=== PATIENT | male | born 1975 | race Caucasian/White ===

== ENCOUNTER 2016-09-13 21:06 | Inpatient (IN) | payer MEDICARE, OTHER ==
[2016-09-13] MEDS ORDERED: SODIUM CHLORIDE 0.9% 1,000 ML IV STA (23:23)
[2016-09-13 23:49] LABS: Glucose,Whole Blood 130 mg/dL (75-99)
[2016-09-13 23:49] LABS: Basophils # (A) 0.1 k/uL (0-0.2); Basophils % (A) 1 %; CH 26.3; CHCM 34.2; Eosinophils # (A) 0.4 k/uL (0-0.7); Eosinophils % (A) 3 %; HCT 42.2 % (39.0-53.0); HGB 14.1 gm/dL (13.0-17.5); Luc # (Auto) 0.25; Luc % (Auto) 2; Lymphocytes # (A) 5.2 k/uL (1.0-4.8); Lymphocytes % (A) 40 %; MCH 25.8 pg (25.0-35.0); MCHC 33.4 g/dL (31.0-37.0); MCV 77.2 fL (80.0-100.0); Mean Platelet Volume 6.5; Monocytes # (A) 0.8 k/uL (0-1.0); Monocytes % (A) 6 %; Neutrophils # (A) 6.3 k/uL (1.3-7.7); Neutrophils % (A) 48 %; RBC 5.46 m/uL (4.30-5.90); RDW 13.7 % (11.5-15.5); WBC (Perox) 12.19
[2016-09-14 00:08] LABS: ALT 56 U/L (21-72); AST 38 U/L (17-59); Alkaline Phosphatase 78 U/L (38-126); Anion Gap 13 mmol/L; Blood Urea Nitrogen 15 mg/dL (9-20); Calcium 10.3 mg/dL (8.4-10.2); Carbon Dioxide 21 mmol/L (22-30); Chloride 103 mmol/L (98-107); Glucose 120 mg/dL (74-99); Non-African American GFR(MDRD) >60 (>60 ml/min/1.73 sqM); Potassium 4.3 mmol/L (3.5-5.1); Sodium 137 mmol/L (137-145); Total Bilirubin 0.8 mg/dL (0.2-1.3); Total Protein 7.4 g/dL (6.3-8.2)
--- NOTE | 2016-09-14 00:32 | CT ---
EXAM: CT Head Without Intravenous Contrast CLINICAL HISTORY: Reason: seizure activity TECHNIQUE: Axial computed tomography images of the head/brain without intravenous contrast. CTDI is 60.30 mGy and DLP is 1253.30 mGy-cm. This CT exam was performed using one or more of the following dose reduction techniques: automated exposure control, adjustment of the mA and/or kV according to patient size, and/or use of iterative reconstruction technique. COMPARISON: 05/17/[address] FINDINGS: Brain: Unremarkable. No hemorrhage. No significant white matter disease. No edema. Ventricles: Unremarkable. No ventriculomegaly. Bones/joints: Unremarkable. No acute fracture. Soft tissues: Unremarkable. Sinuses: There is again a small round filling defects suggesting a mucous retention cyst or polyp in the right sphenoid sinus, currently 13 mm, was previously 11-12 mm, in AP diameter. The remaining paranasal sinuses are clear. Mastoid air cells: Unremarkable. No mastoid effusion. IMPRESSION: 1. No new acute intracranial abnormality is seen. 2. Minimally increased size of right sphenoid sinus mucous retention cyst versus polyp.
[2016-09-14 02:50] LABS: Appearance,Urine Clear (Clear); Bilirubin,Urine Negative (Negative); Glucose,Urine (UA) Negative (Negative); Ketones,Urine Trace (Negative); Leukocyte Esterase,Urine Negative (Negative); Nitrite,Urine Negative (Negative); PH, Urine 5.5 (5.0-8.0); Protein,Urine Trace (Negative); Specific Gravity,Urine 1.022 (1.001-1.035); UA Billing (MACRO vs. MICRO) CHEM; Urobilinogen,Urine <2.0 mg/dL (<2.0)
[2016-09-14] MEDS ORDERED: ACETAMINOPHEN TAB 325 MG TAB PO PRN (03:36)
[2016-09-14] MEDS ORDERED: NALOXONE 0.4 MG/ML 1 ML VIAL IV PRN (03:36)
[2016-09-14] MEDS ORDERED: ONDANSETRON 4 MG/2 ML VIAL IVP PRN (03:36)
--- NOTE | 2016-09-14 03:36 | ED ---
Seizure HPI - General Chief Complaint: Seizure Stated Complaint: Seizures Time Seen by Provider: 09/13/16 23:06 Source: patient Mode of arrival: wheelchair Limitations: no limitations - History of Present Illness Initial Comments: The patient stated he had 3 seizures today first one was at 2 PM this morning and at that time he felt he got lightheaded, he was presyncopal then he passed out he fell on the floor, it took him about 2 minutes to get back to his baseline second seizure according to the patient happened around 245 he again fell is not sure if he passed out completely or not and this time it took them about 10 minutes to get back to his baseline third seizure happened this lasted long and it affected his right arm and the right leg and it took about 10 minutes of patient's symptoms resolved. Right now he has a headache no chest pain no shortness of breath he has no history of TIA or CVA his vision is clear - Related Data Home Medications Medication Instructions Recorded Confirmed Insulin Glargine [Lantus] 50 units SQ HS 03/23/15 09/23/15 Ergocalciferol [Vitamin D2] 50,000 unit PO MONROY 05/17/15 09/23/15 Insulin Aspart [NovoLOG] See Protocol SQ AC-TID 05/17/15 09/23/15 hydrOXYzine PAMOATE [Vistaril] 25 mg PO TID 05/17/15 09/23/15 Butalb/Acetaminophen/Caffeine 1 - 2 tab PO Q4H PRN 08/24/15 09/23/15 [Fioricet] Lisinopril [Zestril] 10 mg PO HS 08/24/15 09/23/15 Multivitamins, Thera [Multivitamin] 1 tab PO DAILY 08/24/15 09/23/15 metFORMIN HCL 1,000 mg PO BID 08/24/15 09/23/15 risperiDONE MICROSPHERES 50 mg IM Q14D 09/23/15 09/23/15 [RisperDAL CONSTA] Previous Rx's Medication Instructions Recorded Hydrocodone/Acetaminophen [[place] 1 tab PO Q6HR PRN #20 tab 09/23/15 5-325] Allergies Allergy/AdvReac Type Severity Reaction Status Date / Time carbamazepine [From Tegretol] Allergy Severe Anaphylaxis Verified 09/23/15 10:50 lithium [[place]] Allergy Severe Anaphylaxis Verified 09/23/15 10:50 shellfish derived Allergy Severe Anaphylaxis Verified 09/23/15 10:50 aspartame Allergy Unknown Verified 09/23/15 10:50 citalopram hydrobromide AdvReac Intermediate Nausea & Verified 09/23/15 10:50 [From Celexa] Vomiting Review of Systems ROS Statement: Those systems with pertinent positive or pertinent negative responses have been documented in the HPI. ROS Other: All systems not noted in ROS Statement are negative. Past Medical History Past Medical History: Diabetes Mellitus, Hypertension, Seizure Disorder Additional Past Medical History / Comment(s): last seizure 2.5yrs ago History of Any Multi-Drug Resistant Organisms: None Reported Past Surgical History: Hernia Repair, Orthopedic Surgery, Tonsillectomy Additional Past Surgical History / Comment(s): right knee sx, upper palate reconstruction for sleep apnea Past Anesthesia/Blood Transfusion Reactions: No Reported Reaction Past Psychological History: Bipolar, Depression, Schizophrenia Smoking Status: Former smoker Past Alcohol Use History: None Reported Past Drug Use History: None Reported - Past Family History Mother Family Medical History: Diabetes Mellitus Additional Family Medical History / Comment(s): CHF General Exam - General Exam Comments Initial Comments: General: The patient is awake and alert, in no distress, and does not appear acutely ill. GCS is 15 Skin: Skin is warm and dry and no rashes or lesions are noted. Eye: Pupils are equal, round and reactive to light, extra-ocular movements are intact; there is normal conjunctiva bilaterally. Ears, nose, mouth and throat: There are moist mucous membranes and no oral lesions. Neck: The neck is supple, there is no tenderness or JVD. Cardiovascular: There is a regular rate and rhythm. No murmur, rub or gallop is appreciated. Respiratory: To auscultation bilateral, no wheezing no rhonchi no distress respiratory parker noticed Gastrointestinal: Soft, non-distended, non-tender abdomen without masses or organomegaly noted. There is no rebound or guarding present. Bowel sounds are unremarkable. Back: There is no tenderness to palpation in the midline. There is no obvious deformity. Musculoskeletal: Normal ROM, no tenderness, There is no pedal edema. There is no calf tenderness or swelling. No cords were appreciated. Neurological: CN II-XII intact, Cranial nerves III through XII are intact. There are no obvious motor or sensory deficits. Coordination appears grossly intact. Speech is normal. Psychiatric: Cooperative, appropriate mood & affect, normal judgment. Limitations: no limitations Course Vital Signs 09/13/16 09/14/16 09/14/16 21:08 00:00 02:05 Temperature 97.1 F L 97.7 F Pulse Rate 112 H 113 H 100 Respiratory 18 18 18 Rate Blood Pressure 131/73 124/70 136/63 O2 Sat by Pulse 96 98 100 Oximetry - Reevaluation(s) Reevaluation #1: 09/14/16 03:35 , He was reassessed 3 times, his white count is slightly elevated troponin is negative compressive metabolic panel and head CT and urinalysis all those are within normal limits considering pressing at 3 times he be admitted to Dr. Grossman service who has seen him back in the hospital 12/27/2014 and will consult neurology Medical Decision Making - Lab Data Result diagrams: 09/13/16 23:20 09/13/16 23:20 Lab Results 09/13/16 09/13/16 09/13/16 Range/Units 23:20 23:20 23:20 WBC 13.0 H (3.8-10.6) k/uL RBC 5.46 (4.30-5.90) m/uL Hgb 14.1 (13.0-17.5) gm/dL Hct 42.2 (39.0-53.0) % MCV 77.2 L (80.0-100.0) fL MCH 25.8 (25.0-35.0) pg MCHC 33.4 (31.0-37.0) g/dL RDW 13.7 (11.5-15.5) % Plt Count 358 (150-450) k/uL Neutrophils % 48 % Lymphocytes % 40 % Monocytes % 6 % Eosinophils % 3 % Basophils % 1 % Neutrophils # 6.3 (1.3-7.7) k/uL Lymphocytes # 5.2 H (1.0-4.8) k/uL Monocytes # 0.8 (0-1.0) k/uL Eosinophils # 0.4 (0-0.7) k/uL Basophils # 0.1 (0-0.2) k/uL Sodium 137 (137-145) mmol/L Potassium 4.3 (3.5-5.1) mmol/L Chloride 103 (98-107) mmol/L Carbon Dioxide 21 L (22-30) mmol/L Anion Gap 13 mmol/L BUN 15 (9-20) mg/dL Creatinine 1.02 (0.66-1.25) mg/dL Est GFR (MDRD) Af Amer >60 (>60 ml/min/1.73 sqM) Est GFR (MDRD) Non-Af >60 (>60 ml/min/1.73 sqM) Glucose 120 H (74-99) mg/dL POC Glucose (mg/dL) (75-99) mg/dL POC Glu Security Checker ID Calcium 10.3 H (8.4-10.2) mg/dL Total Bilirubin 0.8 (0.2-1.3) mg/dL AST 38 (17-59) U/L ALT 56 (21-72) U/L Alkaline Phosphatase 78 (38-126) U/L Troponin I <0.012 (0.000-0.034) ng/mL Total Protein 7.4 (6.3-8.2) g/dL Albumin 4.3 (3.5-5.0) g/dL Urine Color Urine Appearance (Clear) Urine pH (5.0-8.0) Ur Specific [place] (1.001-1.035) Urine Protein (Negative) Urine Glucose (UA) (Negative) Urine Ketones (Negative) Urine Blood (Negative) Urine Nitrite (Negative) Urine Bilirubin (Negative) Urine Urobilinogen (<2.0) mg/dL Ur Leukocyte Esterase (Negative) Urine Opiates Screen (NotDetected) Ur Oxycodone Screen (NotDetected) Urine Methadone Screen (NotDetected) Ur Propoxyphene Screen (NotDetected) Ur Barbiturates Screen (NotDetected) U Tricyclic Antidepress (NotDetected) Ur Phencyclidine Scrn (NotDetected) Ur Amphetamines Screen (NotDetected) U Methamphetamines Scrn (NotDetected) U Benzodiazepines Scrn (NotDetected) Urine Cocaine Screen (NotDetected) U Marijuana (THC) Screen (NotDetected) 09/13/16 09/14/16 Range/Units 23:40 02:24 WBC (3.8-10.6) k/uL RBC (4.30-5.90) m/uL Hgb (13.0-17.5) gm/dL Hct (39.0-53.0) % MCV (80.0-100.0) fL MCH (25.0-35.0) pg MCHC (31.0-37.0) g/dL RDW (11.5-15.5) % Plt Count (150-450) k/uL Neutrophils % % Lymphocytes % % Monocytes % % Eosinophils % % Basophils % % Neutrophils # (1.3-7.7) k/uL Lymphocytes # (1.0-4.8) k/uL Monocytes # (0-1.0) k/uL Eosinophils # (0-0.7) k/uL Basophils # (0-0.2) k/uL Sodium (137-145) mmol/L Potassium (3.5-5.1) mmol/L Chloride (98-107) mmol/L Carbon Dioxide (22-30) mmol/L Anion Gap mmol/L BUN (9-20) mg/dL Creatinine (0.66-1.25) mg/dL Est GFR (MDRD) Af Amer (>60 ml/min/1.73 sqM) Est GFR (MDRD) Non-Af (>60 ml/min/1.73 sqM) Glucose (74-99) mg/dL POC Glucose (mg/dL) 130 H (75-99) mg/dL POC Glu Security Checker ID Nawaf Hamilton Calcium (8.4-10.2) mg/dL Total Bilirubin (0.2-1.3) mg/dL AST (17-59) U/L ALT (21-72) U/L Alkaline Phosphatase (38-126) U/L Troponin I (0.000-0.034) ng/mL Total Protein (6.3-8.2) g/dL Albumin (3.5-5.0) g/dL Urine Color Yellow Urine Appearance Clear (Clear) Urine pH 5.5 (5.0-8.0) Ur Specific [place] 1.022 (1.001-1.035) Urine Protein Trace H (Negative) Urine Glucose (UA) Negative (Negative) Urine Ketones Trace H (Negative) Urine Blood Negative (Negative) Urine Nitrite Negative (Negative) Urine Bilirubin Negative (Negative) Urine Urobilinogen <2.0 (<2.0) mg/dL Ur Leukocyte Esterase Negative (Negative) Urine Opiates Screen Not Detected (NotDetected) Ur Oxycodone Screen Not Detected (NotDetected) Urine Methadone Screen Not Detected (NotDetected) Ur Propoxyphene Screen Not Detected (NotDetected) Ur Barbiturates Screen Not Detected (NotDetected) U Tricyclic Antidepress Not Detected (NotDetected) Ur Phencyclidine Scrn Not Detected (NotDetected) Ur Amphetamines Screen Not Detected (NotDetected) U Methamphetamines Scrn Not Detected (NotDetected) U Benzodiazepines Scrn Not Detected (NotDetected) Urine Cocaine Screen Not Detected (NotDetected) U Marijuana (THC) Screen Detected H (NotDetected) Disposition Clinical Impression: Seizure, Syncope, Tachycardia Disposition: ADMITTED IP TO THIS [facility] Condition: Fair Referrals: Nonstaff,Physician [Primary Care Provider] - 1-2 days
[2016-09-14] MEDS ORDERED: LORazepam 2 MG/ML SYRINGE IV PRN (04:08)
[2016-09-14] MEDS: HYDROcodone/APAP 5-325MG 1 EACH TAB PO PRN ×2 (05:07→11:49)
[2016-09-14 05:42] VITALS: RESP 16
[2016-09-14] MEDS: DIVALPROEX 500 MG TABLET.DR PO SCH ×2 (05:46→08:59)
[2016-09-14 07:44] LABS: Glucose,Whole Blood 120 mg/dL (75-99)
[2016-09-14] MEDS: hydrOXYzine PAMOATE 25 MG CAP PO SCH ×2 (08:58→17:31)
[2016-09-14] MEDS ORDERED: metFORMIN 500 MG TAB PO SCH (09:00)
[2016-09-14] MEDS ORDERED: MULTIVITAMINS, THERA 1 EACH TAB PO SCH (09:00)
[2016-09-14 09:24] VITALS: TEMP 97.4
[2016-09-14 12:04] LABS: Glucose,Whole Blood 89 mg/dL (75-99)
--- NOTE | 2016-09-14 16:11 | P.DS ---
Providers Date of admission: 09/14/16 03:36 Expected date of discharge: 09/14/16 Attending physician: Rashawn Rueda Primary care physician: Physician Nonsta Hospital Course: 41-year-old admitted on the day of admission to the emergency room after patient reportedly had experienced 3 seizures at home. Patient stated he got lightheadedness felt like he was going to pass out and he fell on the floor to come about 2 minutes to get back to his baseline had a second seizure apparently passed out and then stated he had another seizure. Patient stated he is not sure how long seizures last. Patient's symptoms resolved had no headache felt most shortness of breath has no history of a TIA or CVA patient is a history of having a seizure disorder but stated that he stopped taking his seizure medication not certain of the timeframe because he had been feeling so good he had not had any seizures he thinks it's been greater than 3 years. She was seen in the emergency room did have a CAT scan of the brain showed no new acute intracranial morality. Patient was felt to be hemodynamically stable and appropriate proceed with a discharge Impression Present on admission new onset seizure History of a seizure disorder stopped taking his seizure medication 3 years last seizure per patient report Urine drug screen positive for marijuana Present on admission leukocytosis suspect reactive Tachycardia present on admission suspect reactive Morbid obesity BMI 41 The above dictated assessment and findings were discussed with dr rueda. Impression and the plan of care have been dictated as directed. Aurora Tenorio nurse practitioner acting as a scribe for dr rueda Patient Condition at Discharge: Fair Plan - Discharge Summary New Discharge Prescriptions: New Divalproex [Depakote] 1,000 mg PO BID #120 tab Continue Insulin Glargine [Lantus] 50 units SQ HS Ergocalciferol [Vitamin D2 (DRISDOL)] 50,000 unit PO MONROY Insulin Aspart [NovoLOG] See Protocol SQ AC-TID Multivitamins, Thera [Multivitamin (formulary)] 1 tab PO DAILY Butalb/Acetaminophen/Caffeine [Fioricet 50-325-40] 1 - 2 tab PO Q4H PRN PRN Reason: Headache risperiDONE MICROSPHERES [RisperDAL CONSTA] 50 mg IM Q14D Hydrocodone/Acetaminophen [Lissie 5-325] 1 tab PO Q6HR PRN #20 tab PRN Reason: Pain Atorvastatin Calcium [Lipitor] 20 mg PO HS DULoxetine HCL [Cymbalta] 60 mg PO BID hydrOXYzine PAMOATE [Vistaril] 50 mg PO DAILY@1200 hydrOXYzine PAMOATE [Vistaril] 100 mg PO HS Lisinopril [Prinivil] 5 mg PO DAILY metFORMIN HCL [Glucophage] 850 mg PO TID traZODone HCL [Desyrel] 100 mg PO HS Discharge Medication List Insulin Glargine [Lantus] 50 units SQ HS 03/23/15 [History] Ergocalciferol [Vitamin D2 (DRISDOL)] 50,000 unit PO MONROY 05/17/15 [History] Insulin Aspart [NovoLOG] See Protocol SQ AC-TID 05/17/15 [History] Butalb/Acetaminophen/Caffeine [Fioricet 50-325-40] 1 - 2 tab PO Q4H PRN [History] Multivitamins, Thera [Multivitamin (formulary)] 1 tab PO DAILY 08/24/15 [History ] Hydrocodone/Acetaminophen [Lissie 5-325] 1 tab PO Q6HR PRN #20 tab 09/23/15 [Rx] risperiDONE MICROSPHERES [RisperDAL CONSTA] 50 mg IM Q14D 09/23/15 [History] Atorvastatin Calcium [Lipitor] 20 mg PO HS 09/14/16 [History] DULoxetine HCL [Cymbalta] 60 mg PO BID 09/14/16 [History] Divalproex [Depakote] 1,000 mg PO BID #120 tab 09/14/16 [Rx] Lisinopril [Prinivil] 5 mg PO DAILY 09/14/16 [History] hydrOXYzine PAMOATE [Vistaril] 50 mg PO DAILY@1200 09/14/16 [History] hydrOXYzine PAMOATE [Vistaril] 100 mg PO HS 09/14/16 [History] metFORMIN HCL [Glucophage] 850 mg PO TID 09/14/16 [History] traZODone HCL [Desyrel] 100 mg PO HS 09/14/16 [History] Follow up Appointment(s)/Referral(s): Nonstaff,Physician [Primary Care Provider] - 1-2 days Rashawn Rueda MD [STAFF PHYSICIAN] - 09/15/16 Discharge Disposition: HOME SELF-CARE
[2016-09-14 16:33] VITALS: BP 102/55; PULSE 86
--- NOTE | 2016-09-14 18:47 | HP ---
DATE OF ADMISSION: CHIEF COMPLAINT: Three seizures. HISTORY OF PRESENT ILLNESS: This is another admission for this 41-year-old overweight white male. He apparently had 3 different seizures at home in rapid succession. He does not remember them and he was not incontinent. He was brought to the emergency room. He has not been seen in the office for 2 years. He does have a history of migraines, but no seizures. He has a history of depression, hypertension and diabetes. REVIEW OF SYSTEMS: He denies any headaches, focal neurologic deficits, change in vision or hearing, chest pain, cough, hemoptysis, murmurs, rheumatic fever, orthopnea, PND, abdominal pain, nausea, vomiting, hematemesis, melena, hematochezia, jaundice, hepatitis, hematuria, frequency, urgency, arthralgias, polys, etc. Past medical history, family history and personal and social histories reveal that he is ALLERGIC TO: 1. SHELLFISH. 2. LITHIUM. 3. CELEXA. 4. TEGRETOL. Current medications include: 1. Metformin. 2. Lantus. 3. Lisinopril. 4. Cymbalta. 5. Risperdal. 6. Vistaril. He denies surgery. He smokes marijuana but does not drink. PHYSICAL EXAMINATION: Blood pressure 134/78 with pulse of 70, respirations 18, and he is afebrile. In general, he appeared to be overweight and in no acute distress. Skin color is normal. Skin is warm and dry. Lymph nodes are not enlarged. Head, ears, eyes, nose, mouth and throat were normal. Neck veins were not distended. Thyroid was not enlarged. Chest is clear. Cardiac exam is normal. No murmurs or extra sounds. ABDOMEN: Protuberant, soft, nontender. Extremities are normal. Neurologically he is intact. He is admitted to the hospital with the diagnoses: 1. Three grand mal seizures by history. 2. Headache. 3. Type 2 [id number] diabetes mellitus. 4. Hypertension. 5. Depression. 6. Obesity. PLAN: 1. Bed rest. 2. Suicide precautions. 3. Depakote 1 gram twice a day. He had a seizure about 2 years ago and then was taken off medication. He was told that he probably should go on medicine for his seizures and stay on it for life. He can go home later today.
[2016-09-14 20:45] LABS: Hemoglobin A1C 6.4 % (4.2-6.1)
[2016-09-14] MEDS ORDERED: INSULIN GLARGINE 100 UNIT/ML 10 ML VIAL SQ SCH (21:00)
[2016-09-14] MEDS ORDERED: LISINOPRIL 10 MG TAB PO SCH (21:00)
--- NOTE | 2016-09-15 21:46 | PN ---
DATE OF SERVICE: 09/14/2016 CHIEF COMPLAINT: Seizure. HISTORY OF PRESENT ILLNESS: The gentleman is doing well. He is having no problems. If he is going to stay stable, he can probably go home this afternoon and we will see him in the office in several days. He will go home on Depakote 1 gram twice a day. His discharge will be arranged by the nurse practitioner.
[2016-09-17] MEDS ORDERED: ERGOCALCIFEROL 50,000 UNIT CAP PO SCH (09:00)
== END 2016-09-14 18:30 | disposition home or self-care (01) | DRG 101 ==
LOC: EC 21:06 → 5MS5E 09-14 03:36
PROVIDERS: ADMIT Family Medicine; ATTEND Family Medicine
DX: G40.409 Other generalized epilepsy and epileptic syndromes, not intractable, without status epilepticus (principal); I10 Essential (primary) hypertension; Z68.41 Body mass index [BMI] 40.0-44.9, adult; E11.9 Type 2 diabetes mellitus without complications; D72.829 Elevated white blood cell count, unspecified; F32.9 Major depressive disorder, single episode, unspecified; F12.90 Cannabis use, unspecified, uncomplicated; E66.01 Morbid (severe) obesity due to excess calories; R51 Headache; Z88.8 Allergy status to other drugs, medicaments and biological substances; Z91.013 Allergy to seafood; Z79.84 Long term (current) use of oral hypoglycemic drugs; Z79.4 Long term (current) use of insulin; Z79.899 Other long term (current) drug therapy
CPT/HCPCS: 36415; 70450; 80053; 80306; 81003; 83036; 84484; 85025; 93005; 96360; 96361; 99285

== ENCOUNTER 2017-07-13 18:47 | Emergency (ER) | payer MEDICARE, OTHER ==
[2017-07-13] MEDS ORDERED: SODIUM CHLORIDE 0.9% 1,000 ML IV STA ×2 (19:16)
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
[2017-07-13 19:45] LABS: Basophils # (A) 0.1 k/uL (0-0.2); Basophils % (A) 0 %; Eosinophils # (A) 0.3 k/uL (0-0.7); Eosinophils % (A) 3 %; HCT 36.7 % (39.0-53.0); HGB 12.3 gm/dL (13.0-17.5); Lymphocytes # (A) 3.7 k/uL (1.0-4.8); Lymphocytes % (A) 33 %; MCHC 33.4 g/dL (31.0-37.0); MCV 77.8 fL (80.0-100.0); Mean Platelet Volume 7.2; Monocytes # (A) 0.8 k/uL (0-1.0); Monocytes % (A) 7 %; Neutrophils # (A) 6.1 k/uL (1.3-7.7); Neutrophils % (A) 54 %; Platelet Count 318 k/uL (150-450); RBC 4.71 m/uL (4.30-5.90); RDW 13.5 % (11.5-15.5); WBC 11.3 k/uL (3.8-10.6)
[2017-07-13 19:55] LABS: ALT 45 U/L (21-72); AST 28 U/L (17-59); Acetaminophen 20.8 ug/mL; Albumin 3.7 g/dL (3.5-5.0); Alkaline Phosphatase 77 U/L (38-126); Anion Gap 10 mmol/L; Blood Urea Nitrogen 13 mg/dL (9-20); Calcium 8.9 mg/dL (8.4-10.2); Carbon Dioxide 21 mmol/L (22-30); Chloride 104 mmol/L (98-107); Glucose 215 mg/dL (74-99); Magnesium 1.5 mg/dL (1.6-2.3); Potassium 3.7 mmol/L (3.5-5.1); Sodium 135 mmol/L (137-145); Total Bilirubin 0.2 mg/dL (0.2-1.3); Total Protein 6.3 g/dL (6.3-8.2)
[2017-07-13 20:18] LABS: Creatine Kinase MB 0.6 ng/mL (0.0-2.4)
[2017-07-13 21:35] LABS: Amphetamine Screen,Urine Not Detected (NotDetected); Barbiturate Screen,Urine Detected (NotDetected); Benzodiazepines Screen,Urine Not Detected (NotDetected); Cocaine Screen,Urine Not Detected (NotDetected); Methadone Screen, Urine Not Detected (NotDetected); Opiate Screen,Urine Not Detected (NotDetected); Oxycodone Screen, Urine Not Detected (NotDetected); Phencyclidine Screen,Urine Not Detected (NotDetected); Tricyclic Antidepressant,Urine Not Detected (NotDetected); Urn Cannabinoid Scrn Detected (NotDetected)
[2017-07-14 01:43] VITALS: TEMP 98.1
[2017-07-14 01:44] VITALS: BP 110/59; PULSE 74; RESP 20
== END 2017-07-14 02:32 | disposition home or self-care (01) ==
LOC: EC 18:47
DX: T39.1X2A Poisoning by 4-Aminophenol derivatives, intentional self-harm, initial encounter (principal); R51 Headache; E11.9 Type 2 diabetes mellitus without complications; I10 Essential (primary) hypertension; G40.909 Epilepsy, unspecified, not intractable, without status epilepticus; F31.9 Bipolar disorder, unspecified; F20.9 Schizophrenia, unspecified; Z87.891 Personal history of nicotine dependence; Z79.4 Long term (current) use of insulin; Z79.899 Other long term (current) drug therapy; Z88.8 Allergy status to other drugs, medicaments and biological substances; Z91.013 Allergy to seafood; Z91.018 Allergy to other foods
CPT/HCPCS: 36415; 80053; 80306; 82550; 82553; 83520; 83735; 85025; 85379; 96360; 96361; 99285

== ENCOUNTER 2017-11-18 01:06 | Emergency (ER) | payer MEDICARE, OTHER ==
[2017-11-18] MEDS ORDERED: KETOROLAC 30 MG/ML 1 ML VIAL IM STA (01:18)
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
--- NOTE | 2017-11-18 01:30 | XR ---
EXAMINATION TYPE: XR knee complete RT DATE OF EXAM: 11/18/2017 COMPARISON: 09/23/2015 HISTORY: Post reduction. Patella dislocation. TECHNIQUE: 3 views FINDINGS: There is small knee joint effusion. There is minor spurring on the patella. I see no fractu re nor dislocation. Joint spaces are fairly normal IMPRESSION: Small joint effusion. No fracture. No patella dislocation. Joint effusion appears decreas ed compared to old exam.
[2017-11-18 01:56] VITALS: RESP 20
[2017-11-18] MEDS ORDERED: SODIUM CHLORIDE 0.9% 1,000 ML IV STA (02:23)
--- NOTE | 2017-11-18 02:57 | XR ---
EXAMINATION TYPE: XR chest 2V DATE OF EXAM: 11/18/2017 COMPARISON: 02/28/2015 HISTORY: Abnormal cardiogram TECHNIQUE: Frontal and lateral views of the chest are obtained. FINDINGS: Heart and mediastinum are normal. Lungs are clear. Diaphragm is normal. Bony thorax appear s normal. There are chest leads. IMPRESSION: Normal chest. No change.
[2017-11-18 02:58] LABS: Basophils % (A) 0 %; Eosinophils # (A) 0.2 k/uL (0-0.7); Eosinophils % (A) 2 %; HGB 12.7 gm/dL (13.0-17.5); Lymphocytes # (A) 1.8 k/uL (1.0-4.8); Lymphocytes % (A) 14 %; MCH 25.1 pg (25.0-35.0); MCHC 32.6 g/dL (31.0-37.0); MCV 77.1 fL (80.0-100.0); Microcytosis Slight; Monocytes # (A) 0.8 k/uL (0-1.0); Monocytes % (A) 6 %; Neutrophils # (A) 9.7 k/uL (1.3-7.7); Neutrophils % (A) 76 %; Platelet Count 338 k/uL (150-450); RBC 5.06 m/uL (4.30-5.90); RDW 14.9 % (11.5-15.5); WBC 12.8 k/uL (3.8-10.6)
[2017-11-18 03:08] LABS: ALT 42 U/L (21-72); AST 27 U/L (17-59); Albumin 3.7 g/dL (3.5-5.0); Alkaline Phosphatase 75 U/L (38-126); Anion Gap 13 mmol/L; Blood Urea Nitrogen 17 mg/dL (9-20); Calcium 9.5 mg/dL (8.4-10.2); Carbon Dioxide 18 mmol/L (22-30); Chloride 108 mmol/L (98-107); Glucose 266 mg/dL (74-99); Magnesium 1.3 mg/dL (1.6-2.3); Potassium 4.2 mmol/L (3.5-5.1); Sodium 139 mmol/L (137-145); Total Bilirubin 0.3 mg/dL (0.2-1.3); Total Protein 6.4 g/dL (6.3-8.2)
[2017-11-18] MEDS ORDERED: MAGNESIUM SULFATE-D5W PMX 1 GM in DEXTROSE/WATER 1 100ML.BAG IVPB ONE (03:10)
[2017-11-18 03:17] LABS: Creatine Kinase 268 U/L (55-170)
[2017-11-18 03:30] LABS: Creatine Kinase MB 0.8 ng/mL (0.0-2.4); Troponin I <0.012 ng/mL (0.000-0.034)
[2017-11-18 03:32] LABS: D-Dimer 1.39 mg/L FEU (<0.60); Partial Thromboplastin Time 21.7 sec (22.0-30.0)
--- NOTE | 2017-11-18 04:10 | CT ---
EXAMINATION TYPE: CT chest angio for PE DATE OF EXAM: 11/18/2017 COMPARISON: None HISTORY: r/o pe CT DLP: 881.70 mGycm Automated exposure control for dose reduction was used. CONTRAST: CT Chest for pulmonary embolism performed with with IV Contrast, patient injected with 70 mL of Isovu e 370. FINDINGS: There are 3-D post processed images. The lungs are clear of infiltrate. There is no evidence of a pulmonary mass. There is no pleural effu daija. Heart size is normal. There is no pericardial effusion. There is no mediastinal adenopathy. There are no hilar masses. There is normal contrast opacification of the pulmonary arteries. There are no fill ing defects. There is no evidence of aortic aneurysm or dissection. There is anterior wedging of T6 v ertebra with 25 % loss of height. This appears unchanged compared to old chest x-ray of 02/28/2015. IMPRESSION: Negative exam. No evidence of pulmonary embolism.
[2017-11-18] MEDS ORDERED: ACETAMINOPHEN TAB 500 MG TAB PO STA (04:24)
[2017-11-18 04:40] VITALS: BP 130/61; PULSE 109; TEMP 98.8
== END 2017-11-18 04:15 | disposition home or self-care (01) ==
LOC: EC 01:06
DX: S83.004A Unspecified dislocation of right patella, initial encounter (principal); E83.42 Hypomagnesemia; R00.0 Tachycardia, unspecified; E11.9 Type 2 diabetes mellitus without complications; I10 Essential (primary) hypertension; G40.909 Epilepsy, unspecified, not intractable, without status epilepticus; F31.9 Bipolar disorder, unspecified; F20.9 Schizophrenia, unspecified; Z87.891 Personal history of nicotine dependence; Z98.890 Other specified postprocedural states; Z79.4 Long term (current) use of insulin; Z79.899 Other long term (current) drug therapy; Z88.8 Allergy status to other drugs, medicaments and biological substances; Z91.013 Allergy to seafood; Y04.0XXA Assault by unarmed brawl or fight, initial encounter; Y92.89 Other specified places as the place of occurrence of the external cause
CPT/HCPCS: 99285 ×2; 27560 ×2; 96360 ×2; 96372 ×2; 36415; 93005; 85379; 80053; 82550; 82553; 83735; 84484; 85025; 85610; 85730; 73562; 71046; 71275; L1830; J1885; Q9967

== ENCOUNTER 2018-07-04 15:39 | Inpatient (IN) | payer MEDICARE, OTHER ==
[2018-07-04] MEDS ORDERED: ACETAMINOPHEN TAB 500 MG TAB PO STA (15:56)
[2018-07-04] MEDS: SODIUM CHLORIDE 0.9% 1,000 ML IV STA ×2 (16:13→18:33)
--- NOTE | 2018-07-04 16:27 | XR ---
EXAMINATION TYPE: XR chest 1V portable DATE OF EXAM: 07/04/2018 Comparison: 11/18/2017 Clinical History: 43-year-old male tachycardia Findings: Heart normal size. Mild interstitial prominence. Patchy medial right basilar and right basilar densit y. No pleural effusion. Impression: Patchy medial right basilar atelectasis or developing infiltrate.
[2018-07-04 16:30] LABS: HCT 37.5 % (39.0-53.0); HGB 12.1 gm/dL (13.0-17.5); MCH 23.9 pg (25.0-35.0); MCHC 32.3 g/dL (31.0-37.0); Mean Platelet Volume 7.4; Microcytosis Slight; Platelet Count 479 k/uL (150-450); RBC 5.07 m/uL (4.30-5.90); RDW 14.3 % (11.5-15.5); WBC 11.6 k/uL (3.8-10.6)
[2018-07-04 16:36] LABS: INR 1.3 (<1.2); Prothrombin Time 13.5 sec (9.0-12.0)
[2018-07-04 17:01] LABS: Albumin 2.8 g/dL (3.5-5.0); Potassium 3.6 mmol/L (3.5-5.1); Total Bilirubin 1.5 mg/dL (0.2-1.3); Total Protein 6.4 g/dL (6.3-8.2)
--- NOTE | 2018-07-04 17:02 | ED ---
General Adult HPI - General Chief complaint: Fever Stated complaint: AMS Time Seen by Provider: 07/04/18 15:42 Source: EMS Mode of arrival: EMS Limitations: no limitations - History of Present Illness Initial comments: Dictation was produced using [employer] dictation software. please excuse any grammatical, word or spelling errors. Chief Complaint:-year-old male with past medical history of diabetes, SVT, seizure disorder, hypertension presents with palpitations and feeling generally weak. History of Present Illness: Patient's 43-year-old male he has multiple comorbidities. Patient is brought in by EMS for feelings of lethargy, cough and palpitations. Patient has a history of SVT. EMS was called and patient brought to the emergency department. They performed an EKG was concerned of SVT. Patient did get 6 mg of adenosine through an IV placed in the right hand. Patient did not convert. Patient has been feeling fever, chills and night sweats. He does report coughing. The ROS documented in this emergency department record has been reviewed and confirmed by me. Those systems with pertinent positive or negative responses have been documented in the HPI. All other systems are other negative and/or noncontributory. PHYSICAL EXAM: General Impression: Alert and oriented x3 HEENT: Normocephalic atraumatic, extra-ocular movements intact, pupils equal and reactive to light bilaterally, mucous membranes moist. Cardiovascular: Tachycardic and regular Chest: Bilateral breath sounds Abdomen: Bowel sounds present, abdomen soft, non-tender, non-distended, no organomegaly, obese Musculoskeletal: Pulses present and equal in all extremities, no peripheral edema Motor: no focal deficits noted Neurological: CN II-XII grossly intact, no focal motor or sensory deficits noted Skin: Intact with no visualized rashes Psych: Normal affect and mood ED course: 43-year-old male presents with generalized weakness, constitutional symptoms and palpitations. Upon arrival shows temperature 11.6 with a heart rate of 175. EKG was performed showing sinus tachycardia. Patient given Tylenol and intravenous fluids. Chest x-ray shows right medial infiltrate suspicious for pneumonia. Patient continues to be tachycardic despite intravenous fluids. Patient given 2500 mL fluid bolus for ideal body weight of 171 kg. Patient started on vancomycin and Zosyn. There is concern for sepsis given that there is findings of an organ dysfunction. Patient had several vague complaints. Lab return evaluation obtained. Chay eukocytosis of 11.6. There is findings of microcytic anemia with platelet thrombocytosis of 479. Patient had neutrophilia. Coag panel unremarkable. Arterial blood gases was obtained showing pCO2 of 18. This likely represents metabolic acidosis with respiratory compensation. Metabolic panel was obtained showing sodium 132. Anion gap acidosis with a gap of 22 and a CO2 14. Creatinine 1.3. Glucose 190. Lactic acidosis 9.7. Influenza test negative. CT chest abdomen pelvis was obtained given that degree of tachycardia I felt was inappropriate considering patient's headache symptoms. CT chest abdomen pelvis was obtained showing intra-abdominal abscess with thickened appendix. This is consistent with appendicitis with appendiceal rupture. Patient antibiotics are appropriate. Patient care was discussed with general surgeon who requests patient be placed in the intensive care unit. He is agreeable with antibiotics that he received. Focused exam was performed and found to be unchanged. Patient's heart rate and blood pressure improved after intravenous fluids. Patient is otherwise well-appearing at this time. Given degree of illness and significant level abnormalities patient to be disposition to intensive care unit. Patient case was discussed with sustainability consultant who is willing to accept patient to the ICU. EKG interpretation: Ventricular rate 176, sinus tachycardia, AR interval 120, QRS 88, QTC 462. No AR prolongation, no QTC prolongation, no ST or T-wave changes noted. Overall, this EKG is unremarkable - Related Data Home Medications Medication Instructions Recorded Confirmed Insulin Glargine [Lantus] 50 units SQ HS 03/23/15 07/04/18 Atorvastatin Calcium [Lipitor] 20 mg PO HS 09/14/16 07/04/18 DULoxetine HCL [Cymbalta] 60 mg PO DAILY 09/14/16 07/04/18 metFORMIN HCL [Glucophage] 850 mg PO TID 09/14/16 07/04/18 Atenolol 25 mg PO DAILY 07/04/18 07/04/18 DULoxetine HCL [Cymbalta] 30 mg PO DAILY 07/04/18 07/04/18 Divalproex [Depakote] 250 mg PO HS 07/04/18 07/04/18 Lisinopril [Zestril] 10 mg PO DAILY 07/04/18 07/04/18 Vortioxetine Hydrobromide 10 mg PO DAILY 07/04/18 07/04/18 [Trintellix] Allergies Allergy/AdvReac Type Severity Reaction Status Date / Time carbamazepine [From Tegretol] Allergy Severe Anaphylaxis Verified 07/04/18 17:02 lithium [[place]] Allergy Severe Anaphylaxis Verified 07/04/18 17:02 shellfish derived Allergy Severe Anaphylaxis Verified 07/04/18 17:02 aspartame Allergy Unknown Verified 07/04/18 17:02 citalopram hydrobromide AdvReac Intermediate Nausea & Verified 07/04/18 17:02 [From Celexa] Vomiting Review of Systems ROS Statement: Those systems with pertinent positive or pertinent negative responses have been documented in the HPI. ROS Other: All systems not noted in ROS Statement are negative. Past Medical History Past Medical History: Diabetes Mellitus, Hypertension, Seizure Disorder Additional Past Medical History / Comment(s): last seizure 2.5yrs ago History of Any Multi-Drug Resistant Organisms: None Reported Past Surgical History: Hernia Repair, Orthopedic Surgery, Tonsillectomy Additional Past Surgical History / Comment(s): right knee sx, upper palate reconstruction for sleep apnea Past Anesthesia/Blood Transfusion Reactions: No Reported Reaction Past Psychological History: Bipolar, Depression, Schizophrenia Smoking Status: Former smoker Past Alcohol Use History: None Reported Past Drug Use History: None Reported - Past Family History Mother Family Medical History: Diabetes Mellitus Additional Family Medical History / Comment(s): CHF General Exam Limitations: no limitations Course Vital Signs 07/04/18 07/04/18 07/04/18 15:43 15:48 15:50 Temperature 101.6 F H Pulse Rate 175 H 176 H Respiratory 20 14 Rate Blood Pressure 139/55 139/55 O2 Sat by Pulse 97 96 96 Oximetry 07/04/18 07/04/18 07/04/18 16:00 16:10 16:20 Temperature Pulse Rate 176 H 174 H 170 H Respiratory 28 H 25 H 20 Rate Blood Pressure 105/62 147/55 125/66 O2 Sat by Pulse 94 L 98 96 Oximetry 07/04/18 07/04/18 07/04/18 16:30 16:40 16:50 Temperature Pulse Rate 165 H 161 H 158 H Respiratory 18 16 26 H Rate Blood Pressure 125/66 123/70 118/79 O2 Sat by Pulse 95 96 96 Oximetry 07/04/18 07/04/18 07/04/18 17:00 17:10 17:25 Temperature Pulse Rate 158 H 156 H 135 H Respiratory 36 H 30 H 20 Rate Blood Pressure 118/79 110/61 O2 Sat by Pulse 96 100 Oximetry Procedures - Sepsis Sepsis Focused Exam #1 Time Sepsis Criteria Met: 06:30 Sepsis Focused Exam Date: 07/04/18 Sepsis Focused Exam Time: 18:00 Sepsis Focused Exam Complete: Yes Vital Signs & RN Notes Reviewed: Yes Capillary Refill: < 2 Seconds: Fingers, Toes Peripheral Pulses: Weak: Radial (R), Radial (L), Posterior Tibialis (R), Posterior Tibialis (L), Dorsalis Pedis (R), Dorsalis Pedis (L) Skin Color: Normal for Patient, Flushed Respiratory Exam: rales Cardiovascular Exam: tachycardia Medical Decision Making - Lab Data Result diagrams: 07/04/18 16:06 07/04/18 16:06 Lab Results 07/04/18 07/04/18 07/04/18 Range/Units 16:06 16:06 16:06 WBC 11.6 H (3.8-10.6) k/uL RBC 5.07 (4.30-5.90) m/uL Hgb 12.1 L (13.0-17.5) gm/dL Hct 37.5 L (39.0-53.0) % MCV 74.0 L (80.0-100.0) fL MCH 23.9 L (25.0-35.0) pg MCHC 32.3 (31.0-37.0) g/dL RDW 14.3 (11.5-15.5) % Plt Count 479 H (150-450) k/uL Neutrophils % (Manual) 66 % Band Neutrophils % 14 % Lymphocytes % (Manual) 8 % Monocytes % (Manual) 2 % Eosinophils % (Manual) 1 % Metamyelocytes % 3 % Myelocytes % 7 % Neutrophils # (Manual) 9.20 H (1.3-7.7) k/uL Lymphocytes # (Manual) 0.93 L (1.0-4.8) k/uL Monocytes # (Manual) 0.23 (0-1.0) k/uL Eosinophils # (Manual) 0.12 (0-0.7) k/uL Metamyelocytes # (Man) 0.35 H (0) k/uL Myelocytes # (Manual) 0.81 H (0) k/uL Nucleated RBCs 0 (0-0) /100 WBC Manual Slide Review Performed Toxic Granulation Present Toxic Vacuolation Present Large Platelets Present Polychromasia Present Microcytosis Slight PT (9.0-12.0) sec INR (<1.2) Sample Site ABG pH (7.35-7.45) ABG pCO2 (35-45) mmHg ABG pO2 (83-108) mmHg ABG HCO3 (21-25) mmol/L ABG Total CO2 (19-24) mmol/L ABG O2 Saturation (94-97) % ABG Base Excess mmol/L Jonh Test FiO2 % Sodium 132 L (137-145) mmol/L Potassium 3.6 (3.5-5.1) mmol/L Chloride 96 L (98-107) mmol/L Carbon Dioxide 14 L (22-30) mmol/L Anion Gap 22 mmol/L BUN 11 (9-20) mg/dL Creatinine 1.31 H (0.66-1.25) mg/dL Est GFR (CKD-EPI)AfAm 76 (>60 ml/min/1.73 sqM) Est GFR (CKD-EPI)NonAf 66 (>60 ml/min/1.73 sqM) Glucose 190 H (74-99) mg/dL Plasma Lactic Acid Chay (0.7-2.0) mmol/L Calcium 9.0 (8.4-10.2) mg/dL Total Bilirubin 1.5 H (0.2-1.3) mg/dL AST 47 (17-59) U/L ALT 38 (21-72) U/L Alkaline Phosphatase 365 H (38-126) U/L Troponin I (0.000-0.034) ng/mL Total Protein 6.4 (6.3-8.2) g/dL Albumin 2.8 L (3.5-5.0) g/dL Influenza Type A RNA Not Detected (Not Detectd) Influenza Type B (PCR) Not Detected (Not Detectd) 07/04/18 07/04/18 07/04/18 Range/Units 16:06 16:06 16:06 WBC (3.8-10.6) k/uL RBC (4.30-5.90) m/uL Hgb (13.0-17.5) gm/dL Hct (39.0-53.0) % MCV (80.0-100.0) fL MCH (25.0-35.0) pg MCHC (31.0-37.0) g/dL RDW (11.5-15.5) % Plt Count (150-450) k/uL Neutrophils % (Manual) % Band Neutrophils % % Lymphocytes % (Manual) % Monocytes % (Manual) % Eosinophils % (Manual) % Metamyelocytes % % Myelocytes % % Neutrophils # (Manual) (1.3-7.7) k/uL Lymphocytes # (Manual) (1.0-4.8) k/uL Monocytes # (Manual) (0-1.0) k/uL Eosinophils # (Manual) (0-0.7) k/uL Metamyelocytes # (Man) (0) k/uL Myelocytes # (Manual) (0) k/uL Nucleated RBCs (0-0) /100 WBC Manual Slide Review Toxic Granulation Toxic Vacuolation Large Platelets Polychromasia Microcytosis PT 13.5 H (9.0-12.0) sec INR 1.3 H (<1.2) Sample Site ABG pH (7.35-7.45) ABG pCO2 (35-45) mmHg ABG pO2 (83-108) mmHg ABG HCO3 (21-25) mmol/L ABG Total CO2 (19-24) mmol/L ABG O2 Saturation (94-97) % ABG Base Excess mmol/L Jonh Test FiO2 % Sodium (137-145) mmol/L Potassium (3.5-5.1) mmol/L Chloride (98-107) mmol/L Carbon Dioxide (22-30) mmol/L Anion Gap mmol/L BUN (9-20) mg/dL Creatinine (0.66-1.25) mg/dL Est GFR (CKD-EPI)AfAm (>60 ml/min/1.73 sqM) Est GFR (CKD-EPI)NonAf (>60 ml/min/1.73 sqM) Glucose (74-99) mg/dL Plasma Lactic Acid Chay 9.7 H* (0.7-2.0) mmol/L Calcium (8.4-10.2) mg/dL Total Bilirubin (0.2-1.3) mg/dL AST (17-59) U/L ALT (21-72) U/L Alkaline Phosphatase (38-126) U/L Troponin I <0.012 (0.000-0.034) ng/mL Total Protein (6.3-8.2) g/dL Albumin (3.5-5.0) g/dL Influenza Type A RNA (Not Detectd) Influenza Type B (PCR) (Not Detectd) 07/04/18 Range/Units 17:45 WBC (3.8-10.6) k/uL RBC (4.30-5.90) m/uL Hgb (13.0-17.5) gm/dL Hct (39.0-53.0) % MCV (80.0-100.0) fL MCH (25.0-35.0) pg MCHC (31.0-37.0) g/dL RDW (11.5-15.5) % Plt Count (150-450) k/uL Neutrophils % (Manual) % Band Neutrophils % % Lymphocytes % (Manual) % Monocytes % (Manual) % Eosinophils % (Manual) % Metamyelocytes % % Myelocytes % % Neutrophils # (Manual) (1.3-7.7) k/uL Lymphocytes # (Manual) (1.0-4.8) k/uL Monocytes # (Manual) (0-1.0) k/uL Eosinophils # (Manual) (0-0.7) k/uL Metamyelocytes # (Man) (0) k/uL Myelocytes # (Manual) (0) k/uL Nucleated RBCs (0-0) /100 WBC Manual Slide Review Toxic Granulation Toxic Vacuolation Large Platelets Polychromasia Microcytosis PT (9.0-12.0) sec INR (<1.2) Sample Site Right Brachial ABG pH 7.49 H (7.35-7.45) ABG pCO2 18 L* (35-45) mmHg ABG pO2 99 (83-108) mmHg ABG HCO3 14 L (21-25) mmol/L ABG Total CO2 14 L (19-24) mmol/L ABG O2 Saturation 100.0 H (94-97) % ABG Base Excess -9.6 mmol/L Jonh Test Yes FiO2 28 % Sodium (137-145) mmol/L Potassium (3.5-5.1) mmol/L Chloride (98-107) mmol/L Carbon Dioxide (22-30) mmol/L Anion Gap mmol/L BUN (9-20) mg/dL Creatinine (0.66-1.25) mg/dL Est GFR (CKD-EPI)AfAm (>60 ml/min/1.73 sqM) Est GFR (CKD-EPI)NonAf (>60 ml/min/1.73 sqM) Glucose (74-99) mg/dL Plasma Lactic Acid Chay (0.7-2.0) mmol/L Calcium (8.4-10.2) mg/dL Total Bilirubin (0.2-1.3) mg/dL AST (17-59) U/L ALT (21-72) U/L Alkaline Phosphatase (38-126) U/L Troponin I (0.000-0.034) ng/mL Total Protein (6.3-8.2) g/dL Albumin (3.5-5.0) g/dL Influenza Type A RNA (Not Detectd) Influenza Type B (PCR) (Not Detectd) Critical Care Time Critical Care Time: Yes Total Critical Care Time: 47 Disposition Clinical Impression: Sepsis, Acidosis, Rupture of appendix, Intra-abdominal abscess Disposition: ADMITTED IP TO THIS [facility] Condition: Critical [facility]errals: [facility] [Primary Care Provider] - 1-2 days Decision Time: 18:07
[2018-07-04] MEDS ORDERED: SODIUM CHLORIDE 0.9% 1,500 ML IV STA (17:04)
[2018-07-04] MEDS ORDERED: CEFEPIME 2 GM in SODIUM CHLORIDE 0.9% 100 ML IVPB STA (17:08)
[2018-07-04 17:19] LABS: Band Neutrophils % 14 %; Eosinophils # (M) 0.12 k/uL (0-0.7); Lymphocytes # (M) 0.93 k/uL (1.0-4.8); Metamyelocytes # (M) 0.35 k/uL (0); Metamyelocytes % 3 %; Monocytes # (M) 0.23 k/uL (0-1.0); Myelocytes # (M) 0.81 k/uL (0); Myelocytes % 7 %; Neutrophils % (M) 66 %; Nucleated Red Blood Cells 0 /100 WBC (0-0); Total Cells Counted 200
[2018-07-04 17:20] LABS: Large Platelets Present; Polychromasia Present; Toxic Granulation Present
[2018-07-04 17:21] LABS: Toxic Vacuolation Present
[2018-07-04] MEDS ORDERED: VANCOMYCIN 2,250 MG in SODIUM CHLORIDE 0.9% 500 ML 500 ML IVPB ONE (17:30)
[2018-07-04] MEDS ORDERED: VANCOMYCIN 2,250 MG in SODIUM CHLORIDE 0.9% 250 ML IVPB ONE (17:30)
[2018-07-04 17:56] LABS: ABG Base Excess -9.6 mmol/L; ABG HCO3 14 mmol/L (21-25); ABG PH 7.49 (7.35-7.45); ABG PO2 99 mmHg (83-108); ABG TCO2 14 mmol/L (19-24)
[2018-07-04] MEDS ORDERED: NALOXONE 0.4 MG/ML 1 ML VIAL IV PRN (17:59)
[2018-07-04] MEDS ORDERED: SODIUM CHLORIDE 0.9% 1,000 ML IV SCH (18:00)
--- NOTE | 2018-07-04 18:01 | CT ---
EXAMINATION TYPE: CT ChestAbdPelvis wo con DATE OF EXAM: 07/04/2018 COMPARISON: CT chest 11/18/2017 HISTORY: Shortness of breath, right sided abd pain with fever, vomiting and diarrhea CT DLP: 1636.8 mGycm. Automated Exposure Control for Dose Reduction was Utilized. TECHNIQUE: CT scan of the thorax, abdomen and pelvis is performed without IV contrast. FINDINGS: The lungs are clear of infiltrate. There is no evidence of a pulmonary mass. There is no mediastinal adenopathy. There are no hilar masses. Heart size is normal. There is no pericardial effusion. Stomach appears normal. Liver spleen pancreas gallbladder appear normal. Bile ducts are not dilated. There is no adrenal mass. Kidneys have normal size. There is no hydronephrosis. There is no retroperi toneal adenopathy. There are numerous para-aortic lymph nodes measure less than 1 cm. Bladder is almo st empty. Ureters do not appear dilated. There is a large mass in the right mid abdomen that contains air and fluid and soft tissue density. T his measures approximately 13 x 6 cm and appears to be communicating with the cecal tip and the appen clarisa. The appendix is thickened and measures 1.8 cm. There is fluid level within the mass. There is no evidence of a bowel obstruction. There are surgical clips over the anterior mid abdomen consistent w ith hernia surgery or other surgery. There is no free fluid in the pelvis. There is no inguinal hernia. Thoracic and lumbar spine show sli ght depression in the anterior wedging of the superior endplate of T8 and T7 and T6. There is up to 2 5% loss of height. IMPRESSION: There is a large inflammatory mass in the right mid abdomen that contains air and fluid consistent wi th an abscess. Markedly thickened appendix. This is consistent with appendicitis and rupture. There are mild thoracic compression fractures unchanged compared to 11/18/2017. No acute abnormality s een within the chest.
[2018-07-04] MEDS ORDERED: VANCOMYCIN IV PER PHARMACY 1 EACH MISC MISCELLANE PRN (18:05)
[2018-07-04] MEDS ORDERED: LORazepam 2 MG/ML INJ IV STA (18:56)
--- NOTE | 2018-07-04 19:00 | ED ---
Medical Decision Making - Medical Decision Making blood pressure began to drop. clinical presentation progressing to septic shock. CVC placed under ultrasound guidance. - Lab Data Result diagrams: 07/04/18 16:06 07/04/18 16:06 Lab Results 07/04/18 07/04/18 07/04/18 Range/Units 16:06 16:06 16:06 WBC 11.6 H (3.8-10.6) k/uL RBC 5.07 (4.30-5.90) m/uL Hgb 12.1 L (13.0-17.5) gm/dL Hct 37.5 L (39.0-53.0) % MCV 74.0 L (80.0-100.0) fL MCH 23.9 L (25.0-35.0) pg MCHC 32.3 (31.0-37.0) g/dL RDW 14.3 (11.5-15.5) % Plt Count 479 H (150-450) k/uL Neutrophils % (Manual) 66 % Band Neutrophils % 14 % Lymphocytes % (Manual) 8 % Monocytes % (Manual) 2 % Eosinophils % (Manual) 1 % Metamyelocytes % 3 % Myelocytes % 7 % Neutrophils # (Manual) 9.20 H (1.3-7.7) k/uL Lymphocytes # (Manual) 0.93 L (1.0-4.8) k/uL Monocytes # (Manual) 0.23 (0-1.0) k/uL Eosinophils # (Manual) 0.12 (0-0.7) k/uL Metamyelocytes # (Man) 0.35 H (0) k/uL Myelocytes # (Manual) 0.81 H (0) k/uL Nucleated RBCs 0 (0-0) /100 WBC Manual Slide Review Performed Toxic Granulation Present Toxic Vacuolation Present Large Platelets Present Polychromasia Present Microcytosis Slight PT (9.0-12.0) sec INR (<1.2) Sample Site ABG pH (7.35-7.45) ABG pCO2 (35-45) mmHg ABG pO2 (83-108) mmHg ABG HCO3 (21-25) mmol/L ABG Total CO2 (19-24) mmol/L ABG O2 Saturation (94-97) % ABG Base Excess mmol/L Jonh Test FiO2 % Sodium 132 L (137-145) mmol/L Potassium 3.6 (3.5-5.1) mmol/L Chloride 96 L (98-107) mmol/L Carbon Dioxide 14 L (22-30) mmol/L Anion Gap 22 mmol/L BUN 11 (9-20) mg/dL Creatinine 1.31 H (0.66-1.25) mg/dL Est GFR (CKD-EPI)AfAm 76 (>60 ml/min/1.73 sqM) Est GFR (CKD-EPI)NonAf 66 (>60 ml/min/1.73 sqM) Glucose 190 H (74-99) mg/dL Plasma Lactic Acid Chay (0.7-2.0) mmol/L Calcium 9.0 (8.4-10.2) mg/dL Total Bilirubin 1.5 H (0.2-1.3) mg/dL AST 47 (17-59) U/L ALT 38 (21-72) U/L Alkaline Phosphatase 365 H (38-126) U/L Troponin I (0.000-0.034) ng/mL Total Protein 6.4 (6.3-8.2) g/dL Albumin 2.8 L (3.5-5.0) g/dL Influenza Type A RNA Not Detected (Not Detectd) Influenza Type B (PCR) Not Detected (Not Detectd) 07/04/18 07/04/18 07/04/18 Range/Units 16:06 16:06 16:06 WBC (3.8-10.6) k/uL RBC (4.30-5.90) m/uL Hgb (13.0-17.5) gm/dL Hct (39.0-53.0) % MCV (80.0-100.0) fL MCH (25.0-35.0) pg MCHC (31.0-37.0) g/dL RDW (11.5-15.5) % Plt Count (150-450) k/uL Neutrophils % (Manual) % Band Neutrophils % % Lymphocytes % (Manual) % Monocytes % (Manual) % Eosinophils % (Manual) % Metamyelocytes % % Myelocytes % % Neutrophils # (Manual) (1.3-7.7) k/uL Lymphocytes # (Manual) (1.0-4.8) k/uL Monocytes # (Manual) (0-1.0) k/uL Eosinophils # (Manual) (0-0.7) k/uL Metamyelocytes # (Man) (0) k/uL Myelocytes # (Manual) (0) k/uL Nucleated RBCs (0-0) /100 WBC Manual Slide Review Toxic Granulation Toxic Vacuolation Large Platelets Polychromasia Microcytosis PT 13.5 H (9.0-12.0) sec INR 1.3 H (<1.2) Sample Site ABG pH (7.35-7.45) ABG pCO2 (35-45) mmHg ABG pO2 (83-108) mmHg ABG HCO3 (21-25) mmol/L ABG Total CO2 (19-24) mmol/L ABG O2 Saturation (94-97) % ABG Base Excess mmol/L Jonh Test FiO2 % Sodium (137-145) mmol/L Potassium (3.5-5.1) mmol/L Chloride (98-107) mmol/L Carbon Dioxide (22-30) mmol/L Anion Gap mmol/L BUN (9-20) mg/dL Creatinine (0.66-1.25) mg/dL Est GFR (CKD-EPI)AfAm (>60 ml/min/1.73 sqM) Est GFR (CKD-EPI)NonAf (>60 ml/min/1.73 sqM) Glucose (74-99) mg/dL Plasma Lactic Acid Chay 9.7 H* (0.7-2.0) mmol/L Calcium (8.4-10.2) mg/dL Total Bilirubin (0.2-1.3) mg/dL AST (17-59) U/L ALT (21-72) U/L Alkaline Phosphatase (38-126) U/L Troponin I <0.012 (0.000-0.034) ng/mL Total Protein (6.3-8.2) g/dL Albumin (3.5-5.0) g/dL Influenza Type A RNA (Not Detectd) Influenza Type B (PCR) (Not Detectd) 07/04/18 Range/Units 17:45 WBC (3.8-10.6) k/uL RBC (4.30-5.90) m/uL Hgb (13.0-17.5) gm/dL Hct (39.0-53.0) % MCV (80.0-100.0) fL MCH (25.0-35.0) pg MCHC (31.0-37.0) g/dL RDW (11.5-15.5) % Plt Count (150-450) k/uL Neutrophils % (Manual) % Band Neutrophils % % Lymphocytes % (Manual) % Monocytes % (Manual) % Eosinophils % (Manual) % Metamyelocytes % % Myelocytes % % Neutrophils # (Manual) (1.3-7.7) k/uL Lymphocytes # (Manual) (1.0-4.8) k/uL Monocytes # (Manual) (0-1.0) k/uL Eosinophils # (Manual) (0-0.7) k/uL Metamyelocytes # (Man) (0) k/uL Myelocytes # (Manual) (0) k/uL Nucleated RBCs (0-0) /100 WBC Manual Slide Review Toxic Granulation Toxic Vacuolation Large Platelets Polychromasia Microcytosis PT (9.0-12.0) sec INR (<1.2) Sample Site Right Brachial ABG pH 7.49 H (7.35-7.45) ABG pCO2 18 L* (35-45) mmHg ABG pO2 99 (83-108) mmHg ABG HCO3 14 L (21-25) mmol/L ABG Total CO2 14 L (19-24) mmol/L ABG O2 Saturation 100.0 H (94-97) % ABG Base Excess -9.6 mmol/L Jonh Test Yes FiO2 28 % Sodium (137-145) mmol/L Potassium (3.5-5.1) mmol/L Chloride (98-107) mmol/L Carbon Dioxide (22-30) mmol/L Anion Gap mmol/L BUN (9-20) mg/dL Creatinine (0.66-1.25) mg/dL Est GFR (CKD-EPI)AfAm (>60 ml/min/1.73 sqM) Est GFR (CKD-EPI)NonAf (>60 ml/min/1.73 sqM) Glucose (74-99) mg/dL Plasma Lactic Acid Chay (0.7-2.0) mmol/L Calcium (8.4-10.2) mg/dL Total Bilirubin (0.2-1.3) mg/dL AST (17-59) U/L ALT (21-72) U/L Alkaline Phosphatase (38-126) U/L Troponin I (0.000-0.034) ng/mL Total Protein (6.3-8.2) g/dL Albumin (3.5-5.0) g/dL Influenza Type A RNA (Not Detectd) Influenza Type B (PCR) (Not Detectd) Disposition Clinical Impression: Sepsis, Acidosis, Rupture of appendix, Intra-abdominal abscess Disposition: ADMITTED IP TO THIS HOSP Condition: Critical Procedures - Central Line Placement Left IJ Consent Obtained: verbal consent, emergent situation Patient Placed on Monitor/Pulse Ox: Yes MD Prep: mask, gown, gloves Central Line Prep: Chlorhexidine scrub Local Anesthesia Used: Lidocaine 1%, with Epi Ultrasound Used for Placement: Yes Central Line Lumen Inserted: triple Bloods Obtained for Lab: No Central Line Position: good blood return, all ports aspirated, flushed, capped, sutured in place with 3-0 nylon Dressing Applied: Tegaderm Post Procedure X-Ray: tip of catheter in good position Patient Tolerated Procedure: well Complications: none - Sepsis Sepsis Focused Exam #1 Time Sepsis Criteria Met: 06:30
--- NOTE | 2018-07-04 19:14 | XR ---
EXAMINATION TYPE: XR chest 1V confirm line [facility] DATE OF EXAM: 07/04/2018 COMPARISON: Today HISTORY: Check line placement TECHNIQUE: Single frontal view of the chest is obtained. FINDINGS: There is left jugular catheter with the tip in the superior vena cava. There is no pneumot horax. Lungs are clear of consolidation. There is no heart failure. There is no pleural effusion. IMPRESSION: Catheter appears in good position.
[2018-07-04 19:43] LABS: Glucose,Whole Blood 198 mg/dL (75-99)
[2018-07-04] MEDS ORDERED: LIDOCAINE URO-JET JELLY 2% 5 ML KIT URETHRAL ONE (20:30)
[2018-07-04] MEDS ORDERED: Potassium Replacement Protocol 1 EACH MISC MISCELLANE PRN (20:31)
[2018-07-04] MEDS ORDERED: SODIUM BICARB 8.4% 50 ML SYR (1 MEQ/ML) IV ONE (21:04)
[2018-07-04] MEDS: DEXTROSE 5% IN WATER 1,000 ML with SODIUM BICARB (1 MEQ/ML) 150 ML IV SCH (21:36)
[2018-07-04] MEDS: POTASSIUM CHLORIDE 10 MEQ in WATER FOR INJECTION 1 100ML.BAG IVPB SCH ×2 (21:37→22:55)
[2018-07-04] MEDS: SODIUM CHLORIDE 0.9% 1,000 ML IV SCH (21:38)
[2018-07-04 23:16] LABS: Appearance,Urine Turbid (Clear); Bacteria,Urine Moderate /hpf; Bilirubin,Urine Negative (Negative); Blood,Urine Moderate (Negative); Color,Urine Yellow; Glucose,Urine (UA) 2+ (Negative); Granular Casts,Urine 949 /lpf (0); Ketones,Urine Trace (Negative); Leukocyte Esterase,Urine Trace (Negative); Mucus,Urine Rare /hpf; Nitrite,Urine Negative (Negative); PH, Urine 5.5 (5.0-8.0); Protein,Urine 2+ (Negative); RBC,Urine 11 /hpf (0-5); Specific Gravity,Urine 1.021 (1.001-1.035); Squamous Epithelial Cell,Urine 2 /hpf (0-4); Urobilinogen,Urine <2.0 mg/dL (<2.0); WBC,Urine 28 /hpf (0-5)
[2018-07-05 00:24] LABS: Glucose,Whole Blood 229 mg/dL (75-99)
[2018-07-05] MEDS ORDERED: ACETAMINOPHEN IV (For NPO) 1,000 MG in EMPTY BAG 1 BAG IVPB PRN (00:29)
[2018-07-05] MEDS: INSULIN ASPART (NovoLOG) 100 UNIT/ML VIAL SQ SCH ×4 (00:35→18:36)
[2018-07-05 05:17] LABS: Glucose,Whole Blood 251 mg/dL (75-99)
[2018-07-05 05:57] LABS: Calcium 7.5 mg/dL (8.4-10.2); Phosphorus 4.6 mg/dL (2.5-4.5); Potassium 3.6 mmol/L (3.5-5.1)
[2018-07-05 05:58] LABS: HCT 30.1 % (39.0-53.0); Hypochromasia Slight; MCH 24.6 pg (25.0-35.0); MCV 74.4 fL (80.0-100.0); Microcytosis Slight; Platelet Count 341 k/uL (150-450); RBC 4.04 m/uL (4.30-5.90); RDW 14.4 % (11.5-15.5); WBC 36.8 k/uL (3.8-10.6)
[2018-07-05 06:02] LABS: INR 1.3 (<1.2); Partial Thromboplastin Time 25.7 sec (22.0-30.0); Prothrombin Time 13.6 sec (9.0-12.0)
[2018-07-05 06:19] LABS: Magnesium 0.9 mg/dL (1.6-2.3)
[2018-07-05] MEDS ORDERED: Potassium Replacement Protocol 1 EACH MISC MISCELLANE PRN (06:21)
[2018-07-05] MEDS ORDERED: Magnesium Replacement Protocol 1 EACH MISC MISCELLANE PRN (06:21)
[2018-07-05 06:22] LABS: HGB 9.9 gm/dL (13.0-17.5)
[2018-07-05] MEDS: MAGNESIUM SULFATE-D5W PMX 1 GM in DEXTROSE/WATER 1 100ML.BAG IVPB SCH ×5 (06:30→22:49)
[2018-07-05] MEDS: VANCOMYCIN 2,000 MG in SODIUM CHLORIDE 0.9% 500 ML 500 ML IVPB SCH ×2 (06:30→18:36)
[2018-07-05] MEDS: POTASSIUM CHLORIDE 10 MEQ in WATER FOR INJECTION 1 100ML.BAG IVPB SCH ×2 (06:30→08:01)
[2018-07-05 07:15] LABS: Band Neutrophils % 20 %; Lymphocytes # (M) 0.74 k/uL (1.0-4.8); Metamyelocytes # (M) 0.74 k/uL (0); Metamyelocytes % 2 %; Monocytes # (M) 2.21 k/uL (0-1.0); Neutrophils % (M) 72 %; Nucleated Red Blood Cells 0 /100 WBC (0-0); Total Cells Counted 200
[2018-07-05 07:16] LABS: Toxic Granulation Present
[2018-07-05 07:18] LABS: Polychromasia Present; Toxic Vacuolation Present
[2018-07-05 07:29] LABS: ABG PCO2 18 mmHg (35-45)
--- NOTE | 2018-07-05 07:36 | XR ---
EXAMINATION TYPE: XR chest 1V portable DATE OF EXAM: 07/05/2018 CLINICAL HISTORY: Difficulty breathing progress study. TECHNIQUE: Single AP portable upright view of the chest is obtained. COMPARISON: Chest x-ray from one day earlier and older studies. CT from one day earlier. FINDINGS: There is stable left internal jugular central venous catheter. Lungs show patchy bibasilar medial atelectasis. No pleural effusion or pneumothorax is seen bilaterally. Cardiac silhouette size remains enlarged. Osseous structures are intact. IMPRESSION: Overall stable findings, cardiomegaly with patchy medial bibasilar linear atelectasis.
[2018-07-05] MEDS: PANTOPRAZOLE 40 MG/10 ML VIAL IV SCH (09:25)
[2018-07-05] MEDS: PIPERACILLIN-TAZOBACTAM 3.375 GM in SODIUM CHLORIDE 0.9% 100 ML IVPB SCH ×3 (09:25→23:04)
--- NOTE | 2018-07-05 09:42 | P.CONS ---
History of Present Illness - Reason for Consult Consult date: 07/05/18 Ruptured appendix - History of Present Illness This is a 43-year-old male who gives history of having an uncomfor table feeling in his abdomen but no real pain for the past week as well as fever and chills and diarrhea. Pain was in the right middle abdomen. He states he was feeling lightheaded ended up passing out hitting his face on the ground and his son made him come into the hospital for evaluation. Patient was found to have a temperature of 101.6, tachycardia, blood pressure was stable at 139/55, pulse ox 96 on 2 L. White count initially 11.6 and now at 36.8, hemoglobin 9.9, Pletal count 341. Creatinine 1.31 with repeat of 1.5. Magnesium 0.9, CO2 14, lactic acid 9.7. Influenza testing was negative. Total bilirubin 1.5, alkaline phosphatase 365, albumin 2.8. Urinalysis showed some blood and white cells. Blood cultures status received as well as urine culture. CAT scan of the chest abdomen and pelvis showed appendix with rupture. Chest x-ray patchy medial basilar atelectasis and or developing pneumonia. Patient was given a dose of cefepime and vancomycin, continued on vancomycin and admitted into the intensive care unit. He has been on sodium bicarb drip, Sorensen catheter has been placed. He has not required vasopressors. Surgery is scheduled for today. Patient is a [id number] diabetic and he states his last physical when A1c was 7.2. Review of Systems All systems: negative Constitutional: Reports chills, Reports fatigue, Reports fever, Reports malaise, Reports poor appetite, Reports weakness Eyes: denies blurred vision, denies pain Ears, nose, mouth and throat: Denies dysphagia, Denies headache, Denies mouth pain, Denies nasal congestion, Denies nasal discharge, Denies sore throat Cardiovascular: Reports dyspnea on exertion, Reports lightheadedness, Reports syncope, Denies chest pain, Denies edema, Denies shortness of breath Respiratory: Denies cough, Denies cough with sputum, Denies dyspnea, Denies excessive sputum, Denies hemoptysis, Denies home oxygen Gastrointestinal: Reports abdominal pain, Reports diarrhea, Reports loss of appetite, Denies nausea, Denies vomiting Genitourinary: Denies discharge, Denies dysuria, Denies flank pain, Denies urinary frequency, Denies urinary retention Musculoskeletal: Reports muscle weakness, Denies myalgias Integumentary: Denies pruritus, Denies rash, Denies wounds Neurological: Denies aphasia, Denies change in mentation, Denies confusion, Denies numbness, Denies seizures, Denies weakness Psychiatric: Denies anxiety, Denies depression Endocrine: Denies fatigue, Denies weight change Past Medical History Past Medical History: Diabetes Mellitus, Hypertension, Seizure Disorder, Supraventricular Tachycardia (SVT) Additional Past Medical History / Comment(s): last seizure 2.5yrs ago History of Any Multi-Drug Resistant Organisms: None Reported Past Surgical History: Hernia Repair, Orthopedic Surgery, Tonsillectomy Additional Past Surgical History / Comment(s): right knee sx, upper palate reconstruction for sleep apnea Past Anesthesia/Blood Transfusion Reactions: No Reported Reaction Past Psychological History: Bipolar, Depression, Schizophrenia Additional Psychological History / Comment(s): no current thoughts of harming self. Smoking Status: Former smoker Past Alcohol Use History: None Reported Additional Past Alcohol Use History / Comment(s): Patient was a smoker one pack per day of cigarettes for 5 years and quit in 1992. He does smoke marijuana occasionally. He denies any illicit drug use or alcohol use. He lives with his son and a roommate and recently moved to [facility] 4 years ago. He is on disability due to mental health illness with bipolar disorder. He worked in the past in [employer]. He denies any travel, no service. Past Drug Use History: Marijuana Additional Drug Use History / Comment(s): Current marijuana smoker. - Past Family History Mother Family Medical History: Diabetes Mellitus Additional Family Medical History / Comment(s): CHF Medications and Allergies Home Medications Medication Instructions Recorded Confirmed Type Insulin Glargine [Lantus] 50 units SQ HS 03/23/15 07/04/18 History Atorvastatin Calcium [Lipitor] 20 mg PO HS 09/14/16 07/04/18 History DULoxetine HCL [Cymbalta] 60 mg PO DAILY 09/14/16 07/04/18 History metFORMIN HCL [Glucophage] 850 mg PO TID 09/14/16 07/04/18 History Atenolol 25 mg PO DAILY 07/04/18 07/04/18 History DULoxetine HCL [Cymbalta] 30 mg PO DAILY 07/04/18 07/04/18 History Divalproex [Depakote] 250 mg PO HS 07/04/18 07/04/18 History Lisinopril [Zestril] 10 mg PO DAILY 07/04/18 07/04/18 History Vortioxetine Hydrobromide 10 mg PO DAILY 07/04/18 07/04/18 History [Trintellix] Allergies Allergy/AdvReac Type Severity Reaction Status Date / Time carbamazepine [From Tegretol] Allergy Severe Anaphylaxis Verified 07/04/18 17:02 lithium [[place]] Allergy Severe Anaphylaxis Verified 07/04/18 17:02 shellfish derived Allergy Severe Anaphylaxis Verified 07/04/18 17:02 aspartame Allergy Unknown Verified 07/04/18 17:02 citalopram hydrobromide AdvReac Intermediate Nausea & Verified 07/04/18 17:02 [From Celexa] Vomiting Physical Exam Vitals: Vital Signs Temp Pulse Resp BP Pulse Ox 07/05/18 08:00 98.5 F 90 26 H 118/75 95 07/05/18 07:00 94 25 H 120/74 94 L 07/05/18 06:00 95 31 H 112/72 94 L 07/05/18 05:00 96 29 H 109/75 94 L 07/05/18 04:00 97.8 F 96 29 H 100/73 94 L 07/05/18 03:00 101 H 31 H 101/65 94 L 07/05/18 02:00 110 H 31 H 108/62 93 L 07/05/18 01:00 117 H 46 H 102/51 93 L 07/05/18 00:00 100.9 F H 125 H 31 H 118/70 92 L 07/04/18 23:22 124 H 48 H 91/50 91 L 07/04/18 23:00 124 H 51 H 91/50 94 L 07/04/18 22:00 98.0 F 124 H 44 H 128/60 93 L 07/04/18 21:00 120 H 44 H 120/56 95 07/04/18 20:50 120 H 42 H 120/56 96 07/04/18 20:40 120 H 10 L 120/56 95 07/04/18 20:35 97 07/04/18 20:30 120 H 16 115/69 97 07/04/18 20:20 118 H 33 H 115/69 97 07/04/18 20:10 120 H 29 H 115/69 97 07/04/18 20:00 120 H 30 H 111/45 98 07/04/18 19:50 100.2 F H 117 H 23 111/45 96 07/04/18 19:22 99.3 F 118 H 26 H 117/56 94 L 07/04/18 19:20 118 H 26 H 117/56 91 L 07/04/18 19:10 121 H 39 H 94/82 97 07/04/18 19:00 121 H 31 H 07/04/18 18:50 124 H 43 H 07/04/18 18:40 124 H 16 101/61 07/04/18 18:36 125 H 20 101/61 95 07/04/18 18:30 124 H 24 80/40 94 L 07/04/18 18:20 125 H 31 H 84/67 99 07/04/18 18:10 125 H 30 H 76/43 99 07/04/18 18:00 128 H 31 H 95/61 98 07/04/18 17:50 129 H 32 H 95/61 98 07/04/18 17:40 135 H 17 106/62 97 07/04/18 17:30 141 H 32 H 106/62 98 07/04/18 17:25 135 H 20 100 07/04/18 17:20 110/61 07/04/18 17:10 156 H 30 H 110/61 07/04/18 17:00 158 H 36 H 118/79 96 07/04/18 16:50 158 H 26 H 118/79 96 07/04/18 16:40 161 H 16 123/70 96 07/04/18 16:30 165 H 18 125/66 95 07/04/18 16:20 170 H 20 125/66 96 07/04/18 16:10 174 H 25 H 147/55 98 07/04/18 16:00 176 H 28 H 105/62 94 L 07/04/18 15:50 176 H 14 139/55 96 07/04/18 15:48 101.6 F H 175 H 20 139/55 96 07/04/18 15:43 97 Intake and Output 07/04/18 07/05/18 07/05/18 22:59 06:59 14:59 Intake Total 480 2300 550 Output Total 30 700 425 Balance 450 1600 125 Intake: IV 480 2300 550 ACETAMINOPHEN IV (For NPO 100 ) 1,000 mg In Empty Bag 1 bag @ 400 mls/hr IVPB Q6HR PRN Rx#:[id number] Dextrose 5% in Water 1, 200 800 200 000 ml @ 100 mls/hr IV . [id number] BRANDIE with Sodium Bicarb (1 Meq/ml) 150 ml Rx#:[id number] Magnesium Sulfate-D5w Pmx 100 100 1 gm In Dextrose/Water 1 100ml.bag @ 100 mls/hr IVPB Q1H BRANDIE Rx#: [id number] Potassium Chloride 10 meq 100 200 100 In Water For Injection 1 100ml.bag @ 100 mls/hr IVPB Q1H [facility] Rx#: [id number] Sodium Chloride 0.9% 1, 180 600 150 000 ml @ 75 mls/hr IV . [id number] BRANDIE Rx#:[id number] Vancomycin 2,000 mg In 500 Sodium Chloride 0.9% 500 ml 500 ml @ 167 mls/hr IVPB Q12H [facility] Rx#: [id number] Output: Urine 30 700 425 Other: Voiding Method Indwelling Catheter Indwelling Catheter Weight 139.752 kg 140.4 kg Gen: This is a morbidly obese 43-year-old male. He is resting in the ICU bed and appears to be comfortable and in no acute distress. HEENT: Head is atraumatic, normocephalic. Pupils equal, round. Sclerae is anicteric. Conjunctiva pink. Mucous members of the mouth are somewhat dry. Dentition is in very poor order. No thrush noted. There are white patches on the tonsillar area. NECK: Supple. No JVD. No lymphadenopathy. No thyromegaly. LUNGS: Diminished breath sounds. No wheezes or rhonchi. No intercostal r etractions. HEART: Regular rate and rhythm. No murmur. ABDOMEN: Soft. Morbidly obese. Bowel sounds are present. No masses. Right sided tenderness. Sorensen catheter draining clear nithin urine. EXTREMITIES: No pedal edema. No calf tenderness. Dorsalis pedis +2 bilaterally. NEUROLOGICAL: Patient is awake, alert and oriented x3. Cranial nerves 2 through 12 are grossly intact. Results Results: Laboratory Results WBC 36.8 k/uL (3.8-10.6) H 07/05/18 05:05 RBC 4.04 m/uL (4.30-5.90) L 07/05/18 05:05 Hgb 9.9 gm/dL (13.0-17.5) L D 07/05/18 05:05 Hct 30.1 % (39.0-53.0) L 07/05/18 05:05 MCV 74.4 fL (80.0-100.0) L 07/05/18 05:05 MCH 24.6 pg (25.0-35.0) L 07/05/18 05:05 MCHC 33.0 g/dL (31.0-37.0) 07/05/18 05:05 RDW 14.4 % (11.5-15.5) 07/05/18 05:05 Plt Count 341 k/uL (150-450) 07/05/18 05:05 Neutrophils % (Manual) 72 % 07/05/18 05:05 Band Neutrophils % 20 % 07/05/18 05:05 Lymphocytes % (Manual) 2 % 07/05/18 05:05 Monocytes % (Manual) 6 % 07/05/18 05:05 Eosinophils % (Manual) 1 % 07/04/18 16:06 Metamyelocytes % 2 % 07/05/18 05:05 Myelocytes % 7 % 07/04/18 16:06 Neutrophils # (Manual) 33.80 k/uL (1.3-7.7) H 07/05/18 05:05 Lymphocytes # (Manual) 0.74 k/uL (1.0-4.8) L 07/05/18 05:05 Monocytes # (Manual) 2.21 k/uL (0-1.0) H 07/05/18 05:05 Eosinophils # (Manual) 0.12 k/uL (0-0.7) 07/04/18 16:06 Metamyelocytes # (Man) 0.74 k/uL (0) H 07/05/18 05:05 Myelocytes # (Manual) 0.81 k/uL (0) H 07/04/18 16:06 Nucleated RBCs 0 /100 WBC (0-0) 07/05/18 05:05 Manual Slide Review Performed 07/04/18 16:06 Toxic Granulation Present 07/05/18 05:05 Toxic Vacuolation Present 07/05/18 05:05 Large Platelets Present 07/04/18 16:06 Polychromasia Present 07/05/18 05:05 Hypochromasia Slight 07/05/18 05:05 Microcytosis Slight 07/05/18 05:05 PT 13.6 sec (9.0-12.0) H 07/05/18 05:05 INR 1.3 (<1.2) H 07/05/18 05:05 APTT 25.7 sec (22.0-30.0) 07/05/18 05:05 Sample Site Right Brachial 07/04/18 17:45 ABG pH 7.49 (7.35-7.45) H 07/04/18 17:45 ABG pCO2 18 mmHg (35-45) L* 07/04/18 17:45 ABG pO2 99 mmHg (83-108) 07/04/18 17:45 ABG HCO3 14 mmol/L (21-25) L 07/04/18 17:45 ABG Total CO2 14 mmol/L (19-24) L 07/04/18 17:45 ABG O2 Saturation 100.0 % (94-97) H 07/04/18 17:45 ABG Base Excess -9.6 mmol/L 07/04/18 17:45 Jonh Test Yes 07/04/18 17:45 FiO2 28 % 07/04/18 17:45 Sodium 132 mmol/L (137-145) L 07/05/18 05:05 Potassium 3.6 mmol/L (3.5-5.1) 07/05/18 05:05 Chloride 99 mmol/L (98-107) 07/05/18 05:05 Carbon Dioxide 22 mmol/L (22-30) 07/05/18 05:05 Anion Gap 11 mmol/L 07/05/18 05:05 BUN 16 mg/dL (9-20) 07/05/18 05:05 Creatinine 1.50 mg/dL (0.66-1.25) H 07/05/18 05:05 Est GFR (CKD-EPI)AfAm 64 (>60 ml/min/1.73 sqM) 07/05/18 05:05 Est GFR (CKD-EPI)NonAf 56 (>60 ml/min/1.73 sqM) 07/05/18 05:05 Glucose 234 mg/dL (74-99) H 07/05/18 05:05 POC Glucose (mg/dL) 251 mg/dL (75-99) H 07/05/18 05:15 POC Glu Compliance Paralegal ID Jamilah Wood 07/05/18 05:15 Lactic Ac Sepsis Rflx Y 07/04/18 17:01 Plasma Lactic Acid Chay 2.4 mmol/L (0.7-2.0) H* 07/05/18 07:20 Calcium 7.5 mg/dL (8.4-10.2) L 07/05/18 05:05 Phosphorus 4.6 mg/dL (2.5-4.5) H 07/05/18 05:05 Magnesium 0.9 mg/dL (1.6-2.3) L* 07/05/18 05:05 Total Bilirubin 1.5 mg/dL (0.2-1.3) H 07/04/18 16:06 AST 47 U/L (17-59) 07/04/18 16:06 ALT 38 U/L (21-72) 07/04/18 16:06 Alkaline Phosphatase 365 U/L (38-126) H 07/04/18 16:06 Troponin I <0.012 ng/mL (0.000-0.034) 07/04/18 16:06 Total Protein 6.4 g/dL (6.3-8.2) 07/04/18 16:06 Albumin 2.8 g/dL (3.5-5.0) L 07/04/18 16:06 Urine Color Yellow 07/04/18 22:20 Urine Appearance Turbid (Clear) 07/04/18 22:20 Urine pH 5.5 (5.0-8.0) 07/04/18 22:20 Ur Specific [place] 1.021 (1.001-1.035) 07/04/18 22:20 Urine Protein 2+ (Negative) H 07/04/18 22:20 Urine Glucose (UA) 2+ (Negative) H 07/04/18 22:20 Urine Ketones Trace (Negative) H 07/04/18 22:20 Urine Blood Moderate (Negative) H 07/04/18 22:20 Urine Nitrite Negative (Negative) 07/04/18 22:20 Urine Bilirubin Negative (Negative) 07/04/18 22:20 Urine Urobilinogen <2.0 mg/dL (<2.0) 07/04/18 22:20 Ur Leukocyte Esterase Trace (Negative) H 07/04/18 22:20 Urine RBC 11 /hpf (0-5) H 07/04/18 22:20 Urine WBC 28 /hpf (0-5) H 07/04/18 22:20 Urine WBC Clumps Many /hpf (None) H 07/04/18 22:20 Ur Squamous Epith Cells 2 /hpf (0-4) 07/04/18 22:20 Urine Bacteria Moderate /hpf (None) H 07/04/18 22:20 Granular Casts 949 /lpf (0) 07/04/18 22:20 Urine Mucus Rare /hpf (None) H 07/04/18 22:20 Influenza Type A RNA Not Detected (Not Detectd) 07/04/18 16:06 Influenza Type B (PCR) Not Detected (Not Detectd) 07/04/18 16:06 CBC & Chem 7: 07/05/18 05:05 07/05/18 05:05 Labs: Abnormal Lab Results - Last 24 Hours (Table) 07/04/18 07/04/18 07/04/18 Range/Units 16:06 16:06 16:06 WBC 11.6 H (3.8-10.6) k/uL RBC (4.30-5.90) m/uL Hgb 12.1 L (13.0-17.5) gm/dL Hct 37.5 L (39.0-53.0) % MCV 74.0 L (80.0-100.0) fL MCH 23.9 L (25.0-35.0) pg Plt Count 479 H (150-450) k/uL Neutrophils # (Manual) 9.20 H (1.3-7.7) k/uL Lymphocytes # (Manual) 0.93 L (1.0-4.8) k/uL Monocytes # (Manual) (0-1.0) k/uL Metamyelocytes # (Man) 0.35 H (0) k/uL Myelocytes # (Manual) 0.81 H (0) k/uL PT (9.0-12.0) sec INR (<1.2) ABG pH (7.35-7.45) ABG pCO2 (35-45) mmHg ABG HCO3 (21-25) mmol/L ABG Total CO2 (19-24) mmol/L ABG O2 Saturation (94-97) % Sodium 132 L (137-145) mmol/L Chloride 96 L (98-107) mmol/L Carbon Dioxide 14 L (22-30) mmol/L Creatinine 1.31 H (0.66-1.25) mg/dL Glucose 190 H (74-99) mg/dL POC Glucose (mg/dL) (75-99) mg/dL Plasma Lactic Acid Chay 9.7 H* (0.7-2.0) mmol/L Calcium (8.4-10.2) mg/dL Phosphorus (2.5-4.5) mg/dL Magnesium (1.6-2.3) mg/dL Total Bilirubin 1.5 H (0.2-1.3) mg/dL Alkaline Phosphatase 365 H (38-126) U/L Albumin 2.8 L (3.5-5.0) g/dL Urine Protein (Negative) Urine Glucose (UA) (Negative) Urine Ketones (Negative) Urine Blood (Negative) Ur Leukocyte Esterase (Negative) Urine RBC (0-5) /hpf Urine WBC (0-5) /hpf Urine WBC Clumps (None) /hpf Urine Bacteria (None) /hpf Urine Mucus (None) /hpf 07/04/18 07/04/18 07/04/18 Range/Units 16:06 17:45 19:41 WBC (3.8-10.6) k/uL RBC (4.30-5.90) m/uL Hgb (13.0-17.5) gm/dL Hct (39.0-53.0) % MCV (80.0-100.0) fL MCH (25.0-35.0) pg Plt Count (150-450) k/uL Neutrophils # (Manual) (1.3-7.7) k/uL Lymphocytes # (Manual) (1.0-4.8) k/uL Monocytes # (Manual) (0-1.0) k/uL Metamyelocytes # (Man) (0) k/uL Myelocytes # (Manual) (0) k/uL PT 13.5 H (9.0-12.0) sec INR 1.3 H (<1.2) ABG pH 7.49 H (7.35-7.45) ABG pCO2 18 L* (35-45) mmHg ABG HCO3 14 L (21-25) mmol/L ABG Total CO2 14 L (19-24) mmol/L ABG O2 Saturation 100.0 H (94-97) % Sodium (137-145) mmol/L Chloride (98-107) mmol/L Carbon Dioxide (22-30) mmol/L Creatinine (0.66-1.25) mg/dL Glucose (74-99) mg/dL POC Glucose (mg/dL) 198 H (75-99) mg/dL Plasma Lactic Acid Chay (0.7-2.0) mmol/L Calcium (8.4-10.2) mg/dL Phosphorus (2.5-4.5) mg/dL Magnesium (1.6-2.3) mg/dL Total Bilirubin (0.2-1.3) mg/dL Alkaline Phosphatase (38-126) U/L Albumin (3.5-5.0) g/dL Urine Protein (Negative) Urine Glucose (UA) (Negative) Urine Ketones (Negative) Urine Blood (Negative) Ur Leukocyte Esterase (Negative) Urine RBC (0-5) /hpf Urine WBC (0-5) /hpf Urine WBC Clumps (None) /hpf Urine Bacteria (None) /hpf Urine Mucus (None) /hpf 07/04/18 07/04/18 07/05/18 Range/Units 20:45 22:20 00:22 WBC (3.8-10.6) k/uL RBC (4.30-5.90) m/uL Hgb (13.0-17.5) gm/dL Hct (39.0-53.0) % MCV (80.0-100.0) fL MCH (25.0-35.0) pg Plt Count (150-450) k/uL Neutrophils # (Manual) (1.3-7.7) k/uL Lymphocytes # (Manual) (1.0-4.8) k/uL Monocytes # (Manual) (0-1.0) k/uL Metamyelocytes # (Man) (0) k/uL Myelocytes # (Manual) (0) k/uL PT (9.0-12.0) sec INR (<1.2) ABG pH (7.35-7.45) ABG pCO2 (35-45) mmHg ABG HCO3 (21-25) mmol/L ABG Total CO2 (19-24) mmol/L ABG O2 Saturation (94-97) % Sodium (137-145) mmol/L Chloride (98-107) mmol/L Carbon Dioxide (22-30) mmol/L Creatinine (0.66-1.25) mg/dL Glucose (74-99) mg/dL POC Glucose (mg/dL) 229 H (75-99) mg/dL Plasma Lactic Acid Chay 3.9 H* (0.7-2.0) mmol/L Calcium (8.4-10.2) mg/dL Phosphorus (2.5-4.5) mg/dL Magnesium (1.6-2.3) mg/dL Total Bilirubin (0.2-1.3) mg/dL Alkaline Phosphatase (38-126) U/L Albumin (3.5-5.0) g/dL Urine Protein 2+ H (Negative) Urine Glucose (UA) 2+ H (Negative) Urine Ketones Trace H (Negative) Urine Blood Moderate H (Negative) Ur Leukocyte Esterase Trace H (Negative) Urine RBC 11 H (0-5) /hpf Urine WBC 28 H (0-5) /hpf Urine WBC Clumps Many H (None) /hpf Urine Bacteria Moderate H (None) /hpf Urine Mucus Rare H (None) /hpf 07/05/18 07/05/18 07/05/18 Range/Units 05:05 05:05 05:05 WBC 36.8 H (3.8-10.6) k/uL RBC 4.04 L (4.30-5.90) m/uL Hgb 9.9 L D (13.0-17.5) gm/dL Hct 30.1 L (39.0-53.0) % MCV 74.4 L (80.0-100.0) fL MCH 24.6 L (25.0-35.0) pg Plt Count (150-450) k/uL Neutrophils # (Manual) 33.80 H (1.3-7.7) k/uL Lymphocytes # (Manual) 0.74 L (1.0-4.8) k/uL Monocytes # (Manual) 2.21 H (0-1.0) k/uL Metamyelocytes # (Man) 0.74 H (0) k/uL Myelocytes # (Manual) (0) k/uL PT 13.6 H (9.0-12.0) sec INR 1.3 H (<1.2) ABG pH (7.35-7.45) ABG pCO2 (35-45) mmHg ABG HCO3 (21-25) mmol/L ABG Total CO2 (19-24) mmol/L ABG O2 Saturation (94-97) % Sodium 132 L (137-145) mmol/L Chloride (98-107) mmol/L Carbon Dioxide (22-30) mmol/L Creatinine 1.50 H (0.66-1.25) mg/dL Glucose 234 H (74-99) mg/dL POC Glucose (mg/dL) (75-99) mg/dL Plasma Lactic Acid Chay (0.7-2.0) mmol/L Calcium 7.5 L (8.4-10.2) mg/dL Phosphorus 4.6 H (2.5-4.5) mg/dL Magnesium 0.9 L* (1.6-2.3) mg/dL Total Bilirubin (0.2-1.3) mg/dL Alkaline Phosphatase (38-126) U/L Albumin (3.5-5.0) g/dL Urine Protein (Negative) Urine Glucose (UA) (Negative) Urine Ketones (Negative) Urine Blood (Negative) Ur Leukocyte Esterase (Negative) Urine RBC (0-5) /hpf Urine WBC (0-5) /hpf Urine WBC Clumps (None) /hpf Urine Bacteria (None) /hpf Urine Mucus (None) /hpf 07/05/18 07/05/18 Range/Units 05:15 07:20 WBC (3.8-10.6) k/uL RBC (4.30-5.90) m/uL Hgb (13.0-17.5) gm/dL Hct (39.0-53.0) % MCV (80.0-100.0) fL MCH (25.0-35.0) pg Plt Count (150-450) k/uL Neutrophils # (Manual) (1.3-7.7) k/uL Lymphocytes # (Manual) (1.0-4.8) k/uL Monocytes # (Manual) (0-1.0) k/uL Metamyelocytes # (Man) (0) k/uL Myelocytes # (Manual) (0) k/uL PT (9.0-12.0) sec INR (<1.2) ABG pH (7.35-7.45) ABG pCO2 (35-45) mmHg ABG HCO3 (21-25) mmol/L ABG Total CO2 (19-24) mmol/L ABG O2 Saturation (94-97) % Sodium (137-145) mmol/L Chloride (98-107) mmol/L Carbon Dioxide (22-30) mmol/L Creatinine (0.66-1.25) mg/dL Glucose (74-99) mg/dL POC Glucose (mg/dL) 251 H (75-99) mg/dL Plasma Lactic Acid Chay 2.4 H* (0.7-2.0) mmol/L Calcium (8.4-10.2) mg/dL Phosphorus (2.5-4.5) mg/dL Magnesium (1.6-2.3) mg/dL Total Bilirubin (0.2-1.3) mg/dL Alkaline Phosphatase (38-126) U/L Albumin (3.5-5.0) g/dL Urine Protein (Negative) Urine Glucose (UA) (Negative) Urine Ketones (Negative) Urine Blood (Negative) Ur Leukocyte Esterase (Negative) Urine RBC (0-5) /hpf Urine WBC (0-5) /hpf Urine WBC Clumps (None) /hpf Urine Bacteria (None) /hpf Urine Mucus (None) /hpf Microbiology - Last 24 Hours (Table) 07/04/18 18:30 Urine Culture - Preliminary Urine,Catheterized Assessment and Plan Plan: This is a 43-year-old male presented after a syncopal episode at home presented with ruptured appendix, peritonitis, metabolic acidosis, lactic acidosis, sepsis and acute kidney injury. The patient is currently on Vanco and Zosyn will be added. Surgery is scheduled for this afternoon. Blood culture status received. Continue supportive care. Further recommendations as patient progresses. The above dictated assessment and findings were discussed with Dr. Esparza. The impression and plan of care have been directed as dictated. Nelli Mckinney nurse practitioner acting as scribe for Dr. sEparza.
--- NOTE | 2018-07-05 09:47 | P.GSHP ---
History of Present Illness H&P Date: 07/05/18 Chief Complaint: Abdominal pain This a 43-year-old male who has a 10 day history of abdominal pain. Patient states that he felt lightheaded yesterday and fell in his bathroom. Patient presented to the emergency room. He is workup found. An evidence of septic shock with tachycardia and fever of 102. Patient was fluid resuscitated in the emergency room and then in the ICU. Patient states that he has had abdominal pain for at least 10 days on the right side. His CAT scan performed in the emergency room shows evidence of perforated appendicitis with abscess. Patient states he feels better after receiving fluid hydration overnight. His tachycardia has improved. Past Medical History Past Medical History: Diabetes Mellitus, Hypertension, Seizure Disorder, Supraventricular Tachycardia (SVT) Additional Past Medical History / Comment(s): last seizure 2.5yrs ago History of Any Multi-Drug Resistant Organisms: None Reported Past Surgical History: Hernia Repair, Orthopedic Surgery, Tonsillectomy Additional Past Surgical History / Comment(s): right knee sx, upper palate reconstruction for sleep apnea Past Anesthesia/Blood Transfusion Reactions: No Reported Reaction Past Psychological History: Bipolar, Depression, Schizophrenia Additional Psychological History / Comment(s): no current thoughts of harming self. Smoking Status: Former smoker Past Alcohol Use History: None Reported Additional Past Alcohol Use History / Comment(s): Patient was a smoker one pack per day of cigarettes for 5 years and quit in 1992. He does smoke marijuana occasionally. He denies any illicit drug use or alcohol use. He lives with his son and a roommate and recently moved to [facility] 4 years ago. He is on disability due to mental health illness with bipolar disorder. He worked in the past in [employer]. He denies any travel, no service. Past Drug Use History: Marijuana Additional Drug Use History / Comment(s): Current marijuana smoker. - Past Family History Mother Family Medical History: Diabetes Mellitus Additional Family Medical History / Comment(s): CHF Medications and Allergies Home Medications Medication Instructions Recorded Confirmed Type Insulin Glargine [Lantus] 50 units SQ HS 03/23/15 07/04/18 History Atorvastatin Calcium [Lipitor] 20 mg PO HS 09/14/16 07/04/18 History DULoxetine HCL [Cymbalta] 60 mg PO DAILY 09/14/16 07/04/18 History metFORMIN HCL [Glucophage] 850 mg PO TID 09/14/16 07/04/18 History Atenolol 25 mg PO DAILY 07/04/18 07/04/18 History DULoxetine HCL [Cymbalta] 30 mg PO DAILY 07/04/18 07/04/18 History Divalproex [Depakote] 250 mg PO HS 07/04/18 07/04/18 History Lisinopril [Zestril] 10 mg PO DAILY 07/04/18 07/04/18 History Vortioxetine Hydrobromide 10 mg PO DAILY 07/04/18 07/04/18 History [Trintellix] Allergies Allergy/AdvReac Type Severity Reaction Status Date / Time carbamazepine [From Tegretol] Allergy Severe Anaphylaxis Verified 07/04/18 17:02 lithium [[place]] Allergy Severe Anaphylaxis Verified 07/04/18 17:02 shellfish derived Allergy Severe Anaphylaxis Verified 07/04/18 17:02 aspartame Allergy Unknown Verified 07/04/18 17:02 citalopram hydrobromide AdvReac Intermediate Nausea & Verified 07/04/18 17:02 [From Celexa] Vomiting Surgical - Exam Vital Signs Pulse Ox 97 07/04/18 15:43 Morbid obesity, BMI 42 - General well developed, moderate distress - Eyes PERRL - ENT normal pinna - Neck no masses - Respiratory normal expansion - Cardiovascular Rhythm: regular - Abdomen Patient's abdomen is obese. The abdomen is soft. There is some tenderness on the right side. There is significant tenderness with deep palpation. Abdomen: soft Results - Labs 07/05/18 05:05 07/05/18 05:05 Abnormal Lab Results - Last 24 Hours (Table) 07/04/18 07/04/18 07/04/18 Range/Units 16:06 16:06 16:06 WBC 11.6 H (3.8-10.6) k/uL RBC (4.30-5.90) m/uL Hgb 12.1 L (13.0-17.5) gm/dL Hct 37.5 L (39.0-53.0) % MCV 74.0 L (80.0-100.0) fL MCH 23.9 L (25.0-35.0) pg Plt Count 479 H (150-450) k/uL Neutrophils # (Manual) 9.20 H (1.3-7.7) k/uL Lymphocytes # (Manual) 0.93 L (1.0-4.8) k/uL Monocytes # (Manual) (0-1.0) k/uL Metamyelocytes # (Man) 0.35 H (0) k/uL Myelocytes # (Manual) 0.81 H (0) k/uL PT (9.0-12.0) sec INR (<1.2) ABG pH (7.35-7.45) ABG pCO2 (35-45) mmHg ABG HCO3 (21-25) mmol/L ABG Total CO2 (19-24) mmol/L ABG O2 Saturation (94-97) % Sodium 132 L (137-145) mmol/L Chloride 96 L (98-107) mmol/L Carbon Dioxide 14 L (22-30) mmol/L Creatinine 1.31 H (0.66-1.25) mg/dL Glucose 190 H (74-99) mg/dL POC Glucose (mg/dL) (75-99) mg/dL Plasma Lactic Acid Chay 9.7 H* (0.7-2.0) mmol/L Calcium (8.4-10.2) mg/dL Phosphorus (2.5-4.5) mg/dL Magnesium (1.6-2.3) mg/dL Total Bilirubin 1.5 H (0.2-1.3) mg/dL Alkaline Phosphatase 365 H (38-126) U/L Albumin 2.8 L (3.5-5.0) g/dL Urine Protein (Negative) Urine Glucose (UA) (Negative) Urine Ketones (Negative) Urine Blood (Negative) Ur Leukocyte Esterase (Negative) Urine RBC (0-5) /hpf Urine WBC (0-5) /hpf Urine WBC Clumps (None) /hpf Urine Bacteria (None) /hpf Urine Mucus (None) /hpf 07/04/18 07/04/18 07/04/18 Range/Units 16:06 17:45 19:41 WBC (3.8-10.6) k/uL RBC (4.30-5.90) m/uL Hgb (13.0-17.5) gm/dL Hct (39.0-53.0) % MCV (80.0-100.0) fL MCH (25.0-35.0) pg Plt Count (150-450) k/uL Neutrophils # (Manual) (1.3-7.7) k/uL Lymphocytes # (Manual) (1.0-4.8) k/uL Monocytes # (Manual) (0-1.0) k/uL Metamyelocytes # (Man) (0) k/uL Myelocytes # (Manual) (0) k/uL PT 13.5 H (9.0-12.0) sec INR 1.3 H (<1.2) ABG pH 7.49 H (7.35-7.45) ABG pCO2 18 L* (35-45) mmHg ABG HCO3 14 L (21-25) mmol/L ABG Total CO2 14 L (19-24) mmol/L ABG O2 Saturation 100.0 H (94-97) % Sodium (137-145) mmol/L Chloride (98-107) mmol/L Carbon Dioxide (22-30) mmol/L Creatinine (0.66-1.25) mg/dL Glucose (74-99) mg/dL POC Glucose (mg/dL) 198 H (75-99) mg/dL Plasma Lactic Acid Chay (0.7-2.0) mmol/L Calcium (8.4-10.2) mg/dL Phosphorus (2.5-4.5) mg/dL Magnesium (1.6-2.3) mg/dL Total Bilirubin (0.2-1.3) mg/dL Alkaline Phosphatase (38-126) U/L Albumin (3.5-5.0) g/dL Urine Protein (Negative) Urine Glucose (UA) (Negative) Urine Ketones (Negative) Urine Blood (Negative) Ur Leukocyte Esterase (Negative) Urine RBC (0-5) /hpf Urine WBC (0-5) /hpf Urine WBC Clumps (None) /hpf Urine Bacteria (None) /hpf Urine Mucus (None) /hpf 07/04/18 07/04/18 07/05/18 Range/Units 20:45 22:20 00:22 WBC (3.8-10.6) k/uL RBC (4.30-5.90) m/uL Hgb (13.0-17.5) gm/dL Hct (39.0-53.0) % MCV (80.0-100.0) fL MCH (25.0-35.0) pg Plt Count (150-450) k/uL Neutrophils # (Manual) (1.3-7.7) k/uL Lymphocytes # (Manual) (1.0-4.8) k/uL Monocytes # (Manual) (0-1.0) k/uL Metamyelocytes # (Man) (0) k/uL Myelocytes # (Manual) (0) k/uL PT (9.0-12.0) sec INR (<1.2) ABG pH (7.35-7.45) ABG pCO2 (35-45) mmHg ABG HCO3 (21-25) mmol/L ABG Total CO2 (19-24) mmol/L ABG O2 Saturation (94-97) % Sodium (137-145) mmol/L Chloride (98-107) mmol/L Carbon Dioxide (22-30) mmol/L Creatinine (0.66-1.25) mg/dL Glucose (74-99) mg/dL POC Glucose (mg/dL) 229 H (75-99) mg/dL Plasma Lactic Acid Chay 3.9 H* (0.7-2.0) mmol/L Calcium (8.4-10.2) mg/dL Phosphorus (2.5-4.5) mg/dL Magnesium (1.6-2.3) mg/dL Total Bilirubin (0.2-1.3) mg/dL Alkaline Phosphatase (38-126) U/L Albumin (3.5-5.0) g/dL Urine Protein 2+ H (Negative) Urine Glucose (UA) 2+ H (Negative) Urine Ketones Trace H (Negative) Urine Blood Moderate H (Negative) Ur Leukocyte Esterase Trace H (Negative) Urine RBC 11 H (0-5) /hpf Urine WBC 28 H (0-5) /hpf Urine WBC Clumps Many H (None) /hpf Urine Bacteria Moderate H (None) /hpf Urine Mucus Rare H (None) /hpf 07/05/18 07/05/18 07/05/18 Range/Units 05:05 05:05 05:05 WBC 36.8 H (3.8-10.6) k/uL RBC 4.04 L (4.30-5.90) m/uL Hgb 9.9 L D (13.0-17.5) gm/dL Hct 30.1 L (39.0-53.0) % MCV 74.4 L (80.0-100.0) fL MCH 24.6 L (25.0-35.0) pg Plt Count (150-450) k/uL Neutrophils # (Manual) 33.80 H (1.3-7.7) k/uL Lymphocytes # (Manual) 0.74 L (1.0-4.8) k/uL Monocytes # (Manual) 2.21 H (0-1.0) k/uL Metamyelocytes # (Man) 0.74 H (0) k/uL Myelocytes # (Manual) (0) k/uL PT 13.6 H (9.0-12.0) sec INR 1.3 H (<1.2) ABG pH (7.35-7.45) ABG pCO2 (35-45) mmHg ABG HCO3 (21-25) mmol/L ABG Total CO2 (19-24) mmol/L ABG O2 Saturation (94-97) % Sodium 132 L (137-145) mmol/L Chloride (98-107) mmol/L Carbon Dioxide (22-30) mmol/L Creatinine 1.50 H (0.66-1.25) mg/dL Glucose 234 H (74-99) mg/dL POC Glucose (mg/dL) (75-99) mg/dL Plasma Lactic Acid Chay (0.7-2.0) mmol/L Calcium 7.5 L (8.4-10.2) mg/dL Phosphorus 4.6 H (2.5-4.5) mg/dL Magnesium 0.9 L* (1.6-2.3) mg/dL Total Bilirubin (0.2-1.3) mg/dL Alkaline Phosphatase (38-126) U/L Albumin (3.5-5.0) g/dL Urine Protein (Negative) Urine Glucose (UA) (Negative) Urine Ketones (Negative) Urine Blood (Negative) Ur Leukocyte Esterase (Negative) Urine RBC (0-5) /hpf Urine WBC (0-5) /hpf Urine WBC Clumps (None) /hpf Urine Bacteria (None) /hpf Urine Mucus (None) /hpf 03/29/19 03/29/19 Range/Units 05:15 07:20 WBC (3.8-10.6) k/uL RBC (4.30-5.90) m/uL Hgb (13.0-17.5) gm/dL Hct (39.0-53.0) % MCV (80.0-100.0) fL MCH (25.0-35.0) pg Plt Count (150-450) k/uL Neutrophils # (Manual) (1.3-7.7) k/uL Lymphocytes # (Manual) (1.0-4.8) k/uL Monocytes # (Manual) (0-1.0) k/uL Metamyelocytes # (Man) (0) k/uL Myelocytes # (Manual) (0) k/uL PT (9.0-12.0) sec INR (<1.2) ABG pH (7.35-7.45) ABG pCO2 (35-45) mmHg ABG HCO3 (21-25) mmol/L ABG Total CO2 (19-24) mmol/L ABG O2 Saturation (94-97) % Sodium (137-145) mmol/L Chloride (98-107) mmol/L Carbon Dioxide (22-30) mmol/L Creatinine (0.66-1.25) mg/dL Glucose (74-99) mg/dL POC Glucose (mg/dL) 251 H (75-99) mg/dL Plasma Lactic Acid Chay 2.4 H* (0.7-2.0) mmol/L Calcium (8.4-10.2) mg/dL Phosphorus (2.5-4.5) mg/dL Magnesium (1.6-2.3) mg/dL Total Bilirubin (0.2-1.3) mg/dL Alkaline Phosphatase (38-126) U/L Albumin (3.5-5.0) g/dL Urine Protein (Negative) Urine Glucose (UA) (Negative) Urine Ketones (Negative) Urine Blood (Negative) Ur Leukocyte Esterase (Negative) Urine RBC (0-5) /hpf Urine WBC (0-5) /hpf Urine WBC Clumps (None) /hpf Urine Bacteria (None) /hpf Urine Mucus (None) /hpf Microbiology - Last 24 Hours (Table) 07/04/18 18:30 Urine Culture - Preliminary Urine,Catheterized Diabetes panel 07/04/18 07/05/18 Range/Units 16:06 05:05 Sodium 132 L 132 L (137-145) mmol/L Potassium 3.6 3.6 (3.5-5.1) mmol/L Chloride 96 L 99 (98-107) mmol/L Carbon Dioxide 14 L 22 (22-30) mmol/L BUN 11 16 (9-20) mg/dL Creatinine 1.31 H 1.50 H (0.66-1.25) mg/dL Glucose 190 H 234 H (74-99) mg/dL Calcium 9.0 7.5 L (8.4-10.2) mg/dL AST 47 (17-59) U/L ALT 38 (21-72) U/L Alkaline Phosphatase 365 H (38-126) U/L Total Protein 6.4 (6.3-8.2) g/dL Albumin 2.8 L (3.5-5.0) g/dL Calcium panel 07/04/18 07/05/18 Range/Units 16:06 05:05 Calcium 9.0 7.5 L (8.4-10.2) mg/dL Phosphorus 4.6 H (2.5-4.5) mg/dL Albumin 2.8 L (3.5-5.0) g/dL Pituitary panel 07/04/18 07/05/18 Range/Units 16:06 05:05 Sodium 132 L 132 L (137-145) mmol/L Potassium 3.6 3.6 (3.5-5.1) mmol/L Chloride 96 L 99 (98-107) mmol/L Carbon Dioxide 14 L 22 (22-30) mmol/L BUN 11 16 (9-20) mg/dL Creatinine 1.31 H 1.50 H (0.66-1.25) mg/dL Glucose 190 H 234 H (74-99) mg/dL Calcium 9.0 7.5 L (8.4-10.2) mg/dL Adrenal panel 07/04/18 07/05/18 Range/Units 16:06 05:05 Sodium 132 L 132 L (137-145) mmol/L Potassium 3.6 3.6 (3.5-5.1) mmol/L Chloride 96 L 99 (98-107) mmol/L Carbon Dioxide 14 L 22 (22-30) mmol/L BUN 11 16 (9-20) mg/dL Creatinine 1.31 H 1.50 H (0.66-1.25) mg/dL Glucose 190 H 234 H (74-99) mg/dL Calcium 9.0 7.5 L (8.4-10.2) mg/dL Total Bilirubin 1.5 H (0.2-1.3) mg/dL AST 47 (17-59) U/L ALT 38 (21-72) U/L Alkaline Phosphatase 365 H (38-126) U/L Total Protein 6.4 (6.3-8.2) g/dL Albumin 2.8 L (3.5-5.0) g/dL Assessment and Plan Assessment: Sepsis Perforated appendicitis with abscess. Patient will undergo exploratory laparotomy with possible right colectomy today for perforated appendicitis.
[2018-07-05] MEDS: DEXTROSE 5% IN WATER 1,000 ML with SODIUM BICARB (1 MEQ/ML) 150 ML IV SCH ×2 (11:00→22:49)
[2018-07-05] MEDS: SODIUM CHLORIDE 0.9% 1,000 ML IV SCH (11:01)
[2018-07-05] MEDS ORDERED: NEOSTIGMINE 1 MG/ML 10 ML VIAL ONE (11:44)
[2018-07-05] MEDS ORDERED: MIDAZOLAM 2 MG/2 ML VIAL ONE (11:44)
[2018-07-05] MEDS ORDERED: fentaNYL (PF) 50 MCG/ML 2 ML AMP ONE (11:44)
[2018-07-05] MEDS ORDERED: PHENYLEPHRINE-0.9% NACL SYG 1 MG/10 ML SYRINGE ONE (11:44)
[2018-07-05] MEDS ORDERED: GLYCOPYRROLATE 0.2 MG/ML 2 ML VIAL ONE (11:44)
[2018-07-05] MEDS ORDERED: SUCCINYLCHOLINE CHLORIDE VIAL 200 MG/10 ML VIAL IV ONE (11:44)
[2018-07-05] MEDS ORDERED: ROCURONIUM BROMIDE 10 MG/ML 10 ML VIAL IV ONE (11:44)
[2018-07-05] MEDS ORDERED: PROPOFOL 10 MG/ML 20 ML VIAL IV ONE (11:44)
[2018-07-05] MEDS ORDERED: LACTATED RINGERS 1,000 ML IV ONE (11:54)
--- NOTE | 2018-07-05 12:24 | P.CNPUL ---
History of Present Illness Consult date: 07/05/18 Requesting physician: Mayank Stovall Reason for consult: other (acute abdominal sepsis) Chief complaint: abdominal pain History of present illness: this is a 43-year-old white male with history of diabetes, hypertension, seizure disorder, supraventricular tachycardia, patient presented to the ER with almost 1 week history of uncomfortable feeling in the abdomen. Pain has been described in the right mid abdomen area, patient has been feeling recently extremely lightheaded, and he passed out twice before he came into the hospital. Upon presentation to the hospital, the patient was noted to be febrile with a temp of 101.6, he was tachycardic, and blood pressure was normal. Lactic acid was noted to be elevated at 9.7. Influenza screen was negative. His liver enzymes were noted to be a bit elevated. And CT of the abdomen and pelvis showedabdominal abscess, and markedly thickened appendix. The radiologist felt this is consistent with appendicitis and the rupture. Patient was started on broad- spectrum antibiotics, admitted to the intensive care unit and he was placed on a bicarb drip for his metabolic acidosis. Surgical consultation was initiated. And he is being considered for exploratory laparotomy sometime today. Since admission the patient has made a significant improvement. He is feeling better, breathing easier, his pain is well controlled, and he is hemodynamically stable. Did not require any pressors. Patient responded mostly to fluids and antibiotics.all along the patient had no significant pulmonary symptoms except a bit of shortness of breath when he was in the ER yesterday. Review of Systems Constitutional: fever chills no weight loss, poor appetite Eyes: denies blurred vision or diplopia. Ears, nose, mouth and throat: Denies dysphagia, Denies headache, Denies mouth pain, Denies nasal congestion, Denies nasal discharge, Denies sore throat Cardiovascular: had couple of episodes of syncope before arrival to the ER. No chest pain, no palpitations. Respiratory:no cough no wheezing no shortness of breath Gastrointestinal: as noted in HPI. Genitourinary: denies dysuria frequency or urgency. Musculoskeletal: reports mostly generalized weakness and fatigue. Integumentary: no pruritus, no erythema. Neurological: denies headache blurred vision or dizziness, denies any seizures, patient had syncopal episodes before presentation to the ER yesterday. Psychiatric:her symptoms of anxiety or depression per Endocrine: denies heat or cold intolerance. Past Medical History Past Medical History: Diabetes Mellitus, Hypertension, Seizure Disorder, Supraventricular Tachycardia (SVT) Additional Past Medical History / Comment(s): last seizure 2.5yrs ago History of Any Multi-Drug Resistant Organisms: None Reported Past Surgical History: Hernia Repair, Orthopedic Surgery, Tonsillectomy Additional Past Surgical History / Comment(s): right knee sx, upper palate reconstruction for sleep apnea Past Anesthesia/Blood Transfusion Reactions: No Reported Reaction Past Psychological History: Bipolar, Depression, Schizophrenia Additional Psychological History / Comment(s): no current thoughts of harming self. Smoking Status: Former smoker Past Alcohol Use History: None Reported Additional Past Alcohol Use History / Comment(s): Patient was a smoker one pack per day of cigarettes for 5 years and quit in 1992. He does smoke marijuana occasionally. He denies any illicit drug use or alcohol use. He lives with his son and a roommate and recently moved to [facility] 4 years ago. He is on disability due to mental health illness with bipolar disorder. He worked in the past in [employer]. He denies any travel, no service. Past Drug Use History: Marijuana Additional Drug Use History / Comment(s): Current marijuana smoker. - Past Family History Mother Family Medical History: Diabetes Mellitus Additional Family Medical History / Comment(s): CHF Medications and Allergies Home Medications Medication Instructions Recorded Confirmed Type Insulin Glargine [Lantus] 50 units SQ HS 03/23/15 07/04/18 History Atorvastatin Calcium [Lipitor] 20 mg PO HS 09/14/16 07/04/18 History DULoxetine HCL [Cymbalta] 60 mg PO DAILY 09/14/16 07/04/18 History metFORMIN HCL [Glucophage] 850 mg PO TID 09/14/16 07/04/18 History Atenolol 25 mg PO DAILY 07/04/18 07/04/18 History DULoxetine HCL [Cymbalta] 30 mg PO DAILY 07/04/18 07/04/18 History Divalproex [Depakote] 250 mg PO HS 07/04/18 07/04/18 History Lisinopril [Zestril] 10 mg PO DAILY 07/04/18 07/04/18 History Vortioxetine Hydrobromide 10 mg PO DAILY 07/04/18 07/04/18 History [Trintellix] Allergies Allergy/AdvReac Type Severity Reaction Status Date / Time carbamazepine [From Tegretol] Allergy Severe Anaphylaxis Verified 07/04/18 17:02 lithium [Garvin] Allergy Severe Anaphylaxis Verified 07/04/18 17:02 shellfish derived Allergy Severe Anaphylaxis Verified 07/04/18 17:02 aspartame Allergy Unknown Verified 07/04/18 17:02 citalopram hydrobromide AdvReac Intermediate Nausea & Verified 07/04/18 17:02 [From Celexa] Vomiting Physical Exam Vitals: Vital Signs Temp Pulse Resp BP Pulse Ox 07/05/18 08:00 98.5 F 90 26 H 118/75 95 07/05/18 07:00 94 25 H 120/74 94 L 07/05/18 06:00 95 31 H 112/72 94 L 07/05/18 05:00 96 29 H 109/75 94 L 07/05/18 04:00 97.8 F 96 29 H 100/73 94 L 07/05/18 03:00 101 H 31 H 101/65 94 L 07/05/18 02:00 110 H 31 H 108/62 93 L 07/05/18 01:00 117 H 46 H 102/51 93 L 07/05/18 00:00 100.9 F H 125 H 31 H 118/70 92 L 07/04/18 23:22 124 H 48 H 91/50 91 L 07/04/18 23:00 124 H 51 H 91/50 94 L 07/04/18 22:00 98.0 F 124 H 44 H 128/60 93 L 07/04/18 21:00 120 H 44 H 120/56 95 07/04/18 20:50 120 H 42 H 120/56 96 07/04/18 20:40 120 H 10 L 120/56 95 07/04/18 20:35 97 07/04/18 20:30 120 H 16 115/69 97 07/04/18 20:20 118 H 33 H 115/69 97 07/04/18 20:10 120 H 29 H 115/69 97 07/04/18 20:00 120 H 30 H 111/45 98 07/04/18 19:50 100.2 F H 117 H 23 111/45 96 07/04/18 19:22 99.3 F 118 H 26 H 117/56 94 L 07/04/18 19:20 118 H 26 H 117/56 91 L 07/04/18 19:10 121 H 39 H 94/82 97 07/04/18 19:00 121 H 31 H 07/04/18 18:50 124 H 43 H 07/04/18 18:40 124 H 16 101/61 07/04/18 18:36 125 H 20 101/61 95 07/04/18 18:30 124 H 24 80/40 94 L 07/04/18 18:20 125 H 31 H 84/67 99 07/04/18 18:10 125 H 30 H 76/43 99 07/04/18 18:00 128 H 31 H 95/61 98 07/04/18 17:50 129 H 32 H 95/61 98 07/04/18 17:40 135 H 17 106/62 97 07/04/18 17:30 141 H 32 H 106/62 98 07/04/18 17:25 135 H 20 100 07/04/18 17:20 110/61 07/04/18 17:10 156 H 30 H 110/61 07/04/18 17:00 158 H 36 H 118/79 96 07/04/18 16:50 158 H 26 H 118/79 96 07/04/18 16:40 161 H 16 123/70 96 07/04/18 16:30 165 H 18 125/66 95 07/04/18 16:20 170 H 20 125/66 96 07/04/18 16:10 174 H 25 H 147/55 98 07/04/18 16:00 176 H 28 H 105/62 94 L 07/04/18 15:50 176 H 14 139/55 96 07/04/18 15:48 101.6 F H 175 H 20 139/55 96 07/04/18 15:43 97 Intake and Output 07/04/18 07/05/18 07/05/18 22:59 06:59 14:59 Intake Total 480 2300 550 Output Total 30 700 425 Balance 450 1600 125 Intake: IV 480 2300 550 ACETAMINOPHEN IV (For NPO 100 ) 1,000 mg In Empty Bag 1 bag @ 400 mls/hr IVPB Q6HR PRN Rx#:[id number] Dextrose 5% in Water 1, 200 800 200 000 ml @ 100 mls/hr IV . [id number] BRANDIE with Sodium Bicarb (1 Meq/ml) 150 ml Rx#:[id number] Magnesium Sulfate-D5w Pmx 100 100 1 gm In Dextrose/Water 1 100ml.bag @ 100 mls/hr IVPB Q1H BRANDIE Rx#: [id number] Potassium Chloride 10 meq 100 200 100 In Water For Injection 1 100ml.bag @ 100 mls/hr IVPB Q1H BRANDIE Rx#: [id number] Sodium Chloride 0.9% 1, 180 600 150 000 ml @ 75 mls/hr IV . [id number] BRANDIE Rx#:[id number] Vancomycin 2,000 mg In 500 Sodium Chloride 0.9% 500 ml 500 ml @ 167 mls/hr IVPB Q12H BRANDIE Rx#: [id number] Output: Urine 30 700 425 Other: Voiding Method Indwelling Catheter Indwelling Catheter Weight 139.752 kg 140.4 kg Physical Exam: Revealed a 43-year-old white male, obese, in no distress. Head: Atraumatic, normocephalic. HEENT:[Neck is supple.] [No neck masses.] [No thyromegaly.] [No JVD.]PERRLA, EOMI, no icterus. Chest: [Clear throughout, no crackles, no rhonchi, no wheezes.] Cardiac Exam: [Normal S1 and S2, no S3 gallop, no murmur.] Abdomen: [obese,Soft, slightly tender in the right lower quadrant, no rebound, no guarding. Positive bowel sounds Extremities: [No clubbing, no edema, no cyanosis.] Neurological Exam: [No focal neurologic deficit. psychiatric: Normal mood affect and mental status examination Lymphatics: No lymphadenopathy. Skin: No rashes.] Results - Laboratory Findings CBC and BMP: 07/05/18 05:05 07/05/18 05:05 ABG ABG pH 7.49 (7.35-7.45) H 07/04/18 17:45 ABG pCO2 18 mmHg (35-45) L* 07/04/18 17:45 ABG pO2 99 mmHg (83-108) 07/04/18 17:45 ABG O2 Saturation 100.0 % (94-97) H 07/04/18 17:45 PT/INR, D-dimer PT 13.6 sec (9.0-12.0) H 07/05/18 05:05 INR 1.3 (<1.2) H 07/05/18 05:05 Abnormal lab findings: Abnormal Labs 07/04/18 07/04/18 07/04/18 16:06 16:06 16:06 WBC 11.6 H RBC Hgb 12.1 L Hct 37.5 L MCV 74.0 L MCH 23.9 L Plt Count 479 H Neutrophils # (Manual) 9.20 H Lymphocytes # (Manual) 0.93 L Monocytes # (Manual) Metamyelocytes # (Man) 0.35 H Myelocytes # (Manual) 0.81 H PT INR ABG pH ABG pCO2 ABG HCO3 ABG Total CO2 ABG O2 Saturation Sodium 132 L Chloride 96 L Carbon Dioxide 14 L Creatinine 1.31 H Glucose 190 H POC Glucose (mg/dL) Plasma Lactic Acid Chay 9.7 H* Calcium Phosphorus Magnesium Total Bilirubin 1.5 H Alkaline Phosphatase 365 H Albumin 2.8 L Urine Protein Urine Glucose (UA) Urine Ketones Urine Blood Ur Leukocyte Esterase Urine RBC Urine WBC Urine WBC Clumps Urine Bacteria Urine Mucus 07/04/18 07/04/18 07/04/18 16:06 17:45 19:41 WBC RBC Hgb Hct MCV MCH Plt Count Neutrophils # (Manual) Lymphocytes # (Manual) Monocytes # (Manual) Metamyelocytes # (Man) Myelocytes # (Manual) PT 13.5 H INR 1.3 H ABG pH 7.49 H ABG pCO2 18 L* ABG HCO3 14 L ABG Total CO2 14 L ABG O2 Saturation 100.0 H Sodium Chloride Carbon Dioxide Creatinine Glucose POC Glucose (mg/dL) 198 H Plasma Lactic Acid Chay Calcium Phosphorus Magnesium Total Bilirubin Alkaline Phosphatase Albumin Urine Protein Urine Glucose (UA) Urine Ketones Urine Blood Ur Leukocyte Esterase Urine RBC Urine WBC Urine WBC Clumps Urine Bacteria Urine Mucus 07/04/18 07/04/18 07/05/18 20:45 22:20 00:22 WBC RBC Hgb Hct MCV MCH Plt Count Neutrophils # (Manual) Lymphocytes # (Manual) Monocytes # (Manual) Metamyelocytes # (Man) Myelocytes # (Manual) PT INR ABG pH ABG pCO2 ABG HCO3 ABG Total CO2 ABG O2 Saturation Sodium Chloride Carbon Dioxide Creatinine Glucose POC Glucose (mg/dL) 229 H Plasma Lactic Acid Chay 3.9 H* Calcium Phosphorus Magnesium Total Bilirubin Alkaline Phosphatase Albumin Urine Protein 2+ H Urine Glucose (UA) 2+ H Urine Ketones Trace H Urine Blood Moderate H Ur Leukocyte Esterase Trace H Urine RBC 11 H Urine WBC 28 H Urine WBC Clumps Many H Urine Bacteria Moderate H Urine Mucus Rare H 07/05/18 07/05/18 07/05/18 05:05 05:05 05:05 WBC 36.8 H RBC 4.04 L Hgb 9.9 L D Hct 30.1 L MCV 74.4 L MCH 24.6 L Plt Count Neutrophils # (Manual) 33.80 H Lymphocytes # (Manual) 0.74 L Monocytes # (Manual) 2.21 H Metamyelocytes # (Man) 0.74 H Myelocytes # (Manual) PT 13.6 H INR 1.3 H ABG pH ABG pCO2 ABG HCO3 ABG Total CO2 ABG O2 Saturation Sodium 132 L Chloride Carbon Dioxide Creatinine 1.50 H Glucose 234 H POC Glucose (mg/dL) Plasma Lactic Acid Chay Calcium 7.5 L Phosphorus 4.6 H Magnesium 0.9 L* Total Bilirubin Alkaline Phosphatase Albumin Urine Protein Urine Glucose (UA) Urine Ketones Urine Blood Ur Leukocyte Esterase Urine RBC Urine WBC Urine WBC Clumps Urine Bacteria Urine Mucus 07/05/18 07/05/18 05:15 07:20 WBC RBC Hgb Hct MCV MCH Plt Count Neutrophils # (Manual) Lymphocytes # (Manual) Monocytes # (Manual) Metamyelocytes # (Man) Myelocytes # (Manual) PT INR ABG pH ABG pCO2 ABG HCO3 ABG Total CO2 ABG O2 Saturation Sodium Chloride Carbon Dioxide Creatinine Glucose POC Glucose (mg/dL) 251 H Plasma Lactic Acid Chay 2.4 H* Calcium Phosphorus Magnesium Total Bilirubin Alkaline Phosphatase Albumin Urine Protein Urine Glucose (UA) Urine Ketones Urine Blood Ur Leukocyte Esterase Urine RBC Urine WBC Urine WBC Clumps Urine Bacteria Urine Mucus - Diagnostic Findings Additional studies: CT of the abdomen and pelvis was reviewed and as noted in HPI. Assessment and Plan Assessment: impression: 1 acute abdominal sepsis secondary to ruptured appendix with peritonitis and lactic acidosis on presentation. 2 acute kidney injury secondary to sepsis and acute tubular necrosis. 3 recurrent episodes of syncope since secondary to sepsis and hypotension. 4 history of type 2 diabetes 5 history of hypertension 6 history of seizure disorder 7 history of supraventricular tachycardia. Recommendation: Continue present treatment plan including antibiotics, fluids, surgical intervention will likely be done today, patient was seen by general surgery on consultation, and he may require exploratory laparotomy. We'll co asuncion to follow. Time with Patient: Greater than 30
[2018-07-05] MEDS ORDERED: BENZOCAINE/MENTHOL LOZENG 1 EACH LOZENGE MUCOUS MEM PRN (13:42)
[2018-07-05] MEDS ORDERED: METOCLOPRAMIDE 5 MG/ML 2 ML VIAL IVP PRN (13:42)
--- NOTE | 2018-07-05 13:42 | P.OP ---
Date of Procedure: 07/05/18 Preoperative Diagnosis: Sepsis Ruptured appendicitis Postoperative Diagnosis: Sepsis Ruptured appendicitis Procedure(s) Performed: Exploratory laparotomy Right colectomy Drainage of retroperitoneal abscess Anesthesia: ANGELICA Surgeon: Mayank Stovall Estimated Blood Loss (ml): 50 Pathology: other (Right colon, abscess culture) Condition: stable Disposition: PACU Description of Procedure: The patient's placed on the operative table in the supine position. He received general anesthesia. The patient had a massive abdominal wall. He was morbidly obese. The skin was prepped and draped in usual sterile fashion. The area was entered through a midline incision. The Bookwalter has placed a wound. The abdomen was explored. In the right lower quadrant there was a very inflamed cecum the cecum was gently dissected in an abscess cavity was entered. There was approximately 50 mL appearing fluid. This was aspirated and cultured. The right colon was then mobilized. The mobilization is very difficult due to the dense inflammation. The ureter could not be visualized. The colon was rotated medially. The hepatic flexure was taken down with sharp dissection and blunt dissection and the Enseal device. The proximal transverse colon was then transected with the DIMA stapler. The terminal ileum was then transected with a GI stapler. The mesentery the bowel was then divided using the Enseal device. The specimens of pathology. The abdomen was irrigated. The abscess cavity appeared to extend from the level of the cecum along the posterior wall of the ascending colon. This area was very inflamed. Due to the patient's large amount and abdominal body fat was very difficult to mobilize in view of the colon. At this point a [id number] functional end-to-end staple anastomosis created using the TA and DIMA stapler.. A 3-0 GI silk suture was used a crotch stitch. The abdomen was then irrigated. A KAROLYN drain is placed in the right lower quadrant and brought through separate stab incision. The fascia was closed with looped #1 PDS suture. Skin was closed shawna. Patient tolerated procedure well was sent to recovery room stable condition.
[2018-07-05 14:27] LABS: Hemoglobin A1C 8.2 % (4.0-6.0)
[2018-07-05 15:09] LABS: Glucose,Whole Blood 317 mg/dL (75-99)
[2018-07-05 15:34] LABS: ABG Base Excess 0.3 mmol/L; ABG HCO3 25 mmol/L (21-25); ABG Oxygen Saturation 96.5 % (94-97); ABG PCO2 40 mmHg (35-45); ABG PH 7.41 (7.35-7.45); ABG PO2 84 mmHg (83-108); ABG TCO2 26 mmol/L (19-24)
[2018-07-05 15:52] LABS: Glucose,Whole Blood 315 mg/dL (75-99)
[2018-07-05] MEDS: D5-0.45% NACL WITH KCL 20MEQ/L 1,000 ML IV SCH ×2 (16:12→20:53)
[2018-07-05 16:23] LABS: HCT 31.8 % (39.0-53.0); HGB 10.3 gm/dL (13.0-17.5); MCH 23.7 pg (25.0-35.0); MCHC 32.3 g/dL (31.0-37.0); MCV 73.6 fL (80.0-100.0); Mean Platelet Volume 7.7; Microcytosis Slight; Platelet Count 329 k/uL (150-450); RBC 4.32 m/uL (4.30-5.90); RDW 14.5 % (11.5-15.5); WBC 31.1 k/uL (3.8-10.6)
[2018-07-05 16:33] LABS: Calcium 7.3 mg/dL (8.4-10.2); Potassium 3.9 mmol/L (3.5-5.1)
[2018-07-05] MEDS: ONDANSETRON 4 MG/2 ML VIAL IVP PRN (16:58)
[2018-07-05 17:04] LABS: Band Neutrophils % 18 %; Eosinophils # (M) 0.31 k/uL (0-0.7); Lymphocytes # (M) 1.24 k/uL (1.0-4.8); Metamyelocytes # (M) 0.31 k/uL (0); Metamyelocytes % 1 %; Monocytes # (M) 0.93 k/uL (0-1.0); Neutrophils % (M) 76 %; Nucleated Red Blood Cells 0 /100 WBC (0-0); Total Cells Counted 200
[2018-07-05 17:05] LABS: Large Platelets Present; Toxic Granulation Present; Toxic Vacuolation Present
--- NOTE | 2018-07-05 18:15 | P.CON ---
Consult Note - . Consult date: 07/05/18 Assessment/Plan:: This is a 43-year-old male who gives history of having an uncomfortable feeling in his abdomen but no real pain for the past week as well as fever and chills and diarrhea. Pain was in the right middle abdomen. He states he was feeling lightheaded ended up passing out hitting his face on the ground and his son made him come into the hospital for evaluation. Patient was found to have a temperature of 101.6, tachycardia, blood pressure was stable at 139/55, pulse ox 96 on 2 L. White count initially 11.6 and now at 36.8, hemoglobin 9.9, Pletal count 341. Creatinine 1.31 with repeat of 1.5. Magnesium 0.9, CO2 14, lactic acid 9.7. Influenza testing was negative. Total bilirubin 1.5, alkaline phosphatase 365, albumin 2.8. Urinalysis showed some blood and white cells. Blood cultures status received as well as urine culture. CAT scan of the chest abdomen and pelvis showed appendix with rupture. Chest x-ray patchy medial basilar atelectasis and or developing pneumonia. Patient was given a dose of cefepime and vancomycin, continued on vancomycin and admitted into the intensive care unit. He has been on sodium bicarb drip, Sorensen catheter has been placed. He has not required vasopressors. Surgery is sche duled for today. Patient is a [id number] diabetic and he states his last physical when A1c was 7.2. Please see the consult note as Dictated by the Nurse Practitioner Mrs. Nelli Mckinney. 43-year-old male presents with fever abdominal pain and about of lightheadedness and syncope was brought to hospital with evidence of sepsis. With abdominal pain and abnormality computed tomography scan shows evidence of the free air in the pelvis to go to the operating room for surgical intervention. Antibiotic therapy with Zosyn has been initiated for treatment of intra-abdominal sepsis related to his ruptured appendix. Vancomycin has been initiated and will likely BD escalated depending on culture results. Improvement of his glucose control will be important in helping him in the postoperative timeframe. Cultures will help determine the final course of antibiotic therapy as he improves. Postoperatively ongoing supportive care, initiating nutrition as soon as possible to allow further improvement of his status. I agree with the evaluation, assessment and plan as dictated by nurse practitioner Mrs. Nelli Mckinney.
[2018-07-05 18:43] LABS: Glucose,Whole Blood 286 mg/dL (75-99)
[2018-07-05] MEDS: INSULIN REGULAR 100 UNIT in SODIUM CHLORIDE 0.9% 100 ML IV SCH (19:23)
[2018-07-05] MEDS: MORPHINE SULFATE 4 MG/ML SYRINGE IV PRN (19:33)
[2018-07-05 20:09] LABS: Glucose,Whole Blood 243 mg/dL (75-99)
[2018-07-05] MEDS: FAMOTIDINE 20 MG/2 ML VIAL IV SCH (20:49)
[2018-07-05 21:14] LABS: Glucose,Whole Blood 215 mg/dL (75-99)
[2018-07-05 21:52] LABS: Glucose,Whole Blood 217 mg/dL (75-99)
[2018-07-05 22:54] LABS: Glucose,Whole Blood 213 mg/dL (75-99)
[2018-07-06 00:11] LABS: Glucose,Whole Blood 220 mg/dL (75-99)
[2018-07-06] MEDS: MAGNESIUM SULFATE-D5W PMX 1 GM in DEXTROSE/WATER 1 100ML.BAG IVPB SCH (00:14)
[2018-07-06] MEDS: SODIUM CHLORIDE 0.9% 1,000 ML IV SCH ×4 (00:16→17:10)
[2018-07-06 01:17] LABS: Glucose,Whole Blood 234 mg/dL (75-99)
[2018-07-06 01:53] LABS: Glucose,Whole Blood 210 mg/dL (75-99)
[2018-07-06 02:04] LABS: Glucose,Whole Blood 200 mg/dL (75-99)
[2018-07-06 03:17] LABS: Glucose,Whole Blood 180 mg/dL (75-99)
[2018-07-06 03:55] LABS: Glucose,Whole Blood 171 mg/dL (75-99)
[2018-07-06] MEDS: ONDANSETRON 4 MG/2 ML VIAL IVP PRN ×2 (04:03→17:56)
[2018-07-06 04:19] LABS: HCT 29.5 % (39.0-53.0); HGB 9.9 gm/dL (13.0-17.5); MCH 24.4 pg (25.0-35.0); MCHC 33.6 g/dL (31.0-37.0); MCV 72.4 fL (80.0-100.0); Mean Platelet Volume 7.5; Microcytosis Slight; Platelet Count 321 k/uL (150-450); RBC 4.08 m/uL (4.30-5.90); RDW 14.3 % (11.5-15.5); WBC 27.3 k/uL (3.8-10.6)
[2018-07-06 04:28] LABS: Anion Gap 8 mmol/L; Blood Urea Nitrogen 13 mg/dL (9-20); Calcium 6.9 mg/dL (8.4-10.2); Carbon Dioxide 28 mmol/L (22-30); Chloride 99 mmol/L (98-107); Glucose 159 mg/dL (74-99); Magnesium 2.1 mg/dL (1.6-2.3); Phosphorus 2.2 mg/dL (2.5-4.5); Potassium 3.4 mmol/L (3.5-5.1); Sodium 135 mmol/L (137-145)
[2018-07-06 04:49] LABS: Band Neutrophils % 4 %; Lymphocytes # (M) 2.18 k/uL (1.0-4.8); Monocytes # (M) 0.55 k/uL (0-1.0); Neutrophils % (M) 86 %; Nucleated Red Blood Cells 0 /100 WBC (0-0); Total Cells Counted 100
[2018-07-06] MEDS: MORPHINE SULFATE 4 MG/ML SYRINGE IV PRN ×2 (04:58→13:04)
[2018-07-06 05:03] LABS: Glucose,Whole Blood 141 mg/dL (75-99)
[2018-07-06 06:11] LABS: Glucose,Whole Blood 138 mg/dL (75-99)
[2018-07-06] MEDS ORDERED: Phosphorus Replacement Protoco 1 EACH MISC MISCELLANE PRN (06:17)
[2018-07-06] MEDS: VANCOMYCIN 2,000 MG in SODIUM CHLORIDE 0.9% 500 ML 500 ML IVPB SCH ×2 (06:20→17:10)
[2018-07-06] MEDS: POTASSIUM CHLORIDE 20 MEQ in WATER FOR INJECTION 1 100ML.BAG IVPB SCH ×2 (06:20→11:08)
--- NOTE | 2018-07-06 06:22 | XR ---
EXAMINATION TYPE: XR chest 1V portable DATE OF EXAM: 07/06/2018 HISTORY: adventitious lung sounds. REFERENCE: Previous study dated 07/05/2018. FINDINGS: The patient's left internal jugular catheter remains in place, unchanged in appearance as t ip is in the superior vena cava. The heart is enlarged. There is some bibasilar airspace disease. I suspect small effusions. IMPRESSION: NO SIGNIFICANT INTERVAL CHANGE IN THE APPEARANCE OF THE CHEST.
[2018-07-06 07:12] LABS: Glucose,Whole Blood 140 mg/dL (75-99)
[2018-07-06] MEDS: INSULIN REGULAR 100 UNIT in SODIUM CHLORIDE 0.9% 100 ML IV SCH (07:14)
[2018-07-06] MEDS ORDERED: SODIUM PHOSPHATE 10 MMOL in SODIUM CHLORIDE 0.9% 100 ML IVPB ONE (08:00)
--- NOTE | 2018-07-06 10:34 | P.PN ---
Progress Note - Text Progress Note Date: 07/06/18 The patient's postoperative day 1 from right colectomy for perforated appendicitis. He has minimal complaints of pain. He is doing quite well. On exam his vital signs are stable. His abdomen is soft. Incision site is clean dry intact. KAROLYN drain has some serosanguineous drainage. Status post right colectomy for perforated appendicitis. Patient will remain d the ICU. He'll receive IV antibiotics.
[2018-07-06 11:08] LABS: Glucose,Whole Blood 130 mg/dL (75-99)
[2018-07-06] MEDS: FAMOTIDINE 20 MG/2 ML VIAL IV SCH ×2 (11:09→20:32)
[2018-07-06] MEDS: PIPERACILLIN-TAZOBACTAM 3.375 GM in SODIUM CHLORIDE 0.9% 100 ML IVPB SCH ×2 (11:09→17:10)
[2018-07-06 12:25] LABS: Glucose,Whole Blood 120 mg/dL (75-99)
--- NOTE | 2018-07-06 13:06 | P.PN ---
Subjective Progress Note Date: 07/06/18 Principal diagnosis: Acute abdominal sepsis his is a 43-year-old white male with history of diabetes, hypertension, seizure disorder, supraventricular tachycardia, patient presented to the ER with almost 1 week history of uncomfortable feeling in the abdomen. Pain has been described in the right mid abdomen area, patient has been feeling recently extremely lightheaded, and he passed out twice before he came into the hospital. Upon presentation to the hospital, the patient was noted to be febrile with a temp of 101.6, he was tachycardic, and blood pressure was normal. Lactic acid was noted to be elevated at 9.7. Influenza screen was negative. His liver enzymes were noted to be a bit elevated. And CT of the abdomen and pelvis showedabdominal abscess, and markedly thickened appendix. The radiologist felt this is consistent with appendicitis and the rupture. Patient was started on broad- spectrum antibiotics, admitted to the intensive care unit and he was placed on a bicarb drip for his metabolic acidosis. Surgical consultation was initiated. And he is being considered for exploratory laparotomy sometime today. Since admission the patient has made a significant improvement. He is feeling better, breathing easier, his pain is well controlled, and he is hemodynamically stable. Did not require any pressors. Patient responded mostly to fluids and antibi otics.all along the patient had no significant pulmonary symptoms except a bit of shortness of breath when he was in the ER yesterday. Patient was reevaluated today on 07/06/2018, he underwent exploratory laparotomy and right colectomy by Dr. Stovall, and postoperatively he was sent to the ICU on mechanical ventilation. Shortly after he arrived to the ICU, I extubated the patient, and placed on nasal cannula. Patient was reevaluated today, he is doing great, relatively asymptomatic, sitting in bed, talking on the phone. Denies any cough no wheezing no shortness of breath denies any abdominal discomfort. His WBC count is down to 27.3 his other labs were noted to be relatively unremarkable. Electrolytes and renal profile were noted to be normal. Chest x-ray this morning showed no acute process. Objective - Vital Signs Vital signs: Vital Signs Temp 97.9 F 07/06/18 10:00 Pulse 112 H 07/06/18 11:00 Resp 21 07/06/18 11:00 BP 133/84 07/06/18 11:00 Pulse Ox 97 07/06/18 11:00 Intake & Output 07/05/18 07/06/18 07/06/18 18:59 06:59 18:59 Intake Total 3525 4232.148 660.205 Output Total 2575 1550 375 Balance 950 2682.148 285.205 Weight 146.3 kg Intake: IV 3525 4150 625 D5-0.45% NaCl with KCl 750 20Meq/l 1,000 ml @ 125 mls/hr IV .Q8H [facility] Rx#: [id number] Dextrose 5% in Water 1, 1100 700 000 ml @ 100 mls/hr IV . [id number] [facility] with Sodium Bicarb (1 Meq/ml) 150 ml Rx#:[id number] Magnesium Sulfate-D5w Pmx 300 400 1 gm In Dextrose/Water 1 100ml.bag @ 100 mls/hr IVPB Q1H [facility] Rx#: [id number] Piperacillin-Tazobactam 3 200 .375 gm In Sodium Chloride 0.9% 100 ml @ 25 mls/hr IVPB Q8HR [facility] Rx# :[id number] Potassium Chloride 10 meq 100 In Water For Injection 1 100ml.bag @ 100 mls/hr IVPB Q1H [facility] Rx#: [id number] Potassium Chloride 20 meq 100 In Water For Injection 1 100ml.bag @ 50 mls/hr IVPB Q2H [facility] Rx#: [id number] Sodium Chloride 0.9% 1, 825 1200 625 000 ml @ 75 mls/hr IV . [id number] [facility] Rx#:[id number] Vancomycin 2,000 mg In 1000 Sodium Chloride 0.9% 500 ml 500 ml @ 167 mls/hr IVPB Q12H [facility] Rx#: [id number] Intake, IV Titration 82.148 35.205 Amount Insulin Regular 100 unit 82.148 35.205 In Sodium Chloride 0.9% 100 ml @ Per Protocol IV .Q0M [facility] Rx#:[id number] Output: Urine 2375 1550 375 Estimated Blood Loss 200 Other: Voiding Method Indwelling Catheter Indwelling Catheter - Exam Physical Exam: Revealed a 43-year-old white male, obese, in no distress. Head: Atraumatic, normocephalic. HEENT:[Neck is supple.] [No neck masses.] [No thyromegaly.] [No JVD.]PERRLA, EOMI, no icterus. Chest: [Clear throughout, no crackles, no rhonchi, no wheezes.] Cardiac Exam: [Normal S1 and S2, no S3 gallop, no murmur.] Abdomen: [Postsurgical, obese,Soft, slightly tender in the right lower quadrant, no rebound, no guarding. Positive bowel sounds Extremities: [No clubbing, no edema, no cyanosis.] Neurological Exam: [No focal neurologic deficit. psychiatric: Normal mood affect and mental status examination Lymphatics: No lymphadenopathy. Skin: No rashes.] - Labs CBC & Chem 7: 07/06/18 04:00 07/06/18 04:00 Labs: Abnormal Lab Results - Last 24 Hours (Table) 07/05/18 07/05/18 07/05/18 Range/Units 05:05 14:42 15:33 WBC (3.8-10.6) k/uL RBC (4.30-5.90) m/uL Hgb (13.0-17.5) gm/dL Hct (39.0-53.0) % MCV (80.0-100.0) fL MCH (25.0-35.0) pg Neutrophils # (Manual) (1.3-7.7) k/uL Metamyelocytes # (Man) (0) k/uL ABG Total CO2 26 H (19-24) mmol/L Sodium (137-145) mmol/L Potassium (3.5-5.1) mmol/L Glucose (74-99) mg/dL POC Glucose (mg/dL) 317 H (75-99) mg/dL Hemoglobin A1c 8.2 H (4.0-6.0) % Plasma Lactic Acid Chay (0.7-2.0) mmol/L Calcium (8.4-10.2) mg/dL Phosphorus (2.5-4.5) mg/dL 07/05/18 07/05/18 07/05/18 Range/Units 15:42 15:42 15:42 WBC 31.1 H (3.8-10.6) k/uL RBC (4.30-5.90) m/uL Hgb 10.3 L (13.0-17.5) gm/dL Hct 31.8 L (39.0-53.0) % MCV 73.6 L (80.0-100.0) fL MCH 23.7 L (25.0-35.0) pg Neutrophils # (Manual) 29.20 H (1.3-7.7) k/uL Metamyelocytes # (Man) 0.31 H (0) k/uL ABG Total CO2 (19-24) mmol/L Sodium 134 L (137-145) mmol/L Potassium (3.5-5.1) mmol/L Glucose 289 H (74-99) mg/dL POC Glucose (mg/dL) (75-99) mg/dL Hemoglobin A1c (4.0-6.0) % Plasma Lactic Acid Chay 2.9 H* (0.7-2.0) mmol/L Calcium 7.3 L (8.4-10.2) mg/dL Phosphorus (2.5-4.5) mg/dL 07/05/18 07/05/18 07/05/18 Range/Units 15:47 18:28 20:05 WBC (3.8-10.6) k/uL RBC (4.30-5.90) m/uL Hgb (13.0-17.5) gm/dL Hct (39.0-53.0) % MCV (80.0-100.0) fL MCH (25.0-35.0) pg Neutrophils # (Manual) (1.3-7.7) k/uL Metamyelocytes # (Man) (0) k/uL ABG Total CO2 (19-24) mmol/L Sodium (137-145) mmol/L Potassium (3.5-5.1) mmol/L Glucose (74-99) mg/dL POC Glucose (mg/dL) 315 H 286 H 243 H (75-99) mg/dL Hemoglobin A1c (4.0-6.0) % Plasma Lactic Acid Chay (0.7-2.0) mmol/L Calcium (8.4-10.2) mg/dL Phosphorus (2.5-4.5) mg/dL 07/05/18 07/05/18 07/05/18 Range/Units 20:59 21:49 22:51 WBC (3.8-10.6) k/uL RBC (4.30-5.90) m/uL Hgb (13.0-17.5) gm/dL Hct (39.0-53.0) % MCV (80.0-100.0) fL MCH (25.0-35.0) pg Neutrophils # (Manual) (1.3-7.7) k/uL Metamyelocytes # (Man) (0) k/uL ABG Total CO2 (19-24) mmol/L Sodium (137-145) mmol/L Potassium (3.5-5.1) mmol/L Glucose (74-99) mg/dL POC Glucose (mg/dL) 215 H 217 H 213 H (75-99) mg/dL Hemoglobin A1c (4.0-6.0) % Plasma Lactic Acid Chay (0.7-2.0) mmol/L Calcium (8.4-10.2) mg/dL Phosphorus (2.5-4.5) mg/dL 07/06/18 07/06/18 07/06/18 Range/Units 00:08 00:49 01:50 WBC (3.8-10.6) k/uL RBC (4.30-5.90) m/uL Hgb (13.0-17.5) gm/dL Hct (39.0-53.0) % MCV (80.0-100.0) fL MCH (25.0-35.0) pg Neutrophils # (Manual) (1.3-7.7) k/uL Metamyelocytes # (Man) (0) k/uL ABG Total CO2 (19-24) mmol/L Sodium (137-145) mmol/L Potassium (3.5-5.1) mmol/L Glucose (74-99) mg/dL POC Glucose (mg/dL) 220 H 234 H 210 H (75-99) mg/dL Hemoglobin A1c (4.0-6.0) % Plasma Lactic Acid Chay (0.7-2.0) mmol/L Calcium (8.4-10.2) mg/dL Phosphorus (2.5-4.5) mg/dL 07/06/18 07/06/18 07/06/18 Range/Units 02:01 03:03 03:53 WBC (3.8-10.6) k/uL RBC (4.30-5.90) m/uL Hgb (13.0-17.5) gm/dL Hct (39.0-53.0) % MCV (80.0-100.0) fL MCH (25.0-35.0) pg Neutrophils # (Manual) (1.3-7.7) k/uL Metamyelocytes # (Man) (0) k/uL ABG Total CO2 (19-24) mmol/L Sodium (137-145) mmol/L Potassium (3.5-5.1) mmol/L Glucose (74-99) mg/dL POC Glucose (mg/dL) 200 H 180 H 171 H (75-99) mg/dL Hemoglobin A1c (4.0-6.0) % Plasma Lactic Acid Chay (0.7-2.0) mmol/L Calcium (8.4-10.2) mg/dL Phosphorus (2.5-4.5) mg/dL 07/06/18 07/06/18 07/06/18 Range/Units 04:00 04:00 04:52 WBC 27.3 H (3.8-10.6) k/uL RBC 4.08 L (4.30-5.90) m/uL Hgb 9.9 L (13.0-17.5) gm/dL Hct 29.5 L (39.0-53.0) % MCV 72.4 L (80.0-100.0) fL MCH 24.4 L (25.0-35.0) pg Neutrophils # (Manual) 24.50 H (1.3-7.7) k/uL Metamyelocytes # (Man) (0) k/uL ABG Total CO2 (19-24) mmol/L Sodium 135 L (137-145) mmol/L Potassium 3.4 L (3.5-5.1) mmol/L Glucose 159 H (74-99) mg/dL POC Glucose (mg/dL) 141 H (75-99) mg/dL Hemoglobin A1c (4.0-6.0) % Plasma Lactic Acid Chay (0.7-2.0) mmol/L Calcium 6.9 L (8.4-10.2) mg/dL Phosphorus 2.2 L (2.5-4.5) mg/dL 07/06/18 07/06/18 07/06/18 Range/Units 05:59 07:00 10:56 WBC (3.8-10.6) k/uL RBC (4.30-5.90) m/uL Hgb (13.0-17.5) gm/dL Hct (39.0-53.0) % MCV (80.0-100.0) fL MCH (25.0-35.0) pg Neutrophils # (Manual) (1.3-7.7) k/uL Metamyelocytes # (Man) (0) k/uL ABG Total CO2 (19-24) mmol/L Sodium (137-145) mmol/L Potassium (3.5-5.1) mmol/L Glucose (74-99) mg/dL POC Glucose (mg/dL) 138 H 140 H 130 H (75-99) mg/dL Hemoglobin A1c (4.0-6.0) % Plasma Lactic Acid Chay (0.7-2.0) mmol/L Calcium (8.4-10.2) mg/dL Phosphorus (2.5-4.5) mg/dL 07/06/18 Range/Units 12:14 WBC (3.8-10.6) k/uL RBC (4.30-5.90) m/uL Hgb (13.0-17.5) gm/dL Hct (39.0-53.0) % MCV (80.0-100.0) fL MCH (25.0-35.0) pg Neutrophils # (Manual) (1.3-7.7) k/uL Metamyelocytes # (Man) (0) k/uL ABG Total CO2 (19-24) mmol/L Sodium (137-145) mmol/L Potassium (3.5-5.1) mmol/L Glucose (74-99) mg/dL POC Glucose (mg/dL) 120 H (75-99) mg/dL Hemoglobin A1c (4.0-6.0) % Plasma Lactic Acid Chay (0.7-2.0) mmol/L Calcium (8.4-10.2) mg/dL Phosphorus (2.5-4.5) mg/dL Microbiology - Last 24 Hours (Table) 07/05/18 13:31 Gram Stain - Preliminary Abdomen Wound Culture - Preliminary Gram Neg Bacilli 07/04/18 16:06 Blood Culture Gram Stain - Preliminary Blood 07/04/18 22:20 Urine Culture - Final Urine,Catheterized 07/04/18 16:06 Blood Culture - Final Blood 07/04/18 18:30 Urine Culture - Final Urine,Catheterized 07/05/18 13:31 Anaerobic Culture - Preliminary Abdomen 07/05/18 13:31 Fungal Culture - Preliminary Abdomen 07/05/18 00:30 Stool Culture - Preliminary Stool Assessment and Plan Assessment: impression: 1 acute abdominal sepsis secondary to ruptured appendix with peritonitis and lactic acidosis on presentation. Status post exploratory laparotomy and right colectomy, postoperative day #1. 2 acute kidney injury secondary to sepsis and acute tubular necrosis. Improving with fluids and hemodynamic support initially. As well as sodium bicarb upon presentation to 3 recurrent episodes of syncope since secondary to sepsis and hypotension. Resolved 4 history of type 2 diabetes 5 history of hypertension 6 history of seizure disorder 7 history of supraventricular tachycardia. Recommendation: Continue antibiotics, incentive spirometry, early ambulation, patient could be considered for transfer out of the ICU to a surgical floor if agreeable by surgery on the case. His antibiotics are being addressed by infectious disease, we'll continue to follow. Time with Patient: Less than 30
--- NOTE | 2018-07-06 13:10 | P.CONS ---
History of Present Illness - History of Present Illness This is a pleasant 43 years old male with past medical history of diabetes me llitus, hypertension, seizure disorder, supraventricular tachycardia. Came originally on 07/04/2018 4 feeling lethargic with Palpitation. EKG Showed Supraventricular Tachycardia That Was not been complicated initially. Patient also was complaining from abdominal discomfort. On the presentation his WBC was 11.6, went up to 31.1 hemoglobin 10.3, down from 12.1, currently creatinine is 1.1, he has lactic acid on the presentation 2.4 and 2.9. Liver enzymes are normal limits including AST and ALT. He had CAT scan of the abdomen which showed abdominal abscess with ruptured appendix. Surgical team has been consulted and patient underwent exploratory laparotomy with right colectomy. And drainage of the retroperitoneal abscess. Today is postop day #0. Patient has been evaluated by infectious disease also, he was treated with Zosyn and IV vancomycin. Upon ID recommendation. His his worsening kidney function to present acute kidney injury secondary to sepsis and acute tubular necrosis. Review of systems: Not applicable Medication: Tylenol, Pepcid, Dilaudid, NovoLog, Reglan, morphine sulfate, Zofran, Protonix, Zosyn, vancomycin Past Medical History Past Medical History: Diabetes Mellitus, Hypertension, Seizure Disorder, Supraventricular Tachycardia (SVT) Additional Past Medical History / Comment(s): last seizure 2.5yrs ago History of Any Multi-Drug Resistant Organisms: None Reported Past Surgical History: Hernia Repair, Orthopedic Surgery, Tonsillectomy Additional Past Surgical History / Comment(s): right knee sx, upper palate reconstruction for sleep apnea Past Anesthesia/Blood Transfusion Reactions: No Reported Reaction Past Psychological History: Bipolar, Depression, Schizophrenia Additional Psychological History / Comment(s): no current thoughts of harming self. Smoking Status: Former smoker Past Alcohol Use History: None Reported Additional Past Alcohol Use History / Comment(s): Patient was a smoker one pack per day of cigarettes for 5 years and quit in 1992. He does smoke marijuana occasionally. He denies any illicit drug use or alcohol use. He lives with his son and a roommate and recently moved to [facility] 4 years ago. He is on disability due to mental health illness with bipolar disorder. He worked in the past in [employer]. He denies any travel, no service. Past Drug Use History: Marijuana Additional Drug Use History / Comment(s): Current marijuana smoker. - Past Family History Mother Family Medical History: Diabetes Mellitus Additional Family Medical History / Comment(s): CHF Medications and Allergies Home Medications Medication Instructions Recorded Confirmed Type Insulin Glargine [Lantus] 50 units SQ HS 03/23/15 07/04/18 History Atorvastatin Calcium [Lipitor] 20 mg PO HS 09/14/16 07/04/18 History DULoxetine HCL [Cymbalta] 60 mg PO DAILY 09/14/16 07/04/18 History metFORMIN HCL [Glucophage] 850 mg PO TID 09/14/16 07/04/18 History Atenolol 25 mg PO DAILY 07/04/18 07/04/18 History DULoxetine HCL [Cymbalta] 30 mg PO DAILY 07/04/18 07/04/18 History Divalproex [Depakote] 250 mg PO HS 07/04/18 07/04/18 History Lisinopril [Zestril] 10 mg PO DAILY 07/04/18 07/04/18 History Vortioxetine Hydrobromide 10 mg PO DAILY 07/04/18 07/04/18 History [Trintellix] Allergies Allergy/AdvReac Type Severity Reaction Status Date / Time carbamazepine [From Tegretol] Allergy Severe Anaphylaxis Verified 07/04/18 17:02 lithium [[place]] Allergy Severe Anaphylaxis Verified 07/04/18 17:02 shellfish derived Allergy Severe Anaphylaxis Verified 07/04/18 17:02 aspartame Allergy Unknown Verified 07/04/18 17:02 citalopram hydrobromide AdvReac Intermediate Nausea & Verified 07/04/18 17:02 [From Celexa] Vomiting Physical Exam Vitals: Vital Signs Temp Pulse Resp BP Pulse Ox 07/05/18 18:00 109 H 16 129/86 96 07/05/18 17:00 103 H 15 124/81 95 07/05/18 16:00 110 H 25 H 128/82 97 07/05/18 15:00 112 H 17 143/86 96 07/05/18 14:00 98.4 F 109 H 22 117/86 07/05/18 12:00 99.2 F 118/72 07/05/18 11:00 93 26 H 126/77 95 07/05/18 10:00 92 32 H 119/86 94 L 07/05/18 09:00 92 22 115/76 94 L 07/05/18 08:00 98.5 F 90 26 H 118/75 95 07/05/18 07:00 94 25 H 120/74 94 L 07/05/18 06:00 95 31 H 112/72 94 L 07/05/18 05:00 96 29 H 109/75 94 L 07/05/18 04:00 97.8 F 96 29 H 100/73 94 L 07/05/18 03:00 101 H 31 H 101/65 94 L 07/05/18 02:00 110 H 31 H 108/62 93 L 07/05/18 01:00 117 H 46 H 102/51 93 L 07/05/18 00:00 100.9 F H 125 H 31 H 118/70 92 L 07/04/18 23:22 124 H 48 H 91/50 91 L 07/04/18 23:00 124 H 51 H 91/50 94 L 07/04/18 22:00 98.0 F 124 H 44 H 128/60 93 L 07/04/18 21:00 120 H 44 H 120/56 95 07/04/18 20:50 120 H 42 H 120/56 96 07/04/18 20:40 120 H 10 L 120/56 95 07/04/18 20:35 97 07/04/18 20:30 120 H 16 115/69 97 07/04/18 20:20 118 H 33 H 115/69 97 07/04/18 20:10 120 H 29 H 115/69 97 07/04/18 20:00 120 H 30 H 111/45 98 07/04/18 19:50 100.2 F H 117 H 23 111/45 96 07/04/18 19:22 99.3 F 118 H 26 H 117/56 94 L 07/04/18 19:20 118 H 26 H 117/56 91 L 07/04/18 19:10 121 H 39 H 94/82 97 07/04/18 19:00 121 H 31 H 07/04/18 18:50 124 H 43 H 07/04/18 18:40 124 H 16 101/61 07/04/18 18:36 125 H 20 101/61 95 Intake and Output 07/05/18 07/05/18 07/05/18 06:59 14:59 22:59 Intake Total 2300 2725 800 Output Total 700 2025 550 Balance 1600 700 250 Intake: IV 2300 2725 800 ACETAMINOPHEN IV (For NPO 100 ) 1,000 mg In Empty Bag 1 bag @ 400 mls/hr IVPB Q6HR PRN Rx#:[id number] Dextrose 5% in Water 1, 800 700 400 000 ml @ 100 mls/hr IV . [id number] BRANDIE with Sodium Bicarb (1 Meq/ml) 150 ml Rx#:[id number] Magnesium Sulfate-D5w Pmx 100 300 1 gm In Dextrose/Water 1 100ml.bag @ 100 mls/hr IVPB Q1H [facility] Rx#: [id number] Piperacillin-Tazobactam 3 100 100 .375 gm In Sodium Chloride 0.9% 100 ml @ 25 mls/hr IVPB Q8HR [facility] Rx# :[id number] Potassium Chloride 10 meq 200 100 In Water For Injection 1 100ml.bag @ 100 mls/hr IVPB Q1H [facility] Rx#: [id number] Sodium Chloride 0.9% 1, 600 525 300 000 ml @ 75 mls/hr IV . [id number] [facility] Rx#:[id number] Vancomycin 2,000 mg In 500 Sodium Chloride 0.9% 500 ml 500 ml @ 167 mls/hr IVPB Q12H [facility] Rx#: [id number] Output: Urine 700 1825 550 Estimated Blood Loss 200 Other: Voiding Method Indwelling Catheter Indwelling Catheter Indwelling Catheter Weight 140.4 kg GENERAL: The patient is alert and oriented x3, obese HEENT: Pupils are round and equally reacting to light. EOMI. No scleral icterus. No conjunctival pallor. Normocephalic, atraumatic. No pharyngeal erythema. No thyromegaly. CARDIOVASCULAR: S1 and S2 present. No murmurs, rubs, or gallops. PULMONARY: Chest is clear to auscultation, no wheezing or crackles. -ABDOMEN: Soft, nontender, nondistended, normoactive bowel sounds. No palpable organomegaly. midline incision is closed with shawna is in a Place. MUSCULOSKELETAL: No joint swelling or deformity. EXTREMITIES: No cyanosis, clubbing, or pedal edema. NEUROLOGICAL: Gross neurological examination did not reveal any focal deficits. SKIN: No rashes. Results CBC & Chem 7: 07/06/18 04:00 07/06/18 04:00 Labs: Abnormal Lab Results - Last 24 Hours (Table) 07/04/18 07/04/18 07/04/18 Range/Units 17:45 19:41 20:45 WBC (3.8-10.6) k/uL RBC (4.30-5.90) m/uL Hgb (13.0-17.5) gm/dL Hct (39.0-53.0) % MCV (80.0-100.0) fL MCH (25.0-35.0) pg Neutrophils # (Manual) (1.3-7.7) k/uL Lymphocytes # (Manual) (1.0-4.8) k/uL Monocytes # (Manual) (0-1.0) k/uL Metamyelocytes # (Man) (0) k/uL PT (9.0-12.0) sec INR (<1.2) ABG pCO2 18 L* (35-45) mmHg ABG Total CO2 (19-24) mmol/L Sodium (137-145) mmol/L Creatinine (0.66-1.25) mg/dL Glucose (74-99) mg/dL POC Glucose (mg/dL) 198 H (75-99) mg/dL Hemoglobin A1c (4.0-6.0) % Plasma Lactic Acid Chay 3.9 H* (0.7-2.0) mmol/L Calcium (8.4-10.2) mg/dL Phosphorus (2.5-4.5) mg/dL Magnesium (1.6-2.3) mg/dL Urine Protein (Negative) Urine Glucose (UA) (Negative) Urine Ketones (Negative) Urine Blood (Negative) Ur Leukocyte Esterase (Negative) Urine RBC (0-5) /hpf Urine WBC (0-5) /hpf Urine WBC Clumps (None) /hpf Urine Bacteria (None) /hpf Urine Mucus (None) /hpf 07/04/18 07/05/18 07/05/18 Range/Units 22:20 00:22 05:05 WBC 36.8 H (3.8-10.6) k/uL RBC 4.04 L (4.30-5.90) m/uL Hgb 9.9 L D (13.0-17.5) gm/dL Hct 30.1 L (39.0-53.0) % MCV 74.4 L (80.0-100.0) fL MCH 24.6 L (25.0-35.0) pg Neutrophils # (Manual) 33.80 H (1.3-7.7) k/uL Lymphocytes # (Manual) 0.74 L (1.0-4.8) k/uL Monocytes # (Manual) 2.21 H (0-1.0) k/uL Metamyelocytes # (Man) 0.74 H (0) k/uL PT (9.0-12.0) sec INR (<1.2) ABG pCO2 (35-45) mmHg ABG Total CO2 (19-24) mmol/L Sodium (137-145) mmol/L Creatinine (0.66-1.25) mg/dL Glucose (74-99) mg/dL POC Glucose (mg/dL) 229 H (75-99) mg/dL Hemoglobin A1c (4.0-6.0) % Plasma Lactic Acid Chay (0.7-2.0) mmol/L Calcium (8.4-10.2) mg/dL Phosphorus (2.5-4.5) mg/dL Magnesium (1.6-2.3) mg/dL Urine Protein 2+ H (Negative) Urine Glucose (UA) 2+ H (Negative) Urine Ketones Trace H (Negative) Urine Blood Moderate H (Negative) Ur Leukocyte Esterase Trace H (Negative) Urine RBC 11 H (0-5) /hpf Urine WBC 28 H (0-5) /hpf Urine WBC Clumps Many H (None) /hpf Urine Bacteria Moderate H (None) /hpf Urine Mucus Rare H (None) /hpf 07/05/18 07/05/18 07/05/18 Range/Units 05:05 05:05 05:05 WBC (3.8-10.6) k/uL RBC (4.30-5.90) m/uL Hgb (13.0-17.5) gm/dL Hct (39.0-53.0) % MCV (80.0-100.0) fL MCH (25.0-35.0) pg Neutrophils # (Manual) (1.3-7.7) k/uL Lymphocytes # (Manual) (1.0-4.8) k/uL Monocytes # (Manual) (0-1.0) k/uL Metamyelocytes # (Man) (0) k/uL PT 13.6 H (9.0-12.0) sec INR 1.3 H (<1.2) ABG pCO2 (35-45) mmHg ABG Total CO2 (19-24) mmol/L Sodium 132 L (137-145) mmol/L Creatinine 1.50 H (0.66-1.25) mg/dL Glucose 234 H (74-99) mg/dL POC Glucose (mg/dL) (75-99) mg/dL Hemoglobin A1c 8.2 H (4.0-6.0) % Plasma Lactic Acid Chay (0.7-2.0) mmol/L Calcium 7.5 L (8.4-10.2) mg/dL Phosphorus 4.6 H (2.5-4.5) mg/dL Magnesium 0.9 L* (1.6-2.3) mg/dL Urine Protein (Negative) Urine Glucose (UA) (Negative) Urine Ketones (Negative) Urine Blood (Negative) Ur Leukocyte Esterase (Negative) Urine RBC (0-5) /hpf Urine WBC (0-5) /hpf Urine WBC Clumps (None) /hpf Urine Bacteria (None) /hpf Urine Mucus (None) /hpf 07/05/18 07/05/18 07/05/18 Range/Units 05:15 07:20 14:42 WBC (3.8-10.6) k/uL RBC (4.30-5.90) m/uL Hgb (13.0-17.5) gm/dL Hct (39.0-53.0) % MCV (80.0-100.0) fL MCH (25.0-35.0) pg Neutrophils # (Manual) (1.3-7.7) k/uL Lymphocytes # (Manual) (1.0-4.8) k/uL Monocytes # (Manual) (0-1.0) k/uL Metamyelocytes # (Man) (0) k/uL PT (9.0-12.0) sec INR (<1.2) ABG pCO2 (35-45) mmHg ABG Total CO2 (19-24) mmol/L Sodium (137-145) mmol/L Creatinine (0.66-1.25) mg/dL Glucose (74-99) mg/dL POC Glucose (mg/dL) 251 H 317 H (75-99) mg/dL Hemoglobin A1c (4.0-6.0) % Plasma Lactic Acid Chay 2.4 H* (0.7-2.0) mmol/L Calcium (8.4-10.2) mg/dL Phosphorus (2.5-4.5) mg/dL Magnesium (1.6-2.3) mg/dL Urine Protein (Negative) Urine Glucose (UA) (Negative) Urine Ketones (Negative) Urine Blood (Negative) Ur Leukocyte Esterase (Negative) Urine RBC (0-5) /hpf Urine WBC (0-5) /hpf Urine WBC Clumps (None) /hpf Urine Bacteria (None) /hpf Urine Mucus (None) /hpf 07/05/18 07/05/18 07/05/18 Range/Units 15:33 15:42 15:42 WBC 31.1 H (3.8-10.6) k/uL RBC (4.30-5.90) m/uL Hgb 10.3 L (13.0-17.5) gm/dL Hct 31.8 L (39.0-53.0) % MCV 73.6 L (80.0-100.0) fL MCH 23.7 L (25.0-35.0) pg Neutrophils # (Manual) 29.20 H (1.3-7.7) k/uL Lymphocytes # (Manual) (1.0-4.8) k/uL Monocytes # (Manual) (0-1.0) k/uL Metamyelocytes # (Man) 0.31 H (0) k/uL PT (9.0-12.0) sec INR (<1.2) ABG pCO2 (35-45) mmHg ABG Total CO2 26 H (19-24) mmol/L Sodium (137-145) mmol/L Creatinine (0.66-1.25) mg/dL Glucose (74-99) mg/dL POC Glucose (mg/dL) (75-99) mg/dL Hemoglobin A1c (4.0-6.0) % Plasma Lactic Acid Chay 2.9 H* (0.7-2.0) mmol/L Calcium (8.4-10.2) mg/dL Phosphorus (2.5-4.5) mg/dL Magnesium (1.6-2.3) mg/dL Urine Protein (Negative) Urine Glucose (UA) (Negative) Urine Ketones (Negative) Urine Blood (Negative) Ur Leukocyte Esterase (Negative) Urine RBC (0-5) /hpf Urine WBC (0-5) /hpf Urine WBC Clumps (None) /hpf Urine Bacteria (None) /hpf Urine Mucus (None) /hpf 07/05/18 07/05/18 Range/Units 15:42 15:47 WBC (3.8-10.6) k/uL RBC (4.30-5.90) m/uL Hgb (13.0-17.5) gm/dL Hct (39.0-53.0) % MCV (80.0-100.0) fL MCH (25.0-35.0) pg Neutrophils # (Manual) (1.3-7.7) k/uL Lymphocytes # (Manual) (1.0-4.8) k/uL Monocytes # (Manual) (0-1.0) k/uL Metamyelocytes # (Man) (0) k/uL PT (9.0-12.0) sec INR (<1.2) ABG pCO2 (35-45) mmHg ABG Total CO2 (19-24) mmol/L Sodium 134 L (137-145) mmol/L Creatinine (0.66-1.25) mg/dL Glucose 289 H (74-99) mg/dL POC Glucose (mg/dL) 315 H (75-99) mg/dL Hemoglobin A1c (4.0-6.0) % Plasma Lactic Acid Chay (0.7-2.0) mmol/L Calcium 7.3 L (8.4-10.2) mg/dL Phosphorus (2.5-4.5) mg/dL Magnesium (1.6-2.3) mg/dL Urine Protein (Negative) Urine Glucose (UA) (Negative) Urine Ketones (Negative) Urine Blood (Negative) Ur Leukocyte Esterase (Negative) Urine RBC (0-5) /hpf Urine WBC (0-5) /hpf Urine WBC Clumps (None) /hpf Urine Bacteria (None) /hpf Urine Mucus (None) /hpf Microbiology - Last 24 Hours (Table) 07/04/18 16:06 Blood Culture - Preliminary Blood No Growth after 24 hours 07/05/18 00:30 Stool Culture - Preliminary Stool 07/04/18 22:20 Urine Culture - Preliminary Urine,Catheterized 07/04/18 18:30 Urine Culture - Preliminary Urine,Catheterized Assessment and Plan Assessment: Ruptured appendix with intra-abdominal abscess Severe sepsis secondary to above Patient is status post exploratory laparotomy and right colectomy History of diabetes mellitus History of hypertension History of seizure disorder Supraventricular tachycardia Plan: This is a 43 years old male who presents with sepsis secondary to ruptured appendicitis, status post right colectomy. Patient has been followed by several consultants including surgery, critical care team, infectious disease team. C ontinue with the same antibiotics as per ID team recommendation. Continue pain management. Labs and medication were reviewed.. Continue same treatment. Continue with symptomatic treatment. Resume home medication. Monitor lytes and vitals. DVT and GI prophylaxis. Further recommendations of the clinical course of the patient DVT prophylaxis: no heparin for now. GI Prophylaxis: Ppi Prognosis is guarded
--- NOTE | 2018-07-06 13:14 | P.PN ---
Subjective This is a pleasant 43 years old male with past medical history of diabetes mellitus, hypertension, seizure disorder, supraventricular tachycardia. Came originally on 07/04/2018 for feeling lethargic with Palpitation. EKG Showed Supraventricular Tachycardia That Was not been complicated initially. Patient also was complaining from abdominal discomfort. On the presentation his WBC was 11.6, went up to 31.1 hemoglobin 10.3, down from 12.1, currently creatinine is 1.1, he has lactic acid on the presentation 2.4 and 2.9. Liver enzymes are nor mal limits including AST and ALT. He had CAT scan of the abdomen which showed abdominal abscess with ruptured appendix. Surgical team has been consulted and patient underwent exploratory laparotomy with right colectomy. And drainage of the retroperitoneal abscess. Today is postop day #0. Patient has been evaluated by infectious disease also, he was treated with Zosyn and IV vancomycin. Upon ID recommendation. His his worsening kidney function to present acute kidney injury secondary to sepsis and acute tubular necrosis. 07/06/2018 patient is a status post right colectomy for ruptured appendicitis. Today is postop day #1. Patient abdominal pain is controlled. He remains in the ICU. He still nothing by mouth. He is passing gases only but no bowel movement. He denies chest pain or dyspnea.vitals were reviewed, patient is tachycardic and tachypneic. However his blood pressure is controlled and he is saturating 97% on 4 L of oxygen.WBC is 27.3K. Sugar controlled, with mild hypokalemia.he was placed on normal saline 125 mL/h Objective - Vital Signs Vital signs: Vital Signs Temp 97.9 F 07/06/18 10:00 Pulse 112 H 07/06/18 11:00 Resp 21 07/06/18 11:00 BP 133/84 07/06/18 11:00 Pulse Ox 97 07/06/18 11:00 Intake & Output 07/05/18 07/06/18 07/06/18 18:59 06:59 18:59 Intake Total 3525 4232.148 661.038 Output Total 2575 1550 375 Balance 950 2682.148 286.038 Weight 146.3 kg Intake: IV 3525 4150 625 D5-0.45% NaCl with KCl 750 20Meq/l 1,000 ml @ 125 mls/hr IV .Q8H [facility] Rx#: [id number] Dextrose 5% in Water 1, 1100 700 000 ml @ 100 mls/hr IV . [id number] BRANDIE with Sodium Bicarb (1 Meq/ml) 150 ml Rx#:[id number] Magnesium Sulfate-D5w Pmx 300 400 1 gm In Dextrose/Water 1 100ml.bag @ 100 mls/hr IVPB Q1H [facility] Rx#: [id number] Piperacillin-Tazobactam 3 200 .375 gm In Sodium Chloride 0.9% 100 ml @ 25 mls/hr IVPB Q8HR [facility] Rx# :[id number] Potassium Chloride 10 meq 100 In Water For Injection 1 100ml.bag @ 100 mls/hr IVPB Q1H [facility] Rx#: [id number] Potassium Chloride 20 meq 100 In Water For Injection 1 100ml.bag @ 50 mls/hr IVPB Q2H [facility] Rx#: [id number] Sodium Chloride 0.9% 1, 825 1200 625 000 ml @ 75 mls/hr IV . [id number] [facility] Rx#:[id number] Vancomycin 2,000 mg In 1000 Sodium Chloride 0.9% 500 ml 500 ml @ 167 mls/hr IVPB Q12H [facility] Rx#: [id number] Intake, IV Titration 82.148 36.038 Amount Insulin Regular 100 unit 82.148 36.038 In Sodium Chloride 0.9% 100 ml @ Per Protocol IV .Q0M [facility] Rx#:[id number] Output: Urine 2375 1550 375 Estimated Blood Loss 200 Other: Voiding Method Indwelling Catheter Indwelling Catheter - Exam GENERAL: The patient is alert and oriented x3, obese HEENT: Pupils are round and equally reacting to light. EOMI. No scleral icterus. No conjunctival pallor. Normocephalic, atraumatic. No pharyngeal erythema. No thyromegaly. CARDIOVASCULAR: S1 and S2 present. No murmurs, rubs, or gallops. PULMONARY: Chest is clear to auscultation, no wheezing or crackles. -ABDOMEN: Soft, nontender, nondistended, normoactive bowel sounds. No palpable organomegaly. midline incision is closed with shawna is in a Place. MUSCULOSKELETAL: No joint swelling or deformity. EXTREMITIES: No cyanosis, clubbing, or pedal edema. NEUROLOGICAL: Gross neurological examination did not reveal any focal deficits. SKIN: No rashes. - Labs CBC & Chem 7: 07/06/18 04:00 07/06/18 04:00 Labs: Abnormal Lab Results - Last 24 Hours (Table) 07/05/18 07/05/18 07/05/18 Range/Units 05:05 14:42 15:33 WBC (3.8-10.6) k/uL RBC (4.30-5.90) m/uL Hgb (13.0-17.5) gm/dL Hct (39.0-53.0) % MCV (80.0-100.0) fL MCH (25.0-35.0) pg Neutrophils # (Manual) (1.3-7.7) k/uL Metamyelocytes # (Man) (0) k/uL ABG Total CO2 26 H (19-24) mmol/L Sodium (137-145) mmol/L Potassium (3.5-5.1) mmol/L Glucose (74-99) mg/dL POC Glucose (mg/dL) 317 H (75-99) mg/dL Hemoglobin A1c 8.2 H (4.0-6.0) % Plasma Lactic Acid Chay (0.7-2.0) mmol/L Calcium (8.4-10.2) mg/dL Phosphorus (2.5-4.5) mg/dL 07/05/18 07/05/18 07/05/18 Range/Units 15:42 15:42 15:42 WBC 31.1 H (3.8-10.6) k/uL RBC (4.30-5.90) m/uL Hgb 10.3 L (13.0-17.5) gm/dL Hct 31.8 L (39.0-53.0) % MCV 73.6 L (80.0-100.0) fL MCH 23.7 L (25.0-35.0) pg Neutrophils # (Manual) 29.20 H (1.3-7.7) k/uL Metamyelocytes # (Man) 0.31 H (0) k/uL ABG Total CO2 (19-24) mmol/L Sodium 134 L (137-145) mmol/L Potassium (3.5-5.1) mmol/L Glucose 289 H (74-99) mg/dL POC Glucose (mg/dL) (75-99) mg/dL Hemoglobin A1c (4.0-6.0) % Plasma Lactic Acid Chay 2.9 H* (0.7-2.0) mmol/L Calcium 7.3 L (8.4-10.2) mg/dL Phosphorus (2.5-4.5) mg/dL 07/05/18 07/05/18 07/05/18 Range/Units 15:47 18:28 20:05 WBC (3.8-10.6) k/uL RBC (4.30-5.90) m/uL Hgb (13.0-17.5) gm/dL Hct (39.0-53.0) % MCV (80.0-100.0) fL MCH (25.0-35.0) pg Neutrophils # (Manual) (1.3-7.7) k/uL Metamyelocytes # (Man) (0) k/uL ABG Total CO2 (19-24) mmol/L Sodium (137-145) mmol/L Potassium (3.5-5.1) mmol/L Glucose (74-99) mg/dL POC Glucose (mg/dL) 315 H 286 H 243 H (75-99) mg/dL Hemoglobin A1c (4.0-6.0) % Plasma Lactic Acid Chay (0.7-2.0) mmol/L Calcium (8.4-10.2) mg/dL Phosphorus (2.5-4.5) mg/dL 07/05/18 07/05/18 07/05/18 Range/Units 20:59 21:49 22:51 WBC (3.8-10.6) k/uL RBC (4.30-5.90) m/uL Hgb (13.0-17.5) gm/dL Hct (39.0-53.0) % MCV (80.0-100.0) fL MCH (25.0-35.0) pg Neutrophils # (Manual) (1.3-7.7) k/uL Metamyelocytes # (Man) (0) k/uL ABG Total CO2 (19-24) mmol/L Sodium (137-145) mmol/L Potassium (3.5-5.1) mmol/L Glucose (74-99) mg/dL POC Glucose (mg/dL) 215 H 217 H 213 H (75-99) mg/dL Hemoglobin A1c (4.0-6.0) % Plasma Lactic Acid Chay (0.7-2.0) mmol/L Calcium (8.4-10.2) mg/dL Phosphorus (2.5-4.5) mg/dL 07/06/18 07/06/18 07/06/18 Range/Units 00:08 00:49 01:50 WBC (3.8-10.6) k/uL RBC (4.30-5.90) m/uL Hgb (13.0-17.5) gm/dL Hct (39.0-53.0) % MCV (80.0-100.0) fL MCH (25.0-35.0) pg Neutrophils # (Manual) (1.3-7.7) k/uL Metamyelocytes # (Man) (0) k/uL ABG Total CO2 (19-24) mmol/L Sodium (137-145) mmol/L Potassium (3.5-5.1) mmol/L Glucose (74-99) mg/dL POC Glucose (mg/dL) 220 H 234 H 210 H (75-99) mg/dL Hemoglobin A1c (4.0-6.0) % Plasma Lactic Acid Chay (0.7-2.0) mmol/L Calcium (8.4-10.2) mg/dL Phosphorus (2.5-4.5) mg/dL 07/06/18 07/06/18 07/06/18 Range/Units 02:01 03:03 03:53 WBC (3.8-10.6) k/uL RBC (4.30-5.90) m/uL Hgb (13.0-17.5) gm/dL Hct (39.0-53.0) % MCV (80.0-100.0) fL MCH (25.0-35.0) pg Neutrophils # (Manual) (1.3-7.7) k/uL Metamyelocytes # (Man) (0) k/uL ABG Total CO2 (19-24) mmol/L Sodium (137-145) mmol/L Potassium (3.5-5.1) mmol/L Glucose (74-99) mg/dL POC Glucose (mg/dL) 200 H 180 H 171 H (75-99) mg/dL Hemoglobin A1c (4.0-6.0) % Plasma Lactic Acid Chay (0.7-2.0) mmol/L Calcium (8.4-10.2) mg/dL Phosphorus (2.5-4.5) mg/dL 07/06/18 07/06/18 07/06/18 Range/Units 04:00 04:00 04:52 WBC 27.3 H (3.8-10.6) k/uL RBC 4.08 L (4.30-5.90) m/uL Hgb 9.9 L (13.0-17.5) gm/dL Hct 29.5 L (39.0-53.0) % MCV 72.4 L (80.0-100.0) fL MCH 24.4 L (25.0-35.0) pg Neutrophils # (Manual) 24.50 H (1.3-7.7) k/uL Metamyelocytes # (Man) (0) k/uL ABG Total CO2 (19-24) mmol/L Sodium 135 L (137-145) mmol/L Potassium 3.4 L (3.5-5.1) mmol/L Glucose 159 H (74-99) mg/dL POC Glucose (mg/dL) 141 H (75-99) mg/dL Hemoglobin A1c (4.0-6.0) % Plasma Lactic Acid Chay (0.7-2.0) mmol/L Calcium 6.9 L (8.4-10.2) mg/dL Phosphorus 2.2 L (2.5-4.5) mg/dL 07/06/18 07/06/18 07/06/18 Range/Units 05:59 07:00 10:56 WBC (3.8-10.6) k/uL RBC (4.30-5.90) m/uL Hgb (13.0-17.5) gm/dL Hct (39.0-53.0) % MCV (80.0-100.0) fL MCH (25.0-35.0) pg Neutrophils # (Manual) (1.3-7.7) k/uL Metamyelocytes # (Man) (0) k/uL ABG Total CO2 (19-24) mmol/L Sodium (137-145) mmol/L Potassium (3.5-5.1) mmol/L Glucose (74-99) mg/dL POC Glucose (mg/dL) 138 H 140 H 130 H (75-99) mg/dL Hemoglobin A1c (4.0-6.0) % Plasma Lactic Acid Chay (0.7-2.0) mmol/L Calcium (8.4-10.2) mg/dL Phosphorus (2.5-4.5) mg/dL 07/06/18 Range/Units 12:14 WBC (3.8-10.6) k/uL RBC (4.30-5.90) m/uL Hgb (13.0-17.5) gm/dL Hct (39.0-53.0) % MCV (80.0-100.0) fL MCH (25.0-35.0) pg Neutrophils # (Manual) (1.3-7.7) k/uL Metamyelocytes # (Man) (0) k/uL ABG Total CO2 (19-24) mmol/L Sodium (137-145) mmol/L Potassium (3.5-5.1) mmol/L Glucose (74-99) mg/dL POC Glucose (mg/dL) 120 H (75-99) mg/dL Hemoglobin A1c (4.0-6.0) % Plasma Lactic Acid Chay (0.7-2.0) mmol/L Calcium (8.4-10.2) mg/dL Phosphorus (2.5-4.5) mg/dL Microbiology - Last 24 Hours (Table) 07/05/18 13:31 Gram Stain - Preliminary Abdomen Wound Culture - Preliminary Gram Neg Bacilli 07/04/18 16:06 Blood Culture Gram Stain - Preliminary Blood 07/04/18 22:20 Urine Culture - Final Urine,Catheterized 07/04/18 16:06 Blood Culture - Final Blood 07/04/18 18:30 Urine Culture - Final Urine,Catheterized 07/05/18 13:31 Anaerobic Culture - Preliminary Abdomen 07/05/18 13:31 Fungal Culture - Preliminary Abdomen 07/05/18 00:30 Stool Culture - Preliminary Stool Assessment and Plan Assessment: Ruptured appendix with intra-abdominal abscess Severe sepsis secondary to above Patient is status post exploratory laparotomy and right colectomy History of diabetes mellitus History of hypertension History of seizure disorder Supraventricular tachycardia Plan: This is a 43 years old male who presents with sepsis secondary to ruptured appendicitis, status post right colectomy. Patient has been followed by several consultants including surgery, critical care team, infectious disease team. Continue with the same antibiotics as per ID team recommendation. Continue pain management. Labs and medication were reviewed.. Continue same treatment. Continue with symptomatic treatment. Resume home medication. Monitor lytes and vitals. DVT and GI prophylaxis. Further recommendations of the clinical course of the patient DVT prophylaxis: no heparin for now. GI Prophylaxis: Ppi Prognosis is guarded
[2018-07-06 13:15] LABS: Glucose,Whole Blood 126 mg/dL (75-99)
[2018-07-06 14:16] LABS: Glucose,Whole Blood 116 mg/dL (75-99)
[2018-07-06 15:24] LABS: Glucose,Whole Blood 117 mg/dL (75-99)
[2018-07-06 17:06] LABS: Glucose,Whole Blood 114 mg/dL (75-99)
[2018-07-06 18:14] LABS: Glucose,Whole Blood 132 mg/dL (75-99)
[2018-07-06 19:46] LABS: Glucose,Whole Blood 128 mg/dL (75-99)
[2018-07-06 20:32] LABS: Glucose,Whole Blood 128 mg/dL (75-99)
[2018-07-06 21:16] LABS: Glucose,Whole Blood 125 mg/dL (75-99)
[2018-07-06 22:29] LABS: Glucose,Whole Blood 138 mg/dL (75-99)
--- NOTE | 2018-07-06 23:04 | P.PN ---
Subjective Progress Note Date: 07/06/18 This is a 43-year-old male who gives history of having an uncomfortable feeling in his abdomen but no real pain for the past week as well as fever and chills and diarrhea. Pain was in the right middle abdomen. He states he was feeling lightheaded ended up passing out hitting his face on the ground and his son made him come into the hospital for evaluation. Patient was found to have a temperature of 101.6, tachycardia, blood pressure was stable at 139/55, pulse ox 96 on 2 L. White count initially 11.6 and now at 36.8, hemoglobin 9.9, Pletal count 341. Creatinine 1.31 with repeat of 1.5. Magnesium 0.9, CO2 14, lactic acid 9.7. Influenza testing was negative. Total bilirubin 1.5, alkaline phosphatase 365, albumin 2.8. Urinalysis showed some blood and white cells. Blood cultures status received as well as urine culture. CAT scan of the chest abdomen and pelvis showed appendix with rupture. Chest x-ray patchy medial basilar atelectasis and or developing pneumonia. Patient w as given a dose of cefepime and vancomycin, continued on vancomycin and admitted into the intensive care unit. He has been on sodium bicarb drip, Sorensen catheter has been placed. He has not required vasopressors. Surgery is scheduled for today. Patient is a [id number] diabetic and he states his last physical when A1c was 7.2. 07/06/2018 patient is now considerably improved from the last evaluation. He is now been extubated. Sitting upright is history comfortable. Lasix his abdom inal pain is under quite good control. Denies other new acute complaints at this time. Objective - Vital Signs Vital signs: Vital Signs Temp 97.9 F 07/06/18 20:00 Pulse 113 H 07/06/18 20:00 Resp 23 07/06/18 20:00 BP 131/79 07/06/18 20:00 Pulse Ox 98 07/06/18 20:00 Intake & Output 07/06/18 07/06/18 07/07/18 06:59 18:59 06:59 Intake Total 4232.148 2230.237 317.17 Output Total 1550 960 230 Balance 2682.148 1270.237 87.17 Weight 146.3 kg Intake: IV 4150 2175 300 D5-0.45% NaCl with KCl 750 20Meq/l 1,000 ml @ 125 mls/hr IV .Q8H [facility] Rx#: [id number] Dextrose 5% in Water 1, 700 000 ml @ 100 mls/hr IV . [id number] BRANDIE with Sodium Bicarb (1 Meq/ml) 150 ml Rx#:[id number] Magnesium Sulfate-D5w Pmx 400 1 gm In Dextrose/Water 1 100ml.bag @ 100 mls/hr IVPB Q1H [facility] Rx#: [id number] Piperacillin-Tazobactam 3 100 50 .375 gm In Sodium Chloride 0.9% 100 ml @ 25 mls/hr IVPB Q8HR [facility] Rx# :[id number] Potassium Chloride 20 meq 100 100 In Water For Injection 1 100ml.bag @ 50 mls/hr IVPB Q2H [facility] Rx#: [id number] Sodium Chloride 0.9% 1, 1200 1375 250 000 ml @ 75 mls/hr IV . [id number] [facility] Rx#:[id number] Sodium Phosphate 10 mmol 100 In Sodium Chloride 0.9% 100 ml @ 50 mls/hr IVPB ONCE ONE Rx#:[id number] Vancomycin 2,000 mg In 1000 500 Sodium Chloride 0.9% 500 ml 500 ml @ 167 mls/hr IVPB Q12H [facility] Rx#: [id number] Intake, IV Titration 82.148 55.237 17.17 Amount Insulin Regular 100 unit 82.148 55.237 17.17 In Sodium Chloride 0.9% 100 ml @ Per Protocol IV .Q0M [facility] Rx#:[id number] Output: Drainage 60 80 Right Lower Abdomen 60 80 Urine 1550 900 150 Other: Voiding Method Indwelling Catheter Indwelling Catheter - Exam Gen: This is a morbidly obese 43-year-old male. He is resting in the ICU bed and appears to be comfortable and in no acute distress. Was extubated later yesterday after his surgical intervention HEENT: Head is atraumatic, normocephalic. Pupils equal, round. Sclerae is anicteric. Conjunctiva pink. Mucous members of the mouth are somewhat dry. Dentition is in very poor order. No thrush noted. There are white patches on the tonsillar area. NECK: Supple. No JVD. No lymphadenopathy. No thyromegaly. LUNGS: Diminished breath sounds. No wheezes or rhonchi. No intercostal retractions. HEART: Regular rate and rhythm. No murmur. ABDOMEN: Soft. Morbidly obese. Bowel sounds are few. No masses. Right sided tenderness. Sorensen catheter draining clear nithin urine. EXTREMITIES: No pedal edema. No calf tenderness. Dorsalis pedis +2 bilaterally. NEUROLOGICAL: Patient is awake, alert and oriented x3. - Labs CBC & Chem 7: 07/06/18 04:00 07/06/18 20:45 Labs: Abnormal Lab Results - Last 24 Hours (Table) 07/06/18 07/06/18 07/06/18 Range/Units 00:08 00:49 01:50 WBC (3.8-10.6) k/uL RBC (4.30-5.90) m/uL Hgb (13.0-17.5) gm/dL Hct (39.0-53.0) % MCV (80.0-100.0) fL MCH (25.0-35.0) pg Neutrophils # (Manual) (1.3-7.7) k/uL Sodium (137-145) mmol/L Potassium (3.5-5.1) mmol/L Glucose (74-99) mg/dL POC Glucose (mg/dL) 220 H 234 H 210 H (75-99) mg/dL Calcium (8.4-10.2) mg/dL Phosphorus (2.5-4.5) mg/dL 07/06/18 07/06/18 07/06/18 Range/Units 02:01 03:03 03:53 WBC (3.8-10.6) k/uL RBC (4.30-5.90) m/uL Hgb (13.0-17.5) gm/dL Hct (39.0-53.0) % MCV (80.0-100.0) fL MCH (25.0-35.0) pg Neutrophils # (Manual) (1.3-7.7) k/uL Sodium (137-145) mmol/L Potassium (3.5-5.1) mmol/L Glucose (74-99) mg/dL POC Glucose (mg/dL) 200 H 180 H 171 H (75-99) mg/dL Calcium (8.4-10.2) mg/dL Phosphorus (2.5-4.5) mg/dL 07/06/18 07/06/18 07/06/18 Range/Units 04:00 04:00 04:52 WBC 27.3 H (3.8-10.6) k/uL RBC 4.08 L (4.30-5.90) m/uL Hgb 9.9 L (13.0-17.5) gm/dL Hct 29.5 L (39.0-53.0) % MCV 72.4 L (80.0-100.0) fL MCH 24.4 L (25.0-35.0) pg Neutrophils # (Manual) 24.50 H (1.3-7.7) k/uL Sodium 135 L (137-145) mmol/L Potassium 3.4 L (3.5-5.1) mmol/L Glucose 159 H (74-99) mg/dL POC Glucose (mg/dL) 141 H (75-99) mg/dL Calcium 6.9 L (8.4-10.2) mg/dL Phosphorus 2.2 L (2.5-4.5) mg/dL 07/06/18 07/06/18 07/06/18 Range/Units 05:59 07:00 10:56 WBC (3.8-10.6) k/uL RBC (4.30-5.90) m/uL Hgb (13.0-17.5) gm/dL Hct (39.0-53.0) % MCV (80.0-100.0) fL MCH (25.0-35.0) pg Neutrophils # (Manual) (1.3-7.7) k/uL Sodium (137-145) mmol/L Potassium (3.5-5.1) mmol/L Glucose (74-99) mg/dL POC Glucose (mg/dL) 138 H 140 H 130 H (75-99) mg/dL Calcium (8.4-10.2) mg/dL Phosphorus (2.5-4.5) mg/dL 07/06/18 07/06/18 07/06/18 Range/Units 12:14 13:03 14:04 WBC (3.8-10.6) k/uL RBC (4.30-5.90) m/uL Hgb (13.0-17.5) gm/dL Hct (39.0-53.0) % MCV (80.0-100.0) fL MCH (25.0-35.0) pg Neutrophils # (Manual) (1.3-7.7) k/uL Sodium (137-145) mmol/L Potassium (3.5-5.1) mmol/L Glucose (74-99) mg/dL POC Glucose (mg/dL) 120 H 126 H 116 H (75-99) mg/dL Calcium (8.4-10.2) mg/dL Phosphorus (2.5-4.5) mg/dL 07/06/18 07/06/18 07/06/18 Range/Units 15:12 16:55 18:03 WBC (3.8-10.6) k/uL RBC (4.30-5.90) m/uL Hgb (13.0-17.5) gm/dL Hct (39.0-53.0) % MCV (80.0-100.0) fL MCH (25.0-35.0) pg Neutrophils # (Manual) (1.3-7.7) k/uL Sodium (137-145) mmol/L Potassium (3.5-5.1) mmol/L Glucose (74-99) mg/dL POC Glucose (mg/dL) 117 H 114 H 132 H (75-99) mg/dL Calcium (8.4-10.2) mg/dL Phosphorus (2.5-4.5) mg/dL 07/06/18 07/06/18 07/06/18 Range/Units 19:34 20:20 20:45 WBC (3.8-10.6) k/uL RBC (4.30-5.90) m/uL Hgb (13.0-17.5) gm/dL Hct (39.0-53.0) % MCV (80.0-100.0) fL MCH (25.0-35.0) pg Neutrophils # (Manual) (1.3-7.7) k/uL Sodium (137-145) mmol/L Potassium 3.4 L (3.5-5.1) mmol/L Glucose (74-99) mg/dL POC Glucose (mg/dL) 128 H 128 H (75-99) mg/dL Calcium (8.4-10.2) mg/dL Phosphorus (2.5-4.5) mg/dL 07/06/18 07/06/18 Range/Units 21:04 22:18 WBC (3.8-10.6) k/uL RBC (4.30-5.90) m/uL Hgb (13.0-17.5) gm/dL Hct (39.0-53.0) % MCV (80.0-100.0) fL MCH (25.0-35.0) pg Neutrophils # (Manual) (1.3-7.7) k/uL Sodium (137-145) mmol/L Potassium (3.5-5.1) mmol/L Glucose (74-99) mg/dL POC Glucose (mg/dL) 125 H 138 H (75-99) mg/dL Calcium (8.4-10.2) mg/dL Phosphorus (2.5-4.5) mg/dL Microbiology - Last 24 Hours (Table) 07/04/18 16:06 Blood Culture Gram Stain - Preliminary Blood Blood Culture - Final Anaerobic Gm Negative Bacilli 07/05/18 13:31 Gram Stain - Preliminary Abdomen Wound Culture - Preliminary Gram Neg Bacilli 07/04/18 22:20 Urine Culture - Final Urine,Catheterized 07/04/18 16:06 Blood Culture - Final Blood 07/04/18 18:30 Urine Culture - Final Urine,Catheterized 07/05/18 13:31 Anaerobic Culture - Preliminary Abdomen 07/05/18 13:31 Fungal Culture - Preliminary Abdomen Laboratory Results WBC 27.3 k/uL (3.8-10.6) H 07/06/18 04:00 RBC 4.08 m/uL (4.30-5.90) L 07/06/18 04:00 Hgb 9.9 gm/dL (13.0-17.5) L 07/06/18 04:00 Hct 29.5 % (39.0-53.0) L 07/06/18 04:00 MCV 72.4 fL (80.0-100.0) L 07/06/18 04:00 MCH 24.4 pg (25.0-35.0) L 07/06/18 04:00 MCHC 33.6 g/dL (31.0-37.0) 07/06/18 04:00 RDW 14.3 % (11.5-15.5) 07/06/18 04:00 Plt Count 321 k/uL (150-450) 07/06/18 04:00 Neutrophils % (Manual) 86 % 07/06/18 04:00 Band Neutrophils % 4 % 07/06/18 04:00 Lymphocytes % (Manual) 8 % 07/06/18 04:00 Monocytes % (Manual) 2 % 07/06/18 04:00 Eosinophils % (Manual) 1 % 07/05/18 15:42 Metamyelocytes % 1 % 07/05/18 15:42 Myelocytes % 7 % 07/04/18 16:06 Neutrophils # (Manual) 24.50 k/uL (1.3-7.7) H 07/06/18 04:00 Lymphocytes # (Manual) 2.18 k/uL (1.0-4.8) 07/06/18 04:00 Monocytes # (Manual) 0.55 k/uL (0-1.0) 07/06/18 04:00 Eosinophils # (Manual) 0.31 k/uL (0-0.7) 07/05/18 15:42 Metamyelocytes # (Man) 0.31 k/uL (0) H 07/05/18 15:42 Myelocytes # (Manual) 0.81 k/uL (0) H 07/04/18 16:06 Nucleated RBCs 0 /100 WBC (0-0) 07/06/18 04:00 Manual Slide Review Performed 07/06/18 04:00 Toxic Granulation Present 07/05/18 15:42 Toxic Vacuolation Present 07/05/18 15:42 Large Platelets Present 07/05/18 15:42 Polychromasia Present 07/05/18 05:05 Hypochromasia Slight 07/05/18 05:05 Microcytosis Slight 07/06/18 04:00 PT 13.6 sec (9.0-12.0) H 07/05/18 05:05 INR 1.3 (<1.2) H 07/05/18 05:05 APTT 25.7 sec (22.0-30.0) 07/05/18 05:05 Sample Site rra 07/05/18 15:33 ABG pH 7.41 (7.35-7.45) 07/05/18 15:33 ABG pCO2 40 mmHg (35-45) 07/05/18 15:33 ABG pO2 84 mmHg (83-108) 07/05/18 15:33 ABG HCO3 25 mmol/L (21-25) 07/05/18 15:33 ABG Total CO2 26 mmol/L (19-24) H 07/05/18 15:33 ABG O2 Saturation 96.5 % (94-97) 07/05/18 15:33 ABG Base Excess 0.3 mmol/L 07/05/18 15:33 Jonh Test Yes 07/05/18 15:33 FiO2 50 % 07/05/18 15:33 Sodium 135 mmol/L (137-145) L 07/06/18 04:00 Potassium 3.4 mmol/L (3.5-5.1) L 07/06/18 20:45 Chloride 99 mmol/L (98-107) 07/06/18 04:00 Carbon Dioxide 28 mmol/L (22-30) 07/06/18 04:00 Anion Gap 8 mmol/L 07/06/18 04:00 BUN 13 mg/dL (9-20) 07/06/18 04:00 Creatinine 0.93 mg/dL (0.66-1.25) 07/06/18 04:00 Est GFR (CKD-EPI)AfAm >90 (>60 ml/min/1.73 sqM) 07/06/18 04:00 Est GFR (CKD-EPI)NonAf >90 (>60 ml/min/1.73 sqM) 07/06/18 04:00 Glucose 159 mg/dL (74-99) H 07/06/18 04:00 POC Glucose (mg/dL) 138 mg/dL (75-99) H 07/06/18 22:18 POC Glu Photo Mask Pattern Generator Deonna Bird 07/06/18 22:[address] Glu mg/dL 189 07/05/18 05:05 Hemoglobin A1c 8.2 % (4.0-6.0) H 07/05/18 05:05 Lactic Ac Sepsis Rflx Y 07/05/18 08:40 Plasma Lactic Acid Chay 2.9 mmol/L (0.7-2.0) H* 07/05/18 15:42 Calcium 6.9 mg/dL (8.4-10.2) L 07/06/18 04:00 Phosphorus 2.2 mg/dL (2.5-4.5) L 07/06/18 04:00 Magnesium 2.1 mg/dL (1.6-2.3) 07/06/18 04:00 Total Bilirubin 1.5 mg/dL (0.2-1.3) H 07/04/18 16:06 AST 47 U/L (17-59) 07/04/18 16:06 ALT 38 U/L (21-72) 07/04/18 16:06 Alkaline Phosphatase 365 U/L (38-126) H 07/04/18 16:06 Troponin I <0.012 ng/mL (0.000-0.034) 07/04/18 16:06 Total Protein 6.4 g/dL (6.3-8.2) 07/04/18 16:06 Albumin 2.8 g/dL (3.5-5.0) L 07/04/18 16:06 Urine Color Yellow 07/04/18 22:20 Urine Appearance Turbid (Clear) 07/04/18 22:20 Urine pH 5.5 (5.0-8.0) 07/04/18 22:20 Ur Specific [place] 1.021 (1.001-1.035) 07/04/18 22:20 Urine Protein 2+ (Negative) H 07/04/18 22:20 Urine Glucose (UA) 2+ (Negative) H 07/04/18 22:20 Urine Ketones Trace (Negative) H 07/04/18 22:20 Urine Blood Moderate (Negative) H 07/04/18 22:20 Urine Nitrite Negative (Negative) 07/04/18 22:20 Urine Bilirubin Negative (Negative) 07/04/18 22:20 Urine Urobilinogen <2.0 mg/dL (<2.0) 07/04/18 22:20 Ur Leukocyte Esterase Trace (Negative) H 07/04/18 22:20 Urine RBC 11 /hpf (0-5) H 07/04/18 22:20 Urine WBC 28 /hpf (0-5) H 07/04/18 22:20 Urine WBC Clumps Many /hpf (None) H 07/04/18 22:20 Ur Squamous Epith Cells 2 /hpf (0-4) 07/04/18 22:20 Urine Bacteria Moderate /hpf (None) H 07/04/18 22:20 Granular Casts 949 /lpf (0) 07/04/18 22:20 Urine Mucus Rare /hpf (None) H 07/04/18 22:20 Vancomycin Trough 15.8 ug/mL 07/06/18 04:00 Influenza Type A RNA Not Detected (Not Detectd) 07/04/18 16:06 Influenza Type B (PCR) Not Detected (Not Detectd) 07/04/18 16:06 Microbiology 07/04/18 16:06 Blood Blood Culture Gram Stain - Preliminary 07/04/18 16:06 Blood Blood Culture - Final Anaerobic Gm Negative Bacilli 07/05/18 13:31 Abdomen Gram Stain - Preliminary 07/05/18 13:31 Abdomen Wound Culture - Preliminary Gram Neg Bacilli 07/04/18 22:20 Urine,Catheterized Urine Culture - Final 07/04/18 16:06 Blood Blood Culture - Final 07/04/18 18:30 Urine,Catheterized Urine Culture - Final 07/05/18 13:31 Abdomen Anaerobic Culture - Preliminary 07/05/18 13:31 Abdomen Fungal Culture - Preliminary 07/05/18 00:30 Stool Stool Culture - Preliminary Assessment and Plan (1) Intra-abdominal abscess Narrative/Plan: 43-year-old male presents with fever abdominal pain and about of lightheadedness and syncope was brought to hospital with evidence of sepsis. With abdominal pain and abnormality computed tomography scan shows evidence of the free air in the pelvis to go to the operating room for surgical intervention. Antibiotic therapy with Zosyn has been initiated for treatment of intra-abdominal sepsis related to his ruptured appendix. Vancomycin has been initiated and will likely be deescalated depending on culture results. Improvement of his glucose control will be important in helping him in the postoperative timeframe. Cultures will help determine the final course of antibiotic therapy as he improves. Postoperatively ongoing supportive care, initiating nutrition as soon as possible to allow further improvement of his status. 07/06/2018 the patient now is considerably improved. He has been extubated and has improved respiratory status. His mentation is also doing quite well. The blood cultures are positive for gram-negative bacilli as is the intra- abdominal abscess. Anaerobic pathogens also being seen. Antibiotic therapy with Zosyn continues we'll likely discontinue vancomycin within the next day because cultures become finalized. Follow blood cultures are processing n egative so far. Continue supportive care. Nutrition as per the surgical team. Current Visit: Yes Status: Acute Code(s): K65.1 - PERITONEAL ABSCESS SNOMED Code(s): 75621101 (2) Rupture of appendix Current Visit: Yes Status: Acute Code(s): K35.32 - ACUTE APPENDICITIS WITH PERF AND LOC PERITONITIS, W/O ABSCS SNOMED Code(s): 94102130 (3) Syncope Current Visit: No Status: Acute Code(s): R55 - SYNCOPE AND COLLAPSE SNOMED Code(s): 192781553
[2018-07-06 23:17] LABS: Glucose,Whole Blood 130 mg/dL (75-99)
[2018-07-07 00:14] LABS: Glucose,Whole Blood 144 mg/dL (75-99)
[2018-07-07] MEDS: MORPHINE SULFATE 4 MG/ML SYRINGE IV PRN ×4 (00:36→16:44)
[2018-07-07] MEDS: PIPERACILLIN-TAZOBACTAM 3.375 GM in SODIUM CHLORIDE 0.9% 100 ML IVPB SCH ×3 (00:37→16:43)
[2018-07-07 01:11] LABS: Glucose,Whole Blood 129 mg/dL (75-99)
[2018-07-07 02:18] LABS: Glucose,Whole Blood 131 mg/dL (75-99)
[2018-07-07] MEDS: INSULIN REGULAR 100 UNIT in SODIUM CHLORIDE 0.9% 100 ML IV SCH (03:10)
[2018-07-07] MEDS: SODIUM CHLORIDE 0.9% 1,000 ML IV SCH ×3 (03:12→19:04)
[2018-07-07 03:13] LABS: Glucose,Whole Blood 121 mg/dL (75-99)
[2018-07-07 04:16] LABS: Glucose,Whole Blood 117 mg/dL (75-99)
[2018-07-07] MEDS ORDERED: VANCOMYCIN TROUGH DUE 1 EACH MISC MISCELLANE ONE (05:00)
[2018-07-07 05:16] LABS: Glucose,Whole Blood 112 mg/dL (75-99)
[2018-07-07 05:29] LABS: Basophils % (A) 0 %; Eosinophils # (A) 0.1 k/uL (0-0.7); Eosinophils % (A) 0 %; HCT 28.6 % (39.0-53.0); Lymphocytes # (A) 1.4 k/uL (1.0-4.8); Lymphocytes % (A) 7 %; MCH 23.4 pg (25.0-35.0); MCHC 31.6 g/dL (31.0-37.0); MCV 74.2 fL (80.0-100.0); Mean Platelet Volume 7.5; Microcytosis Slight; Monocytes # (A) 0.7 k/uL (0-1.0); Monocytes % (A) 3 %; Neutrophils # (A) 19.6 k/uL (1.3-7.7); Neutrophils % (A) 88 %; Platelet Count 326 k/uL (150-450); RBC 3.86 m/uL (4.30-5.90); RDW 14.7 % (11.5-15.5); WBC 22.2 k/uL (3.8-10.6)
[2018-07-07 05:43] LABS: ALT 36 U/L (21-72); AST 28 U/L (17-59); Alkaline Phosphatase 152 U/L (38-126); Anion Gap 6 mmol/L; Blood Urea Nitrogen 15 mg/dL (9-20); Calcium 7.3 mg/dL (8.4-10.2); Carbon Dioxide 28 mmol/L (22-30); Chloride 105 mmol/L (98-107); Glucose 105 mg/dL (74-99); Magnesium 1.7 mg/dL (1.6-2.3); Phosphorus 2.5 mg/dL (2.5-4.5); Potassium 3.6 mmol/L (3.5-5.1); Sodium 139 mmol/L (137-145); Total Bilirubin 1.7 mg/dL (0.2-1.3); Total Protein 4.7 g/dL (6.3-8.2)
[2018-07-07] MEDS: VANCOMYCIN 2,000 MG in SODIUM CHLORIDE 0.9% 500 ML 500 ML IVPB SCH (05:53)
[2018-07-07 06:14] LABS: Glucose,Whole Blood 138 mg/dL (75-99)
[2018-07-07] MEDS: POTASSIUM CHLORIDE 10 MEQ in WATER FOR INJECTION 1 100ML.BAG IVPB SCH ×2 (06:35→10:17)
[2018-07-07] MEDS: MAGNESIUM SULFATE-D5W PMX 1 GM in DEXTROSE/WATER 1 100ML.BAG IVPB SCH ×2 (06:35→10:17)
[2018-07-07 07:17] LABS: Glucose,Whole Blood 140 mg/dL (75-99)
[2018-07-07 08:19] LABS: Glucose,Whole Blood 132 mg/dL (75-99)
--- NOTE | 2018-07-07 08:33 | XR ---
EXAMINATION TYPE: XR chest 1V portable DATE OF EXAM: 07/07/2018 COMPARISON: 07/06/2018 INDICATION: Adventitious lung sounds, abnormal auscultation TECHNIQUE: Single frontal view of the chest is obtained. FINDINGS: The heart size is mildly prominent. The pulmonary vasculature is normal. No suspicious infiltrates are evident. The left central venous catheter with the tip in the region of the distal superior vena cava appears stable in position. IMPRESSION: 1. No acute pulmonary process.
[2018-07-07 09:06] LABS: Glucose,Whole Blood 136 mg/dL (75-99)
[2018-07-07 10:09] LABS: Glucose,Whole Blood 120 mg/dL (75-99)
[2018-07-07] MEDS: FAMOTIDINE 20 MG/2 ML VIAL IV SCH ×2 (10:18→20:25)
[2018-07-07] MEDS ORDERED: INSULIN ASPART (NovoLOG) 100 UNIT/ML VIAL SQ SCH (11:00)
--- NOTE | 2018-07-07 11:02 | P.PN ---
Progress Note - Text Progress Note Date: 07/07/18 The patient is doing well. He is requesting for some into the. He states he may have had a small flatus. On exam his vital signs are stable. The patient slightly tachycardic with pulse is in the 110 range His abdomen is soft. Incision site is clean dry intact. Status post right colectomy for presumed perforated appendicitis. With abscess. Patient will continue receive IV antibiotic. We'll start him on some ice chips today.
[2018-07-07] MEDS ORDERED: INSULIN REGULAR 100 UNIT in SODIUM CHLORIDE 0.9% 100 ML IV SCH (12:00)
[2018-07-07 12:03] LABS: Glucose,Whole Blood 153 mg/dL (75-99)
[2018-07-07] MEDS: INSULIN ASPART (NovoLOG) 100 UNIT/ML VIAL SQ SCH ×3 (12:05→23:58)
[2018-07-07] MEDS: INSULIN DETEMIR (LEVEMIR) 100 UNIT/ML SYR SQ SCH (12:11)
[2018-07-07 12:22] LABS: Glucose,Whole Blood 149 mg/dL (75-99)
--- NOTE | 2018-07-07 13:41 | P.PN ---
Subjective Progress Note Date: 07/07/18 Principal diagnosis: Acute abdominal sepsis his is a 43-year-old white male with history of diabetes, hypertension, seizure disorder, supraventricular tachycardia, patient presented to the ER with almost 1 week history of uncomfortable feeling in the abdomen. Pain has been described in the right mid abdomen area, patient has been feeling recently extremely lightheaded, and he passed out twice before he came into the hospital. Upon presentation to the hospital, the patient was noted to be febrile with a temp of 101.6, he was tachycardic, and blood pressure was normal. Lactic acid was noted to be elevated at 9.7. Influenza screen was negative. His liver enzymes were noted to be a bit elevated. And CT of the abdomen and pelvis showedabdominal abscess, and markedly thickened appendix. The radiologist felt this is consistent with appendicitis and the rupture. Patient was started on broad- spectrum antibiotics, admitted to the intensive care unit and he was placed on a bicarb drip for his metabolic acidosis. Surgical consultation was initiated. And he is being considered for exploratory laparotomy sometime today. Since admission the patient has made a significant improvement. He is feeling better, breathing easier, his pain is well controlled, and he is hemodynamically stable. Did not require any pressors. Patient responded mostly to fluids and antibi otics.all along the patient had no significant pulmonary symptoms except a bit of shortness of breath when he was in the ER yesterday. Patient was reevaluated today on 07/06/2018, he underwent exploratory laparotomy and right colectomy by Dr. Stovall, and postoperatively he was sent to the ICU on mechanical ventilation. Shortly after he arrived to the ICU, I extubated the patient, and placed on nasal cannula. Patient was reevaluated today, he is doing great, relatively asymptomatic, sitting in bed, talking on the phone. Denies any cough no wheezing no shortness of breath denies any abdominal discomfort. His WBC count is down to 27.3 his other labs were noted to be relatively unremarkable. Electrolytes and renal profile were noted to be normal. Chest x-ray this morning showed no acute process. Patient was reevaluated today on 07/07/2018, patient is doing well post exploratory laparotomy and right colectomy. States that he may have had small flatus, he is hemodynamically stable, heart rate about 110, but the patient is asymptomatic. Blood pressure is normal. Urine output is excellent. Patient is status post right colectomy for presumed perforated appendicitis with abscess. WBC count is down to 22.2, his basic metabolic profile and renal profile are normal. Patient denies any shortness of breath cough or wheezing, denies any abdominal pain. Objective - Vital Signs Vital signs: Vital Signs Temp 99.3 F 07/07/18 12:00 Pulse 120 H 07/07/18 12:00 Resp 14 07/07/18 12:00 BP 151/88 07/07/18 12:00 Pulse Ox 96 07/07/18 12:00 Intake & Output 07/06/18 07/07/18 07/07/18 18:59 06:59 18:59 Intake Total 2230.237 1362.117 3540.360 Output Total 960 1080 480 Balance 1270.237 681.979 904.360 Weight 142.3 kg Intake: IV 2175 1717 1359 Magnesium Sulfate-D5w Pmx 100 1 gm In Dextrose/Water 1 100ml.bag @ 100 mls/hr IVPB Q1H [facility] Rx#: [id number] Normal saline 1250 750 Piperacillin-Tazobactam 3 100 50 75 .375 gm In Sodium Chloride 0.9% 100 ml @ 25 mls/hr IVPB Q8HR [facility] Rx# :[id number] Potassium Chloride 10 meq 100 In Water For Injection 1 100ml.bag @ 100 mls/hr IVPB Q1H [facility] Rx#: [id number] Potassium Chloride 20 meq 100 In Water For Injection 1 100ml.bag @ 50 mls/hr IVPB Q2H [facility] Rx#: [id number] Sodium Chloride 0.9% 1, 1375 250 000 ml @ 75 mls/hr IV . [id number] [facility] Rx#:[id number] Sodium Phosphate 10 mmol 100 In Sodium Chloride 0.9% 100 ml @ 50 mls/hr IVPB ONCE ONE Rx#:[id number] Vancomycin 2,000 mg In 500 167 334 Sodium Chloride 0.9% 500 ml 500 ml @ 167 mls/hr IVPB Q12H [facility] Rx#: [id number] Intake, IV Titration 55.237 44.979 25.360 Amount Insulin Regular 100 unit 55.237 44.979 25.360 In Sodium Chloride 0.9% 100 ml @ Per Protocol IV .Q0M [facility] Rx#:[id number] Output: Drainage 60 205 30 Right Lower Abdomen 60 205 30 Urine 900 875 450 Other: Voiding Method Indwelling Catheter Indwelling Catheter - Exam Physical Exam: Revealed a 43-year-old white male, obese, in no distress. Head: Atraumatic, normocephalic. HEENT:[Neck is supple.] [No neck masses.] [No thyromegaly.] [No JVD.]PERRLA, EOMI, no icterus. Chest: [Clear throughout, no crackles, no rhonchi, no wheezes.] Cardiac Exam: [Normal S1 and S2, no S3 gallop, no murmur.] Abdomen: [Postsurgical, obese,Soft, slightly tender in the right lower quadrant, no rebound, no guarding. Diminished bowel sounds. Extremities: [No clubbing, no edema, no cyanosis.] Neurological Exam: [No focal neurologic deficit. psychiatric: Normal mood affect and mental status examination Lymphatics: No lymphadenopathy. Skin: No rashes.] - Labs CBC & Chem 7: 07/07/18 05:06 07/07/18 05:06 Labs: Abnormal Lab Results - Last 24 Hours (Table) 07/06/18 07/06/18 07/06/18 Range/Units 14:04 15:12 16:55 WBC (3.8-10.6) k/uL RBC (4.30-5.90) m/uL Hgb (13.0-17.5) gm/dL Hct (39.0-53.0) % MCV (80.0-100.0) fL MCH (25.0-35.0) pg Neutrophils # (1.3-7.7) k/uL Potassium (3.5-5.1) mmol/L Glucose (74-99) mg/dL POC Glucose (mg/dL) 116 H 117 H 114 H (75-99) mg/dL Calcium (8.4-10.2) mg/dL Total Bilirubin (0.2-1.3) mg/dL Alkaline Phosphatase (38-126) U/L Total Protein (6.3-8.2) g/dL Albumin (3.5-5.0) g/dL 07/06/18 07/06/18 07/06/18 Range/Units 18:03 19:34 20:20 WBC (3.8-10.6) k/uL RBC (4.30-5.90) m/uL Hgb (13.0-17.5) gm/dL Hct (39.0-53.0) % MCV (80.0-100.0) fL MCH (25.0-35.0) pg Neutrophils # (1.3-7.7) k/uL Potassium (3.5-5.1) mmol/L Glucose (74-99) mg/dL POC Glucose (mg/dL) 132 H 128 H 128 H (75-99) mg/dL Calcium (8.4-10.2) mg/dL Total Bilirubin (0.2-1.3) mg/dL Alkaline Phosphatase (38-126) U/L Total Protein (6.3-8.2) g/dL Albumin (3.5-5.0) g/dL 07/06/18 07/06/18 07/06/18 Range/Units 20:45 21:04 22:18 WBC (3.8-10.6) k/uL RBC (4.30-5.90) m/uL Hgb (13.0-17.5) gm/dL Hct (39.0-53.0) % MCV (80.0-100.0) fL MCH (25.0-35.0) pg Neutrophils # (1.3-7.7) k/uL Potassium 3.4 L (3.5-5.1) mmol/L Glucose (74-99) mg/dL POC Glucose (mg/dL) 125 H 138 H (75-99) mg/dL Calcium (8.4-10.2) mg/dL Total Bilirubin (0.2-1.3) mg/dL Alkaline Phosphatase (38-126) U/L Total Protein (6.3-8.2) g/dL Albumin (3.5-5.0) g/dL 07/06/18 07/07/18 07/07/18 Range/Units 23:06 00:02 00:59 WBC (3.8-10.6) k/uL RBC (4.30-5.90) m/uL Hgb (13.0-17.5) gm/dL Hct (39.0-53.0) % MCV (80.0-100.0) fL MCH (25.0-35.0) pg Neutrophils # (1.3-7.7) k/uL Potassium (3.5-5.1) mmol/L Glucose (74-99) mg/dL POC Glucose (mg/dL) 130 H 144 H 129 H (75-99) mg/dL Calcium (8.4-10.2) mg/dL Total Bilirubin (0.2-1.3) mg/dL Alkaline Phosphatase (38-126) U/L Total Protein (6.3-8.2) g/dL Albumin (3.5-5.0) g/dL 07/07/18 07/07/18 07/07/18 Range/Units 02:07 03:02 04:03 WBC (3.8-10.6) k/uL RBC (4.30-5.90) m/uL Hgb (13.0-17.5) gm/dL Hct (39.0-53.0) % MCV (80.0-100.0) fL MCH (25.0-35.0) pg Neutrophils # (1.3-7.7) k/uL Potassium (3.5-5.1) mmol/L Glucose (74-99) mg/dL POC Glucose (mg/dL) 131 H 121 H 117 H (75-99) mg/dL Calcium (8.4-10.2) mg/dL Total Bilirubin (0.2-1.3) mg/dL Alkaline Phosphatase (38-126) U/L Total Protein (6.3-8.2) g/dL Albumin (3.5-5.0) g/dL 07/07/18 07/07/18 07/07/18 Range/Units 05:05 05:06 05:06 WBC 22.2 H (3.8-10.6) k/uL RBC 3.86 L (4.30-5.90) m/uL Hgb 9.0 L (13.0-17.5) gm/dL Hct 28.6 L (39.0-53.0) % MCV 74.2 L (80.0-100.0) fL MCH 23.4 L (25.0-35.0) pg Neutrophils # 19.6 H (1.3-7.7) k/uL Potassium (3.5-5.1) mmol/L Glucose 105 H (74-99) mg/dL POC Glucose (mg/dL) 112 H (75-99) mg/dL Calcium 7.3 L (8.4-10.2) mg/dL Total Bilirubin 1.7 H (0.2-1.3) mg/dL Alkaline Phosphatase 152 H (38-126) U/L Total Protein 4.7 L (6.3-8.2) g/dL Albumin 2.0 L (3.5-5.0) g/dL 07/07/18 07/07/18 07/07/18 Range/Units 06:02 07:06 08:07 WBC (3.8-10.6) k/uL RBC (4.30-5.90) m/uL Hgb (13.0-17.5) gm/dL Hct (39.0-53.0) % MCV (80.0-100.0) fL MCH (25.0-35.0) pg Neutrophils # (1.3-7.7) k/uL Potassium (3.5-5.1) mmol/L Glucose (74-99) mg/dL POC Glucose (mg/dL) 138 H 140 H 132 H (75-99) mg/dL Calcium (8.4-10.2) mg/dL Total Bilirubin (0.2-1.3) mg/dL Alkaline Phosphatase (38-126) U/L Total Protein (6.3-8.2) g/dL Albumin (3.5-5.0) g/dL 07/07/18 07/07/18 07/07/18 Range/Units 08:54 09:58 11:52 WBC (3.8-10.6) k/uL RBC (4.30-5.90) m/uL Hgb (13.0-17.5) gm/dL Hct (39.0-53.0) % MCV (80.0-100.0) fL MCH (25.0-35.0) pg Neutrophils # (1.3-7.7) k/uL Potassium (3.5-5.1) mmol/L Glucose (74-99) mg/dL POC Glucose (mg/dL) 136 H 120 H 153 H (75-99) mg/dL Calcium (8.4-10.2) mg/dL Total Bilirubin (0.2-1.3) mg/dL Alkaline Phosphatase (38-126) U/L Total Protein (6.3-8.2) g/dL Albumin (3.5-5.0) g/dL 07/07/18 Range/Units 12:11 WBC (3.8-10.6) k/uL RBC (4.30-5.90) m/uL Hgb (13.0-17.5) gm/dL Hct (39.0-53.0) % MCV (80.0-100.0) fL MCH (25.0-35.0) pg Neutrophils # (1.3-7.7) k/uL Potassium (3.5-5.1) mmol/L Glucose (74-99) mg/dL POC Glucose (mg/dL) 149 H (75-99) mg/dL Calcium (8.4-10.2) mg/dL Total Bilirubin (0.2-1.3) mg/dL Alkaline Phosphatase (38-126) U/L Total Protein (6.3-8.2) g/dL Albumin (3.5-5.0) g/dL Microbiology - Last 24 Hours (Table) 07/05/18 00:30 Stool Culture - Preliminary Stool 07/04/18 16:06 Blood Culture Gram Stain - Preliminary Blood Blood Culture - Final Anaerobic Gm Negative Bacilli 07/05/18 13:31 Gram Stain - Preliminary Abdomen Wound Culture - Preliminary Gram Neg Bacilli 07/04/18 22:20 Urine Culture - Final Urine,Catheterized Assessment and Plan Assessment: impression: 1 acute abdominal sepsis secondary to ruptured appendix with peritonitis and lactic acidosis on presentation. Status post exploratory laparotomy and right colectomy, postoperative day #2 2 acute kidney injury secondary to sepsis and acute tubular necrosis. Resolved completely 3 recurrent episodes of syncope since secondary to sepsis and hypotension. Resolved 4 history of type 2 diabetes 5 history of hypertension 6 history of seizure disorder 7 history of supraventricular tachycardia. Recommendation: Continue antibiotics, incentive spirometry, ambulate the patient, discussed the patient's condition with the surgeon, and we plan to transfer the patient out of the ICU to a regular medical floor today. Will encourage early ambulation, we'll continue present treatment plan otherwise as it is. We'll continue to follow. Time with Patient: Less than 30
[2018-07-07] MEDS: VANCOMYCIN 1,750 MG in SODIUM CHLORIDE 0.9% 500 ML 500 ML IVPB SCH ×2 (14:47→22:56)
--- NOTE | 2018-07-07 16:22 | P.PN ---
Subjective This is a pleasant 43 years old male with past medical history of diabetes mellitus, hypertension, seizure disorder, supraventricular tachycardia. Came originally on 07/04/2018 for feeling lethargic with Palpitation. EKG Showed Supraventricular Tachycardia That Was not been complicated initially. Patient also was complaining from abdominal discomfort. On the presentation his WBC was 11.6, went up to 31.1 hemoglobin 10.3, down from 12.1, currently creatinine is 1.1, he has lactic acid on the presentation 2.4 and 2.9. Liver enzymes are nor mal limits including AST and ALT. He had CAT scan of the abdomen which showed abdominal abscess with ruptured appendix. Surgical team has been consulted and patient underwent exploratory laparotomy with right colectomy. And drainage of the retroperitoneal abscess. Today is postop day #0. Patient has been evaluated by infectious disease also, he was treated with Zosyn and IV vancomycin. Upon ID recommendation. His his worsening kidney function to present acute kidney injury secondary to sepsis and acute tubular necrosis. 07/06/2018 patient is a status post right colectomy for ruptured appendicitis. Today is postop day #1. Patient abdominal pain is controlled. He remains in the ICU. He still nothing by mouth. He is passing gases only but no bowel movement. He denies chest pain or dyspnea.vitals were reviewed, patient is tachycardic and tachypneic. However his blood pressure is controlled and he is saturating 97% on 4 L of oxygen.WBC is 27.3K. Sugar controlled, with mild hypokalemia.he was placed on normal saline 125 mL/h 07/07/2018 patient is a status post right colectomy for ruptured appendicitis. Today is postop day #2. Patient is passing gases. Patient is controlled at the surgical site. No chest pain or dyspnea. vitals are sTable. No urinary problem. As WBC of 20 2.2K. Creatinine is normal. Wound is growing E. coli and blood culture showing gram-negative bacilli. Patient currently on Zosyn and vancomycin. Objective - Vital Signs Vital signs: Vital Signs Temp 99.3 F 07/07/18 12:00 Pulse 117 H 07/07/18 15:00 Resp 30 H 07/07/18 15:00 BP 146/81 07/07/18 15:00 Pulse Ox 93 L 07/07/18 15:00 Intake & Output 03/07/07/18 07/07/18 18:59 06:59 18:59 Intake Total 2230.237 2621.286 4821.360 Output Total 960 1080 640 Balance 1270.237 681.979 994.360 Weight 142.3 kg Intake: IV 2175 1717 1609 Magnesium Sulfate-D5w Pmx 100 1 gm In Dextrose/Water 1 100ml.bag @ 100 mls/hr IVPB Q1H [facility] Rx#: [id number] Normal saline 1250 1000 Piperacillin-Tazobactam 3 100 50 75 .375 gm In Sodium Chloride 0.9% 100 ml @ 25 mls/hr IVPB Q8HR [facility] Rx# :[id number] Potassium Chloride 10 meq 100 In Water For Injection 1 100ml.bag @ 100 mls/hr IVPB Q1H [facility] Rx#: [id number] Potassium Chloride 20 meq 100 In Water For Injection 1 100ml.bag @ 50 mls/hr IVPB Q2H [facility] Rx#: [id number] Sodium Chloride 0.9% 1, 1375 250 000 ml @ 75 mls/hr IV . [id number] [facility] Rx#:[id number] Sodium Phosphate 10 mmol 100 In Sodium Chloride 0.9% 100 ml @ 50 mls/hr IVPB ONCE ONE Rx#:[id number] Vancomycin 2,000 mg In 500 167 334 Sodium Chloride 0.9% 500 ml 500 ml @ 167 mls/hr IVPB Q12H [facility] Rx#: [id number] Intake, IV Titration 55.237 44.979 25.360 Amount Insulin Regular 100 unit 55.237 44.979 25.360 In Sodium Chloride 0.9% 100 ml @ Per Protocol IV .Q0M [facility] Rx#:[id number] Output: Drainage 60 205 90 Right Lower Abdomen 60 205 90 Urine 900 875 550 Other: Voiding Method Indwelling Catheter Indwelling Catheter Indwelling Catheter - Exam GENERAL: The patient is alert and oriented x3, obese HEENT: Pupils are round and equally reacting to light. EOMI. No scleral icterus. No conjunctival pallor. Normocephalic, atraumatic. No pharyngeal erythema. No thyromegaly. CARDIOVASCULAR: S1 and S2 present. No murmurs, rubs, or gallops. PULMONARY: Chest is clear to auscultation, no wheezing or crackles. -ABDOMEN: Soft, nontender, nondistended, normoactive bowel sounds. No palpable organomegaly. midline incision is closed with shawna is in a Place. MUSCULOSKELETAL: No joint swelling or deformity. EXTREMITIES: No cyanosis, clubbing, or pedal edema. NEUROLOGICAL: Gross neurological examination did not reveal any focal deficits. SKIN: No rashes. - Labs CBC & Chem 7: 07/07/18 05:06 07/07/18 05:06 Labs: Abnormal Lab Results - Last 24 Hours (Table) 07/06/18 07/06/18 07/06/18 Range/Units 16:55 18:03 19:34 WBC (3.8-10.6) k/uL RBC (4.30-5.90) m/uL Hgb (13.0-17.5) gm/dL Hct (39.0-53.0) % MCV (80.0-100.0) fL MCH (25.0-35.0) pg Neutrophils # (1.3-7.7) k/uL Potassium (3.5-5.1) mmol/L Glucose (74-99) mg/dL POC Glucose (mg/dL) 114 H 132 H 128 H (75-99) mg/dL Calcium (8.4-10.2) mg/dL Total Bilirubin (0.2-1.3) mg/dL Alkaline Phosphatase (38-126) U/L Total Protein (6.3-8.2) g/dL Albumin (3.5-5.0) g/dL 07/06/18 07/06/18 07/06/18 Range/Units 20:20 20:45 21:04 WBC (3.8-10.6) k/uL RBC (4.30-5.90) m/uL Hgb (13.0-17.5) gm/dL Hct (39.0-53.0) % MCV (80.0-100.0) fL MCH (25.0-35.0) pg Neutrophils # (1.3-7.7) k/uL Potassium 3.4 L (3.5-5.1) mmol/L Glucose (74-99) mg/dL POC Glucose (mg/dL) 128 H 125 H (75-99) mg/dL Calcium (8.4-10.2) mg/dL Total Bilirubin (0.2-1.3) mg/dL Alkaline Phosphatase (38-126) U/L Total Protein (6.3-8.2) g/dL Albumin (3.5-5.0) g/dL 07/06/18 07/06/18 07/07/18 Range/Units 22:18 23:06 00:02 WBC (3.8-10.6) k/uL RBC (4.30-5.90) m/uL Hgb (13.0-17.5) gm/dL Hct (39.0-53.0) % MCV (80.0-100.0) fL MCH (25.0-35.0) pg Neutrophils # (1.3-7.7) k/uL Potassium (3.5-5.1) mmol/L Glucose (74-99) mg/dL POC Glucose (mg/dL) 138 H 130 H 144 H (75-99) mg/dL Calcium (8.4-10.2) mg/dL Total Bilirubin (0.2-1.3) mg/dL Alkaline Phosphatase (38-126) U/L Total Protein (6.3-8.2) g/dL Albumin (3.5-5.0) g/dL 07/07/18 07/07/18 07/07/18 Range/Units 00:59 02:07 03:02 WBC (3.8-10.6) k/uL RBC (4.30-5.90) m/uL Hgb (13.0-17.5) gm/dL Hct (39.0-53.0) % MCV (80.0-100.0) fL MCH (25.0-35.0) pg Neutrophils # (1.3-7.7) k/uL Potassium (3.5-5.1) mmol/L Glucose (74-99) mg/dL POC Glucose (mg/dL) 129 H 131 H 121 H (75-99) mg/dL Calcium (8.4-10.2) mg/dL Total Bilirubin (0.2-1.3) mg/dL Alkaline Phosphatase (38-126) U/L Total Protein (6.3-8.2) g/dL Albumin (3.5-5.0) g/dL 07/07/18 07/07/1807/07/19 Range/Units 04:03 05:05 05:06 WBC (3.8-10.6) k/uL RBC (4.30-5.90) m/uL Hgb (13.0-17.5) gm/dL Hct (39.0-53.0) % MCV (80.0-100.0) fL MCH (25.0-35.0) pg Neutrophils # (1.3-7.7) k/uL Potassium (3.5-5.1) mmol/L Glucose 105 H (74-99) mg/dL POC Glucose (mg/dL) 117 H 112 H (75-99) mg/dL Calcium 7.3 L (8.4-10.2) mg/dL Total Bilirubin 1.7 H (0.2-1.3) mg/dL Alkaline Phosphatase 152 H (38-126) U/L Total Protein 4.7 L (6.3-8.2) g/dL Albumin 2.0 L (3.5-5.0) g/dL 07/07/18 07/07/18 07/07/18 Range/Units 05:06 06:02 07:06 WBC 22.2 H (3.8-10.6) k/uL RBC 3.86 L (4.30-5.90) m/uL Hgb 9.0 L (13.0-17.5) gm/dL Hct 28.6 L (39.0-53.0) % MCV 74.2 L (80.0-100.0) fL MCH 23.4 L (25.0-35.0) pg Neutrophils # 19.6 H (1.3-7.7) k/uL Potassium (3.5-5.1) mmol/L Glucose (74-99) mg/dL POC Glucose (mg/dL) 138 H 140 H (75-99) mg/dL Calcium (8.4-10.2) mg/dL Total Bilirubin (0.2-1.3) mg/dL Alkaline Phosphatase (38-126) U/L Total Protein (6.3-8.2) g/dL Albumin (3.5-5.0) g/dL 07/07/18 07/07/18 07/07/18 Range/Units 08:07 08:54 09:58 WBC (3.8-10.6) k/uL RBC (4.30-5.90) m/uL Hgb (13.0-17.5) gm/dL Hct (39.0-53.0) % MCV (80.0-100.0) fL MCH (25.0-35.0) pg Neutrophils # (1.3-7.7) k/uL Potassium (3.5-5.1) mmol/L Glucose (74-99) mg/dL POC Glucose (mg/dL) 132 H 136 H 120 H (75-99) mg/dL Calcium (8.4-10.2) mg/dL Total Bilirubin (0.2-1.3) mg/dL Alkaline Phosphatase (38-126) U/L Total Protein (6.3-8.2) g/dL Albumin (3.5-5.0) g/dL 07/07/18 07/07/18 Range/Units 11:52 12:11 WBC (3.8-10.6) k/uL RBC (4.30-5.90) m/uL Hgb (13.0-17.5) gm/dL Hct (39.0-53.0) % MCV (80.0-100.0) fL MCH (25.0-35.0) pg Neutrophils # (1.3-7.7) k/uL Potassium (3.5-5.1) mmol/L Glucose (74-99) mg/dL POC Glucose (mg/dL) 153 H 149 H (75-99) mg/dL Calcium (8.4-10.2) mg/dL Total Bilirubin (0.2-1.3) mg/dL Alkaline Phosphatase (38-126) U/L Total Protein (6.3-8.2) g/dL Albumin (3.5-5.0) g/dL Microbiology - Last 24 Hours (Table) 07/05/18 13:31 Gram Stain - Preliminary Abdomen Wound Culture - Preliminary Escherichia coli 07/05/18 00:30 Stool Culture - Preliminary Stool 07/04/18 16:06 Blood Culture Gram Stain - Preliminary Blood Blood Culture - Final Anaerobic Gm Negative Bacilli Assessment and Plan Assessment: Ruptured appendix with intra-abdominal abscess Severe sepsis secondary to above Patient is status post exploratory laparotomy and right colectomy History of diabetes mellitus History of hypertension History of seizure disorder Supraventricular tachycardia Plan: This is a 43 years old male who presents with sepsis secondary to ruptured appendicitis, status post right colectomy. Patient has been followed by several consultants including surgery, critical care team, infectious disease team. Continue with the same antibiotics as per ID team recommendation. Continue pain management. Labs and medication were reviewed.. Continue same treatment. Continue with symptomatic treatment. Resume home medication. Monitor lytes and vitals. DVT and GI prophylaxis. Further recommendations of the clinical course of the patient DVT prophylaxis: no heparin for now. GI Prophylaxis: Ppi Prognosis is guarded
[2018-07-07 18:09] LABS: Glucose,Whole Blood 171 mg/dL (75-99)
--- NOTE | 2018-07-07 21:46 | P.PN ---
Subjective Progress Note Date: 07/07/18 This is a 43-year-old male who gives history of having an uncomfortable feeling in his abdomen but no real pain for the past week as well as fever and chills and diarrhea. Pain was in the right middle abdomen. He states he was feeling lightheaded ended up passing out hitting his face on the ground and his son made him come into the hospital for evaluation. Patient was found to have a temperature of 101.6, tachycardia, blood pressure was stable at 139/55, pulse ox 96 on 2 L. White count initially 11.6 and now at 36.8, hemoglobin 9.9, Pletal count 341. Creatinine 1.31 with repeat of 1.5. Magnesium 0.9, CO2 14, lactic acid 9.7. Influenza testing was negative. Total bilirubin 1.5, alkaline phosphatase 365, albumin 2.8. Urinalysis showed some blood and white cells. Blood cultures status received as well as urine culture. CAT scan of the chest abdomen and pelvis showed appendix with rupture. Chest x-ray patchy medial basilar atelectasis and or developing pneumonia. Patient w as given a dose of cefepime and vancomycin, continued on vancomycin and admitted into the intensive care unit. He has been on sodium bicarb drip, Sorensen catheter has been placed. He has not required vasopressors. Surgery is scheduled for today. Patient is a [id number] diabetic and he states his last physical when A1c was 7.2. 07/06/2018 patient is now considerably improved from the last evaluation. He is now been extubated. Sitting upright is history comfortable. Lasix his abdom inal pain is under quite good control. Denies other new acute complaints at this time. 07/07/2018 patient has further improvement. Extubated, comfortable, is having some ice chips and is pleased with that. Abdominal pain is improved. No other acute new complaints. No nausea or emesis positive flatus. Objective - Vital Signs Vital signs: Vital Signs Temp 99.1 F 07/07/18 20:00 Pulse 105 H 07/07/18 20:00 Resp 29 H 07/07/18 20:00 BP 142/83 07/07/18 20:00 Pulse Ox 93 L 07/07/18 20:00 Intake & Output 07/07/18 07/07/18 07/08/18 06:59 18:59 06:59 Intake Total 1001.043 6287.360 275 Output Total 1080 840 100 Balance 265.471 1311.360 175 Weight 142.3 kg Intake: IV 1717 2685 275 Magnesium Sulfate-D5w Pmx 100 1 gm In Dextrose/Water 1 100ml.bag @ 100 mls/hr IVPB Q1H [facility] Rx#: [id number] Normal saline 1250 1500 250 Piperacillin-Tazobactam 3 50 150 25 .375 gm In Sodium Chloride 0.9% 100 ml @ 25 mls/hr IVPB Q8HR [facility] Rx# :[id number] Potassium Chloride 10 meq 100 In Water For Injection 1 100ml.bag @ 100 mls/hr IVPB Q1H [facility] Rx#: [id number] Sodium Chloride 0.9% 1, 250 000 ml @ 75 mls/hr IV . [id number] [facility] Rx#:[id number] Vancomycin 2,000 mg In 167 835 Sodium Chloride 0.9% 500 ml 500 ml @ 167 mls/hr IVPB Q12H [facility] Rx#: [id number] Intake, IV Titration 44.979 25.360 Amount Insulin Regular 100 unit 44.979 25.360 In Sodium Chloride 0.9% 100 ml @ Per Protocol IV .Q0M [facility] Rx#:[id number] Output: Drainage 205 90 Right Lower Abdomen 205 90 Urine 875 750 100 Other: Voiding Method Indwelling Catheter Indwelling Catheter Indwelling Catheter - Exam Gen: This is a morbidly obese 43-year-old male. He is resting in the ICU bed and appears to be comfortable and in no acute distress. Was extubated later yesterday after his surgical intervention HEENT: Head is atraumatic, normocephalic. Pupils equal, round. Sclerae is anicteric. Conjunctiva pink. Mucous members of the mouth are somewhat dry. Dentition is in very poor order. No thrush noted. There are white patches on the tonsillar area. NECK: Supple. No JVD. No lymphadenopathy. No thyromegaly. LUNGS: Diminished breath sounds. No wheezes or rhonchi. No intercostal retractions. HEART: Regular rate and rhythm. No murmur. ABDOMEN: Soft. Morbidly obese. Bowel sounds are few. No masses. Right sided tenderness. Sorensen catheter draining clear nithin urine. EXTREMITIES: No pedal edema. No calf tenderness. Dorsalis pedis +2 bilate rally. NEUROLOGICAL: Patient is awake, alert and oriented x3. - Labs CBC & Chem 7: 07/07/18 05:06 07/07/18 05:06 Labs: Abnormal Lab Results - Last 24 Hours (Table) 07/06/18 07/06/18 07/07/18 Range/Units 22:18 23:06 00:02 WBC (3.8-10.6) k/uL RBC (4.30-5.90) m/uL Hgb (13.0-17.5) gm/dL Hct (39.0-53.0) % MCV (80.0-100.0) fL MCH (25.0-35.0) pg Neutrophils # (1.3-7.7) k/uL Glucose (74-99) mg/dL POC Glucose (mg/dL) 138 H 130 H 144 H (75-99) mg/dL Calcium (8.4-10.2) mg/dL Total Bilirubin (0.2-1.3) mg/dL Alkaline Phosphatase (38-126) U/L Total Protein (6.3-8.2) g/dL Albumin (3.5-5.0) g/dL 07/07/18 07/07/18 07/07/18 Range/Units 00:59 02:07 03:02 WBC (3.8-10.6) k/uL RBC (4.30-5.90) m/uL Hgb (13.0-17.5) gm/dL Hct (39.0-53.0) % MCV (80.0-100.0) fL MCH (25.0-35.0) pg Neutrophils # (1.3-7.7) k/uL Glucose (74-99) mg/dL POC Glucose (mg/dL) 129 H 131 H 121 H (75-99) mg/dL Calcium (8.4-10.2) mg/dL Total Bilirubin (0.2-1.3) mg/dL Alkaline Phosphatase (38-126) U/L Total Protein (6.3-8.2) g/dL Albumin (3.5-5.0) g/dL 07/07/18 07/07/18 07/07/18 Range/Units 04:03 05:05 05:06 WBC (3.8-10.6) k/uL RBC (4.30-5.90) m/uL Hgb (13.0-17.5) gm/dL Hct (39.0-53.0) % MCV (80.0-100.0) fL MCH (25.0-35.0) pg Neutrophils # (1.3-7.7) k/uL Glucose 105 H (74-99) mg/dL POC Glucose (mg/dL) 117 H 112 H (75-99) mg/dL Calcium 7.3 L (8.4-10.2) mg/dL Total Bilirubin 1.7 H (0.2-1.3) mg/dL Alkaline Phosphatase 152 H (38-126) U/L Total Protein 4.7 L (6.3-8.2) g/dL Albumin 2.0 L (3.5-5.0) g/dL 07/07/18 07/07/18 07/07/18 Range/Units 05:06 06:02 07:06 WBC 22.2 H (3.8-10.6) k/uL RBC 3.86 L (4.30-5.90) m/uL Hgb 9.0 L (13.0-17.5) gm/dL Hct 28.6 L (39.0-53.0) % MCV 74.2 L (80.0-100.0) fL MCH 23.4 L (25.0-35.0) pg Neutrophils # 19.6 H (1.3-7.7) k/uL Glucose (74-99) mg/dL POC Glucose (mg/dL) 138 H 140 H (75-99) mg/dL Calcium (8.4-10.2) mg/dL Total Bilirubin (0.2-1.3) mg/dL Alkaline Phosphatase (38-126) U/L Total Protein (6.3-8.2) g/dL Albumin (3.5-5.0) g/dL 07/07/18 07/07/18 07/07/18 Range/Units 08:07 08:54 09:58 WBC (3.8-10.6) k/uL RBC (4.30-5.90) m/uL Hgb (13.0-17.5) gm/dL Hct (39.0-53.0) % MCV (80.0-100.0) fL MCH (25.0-35.0) pg Neutrophils # (1.3-7.7) k/uL Glucose (74-99) mg/dL POC Glucose (mg/dL) 132 H 136 H 120 H (75-99) mg/dL Calcium (8.4-10.2) mg/dL Total Bilirubin (0.2-1.3) mg/dL Alkaline Phosphatase (38-126) U/L Total Protein (6.3-8.2) g/dL Albumin (3.5-5.0) g/dL 07/07/18 07/07/18 07/07/18 Range/Units 11:52 12:11 17:58 WBC (3.8-10.6) k/uL RBC (4.30-5.90) m/uL Hgb (13.0-17.5) gm/dL Hct (39.0-53.0) % MCV (80.0-100.0) fL MCH (25.0-35.0) pg Neutrophils # (1.3-7.7) k/uL Glucose (74-99) mg/dL POC Glucose (mg/dL) 153 H 149 H 171 H (75-99) mg/dL Calcium (8.4-10.2) mg/dL Total Bilirubin (0.2-1.3) mg/dL Alkaline Phosphatase (38-126) U/L Total Protein (6.3-8.2) g/dL Albumin (3.5-5.0) g/dL Microbiology - Last 24 Hours (Table) 07/05/18 13:31 Gram Stain - Preliminary Abdomen Wound Culture - Preliminary Escherichia coli 07/05/18 00:30 Stool Culture - Preliminary Stool 07/04/18 16:06 Blood Culture Gram Stain - Preliminary Blood Blood Culture - Final Anaerobic Gm Negative Bacilli Laboratory Results WBC 22.2 k/uL (3.8-10.6) H 07/07/18 05:06 RBC 3.86 m/uL (4.30-5.90) L 07/07/18 05:06 Hgb 9.0 gm/dL (13.0-17.5) L 07/07/18 05:06 Hct 28.6 % (39.0-53.0) L 07/07/18 05:06 MCV 74.2 fL (80.0-100.0) L 07/07/18 05:06 MCH 23.4 pg (25.0-35.0) L 07/07/18 05:06 MCHC 31.6 g/dL (31.0-37.0) 07/07/18 05:06 RDW 14.7 % (11.5-15.5) 07/07/18 05:06 Plt Count 326 k/uL (150-450) 07/07/18 05:06 Neutrophils % 88 % 07/07/18 05:06 Neutrophils % (Manual) 86 % 07/06/18 04:00 Band Neutrophils % 4 % 07/06/18 04:00 Lymphocytes % 7 % 07/07/18 05:06 Lymphocytes % (Manual) 8 % 07/06/18 04:00 Monocytes % 3 % 07/07/18 05:06 Monocytes % (Manual) 2 % 07/06/18 04:00 Eosinophils % 0 % 07/07/18 05:06 Eosinophils % (Manual) 1 % 07/05/18 15:42 Basophils % 0 % 07/07/18 05:06 Metamyelocytes % 1 % 07/05/18 15:42 Myelocytes % 7 % 07/04/18 16:06 Neutrophils # 19.6 k/uL (1.3-7.7) H 07/07/18 05:06 Neutrophils # (Manual) 24.50 k/uL (1.3-7.7) H 07/06/18 04:00 Lymphocytes # 1.4 k/uL (1.0-4.8) 07/07/18 05:06 Lymphocytes # (Manual) 2.18 k/uL (1.0-4.8) 07/06/18 04:00 Monocytes # 0.7 k/uL (0-1.0) 07/07/18 05:06 Monocytes # (Manual) 0.55 k/uL (0-1.0) 07/06/18 04:00 Eosinophils # 0.1 k/uL (0-0.7) 07/07/18 05:06 Eosinophils # (Manual) 0.31 k/uL (0-0.7) 07/05/18 15:42 Basophils # 0.0 k/uL (0-0.2) 07/07/18 05:06 Metamyelocytes # (Man) 0.31 k/uL (0) H 07/05/18 15:42 Myelocytes # (Manual) 0.81 k/uL (0) H 07/04/18 16:06 Nucleated RBCs 0 /100 WBC (0-0) 07/06/18 04:00 Manual Slide Review Performed 07/06/18 04:00 Toxic Granulation Present 07/05/18 15:42 Toxic Vacuolation Present 07/05/18 15:42 Large Platelets Present 07/05/18 15:42 Polychromasia Present 07/05/18 05:05 Hypochromasia Slight 07/05/18 05:05 Microcytosis Slight 07/07/18 05:06 PT 13.6 sec (9.0-12.0) H 07/05/18 05:05 INR 1.3 (<1.2) H 07/05/18 05:05 APTT 25.7 sec (22.0-30.0) 07/05/18 05:05 Sample Site rra 07/05/18 15:33 ABG pH 7.41 (7.35-7.45) 07/05/18 15:33 ABG pCO2 40 mmHg (35-45) 07/05/18 15:33 ABG pO2 84 mmHg (83-108) 07/05/18 15:33 ABG HCO3 25 mmol/L (21-25) 07/05/18 15:33 ABG Total CO2 26 mmol/L (19-24) H 07/05/18 15:33 ABG O2 Saturation 96.5 % (94-97) 07/05/18 15:33 ABG Base Excess 0.3 mmol/L 07/05/18 15:33 Jonh Test Yes 07/05/18 15:33 FiO2 50 % 07/05/18 15:33 Sodium 139 mmol/L (137-145) 07/07/18 05:06 Potassium 3.6 mmol/L (3.5-5.1) 07/07/18 05:06 Chloride 105 mmol/L (98-107) 07/07/18 05:06 Carbon Dioxide 28 mmol/L (22-30) 07/07/18 05:06 Anion Gap 6 mmol/L 07/07/18 05:06 BUN 15 mg/dL (9-20) 07/07/18 05:06 Creatinine 0.83 mg/dL (0.66-1.25) 07/07/18 05:06 Est GFR (CKD-EPI)AfAm >90 (>60 ml/min/1.73 sqM) 07/07/18 05:06 Est GFR (CKD-EPI)NonAf >90 (>60 ml/min/1.73 sqM) 07/07/18 05:06 Glucose 105 mg/dL (74-99) H 07/07/18 05:06 POC Glucose (mg/dL) 171 mg/dL (75-99) H 07/07/18 17:58 POC Glu Technical Marketing Engineer ID Lala Felder 07/07/18 17:[address] Glu mg/dL 189 07/05/18 05:05 Hemoglobin A1c 8.2 % (4.0-6.0) H 07/05/18 05:05 Lactic Ac Sepsis Rflx Y 07/05/18 08:40 Plasma Lactic Acid Chay 2.9 mmol/L (0.7-2.0) H* 07/05/18 15:42 Calcium 7.3 mg/dL (8.4-10.2) L 07/07/18 05:06 Phosphorus 2.5 mg/dL (2.5-4.5) 07/07/18 05:06 Magnesium 1.7 mg/dL (1.6-2.3) 07/07/18 05:06 Total Bilirubin 1.7 mg/dL (0.2-1.3) H 07/07/18 05:06 AST 28 U/L (17-59) 07/07/18 05:06 ALT 36 U/L (21-72) 07/07/18 05:06 Alkaline Phosphatase 152 U/L (38-126) H 07/07/18 05:06 Troponin I <0.012 ng/mL (0.000-0.034) 07/04/18 16:06 Total Protein 4.7 g/dL (6.3-8.2) L 07/07/18 05:06 Albumin 2.0 g/dL (3.5-5.0) L 07/07/18 05:06 Urine Color Yellow 07/04/18 22:20 Urine Appearance Turbid (Clear) 07/04/18 22:20 Urine pH 5.5 (5.0-8.0) 07/04/18 22:20 Ur Specific Raymond 1.021 (1.001-1.035) 07/04/18 22:20 Urine Protein 2+ (Negative) H 07/04/18 22:20 Urine Glucose (UA) 2+ (Negative) H 07/04/18 22:20 Urine Ketones Trace (Negative) H 07/04/18 22:20 Urine Blood Moderate (Negative) H 07/04/18 22:20 Urine Nitrite Negative (Negative) 07/04/18 22:20 Urine Bilirubin Negative (Negative) 07/04/18 22:20 Urine Urobilinogen <2.0 mg/dL (<2.0) 07/04/18 22:20 Ur Leukocyte Esterase Trace (Negative) H 07/04/18 22:20 Urine RBC 11 /hpf (0-5) H 07/04/18 22:20 Urine WBC 28 /hpf (0-5) H 07/04/18 22:20 Urine WBC Clumps Many /hpf (None) H 07/04/18 22:20 Ur Squamous Epith Cells 2 /hpf (0-4) 07/04/18 22:20 Urine Bacteria Moderate /hpf (None) H 07/04/18 22:20 Granular Casts 949 /lpf (0) 07/04/18 22:20 Urine Mucus Rare /hpf (None) H 07/04/18 22:20 Vancomycin Trough 10.9 ug/mL 07/07/18 05:06 Influenza Type A RNA Not Detected (Not Detectd) 07/04/18 16:06 Influenza Type B (PCR) Not Detected (Not Detectd) 07/04/18 16:06 Microbiology 07/05/18 13:31 Abdomen Gram Stain - Preliminary 07/05/18 13:31 Abdomen Wound Culture - Preliminary Escherichia coli 07/05/18 00:30 Stool Stool Culture - Preliminary 07/04/18 16:06 Blood Blood Culture Gram Stain - Preliminary 07/04/18 16:06 Blood Blood Culture - Final Anaerobic Gm Negative Bacilli 07/04/18 22:20 Urine,Catheterized Urine Culture - Final 07/04/18 16:06 Blood Blood Culture - Final 07/04/18 18:30 Urine,Catheterized Urine Culture - Final 07/05/18 13:31 Abdomen Anaerobic Culture - Preliminary 07/05/18 13:31 Abdomen Fungal Culture - Preliminary Assessment and Plan (1) Intra-abdominal abscess Narrative/Plan: 43-year-old male presents with fever abdominal pain and about of lightheadedness and syncope was brought to hospital with evidence of sepsis. With abdominal pain and abnormality computed tomography scan shows evidence of the free air in the pelvis to go to the operating room for surgical intervention. Antibiotic therapy with Zosyn has been initiated for treatment of intra-abdominal sepsis related to his ruptured appendix. Vancomycin has been initiated and will likely be deescalated depending on culture results. Improvement of his glucose control will be important in helping him in the postoperative timeframe. Cultures will help determine the final course of antibiotic therapy as he improves. Postope ratively ongoing supportive care, initiating nutrition as soon as possible to allow further improvement of his status. 07/06/2018 the patient now is considerably improved. He has been extubated and has improved respiratory status. His mentation is also doing quite well. The blood cultures are positive for gram-negative bacilli as is the intra- abdominal abscess. Anaerobic pathogens also being seen. Antibiotic therapy with Zosyn continues we'll likely discontinue vancomycin within the next day because cultures become finalized. Follow blood cultures are processing negative so far. Continue supportive care. Nutrition as per the surgical team. 07/07/2018 patient is now feeling somewhat better. He is with controlled abdominal pain. Ice chips and then allowed. No fevers or chills. Cultures do show evidence of E. coli at intra-abdominal site as well as the anaerobic gram- negative bacilli in the blood culture. Continue Zosyn for now. Vancomycin likely discontinue tomorrow as the final cultures become available. Current Visit: Yes Status: Acute Code(s): K65.1 - PERITONEAL ABSCESS SNOM ED Code(s): 43662546 (2) Rupture of appendix Current Visit: Yes Status: Acute Code(s): K35.32 - ACUTE APPENDICITIS WITH PERF AND LOC PERITONITIS, W/O ABSCS SNOMED Code(s): 05968411 (3) Syncope Current Visit: No Status: Acute Code(s): R55 - SYNCOPE AND COLLAPSE SNOMED Code(s): 591900615
[2018-07-08 00:04] LABS: Glucose,Whole Blood 129 mg/dL (75-99)
[2018-07-08] MEDS: PIPERACILLIN-TAZOBACTAM 3.375 GM in SODIUM CHLORIDE 0.9% 100 ML IVPB SCH ×3 (00:11→15:32)
[2018-07-08] MEDS: MORPHINE SULFATE 4 MG/ML SYRINGE IV PRN (00:14)
[2018-07-08] MEDS: SODIUM CHLORIDE 0.9% 1,000 ML IV SCH ×3 (01:36→17:40)
[2018-07-08] MEDS: VANCOMYCIN 1,750 MG in SODIUM CHLORIDE 0.9% 500 ML 500 ML IVPB SCH ×2 (06:29→13:48)
[2018-07-08] MEDS: INSULIN ASPART (NovoLOG) 100 UNIT/ML VIAL SQ SCH ×3 (06:29→17:39)
[2018-07-08 06:38] LABS: Glucose,Whole Blood 168 mg/dL (75-99)
[2018-07-08] MEDS: INSULIN DETEMIR (LEVEMIR) 100 UNIT/ML SYR SQ SCH (08:42)
[2018-07-08] MEDS: FAMOTIDINE 20 MG/2 ML VIAL IV SCH ×2 (08:42→21:13)
--- NOTE | 2018-07-08 09:46 | P.PN ---
Subjective This is a pleasant 43 years old male with past medical history of diabetes mellitus, hypertension, seizure disorder, supraventricular tachycardia. Came originally on 07/04/2018 for feeling lethargic with Palpitation. EKG Showed Supraventricular Tachycardia That Was not been complicated initially. Patient also was complaining from abdominal discomfort. On the presentation his WBC was 11.6, went up to 31.1 hemoglobin 10.3, down from 12.1, currently creatinine is 1.1, he has lactic acid on the presentation 2.4 and 2.9. Liver enzymes are nor mal limits including AST and ALT. He had CAT scan of the abdomen which showed abdominal abscess with ruptured appendix. Surgical team has been consulted and patient underwent exploratory laparotomy with right colectomy. And drainage of the retroperitoneal abscess. Today is postop day #0. Patient has been evaluated by infectious disease also, he was treated with Zosyn and IV vancomycin. Upon ID recommendation. His his worsening kidney function to present acute kidney injury secondary to sepsis and acute tubular necrosis. 07/06/2018 patient is a status post right colectomy for ruptured appendicitis. Today is postop day #1. Patient abdominal pain is controlled. He remains in the ICU. He still nothing by mouth. He is passing gases only but no bowel movement. He denies chest pain or dyspnea.vitals were reviewed, patient is tachycardic and tachypneic. However his blood pressure is controlled and he is saturating 97% on 4 L of oxygen.WBC is 27.3K. Sugar controlled, with mild hypokalemia.he was placed on normal saline 125 mL/h 07/07/2018 patient is a status post right colectomy for ruptured appendicitis. Today is postop day #2. Patient is passing gases. Patient is controlled at the surgical site. No chest pain or dyspnea. vitals are sTable. No urinary problem. As WBC of 20 2.2K. Creatinine is normal. Wound is growing E. coli and blood culture showing gram-negative bacilli. Patient currently on Zosyn and vancomycin. 07/08/2018 Patient remains in the ICU and selective overflow. patient is a status post right colectomy for ruptured appendicitis. Today is postop day #3. Patient remains nothing by mouth except for as chips. He is passing flatus but no bowel movement yet. His abdominal pain is being controlled. Surgical team following the case closely. Also critical care/pulmonary team. Vital signs stable patient is growing E. coli in the wound culture and Bacteroides fragilis and the blood culture. Infectious disease team are following the patient closely and he is currently on vancomycin and Zosyn. Objective - Vital Signs Vital signs: Vital Signs Temp 97.7 F 07/08/18 07:00 Pulse 99 07/08/18 07:00 Resp 18 07/08/18 07:00 BP 158/89 07/08/18 07:00 Pulse Ox 95 07/08/18 07:00 Intake & Output 07/07/18 07/08/18 07/08/18 18:59 06:59 18:59 Intake Total 2710.360 942 Output Total 840 100 Balance 1870.360 842 Intake: IV 2685 942 Magnesium Sulfate-D5w Pmx 100 1 gm In Dextrose/Water 1 100ml.bag @ 100 mls/hr IVPB Q1H [facility] Rx#: [id number] Normal saline 1500 750 Piperacillin-Tazobactam 3 150 25 .375 gm In Sodium Chloride 0.9% 100 ml @ 25 mls/hr IVPB Q8HR [facility] Rx# :[id number] Potassium Chloride 10 meq 100 In Water For Injection 1 100ml.bag @ 100 mls/hr IVPB Q1H [facility] Rx#: [id number] Vancomycin 2,000 mg In 835 167 Sodium Chloride 0.9% 500 ml 500 ml @ 167 mls/hr IVPB Q12H [facility] Rx#: [id number] Intake, IV Titration 25.360 Amount Insulin Regular 100 unit 25.360 In Sodium Chloride 0.9% 100 ml @ Per Protocol IV .Q0M [facility] Rx#:[id number] Output: Drainage 90 Right Lower Abdomen 90 Urine 750 100 Other: Voiding Method Indwelling Catheter Indwelling Catheter # Voids 1 - Exam GENERAL: The patient is alert and oriented x3, obese HEENT: Pupils are round and equally reacting to light. EOMI. No scleral icterus. No conjunctival pallor. Normocephalic, atraumatic. No pharyngeal erythema. No thyromegaly. CARDIOVASCULAR: S1 and S2 present. No murmurs, rubs, or gallops. PULMONARY: Chest is clear to auscultation, no wheezing or crackles. -ABDOMEN: Soft, nontender, nondistended, normoactive bowel sounds. No palpable organomegaly. midline incision is closed with shawna is in a Place. MUSCULOSKELETAL: No joint swelling or deformity. EXTREMITIES: No cyanosis, clubbing, or pedal edema. NEUROLOGICAL: Gross neurological examination did not reveal any focal deficits. SKIN: No rashes. - Labs CBC & Chem 7: 07/07/18 05:06 07/07/18 05:06 Labs: Abnormal Lab Results - Last 24 Hours (Table) 07/07/18 07/07/18 07/07/18 Range/Units 09:58 11:52 12:11 POC Glucose (mg/dL) 120 H 153 H 149 H (75-99) mg/dL 07/07/18 07/07/18 07/08/18 Range/Units 17:58 23:52 06:26 POC Glucose (mg/dL) 171 H 129 H 168 H (75-99) mg/dL Microbiology - Last 24 Hours (Table) 07/05/18 13:31 Gram Stain - Final Abdomen Wound Culture - Final Escherichia coli 07/04/18 16:06 Blood Culture Gram Stain - Final Blood Blood Culture - Final Bacteroides fragilis 07/05/18 00:30 Stool Culture - Preliminary Stool Assessment and Plan Assessment: Ruptured appendix with intra-abdominal abscess Severe sepsis secondary to above Patient is status post exploratory laparotomy and right colectomy History of diabetes mellitus History of hypertension History of seizure disorder Supraventricular tachycardia Plan: This is a 43 years old male who presents with sepsis secondary to ruptured appendicitis, status post right colectomy. Patient has been followed by several consultants including surgery, critical care team, infectious disease team. Continue with the same antibiotics as per ID team recommendation. Continue pain management. Labs and medication were reviewed.. Continue same treatment. Continue with symptomatic treatment. Resume home medication. Monitor lytes and vitals. DVT and GI prophylaxis. Further recommendations of the clinical course of the patient DVT prophylaxis: no heparin for now. GI Prophylaxis: Ppi Prognosis is guarded
--- NOTE | 2018-07-08 09:54 | PN ---
PROGRESS NOTE This is a 43-year-old gentleman with history of acute abdominal sepsis secondary to ruptured appendix with peritonitis. The patient is postop day #3. He was admitted to the hospital on July 04. He went to the operating room on the . He had a right- sided colectomy with washout. The patient also developed acute kidney injury secondary to ATN, had recurrent episodes of syncope secondary to sepsis and hypotension, diabetes mellitus, hypertension, seizure disorder, and previous history of SVT. Currently, he is doing reasonably well. He is sitting upright in a chair. Doing well on his incentive spirometer. Currently on O2 at 2 L by nasal cannula. His IV is 0.9 at 125 an hour. His blood cultures were positive for Bacteroides fragilis. His abdominal wound cultures were positive for Escherichia coli. He remains on vancomycin and Zosyn. He feels relatively good. Seems stable, upbeat, is very talkative. Current vital signs reviewed. Temperature 97.7, heart rate 99, respiratory rate 18, blood pressure 158/89, mean 112 and 2 L saturation 95%. Appears in no acute distress. Nasal O2 in place. HEENT examination is grossly unremarkable. NECK: Supple. Full range of motion. No adenopathy or thyromegaly. Neck veins are flat. Cardiovascular examination reveals regular rhythm and rate. Heart rate about 100. S1, S2 normal. No S3, S4, or murmur. Lungs reveal a few scattered rhonchi. No wheezes or crackles. Breath sounds equal bilaterally but diminished throughout. Abdomen is obese. Bowel sounds are heard. Extremities are intact. No cyanosis, clubbing, or edema. Skin without rash. Neurologic examination is brief but nonfocal. Microbiologic study show E coli in wound culture back from July 05 and blood cultures from the , which were positive for Bacteroides fragilis. Labs are reviewed. Nothing from today as yet. From yesterday, the white count 22.2, hemoglobin 9, hematocrit 28.6, platelet count is normal. Also from yesterday, sodium, potassium, chloride, CO2, anion gap, BUN and creatinine were all normal. Influenza studies were negative. Medications are reviewed. ASSESSMENT: 1. Postoperative day #3, status post exploratory laparotomy, right-sided colectomy and washout secondary to acute abdominal sepsis secondary to ruptured appendix with peritonitis. 2. Severe lactic acidosis, improved. 3. Acute kidney injury with acute tubular necrosis, resolved. 4. Syncope, secondary to sepsis and hypotension, resolved. 5. Type 2 diabetes mellitus. 6. Hypertension. 7. Seizure disorder. 8. Supraventricular tachycardia. 9. Obesity. PLAN: The patient is doing reasonably well. From my perspective, the patient could be transferred out to the floor. The patient continues on oxygen, that is being titrated down. We encourage the patient do deep breathe, cough, and clear secretions as well as use his incentive spirometer q.1 hour. Infectious Disease is on the case. He is on good antibiotics in the form of vancomycin and Zosyn. We will continue to follow. MMODL / IJN: [id number] /
[2018-07-08 10:06] VITALS: BMI 42.5
--- NOTE | 2018-07-08 11:30 | P.PN ---
Subjective Progress Note Date: 07/08/18 HISTORY OF PRESENT ILLNESS: 43-year-old male who underwent exploratory laparotomy, right colectomy, and drainage of retroperitoneal abscess secondary to ruptured appendicitis. POD #3. Patient reports his pain is tolerable at this time. Patient states he is up in the chair for a few hours this morning. He is currently laying in bed. Patient reports passing a lot of flatus. Denies bowel movement. Tolerating ice chips. Patient reports using his incentive spirometer 10 times an hour. Currently pulling 1000 mL. Labs from this morning are currently pending. PHYSICAL EXAM: VITAL SIGNS: Reviewed. GENERAL: Well-developed in no acute distress. HEENT: No sclera icterus. Extraocular movements grossly intact. Moist buccal mucosa. Head is atraumatic, normocephalic. ABDOMEN: Soft. Nondistended. KAROLYN drain intact with serosanguineous drainage. Dressing intact to midline incision. NEUROLOGIC: Alert and oriented. Cranial nerves II through XII grossly intact. ASSESSMENT: 1. S/P exploratory laparotomy, right colectomy, and drainage of retroperitoneal abscess secondary to ruptured appendicitis PLAN: 1. Begin clear liquid diet 2. Activity as tolerated 3. Pain control 4. Incentive spirometry 5. Monitor WBC. Continue antibiotics. Nurse practitioner note has been reviewed by physician. Signing provider agrees with the documented findings, assessment, and plan of care. Objective - Vital Signs Vital signs: Vital Signs Temp 97.7 F 07/08/18 07:00 Pulse 99 07/08/18 07:00 Resp 18 07/08/18 07:00 BP 158/89 07/08/18 07:00 Pulse Ox 95 07/08/18 07:00 Intake & Output 07/07/18 07/08/18 07/08/18 18:59 06:59 18:59 Intake Total 2710.360 942 Output Total 840 100 Balance 1870.360 842 Weight 142.3 kg Intake: IV 2685 942 Magnesium Sulfate-D5w Pmx 100 1 gm In Dextrose/Water 1 100ml.bag @ 100 mls/hr IVPB Q1H [facility] Rx#: [id number] Normal saline 1500 750 Piperacillin-Tazobactam 3 150 25 .375 gm In Sodium Chloride 0.9% 100 ml @ 25 mls/hr IVPB Q8HR [facility] Rx# :[id number] Potassium Chloride 10 meq 100 In Water For Injection 1 100ml.bag @ 100 mls/hr IVPB Q1H [facility] Rx#: [id number] Vancomycin 2,000 mg In 835 167 Sodium Chloride 0.9% 500 ml 500 ml @ 167 mls/hr IVPB Q12H [facility] Rx#: [id number] Intake, IV Titration 25.360 Amount Insulin Regular 100 unit 25.360 In Sodium Chloride 0.9% 100 ml @ Per Protocol IV .Q0M [facility] Rx#:[id number] Output: Drainage 90 Right Lower Abdomen 90 Urine 750 100 Other: Voiding Method Indwelling Catheter Indwelling Catheter # Voids 1 - Labs CBC & Chem 7: 07/07/18 05:06 07/07/18 05:06 Labs: Abnormal Lab Results - Last 24 Hours (Table) 07/07/18 07/07/18 07/07/18 Range/Units 11:52 12:11 17:58 POC Glucose (mg/dL) 153 H 149 H 171 H (75-99) mg/dL 07/07/18 07/08/18 Range/Units 23:52 06:26 POC Glucose (mg/dL) 129 H 168 H (75-99) mg/dL Microbiology - Last 24 Hours (Table) 07/05/18 00:30 Stool Culture - Final Stool 07/05/18 13:31 Gram Stain - Final Abdomen Wound Culture - Final Escherichia coli 07/04/18 16:06 Blood Culture Gram Stain - Final Blood Blood Culture - Final Bacteroides fragilis
[2018-07-08 11:56] LABS: Glucose,Whole Blood 145 mg/dL (75-99)
[2018-07-08 12:29] LABS: Anion Gap 7 mmol/L; Blood Urea Nitrogen 17 mg/dL (9-20); Calcium 8.1 mg/dL (8.4-10.2); Carbon Dioxide 23 mmol/L (22-30); Chloride 109 mmol/L (98-107); Glucose 136 mg/dL (74-99); Potassium 4.4 mmol/L (3.5-5.1); Sodium 139 mmol/L (137-145)
[2018-07-08] MEDS ORDERED: VANCOMYCIN TROUGH DUE 1 EACH MISC MISCELLANE ONE (13:00)
[2018-07-08] MEDS: HYDROmorphone 1 MG/ML 1 ML SYRINGE IVP PRN ×2 (13:47→21:34)
[2018-07-08 14:54] LABS: HCT 29.2 % (39.0-53.0); HGB 8.9 gm/dL (13.0-17.5); MCHC 30.6 g/dL (31.0-37.0); MCV 75.2 fL (80.0-100.0); Mean Platelet Volume 8.1; Microcytosis Slight; Platelet Count 381 k/uL (150-450); RBC 3.88 m/uL (4.30-5.90); RDW 15.1 % (11.5-15.5); WBC 24.6 k/uL (3.8-10.6)
[2018-07-08 15:15] LABS: Monocytes # (M) 0.98 k/uL (0-1.0); Neutrophils # (M) 20.42 k/uL (1.3-7.7); Neutrophils % (M) 83 %; Nucleated Red Blood Cells 0 /100 WBC (0-0); Total Cells Counted 100
[2018-07-08 17:44] LABS: Glucose,Whole Blood 182 mg/dL (75-99)
[2018-07-08] MEDS: VANCOMYCIN 2,000 MG in SODIUM CHLORIDE 0.9% 500 ML 500 ML IVPB SCH (21:14)
--- NOTE | 2018-07-08 22:01 | P.PN ---
Subjective Progress Note Date: 07/08/18 This is a 43-year-old male who gives history of having an uncomfortable feeling in his abdomen but no real pain for the past week as well as fever and chills and diarrhea. Pain was in the right middle abdomen. He states he was feeling lightheaded ended up passing out hitting his face on the ground and his son made him come into the hospital for evaluation. Patient was found to have a temperature of 101.6, tachycardia, blood pressure was stable at 139/55, pulse ox 96 on 2 L. White count initially 11.6 and now at 36.8, hemoglobin 9.9, Pletal count 341. Creatinine 1.31 with repeat of 1.5. Magnesium 0.9, CO2 14, lactic acid 9.7. Influenza testing was negative. Total bilirubin 1.5, alkaline phosphatase 365, albumin 2.8. Urinalysis showed some blood and white cells. Blood cultures status received as well as urine culture. CAT scan of the chest abdomen and pelvis showed appendix with rupture. Chest x-ray patchy medial basilar atelectasis and or developing pneumonia. Patient w as given a dose of cefepime and vancomycin, continued on vancomycin and admitted into the intensive care unit. He has been on sodium bicarb drip, Sorensen catheter has been placed. He has not required vasopressors. Surgery is scheduled for today. Patient is a jtb-nbepnwc-viizjnsts diabetic and he states his last physical when A1c was 7.2. 07/06/2018 patient is now considerably improved from the last evaluation. He is now been extubated. Sitting upright is history comfortable. Lasix his abdom inal pain is under quite good control. Denies other new acute complaints at this time. 07/07/2018 patient has further improvement. Extubated, comfortable, is having some ice chips and is pleased with that. Abdominal pain is improved. No other acute new complaints. No nausea or emesis positive flatus. 07/08/2018 patient has further improvement. He is ingesting clear liquids looks forward to advancing his diet. Abdominal pain is resolved Objective - Vital Signs Vital signs: Vital Signs Temp 98.0 F 07/08/18 15:00 Pulse 110 H 07/08/18 15:00 Resp 16 07/08/18 15:00 BP 144/92 07/08/18 15:00 Pulse Ox 94 L 07/08/18 15:00 Intake & Output 07/08/18 07/08/18 07/09/18 06:59 18:59 06:59 Intake Total 942 1475 Output Total 100 60 Balance 842 1415 Weight 142.3 kg Intake: IV 942 1475 Normal saline 750 875 Piperacillin-Tazobactam 3 25 100 .375 gm In Sodium Chloride 0.9% 100 ml @ 25 mls/hr IVPB Q8HR [facility] Rx# :[id number] Vancomycin 1,750 mg In 500 Sodium Chloride 0.9% 500 ml 500 ml @ 167 mls/hr IVPB Q8H [facility] Rx#: [id number] Vancomycin 2,000 mg In 167 Sodium Chloride 0.9% 500 ml 500 ml @ 167 mls/hr IVPB Q12H [facility] Rx#: [id number] Output: Drainage 60 Right Lower Abdomen 60 Urine 100 Other: Voiding Method Indwelling Catheter Bedside Commode # Voids 1 2 # Bowel Movements 1 - Exam Gen: This is a morbidly obese 43-year-old male. He is resting in the ICU bed and appears to be comfortable and in no acute distress. Was extubated later yesterday after his surgical intervention HEENT: Head is atraumatic, normocephalic. Pupils equal, round. Sclerae is anicteric. Conjunctiva pink. Mucous members of the mouth are somewhat dry. Dentition is in very poor order. No thrush noted. There are white patches on the tonsillar area. NECK: Supple. No JVD. No lymphadenopathy. No thyromegaly. LUNGS: Diminished breath sounds. No wheezes or rhonchi. No intercostal retractions. HEART: Regular rate and rhythm. No murmur. ABDOMEN: Soft. Morbidly obese. Bowel sounds are few. No masses. Right sided tenderness. Sorensen catheter draining clear nithin urine. EXTREMITIES: No pedal edema. No calf tenderness. Dorsalis pedis +2 bilaterally. NEUROLOGICAL: Patient is awake, alert and oriented x3. - Labs CBC & Chem 7: 07/08/18 13:45 07/08/18 11:19 Labs: Abnormal Lab Results - Last 24 Hours (Table) 07/07/18 07/08/18 07/08/18 Range/Units 23:52 06:26 11:19 WBC (3.8-10.6) k/uL RBC (4.30-5.90) m/uL Hgb (13.0-17.5) gm/dL Hct (39.0-53.0) % MCV (80.0-100.0) fL MCH (25.0-35.0) pg MCHC (31.0-37.0) g/dL Neutrophils # (Manual) (1.3-7.7) k/uL Chloride 109 H (98-107) mmol/L Glucose 136 H (74-99) mg/dL POC Glucose (mg/dL) 129 H 168 H (75-99) mg/dL Calcium 8.1 L (8.4-10.2) mg/dL 07/08/18 07/08/18 07/08/18 Range/Units 11:44 13:45 17:26 WBC 24.6 H (3.8-10.6) k/uL RBC 3.88 L (4.30-5.90) m/uL Hgb 8.9 L (13.0-17.5) gm/dL Hct 29.2 L (39.0-53.0) % MCV 75.2 L (80.0-100.0) fL MCH 23.0 L (25.0-35.0) pg MCHC 30.6 L (31.0-37.0) g/dL Neutrophils # (Manual) 20.42 H (1.3-7.7) k/uL Chloride (98-107) mmol/L Glucose (74-99) mg/dL POC Glucose (mg/dL) 145 H 182 H (75-99) mg/dL Calcium (8.4-10.2) mg/dL Microbiology - Last 24 Hours (Table) 07/05/18 13:31 Anaerobic Culture - Preliminary Abdomen Anaerobic Gram Positive Cocci Anaerobic Gm Negative Bacilli 07/05/18 00:30 Stool Culture - Final Stool 07/05/18 13:31 Gram Stain - Final Abdomen Wound Culture - Final Escherichia coli 07/04/18 16:06 Blood Culture Gram Stain - Final Blood Blood Culture - Final Bacteroides fragilis Laboratory Results WBC 24.6 k/uL (3.8-10.6) H 07/08/18 13:45 RBC 3.88 m/uL (4.30-5.90) L 07/08/18 13:45 Hgb 8.9 gm/dL (13.0-17.5) L 07/08/18 13:45 Hct 29.2 % (39.0-53.0) L 07/08/18 13:45 MCV 75.2 fL (80.0-100.0) L 07/08/18 13:45 MCH 23.0 pg (25.0-35.0) L 07/08/18 13:45 MCHC 30.6 g/dL (31.0-37.0) L 07/08/18 13:45 RDW 15.1 % (11.5-15.5) 07/08/18 13:45 Plt Count 381 k/uL (150-450) 07/08/18 13:45 Neutrophils % 88 % 07/07/18 05:06 Neutrophils % (Manual) 83 % 07/08/18 13:45 Band Neutrophils % 4 % 07/06/18 04:00 Lymphocytes % 7 % 07/07/18 05:06 Lymphocytes % (Manual) 13 % 07/08/18 13:45 Monocytes % 3 % 07/07/18 05:06 Monocytes % (Manual) 4 % 07/08/18 13:45 Eosinophils % 0 % 07/07/18 05:06 Eosinophils % (Manual) 1 % 07/05/18 15:42 Basophils % 0 % 07/07/18 05:06 Metamyelocytes % 1 % 07/05/18 15:42 Myelocytes % 7 % 07/04/18 16:06 Neutrophils # 19.6 k/uL (1.3-7.7) H 07/07/18 05:06 Neutrophils # (Manual) 20.42 k/uL (1.3-7.7) H 07/08/18 13:45 Lymphocytes # 1.4 k/uL (1.0-4.8) 07/07/18 05:06 Lymphocytes # (Manual) 3.20 k/uL (1.0-4.8) 07/08/18 13:45 Monocytes # 0.7 k/uL (0-1.0) 07/07/18 05:06 Monocytes # (Manual) 0.98 k/uL (0-1.0) 07/08/18 13:45 Eosinophils # 0.1 k/uL (0-0.7) 07/07/18 05:06 Eosinophils # (Manual) 0.31 k/uL (0-0.7) 07/05/18 15:42 Basophils # 0.0 k/uL (0-0.2) 07/07/18 05:06 Metamyelocytes # (Man) 0.31 k/uL (0) H 07/05/18 15:42 Myelocytes # (Manual) 0.81 k/uL (0) H 07/04/18 16:06 Nucleated RBCs 0 /100 WBC (0-0) 07/08/18 13:45 Manual Slide Review Performed 07/06/18 04:00 Toxic Granulation Present 07/05/18 15:42 Toxic Vacuolation Present 07/05/18 15:42 Large Platelets Present 07/05/18 15:42 Polychromasia Present 07/05/18 05:05 Hypochromasia Slight 07/05/18 05:05 Microcytosis Slight 07/08/18 13:45 PT 13.6 sec (9.0-12.0) H 07/05/18 05:05 INR 1.3 (<1.2) H 07/05/18 05:05 APTT 25.7 sec (22.0-30.0) 07/05/18 05:05 Sample Site rra 07/05/18 15:33 ABG pH 7.41 (7.35-7.45) 07/05/18 15:33 ABG pCO2 40 mmHg (35-45) 07/05/18 15:33 ABG pO2 84 mmHg (83-108) 07/05/18 15:33 ABG HCO3 25 mmol/L (21-25) 07/05/18 15:33 ABG Total CO2 26 mmol/L (19-24) H 07/05/18 15:33 ABG O2 Saturation 96.5 % (94-97) 07/05/18 15:33 ABG Base Excess 0.3 mmol/L 07/05/18 15:33 Jonh Test Yes 07/05/18 15:33 FiO2 50 % 07/05/18 15:33 Sodium 139 mmol/L (137-145) 07/08/18 11:19 Potassium 4.4 mmol/L (3.5-5.1) 07/08/18 11:19 Chloride 109 mmol/L (98-107) H 07/08/18 11:19 Carbon Dioxide 23 mmol/L (22-30) 07/08/18 11:19 Anion Gap 7 mmol/L 07/08/18 11:19 BUN 17 mg/dL (9-20) 07/08/18 11:19 Creatinine 0.66 mg/dL (0.66-1.25) 07/08/18 11:19 Est GFR (CKD-EPI)AfAm >90 (>60 ml/min/1.73 sqM) 07/08/18 11:19 Est GFR (CKD-EPI)NonAf >90 (>60 ml/min/1.73 sqM) 07/08/18 11:19 Glucose 136 mg/dL (74-99) H 07/08/18 11:19 POC Glucose (mg/dL) 182 mg/dL (75-99) H 07/08/18 17:26 POC Glu Ceo Na ID Filomena Merida 07/08/18 17:[address] Glu mg/dL 189 07/05/18 05:05 Hemoglobin A1c 8.2 % (4.0-6.0) H 07/05/18 05:05 Lactic Ac Sepsis Rflx Y 07/05/18 08:40 Plasma Lactic Acid Chay 2.9 mmol/L (0.7-2.0) H* 07/05/18 15:42 Calcium 8.1 mg/dL (8.4-10.2) L 07/08/18 11:19 Phosphorus 2.5 mg/dL (2.5-4.5) 07/07/18 05:06 Magnesium 1.6 mg/dL (1.6-2.3) 07/08/18 11:19 Total Bilirubin 1.7 mg/dL (0.2-1.3) H 07/07/18 05:06 AST 28 U/L (17-59) 07/07/18 05:06 ALT 36 U/L (21-72) 07/07/18 05:06 Alkaline Phosphatase 152 U/L (38-126) H 07/07/18 05:06 Troponin I <0.012 ng/mL (0.000-0.034) 07/04/18 16:06 Total Protein 4.7 g/dL (6.3-8.2) L 07/07/18 05:06 Albumin 2.0 g/dL (3.5-5.0) L 07/07/18 05:06 Urine Color Yellow 07/04/18 22:20 Urine Appearance Turbid (Clear) 07/04/18 22:20 Urine pH 5.5 (5.0-8.0) 07/04/18 22:20 Ur Specific [place] 1.021 (1.001-1.035) 07/04/18 22:20 Urine Protein 2+ (Negative) H 07/04/18 22:20 Urine Glucose (UA) 2+ (Negative) H 07/04/18 22:20 Urine Ketones Trace (Negative) H 07/04/18 22:20 Urine Blood Moderate (Negative) H 07/04/18 22:20 Urine Nitrite Negative (Negative) 07/04/18 22:20 Urine Bilirubin Negative (Negative) 07/04/18 22:20 Urine Urobilinogen <2.0 mg/dL (<2.0) 07/04/18 22:20 Ur Leukocyte Esterase Trace (Negative) H 07/04/18 22:20 Urine RBC 11 /hpf (0-5) H 07/04/18 22:20 Urine WBC 28 /hpf (0-5) H 07/04/18 22:20 Urine WBC Clumps Many /hpf (None) H 07/04/18 22:20 Ur Squamous Epith Cells 2 /hpf (0-4) 07/04/18 22:20 Urine Bacteria Moderate /hpf (None) H 07/04/18 22:20 Granular Casts 949 /lpf (0) 07/04/18 22:20 Urine Mucus Rare /hpf (None) H 07/04/18 22:20 Vancomycin Trough 14.1 ug/mL 07/08/18 13:29 Influenza Type A RNA Not Detected (Not Detectd) 07/04/18 16:06 Influenza Type B (PCR) Not Detected (Not Detectd) 07/04/18 16:06 Microbiology 07/05/18 13:31 Abdomen Anaerobic Culture - Preliminary Anaerobic Gram Positive Cocci Anaerobic Gm Negative Bacilli 07/05/18 00:30 Stool Stool Culture - Final 07/05/18 13:31 Abdomen Gram Stain - Final 07/05/18 13:31 Abdomen Wound Culture - Final Escherichia coli 07/04/18 16:06 Blood Blood Culture Gram Stain - Final 07/04/18 16:06 Blood Blood Culture - Final Bacteroides fragilis 07/04/18 22:20 Urine,Catheterized Urine Culture - Final 07/04/18 16:06 Blood Blood Culture - Final 07/04/18 18:30 Urine,Catheterized Urine Culture - Final 07/05/18 13:31 Abdomen Fungal Culture - Preliminary Assessment and Plan (1) Intra-abdominal abscess Narrative/Plan: 43-year-old male presents with fever abdominal pain and about of lightheadedness and syncope was brought to hospital with evidence of sepsis. With abdominal pain and abnormality computed tomography scan shows evidence of the free air in the pelvis to go to the operating room for surgical intervention. Antibiotic therapy with Zosyn has been initiated for treatment of intra-abdominal sepsis related to his ruptured appendix. Vancomycin has been initiated and will likely be deescalated depending on culture results. Improvement of his glucose control will be important in helping him in the postoperative timeframe. Cultures will help determine the final course of antibiotic therapy as he improves. Postoperatively ongoing supportive care, initiating nutrition as soon as possible to allow further improvement of his status. 07/06/2018 the patient now is considerably improved. He has been extubated and has improved respiratory status. His mentation is also doing quite well. The blood cultures are positive for gram-negative bacilli as is the intra- abdominal abscess. Anaerobic pathogens also being seen. Antibiotic therapy with Zosyn continues we'll likely discontinue vancomycin within the next day because cultures become finalized. Follow blood cultures are processing negative so far. Continue supportive care. Nutrition as per the surgical team. 07/07/2018 patient is now feeling somewhat better. He is with controlled abdominal pain. Ice chips and then allowed. No fevers or chills. Cultures do show evidence of E. coli at intra-abdominal site as well as the anaerobic gram- negative bacilli in the blood culture. Continue Zosyn for now. Vancomycin likely discontinue tomorrow as the final cultures become available. 07/08/2018 patient continues to improve. Blood culture was anaerobic bacteria with Bacteroides. Intra-abdominal culture with E. coli and anaerobic gram-negative pathogens. Patient is responding very well to Zosyn at this point in time. Once the patient has regained gastrointestinal function there is a possibility of completing his course of therapy with a combination of Levaquin and Flagyl which could be oral. Current Visit: Yes Status: Acute Code(s): K65.1 - PERITONEAL ABSCESS SNOMED Code(s): 95060572 (2) Rupture of appendix Current Visit: Yes Status: Acute Code(s): K35.32 - ACUTE APPENDICITIS WITH PERF AND LOC PERITONITIS, W/O ABSCS SNOMED Code(s): 87798289 (3) Syncope Current Visit: No Status: Acute Code(s): R55 - SYNCOPE AND COLLAPSE SNOMED Code(s): 698613404
[2018-07-09 00:10] LABS: Glucose,Whole Blood 165 mg/dL (75-99)
[2018-07-09] MEDS: PIPERACILLIN-TAZOBACTAM 3.375 GM in SODIUM CHLORIDE 0.9% 100 ML IVPB SCH ×3 (00:34→15:21)
[2018-07-09] MEDS: INSULIN ASPART (NovoLOG) 100 UNIT/ML VIAL SQ SCH ×4 (00:34→17:34)
[2018-07-09] MEDS: SODIUM CHLORIDE 0.9% 1,000 ML IV SCH ×3 (00:35→17:35)
[2018-07-09 05:26] LABS: Glucose,Whole Blood 130 mg/dL (75-99)
[2018-07-09] MEDS: VANCOMYCIN 2,000 MG in SODIUM CHLORIDE 0.9% 500 ML 500 ML IVPB SCH ×3 (05:28→22:16)
[2018-07-09 05:47] LABS: Anion Gap 6 mmol/L; Blood Urea Nitrogen 10 mg/dL (9-20); Calcium 7.7 mg/dL (8.4-10.2); Carbon Dioxide 25 mmol/L (22-30); Chloride 103 mmol/L (98-107); Glucose 123 mg/dL (74-99); Potassium 3.2 mmol/L (3.5-5.1); Sodium 134 mmol/L (137-145)
[2018-07-09 05:58] LABS: Basophils # (A) 0.2 k/uL (0-0.2); Basophils % (A) 1 %; Eosinophils # (A) 0.3 k/uL (0-0.7); Eosinophils % (A) 1 %; HGB 9.3 gm/dL (13.0-17.5); Hypochromasia Slight; Lymphocytes # (A) 1.5 k/uL (1.0-4.8); Lymphocytes % (A) 7 %; MCH 24.6 pg (25.0-35.0); MCHC 33.3 g/dL (31.0-37.0); MCV 73.9 fL (80.0-100.0); Mean Platelet Volume 7.9; Microcytosis Slight; Monocytes % (A) 4 %; Neutrophils % (A) 86 %; Platelet Count 356 k/uL (150-450); RBC 3.79 m/uL (4.30-5.90); RDW 14.9 % (11.5-15.5); WBC 23.4 k/uL (3.8-10.6)
[2018-07-09] MEDS: POTASSIUM CHLORIDE 20 MEQ in WATER FOR INJECTION 1 100ML.BAG IVPB SCH ×2 (06:40→08:42)
[2018-07-09] MEDS: FAMOTIDINE 20 MG/2 ML VIAL IV SCH ×2 (08:42→22:13)
[2018-07-09] MEDS: INSULIN DETEMIR (LEVEMIR) 100 UNIT/ML SYR SQ SCH (08:42)
--- NOTE | 2018-07-09 09:26 | P.PN ---
Subjective This is a pleasant 43 years old male with past medical history of diabetes mellitus, hypertension, seizure disorder, supraventricular tachycardia. Came originally on 07/04/2018 for feeling lethargic with Palpitation. EKG Showed Supraventricular Tachycardia That Was not been complicated initially. Patient also was complaining from abdominal discomfort. On the presentation his WBC was 11.6, went up to 31.1 hemoglobin 10.3, down from 12.1, currently creatinine is 1.1, he has lactic acid on the presentation 2.4 and 2.9. Liver enzymes are nor mal limits including AST and ALT. He had CAT scan of the abdomen which showed abdominal abscess with ruptured appendix. Surgical team has been consulted and patient underwent exploratory laparotomy with right colectomy. And drainage of the retroperitoneal abscess. Today is postop day #0. Patient has been evaluated by infectious disease also, he was treated with Zosyn and IV vancomycin. Upon ID recommendation. His his worsening kidney function to present acute kidney injury secondary to sepsis and acute tubular necrosis. 07/06/2018 patient is a status post right colectomy for ruptured appendicitis. Today is postop day #1. Patient abdominal pain is controlled. He remains in the ICU. He still nothing by mouth. He is passing gases only but no bowel movement. He denies chest pain or dyspnea.vitals were reviewed, patient is tachycardic and tachypneic. However his blood pressure is controlled and he is saturating 97% on 4 L of oxygen.WBC is 27.3K. Sugar controlled, with mild hypokalemia.he was placed on normal saline 125 mL/h 07/07/2018 patient is a status post right colectomy for ruptured appendicitis. Today is postop day #2. Patient is passing gases. Patient is controlled at the surgical site. No chest pain or dyspnea. vitals are sTable. No urinary problem. As WBC of 20 2.2K. Creatinine is normal. Wound is growing E. coli and blood culture showing gram-negative bacilli. Patient currently on Zosyn and vancomycin. 07/08/2018 Patient remains in the ICU and selective overflow. patient is a status post right colectomy for ruptured appendicitis. Today is postop day #3. Patient remains nothing by mouth except for as chips. He is passing flatus but no bowel movement yet. His abdominal pain is being controlled. Surgical team following the case closely. Also critical care/pulmonary team. Vital signs stable patient is growing E. coli in the wound culture and Bacteroides fragilis and the blood culture. Infectious disease team are following the patient closely and he is currently on vancomycin and Zosyn. 07/09/2018 Patient remains in the ICU, but he looks improving. Patient today is out of bed to chair. He had a loose bowel movement and he was started on a clear liquid diet. Abdominal pain at the surgical site looks controlled. Patient remains on IV antibiotics, and infectious disease team were considering switching patient to oral antibiotics upon discharge. Objective - Vital Signs Vital signs: Vital Signs Temp 97.6 F 07/09/18 08:30 Pulse 118 H 07/09/18 08:30 Resp 20 07/09/18 08:30 BP 162/85 07/09/18 08:30 Pulse Ox 95 07/09/18 08:30 Intake & Output 07/08/18 07/09/18 07/09/18 18:59 06:59 18:59 Intake Total 1475 2350 Output Total 60 Balance 1415 2350 Weight 142.3 kg Intake: IV 1475 1850 Normal saline 875 1750 Piperacillin-Tazobactam 3 100 100 .375 gm In Sodium Chloride 0.9% 100 ml @ 25 mls/hr IVPB Q8HR [facility] Rx# :[id number] Vancomycin 1,750 mg In 500 Sodium Chloride 0.9% 500 ml 500 ml @ 167 mls/hr IVPB Q8H [facility] Rx#: [id number] Intake, IV Titration 500 Amount Vancomycin 2,000 mg In 500 Sodium Chloride 0.9% 500 ml 500 ml @ 167 mls/hr IVPB Q8H [facility] Rx#: [id number] Output: Drainage 60 Right Lower Abdomen 60 Other: Voiding Method Bedside Commode Bedside Commode # Voids 2 2 # Bowel Movements 1 - Exam GENERAL: The patient is alert and oriented x3, obese HEENT: Pupils are round and equally reacting to light. EOMI. No scleral icterus. No conjunctival pallor. Normocephalic, atraumatic. No pharyngeal erythema. No thyromegaly. CARDIOVASCULAR: S1 and S2 present. No murmurs, rubs, or gallops. PULMONARY: Chest is clear to auscultation, no wheezing or crackles. -ABDOMEN: Soft, nontender, nondistended, normoactive bowel sounds. No palpable organomegaly. midline incision is closed with shawna is in a Place. MUSCULOSKELETAL: No joint swelling or deformity. EXTREMITIES: No cyanosis, clubbing, or pedal edema. NEUROLOGICAL: Gross neurological examination did not reveal any focal deficits. SKIN: No rashes. - Labs CBC & Chem 7: 07/09/18 05:25 07/09/18 05:25 Labs: Abnormal Lab Results - Last 24 Hours (Table) 07/08/18 07/08/18 07/08/18 Range/Units 11:19 11:44 13:45 WBC 24.6 H (3.8-10.6) k/uL RBC 3.88 L (4.30-5.90) m/uL Hgb 8.9 L (13.0-17.5) gm/dL Hct 29.2 L (39.0-53.0) % MCV 75.2 L (80.0-100.0) fL MCH 23.0 L (25.0-35.0) pg MCHC 30.6 L (31.0-37.0) g/dL Neutrophils # (1.3-7.7) k/uL Neutrophils # (Manual) 20.42 H (1.3-7.7) k/uL Sodium (137-145) mmol/L Potassium (3.5-5.1) mmol/L Chloride 109 H (98-107) mmol/L Creatinine (0.66-1.25) mg/dL Glucose 136 H (74-99) mg/dL POC Glucose (mg/dL) 145 H (75-99) mg/dL Calcium 8.1 L (8.4-10.2) mg/dL 07/08/18 07/09/18 07/09/18 Range/Units 17:26 00:08 05:25 WBC 23.4 H (3.8-10.6) k/uL RBC 3.79 L (4.30-5.90) m/uL Hgb 9.3 L (13.0-17.5) gm/dL Hct 28.0 L (39.0-53.0) % MCV 73.9 L (80.0-100.0) fL MCH 24.6 L (25.0-35.0) pg MCHC (31.0-37.0) g/dL Neutrophils # 20.0 H (1.3-7.7) k/uL Neutrophils # (Manual) (1.3-7.7) k/uL Sodium (137-145) mmol/L Potassium (3.5-5.1) mmol/L Chloride (98-107) mmol/L Creatinine (0.66-1.25) mg/dL Glucose (74-99) mg/dL POC Glucose (mg/dL) 182 H 165 H (75-99) mg/dL Calcium (8.4-10.2) mg/dL 07/09/18 07/09/18 Range/Units 05:25 05:25 WBC (3.8-10.6) k/uL RBC (4.30-5.90) m/uL Hgb (13.0-17.5) gm/dL Hct (39.0-53.0) % MCV (80.0-100.0) fL MCH (25.0-35.0) pg MCHC (31.0-37.0) g/dL Neutrophils # (1.3-7.7) k/uL Neutrophils # (Manual) (1.3-7.7) k/uL Sodium 134 L (137-145) mmol/L Potassium 3.2 L (3.5-5.1) mmol/L Chloride (98-107) mmol/L Creatinine 0.64 L (0.66-1.25) mg/dL Glucose 123 H (74-99) mg/dL POC Glucose (mg/dL) 130 H (75-99) mg/dL Calcium 7.7 L (8.4-10.2) mg/dL Microbiology - Last 24 Hours (Table) 07/05/18 00:30 Stool Culture - Final Stool 07/05/18 13:31 Anaerobic Culture - Preliminary Abdomen Anaerobic Gram Positive Cocci Anaerobic Gm Negative Bacilli 07/05/18 13:31 Gram Stain - Final Abdomen Wound Culture - Final Escherichia coli Assessment and Plan Assessment: Ruptured appendix with intra-abdominal abscess Severe sepsis secondary to above Patient is status post exploratory laparotomy and right colectomy History of diabetes mellitus History of hypertension History of seizure disorder Supraventricular tachycardia Plan: This is a 43 years old male who presents with sepsis secondary to ruptured appendicitis, status post right colectomy. Patient has been followed by several consultants including surgery, critical care team, infectious disease team. Continue with the same antibiotics as per ID team recommendation. Continue pain management. Labs and medication were reviewed.. Continue same treatment. Continue with symptomatic treatment. Resume home medication. Monitor lytes and vitals. DVT and GI prophylaxis. Further recommendations of the clinical course of the patient DVT prophylaxis: no heparin for now. GI Prophylaxis: Ppi Prognosis is guarded
--- NOTE | 2018-07-09 10:15 | PN ---
PROGRESS NOTE DATE OF SERVICE: 07/09/2018 A 43-year-old gentleman with history of acute abdominal sepsis secondary to a ruptured appendix with peritonitis. The patient is postop day #4. He was admitted to the hospital on 07/04 and went to the operating room the following day on 07/05. He had an exploratory laparotomy, a right-sided colectomy and with washout. The patient developed acute kidney injury secondary to ATN and sepsis and apparently was having recurrent episodes of syncope secondary to sepsis and hypotension. He also has a history of diabetes, hypertension, seizure disorder, and a previous history of supraventricular tachycardia. Currently, he is doing reasonably well. He is still in the ICU. He is not receiving any supplemental oxygen. He is receiving saline at 125 mL an hour. His wound cultures apparently growing out Escherichia coli and his blood cultures were positive Bacteroides fragilis. He is on Zosyn and vancomycin. He is doing so-so on his incentive spirometer. His respiratory status has been stable. His hemodynamic status has been stable. Current vital signs are reviewed. His temperature is 97.6, heart rate 105, respiratory rate 20, blood pressure 162/85, mean 110, room air saturation 95%. Appears in no acute distress. HEENT examination is grossly unremarkable. Mucous membranes are moist. No oral lesions. Neck is supple. Full range of motion. No adenopathy or thyromegaly. Neck veins are flat. Cardiovascular examination reveals regular rhythm rate. Heart rate 105. He has got sinus tachycardia. Heart sounds are distant. Lungs are relatively clear. A few scattered rhonchi. No wheezes or crackles. Abdomen is distended. Bowel sounds are heard. No masses or tenderness. Extremities are intact. No cyanosis, clubbing, or edema. Skin without rash. Neurologic examination is brief but nonfocal. LAB STUDIES: Microbiologic studies are mentioned above. White count 23.4, hemoglobin 9.3, hematocrit 28, platelet count 356,000. Sodium 134, potassium 3.2, chloride is 103, CO2 is 25, BUN and creatinine were 10 and 0.64. No new chest x-ray to report. Medications are reviewed. ASSESSMENT: 1. Postoperative day #4, status post exploratory laparotomy, right-sided colectomy with washout secondary to acute secondary to acute abdominal sepsis, secondary to ruptured appendix with peritonitis. 2. Escherichia coli peritonitis and Bacteroides fragilis bacteremia. 3. Severe lactic acidosis, improved. 4. Acute kidney injury with acute tubular necrosis, resolved. 5. Syncope, secondary to sepsis and hypotension, resolved. 6. Type 2 diabetes mellitus. 7. Benign essential hypertension. 8. History of seizure disorder. 9. Obesity. 10.Supraventricular tachycardia. PLAN: The patient remains on vancomycin and Zosyn. We encourage him to continue deep breathing coughing clearing of secretions and hourly use of the incentive spirometer. He is receiving saline at 125 mL an hour. Wound cultures were positive for E coli. Blood cultures were positive for Bacteroides fragilis. Infectious Disease is following. Prognosis is guarded. Will continue to follow. MMODL / IJN: [id number] /
[2018-07-09] MEDS: HYDROmorphone 1 MG/ML 1 ML SYRINGE IVP PRN ×2 (10:36→20:57)
[2018-07-09 12:07] LABS: Glucose,Whole Blood 174 mg/dL (75-99)
--- NOTE | 2018-07-09 12:44 | P.PN ---
Subjective Progress Note Date: 07/09/18 HISTORY OF PRESENT ILLNESS: 43-year-old male who underwent exploratory laparotomy, right colectomy, and drainage of retroperitoneal abscess secondary to ruptured appendicitis. POD #4. Patient is currently sitting up in the chair. Patient reports his pain is tolerable at this time. Tolerating clear liquid diet. Passing flatus and having bowel movements. Using incentive spirometer 10 times an hour. WBC 23.4. Hemoglobin 9.3. PHYSICAL EXAM: VITAL SIGNS: Reviewed. GENERAL: Well-developed in no acute distress. HEENT: No sclera icterus. Extraocular movements grossly intact. Moist buccal mucosa. Head is atraumatic, normocephalic. ABDOMEN: Soft. Nondistended. KAROLYN drain intact with serosanguineous drainage. Dressing intact to midline incision. NEUROLOGIC: Alert and oriented. Cranial nerves II through XII grossly intact. ASSESSMENT: 1. S/P exploratory laparotomy, right colectomy, and drainage of retroperitoneal abscess secondary to ruptured appendicitis 2. Sepsis, present on admission PLAN: 1. Advance diet to full liquids. 2. Activity as tolerated 3. Pain control 4. Incentive spirometry 5. Monitor WBC. Continue antibiotics. Nurse practitioner note has been reviewed by physician. Signing provider agrees with the documented findings, assessment, and plan of care. Objective - Vital Signs Vital signs: Vital Signs Temp 97.6 F 07/09/18 08:30 Pulse 118 H 07/09/18 08:30 Resp 20 07/09/18 08:30 BP 162/85 07/09/18 08:30 Pulse Ox 95 07/09/18 08:30 Intake & Output 07/08/18 07/09/18 07/09/18 18:59 06:59 18:59 Intake Total 1475 2350 Output Total 60 Balance 1415 2350 Weight 142.3 kg Intake: IV 1475 1850 Normal saline 875 1750 Piperacillin-Tazobactam 3 100 100 .375 gm In Sodium Chloride 0.9% 100 ml @ 25 mls/hr IVPB Q8HR [facility] Rx# :[id number] Vancomycin 1,750 mg In 500 Sodium Chloride 0.9% 500 ml 500 ml @ 167 mls/hr IVPB Q8H [facility] Rx#: [id number] Intake, IV Titration 500 Amount Vancomycin 2,000 mg In 500 Sodium Chloride 0.9% 500 ml 500 ml @ 167 mls/hr IVPB Q8H [facility] Rx#: [id number] Output: Drainage 60 Right Lower Abdomen 60 Other: Voiding Method Bedside Commode Bedside Commode Bedside Commode # Voids 2 2 # Bowel Movements 1 - Labs CBC & Chem 7: 07/09/18 05:25 07/09/18 05:25 Labs: Abnormal Lab Results - Last 24 Hours (Table) 07/08/18 07/08/18 07/08/18 Range/Units 11:19 13:45 17:26 WBC 24.6 H (3.8-10.6) k/uL RBC 3.88 L (4.30-5.90) m/uL Hgb 8.9 L (13.0-17.5) gm/dL Hct 29.2 L (39.0-53.0) % MCV 75.2 L (80.0-100.0) fL MCH 23.0 L (25.0-35.0) pg MCHC 30.6 L (31.0-37.0) g/dL Neutrophils # (1.3-7.7) k/uL Neutrophils # (Manual) 20.42 H (1.3-7.7) k/uL Sodium (137-145) mmol/L Potassium (3.5-5.1) mmol/L Chloride 109 H (98-107) mmol/L Creatinine (0.66-1.25) mg/dL Glucose 136 H (74-99) mg/dL POC Glucose (mg/dL) 182 H (75-99) mg/dL Calcium 8.1 L (8.4-10.2) mg/dL 07/09/18 07/09/18 07/09/18 Range/Units 00:08 05:25 05:25 WBC 23.4 H (3.8-10.6) k/uL RBC 3.79 L (4.30-5.90) m/uL Hgb 9.3 L (13.0-17.5) gm/dL Hct 28.0 L (39.0-53.0) % MCV 73.9 L (80.0-100.0) fL MCH 24.6 L (25.0-35.0) pg MCHC (31.0-37.0) g/dL Neutrophils # 20.0 H (1.3-7.7) k/uL Neutrophils # (Manual) (1.3-7.7) k/uL Sodium 134 L (137-145) mmol/L Potassium 3.2 L (3.5-5.1) mmol/L Chloride (98-107) mmol/L Creatinine 0.64 L (0.66-1.25) mg/dL Glucose 123 H (74-99) mg/dL POC Glucose (mg/dL) 165 H (75-99) mg/dL Calcium 7.7 L (8.4-10.2) mg/dL 07/09/18 07/09/18 Range/Units 05:25 12:05 WBC (3.8-10.6) k/uL RBC (4.30-5.90) m/uL Hgb (13.0-17.5) gm/dL Hct (39.0-53.0) % MCV (80.0-100.0) fL MCH (25.0-35.0) pg MCHC (31.0-37.0) g/dL Neutrophils # (1.3-7.7) k/uL Neutrophils # (Manual) (1.3-7.7) k/uL Sodium (137-145) mmol/L Potassium (3.5-5.1) mmol/L Chloride (98-107) mmol/L Creatinine (0.66-1.25) mg/dL Glucose (74-99) mg/dL POC Glucose (mg/dL) 130 H 174 H (75-99) mg/dL Calcium (8.4-10.2) mg/dL Microbiology - Last 24 Hours (Table) 07/05/18 13:31 Anaerobic Culture - Final Abdomen Anaerobic Gram Positive Cocci Anaerobic Gram Positive Cocci#2 Anaerobic Gm Negative Bacilli 07/05/18 00:30 Stool Culture - Final Stool 07/05/18 13:31 Gram Stain - Final Abdomen Wound Culture - Final Escherichia coli
[2018-07-09 16:58] LABS: Glucose,Whole Blood 138 mg/dL (75-99)
[2018-07-09] MEDS: ACETAMINOPHEN TAB 325 MG TAB PO PRN (18:55)
[2018-07-09] MEDS: PANTOPRAZOLE 40 MG/10 ML VIAL IV SCH (21:01)
[2018-07-10 00:07] LABS: Glucose,Whole Blood 146 mg/dL (75-99)
[2018-07-10] MEDS: HYDROmorphone 1 MG/ML 1 ML SYRINGE IVP PRN ×4 (00:26→21:50)
[2018-07-10] MEDS: PIPERACILLIN-TAZOBACTAM 3.375 GM in SODIUM CHLORIDE 0.9% 100 ML IVPB SCH ×3 (00:30→16:15)
[2018-07-10] MEDS: INSULIN ASPART (NovoLOG) 100 UNIT/ML VIAL SQ SCH ×4 (01:17→18:02)
[2018-07-10] MEDS: SODIUM CHLORIDE 0.9% 1,000 ML IV SCH ×3 (01:33→16:16)
[2018-07-10] MEDS ORDERED: VANCOMYCIN TROUGH DUE 1 EACH MISC MISCELLANE ONE (05:00)
[2018-07-10 06:06] LABS: Glucose,Whole Blood 142 mg/dL (75-99)
[2018-07-10] MEDS: VANCOMYCIN 2,000 MG in SODIUM CHLORIDE 0.9% 500 ML 500 ML IVPB SCH ×3 (06:06→21:55)
[2018-07-10 06:24] LABS: HCT 27.5 % (39.0-53.0); HGB 8.9 gm/dL (13.0-17.5); Hypochromasia Slight; MCH 24.2 pg (25.0-35.0); MCHC 32.4 g/dL (31.0-37.0); MCV 74.7 fL (80.0-100.0); Mean Platelet Volume 7.6; Microcytosis Slight; Platelet Count 378 k/uL (150-450); RBC 3.68 m/uL (4.30-5.90); RDW 15.1 % (11.5-15.5); WBC 20.5 k/uL (3.8-10.6)
[2018-07-10 06:36] LABS: Anion Gap 7 mmol/L; Blood Urea Nitrogen 7 mg/dL (9-20); Calcium 7.5 mg/dL (8.4-10.2); Carbon Dioxide 23 mmol/L (22-30); Chloride 107 mmol/L (98-107); Glucose 144 mg/dL (74-99); Potassium 3.5 mmol/L (3.5-5.1); Sodium 137 mmol/L (137-145)
[2018-07-10 07:30] LABS: Metamyelocytes # (M) 0.82 k/uL (0); Metamyelocytes % 4 %
[2018-07-10 07:32] LABS: Blast Cells # (M) 0.21 k/uL (0); Nucleated Red Blood Cells 0 /100 WBC (0-0); Polychromasia Present; Total Cells Counted 200
[2018-07-10 07:35] LABS: Anisocytosis (M) Present; Poikilocytosis (M) Present
[2018-07-10] MEDS: FAMOTIDINE 20 MG/2 ML VIAL IV SCH (08:19)
[2018-07-10] MEDS: INSULIN DETEMIR (LEVEMIR) 100 UNIT/ML SYR SQ SCH (09:29)
[2018-07-10 09:46] LABS: Band Neutrophils % 5 %; Eosinophils # (M) 0.41 k/uL (0-0.7); Lymphocytes # (M) 1.23 k/uL (1.0-4.8); Monocytes # (M) 1.44 k/uL (0-1.0); Myelocytes # (M) 0.41 k/uL (0); Myelocytes % 2 %; Neutrophils % (M) 76 %
[2018-07-10 09:49] LABS: Toxic Granulation Present
--- NOTE | 2018-07-10 11:42 | P.PN ---
Subjective Progress Note Date: 07/10/18 HISTORY OF PRESENT ILLNESS: 43-year-old male who underwent exploratory laparotomy, right colectomy, and drainage of retroperitoneal abscess secondary to ruptured appendicitis. POD #5. Patient is currently sitting up in the chair. Patient reports his pain is tolerable at this time. Tolerating full liquid diet. Requesting diet advancement. Passing flatus and having bowel movements. Using incentive spirometer 10 times an hour. WBC 20.5. Hemoglobin 8.9. Afebrile. Tachycardic with a rate in the 110s. PHYSICAL EXAM: VITAL SIGNS: Reviewed. GENERAL: Well-developed in no acute distress. HEENT: No sclera icterus. Extraocular movements grossly intact. Moist buccal mucosa. Head is atraumatic, normocephalic. ABDOMEN: Obese. Soft. Nondistended. KAROLYN drain intact with serosanguineous drainage. Dressing intact to midline incision with old bloody drainage at distal end. NEUROLOGIC: Alert and oriented. Cranial nerves II through XII grossly intact. ASSESSMENT: 1. S/P exploratory laparotomy, right colectomy, and drainage of retroperitoneal abscess secondary to ruptured appendicitis 2. Sepsis, present on admission PLAN: 1. Advance diet to consistent carb/heart healthy 2. Activity as tolerated 3. Pain control 4. Incentive spirometry 5. Monitor WBC. Continue antibiotics. Nurse practitioner note has been reviewed by physician. Signing provider agrees with the documented findings, assessment, and plan of care. Objective - Vital Signs Vital signs: Vital Signs Temp 98.0 F 07/10/18 05:30 Pulse 113 H 07/10/18 05:30 Resp 18 07/10/18 05:30 BP 125/59 07/10/18 05:30 Pulse Ox 94 L 07/10/18 05:30 Intake & Output 07/09/18 07/10/18 07/10/18 18:59 06:59 18:59 Intake Total 1550 Output Total 592 160 65 Balance 958 -160 -65 Intake: IV 1450 Normal saline 750 Piperacillin-Tazobactam 3 200 .375 gm In Sodium Chloride 0.9% 100 ml @ 25 mls/hr IVPB Q8HR [facility] Rx# :[id number] Vancomycin 1,750 mg In 500 Sodium Chloride 0.9% 500 ml 500 ml @ 167 mls/hr IVPB Q8H [facility] Rx#: [id number] Intake, IV Titration 100 Amount Potassium Chloride 20 meq 100 In Water For Injection 1 100ml.bag @ 50 mls/hr IVPB Q2H [facility] Rx#: [id number] Output: Drainage 190 60 65 Right Lower Abdomen 190 60 65 Urine 100 Stool 2 Urine/Stool Mix 400 Other: Voiding Method Bedside Commode Bedside Commode Bedside Commode # Voids 3 3 # Bowel Movements 0 - Labs CBC & Chem 7: 07/10/18 06:02 07/10/18 06:02 Labs: Abnormal Lab Results - Last 24 Hours (Table) 07/09/18 07/09/18 07/10/18 Range/Units 12:05 16:57 00:05 WBC (3.8-10.6) k/uL RBC (4.30-5.90) m/uL Hgb (13.0-17.5) gm/dL Hct (39.0-53.0) % MCV (80.0-100.0) fL MCH (25.0-35.0) pg Neutrophils # (Manual) (1.3-7.7) k/uL Monocytes # (Manual) (0-1.0) k/uL Metamyelocytes # (Man) (0) k/uL Myelocytes # (Manual) (0) k/uL Blast Cells # (Man) (0) k/uL BUN (9-20) mg/dL Creatinine (0.66-1.25) mg/dL Glucose (74-99) mg/dL POC Glucose (mg/dL) 174 H 138 H 146 H (75-99) mg/dL Calcium (8.4-10.2) mg/dL 07/10/18 07/10/18 07/10/18 Range/Units 06:02 06:02 06:04 WBC 20.5 H (3.8-10.6) k/uL RBC 3.68 L (4.30-5.90) m/uL Hgb 8.9 L (13.0-17.5) gm/dL Hct 27.5 L (39.0-53.0) % MCV 74.7 L (80.0-100.0) fL MCH 24.2 L (25.0-35.0) pg Neutrophils # (Manual) 16.60 H (1.3-7.7) k/uL Monocytes # (Manual) 1.44 H (0-1.0) k/uL Metamyelocytes # (Man) 0.82 H (0) k/uL Myelocytes # (Manual) 0.41 H (0) k/uL Blast Cells # (Man) 0.21 H (0) k/uL BUN 7 L (9-20) mg/dL Creatinine 0.65 L (0.66-1.25) mg/dL Glucose 144 H (74-99) mg/dL POC Glucose (mg/dL) 142 H (75-99) mg/dL Calcium 7.5 L (8.4-10.2) mg/dL Microbiology - Last 24 Hours (Table) 07/05/18 13:31 Anaerobic Culture - Final Abdomen Anaerobic Gram Positive Cocci Anaerobic Gram Positive Cocci#2 Anaerobic Gm Negative Bacilli 07/05/18 00:30 Stool Culture - Final Stool
[2018-07-10 12:31] LABS: Glucose,Whole Blood 212 mg/dL (75-99)
--- NOTE | 2018-07-10 12:31 | P.PN ---
Subjective Progress Note Date: 07/10/18 Principal diagnosis: Acute abdominal sepsis secondary to ruptured appendix with peritonitis and lactic acidosis his is a 43-year-old white male with history of diabetes, hypertension, seizure disorder, supraventricular tachycardia, patient presented to the ER with almost 1 week history of uncomfortable feeling in the abdomen. Pain has been described in the right mid abdomen area, patient has been feeling recently extremely lightheaded, and he passed out twice before he came into the hospital. Upon presentation to the hospital, the patient was noted to be febrile with a temp of 101.6, he was tachycardic, and blood pressure was normal. Lactic acid was noted to be elevated at 9.7. Influenza screen was negative. His liver enzymes were noted to be a bit elevated. And CT of the abdomen and pelvis showedabdominal abscess, and markedly thickened appendix. The radiologist felt this is consistent with appendicitis and the rupture. Patient was started on broad-spectrum antibiotics, admitted to the intensive care unit and he was placed on a bicarb drip for his metabolic acidosis. Surgical consultation was initiated. And he is being considered for exploratory laparotomy sometime today. Since admission the patient has made a significant improvement. He is feeling better, breathing easier, his pain is well controlled, and he is hemodynamically stable. Did not require any pressors. Patient responded mostly to fluids and antibiotics.all along the patient had no significant pulmonary symptoms except a bit of shortness of breath when he was in the ER yesterday. Patient was reevaluated today on 07/06/2018, he underwent exploratory laparotomy and right colectomy by Dr. Stovall, and postoperatively he was sent to the ICU on mechanical ventilation. Shortly after he arrived to the ICU, I extubated the patient, and placed on nasal cannula. Patient was reevaluated today, he is doing great, relatively asymptomatic, sitting in bed, talking on the phone. De nies any cough no wheezing no shortness of breath denies any abdominal discomfort. His WBC count is down to 27.3 his other labs were noted to be relatively unremarkable. Electrolytes and renal profile were noted to be normal. Chest x-ray this morning showed no acute process. Patient was reevaluated today on 07/07/2018, patient is doing well post exploratory laparotomy and right colectomy. States that he may have had small flatus, he is hemodynamically stable, heart rate about 110, but the patient is asymptomatic. Blood pressure is normal. Urine output is excellent. Patient is status post right colectomy for presumed perforated appendicitis with abscess. WBC count is down to 22.2, his basic metabolic profile and renal profile are normal. Patient denies any shortness of breath cough or wheezing, denies any abdominal pain. On 07/10/2018 patient seen in follow-up on medical surgical floor. She is up in the chair, in no acute distress, he is on room air with pulse ox of 95%, hemo dynamically stable, no fever or chills, no specific complaints, no complaints of shortness of breath, his pain is under good control. His labs have been reviewed, his white blood cell count is trending down, down to 20.5 today, hemoglobin is 8.9, electrodes are within normal limits, BUN 7 creatinine 0.65. Patient did have Bacteroides fragilis species in his blood cultures, urine cultures showed no growth, wound cultures from the abdominal incision did show E. coli, and peritoneal fluid cultures showed anaerobic gram-positive cocci and bacilli, final culture is pending. Antibiotic coverage and a form of Zosyn and vancomycin, ID service is following. Patient is tolerating full liquid diet, is passing flatus and having bowel movements. She is using his incentive spirometry. Biopsy of the colon from right colectomy was positive for invasive well differentiated colonic adenocarcinoma involving the anus radial/mesenteric margin, other margins were negative for malignancy. 2 of the 8 sampled mesenteric lymph nodes are positive for metastasis with multiple tumor deposits. Objective - Vital Signs Vital signs: Vital Signs Temp 98.0 F 07/10/18 05:30 Pulse 113 H 07/10/18 05:30 Resp 18 07/10/18 05:30 BP 125/59 07/10/18 05:30 Pulse Ox 94 L 07/10/18 05:30 Intake & Output 07/09/18 07/10/18 07/10/18 18:59 06:59 18:59 Intake Total 1550 Output Total 592 160 65 Balance 958 -160 -65 Intake: IV 1450 Normal saline 750 Piperacillin-Tazobactam 3 200 .375 gm In Sodium Chloride 0.9% 100 ml @ 25 mls/hr IVPB Q8HR [facility] Rx# :[id number] Vancomycin 1,750 mg In 500 Sodium Chloride 0.9% 500 ml 500 ml @ 167 mls/hr IVPB Q8H [facility] Rx#: [id number] Intake, IV Titration 100 Amount Potassium Chloride 20 meq 100 In Water For Injection 1 100ml.bag @ 50 mls/hr IVPB Q2H [facility] Rx#: [id number] Output: Drainage 190 60 65 Right Lower Abdomen 190 60 65 Urine 100 Stool 2 Urine/Stool Mix 400 Other: Voiding Method Bedside Commode Bedside Commode Bedside Commode # Voids 3 3 # Bowel Movements 0 - Exam GENERAL EXAM: Alert, pleasant, 43-year-old white male, on room air comfortable in no apparent distress. HEAD: Normocephalic/atraumatic. EYES: Normal reaction of pupils, equal size. Conjunctiva pink, sclera white. NOSE: Clear with pink turbinates. THROAT: No erythema or exudates. NECK: No masses, no JVD, no thyroid enlargement, no adenopathy. CHEST: No chest wall deformity. Symmetrical expansion. LUNGS: Equal air entry with no crackles, wheeze, rhonchi or dullness. CVS: Regular rate and rhythm, normal S1 and S2, no gallops, no murmurs, no rubs ABDOMEN: Obese soft, nondistended. KAROLYN drain is present, compress and intact, draining serosanguineous drainage, with abdominal incision is clean dry and intact, covered with a dressing with small amount of old serosanguineous drainage No hepatosplenomegaly, normal bowel sounds, no guarding or rigidity. EXTREMITIES: No clubbing, no edema, no cyanosis, 2+ pulses and upper and lower extremities. MUSCULOSKELETAL: Muscle strength and tone normal. SPINE: No scoliosis or deformity SKIN: No rashes CENTRAL NERVOUS SYSTEM: Alert and oriented -3. No focal deficits, tone is normal in all 4 extremities. PSYCHIATRIC: Alert and oriented -3. Appropriate affect. Intact judgment and insight. - Labs CBC & Chem 7: 07/10/18 06:02 07/10/18 06:02 Labs: Abnormal Lab Results - Last 24 Hours (Table) 07/09/18 07/10/18 07/10/18 Range/Units 16:57 00:05 06:02 WBC 20.5 H (3.8-10.6) k/uL RBC 3.68 L (4.30-5.90) m/uL Hgb 8.9 L (13.0-17.5) gm/dL Hct 27.5 L (39.0-53.0) % MCV 74.7 L (80.0-100.0) fL MCH 24.2 L (25.0-35.0) pg Neutrophils # (Manual) 16.60 H (1.3-7.7) k/uL Monocytes # (Manual) 1.44 H (0-1.0) k/uL Metamyelocytes # (Man) 0.82 H (0) k/uL Myelocytes # (Manual) 0.41 H (0) k/uL Blast Cells # (Man) 0.21 H (0) k/uL BUN (9-20) mg/dL Creatinine (0.66-1.25) mg/dL Glucose (74-99) mg/dL POC Glucose (mg/dL) 138 H 146 H (75-99) mg/dL Calcium (8.4-10.2) mg/dL 07/10/18 07/10/18 Range/Units 06:02 06:04 WBC (3.8-10.6) k/uL RBC (4.30-5.90) m/uL Hgb (13.0-17.5) gm/dL Hct (39.0-53.0) % MCV (80.0-100.0) fL MCH (25.0-35.0) pg Neutrophils # (Manual) (1.3-7.7) k/uL Monocytes # (Manual) (0-1.0) k/uL Metamyelocytes # (Man) (0) k/uL Myelocytes # (Manual) (0) k/uL Blast Cells # (Man) (0) k/uL BUN 7 L (9-20) mg/dL Creatinine 0.65 L (0.66-1.25) mg/dL Glucose 144 H (74-99) mg/dL POC Glucose (mg/dL) 142 H (75-99) mg/dL Calcium 7.5 L (8.4-10.2) mg/dL Microbiology - Last 24 Hours (Table) 07/05/18 13:31 Anaerobic Culture - Final Abdomen Anaerobic Gram Positive Cocci Anaerobic Gram Positive Cocci#2 Anaerobic Gm Negative Bacilli Assessment and Plan Plan: Assessment: 1 acute abdominal sepsis secondary to ruptured appendix with peritonitis and lactic acidosis on presentation. Status post exploratory laparotomy and right colectomy, postoperative day #5 2 invasive well differentiated colonic adenocarcinoma involving the radial/mesenteric margin, by biopsy 3 acute kidney injury secondary to sepsis and acute tubular necrosis. Resolved completely 4 recurrent episodes of syncope since secondary to sepsis and hypotension. Resolved 5 history of type 2 diabetes 6 history of hypertension 7 history of seizure disorder 8 history of supraventricular tachycardia. Plan: Continue encouraging deep breathing and coughing, incentive spirometry use, encourage ambulation, patient is hemodynamically stable, no fever or chills, continue antibiotics per ID service recommendations, from pulmonary/critical care perspective patient is stable, we will follow him on as-needed basis. I performed a history & physical examination of the patient and discussed their management with my nurse practitioner, Yolande Zeng. I reviewed the nurse practitioner's note and agree with the documented findings and plan of care. Lung sounds are positive for minimal crackles at the bases. The findings and the impression was discussed with the patient. I attest to the documentation by the nurse practitioner. Time with Patient: Less than 30
[2018-07-10] MEDS: ATENOLOL 25 MG TAB PO SCH (15:04)
--- NOTE | 2018-07-10 15:30 | P.PN ---
Subjective This is a pleasant 43 years old male with past medical history of diabetes mellitus, hypertension, seizure disorder, supraventricular tachycardia. Came originally on 07/04/2018 for feeling lethargic with Palpitation. EKG Showed Supraventricular Tachycardia That Was not been complicated initially. Patient also was complaining from abdominal discomfort. On the presentation his WBC was 11.6, went up to 31.1 hemoglobin 10.3, down from 12.1, currently creatinine is 1.1, he has lactic acid on the presentation 2.4 and 2.9. Liver enzymes are nor mal limits including AST and ALT. He had CAT scan of the abdomen which showed abdominal abscess with ruptured appendix. Surgical team has been consulted and patient underwent exploratory laparotomy with right colectomy. And drainage of the retroperitoneal abscess. Today is postop day #0. Patient has been evaluated by infectious disease also, he was treated with Zosyn and IV vancomycin. Upon ID recommendation. His his worsening kidney function to present acute kidney injury secondary to sepsis and acute tubular necrosis. 07/06/2018 patient is a status post right colectomy for ruptured appendicitis. Today is postop day #1. Patient abdominal pain is controlled. He remains in the ICU. He still nothing by mouth. He is passing gases only but no bowel movement. He denies chest pain or dyspnea.vitals were reviewed, patient is tachycardic and tachypneic. However his blood pressure is controlled and he is saturating 97% on 4 L of oxygen.WBC is 27.3K. Sugar controlled, with mild hypokalemia.he was placed on normal saline 125 mL/h 07/07/2018 patient is a status post right colectomy for ruptured appendicitis. Today is postop day #2. Patient is passing gases. Patient is controlled at the surgical site. No chest pain or dyspnea. vitals are sTable. No urinary problem. As WBC of 20 2.2K. Creatinine is normal. Wound is growing E. coli and blood culture showing gram-negative bacilli. Patient currently on Zosyn and vancomycin. 07/08/2018 Patient remains in the ICU and selective overflow. patient is a status post right colectomy for ruptured appendicitis. Today is postop day #3. Patient remains nothing by mouth except for as chips. He is passing flatus but no bowel movement yet. His abdominal pain is being controlled. Surgical team following the case closely. Also critical care/pulmonary team. Vital signs stable patient is growing E. coli in the wound culture and Bacteroides fragilis and the blood culture. Infectious disease team are following the patient closely and he is currently on vancomycin and Zosyn. 07/09/2018 Patient remains in the ICU, but he looks improving. Patient today is out of bed to chair. He had a loose bowel movement and he was started on a clear liquid diet. Abdominal pain at the surgical site looks controlled. Patient remains on IV antibiotics, and infectious disease team were considering switching patient to oral antibiotics upon discharge. 07/10/2018 Patient is seen today in the general medical floor, is sitting in chair, and ambulate to the restroom back and forth. He is lying comfortable not in distress. His abdominal pain is controlled. He is eating well. Had normal bowel movement. However his get tachycardic easily. He remains on IV antibiotic for his intra-abdominal sepsis. Patient atenolol was restarted Objective - Vital Signs Vital signs: Vital Signs Temp 98.0 F 07/10/18 05:30 Pulse 113 H 07/10/18 05:30 Resp 18 07/10/18 05:30 BP 125/59 07/10/18 05:30 Pulse Ox 94 L 07/10/18 05:30 Intake & Output 07/09/18 07/10/18 07/10/18 18:59 06:59 18:59 Intake Total 1550 1050 Output Total 592 160 135 Balance 958 -160 915 Intake: IV 1450 Normal saline 750 Piperacillin-Tazobactam 3 200 .375 gm In Sodium Chloride 0.9% 100 ml @ 25 mls/hr IVPB Q8HR [facility] Rx# :[id number] Vancomycin 1,750 mg In 500 Sodium Chloride 0.9% 500 ml 500 ml @ 167 mls/hr IVPB Q8H [facility] Rx#: [id number] Intake, IV Titration 100 Amount Potassium Chloride 20 meq 100 In Water For Injection 1 100ml.bag @ 50 mls/hr IVPB Q2H [facility] Rx#: [id number] Oral 1050 Output: Drainage 190 60 135 Right Lower Abdomen 190 60 135 Urine 100 Stool 2 Urine/Stool Mix 400 Other: Voiding Method Bedside Commode Bedside Commode Bedside Commode # Voids 3 3 3 # Bowel Movements 0 2 - Exam GENERAL: The patient is alert and oriented x3, obese HEENT: Pupils are round and equally reacting to light. EOMI. No scleral icterus. No conjunctival pallor. Normocephalic, atraumatic. No pharyngeal erythema. No thyromegaly. CARDIOVASCULAR: S1 and S2 present. No murmurs, rubs, or gallops. PULMONARY: Chest is clear to auscultation, no wheezing or crackles. -ABDOMEN: Soft, nontender, nondistended, normoactive bowel sounds. No palpable organomegaly. midline incision is closed with shawna is in a Place. MUSCULOSKELETAL: No joint swelling or deformity. EXTREMITIES: No cyanosis, clubbing, or pedal edema. NEUROLOGICAL: Gross neurological examination did not reveal any focal deficits. SKIN: No rashes. - Labs CBC & Chem 7: 07/10/18 06:02 07/10/18 06:02 Labs: Abnormal Lab Results - Last 24 Hours (Table) 07/09/18 07/10/18 07/10/18 Range/Units 16:57 00:05 06:02 WBC 20.5 H (3.8-10.6) k/uL RBC 3.68 L (4.30-5.90) m/uL Hgb 8.9 L (13.0-17.5) gm/dL Hct 27.5 L (39.0-53.0) % MCV 74.7 L (80.0-100.0) fL MCH 24.2 L (25.0-35.0) pg Neutrophils # (Manual) 16.60 H (1.3-7.7) k/uL Monocytes # (Manual) 1.44 H (0-1.0) k/uL Metamyelocytes # (Man) 0.82 H (0) k/uL Myelocytes # (Manual) 0.41 H (0) k/uL Blast Cells # (Man) 0.21 H (0) k/uL BUN (9-20) mg/dL Creatinine (0.66-1.25) mg/dL Glucose (74-99) mg/dL POC Glucose (mg/dL) 138 H 146 H (75-99) mg/dL Calcium (8.4-10.2) mg/dL 07/10/18 07/10/18 07/10/18 Range/Units 06:02 06:04 12:28 WBC (3.8-10.6) k/uL RBC (4.30-5.90) m/uL Hgb (13.0-17.5) gm/dL Hct (39.0-53.0) % MCV (80.0-100.0) fL MCH (25.0-35.0) pg Neutrophils # (Manual) (1.3-7.7) k/uL Monocytes # (Manual) (0-1.0) k/uL Metamyelocytes # (Man) (0) k/uL Myelocytes # (Manual) (0) k/uL Blast Cells # (Man) (0) k/uL BUN 7 L (9-20) mg/dL Creatinine 0.65 L (0.66-1.25) mg/dL Glucose 144 H (74-99) mg/dL POC Glucose (mg/dL) 142 H 212 H (75-99) mg/dL Calcium 7.5 L (8.4-10.2) mg/dL Assessment and Plan Assessment: Ruptured appendix with intra-abdominal abscess Severe sepsis secondary to above Patient is status post exploratory laparotomy and right colectomy History of diabetes mellitus History of hypertension History of seizure disorder Supraventricular tachycardia Plan: This is a 43 years old male who presents with sepsis secondary to ruptured vanessa endicitis, status post right colectomy. Patient has been followed by several consultants including surgery, critical care team, infectious disease team. Continue with the same antibiotics as per ID team recommendation. Continue pain management. Labs and medication were reviewed.. Continue same treatment. Continue with symptomatic treatment. Resume home medication. Monitor lytes and vitals. DVT and GI prophylaxis. Further recommendations of the clinical course of the patient DVT prophylaxis: no heparin for now. GI Prophylaxis: Ppi Prognosis is guarded
[2018-07-10 17:27] LABS: Glucose,Whole Blood 213 mg/dL (75-99)
[2018-07-10 20:31] LABS: Glucose,Whole Blood 188 mg/dL (75-99)
[2018-07-10] MEDS: FAMOTIDINE 20 MG TAB PO SCH (21:53)
[2018-07-11 00:07] LABS: Glucose,Whole Blood 243 mg/dL (75-99)
[2018-07-11] MEDS: INSULIN ASPART (NovoLOG) 100 UNIT/ML VIAL SQ SCH ×4 (00:29→17:19)
[2018-07-11] MEDS: PIPERACILLIN-TAZOBACTAM 3.375 GM in SODIUM CHLORIDE 0.9% 100 ML IVPB SCH ×3 (00:29→17:19)
[2018-07-11] MEDS: VANCOMYCIN 2,000 MG in SODIUM CHLORIDE 0.9% 500 ML 500 ML IVPB SCH ×3 (05:27→21:36)
[2018-07-11 06:19] LABS: Glucose,Whole Blood 195 mg/dL (75-99)
[2018-07-11] MEDS: SODIUM CHLORIDE 0.9% 1,000 ML IV SCH ×2 (06:21→21:36)
[2018-07-11] MEDS: ATENOLOL 25 MG TAB PO SCH (08:33)
[2018-07-11] MEDS: INSULIN DETEMIR (LEVEMIR) 100 UNIT/ML SYR SQ SCH (08:33)
[2018-07-11] MEDS: FAMOTIDINE 20 MG TAB PO SCH ×2 (08:33→21:35)
[2018-07-11] MEDS: LORazepam 0.5 MG TAB PO PRN ×2 (10:01→21:35)
[2018-07-11 10:50] LABS: Basophils # (A) 0.1 k/uL (0-0.2); Basophils % (A) 0 %; Eosinophils # (A) 0.3 k/uL (0-0.7); Eosinophils % (A) 1 %; HCT 26.9 % (39.0-53.0); HGB 8.7 gm/dL (13.0-17.5); Hypochromasia Slight; Lymphocytes # (A) 1.6 k/uL (1.0-4.8); Lymphocytes % (A) 6 %; MCH 24.2 pg (25.0-35.0); MCHC 32.4 g/dL (31.0-37.0); MCV 74.8 fL (80.0-100.0); Mean Platelet Volume 8.4; Microcytosis Slight; Monocytes % (A) 4 %; Neutrophils % (A) 87 %; Platelet Count 447 k/uL (150-450); RDW 15.6 % (11.5-15.5); WBC 26.3 k/uL (3.8-10.6)
[2018-07-11 11:03] LABS: Anion Gap 8 mmol/L; Blood Urea Nitrogen 7 mg/dL (9-20); Calcium 7.6 mg/dL (8.4-10.2); Carbon Dioxide 22 mmol/L (22-30); Chloride 107 mmol/L (98-107); Glucose 173 mg/dL (74-99); Potassium 3.6 mmol/L (3.5-5.1); Sodium 137 mmol/L (137-145)
--- NOTE | 2018-07-11 12:06 | P.PN ---
Subjective Progress Note Date: 07/11/18 HISTORY OF PRESENT ILLNESS: 43-year-old male who underwent exploratory laparotomy, right colectomy, and drainage of retroperitoneal abscess secondary to ruptured appendicitis. POD #6. Patient is currently sitting up in the chair. Patient reports his pain is tolerable at this time. Tolerating consistent carb/heart healthy diet. Reports bowel movement this morning. Denies nausea or vomiting. KAROLYN drain with serosanguineous drainage. 50 mL emptied this morning per nursing. 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 2 of 8 samples mesenteric lymph node positive for metastasis with multiple tumor deposits. Patient notified of pathology results. Patient reports both his maternal and paternal grandmothers had colon cancer. WBC today is 26.3. Hemoglobin 8.7. PHYSICAL EXAM: VITAL SIGNS: Reviewed. GENERAL: Well-developed in no acute distress. HEENT: No sclera icterus. Extraocular movements grossly intact. Moist buccal mucosa. Head is atraumatic, normocephalic. ABDOMEN: Obese. Soft. Nondistended. KAROLYN drain intact with serosanguineous drainage. NEUROLOGIC: Alert and oriented. Cranial nerves II through XII grossly intact. ASSESSMENT: 1. S/P exploratory laparotomy, right colectomy, and drainage of retroperitoneal abscess secondary to ruptured appendicitis, pathology positive for adenocarcinoma 2. Sepsis, present on admission PLAN: 1. Continue consistent carb/heart healthy diet 2. Activity as tolerated 3. Pain control 4. Incentive spirometry 5. Monitor WBC. Continue antibiotics per ID. 6. CT abdomen/pelvis with IV and oral contrast to rule out abscess 7. Left IJ discontinued this morning. No tip culture obtained as IJ was discontinued prior to culture order being placed. 8. Consult oncology for further evaluation Nurse practitioner note has been reviewed by physician. Signing provider agrees with the documented findings, assessment, and plan of care. Objective - Vital Signs Vital signs: Vital Signs Temp 97.4 F L 07/11/18 05:53 Pulse 105 H 07/11/18 05:53 Resp 24 07/11/18 05:53 BP 107/60 07/11/18 05:53 Pulse Ox 95 07/11/18 05:53 Intake & Output 07/10/18 07/11/18 07/11/18 18:59 06:59 18:59 Intake Total 1050 600 Output Total 235 160 Balance 815 440 Weight 142.3 kg Intake: Intake, IV Titration 600 Amount Sodium Chloride 0.9% 1, 600 000 ml @ 75 mls/hr IV . [id number] Rx#:[id number] Oral 1050 Output: Drainage 235 160 Right Lower Abdomen 235 160 Other: Voiding Method Bedside Commode # Voids 3 # Bowel Movements 1 - Labs CBC & Chem 7: 07/11/18 10:10 07/11/18 10:10 Labs: Abnormal Lab Results - Last 24 Hours (Table) 07/10/18 07/10/18 07/10/18 Range/Units 12:28 17:25 20:30 WBC (3.8-10.6) k/uL RBC (4.30-5.90) m/uL Hgb (13.0-17.5) gm/dL Hct (39.0-53.0) % MCV (80.0-100.0) fL MCH (25.0-35.0) pg RDW (11.5-15.5) % Neutrophils # (1.3-7.7) k/uL BUN (9-20) mg/dL Glucose (74-99) mg/dL POC Glucose (mg/dL) 212 H 213 H 188 H (75-99) mg/dL Calcium (8.4-10.2) mg/dL 07/11/18 07/11/18 07/11/18 Range/Units 00:05 06:17 10:10 WBC 26.3 H (3.8-10.6) k/uL RBC 3.60 L (4.30-5.90) m/uL Hgb 8.7 L (13.0-17.5) gm/dL Hct 26.9 L (39.0-53.0) % MCV 74.8 L (80.0-100.0) fL MCH 24.2 L (25.0-35.0) pg RDW 15.6 H (11.5-15.5) % Neutrophils # 23.0 H (1.3-7.7) k/uL BUN (9-20) mg/dL Glucose (74-99) mg/dL POC Glucose (mg/dL) 243 H 195 H (75-99) mg/dL Calcium (8.4-10.2) mg/dL 07/11/18 Range/Units 10:10 WBC (3.8-10.6) k/uL RBC (4.30-5.90) m/uL Hgb (13.0-17.5) gm/dL Hct (39.0-53.0) % MCV (80.0-100.0) fL MCH (25.0-35.0) pg RDW (11.5-15.5) % Neutrophils # (1.3-7.7) k/uL BUN 7 L (9-20) mg/dL Glucose 173 H (74-99) mg/dL POC Glucose (mg/dL) (75-99) mg/dL Calcium 7.6 L (8.4-10.2) mg/dL
[2018-07-11 12:09] LABS: Glucose,Whole Blood 208 mg/dL (75-99)
[2018-07-11] MEDS: IOPAMIDOL-300 CONTRAST 30 ML VIAL (ORAL USE) PO PRN ×2 (14:05→15:03)
--- NOTE | 2018-07-11 16:54 | CT ---
EXAMINATION TYPE: CT abdomen pelvis w con DATE OF EXAM: 07/11/2018 COMPARISON: 07/04/2018 HISTORY: 43-year-old male Recent abdominal surgery, increased WBC. TECHNIQUE: Contiguous axial scanning of the abdomen and pelvis following administration of 100 ml Omn ipaque 300 IV contrast. Delayed images through the kidneys and coronal/sagittal reconstructions perf ormed. CT DLP: 3805 mGycm Automated exposure control for dose reduction was used. FINDINGS: Heart normal size without pericardial effusion. Band of atelectasis at the left base. There is volume loss and airspace opacity at the right base with a moderate right pleural effusion. Noncontrast appearance of the gallbladder, kidneys, spleen, right adrenal gland, and pancreas show no gross abnormality. Possible 1.3 cm myelolipoma in the left adrenal gland. Trace perihepatic ascites. There is a 14.1 x 4.3 cm bilateral lentiform fluid collection along the peripheral inferior right kristi er lobe that has a subcapsular appearance. Internal mottled air density is present. Just adjacent anteriorly, additional 4.5 cm fluid collection is present. Contiguous with this extending inferiorly and posteriorly at the site of original abscess is residual 11.3 x 5.3 cm abscess composed of fluid and mildly air. The original abscess estimated at 11.4 x 5.4 cm. A right lower quadrant surgical drain is present and courses anterior and inferior to this location. There is a focally dilated small bowel loop measuring up to 4.5 cm in the right lower quadrant likely postoperative ileus. Oral contrast material is present. No extravasating contrast is identified. Interval partial right hemicolectomy with ileocolonic anastomosis at the level of the proximal transv erse colon. Scattered borderline and mildly enlarged lymph nodes throughout the upper abdomen, mesentery, and ret roperitoneum may be reactive/post inflammatory. The should be reassessed in 3 months to ensure stabil ity/resolution. These lymph nodes measure up to 1.4 cm in the gastrohepatic ligament region, 2.2 cm p ortacaval, and at least 9 mm in the retroperitoneum. Surgical material along the anterior abdominal wall from laparotomy. Bladder nondistended. No free air seen. No abnormal fluid collection in the pelvis. Bones: Mild degenerative changes at the hips. No osseous destructive process. IMPRESSION: 1. INTERVAL RIGHT HEMICOLECTOMY WITH ILEOCOLONIC ANASTOMOSIS AT THE LEVEL OF THE PROXIMAL TRANSVERSE COLON. 2. RESIDUAL RIGHT LOWER QUADRANT ABSCESS MEASURING 11.3 X 5.3 CM (VERSUS APPROXIMATELY 11.4 X 5.4 CM, PREVIOUSLY). THE SURGICAL DRAIN COURSES ANTERIOR AND INFERIOR TO THIS LOCATION. 3. THIS ABSCESSES IS NOW CONTIGUOUS WITH A NEW SUBCAPSULAR LIVER ABSCESS THAT MEASURES 14.1 X 4.3 CM CONTAINING FLUID AND MOTTLED AIR. AN ADDITIONAL SMALLER 4.5 CM ABSCESS IS PRESENT JUST ANTERIORLY WIT HIN THE PERITONEUM. 4. REGIONAL ILEUS WITH SMALL BOWEL LOOP DISTENDED UP TO 4.5 CM IN THE RIGHT LOWER QUADRANT. 5. NUMEROUS BORDERLINE AND MILDLY ENLARGED LYMPH NODES THROUGHOUT THE ABDOMEN MEASURING UP TO 2.2 CM. THESE MAY BE REACTIVE/POST INFLAMMATORY. 3 MONTH FOLLOW-UP RECOMMENDED TO ENSURE RESOLUTION. 6. NEW TRACE PERIHEPATIC ASCITES AND NEW MODERATE RIGHT PLEURAL EFFUSION WITH PROMINENT VOLUME LOSS A ND CONSOLIDATION AT THE RIGHT BASE. CORRELATE WITH PATIENT'S SYMPTOMS TO EXCLUDE PNEUMONIA.
[2018-07-11 17:18] LABS: Glucose,Whole Blood 154 mg/dL (75-99)
--- NOTE | 2018-07-11 17:39 | P.PN ---
Subjective This is a pleasant 43 years old male with past medical history of diabetes mellitus, hypertension, seizure disorder, supraventricular tachycardia. Came originally on 07/04/2018 for feeling lethargic with Palpitation. EKG Showed Supraventricular Tachycardia That Was not been complicated initially. Patient also was complaining from abdominal discomfort. On the presentation his WBC was 11.6, went up to 31.1 hemoglobin 10.3, down from 12.1, currently creatinine is 1.1, he has lactic acid on the presentation 2.4 and 2.9. Liver enzymes are nor mal limits including AST and ALT. He had CAT scan of the abdomen which showed abdominal abscess with ruptured appendix. Surgical team has been consulted and patient underwent exploratory laparotomy with right colectomy. And drainage of the retroperitoneal abscess. Today is postop day #0. Patient has been evaluated by infectious disease also, he was treated with Zosyn and IV vancomycin. Upon ID recommendation. His his worsening kidney function to present acute kidney injury secondary to sepsis and acute tubular necrosis. 07/06/2018 patient is a status post right colectomy for ruptured appendicitis. Today is postop day #1. Patient abdominal pain is controlled. He remains in the ICU. He still nothing by mouth. He is passing gases only but no bowel movement. He denies chest pain or dyspnea.vitals were reviewed, patient is tachycardic and tachypneic. However his blood pressure is controlled and he is saturating 97% on 4 L of oxygen.WBC is 27.3K. Sugar controlled, with mild hypokalemia.he was placed on normal saline 125 mL/h 07/07/2018 patient is a status post right colectomy for ruptured appendicitis. Today is postop day #2. Patient is passing gases. Patient is controlled at the surgical site. No chest pain or dyspnea. vitals are sTable. No urinary problem. As WBC of 20 2.2K. Creatinine is normal. Wound is growing E. coli and blood culture showing gram-negative bacilli. Patient currently on Zosyn and vancomycin. 07/08/2018 Patient remains in the ICU and selective overflow. patient is a status post right colectomy for ruptured appendicitis. Today is postop day #3. Patient remains nothing by mouth except for as chips. He is passing flatus but no bowel movement yet. His abdominal pain is being controlled. Surgical team following the case closely. Also critical care/pulmonary team. Vital signs stable patient is growing E. coli in the wound culture and Bacteroides fragilis and the blood culture. Infectious disease team are following the patient closely and he is currently on vancomycin and Zosyn. 07/09/2018 Patient remains in the ICU, but he looks improving. Patient today is out of bed to chair. He had a loose bowel movement and he was started on a clear liquid diet. Abdominal pain at the surgical site looks controlled. Patient remains on IV antibiotics, and infectious disease team were considering switching patient to oral antibiotics upon discharge. 07/10/2018 Patient is seen today in the general medical floor, is sitting in chair, and ambulate to the restroom back and forth. He is lying comfortable not in distress. His abdominal pain is controlled. He is eating well. Had normal bowel movement. However his get tachycardic easily. He remains on IV antibiotic for his intra-abdominal sepsis. Patient atenolol was restarted 07/11/2018 Patient remains clinically stable. Abdominal pain controlled, having his on diet and has regular bowel movement. Surgical team already ordered a CT of the abdomen/pelvis with IV and oral contrast to rule out abscess. His blood test looks stable. Creatinine 0.6. And he is on normal saline at 75 mL/h. Also patient is on vancomycin and Zosyn. With keep monitor his kidney function closely. His leukocytosis was worsening today from 20.5 up to 20 6.3K. Hemoglobin 8.7. Labs for tomorrow has already been ordered. Objective - Vital Signs Vital signs: Vital Signs Temp 97.4 F L 07/11/18 05:53 Pulse 105 H 07/11/18 05:53 Resp 18 07/11/18 16:00 BP 107/60 07/11/18 05:53 Pulse Ox 95 07/11/18 05:53 Intake & Output 07/10/18 07/11/18 07/11/18 18:59 06:59 18:59 Intake Total 1050 600 Output Total 235 160 342 Balance 815 440 -342 Weight 142.3 kg Intake: Intake, IV Titration 600 Amount Sodium Chloride 0.9% 1, 600 000 ml @ 75 mls/hr IV . [id number] [facility] Rx#:[id number] Oral 1050 Output: Drainage 235 160 340 Right Lower Abdomen 235 160 340 Stool 2 Other: Voiding Method Bedside Commode # Voids 3 # Bowel Movements 1 - Exam GENERAL: The patient is alert and oriented x3, obese HEENT: Pupils are round and equally reacting to light. EOMI. No scleral icterus. No conjunctival pallor. Normocephalic, atraumatic. No pharyngeal erythema. No thyromegaly. CARDIOVASCULAR: S1 and S2 present. No murmurs, rubs, or gallops. PULMONARY: Chest is clear to auscultation, no wheezing or crackles. -ABDOMEN: Soft, nontender, nondistended, normoactive bowel sounds. No palpable organomegaly. midline incision is closed with shawna is in a Place. MUSCULOSKELETAL: No joint swelling or deformity. EXTREMITIES: No cyanosis, clubbing, or pedal edema. NEUROLOGICAL: Gross neurological examination did not reveal any focal deficits. SKIN: No rashes. - Labs CBC & Chem 7: 07/11/18 10:10 07/11/18 10:10 Labs: Abnormal Lab Results - Last 24 Hours (Table) 07/10/18 07/11/18 07/11/18 Range/Units 20:30 00:05 06:17 WBC (3.8-10.6) k/uL RBC (4.30-5.90) m/uL Hgb (13.0-17.5) gm/dL Hct (39.0-53.0) % MCV (80.0-100.0) fL MCH (25.0-35.0) pg RDW (11.5-15.5) % Neutrophils # (1.3-7.7) k/uL BUN (9-20) mg/dL Glucose (74-99) mg/dL POC Glucose (mg/dL) 188 H 243 H 195 H (75-99) mg/dL Calcium (8.4-10.2) mg/dL 07/11/18 07/11/18 07/11/18 Range/Units 10:10 10:10 12:05 WBC 26.3 H (3.8-10.6) k/uL RBC 3.60 L (4.30-5.90) m/uL Hgb 8.7 L (13.0-17.5) gm/dL Hct 26.9 L (39.0-53.0) % MCV 74.8 L (80.0-100.0) fL MCH 24.2 L (25.0-35.0) pg RDW 15.6 H (11.5-15.5) % Neutrophils # 23.0 H (1.3-7.7) k/uL BUN 7 L (9-20) mg/dL Glucose 173 H (74-99) mg/dL POC Glucose (mg/dL) 208 H (75-99) mg/dL Calcium 7.6 L (8.4-10.2) mg/dL 07/11/18 Range/Units 17:16 WBC (3.8-10.6) k/uL RBC (4.30-5.90) m/uL Hgb (13.0-17.5) gm/dL Hct (39.0-53.0) % MCV (80.0-100.0) fL MCH (25.0-35.0) pg RDW (11.5-15.5) % Neutrophils # (1.3-7.7) k/uL BUN (9-20) mg/dL Glucose (74-99) mg/dL POC Glucose (mg/dL) 154 H (75-99) mg/dL Calcium (8.4-10.2) mg/dL Assessment and Plan Assessment: Ruptured appendix with intra-abdominal abscess Severe sepsis secondary to above Patient is status post exploratory laparotomy and right colectomy History of diabetes mellitus History of hypertension History of seizure disorder Supraventricular tachycardia Plan: This is a 43 years old male who presents with sepsis secondary to ruptured appendicitis, status post right colectomy. Patient has been followed by several consultants including surgery, critical care team, infectious disease team. Continue with the same antibiotics as per ID team recommendation. Continue pain management. Labs and medication were reviewed.. Continue same treatment. Continue with symptomatic treatment. Resume home medication. Monitor lytes and vitals. DVT and GI prophylaxis. Further recommendations of the clinical course of the patient DVT prophylaxis: no heparin for now. GI Prophylaxis: Ppi Prognosis is guarded
[2018-07-11 23:56] LABS: Glucose,Whole Blood 185 mg/dL (75-99)
[2018-07-12] MEDS: INSULIN ASPART (NovoLOG) 100 UNIT/ML VIAL SQ SCH ×4 (00:53→17:06)
[2018-07-12] MEDS: PIPERACILLIN-TAZOBACTAM 3.375 GM in SODIUM CHLORIDE 0.9% 100 ML IVPB SCH ×3 (01:08→16:24)
[2018-07-12 06:01] LABS: Glucose,Whole Blood 178 mg/dL (75-99)
[2018-07-12] MEDS: VANCOMYCIN 2,000 MG in SODIUM CHLORIDE 0.9% 500 ML 500 ML IVPB SCH ×3 (06:30→23:10)
[2018-07-12] MEDS: INSULIN DETEMIR (LEVEMIR) 100 UNIT/ML SYR SQ SCH (09:07)
[2018-07-12] MEDS: ATENOLOL 25 MG TAB PO SCH (09:08)
[2018-07-12] MEDS: FAMOTIDINE 20 MG TAB PO SCH ×2 (09:08→21:40)
[2018-07-12] MEDS: LORazepam 0.5 MG TAB PO PRN ×2 (09:11→16:30)
[2018-07-12 09:21] LABS: Basophils # (A) 0.1 k/uL (0-0.2); Basophils % (A) 0 %; Eosinophils # (A) 0.4 k/uL (0-0.7); Eosinophils % (A) 2 %; HCT 25.3 % (39.0-53.0); HGB 8.4 gm/dL (13.0-17.5); Hypochromasia Slight; Lymphocytes # (A) 1.8 k/uL (1.0-4.8); Lymphocytes % (A) 7 %; MCHC 33.4 g/dL (31.0-37.0); Mean Platelet Volume 8.1; Microcytosis Slight; Monocytes # (A) 0.9 k/uL (0-1.0); Monocytes % (A) 4 %; Neutrophils # (A) 20.8 k/uL (1.3-7.7); Neutrophils % (A) 85 %; Platelet Count 497 k/uL (150-450); RBC 3.37 m/uL (4.30-5.90); RDW 15.5 % (11.5-15.5); WBC 24.3 k/uL (3.8-10.6)
[2018-07-12 09:23] LABS: INR 1.1 (<1.2); Prothrombin Time 11.4 sec (9.0-12.0)
[2018-07-12 09:27] LABS: Anion Gap 8 mmol/L; Blood Urea Nitrogen 9 mg/dL (9-20); Calcium 7.6 mg/dL (8.4-10.2); Carbon Dioxide 21 mmol/L (22-30); Chloride 109 mmol/L (98-107); Glucose 144 mg/dL (74-99); Potassium 3.9 mmol/L (3.5-5.1); Sodium 138 mmol/L (137-145)
[2018-07-12] MEDS ORDERED: HYDROmorphone 0.5 MG/0.5 ML SYRINGE IVP PRN (10:22)
[2018-07-12] MEDS: HYDROmorphone 1 MG/ML 1 ML SYRINGE IVP PRN ×2 (11:00→20:22)
--- NOTE | 2018-07-12 11:22 | CT ---
EXAMINATION TYPE: CT guided abscess drainage DATE OF EXAM: 07/12/2018 COMPARISON: 07/11/2018 HISTORY: Abdominal abscess drainage by Dr. Olivo. CT DLP: 6102 mGycm The procedure is discussed with the patient, the risks, complications, benefits and alternatives, wer e discussed and any questions were answered. Informed consent was obtained. The patient is placed s upine on the CT table, prepped and draped in the usual sterile fashion. Utilizing a 22-gauge Chiba needle access into the right hepatic space was achieved. There is placemen t of a O.018 guidewire. There was conversion to an O035 system. Serial dilation to 8 Italian with plac ement 8.5 Italian drainage catheter. Repeat imaging demonstrated ideal placement catheter. Sample was obtained and sent to department of pathology. All elements of maximal barrier and sterile technique were utilized. The patient remained stable thr oughout the procedure with no immediate postprocedural complication. IMPRESSION: 1. Successful CT guided right abdominal abscess fluid drainage catheter insertion.
[2018-07-12 12:05] LABS: Glucose,Whole Blood 150 mg/dL (75-99)
[2018-07-12] MEDS: SODIUM CHLORIDE 0.9% 1,000 ML IV SCH (14:01)
--- NOTE | 2018-07-12 15:37 | P.PN ---
Subjective Progress Note Date: 07/12/18 HISTORY OF PRESENT ILLNESS: 43-year-old male who underwent exploratory laparotomy, right colectomy, and drainage of retroperitoneal abscess secondary to ruptured appendicitis. POD #7. Patient seen and examined at the bedside this afternoon with Dr. Stovall. Patient's CAT scan from yesterday reviewed this morning. Interventional radiology was consulted and patient underwent drainage of abdominal abscess with placement of drainage catheter. Approximatel y 150 mL of light brown purulent drainage present in bag. KAROLYN drain with serosanguineous drainage. Patient tolerating diet. Denies nausea or vomiting. Reports BM. White count today 24.3. Hemoglobin 8.4. PHYSICAL EXAM: VITAL SIGNS: Reviewed. GENERAL: Well-developed in no acute distress. HEENT: No sclera icterus. Extraocular movements grossly intact. Moist buccal mucosa. Head is atraumatic, normocephalic. ABDOMEN: Obese. Soft. Nondistended. KAROLYN drain intact with serosanguineous drainage. Drainage bag intact with light brown purulent fluid. NEUROLOGIC: Alert and oriented. Cranial nerves II through XII grossly intact. ASSESSMENT: 1. S/P exploratory laparotomy, right colectomy, and drainage of retroperitoneal abscess secondary to ruptured appendicitis, pathology positive for adenocarcinoma 2. Sepsis, present on admission 3. Status post drainage of abdominal abscess with insertion of drainage collection bag PLAN: 1. Continue consistent carb/heart healthy diet 2. Activity as tolerated 3. Pain control 4. Incentive spirometry 5. Monitor WBC. Continue antibiotics per ID. Nurse practitioner note has been reviewed by physician. Signing provider agrees with the documented findings, assessment, and plan of care. Objective - Vital Signs Vital signs: Vital Signs Temp 98.7 F 07/12/18 13:35 Pulse 88 07/12/18 13:35 Resp 20 07/12/18 13:35 BP 104/58 07/12/18 13:35 Pulse Ox 98 07/12/18 13:35 Intake & Output 07/11/18 07/12/18 07/12/18 18:59 06:59 18:59 Intake Total 1200 Output Total 342 70 335 Balance -342 1130 -335 Weight 142.3 kg Intake: IV 100 Piperacillin-Tazobactam 3 100 .375 gm In Sodium Chloride 0.9% 100 ml @ 25 mls/hr IVPB Q8HR [facility] Rx# :[id number] Intake, IV Titration 1100 Amount Sodium Chloride 0.9% 1, 600 000 ml @ 75 mls/hr IV . [id number] [facility] Rx#:[id number] Vancomycin 2,000 mg In 500 Sodium Chloride 0.9% 500 ml 500 ml @ 167 mls/hr IVPB Q8H [facility] Rx#: [id number] Output: Drainage 340 70 335 Right Lower Abdomen 340 70 335 Stool 2 Other: # Voids 1 - Labs CBC & Chem 7: 07/12/18 08:43 07/12/18 08:34 Labs: Abnormal Lab Results - Last 24 Hours (Table) 07/11/18 07/11/18 07/12/18 Range/Units 17:16 23:56 06:00 WBC (3.8-10.6) k/uL RBC (4.30-5.90) m/uL Hgb (13.0-17.5) gm/dL Hct (39.0-53.0) % MCV (80.0-100.0) fL Plt Count (150-450) k/uL Neutrophils # (1.3-7.7) k/uL Chloride (98-107) mmol/L Carbon Dioxide (22-30) mmol/L Glucose (74-99) mg/dL POC Glucose (mg/dL) 154 H 185 H 178 H (75-99) mg/dL Calcium (8.4-10.2) mg/dL 07/12/18 07/12/18 07/12/18 Range/Units 08:34 08:43 12:02 WBC 24.3 H (3.8-10.6) k/uL RBC 3.37 L (4.30-5.90) m/uL Hgb 8.4 L (13.0-17.5) gm/dL Hct 25.3 L (39.0-53.0) % MCV 75.0 L (80.0-100.0) fL Plt Count 497 H (150-450) k/uL Neutrophils # 20.8 H (1.3-7.7) k/uL Chloride 109 H (98-107) mmol/L Carbon Dioxide 21 L (22-30) mmol/L Glucose 144 H (74-99) mg/dL POC Glucose (mg/dL) 150 H (75-99) mg/dL Calcium 7.6 L (8.4-10.2) mg/dL
[2018-07-12 15:38] LABS: Appearance,BF Cloudy; Nucleated Cells, Body Fluid 77600 /uL; RBC, Body Fluid 3400 /uL
[2018-07-12 15:41] LABS: Mononuclear WBC,Body Fluid 21 %; Polynuclear WBC,Body Fluid 79 %; Total Cells Counted,Body Fluid 100
[2018-07-12 17:03] LABS: Glucose,Whole Blood 177 mg/dL (75-99)
--- NOTE | 2018-07-12 18:03 | P.CONS ---
History of Present Illness - Reason for Consult Consult date: 07/11/18 newly diagnosed colon adenocarcinoma Requesting physician: Patsy House - Chief Complaint fever - History of Present Illness Mr. Mckinney is a very pleasant 43-year-old male with comorbid conditions including obesity, diabetes mellitus who was in his normal state of health up until the last few weeks. Over the last week and a half patient has had decreased appetite, loss of appetite, family notes weight loss, vomiting over the last week, he was admitted to the ER and 328 with fevers, lethargy. At that time he was suspected to have a ruptured appendix with an intra-abdominal abscess and sepsis. A CT of the chest abdomen and pelvis showed a right mid a bdomen 13 x 6 cm mass with some enlarged periaortic lymph nodes and some non- specific pulmonary nodules. Patient was taken to surgery on [address] Goldstein. He had a right colectomy with draining of a retroperitoneal abscess. On 41 the pathology returned positive for adenocarcinoma, grade 1 pathological T3 N1 MX. MSI has been sent. Since the surgery patient did okay until recurrence of Review of Systems 14 point ROS is negative except as stated in HPI Past Medical History Past Medical History: Diabetes Mellitus, Hypertension, Seizure Disorder, Supraventricular Tachycardia (SVT) Additional Past Medical History / Comment(s): last seizure 2.5yrs ago History of Any Multi-Drug Resistant Organisms: None Reported Past Surgical History: Hernia Repair, Orthopedic Surgery, Tonsillectomy Additional Past Surgical History / Comment(s): right knee sx, upper palate reconstruction for sleep apnea Past Anesthesia/Blood Transfusion Reactions: No Reported Reaction Past Psychological History: Bipolar, Depression, Schizophrenia Additional Psychological History / Comment(s): no current thoughts of harming self. Smoking Status: Former smoker Past Alcohol Use History: None Reported Additional Past Alcohol Use History / Comment(s): Patient was a smoker one pack per day of cigarettes for 5 years and quit in 1992. He does smoke marijuana occasionally. He denies any illicit drug use or alcohol use. He lives with his son and a roommate and recently moved to [facility] 4 years ago. He is on disability due to mental health illness with bipolar disorder. He worked in the past in [employer]. He denies any travel, no service. Past Drug Use History: Marijuana Additional Drug Use History / Comment(s): Current marijuana smoker. - Past Family History Mother Family Medical History: Diabetes Mellitus Additional Family Medical History / Comment(s): CHF Medications and Allergies Home Medications Medication Instructions Recorded Confirmed Type Insulin Glargine [Lantus] 50 units SQ HS 03/23/15 07/04/18 History Atorvastatin Calcium [Lipitor] 20 mg PO HS 09/14/16 07/04/18 History DULoxetine HCL [Cymbalta] 60 mg PO DAILY 09/14/16 07/04/18 History metFORMIN HCL [Glucophage] 850 mg PO TID 09/14/16 07/04/18 History Atenolol 25 mg PO DAILY 07/04/18 07/04/18 History DULoxetine HCL [Cymbalta] 30 mg PO DAILY 07/04/18 07/04/18 History Divalproex [Depakote] 250 mg PO HS 07/04/18 07/04/18 History Lisinopril [Zestril] 10 mg PO DAILY 07/04/18 07/04/18 History Vortioxetine Hydrobromide 10 mg PO DAILY 07/04/18 07/04/18 History [Trintellix] Allergies Allergy/AdvReac Type Severity Reaction Status Date / Time carbamazepine [From Tegretol] Allergy Severe Anaphylaxis Verified 07/04/18 17:02 lithium [[place]] Allergy Severe Anaphylaxis Verified 07/04/18 17:02 shellfish derived Allergy Severe Anaphylaxis Verified 07/04/18 17:02 aspartame Allergy Unknown Verified 07/04/18 17:02 citalopram hydrobromide AdvReac Intermediate Nausea & Verified 07/04/18 17:02 [From Celexa] Vomiting Physical Exam Vitals: Vital Signs Temp Pulse Resp BP Pulse Ox 07/11/18 05:53 97.4 F L 105 H 24 107/60 95 07/10/18 23:00 97.9 F 106 H 26 H 128/74 95 07/10/18 20:10 18 07/10/18 15:00 98.9 F 113 H 18 113/72 95 Intake and Output 07/10/18 07/11/18 07/11/18 22:59 06:59 14:59 Intake Total 600 Output Total 100 160 Balance 500 -160 Intake: Intake, IV Titration 600 Amount Sodium Chloride 0.9% 1, 600 000 ml @ 75 mls/hr IV . [id number] [facility] Rx#:[id number] Output: Drainage 100 160 Right Lower Abdomen 100 160 Other: # Voids 3 # Bowel Movements 1 - Constitutional General appearance: cooperative, no acute distress, obese - EENT Eyes: anicteric sclerae, EOMI ENT: hearing grossly normal, normal oropharynx - Neck Neck: no lymphadenopathy - Respiratory Respiratory: bilateral: CTA - Cardiovascular Rhythm: regular Heart sounds: normal: S1, S2 Abnormal Heart Sounds: no systolic murmur, no diastolic murmur, no rub, no S3 Gallop, no S4 Gallop, no click, no other leg Peripheral Edema: bilateral: None - Gastrointestinal General gastrointestinal: decreased bowel sounds, distended, soft - Integumentary Integumentary: normal, normal turgor - Neurologic Neurologic: CNII-XII intact - Musculoskeletal Musculoskeletal: strength equal bilaterally - Psychiatric Psychiatric: A&O x's 3, appropriate affect, intact judgment & insight Results CBC & Chem 7: 07/12/18 08:43 07/12/18 08:34 Labs: Abnormal Lab Results - Last 24 Hours (Table) 07/10/18 07/10/18 07/10/18 Range/Units 12:28 17:25 20:30 WBC (3.8-10.6) k/uL RBC (4.30-5.90) m/uL Hgb (13.0-17.5) gm/dL Hct (39.0-53.0) % MCV (80.0-100.0) fL MCH (25.0-35.0) pg RDW (11.5-15.5) % Neutrophils # (1.3-7.7) k/uL BUN (9-20) mg/dL Glucose (74-99) mg/dL POC Glucose (mg/dL) 212 H 213 H 188 H (75-99) mg/dL Calcium (8.4-10.2) mg/dL 07/11/18 07/11/18 07/11/18 Range/Units 00:05 06:17 10:10 WBC 26.3 H (3.8-10.6) k/uL RBC 3.60 L (4.30-5.90) m/uL Hgb 8.7 L (13.0-17.5) gm/dL Hct 26.9 L (39.0-53.0) % MCV 74.8 L (80.0-100.0) fL MCH 24.2 L (25.0-35.0) pg RDW 15.6 H (11.5-15.5) % Neutrophils # 23.0 H (1.3-7.7) k/uL BUN (9-20) mg/dL Glucose (74-99) mg/dL POC Glucose (mg/dL) 243 H 195 H (75-99) mg/dL Calcium (8.4-10.2) mg/dL 07/11/18 Range/Units 10:10 WBC (3.8-10.6) k/uL RBC (4.30-5.90) m/uL Hgb (13.0-17.5) gm/dL Hct (39.0-53.0) % MCV (80.0-100.0) fL MCH (25.0-35.0) pg RDW (11.5-15.5) % Neutrophils # (1.3-7.7) k/uL BUN 7 L (9-20) mg/dL Glucose 173 H (74-99) mg/dL POC Glucose (mg/dL) (75-99) mg/dL Calcium 7.6 L (8.4-10.2) mg/dL CT scan - abdomen: report reviewed CT scan - chest: report reviewed CT scan - pelvis: report reviewed Assessment and Plan (1) Adenocarcinoma, colon Narrative/Plan: Recent pathology confirmed the diagnosis of a grade 1 pathological T3 N1 be adenocarcinoma of the right colon. CT of the chest had some nonspecific lung nodules. Some enlarged periaortic lymph nodes but no other disease. Patient was also found to have a ruptured appendix as well as an abscess. We discussed patient's diagnosis. Patient would be at least stage III. We discussed the need for chemotherapy as the patient did have a T3 tumor, 2 out of 8 positive lymph nodes and there was a positive mesenteric margin. Patient is not a candidate for chemotherapy until he has healed adequately from surgery and has completed all antibiotic regimens, anticipate somewhere between 4 and 6 weeks. We discussed the possibility of genetic testing due to the patient's young age. We also reviewed the importance of his children to receive colonoscopy screenings at the age of 35, 10 years prior to pt diagnosis. Patient family verbalized understanding the plan at this time. After discussion with Dr. Whalen patient is going to be scheduled for PET scan in about 2 weeks as he is a fresh postop. Will ensure a follow-up about one week after the PET scan with Dr. Whalen. This will be communicated to the patient and the family at our next discussion. Current Visit: Yes Status: Acute Priority: High Code(s): C18.9 - MALIGNANT NEOPLASM OF COLON, UNSPECIFIED SNOMED Code(s): 144305946
--- NOTE | 2018-07-13 00:22 | P.PN ---
Subjective Progress Note Date: 07/13/18 Pt denied any new complaints. His pain is reasonably controlled. Bowel function has resumed. he is tolerating a diet. he had a drain placed yesterday for his RLQ abcess. Objective - Vital Signs Vital signs: Vital Signs Temp 98.1 F 07/12/18 21:31 Pulse 100 07/12/18 21:31 Resp 21 07/12/18 21:31 BP 135/76 07/12/18 21:31 Pulse Ox 98 07/12/18 13:35 Intake & Output 07/12/18 07/12/18 07/13/18 06:59 18:59 06:59 Intake Total 1200 Output Total 70 605 100 Balance 1130 -605 -100 Intake: IV 100 Piperacillin-Tazobactam 3 100 .375 gm In Sodium Chloride 0.9% 100 ml @ 25 mls/hr IVPB Q8HR [facility] Rx# :[id number] Intake, IV Titration 1100 Amount Sodium Chloride 0.9% 1, 600 000 ml @ 75 mls/hr IV . [id number] [facility] Rx#:[id number] Vancomycin 2,000 mg In 500 Sodium Chloride 0.9% 500 ml 500 ml @ 167 mls/hr IVPB Q8H [facility] Rx#: [id number] Output: Drainage 70 605 100 Right Abdomen 200 100 Right Lower Abdomen 70 405 Other: Voiding Method Toilet Urinal # Voids 1 1 - Constitutional General appearance: Present: no acute distress - EENT Eyes: Present: EOMI ENT: Present: hearing grossly normal, normal oropharynx - Respiratory Respiratory: bilateral: diminished - Cardiovascular Rhythm: regular Heart sounds: normal: S1, S2 - Gastrointestinal Gastrointestinal Comment(s): RLQ abdominal drain General gastrointestinal: Present: decreased bowel sounds, soft - Integumentary Integumentary: Present: normal - Neurologic Neurologic: Present: CNII-XII intact - Musculoskeletal Musculoskeletal: Present: generalized weakness, strength equal bilaterally - Psychiatric Psychiatric: Present: A&O x's 3, appropriate affect - Labs CBC & Chem 7: 07/12/18 08:43 07/12/18 08:34 Labs: Abnormal Lab Results - Last 24 Hours (Table) 07/12/18 07/12/18 07/12/18 Range/Units 06:00 08:34 08:43 WBC 24.3 H (3.8-10.6) k/uL RBC 3.37 L (4.30-5.90) m/uL Hgb 8.4 L (13.0-17.5) gm/dL Hct 25.3 L (39.0-53.0) % MCV 75.0 L (80.0-100.0) fL Plt Count 497 H (150-450) k/uL Neutrophils # 20.8 H (1.3-7.7) k/uL Chloride 109 H (98-107) mmol/L Carbon Dioxide 21 L (22-30) mmol/L Glucose 144 H (74-99) mg/dL POC Glucose (mg/dL) 178 H (75-99) mg/dL Calcium 7.6 L (8.4-10.2) mg/dL 07/12/18 07/12/18 Range/Units 12:02 16:49 WBC (3.8-10.6) k/uL RBC (4.30-5.90) m/uL Hgb (13.0-17.5) gm/dL Hct (39.0-53.0) % MCV (80.0-100.0) fL Plt Count (150-450) k/uL Neutrophils # (1.3-7.7) k/uL Chloride (98-107) mmol/L Carbon Dioxide (22-30) mmol/L Glucose (74-99) mg/dL POC Glucose (mg/dL) 150 H 177 H (75-99) mg/dL Calcium (8.4-10.2) mg/dL Microbiology - Last 24 Hours (Table) 07/12/18 11:30 Anaerobic Culture - Preliminary Abdomen 07/12/18 11:30 Body Fluid Culture - Preliminary Paracentesis Fluid Assessment and Plan (1) Adenocarcinoma, colon Narrative/Plan: The pt's path was again reviewed with him. he was advised that he has high risk disease with positive margins, perforation, and node positivity. Therefore risk of recurrence with surgery alone would be quite high. Thus ideally aggressive adjuvant chemotherapy with FOLFOX would be recommended. The rationale was discussed in detail. He will need to recover adequately from his surgery, and abcess before chemo can be started. he will be followed up in the office in 3-4 weeks. he will have a PET scan as an outpt prior to the OV. Current Visit: Yes Status: Acute Priority: High Code(s): C18.9 - MALIGNANT NEOPLASM OF COLON, UNSPECIFIED SNOMED Code(s): 877989469 (2) Intra-abdominal abscess Narrative/Plan: S/P drain, on abx. Defer to surgery and other consultants for ongoing management Current Visit: Yes Status: Acute Code(s): K65.1 - PERITONEAL ABSCESS SNOMED Code(s): 71250170 (3) Anemia Narrative/Plan: Due to inflammation and post op state. check iron studies to r/o deficiency. Hgb is in a safe range. Continue to monitor and support as needed Current Visit: Yes Status: Acute Code(s): D64.9 - ANEMIA, UNSPECIFIED SNOMED Code(s): 356318419
[2018-07-13] MEDS: PIPERACILLIN-TAZOBACTAM 3.375 GM in SODIUM CHLORIDE 0.9% 100 ML IVPB SCH ×4 (00:23→23:10)
[2018-07-13] MEDS: FAMOTIDINE 20 MG TAB PO SCH ×3 (00:23→21:21)
[2018-07-13] MEDS: ACETAMINOPHEN TAB 325 MG TAB PO PRN (00:23)
[2018-07-13] MEDS: SODIUM CHLORIDE 0.9% 1,000 ML IV SCH ×2 (00:23→12:05)
[2018-07-13] MEDS: INSULIN ASPART (NovoLOG) 100 UNIT/ML VIAL SQ SCH ×5 (00:24→23:07)
[2018-07-13 00:27] LABS: Glucose,Whole Blood 139 mg/dL (75-99)
[2018-07-13] MEDS ORDERED: VANCOMYCIN TROUGH DUE 1 EACH MISC MISCELLANE ONE (05:00)
[2018-07-13 06:14] LABS: Glucose,Whole Blood 174 mg/dL (75-99)
[2018-07-13] MEDS: VANCOMYCIN 2,000 MG in SODIUM CHLORIDE 0.9% 500 ML 500 ML IVPB SCH (06:14)
[2018-07-13] MEDS: ATENOLOL 25 MG TAB PO SCH (07:29)
[2018-07-13] MEDS: INSULIN DETEMIR (LEVEMIR) 100 UNIT/ML SYR SQ SCH (08:53)
--- NOTE | 2018-07-13 10:06 | P.PN ---
Progress Note - Text Progress Note Date: 07/13/18 The patient feels better since his CT-guided drainage of abscess. On exam is lesser stable. His abdomen soft. The CT-guided drain has less purulent fluid this morning. Status post right colectomy for invasive cancer with perforation and abscess. The patient will continue receive IV antibiotics. He'll be scheduled for a PICC line insertion on Sunday for home IV antibiotic therapy.
--- NOTE | 2018-07-13 11:07 | P.PN ---
Subjective Progress Note Date: 07/12/18 Principal diagnosis: Status post exploratory laparotomy with right colectomy; pathology positive for adenocarcinoma Sepsis present on admission 43-year-old male who underwent exploratory laparotomy, right colectomy, and drainage of retroperitoneal abscess secondary to ruptured appendicitis. POD # 7. Patient is currently sitting up in the chair. Patient reports his pain is tolerable at this time. Tolerating consistent carb/heart healthy diet. Reports bowel movement this morning. Denies nausea or vomiting. KAROLYN drain with serosanguineous drainage. 50 mL emptied this morning per nursing. 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 2 of 8 samples mesenteric lymph node positive for metastasis with multiple tumor deposits. Patient aware of pathology results. Patient reports both his maternal and paternal grandmothers had colon cancer. WBC today is 24.3. Hemoglobin 8.4. Objective - Vital Signs Vital signs: Vital Signs Temp 99.6 F 07/12/18 05:00 Pulse 102 H 07/12/18 05:00 Resp 24 07/12/18 05:00 BP 119/71 07/12/18 05:00 Pulse Ox 95 07/12/18 05:00 Intake & Output 07/11/18 07/12/18 07/12/18 18:59 06:59 18:59 Intake Total 1200 Output Total 342 70 Balance -342 1130 Weight 142.3 kg Intake: IV 100 Piperacillin-Tazobactam 3 100 .375 gm In Sodium Chloride 0.9% 100 ml @ 25 mls/hr IVPB Q8HR [facility] Rx# :[id number] Intake, IV Titration 1100 Amount Sodium Chloride 0.9% 1, 600 000 ml @ 75 mls/hr IV . [id number] [facility] Rx#:[id number] Vancomycin 2,000 mg In 500 Sodium Chloride 0.9% 500 ml 500 ml @ 167 mls/hr IVPB Q8H [facility] Rx#: [id number] Output: Drainage 340 70 Right Lower Abdomen 340 70 Stool 2 Other: # Voids 1 - Exam GENERAL: The patient is alert and oriented x3, obese HEENT: Pupils are round and equally reacting to light. EOMI. No scleral icterus. No conjunctival pallor. Normocephalic, atraumatic. No pharyngeal erythema. No thyromegaly. CARDIOVASCULAR: S1 and S2 present. No murmurs, rubs, or gallops. PULMONARY: Chest is clear to auscultation, no wheezing or crackles. -ABDOMEN: Soft, nontender, nondistended, normoactive bowel sounds. No palpable organomegaly. midline incision is closed with shawna is in a Place. MUSCULOSKELETAL: No joint swelling or deformity. EXTREMITIES: No cyanosis, clubbing, or pedal edema. NEUROLOGICAL: Gross neurological examination did not reveal any focal deficits. SKIN: No rashes. - Labs CBC & Chem 7: 07/12/18 08:43 07/12/18 08:34 Labs: Abnormal Lab Results - Last 24 Hours (Table) 07/11/18 07/11/18 07/11/18 Range/Units 10:10 10:10 12:05 WBC 26.3 H (3.8-10.6) k/uL RBC 3.60 L (4.30-5.90) m/uL Hgb 8.7 L (13.0-17.5) gm/dL Hct 26.9 L (39.0-53.0) % MCV 74.8 L (80.0-100.0) fL MCH 24.2 L (25.0-35.0) pg RDW 15.6 H (11.5-15.5) % Plt Count (150-450) k/uL Neutrophils # 23.0 H (1.3-7.7) k/uL Chloride (98-107) mmol/L Carbon Dioxide (22-30) mmol/L BUN 7 L (9-20) mg/dL Glucose 173 H (74-99) mg/dL POC Glucose (mg/dL) 208 H (75-99) mg/dL Calcium 7.6 L (8.4-10.2) mg/dL 07/11/18 07/11/18 07/12/18 Range/Units 17:16 23:56 06:00 WBC (3.8-10.6) k/uL RBC (4.30-5.90) m/uL Hgb (13.0-17.5) gm/dL Hct (39.0-53.0) % MCV (80.0-100.0) fL MCH (25.0-35.0) pg RDW (11.5-15.5) % Plt Count (150-450) k/uL Neutrophils # (1.3-7.7) k/uL Chloride (98-107) mmol/L Carbon Dioxide (22-30) mmol/L BUN (9-20) mg/dL Glucose (74-99) mg/dL POC Glucose (mg/dL) 154 H 185 H 178 H (75-99) mg/dL Calcium (8.4-10.2) mg/dL 07/12/18 07/12/18 Range/Units 08:34 08:43 WBC 24.3 H (3.8-10.6) k/uL RBC 3.37 L (4.30-5.90) m/uL Hgb 8.4 L (13.0-17.5) gm/dL Hct 25.3 L (39.0-53.0) % MCV 75.0 L (80.0-100.0) fL MCH (25.0-35.0) pg RDW (11.5-15.5) % Plt Count 497 H (150-450) k/uL Neutrophils # 20.8 H (1.3-7.7) k/uL Chloride 109 H (98-107) mmol/L Carbon Dioxide 21 L (22-30) mmol/L BUN (9-20) mg/dL Glucose 144 H (74-99) mg/dL POC Glucose (mg/dL) (75-99) mg/dL Calcium 7.6 L (8.4-10.2) mg/dL Assessment and Plan Assessment: 1. Ruptured appendix with intra-abdominal abscess - Patient remains on Zosyn 3.375 g IV every 8 hours along with vancomycin 2000 mg IV every 8 hours 2. Severe sepsis on admission secondary to above 3. Status post exploratory laparotomy with right colectomy; - pathology positive for adenocarcinoma: Oncology is following - Surgery is following; patient is to continue with consistent carb/heart healthy diet - Plan is to increase activity as tolerated; continue with pain control; incentive spirometry encouraged - ID on board for antibiotic management 4. Diabetes mellitus - Continue with Levemir 20 units subcu daily - Continue to monitor Accu-Cheks every before meals and at bedtime with insulin sliding scale 5. Hypertension; stable on home dose of atenolol 6. Hyperlipidemia; currently not on statin therapy 7. DVT prophylaxis; SCDs only CODE STATUS; full code Time with Patient: Greater than 30
[2018-07-13 12:15] LABS: Glucose,Whole Blood 167 mg/dL (75-99)
[2018-07-13] MEDS: LORazepam 0.5 MG TAB PO PRN ×2 (14:10→21:21)
[2018-07-13] MEDS: VANCOMYCIN 1,750 MG in SODIUM CHLORIDE 0.9% 500 ML 500 ML IVPB SCH ×2 (14:11→21:21)
[2018-07-13 17:16] LABS: Glucose,Whole Blood 150 mg/dL (75-99)
[2018-07-13 23:06] LABS: Glucose,Whole Blood 158 mg/dL (75-99)
[2018-07-14] MEDS: HYDROcodone/APAP 5-325MG 1 EACH TAB PO PRN (00:36)
[2018-07-14] MEDS: SODIUM CHLORIDE 0.9% 1,000 ML IV SCH ×2 (05:07→14:23)
[2018-07-14] MEDS: VANCOMYCIN 1,750 MG in SODIUM CHLORIDE 0.9% 500 ML 500 ML IVPB SCH ×3 (05:07→21:05)
[2018-07-14 05:44] LABS: Glucose,Whole Blood 141 mg/dL (75-99)
[2018-07-14] MEDS: INSULIN ASPART (NovoLOG) 100 UNIT/ML VIAL SQ SCH ×3 (05:50→17:18)
[2018-07-14] MEDS: PIPERACILLIN-TAZOBACTAM 3.375 GM in SODIUM CHLORIDE 0.9% 100 ML IVPB SCH ×2 (07:29→15:08)
[2018-07-14] MEDS: ATENOLOL 25 MG TAB PO SCH (07:29)
[2018-07-14] MEDS: FAMOTIDINE 20 MG TAB PO SCH ×2 (07:29→20:28)
[2018-07-14] MEDS: INSULIN DETEMIR (LEVEMIR) 100 UNIT/ML SYR SQ SCH (08:04)
--- NOTE | 2018-07-14 11:07 | P.PN ---
Progress Note - Text Progress Note Date: 07/14/18 The patient is resting comfortably in his chair. He has minimal colitis of pain. On exam his vital signs appear stable. His abdomen soft. Incision site is clean dry and intact. Status post drainage which prolapses. Patient will continue IV antibiotic. We will reevaluate his abscess with another CAT scan prior to discharge.
[2018-07-14] MEDS: VORTIOXETINE HYDROBROMIDE 10 MG TABLET PO SCH (11:47)
[2018-07-14] MEDS: DULoxetine HCL 30 MG CAPSULE.DR PO SCH (11:47)
[2018-07-14] MEDS: DULoxetine HCL 60 MG CAPSULE.DR PO SCH (11:47)
[2018-07-14 11:51] LABS: HCT 24.7 % (39.0-53.0); Hypochromasia Slight; MCH 24.4 pg (25.0-35.0); MCHC 32.5 g/dL (31.0-37.0); MCV 75.3 fL (80.0-100.0); Mean Platelet Volume 7.4; Microcytosis Slight; Platelet Count 613 k/uL (150-450); RBC 3.29 m/uL (4.30-5.90); RDW 15.3 % (11.5-15.5); WBC 15.2 k/uL (3.8-10.6)
[2018-07-14 11:55] LABS: Anion Gap 7 mmol/L; Blood Urea Nitrogen 9 mg/dL (9-20); Calcium 7.8 mg/dL (8.4-10.2); Carbon Dioxide 24 mmol/L (22-30); Chloride 109 mmol/L (98-107); Glucose 181 mg/dL (74-99); Sodium 140 mmol/L (137-145)
[2018-07-14 12:16] LABS: Glucose,Whole Blood 203 mg/dL (75-99)
--- NOTE | 2018-07-14 14:51 | P.PN ---
Subjective Progress Note Date: 07/13/18 Principal diagnosis: Status post exploratory laparotomy with right colectomy; pathology positive for adenocarcinoma Sepsis present on admission 43-year-old male who underwent exploratory laparotomy, right colectomy, and drainage of retroperitoneal abscess secondary to ruptured appendicitis. POD # 7. Patient is currently sitting up in the chair. Patient reports his pain is tolerable at this time. Tolerating consistent carb/heart healthy diet. Reports bowel movement this morning. Denies nausea or vomiting. KAROLYN drain with serosanguineous drainage. 50 mL emptied this morning per nursing. 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 2 of 8 samples mesenteric lymph node positive for metastasis with multiple tumor deposits. Patient aware of pathology results. Patient reports both his maternal and paternal grandmothers had colon cancer. WBC today is 24.3. Hemoglobin 8.4. 07/13/2018 Patient is seen and evaluated at bedside; patient is status post CT-guided drainage of abscess draining less purulent fluid this morning; patient is status post right colectomy for invasive cancer with perforation and abscess; patient will resume IV antibiotics; patient is scheduled for PICC line placement on Sunday for home IV antibiotic therapy; IDs on board and will be recommending final IV antibiotic and duration of therapy Objective - Vital Signs Vital signs: Vital Signs Temp 98.3 F 07/13/18 05:30 Pulse 88 07/13/18 05:30 Resp 18 07/13/18 05:30 BP 148/77 07/13/18 05:30 Pulse Ox 95 07/13/18 05:30 Intake & Output 07/12/18 07/13/18 07/13/18 18:59 06:59 18:59 Output Total 605 100 40 Balance -605 -100 -40 Output: Drainage 605 100 40 Right Abdomen 200 100 Right Lower Abdomen 405 40 Other: Voiding Method Toilet Urinal # Voids 1 3 # Bowel Movements 2 - Exam GENERAL: The patient is alert and oriented x3, obese HEENT: Pupils are round and equally reacting to light. EOMI. No scleral icterus. No conjunctival pallor. Normocephalic, atraumatic. No pharyngeal erythema. No thyromegaly. CARDIOVASCULAR: S1 and S2 present. No murmurs, rubs, or gallops. PULMONARY: Chest is clear to auscultation, no wheezing or crackles. -ABDOMEN: Soft, nontender, nondistended, normoactive bowel sounds. No palpable organomegaly. midline incision is closed with shawna is in a Place. MUSCULOSKELETAL: No joint swelling or deformity. EXTREMITIES: No cyanosis, clubbing, or pedal edema. NEUROLOGICAL: Gross neurological examination did not reveal any focal deficits. SKIN: No rashes. - Labs CBC & Chem 7: 07/12/18 08:43 07/12/18 08:34 Labs: Abnormal Lab Results - Last 24 Hours (Table) 07/12/18 07/12/18 07/13/18 Range/Units 12:02 16:49 00:19 POC Glucose (mg/dL) 150 H 177 H 139 H (75-99) mg/dL 07/13/18 Range/Units 06:11 POC Glucose (mg/dL) 174 H (75-99) mg/dL Microbiology - Last 24 Hours (Table) 07/12/18 11:30 Gram Stain - Preliminary Paracentesis Fluid Body Fluid Culture - Preliminary 07/12/18 11:30 Anaerobic Culture - Preliminary Abdomen Assessment and Plan Assessment: 1. Ruptured appendix with intra-abdominal abscess - Patient remains on Zosyn 3.375 g IV every 8 hours along with vancomycin 2000 mg IV every 8 hours 2. Severe sepsis on admission secondary to above 3. Status post exploratory laparotomy with right colectomy; - pathology positive for adenocarcinoma: Oncology is following - Surgery is following; patient is to continue with consistent carb/heart healthy diet - Plan is to increase activity as tolerated; continue with pain control; incentive spirometry encouraged - ID on board for antibiotic management 4. Diabetes mellitus - Continue with Levemir 20 units subcu daily - Continue to monitor Accu-Cheks every before meals and at bedtime with insulin sliding scale 5. Hypertension; stable on home dose of atenolol 6. Hyperlipidemia; currently not on statin therapy 7. DVT prophylaxis; SCDs only CODE STATUS; full code Time with Patient: Greater than 30
[2018-07-14 17:36] LABS: Glucose,Whole Blood 94 mg/dL (75-99)
[2018-07-14] MEDS: LORazepam 0.5 MG TAB PO PRN (20:28)
[2018-07-15 00:16] LABS: Glucose,Whole Blood 193 mg/dL (75-99)
[2018-07-15] MEDS: PIPERACILLIN-TAZOBACTAM 3.375 GM in SODIUM CHLORIDE 0.9% 100 ML IVPB SCH ×4 (00:27→23:44)
[2018-07-15] MEDS: INSULIN ASPART (NovoLOG) 100 UNIT/ML VIAL SQ SCH ×4 (00:27→17:07)
[2018-07-15] MEDS: SODIUM CHLORIDE 0.9% 1,000 ML IV SCH ×2 (00:28→15:33)
[2018-07-15] MEDS ORDERED: VANCOMYCIN TROUGH DUE 1 EACH MISC MISCELLANE ONE (05:00)
[2018-07-15] MEDS: VANCOMYCIN 1,750 MG in SODIUM CHLORIDE 0.9% 500 ML 500 ML IVPB SCH ×3 (05:29→21:21)
[2018-07-15 05:48] LABS: Basophils # (A) 0.1 k/uL (0-0.2); Basophils % (A) 0 %; Eosinophils # (A) 0.4 k/uL (0-0.7); Eosinophils % (A) 2 %; HCT 26.7 % (39.0-53.0); HGB 8.2 gm/dL (13.0-17.5); Hypochromasia Slight; Lymphocytes % (A) 14 %; MCH 23.2 pg (25.0-35.0); MCHC 30.9 g/dL (31.0-37.0); MCV 75.3 fL (80.0-100.0); Mean Platelet Volume 6.8; Microcytosis Slight; Monocytes # (A) 0.8 k/uL (0-1.0); Monocytes % (A) 5 %; Neutrophils # (A) 11.4 k/uL (1.3-7.7); Neutrophils % (A) 76 %; Platelet Count 655 k/uL (150-450); RBC 3.54 m/uL (4.30-5.90); RDW 15.8 % (11.5-15.5)
[2018-07-15 06:09] LABS: Glucose,Whole Blood 171 mg/dL (75-99)
[2018-07-15 06:25] LABS: Anion Gap 8 mmol/L; Blood Urea Nitrogen 8 mg/dL (9-20); Calcium 8.1 mg/dL (8.4-10.2); Carbon Dioxide 23 mmol/L (22-30); Chloride 109 mmol/L (98-107); Glucose 150 mg/dL (74-99); Potassium 4.3 mmol/L (3.5-5.1); Sodium 140 mmol/L (137-145)
[2018-07-15] MEDS: ATENOLOL 25 MG TAB PO SCH (07:21)
[2018-07-15] MEDS: DULoxetine HCL 30 MG CAPSULE.DR PO SCH (07:21)
[2018-07-15] MEDS: VORTIOXETINE HYDROBROMIDE 10 MG TABLET PO SCH (07:21)
[2018-07-15] MEDS: DULoxetine HCL 60 MG CAPSULE.DR PO SCH (07:21)
[2018-07-15] MEDS: FAMOTIDINE 20 MG TAB PO SCH ×2 (07:21→21:21)
[2018-07-15] MEDS: INSULIN DETEMIR (LEVEMIR) 100 UNIT/ML SYR SQ SCH (07:33)
[2018-07-15 11:51] LABS: Glucose,Whole Blood 144 mg/dL (75-99)
--- NOTE | 2018-07-15 12:16 | P.PN ---
Subjective Progress Note Date: 07/15/18 HISTORY OF PRESENT ILLNESS: 43-year-old male who underwent exploratory laparotomy, right colectomy, and drainage of retroperitoneal abscess secondary to ruptured appendicitis. Patient also s/p drainage of abscess by interventional radiology. Patient seen and examined at the bedside. Patient sitting up in the chair. Patient states his pain is tolerable at this time. Denies nausea or vomiting. Tolerating diet. Drainage bag placed by interventional radiology with a small amount of drainage. KAROLYN drain with serous drainage. Nursing reports approximately 200 mL of drainage. White count today is 15.0. Hemoglobin 8.2. PHYSICAL EXAM: VITAL SIGNS: Reviewed. GENERAL: Well-developed in no acute distress. HEENT: No sclera icterus. Extraocular movements grossly intact. Moist buccal mucosa. Head is atraumatic, normocephalic. ABDOMEN: Obese. Soft. Nondistended. KAROLYN drain intact with serosanguineous drainage. Drainage bag intact. NEUROLOGIC: Alert and oriented. Cranial nerves II through XII grossly intact. ASSESSMENT: 1. S/P exploratory laparotomy, right colectomy, and drainage of retroperitoneal abscess secondary to ruptured appendicitis, pathology positive for adenoca rcinoma 2. Sepsis, present on admission 3. Status post drainage of abdominal abscess with insertion of drainage collection bag PLAN: 1. Continue consistent carb/heart healthy diet 2. Activity as tolerated 3. Pain control 4. Incentive spirometry 5. Monitor WBC. Continue antibiotics per ID. 6. Dr. Stovall recommends repeat CT prior to discharge Nurse practitioner note has been reviewed by physician. Signing provider agrees with the documented findings, assessment, and plan of care. Objective - Vital Signs Vital signs: Vital Signs Temp 97.8 F 07/14/18 21:00 Pulse 78 07/14/18 21:00 Resp 20 07/14/18 21:00 BP 122/72 07/14/18 21:00 Pulse Ox 95 07/14/18 21:00 Intake & Output 07/14/18 07/15/18 07/15/18 18:59 06:59 18:59 Intake Total 200 Output Total 190 250 Balance 10 -250 Intake: Oral 200 Output: Drainage 190 250 Right Abdomen 100 140 Right Lower Abdomen 90 110 Other: Voiding Method Toilet Toilet Urinal Urinal # Voids 3 1 # Bowel Movements 0 1 1 - Labs CBC & Chem 7: 07/15/18 05:20 07/15/18 05:20 Labs: Abnormal Lab Results - Last 24 Hours (Table) 07/14/18 07/15/18 07/15/18 Range/Units 12:01 00:15 05:20 WBC 15.0 H (3.8-10.6) k/uL RBC 3.54 L (4.30-5.90) m/uL Hgb 8.2 L (13.0-17.5) gm/dL Hct 26.7 L (39.0-53.0) % MCV 75.3 L (80.0-100.0) fL MCH 23.2 L (25.0-35.0) pg MCHC 30.9 L (31.0-37.0) g/dL RDW 15.8 H (11.5-15.5) % Plt Count 655 H (150-450) k/uL Neutrophils # 11.4 H (1.3-7.7) k/uL Chloride (98-107) mmol/L BUN (9-20) mg/dL Glucose (74-99) mg/dL POC Glucose (mg/dL) 203 H 193 H (75-99) mg/dL Calcium (8.4-10.2) mg/dL 07/15/18 07/15/18 07/15/18 Range/Units 05:20 06:08 11:40 WBC (3.8-10.6) k/uL RBC (4.30-5.90) m/uL Hgb (13.0-17.5) gm/dL Hct (39.0-53.0) % MCV (80.0-100.0) fL MCH (25.0-35.0) pg MCHC (31.0-37.0) g/dL RDW (11.5-15.5) % Plt Count (150-450) k/uL Neutrophils # (1.3-7.7) k/uL Chloride 109 H (98-107) mmol/L BUN 8 L (9-20) mg/dL Glucose 150 H (74-99) mg/dL POC Glucose (mg/dL) 171 H 144 H (75-99) mg/dL Calcium 8.1 L (8.4-10.2) mg/dL Microbiology - Last 24 Hours (Table) 07/12/18 11:30 Gram Stain - Preliminary Paracentesis Fluid Body Fluid Culture - Preliminary 07/12/18 11:30 Anaerobic Culture - Preliminary Abdomen
--- NOTE | 2018-07-15 12:57 | XR ---
EXAMINATION TYPE: XR chest 1V portable DATE OF EXAM: 07/15/2018 COMPARISON: 07/07/2018 HISTORY: Chest pain TECHNIQUE: Single frontal view of the chest is obtained. FINDINGS: Patchy density right lower lobe persists. Continued elevation right hemidiaphragm. Correlate for unde rlying atelectasis and/or pneumonia. The cardiac silhouette size is within normal limits. The osseous structures are intact. IMPRESSION: 1. Patchy density right lower lobe persists. Continued elevation right hemidiaphragm. Correlate for underlying atelectasis and/or pneumonia.
[2018-07-15 17:07] LABS: Glucose,Whole Blood 167 mg/dL (75-99)
[2018-07-15] MEDS ORDERED: IPRATROPIUM-ALBUTEROL 3 ML NEB INHALATION PRN (19:22)
[2018-07-15] MEDS: IPRATROPIUM-ALBUTEROL 3 ML NEB INHALATION SCH (20:14)
[2018-07-15] MEDS: DIVALPROEX 250 MG TABLET.DR PO SCH (21:21)
--- NOTE | 2018-07-15 21:24 | PN ---
PROGRESS NOTE DATE OF SERVICE: 07/15/2018 This 43-year-old gentleman who was admitted with exploratory laparotomy, right colectomy and pathology of post adenocarcinoma. The patient also had sepsis present on admission. The patient also had features of ruptured appendix, intraabdominal abscess also. The patient on broad spectrum IV antibiotics. Patient being closely monitored. Drains are still present. The most recent chest x-ray which was done today which was personally reviewed by me showed some atelectasis and patchy density in the right lower lobe. PAST MEDICAL HISTORY: Reviewed. REVIEW OF SYSTEMS: CARDIOVASCULAR: No angina or palpitations. RESPIRATION: As mentioned earlier. GASTROINTESTINAL: As mentioned earlier. : No dysuria. CENTRAL NERVOUS SYSTEM: No numbness or weakness. CURRENT MEDICATIONS: Reviewed and include: 1. Tylenol p.r.n. 2. [place] 5 mg q.4 p.r.n. 3. Tenormin 25 mg p.o. daily. 4. Cepacol 1 application daily. 5. Cymbalta 30 mg p.o. daily. 6. Cymbalta 60 mg p.o. daily. 7. Pepcid 20 mg p.o. b.i.d. 8. Dilaudid 1 mg q.3 p.r.n. 9. NovoLog scale. 10.Levemir 20 units subcu daily. 12.Ativan 0.5 b.i.d. 13.Reglan. 14.Replacement protocol. 15.Narcan. 16.Zofran. 17.Zosyn. 18.IV vancomycin. PHYSICAL EXAM: Patient is alert, oriented x3. Pulse 85, blood pressure 101/64, respiratory rate 18, temperature 97.2, pulse ox 98% on room air. HEENT: Conjunctivae normal. NECK: No jugular venous distention. CARDIOVASCULAR: S1, S2 muffled. Respirations: Breath sounds diminished in the bases. Bilateral scattered rhonchi and crackles. ABDOMEN: Soft, nontender. No mass palpable. LEGS are no edema. No swelling. CENTRAL NERVOUS SYSTEM: Higher functions as mentioned earlier. Moves all four limbs. No focal deficits. Lymphatics: No lymph nodes palpable in the neck, axillae or groin. SKIN: No ulcer, rash or bleeding. JOINTS: No active deforming arthropathy. LABORATORY DATA: WBC 15, hemoglobin is 8.2, platelets 65. Sodium 140, potassium 3.8. Accu-Cheks are noted. ASSESSMENT: 1. Acute rupture of appendix with intraabdominal abscess and peritonitis with severe sepsis present on admission with Bacteroides fragilis, sepsis. 2. Status post exploratory laparotomy and right colectomy with post adenocarcinoma. 3. Diabetes mellitus type 2. 4. Increased WBC. 5. Anemia, microcytic. 6. Increased random blood sugar. 7. Possible pneumonia versus atelectasis. 8. Diabetes. 9. Hypertension. 10.Seizure disorder. 11.Supraventricular ventricular. 12.seizure disorder. 13.History of bipolar depression. 14.History of schizophrenia. 15.Morbid obesity with a body mass index of 42.5. 16.History of nicotine dependence. 17.History of THC. 18.Gait dysfunction. 19.FULL CODE. RECOMMENDATIONS AND DISCUSSION: In this 43-year-old gentleman who presented with multiple complex medical issues, we will continue the current medications, continue symptomatic treatment, I would recommend continue to monitor blood sugars closely. Otherwise, also recommend a course of bronchodilators, broad-spectrum IV antibiotics. Cultures are showing anaerobic organisms and as well as E coli from the wound and Bacteroides fragilis from the culture. I recommend bronchodilators. PT/OT evaluation, possible ECF rehab. Ensure oxygenation. DVT prophylaxis. Guarded prognosis. Further recommendations to follow. MMODL / IJN: [id number] / MTDOlivia
[2018-07-16 00:08] LABS: Glucose,Whole Blood 132 mg/dL (75-99)
[2018-07-16] MEDS: INSULIN ASPART (NovoLOG) 100 UNIT/ML VIAL SQ SCH ×4 (00:09→19:00)
[2018-07-16] MEDS: HYDROcodone/APAP 5-325MG 1 EACH TAB PO PRN ×2 (02:26→21:19)
[2018-07-16 06:08] LABS: Glucose,Whole Blood 138 mg/dL (75-99)
[2018-07-16] MEDS: IOPAMIDOL-300 CONTRAST 30 ML VIAL (ORAL USE) PO PRN ×2 (06:24→07:52)
[2018-07-16] MEDS: VANCOMYCIN 1,750 MG in SODIUM CHLORIDE 0.9% 500 ML 500 ML IVPB SCH (06:25)
[2018-07-16] MEDS: IPRATROPIUM-ALBUTEROL 3 ML NEB INHALATION SCH ×3 (07:38→20:38)
--- NOTE | 2018-07-16 10:11 | CT ---
EXAMINATION TYPE: CT abdomen pelvis w con DATE OF EXAM: 07/16/2018 COMPARISON: 07/11/2018 HISTORY: Abdominal abscess CT DLP: 5152.5 mGycm Automated exposure control for dose reduction was used. CONTRAST: CT scan of the abdomen pelvis is performed with IV Contrast, patient injected with 100 mL of Isovue 3 00. FINDINGS- LUNG BASES-there remains a right-sided consolidation. Tiny consolidation.. LIVER/GB-liver heterogeneous in appearance. Liver appears to be enlarged measuring 27 cm. Correlate w ith liver function studies. Severe artifact limits its assessment on today's exam. Contrast exam barbara mmended. No obvious gallstones. PANCREAS- No gross abnormality is seen. SPLEEN- No gross abnormality is seen. ADRENALS- No gross abnormality is seen. KIDNEYS/BLADDER- no hydronephrosis nephrolithiasis or renal mass. BOWEL-small hiatal hernia. Bowel gas pattern nonspecific.. LYMPH NODES-periaortic shotty adenopathy is stable.. OSSEOUS STRUCTURES-arthropathy of the hips noted.. OTHER- drainage catheter seen in the subhepatic space. There is marked interval improvement in the s ize of the abscess cavity with predominantly air noted. There is a single small additional pocket not ed along the anterior abdomen just beneath the rectus muscle measuring 3.5 x 1.5 cm which may communi lynsey area that has been drained as it appears slightly smaller in size. There is residual fluid along the inferior margin of the liver which measures approximately 4 cm. Additional surgical drain and shawna are noted anteriorly. Only a trace amount of fluid is seen in t he pelvis. There does appear to be diffuse subcutaneous edema. Small amount of perihepatic ascites persists along the upper margin of the liver. IMPRESSION- 1. Interval marked improvement in the amount of abscess involving the right perihepatic region as dis cussed above. 2. Diffuse subcutaneous edema correlate for anasarca or cellulitis. 3. Persistent right-sided consolidation and pleural effusion with tiny left pleural effusion. 4. The liver has a heterogeneous pattern which is nonspecific. Some of this may be artifactual. There appears to be extensive artifact on today's exam. Follow-up contrast exam recommended.
[2018-07-16] MEDS: PIPERACILLIN-TAZOBACTAM 3.375 GM in SODIUM CHLORIDE 0.9% 100 ML IVPB SCH (10:13)
[2018-07-16] MEDS: DULoxetine HCL 60 MG CAPSULE.DR PO SCH (10:14)
[2018-07-16] MEDS: ATENOLOL 25 MG TAB PO SCH (10:14)
[2018-07-16] MEDS: FAMOTIDINE 20 MG TAB PO SCH ×2 (10:14→21:20)
[2018-07-16] MEDS: DULoxetine HCL 30 MG CAPSULE.DR PO SCH (10:14)
[2018-07-16] MEDS: INSULIN DETEMIR (LEVEMIR) 100 UNIT/ML SYR SQ SCH (10:15)
[2018-07-16] MEDS: VORTIOXETINE HYDROBROMIDE 10 MG TABLET PO SCH (10:15)
[2018-07-16] MEDS: FOLIC ACID 1 MG TAB PO SCH (11:17)
[2018-07-16] MEDS: MULTIVITAMINS, THERA 1 EACH TAB PO SCH (11:17)
[2018-07-16] MEDS: THIAMINE 100 MG TAB PO SCH (11:17)
[2018-07-16 11:45] LABS: Glucose,Whole Blood 147 mg/dL (75-99)
[2018-07-16 12:01] LABS: Anion Gap 7 mmol/L; Blood Urea Nitrogen 7 mg/dL (9-20); Carbon Dioxide 24 mmol/L (22-30); Chloride 108 mmol/L (98-107); Glucose 157 mg/dL (74-99); Potassium 4.1 mmol/L (3.5-5.1); Sodium 139 mmol/L (137-145)
[2018-07-16 12:30] LABS: Basophils # (A) 0.1 k/uL (0-0.2); Basophils % (A) 1 %; Eosinophils # (A) 0.3 k/uL (0-0.7); Eosinophils % (A) 3 %; HCT 25.5 % (39.0-53.0); HGB 8.1 gm/dL (13.0-17.5); Hypochromasia Moderate; Lymphocytes # (A) 2.1 k/uL (1.0-4.8); Lymphocytes % (A) 17 %; MCH 24.3 pg (25.0-35.0); MCHC 31.6 g/dL (31.0-37.0); MCV 77.2 fL (80.0-100.0); Mean Platelet Volume 7.4; Monocytes # (A) 0.8 k/uL (0-1.0); Monocytes % (A) 6 %; Neutrophils % (A) 72 %; Platelet Count 711 k/uL (150-450); RBC 3.31 m/uL (4.30-5.90); RDW 15.5 % (11.5-15.5); WBC 12.5 k/uL (3.8-10.6)
[2018-07-16] MEDS ORDERED: ERTAPENEM 1 GM in SODIUM CHLORIDE 0.9% 50 ML IVPB STA (13:51)
--- NOTE | 2018-07-16 13:58 | P.PN ---
Subjective Progress Note Date: 07/16/18 HISTORY OF PRESENT ILLNESS: 43-year-old male who underwent exploratory laparotomy, right colectomy, and drainage of retroperitoneal abscess secondary to ruptured appendicitis. Patient also s/p drainage of abscess by interventional radiology. Patient seen and examined at the bedside. Patient sitting up in the chair. Patient states his pain is tolerable at this time. Denies nausea or vomiting. Tolerating diet. Drainage bag placed by interventional radiology with a small amount of light brown drainage. KAROLYN drain with serous drainage. WBC 12.5 PHYSICAL EXAM: VITAL SIGNS: Reviewed. GENERAL: Well-developed in no acute distress. HEENT: No sclera icterus. Extraocular movements grossly intact. Moist buccal mucosa. Head is atraumatic, normocephalic. ABDOMEN: Obese. Soft. Nondistended. KAROLYN drain intact with serous drainage. Drainage bag intact. NEUROLOGIC: Alert and oriented. Cranial nerves II through XII grossly intact. ASSESSMENT: 1. S/P exploratory laparotomy, right colectomy, and drainage of retroperitoneal abscess secondary to ruptured appendicitis, pathology positive for adenocarcinoma 2. Sepsis, present on admission 3. Status post drainage of abdominal abscess with insertion of drainage collection bag PLAN: Await final antibiotic recommendations from ID. Anticipate discharge home tomorrow. Nurse practitioner note has been reviewed by physician. Signing provider agrees with the documented findings, assessment, and plan of care. Objective - Vital Signs Vital signs: Vital Signs Temp 97.6 F 07/16/18 13:33 Pulse 70 07/16/18 13:33 Resp 17 07/16/18 13:33 BP 119/76 07/16/18 13:33 Pulse Ox 97 07/16/18 13:33 Intake & Output 07/15/18 07/16/18 07/16/18 18:59 06:59 18:59 Intake Total 600 Output Total 190 80 Balance 410 -80 Intake: Oral 600 Output: Drainage 190 80 Right Abdomen 120 80 Right Lower Abdomen 70 Other: Voiding Method Toilet Urinal # Voids 1 1 # Bowel Movements 1 - Labs CBC & Chem 7: 07/16/18 11:17 07/16/18 11:17 Labs: Abnormal Lab Results - Last 24 Hours (Table) 07/15/18 07/16/18 07/16/18 Range/Units 17:04 00:07 06:07 WBC (3.8-10.6) k/uL RBC (4.30-5.90) m/uL Hgb (13.0-17.5) gm/dL Hct (39.0-53.0) % MCV (80.0-100.0) fL MCH (25.0-35.0) pg Plt Count (150-450) k/uL Chloride (98-107) mmol/L BUN (9-20) mg/dL Glucose (74-99) mg/dL POC Glucose (mg/dL) 167 H 132 H 138 H (75-99) mg/dL Calcium (8.4-10.2) mg/dL 07/16/18 07/16/18 07/16/18 Range/Units 11:17 11:17 11:41 WBC 12.5 H (3.8-10.6) k/uL RBC 3.31 L (4.30-5.90) m/uL Hgb 8.1 L (13.0-17.5) gm/dL Hct 25.5 L (39.0-53.0) % MCV 77.2 L (80.0-100.0) fL MCH 24.3 L (25.0-35.0) pg Plt Count 711 H (150-450) k/uL Chloride 108 H (98-107) mmol/L BUN 7 L (9-20) mg/dL Glucose 157 H (74-99) mg/dL POC Glucose (mg/dL) 147 H (75-99) mg/dL Calcium 8.0 L (8.4-10.2) mg/dL Microbiology - Last 24 Hours (Table) 07/12/18 11:30 Gram Stain - Final Paracentesis Fluid Body Fluid Culture - Final 07/05/18 13:31 Fungal Culture - Preliminary Abdomen
[2018-07-16 14:21] LABS: Poikilocytosis (M) Present
[2018-07-16 18:04] LABS: Glucose,Whole Blood 166 mg/dL (75-99)
--- NOTE | 2018-07-16 19:41 | PN ---
PROGRESS NOTE DATE OF SERVICE: 07/16/2018 This 43-year-old gentleman who was admitted with acute ruptured appendix also had intraabdominal abscess. The most recent CT scan is showing some improvement. Dr. Stovall is following the patient. No chest pain. No palpitations. No fever. ECF rehab is planned. On exam, alert and oriented x3. Pulse 70, blood pressure 119/76, respiration 17, temperature 97.6, pulse ox 97% on room air. HEENT: Conjunctivae normal. NECK: No jugular venous distention. CARDIOVASCULAR SYSTEM: S1, S2 muffled. RESPIRATORY SYSTEM: Breath sounds diminished at the bases. A few scattered rhonchi and crackles. ABDOMEN: Soft, non-tender. NERVOUS SYSTEM: No focal deficit. LABS: WBC 12.5, hemoglobin 8.1, sodium 139, potassium 4.1. ASSESSMENT: 1. Acute rupture of appendix with intraabdominal abscess with peritonitis with severe sepsis, present on admission, with Bacteroides fragilis sepsis. 2. Status post exploratory laparotomy and right colectomy with history of adenocarcinoma. 3. Diabetes mellitus, type 2. 4. Increased white count. 5. Anemia, microcytic. 6. Increased random blood sugar. 7. Possible pneumonia versus atelectasis. 8. Diabetes mellitus, type 2. 9. Hypertension. 10.Seizure disorder. 11.Supraventricular tachycardia. 12.History of bipolar depression. 13.History of schizophrenia. 14.History of morbid obesity with body mass index of 42.5. 15.History of nicotine dependence. 16.History of tetrahydrocannabinol. 17.Gait dysfunction. 18.FULL CODE. RECOMMENDATIONS AND DISCUSSION: I recommend to continue current management, continue symptomatic treatment. Most recent cultures are negative at this time. Recommend to continue the current medications. Resume the home medications, bronchodilators. PT/OT evaluation. Monitor blood sugars closely. Rest of the recommendations per Surgery. Further recommendations to follow. MMODL / IJN: [id number] /
[2018-07-16] MEDS: SODIUM CHLORIDE 0.9% 1,000 ML IV SCH ×2 (21:12→21:20)
[2018-07-16] MEDS: DIVALPROEX 250 MG TABLET.DR PO SCH (21:20)
--- NOTE | 2018-07-16 23:03 | P.PN ---
Subjective Progress Note Date: 07/16/18 This is a 43-year-old male who gives history of having an uncomfortable feeling in his abdomen but no real pain for the past week as well as fever and chills and diarrhea. Pain was in the right middle abdomen. He states he was feeling lightheaded ended up passing out hitting his face on the ground and his son made him come into the hospital for evaluation. Patient was found to have a temperature of 101.6, tachycardia, blood pressure was stable at 139/55, pulse ox 96 on 2 L. White count initially 11.6 and now at 36.8, hemoglobin 9.9, Pletal count 341. Creatinine 1.31 with repeat of 1.5. Magnesium 0.9, CO2 14, lactic acid 9.7. Influenza testing was negative. Total bilirubin 1.5, alkaline phosphatase 365, albumin 2.8. Urinalysis showed some blood and white cells. Blood cultures status received as well as urine culture. CAT scan of the chest abdomen and pelvis showed appendix with rupture. Chest x-ray patchy medial basilar atelectasis and or developing pneumonia. Patient w as given a dose of cefepime and vancomycin, continued on vancomycin and admitted into the intensive care unit. He has been on sodium bicarb drip, Sorensen catheter has been placed. He has not required vasopressors. Surgery is scheduled for today. Patient is a [id number] diabetic and he states his last physical when A1c was 7.2. 07/06/2018 patient is now considerably improved from the last evaluation. He is now been extubated. Sitting upright is history comfortable. Lasix his abdom inal pain is under quite good control. Denies other new acute complaints at this time. 07/07/2018 patient has further improvement. Extubated, comfortable, is having some ice chips and is pleased with that. Abdominal pain is improved. No other acute new complaints. No nausea or emesis positive flatus. 07/08/2018 patient has further improvement. He is ingesting clear liquids looks forward to advancing his diet. Abdominal pain is resolved 07/16/2018 is noted the patient had a worsening of his status and required the percutaneous drainage of the large abscess that had developed intra-abdominally. 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 The patient has had his follow-up computed tomography scan within evidence of significant improvement of the large abscess. Is now in need of direction for the outpatient intravenous antibiotic therapy. The patient was using be placed on oral antibiotic therapy but due to concerns to oral absorption intravenous therapy is being arranged. The patient's pain is improved. He is advancing his diet. Abdominal pain is improved. No fevers or chills. Objective - Vital Signs Vital signs: Vital Signs Temp 97.6 F 07/16/18 13:33 Pulse 70 07/16/18 16:00 Resp 17 07/16/18 16:00 BP 119/76 07/16/18 13:33 Pulse Ox 97 07/16/18 13:33 Intake & Output 07/16/18 07/16/18 07/17/18 06:59 18:59 06:59 Intake Total 840 Output Total 80 4 Balance -80 836 Intake: Oral 840 Output: Drainage 80 Right Abdomen 80 Stool 4 Other: Voiding Method Toilet Urinal # Voids 1 2 # Bowel Movements 2 - Exam Gen: This is a morbidly obese 43-year-old male. He is resting in the ICU bed and appears to be comfortable and in no acute distress. Was extubated later yesterday after his surgical intervention HEENT: Head is atraumatic, normocephalic. Pupils equal, round. Sclerae is anicteric. Conjunctiva pink. Mucous members of the mouth are somewhat dry. Dentition is in very poor order. No thrush noted. There are white patches on the tonsillar area. NECK: Supple. No JVD. No lymphadenopathy. No thyromegaly. LUNGS: Diminished breath sounds. No wheezes or rhonchi. No intercostal retractions. HEART: Regular rate and rhythm. No murmur. ABDOMEN: Soft. Morbidly obese. Bowel sounds are few. No masses. Right sided tenderness. percutaneous drainage bag still has some purulent secretions EXTREMITIES: No pedal edema. No calf tenderness. Dorsalis pedis +2 bilaterally. NEUROLOGICAL: Patient is awake, alert and oriented x3. - Labs CBC & Chem 7: 07/16/18 11:17 07/16/18 11:17 Labs: Abnormal Lab Results - Last 24 Hours (Table) 07/16/18 07/16/18 07/16/18 Range/Units 00:07 06:07 11:17 WBC 12.5 H (3.8-10.6) k/uL RBC 3.31 L (4.30-5.90) m/uL Hgb 8.1 L (13.0-17.5) gm/dL Hct 25.5 L (39.0-53.0) % MCV 77.2 L (80.0-100.0) fL MCH 24.3 L (25.0-35.0) pg Plt Count 711 H (150-450) k/uL Neutrophils # 9.0 H (1.3-7.7) k/uL Chloride (98-107) mmol/L BUN (9-20) mg/dL Glucose (74-99) mg/dL POC Glucose (mg/dL) 132 H 138 H (75-99) mg/dL Calcium (8.4-10.2) mg/dL 07/16/18 07/16/18 07/16/18 Range/Units 11:17 11:41 17:59 WBC (3.8-10.6) k/uL RBC (4.30-5.90) m/uL Hgb (13.0-17.5) gm/dL Hct (39.0-53.0) % MCV (80.0-100.0) fL MCH (25.0-35.0) pg Plt Count (150-450) k/uL Neutrophils # (1.3-7.7) k/uL Chloride 108 H (98-107) mmol/L BUN 7 L (9-20) mg/dL Glucose 157 H (74-99) mg/dL POC Glucose (mg/dL) 147 H 166 H (75-99) mg/dL Calcium 8.0 L (8.4-10.2) mg/dL Microbiology - Last 24 Hours (Table) 07/12/18 11:30 Gram Stain - Final Paracentesis Fluid Body Fluid Culture - Final Laboratory Results WBC 12.5 k/uL (3.8-10.6) H 07/16/18 11:17 RBC 3.31 m/uL (4.30-5.90) L 07/16/18 11:17 Hgb 8.1 gm/dL (13.0-17.5) L 07/16/18 11:17 Hct 25.5 % (39.0-53.0) L 07/16/18 11:17 MCV 77.2 fL (80.0-100.0) L 07/16/18 11:17 MCH 24.3 pg (25.0-35.0) L 07/16/18 11:17 MCHC 31.6 g/dL (31.0-37.0) 07/16/18 11:17 RDW 15.5 % (11.5-15.5) 07/16/18 11:17 Plt Count 711 k/uL (150-450) H 07/16/18 11:17 Neutrophils % 72 % 07/16/18 11:17 Neutrophils % (Manual) 76 % 07/10/18 06:02 Band Neutrophils % 5 % 07/10/18 06:02 Lymphocytes % 17 % 07/16/18 11:17 Lymphocytes % (Manual) 6 % 07/10/18 06:02 Monocytes % 6 % 07/16/18 11:17 Monocytes % (Manual) 7 % 07/10/18 06:02 Eosinophils % 3 % 07/16/18 11:17 Eosinophils % (Manual) 2 % 07/10/18 06:02 Basophils % 1 % 07/16/18 11:17 Metamyelocytes % 4 % 07/10/18 06:02 Myelocytes % 2 % 07/10/18 06:02 Blast Cells % Not Reportable 07/10/18 06:02 Neutrophils # 9.0 k/uL (1.3-7.7) H 07/16/18 11:17 Neutrophils # (Manual) 16.60 k/uL (1.3-7.7) H 07/10/18 06:02 Lymphocytes # 2.1 k/uL (1.0-4.8) 07/16/18 11:17 Lymphocytes # (Manual) 1.23 k/uL (1.0-4.8) 07/10/18 06:02 Monocytes # 0.8 k/uL (0-1.0) 07/16/18 11:17 Monocytes # (Manual) 1.44 k/uL (0-1.0) H 07/10/18 06:02 Eosinophils # 0.3 k/uL (0-0.7) 07/16/18 11:17 Eosinophils # (Manual) 0.41 k/uL (0-0.7) 07/10/18 06:02 Basophils # 0.1 k/uL (0-0.2) 07/16/18 11:17 Metamyelocytes # (Man) 0.82 k/uL (0) H 07/10/18 06:02 Myelocytes # (Manual) 0.41 k/uL (0) H 07/10/18 06:02 Blast Cells # (Man) 0.21 k/uL (0) H 07/10/18 06:02 Nucleated RBCs 0 /100 WBC (0-0) 07/10/18 06:02 Manual Slide Review Performed 07/16/18 11:17 Toxic Granulation Present 07/10/18 06:02 Toxic Vacuolation Present 07/05/18 15:42 Large Platelets Present 07/05/18 15:42 Polychromasia Present 07/10/18 06:02 Hypochromasia Moderate 07/16/18 11:17 Poikilocytosis (manual Present 07/16/18 11:17 Anisocytosis (manual) Present 07/10/18 06:02 Microcytosis Slight 07/15/18 05:20 PT 11.4 sec (9.0-12.0) 07/12/18 09:02 INR 1.1 (<1.2) 07/12/18 09:02 APTT 25.7 sec (22.0-30.0) 07/05/18 05:05 Sample Site rra 07/05/18 15:33 ABG pH 7.41 (7.35-7.45) 07/05/18 15:33 ABG pCO2 40 mmHg (35-45) 07/05/18 15:33 ABG pO2 84 mmHg (83-108) 07/05/18 15:33 ABG HCO3 25 mmol/L (21-25) 07/05/18 15:33 ABG Total CO2 26 mmol/L (19-24) H 07/05/18 15:33 ABG O2 Saturation 96.5 % (94-97) 07/05/18 15:33 ABG Base Excess 0.3 mmol/L 07/05/18 15:33 Jonh Test Yes 07/05/18 15:33 FiO2 50 % 07/05/18 15:33 Sodium 139 mmol/L (137-145) 07/16/18 11:17 Potassium 4.1 mmol/L (3.5-5.1) 07/16/18 11:17 Chloride 108 mmol/L (98-107) H 07/16/18 11:17 Carbon Dioxide 24 mmol/L (22-30) 07/16/18 11:17 Anion Gap 7 mmol/L 07/16/18 11:17 BUN 7 mg/dL (9-20) L 07/16/18 11:17 Creatinine 0.78 mg/dL (0.66-1.25) 07/16/18 11:17 Est GFR (CKD-EPI)AfAm >90 (>60 ml/min/1.73 sqM) 07/16/18 11:17 Est GFR (CKD-EPI)NonAf >90 (>60 ml/min/1.73 sqM) 07/16/18 11:17 Glucose 157 mg/dL (74-99) H 07/16/18 11:17 POC Glucose (mg/dL) 166 mg/dL (75-99) H 07/16/18 17:59 POC Glu Repair Tech ID Itzel Weaver 07/16/18 17:[address] Glu mg/dL 189 07/05/18 05:05 Hemoglobin A1c 8.2 % (4.0-6.0) H 07/05/18 05:05 Lactic Ac Sepsis Rflx Y 07/05/18 08:40 Plasma Lactic Acid Chay 2.9 mmol/L (0.7-2.0) H* 07/05/18 15:42 Calcium 8.0 mg/dL (8.4-10.2) L 07/16/18 11:17 Phosphorus 2.5 mg/dL (2.5-4.5) 07/07/18 05:06 Magnesium 1.6 mg/dL (1.6-2.3) 07/08/18 11:19 Total Bilirubin 1.7 mg/dL (0.2-1.3) H 07/07/18 05:06 AST 28 U/L (17-59) 07/07/18 05:06 ALT 36 U/L (21-72) 07/07/18 05:06 Alkaline Phosphatase 152 U/L (38-126) H 07/07/18 05:06 Troponin I <0.012 ng/mL (0.000-0.034) 07/04/18 16:06 Total Protein 4.7 g/dL (6.3-8.2) L 07/07/18 05:06 Albumin 2.0 g/dL (3.5-5.0) L 07/07/18 05:06 Urine Color Yellow 07/04/18 22:20 Urine Appearance Turbid (Clear) 07/04/18 22:20 Urine pH 5.5 (5.0-8.0) 07/04/18 22:20 Ur Specific [place]kin 1.021 (1.001-1.035) 07/04/18 22:20 Urine Protein 2+ (Negative) H 07/04/18 22:20 Urine Glucose (UA) 2+ (Negative) H 07/04/18 22:20 Urine Ketones Trace (Negative) H 07/04/18 22:20 Urine Blood Moderate (Negative) H 07/04/18 22:20 Urine Nitrite Negative (Negative) 07/04/18 22:20 Urine Bilirubin Negative (Negative) 07/04/18 22:20 Urine Urobilinogen <2.0 mg/dL (<2.0) 07/04/18 22:20 Ur Leukocyte Esterase Trace (Negative) H 07/04/18 22:20 Urine RBC 11 /hpf (0-5) H 07/04/18 22:20 Urine WBC 28 /hpf (0-5) H 07/04/18 22:20 Urine WBC Clumps Many /hpf (None) H 07/04/18 22:20 Ur Squamous Epith Cells 2 /hpf (0-4) 07/04/18 22:20 Urine Bacteria Moderate /hpf (None) H 07/04/18 22:20 Granular Casts 949 /lpf (0) 07/04/18 22:20 Urine Mucus Rare /hpf (None) H 07/04/18 22:20 Fluid Source Abdominal 07/12/18 11:30 Fluid Appearance Cloudy 07/12/18 11:30 Fluid RBC 3400 /uL 07/12/18 11:30 Fluid Nucleated Cells 90402 /uL 07/12/18 11:30 Fluid Polynuclear WBCs 79 % 07/12/18 11:30 Fluid Mononuclear WBCs 21 % 07/12/18 11:30 Body Fluid Glucose Source Paracentesis Fluid 07/12/18 11:30 Fluid Glucose 4 mg/dL 07/12/18 11:30 Body Fluid LDH Source Paracentesis Fluid 07/12/18 11:30 Fluid LDH >4200 U/L 07/12/18 11:30 Body Fluid Amylase Source Paracentesis Fluid 07/12/18 11:30 Fluid Amylase 22 U/L 07/12/18 11:30 Fluid Comment 07/12/18 11:30 Vancomycin Trough 20.2 ug/mL 07/15/18 05:20 Influenza Type A RNA Not Detected (Not Detectd) 07/04/18 16:06 Influenza Type B (PCR) Not Detected (Not Detectd) 07/04/18 16:06 Microbiology 07/12/18 11:30 Paracentesis Fluid Gram Stain - Final 07/12/18 11:30 Paracentesis Fluid Body Fluid Culture - Final 07/05/18 13:31 Abdomen Fungal Culture - Preliminary 07/12/18 11:30 Abdomen Anaerobic Culture - Preliminary 07/05/18 13:31 Abdomen Anaerobic Culture - Final Anaerobic Gram Positive Cocci Anaerobic Gram Positive Cocci#2 Anaerobic Gm Negative Bacilli 07/05/18 00:30 Stool Stool Culture - Final 07/05/18 13:31 Abdomen Gram Stain - Final 07/05/18 13:31 Abdomen Wound Culture - Final Escherichia coli 07/04/18 16:06 Blood Blood Culture Gram Stain - Final 07/04/18 16:06 Blood Blood Culture - Final Bacteroides fragilis 07/04/18 22:20 Urine,Catheterized Urine Culture - Final 07/04/18 16:06 Blood Blood Culture - Final 07/04/18 18:30 Urine,Catheterized Urine Culture - Final Assessment and Plan (1) Intra-abdominal abscess Narrative/Plan: 43-year-old male presents with fever abdominal pain and about of lightheadedness and syncope was brought to hospital with evidence of sepsis. With abdominal pain and abnormality computed tomography scan shows evidence of the free air in the pelvis to go to the operating room for surgical intervention. Antibiotic therapy with Zosyn has been initiated for treatment of intra-abdominal sepsis related to his ruptured appendix. Vancomycin has been initiated and will likely be deescalated depending on culture results. Improvement of his glucose control will be important in helping him in the postoperative timeframe. Cultures will help determine the final course of antibiotic therapy as he improves. Postoperatively ongoing supportive care, initiating nutrition as soon as possib le to allow further improvement of his status. 07/06/2018 the patient now is considerably improved. He has been extubated and has improved respiratory status. His mentation is also doing quite well. The blood cultures are positive for gram-negative bacilli as is the intra- abdominal abscess. Anaerobic pathogens also being seen. Antibiotic therapy with Zosyn continues we'll likely discontinue vancomycin within the next day because cultures become finalized. Follow blood cultures are processing negative so far. Continue supportive care. Nutrition as per the surgical team. 07/07/2018 patient is now feeling somewhat better. He is with controlled abdominal pain. Ice chips and then allowed. No fevers or chills. Cultures do show evidence of E. coli at intra-abdominal site as well as the anaerobic gram- negative bacilli in the blood culture. Continue Zosyn for now. Vancomycin likely discontinue tomorrow as the final cultures become available. 07/08/2018 patient continues to improve. Blood culture was anaerobic bacteria with Bacteroides. Intra-abdominal culture with E. coli and anaerobic gram-negative pathogens. Patient is responding very well to Zosyn at this point in time. Once the patient has regained gastrointestinal function there is a possibility of completing his course of therapy with a combination of Levaquin and Flagyl which could be oral. 07/16/2018 the patient did have a worsening of his status requiring a percutaneous drainage of a large right-sided intra-abdominal abscess that is now much improved. By the recent computed tomography scan. Outpatient intravenous antibiotic therapy is being arranged with ertapenem which is started today. Will ask for PICC line to be placed for his outpatient intravenous antibiotic therapy. We'll need to phone the office in a couple weeks to see how he is doing on this course of antibiotic therapy. The leukocytosis is deftly improving status post drainage of the abscess and clinically the patient is feeling considerably better. He has classic polymicrobial jose and is responding well to antibiotic therapy. Current Visit: Yes Status: Acute Code(s): K65.1 - PERITONEAL ABSCESS SNOMED Code(s): 13395837 (2) Rupture of appendix Current Visit: Yes Status: Acute Code(s): K35.32 - ACUTE APPENDICITIS WITH PERF AND LOC PERITONITIS, W/O ABSCS SNOMED Code(s): 47303427 (3) Syncope Current Visit: No Status: Acute Code(s): R55 - SYNCOPE AND COLLAPSE SNOMED Code(s): 559267877
[2018-07-17 01:19] LABS: Glucose,Whole Blood 102 mg/dL (75-99)
[2018-07-17] MEDS: INSULIN ASPART (NovoLOG) 100 UNIT/ML VIAL SQ SCH ×4 (01:24→13:28)
[2018-07-17] MEDS: VANCOMYCIN 1,750 MG in SODIUM CHLORIDE 0.9% 500 ML 500 ML IVPB SCH (01:27)
[2018-07-17] MEDS: HYDROcodone/APAP 5-325MG 1 EACH TAB PO PRN ×3 (01:52→12:13)
[2018-07-17] MEDS ORDERED: VANCOMYCIN TROUGH DUE 1 EACH MISC MISCELLANE ONE (05:00)
[2018-07-17 05:47] LABS: Glucose,Whole Blood 120 mg/dL (75-99)
[2018-07-17] MEDS: IPRATROPIUM-ALBUTEROL 3 ML NEB INHALATION SCH ×2 (09:15→13:10)
[2018-07-17 09:46] LABS: Anion Gap 5 mmol/L; Blood Urea Nitrogen 7 mg/dL (9-20); Calcium 8.4 mg/dL (8.4-10.2); Carbon Dioxide 25 mmol/L (22-30); Chloride 109 mmol/L (98-107); Glucose 110 mg/dL (74-99); Potassium 3.8 mmol/L (3.5-5.1); Sodium 139 mmol/L (137-145)
[2018-07-17 09:51] LABS: Basophils % (A) 0 %; Eosinophils # (A) 0.3 k/uL (0-0.7); Eosinophils % (A) 3 %; HCT 25.6 % (39.0-53.0); HGB 8.2 gm/dL (13.0-17.5); Hypochromasia Moderate; Lymphocytes % (A) 19 %; MCH 24.7 pg (25.0-35.0); MCV 77.3 fL (80.0-100.0); Mean Platelet Volume 7.2; Monocytes # (A) 0.7 k/uL (0-1.0); Monocytes % (A) 7 %; Neutrophils # (A) 7.6 k/uL (1.3-7.7); Neutrophils % (A) 70 %; Platelet Count 646 k/uL (150-450); RBC 3.31 m/uL (4.30-5.90); RDW 15.4 % (11.5-15.5); WBC 10.8 k/uL (3.8-10.6)
[2018-07-17] MEDS: FOLIC ACID 1 MG TAB PO SCH (09:59)
[2018-07-17] MEDS: ATENOLOL 25 MG TAB PO SCH (09:59)
[2018-07-17] MEDS: VORTIOXETINE HYDROBROMIDE 10 MG TABLET PO SCH (09:59)
[2018-07-17] MEDS: DULoxetine HCL 30 MG CAPSULE.DR PO SCH (09:59)
[2018-07-17] MEDS: DULoxetine HCL 60 MG CAPSULE.DR PO SCH (09:59)
[2018-07-17] MEDS: THIAMINE 100 MG TAB PO SCH (09:59)
[2018-07-17] MEDS: SODIUM CHLORIDE 0.9% 1,000 ML IV SCH (09:59)
[2018-07-17] MEDS: FAMOTIDINE 20 MG TAB PO SCH (09:59)
[2018-07-17] MEDS: MULTIVITAMINS, THERA 1 EACH TAB PO SCH (09:59)
[2018-07-17] MEDS: INSULIN DETEMIR (LEVEMIR) 100 UNIT/ML SYR SQ SCH (10:00)
[2018-07-17 12:42] LABS: Glucose,Whole Blood 157 mg/dL (75-99)
--- NOTE | 2018-07-17 12:43 | US ---
EXAMINATION TYPE: US venous doppler duplex LE BI DATE OF EXAM: 07/17/2018 12:33 PM COMPARISON: NONE CLINICAL HISTORY: DVT. Recent surgery. Difficult exam due to patient body habitus SIDE PERFORMED: Bilateral TECHNIQUE: The lower extremity deep venous system is examined utilizing real time linear array sonog cammy with graded compression, doppler sonography and color-flow sonography. VESSELS IMAGED: External Iliac Vein (EIV) Common Femoral Vein Deep Femoral Vein Greater Saphenous Vein * Femoral Vein Popliteal Vein Small Saphenous Vein * Proximal Calf Veins (* superficial vessels) Right Leg: Appears negative for DVT as visualized Left Leg: Appears negative for DVT as visualized Grayscale, color doppler, spectral doppler imaging performed of the deep veins of the bilateral lower extremities. There is normal flow, compressibility, vascular waveforms. IMPRESSION: No ultrasound evidence for acute DVT in either lower extremity.
[2018-07-17 13:24] VITALS: BP 115/67; PULSE 78; RESP 20; TEMP 97.7
--- NOTE | 2018-07-17 15:05 | P.DS ---
Providers Date of admission: 07/04/18 17:59 Expected date of discharge: 07/17/18 Attending physician: Mayank Stovall Consults: 07/04/18 17:59 Consult Physician Routine Consulting Provider: Catrachita Land Consult Reason/Comments: sepsis Do you want consulting provider notified?: Already Contacted 07/04/18 18:23 Consult Physician Routine Consulting Provider: Jimmy Grove Consult Reason/Comments: medical consultation Do you want consulting provider notified?: Yes 07/04/18 21:04 Consult Physician Routine Consulting Provider: David Esparza Consult Reason/Comments: rutured appendix Do you want consulting provider notified?: Yes 07/11/18 08:49 Consult Physician Routine Consulting Provider: Daniele Whalen Consult Reason/Comments: adenocarcinoma Do you want consulting provider notified?: Yes Primary care physician: [facility] Hospital Course: 43-year-old male who presented to the emergency room due to abdominal pain. Patient was found to have a ruptured appendix. Patient underwent exploratory laparotomy, right colectomy, and drainage of retroperitoneal abscess secondary to ruptured appendicitis. Patient also s/p drainage of abscess by interventional radiology. Pathology report positive for adenocarcinoma. Patient was evaluated by oncology and recommended to follow up on an outpatient basis. Patient has been followed by infectious disease during hospitalization who recommends Invanz 1 g daily at the time of discharge for 14 days. The patient is stable for discharge home today. Please see EMR for further hospital course details. Discharge diagnosis: 1. S/P exploratory laparotomy, right colectomy, and drainage of retroperitoneal abscess secondary to ruptured appendicitis, pathology positive for adenocarcinoma 2. Sepsis, present on admission 3. Status post drainage of abdominal abscess with insertion of drainage collection bag Nurse practitioner note has been reviewed by physician. Signing provider agrees with the documented findings, assessment, and plan of care. Patient Condition at Discharge: Stable Plan - Discharge Summary Discharge Rx Participant: Yes New Discharge Prescriptions: New Ertapenem [INVanz] 1 gm IVPB Q24H #14 bag Hydrocodone/Acetaminophen [Irvine 5-325] 1 tab PO Q4HR PRN 3 Days #18 tab PRN Reason: Pain No Action Insulin Glargine [Lantus] 50 units SQ HS Atorvastatin Calcium [Lipitor] 20 mg PO HS DULoxetine HCL [Cymbalta] 60 mg PO DAILY metFORMIN HCL [Glucophage] 850 mg PO TID Vortioxetine Hydrobromide [Trintellix] 10 mg PO DAILY DULoxetine HCL [Cymbalta] 30 mg PO DAILY Divalproex [Depakote] 250 mg PO HS Lisinopril [Zestril] 10 mg PO DAILY Atenolol 25 mg PO DAILY Ferrous Sulfate [Iron (65 MG Elemental)] 1 tab PO DAILY risperiDONE MICROSPHERES [RisperDAL CONSTA] 1 INJ DIRECTED Discharge Medication List Insulin Glargine [Lantus] 50 units SQ HS 03/23/15 [History] Atorvastatin Calcium [Lipitor] 20 mg PO HS 09/14/16 [History] DULoxetine HCL [Cymbalta] 60 mg PO DAILY 09/14/16 [History] metFORMIN HCL [Glucophage] 850 mg PO TID 09/14/16 [History] Atenolol 25 mg PO DAILY 07/04/18 [History] DULoxetine HCL [Cymbalta] 30 mg PO DAILY 07/04/18 [History] Divalproex [Depakote] 250 mg PO HS 07/04/18 [History] Lisinopril [Zestril] 10 mg PO DAILY 07/04/18 [History] Vortioxetine Hydrobromide [Trintellix] 10 mg PO DAILY 07/04/18 [History] Ferrous Sulfate [Iron (65 MG Elemental)] 1 tab PO DAILY 07/14/18 [History] risperiDONE MICROSPHERES [RisperDAL CONSTA] 1 INJ DIRECTED 07/14/18 [History] Ertapenem [INVanz] 1 gm IVPB Q24H #14 bag 07/16/18 [Rx] Hydrocodone/Acetaminophen [Irvine 5-325] 1 tab PO Q4HR PRN 3 Days #18 tab 07/17/18 [Rx] Follow up Appointment(s)/Referral(s): Daniele Whalen MD [STAFF PHYSICIAN] - 07/20/18 12:30 pm [facility], [NON-STAFF] - [facility] [Primary Care Provider] - 1-2 days [facility], [REFERRING] - Mayank Stovall MD [STAFF PHYSICIAN] - 07/26/18 12:40 pm Ambulatory/Diagnostic Orders: Basic Metabolic Panel [LAB.AMB] Location: None Selected Complete Blood Count w/diff [LAB.AMB] Location: None Selected Activity/Diet/Wound Care/Special Instructions: outpatient PET scan with Dr Koby Rodriguez D/C Rx Keep a record of drainage from [facility] and drainage bag and bring with you to follow up appointment with Dr. Stovall No driving while taking [place] No lifting over 10 pounds You may shower. No soaking or tub baths Very light activity until you are reevaluated at your follow up appointment with your surgeon
[2018-07-17] MEDS ORDERED: ERTAPENEM 1 GM in SODIUM CHLORIDE 0.9% 50 ML IVPB ONE (16:00)
--- NOTE | 2018-07-17 20:42 | PN ---
PROGRESS NOTE DATE OF SERVICE: 07/17/2018 This 43-year-old gentleman admitted with acute ruptured appendix and and multiple medical issues. The patient improved significantly. Patient is slated to go to rehab today. No chest pain. No palpitations. No fever. The patient has some bilateral leg edema also. PAST MEDICAL HISTORY: Reviewed. REVIEW OF SYSTEMS: Cardio system: No angina or palpitations. RESPIRATORY: As mentioned earlier. GASTROINTESTINAL: As mentioned earlier. no dysuria., CENTRAL NERVOUS SYSTEM: No numbness or weakness. CURRENT MEDICATIONS ARE: Tylenol, [place], DuoNeb, Cepacol, Cymbalta, Ertapenem, Dilaudid, NovoLog and Humulin. PHYSICAL EXAM: Patient is alert, oriented x3, pulse 89, blood pressure 130/77, respiration 16, temp 98.4, pulse ox 98% on room air. HEENT: Conjunctivae normal. NECK: No jugular venous distention. CARDIOVASCULAR: S1, S2. RESPIRATORY: Breath sounds diminished in the bases. Bilateral scattered rhonchi and crackles. ABDOMEN: Soft, nontender. Legs are no edema. No swelling. Central nervous system: No focal deficits. LAB STUDIES: At this time shows WBC 10.2, hemoglobin is 8.2, sodium 130, potassium 3.8. ASSESSMENT: 1. Acute rupture of appendix with intraabdominal abscess with peritonitis with severe sepsis, present on admission with a Bacteroides fragilis in the sepsis. 2. Status post exploratory laparotomy and right colectomy with history of adenocarcinoma. 3. Diabetes type 2. 4. Increased WBC. 5. Anemia, normocytic. 6. Increased random blood sugar. 7. Possible pneumonia versus atelectasis. 8. Diabetes type 2. 9. Hypertension. 10.Seizure disorder. 11.Supraventricular tachycardia. 12.History of bipolar depression. 13.History of schizophrenia. 14.Morbid obesity with body mass index of 42.5. 15.History of nicotine dependent. 16.History of THC. 17.Gait dysfunction. 18.FULL CODE. RECOMMENDATIONS AND DISCUSSION: I recommend to continue current medications, continue with monitoring, symptomatic treatment. Otherwise, at this time, I recommend continue with the current medications, continue symptomatic treatment and I would also recommend close follow up with primary physician. Otherwise, ultrasound of the legs negative for DVT. Further recommendations to follow. MMODL / IJN: [id number] / MTDD
== END 2018-07-17 17:15 | disposition home health service (06) | DRG 853 ==
LOC: EC 15:39 → 2SICU 17:59 → 4MS4W 07-09 20:13
PROVIDERS: ADMIT Surgery; ATTEND Surgery
PROC: 05HY33Z Insertion of Infusion Device into Upper Vein, Percutaneous Approach (ICD-10-PCS; 2018-07-04)
PROC: 0DTF0ZZ Resection of Right Large Intestine, Open Approach (ICD-10-PCS; principal; 2018-07-05 12:30)
PROC: 05HY33Z Insertion of Infusion Device into Upper Vein, Percutaneous Approach (ICD-10-PCS; 2018-07-16)
DX: A41.4 Sepsis due to anaerobes (principal); J18.9 Pneumonia, unspecified organism; K35.33 Acute appendicitis with perforation, localized peritonitis, and gangrene, with abscess; N17.0 Acute kidney failure with tubular necrosis; R65.21 Severe sepsis with septic shock; C18.9 Malignant neoplasm of colon, unspecified; C77.9 Secondary and unspecified malignant neoplasm of lymph node, unspecified; E87.2 Acidosis; F31.30 Bipolar disorder, current episode depressed, mild or moderate severity, unspecified; J98.11 Atelectasis; Z68.41 Body mass index [BMI] 40.0-44.9, adult; E11.65 Type 2 diabetes mellitus with hyperglycemia; E66.01 Morbid (severe) obesity due to excess calories; F20.9 Schizophrenia, unspecified; B96.20 Unspecified Escherichia coli [E. coli] as the cause of diseases classified elsewhere; D50.9 Iron deficiency anemia, unspecified; E78.5 Hyperlipidemia, unspecified; E87.6 Hypokalemia; G40.909 Epilepsy, unspecified, not intractable, without status epilepticus; G47.30 Sleep apnea, unspecified; I10 Essential (primary) hypertension; R26.9 Unspecified abnormalities of gait and mobility; R55 Syncope and collapse; Z79.4 Long term (current) use of insulin; Z79.899 Other long term (current) drug therapy; Z88.8 Allergy status to other drugs, medicaments and biological substances; Z91.013 Allergy to seafood; Z87.891 Personal history of nicotine dependence; Z83.3 Family history of diabetes mellitus; Z82.49 Family history of ischemic heart disease and other diseases of the circulatory system; Z80.0 Family history of malignant neoplasm of digestive organs; W19.XXXA Unspecified fall, initial encounter; Y92.002 Bathroom of unspecified non-institutional (private) residence as the place of occurrence of the external cause
CPT/HCPCS: 36410; 36415; 36556; 36600; 71045; 71250; 74176; 74177; 75989; 76937; 80048; 80053; 80202; 81001; 82150; 82805; 82945; 83036; 83605; 83615; 83735; 84100; 84132; 84484; 85025; 85027; 85610; 85730; 87040; 87045; 87046; 87070; 87075; 87077; 87086; 87102; 87186; 87205; 87502; 88309; 89050; 93970; 94002; 94640; 96361; 96365; 96375; 99291

== ENCOUNTER → 2018-08-09 | Outpatient (CLI) | payer MEDICARE, OTHER ==
--- NOTE | 2018-08-09 20:08 | PE ---
EXAMINATION TYPE: PET CT fusion skull to thigh DATE OF EXAM: 08/09/2018 COMPARISON: CT abdomen pelvis July 16, 2018. Whole body CT July 04, 2018. HISTORY: Colorectal cancer , subsequent study per order. History of right-sided hemicolectomy conta ining adenocarcinoma July 05, 2018. TECHNIQUE: Following the intravenous administration of 14.659 mCi of F-18 FDG, whole body images are performed from the skull base to the midthigh. Images are reviewed on the computer in the coronal, axial, and sagittal planes. Reconstructed rotating images are created on independent workstation and reviewed on the computer. A noncontrast CT is performed in conjunction with the PET scan. SCAN: Subsequent Scan FINDINGS: SKULL BASE AND NECK: There are some suspicious left supraclavicular lymph nodes, for reference large st axial image 57 measures 1.2 x 0.9 cm with max SUV of 2.06. There is more prominent hypermetabolic uptake in smaller lymph node inferior to this axial image 63 with max SUV of 3.25. Max SUV is 3.39 at level of left thyroid lymph node axial image 69 measuring approximately 9 x 9 mm. CHEST, MEDIASTINUM, AND HILAR REGION: No areas of suspicious hypermetabolic uptake are present. ABDOMEN AND PELVIS: There are surgical changes from right-sided hemicolectomy. There is persistent pe rcutaneous right-sided drainage catheter terminating in the right lower quadrant. Mild uptake through out bowel loops and bladder is present. No suspicious hypermetabolic uptake is identified. OSSEOUS STRUCTURES: No areas of suspicious hypermetabolic uptake. OTHER CT: Exam noted suboptimal secondary to patient's large body habitus. There is mild to moderate coronary artery calcification which is noted marked underlying coronary art antelmo disease. There is evidence of recent surgery with overlying anterior abdominal wall surgical shawna as well a s vertical scar with some focal fluid likely reflecting resolving seroma. Uterus is surgically absent . IMPRESSION: Slightly enlarged left supraclavicular lymph nodes with mild hypermetabolic uptake are wood spicious for metastatic malignancy.
== END ==
LOC: RADPETMAIN 17:44
PROVIDERS: ATTEND Internal Medicine Hematology & Oncology
DX: C18.7 Malignant neoplasm of sigmoid colon (principal); R59.0 Localized enlarged lymph nodes; R93.0 Abnormal findings on diagnostic imaging of skull and head, not elsewhere classified
CPT/HCPCS: 78815; A9552

== ENCOUNTER 2018-08-21 07:03 | Day surgery (SDC) | payer MEDICARE, OTHER ==
[2018-08-19 13:19] VITALS: BMI 39.3
[~2018-08-21 07:03] MED LIST: DEXAMETHASONE SOD PHOSPHATE 10 MG/ML 1 ML VIAL IV ONE; HEPARIN SODIUM,PORCINE 5,000 UNIT/ML 1 ML VIAL SQ ONE; HYDROmorphone 0.5 MG/0.5 ML SYRINGE IVP PRN; LIDOCAINE 1% 20 ML VIAL (10MG/ML) FOR IV START INTRADERMA PRN; MIDAZOLAM 2 MG/2 ML VIAL IV PRN; ONDANSETRON 4 MG/2 ML VIAL IVP ONE; Pre Op ABX Message 1 EACH MISC MISCELLANE ONE; SCOPOLAMINE 1.5MG/72HR PATCH TRANSDERM ONE
[2018-08-21] MEDS: LACTATED RINGERS 1,000 ML IV SCH ×2 (07:40→09:09)
--- NOTE | 2018-08-21 07:45 | P.GSHP ---
History of Present Illness H&P Date: 08/21/18 Chief Complaint: Left cervical lymphadenopathy This a 43-year-old male who's recent diagnosed with right colon cancer. Patient was found have left cervical lymphadenopathy. He presents today for left cervical lymph node biopsy. Patient aware the risks of surgery including paresthesia numbness and motor weakness. Past Medical History Past Medical History: Cancer, Diabetes Mellitus, Hyperlipidemia, Hypertension, Seizure Disorder, Supraventricular Tachycardia (SVT) Additional Past Medical History / Comment(s): last seizure 2.5 yrs ago, colon cancer currently, dizzy spells from "inner ear problem" History of Any Multi-Drug Resistant Organisms: None Reported Past Surgical History: Appendectomy, Hernia Repair, Orthopedic Surgery, Tonsillectomy Additional Past Surgical History / Comment(s): right knee arthroscopy, upper palate reconstruction for sleep apnea Past Anesthesia/Blood Transfusion Reactions: Motion Sickness Smoking Status: Former smoker - Past Family History Mother Family Medical History: Pulmonary Embolus Additional Family Medical History / Comment(s): CHF Medications and Allergies Home Medications Medication Instructions Recorded Confirmed Type Insulin Glargine [Lantus] 50 units SQ HS 03/23/15 08/21/18 History Atorvastatin Calcium [Lipitor] 20 mg PO HS 09/14/16 08/21/18 History DULoxetine HCL [Cymbalta] 60 mg PO HS 09/14/16 08/21/18 History metFORMIN HCL [Glucophage] 850 mg PO TID-W/MEALS 09/14/16 08/21/18 History Atenolol 25 mg PO DAILY 07/04/18 08/21/18 History DULoxetine HCL [Cymbalta] 30 mg PO HS 07/04/18 08/21/18 History Lisinopril [Zestril] 10 mg PO HS 07/04/18 08/21/18 History Vortioxetine Hydrobromide 10 mg PO HS 07/04/18 08/21/18 History [Trintellix] Ferrous Sulfate [Iron (65 MG 325 mg PO DAILY 07/14/18 08/21/18 History Elemental)] risperiDONE MICROSPHERES 1 dose INJ Q14D 07/14/18 08/21/18 History [RisperDAL CONSTA] Aspirin [Adult Low Dose Aspirin EC] 81 mg PO DAILY 08/13/18 08/21/18 History HYDROcodone/APAP 7.5-325MG [[place] 1 tab PO Q6HR PRN 08/13/18 08/21/18 History 7.5-325] Allergies Allergy/AdvReac Type Severity Reaction Status Date / Time carbamazepine [From Tegretol] Allergy Severe Anaphylaxis Verified 08/21/18 07:22 lithium [[place]] Allergy Severe Anaphylaxis Verified 08/21/18 07:22 shellfish derived Allergy Severe Anaphylaxis Verified 08/21/18 07:22 aspartame Allergy Unknown Verified 08/21/18 07:22 iodine Allergy Unknown Verified 08/21/18 07:22 citalopram hydrobromide AdvReac Intermediate Nausea & Verified 08/21/18 07:22 [From Celexa] Vomiting Surgical - Exam - General well developed, well nourished, no distress - Eyes PERRL - ENT normal pinna - Neck Left cervical lymphadenopathy in the posterior aspect of the neck no masses - Respiratory normal expansion - Cardiovascular Rhythm: regular - Abdomen Incision clean dry intact and healed Abdomen: soft, non tender Assessment and Plan Assessment: Left cervical lymphadenopathy. We'll perform left cervical lymph node biopsy
[2018-08-21 07:46] LABS: Glucose,Whole Blood 118 mg/dL (75-99)
[2018-08-21] MEDS ORDERED: HYDROmorphone (PF) 1 MG/ML ONE (08:04)
[2018-08-21] MEDS ORDERED: MIDAZOLAM 2 MG/2 ML VIAL ONE (08:04)
[2018-08-21] MEDS ORDERED: fentaNYL (PF) 50 MCG/ML 2 ML AMP ONE (08:04)
[2018-08-21] MEDS ORDERED: LIDOCAINE 1% INJ 10MG/ML (20 ML MDV) ONE (08:04)
[2018-08-21] MEDS ORDERED: PROPOFOL 10 MG/ML 20 ML VIAL IV ONE (08:04)
[2018-08-21] MEDS ORDERED: SODIUM CHLORIDE 0.9% 100 ML with ceFAZolin 2,000 MG IV ONE ×2 (08:20)
[2018-08-21] MEDS ORDERED: BUPIVACAIN-EPI 0.5%-1:200,000 30 ML VIAL SQ ONE ×2 (08:24)
[2018-08-21 08:56] VITALS: TEMP 97.1
--- NOTE | 2018-08-21 09:30 | P.OP ---
Date of Procedure: 08/21/18 Preoperative Diagnosis: Left cervical lymphadenopathy Postoperative Diagnosis: Left cervical lymphadenopathy Procedure(s) Performed: Left cervical lymph node biopsy Anesthesia: ANGELICA Surgeon: Mayank Stovall Estimated Blood Loss (ml): 5 Pathology: other (Left cervical lymph node) Condition: stable Disposition: PACU Description of Procedure: Patient's placed on the operative table in supine position. He received general anesthesia. His left neck was prepped and draped usual fashion. The several lymph nodes palpated at the lateral edge of the sternocleidomastoid. A transverse skin incision was made and then using left cautery the subcutaneous tissues and platysma was divided. Then using blunt dissection the lymph node was visualized. The lymph node was bluntly dissected. A little sent to pathology. There is no bleeding seen. The deep layer was closed with 3-0 Douglas ryl. Skin was closed interrupted 3-0 Monocryl suture. Dermabond was applied. Patient top she will was sent to recovery in stable condition.
[2018-08-21 09:35] VITALS: RESP 16
[2018-08-21 09:45] LABS: Glucose,Whole Blood 147 mg/dL (75-99)
[2018-08-21 10:22] VITALS: BP 97/65; PULSE 67
== END 2018-08-21 10:50 | disposition home or self-care (01) ==
LOC: OR 07:03
PROVIDERS: ATTEND Surgery
DX: C77.0 Secondary and unspecified malignant neoplasm of lymph nodes of head, face and neck (principal); C18.2 Malignant neoplasm of ascending colon; E11.9 Type 2 diabetes mellitus without complications; E78.5 Hyperlipidemia, unspecified; I10 Essential (primary) hypertension; F42.9 Obsessive-compulsive disorder, unspecified; G40.909 Epilepsy, unspecified, not intractable, without status epilepticus; Z87.891 Personal history of nicotine dependence; Z85.038 Personal history of other malignant neoplasm of large intestine; Z79.82 Long term (current) use of aspirin; Z79.4 Long term (current) use of insulin; Z79.899 Other long term (current) drug therapy; Z82.49 Family history of ischemic heart disease and other diseases of the circulatory system; Z88.8 Allergy status to other drugs, medicaments and biological substances; Z91.013 Allergy to seafood; Z91.048 Other nonmedicinal substance allergy status
CPT/HCPCS: 38510; 88305; 88342; 88341; J2250; J1644; J1100; J2405; J0690; J2001; J3010; J1170 ×2; J2704

== ENCOUNTER → 2018-09-09 | Day surgery (SDC) | payer MEDICARE, OTHER ==
[2018-09-05 10:37] VITALS: BMI 40.0
[~2018-09-09] MED LIST changes: +BUPIVACAIN-EPI 0.25%-1:200,000 30 ML VIAL SQ ONE; +HEPARIN SODIUM,PORCINE 100 UNIT/ML 5 ML VIAL IV ONE; -HYDROmorphone 0.5 MG/0.5 ML SYRINGE IVP PRN; +IOHEXOL 180 MG/ML 1 ML ML MISCELLANE ONE; +KETAMINE 10 MG/ML 20 ML VIAL ONE; +LACTATED RINGERS 1,000 ML IV SCH; +MIDAZOLAM 2 MG/2 ML VIAL ONE; -ONDANSETRON 4 MG/2 ML VIAL IVP ONE; +PROPOFOL 10 MG/ML 20 ML VIAL IV ONE; -SCOPOLAMINE 1.5MG/72HR PATCH TRANSDERM ONE; +fentaNYL (PF) 50 MCG/ML 2 ML AMP IV PRN; +fentaNYL (PF) 50 MCG/ML 2 ML AMP ONE
[2018-09-09 07:10] VITALS: TEMP 97.4
[2018-09-09 07:51] LABS: Glucose,Whole Blood 157 mg/dL (75-99)
--- NOTE | 2018-09-09 08:56 | P.OP ---
Date of Procedure: 09/09/18 Preoperative Diagnosis: Right colon cancer Postoperative Diagnosis: Right colon cancer Procedure(s) Performed: Insertion of right subclavian Port-A-Cath Anesthesia: MAC Surgeon: Mayank Stovall Estimated Blood Loss (ml): 5 Pathology: none sent Condition: stable Disposition: PACU Description of Procedure: PROCEDURE: The patient was placed on the operating table in the supine position. She received MAC anesthetic. The [right] chest was prepped and draped in the usual sterile fashion. The skin underneath the right clavicle was anesthetized with 1% Xylocaine and using Seldinger technique, the right subclavian vein was cannulized. The wire was placed through the needle and positioned under fluoroscopy. Next, the needle was removed and the port site was anesthetized with 1% Xylocaine. Skin was incised with #15 blade and port pocket was made using blunt and sharp dissection. Following this the catheter was attached to the sport and the port was flushed. The port was positioned into the pocket site and was secured with 3-0 Vicryl suture. The catheter was then brought out through the wire site and then the dilator sheath was placed over the wire and the dilator and the wire were removed. The catheter was placed through the sheath and the sheath was removed. The port was flushed with hep-lock solution. Skin was closed with interrupted 3-0 Vicryl sutures. Steri-Strips were applied. The patient tolerated the procedure well. The patient was sent to recovery room for chest x-ray after the procedure.
--- NOTE | 2018-09-09 08:58 | P.GSHP ---
History of Present Illness H&P Date: 09/09/18 Chief Complaint: History of right colon cancer This a 43-year-old male who's recent diagnosed with right colon cancer. Patient is today for Port-A-Cath insertion. Past Medical History Past Medical History: Cancer, Diabetes Mellitus, Hyperlipidemia, Hypertension, Seizure Disorder, Supraventricular Tachycardia (SVT) Additional Past Medical History / Comment(s): Last seizure 2.5 yrs ago, colon cancer. History of Any Multi-Drug Resistant Organisms: None Reported Past Surgical History: Appendectomy, Hernia Repair, Orthopedic Surgery, Tonsillectomy Additional Past Surgical History / Comment(s): Right knee sx, upper palate reconstruction for sleep apnea, R colectomy, Lymph node bx. on 08/21/18. Past Anesthesia/Blood Transfusion Reactions: Motion Sickness Past Psychological History: Bipolar, Depression, Schizophrenia Smoking Status: Former smoker Past Alcohol Use History: None Reported Additional Past Alcohol Use History / Comment(s): Patient was a smoker one pack per day of cigarettes for 5 years, quit in 1992. Past Drug Use History: Marijuana Additional Drug Use History / Comment(s): Occasional Marijuana use, aware not to use 24 hrs prior to procedure. - Past Family History Mother Family Medical History: Pulmonary Embolus Additional Family Medical History / Comment(s): CHF Medications and Allergies Home Medications Medication Instructions Recorded Confirmed Type Insulin Glargine [Lantus] 50 units SQ HS 03/23/15 09/09/18 History Atorvastatin Calcium [Lipitor] 20 mg PO HS 09/14/16 09/05/18 History metFORMIN HCL [Glucophage] 850 mg PO TID-W/MEALS 09/14/16 09/09/18 History Atenolol 25 mg PO QAM 07/04/18 09/09/18 History DULoxetine HCL [Cymbalta] 90 mg PO HS 07/04/18 09/05/18 History Lisinopril [Zestril] 10 mg PO HS 07/04/18 09/05/18 History Vortioxetine Hydrobromide 10 mg PO HS 07/04/18 09/05/18 History [Trintellix] Ferrous Sulfate [Iron (65 MG 325 mg PO DAILY 07/14/18 09/09/18 History Elemental)] risperiDONE MICROSPHERES 1 dose INJ Q14D 07/14/18 09/09/18 History [RisperDAL CONSTA] HYDROcodone/APAP 7.5-325MG [[employer] [place] 1 tab PO Q6HR PRN 08/13/18 09/09/18 History 7.5-325] Docusate [Colace] 100 mg PO BID #20 capsule 08/21/18 09/05/18 Rx Allergies Allergy/AdvReac Type Severity Reaction Status Date / Time carbamazepine [From Tegretol] Allergy Severe Anaphylaxis Verified 09/05/18 10:38 lithium [[place]] Allergy Severe Anaphylaxis Verified 09/05/18 10:38 shellfish derived Allergy Severe Anaphylaxis Verified 09/05/18 10:38 aspartame Allergy Unknown Verified 09/05/18 10:38 citalopram hydrobromide AdvReac Intermediate Nausea & Verified 09/05/18 10:38 [From Celexa] Vomiting Surgical - Exam Vital Signs Temp Pulse Resp BP Pulse Ox 97.4 F L 93 18 132/58 97 09/09/18 07:08 09/09/18 07:08 09/09/18 07:08 09/09/18 07:08 09/09/18 07:08 - General well developed, well nourished - Eyes PERRL - ENT normal pinna - Neck no masses - Respiratory normal expansion - Cardiovascular Rhythm: regular - Abdomen Abdomen: soft, non tender Results - Labs Abnormal Lab Results - Last 24 Hours (Table) 09/09/18 Range/Units 07:24 POC Glucose (mg/dL) 157 H (75-99) mg/dL Assessment and Plan Assessment: Right colon cancer. We'll perform Mediport insertion
[2018-09-09 09:08] VITALS: RESP 18
--- NOTE | 2018-09-09 09:08 | FL ---
EXAMINATION TYPE: FL guided central line placemt HISTORY: Fluoroscopy time Impression: 1. Fluoroscopy support provided to the referring physician of 20 seconds.
[2018-09-09 09:22] VITALS: BP 97/64; PULSE 74
--- NOTE | 2018-09-09 09:22 | XR ---
EXAMINATION TYPE: XR chest 1V portable DATE OF EXAM: 09/09/2018 COMPARISON: 07/15/2018 HISTORY: Line placement TECHNIQUE: Single frontal view of the chest is obtained. FINDINGS: There is no focal air space opacity, pleural effusion, or pneumothorax seen. The cardiac silhouette size is within normal limits. The osseous structures are intact. Right-sided central derick e seen with the tip overlying the SVC. Arthropathy of the shoulders. Heart size prominent but stable. IMPRESSION: Catheter seen with tip overlying the SVC and no sizable pneumothorax.
== END ==
LOC: OR 06:42
PROVIDERS: ATTEND Surgery
DX: C18.2 Malignant neoplasm of ascending colon (principal); E11.9 Type 2 diabetes mellitus without complications; E78.5 Hyperlipidemia, unspecified; F31.9 Bipolar disorder, unspecified; F20.9 Schizophrenia, unspecified; I10 Essential (primary) hypertension; G40.909 Epilepsy, unspecified, not intractable, without status epilepticus; Z90.49 Acquired absence of other specified parts of digestive tract; Z87.891 Personal history of nicotine dependence; Z79.4 Long term (current) use of insulin; Z79.899 Other long term (current) drug therapy; Z88.8 Allergy status to other drugs, medicaments and biological substances; Z91.013 Allergy to seafood
CPT/HCPCS: 77001; 71045; 36561; C1788; J2250; J1644; J1642; J1100; Q9965; J3010; J2704

== ENCOUNTER 2018-09-13 11:27 | Day surgery (SDC) | payer MEDICARE, OTHER ==
[2018-09-12 09:05] VITALS: BMI 40.6
--- NOTE | 2018-09-16 08:57 | IR ---
Fluoroscopic portogram([facility]). HISTORY: Device malfunction. The patient presented to the CVL with a Rosario needle within the port. Preliminary fluoroscopy demonst rated the catheter to be intact. Access could not be obtained therefore injection could not be for med.. IMPRESSION: 1. . See above.
== END 2018-09-13 12:12 | disposition home or self-care (01) ==
LOC: CATHCVL 11:27
PROVIDERS: ATTEND Radiology Diagnostic Radiology
DX: C18.2 Malignant neoplasm of ascending colon (principal); T85.618A Breakdown (mechanical) of other specified internal prosthetic devices, implants and grafts, initial encounter; Z90.49 Acquired absence of other specified parts of digestive tract; Z92.3 Personal history of irradiation; M19.90 Unspecified osteoarthritis, unspecified site; A15.0 Tuberculosis of lung; E11.9 Type 2 diabetes mellitus without complications; I10 Essential (primary) hypertension; E78.00 Pure hypercholesterolemia, unspecified; Z80.7 Family history of other malignant neoplasms of lymphoid, hematopoietic and related tissues; Z87.891 Personal history of nicotine dependence; Z79.4 Long term (current) use of insulin; Z79.899 Other long term (current) drug therapy; Z79.891 Long term (current) use of opiate analgesic; Z88.6 Allergy status to analgesic agent; Z88.8 Allergy status to other drugs, medicaments and biological substances
CPT/HCPCS: 36598

== ENCOUNTER 2018-09-25 10:08 | Day surgery (SDC) | payer MEDICARE, OTHER ==
[2018-09-25 10:28] VITALS: BP 10/75; PULSE 118; RESP 16; TEMP 97.7
[2018-09-25] MEDS ORDERED: IOPAMIDOL-250 50ML BTL IV ONE (11:12)
[2018-09-25] MEDS ORDERED: HEPARIN SODIUM 1,000 UN/ML (10ML VL) ONE (11:19)
--- NOTE | 2018-09-26 11:46 | IR ---
Port-A-Cath check HISTORY: Malfunctioning Port-A-Cath Real-time fluoroscopy shows the Port-A-Cath in place with a Rosario needle accessing the Port-A-Cath, t he distal tip of the catheter is in the subclavian vein region. Gentle hand injection of contrast shira ws filling of the port and the catheter, there is no leak. Contrast material courses along the site o f the Port-A-Cath near the tip. Catheter cannot be aspirated. Catheter was flushed with heparin lock. Patient remained stable. 96 intraoperative images. 0.1 minutes fluoroscopy time. IMPRESSION: Fibrin sheath at the distal tip of the catheter. The distal tip the catheter is luminal n ear the junction of the subclavian vein and innominate vein.
== END 2018-09-25 11:45 | disposition home or self-care (01) ==
LOC: CATHCVL 10:08
PROVIDERS: ATTEND Radiology Diagnostic Radiology
DX: T82.594A Other mechanical complication of infusion catheter, initial encounter (principal); Y71.8 Miscellaneous cardiovascular devices associated with adverse incidents, not elsewhere classified
CPT/HCPCS: 36598

== ENCOUNTER 2018-11-15 13:14 | Day surgery (SDC) | payer MEDICARE, OTHER ==
[2018-11-15 13:43] VITALS: RESP 16; TEMP 98.5
[2018-11-15 14:02] LABS: Glucose,Whole Blood 118 mg/dL (75-99)
--- NOTE | 2018-11-15 16:24 | IR ---
Port-A-Cath check HISTORY: Malfunctioning Port-A-Cath Gentle hand injection of contrast material was performed under fluoroscopic observation. Correlation to prior exam 09/25/2018 There is been some progression of the fibrin sheath and the distal tip of the catheter to more proxim al location. Contrast courses within the right innominate vein and superior vena cava as well as poss ibly soft tissues or collateral vessel. No catheter leak. IMPRESSION: Fibrin sheath has progressed along the venous portion. There is not normal contrast flow from the distal tip of the catheter into the vessel lumen.
[2018-11-15 18:10] VITALS: BP 147/71; PULSE 61
== END 2018-11-15 14:50 | disposition home or self-care (01) ==
LOC: CATHCVL 13:14
PROVIDERS: ATTEND Radiology Diagnostic Radiology
DX: Z45.2 Encounter for adjustment and management of vascular access device (principal); T82.827 Fibrosis due to cardiac prosthetic devices, implants and grafts; Y71.8 Miscellaneous cardiovascular devices associated with adverse incidents, not elsewhere classified; I87.2 Venous insufficiency (chronic) (peripheral)
CPT/HCPCS: 36598

== ENCOUNTER → 2018-11-20 | Outpatient (CLI) | payer MEDICARE, OTHER ==
[2018-11-20 16:07] LABS: African American GFR (CKD) >90 (>60 ml/min/1.73 sqM); Blood Urea Nitrogen 17 mg/dL (9-20)
--- NOTE | 2018-11-20 16:41 | CT ---
EXAMINATION TYPE: CT brain w con DATE OF EXAM: 11/20/2018 COMPARISON: 09/13/2016 HISTORY: dizziness and headaches CT DLP: 1144.7 mGycm Automated exposure control for dose reduction was used. CONTRAST: Performed with IV Contrast, patient injected with 100 mL of Isovue 300. FINDINGS: Ventricles of normal size. There is mild cerebral cortical atrophy. There is no mass effect nor midli ne shift. There is no sign of intracranial hemorrhage. The calvarium is intact. There is mucus retent ion cyst in the right side sphenoid sinus. There is no pathologic enhancement. IMPRESSION: MILD ATROPHY. NO ACUTE INTRACRANIAL ABNORMALITY. NO CHANGE.
--- NOTE | 2018-11-20 16:43 | CT ---
EXAMINATION TYPE: CT cervical spine w con DATE OF EXAM: 11/20/2018 COMPARISON: None HISTORY: dizziness and headaches CT DLP: 949.3 mGycm Automated exposure control for dose reduction was used. CONTRAST: Performed with IV Contrast, patient injected with 100 mL of Isovue 300. FINDINGS: Cervical vertebra have normal alignment. Disc spaces are fairly normal. Posterior elements are intact . Skull base appears intact. Facet joints are within normal limits. There is no evidence of a fractur e. There is no pathologic enhancement. IMPRESSION: NEGATIVE CT SCAN OF THE CERVICAL SPINE. NO FRACTURE.
--- NOTE | 2018-11-20 18:50 | US ---
EXAMINATION TYPE: US thyroid st tissue head/neck DATE OF EXAM: 11/20/2018 COMPARISON: NONE CLINICAL HISTORY: R22.0 SWELLING MASS IN NECK. Dizziness. Edema GLAND SIZE: Right Lobe: 4.8 x 1.7 x 1.9 cm Overall Parenchyma: homogenous Left Lobe: 4.1 x 1.7 x 1.6 cm Overall Parenchyma: homogeneous Isthmus Thickness: cm NODULES RIGHT: # of nodules measured on right: 0 . LEFT: # of nodules measured on left: 0 ISTHMUS: # of nodules measured in the isthmus: 0 Bilateral neck scanned. Multiple hypoechoic areas seen in left neck largest 1.2 x .7 x .7cm. IMPRESSION: No evidence of a thyroid mass. There are left side anterior cervical lymph nodes that measure up to 1 2 x 7 mm.
--- NOTE | 2018-11-20 18:52 | US ---
EXAMINATION TYPE: US venous doppler duplex UE RT DATE OF EXAM: 11/20/2018 COMPARISON: NONE CLINICAL HISTORY: R22.31 SWELLING RT UPPER LIMB. Right arm pain. SIDE PERFORMED: Right Right Arm: Negative for DVT Cephalic not well visualized. IMPRESSION: No evidence of deep venous thrombosis in the right arm.
== END | disposition home or self-care (01) ==
LOC: RADCTMAIN 15:03
PROVIDERS: ATTEND Internal Medicine Hematology & Oncology
DX: Z03.89 Encounter for observation for other suspected diseases and conditions ruled out (principal); C18.2 Malignant neoplasm of ascending colon; G31.9 Degenerative disease of nervous system, unspecified; R22.0 Localized swelling, mass and lump, head; R22.31 Localized swelling, mass and lump, right upper limb; R42 Dizziness and giddiness
CPT/HCPCS: 82565; 84520; 76536; 93971; 72126; 70460; 36415; Q9967

== ENCOUNTER → 2018-11-30 | Outpatient (CLI) | payer MEDICARE, OTHER ==
--- NOTE | 2018-12-02 11:44 | PE ---
EXAMINATION TYPE: PET CT fusion skull to thigh DATE OF EXAM: 11/30/2018 COMPARISON: CT abdomen pelvis 07/16/2018 Prior PET/CT: 08/09/2018 HISTORY: Colon cancer TECHNIQUE: Following the intravenous administration of 9.297 mCi of F-18 FDG, whole body images are performed from the skull base to the midthigh. Images are reviewed on the computer in the coronal, a xial, and sagittal planes. Reconstructed rotating images are created on independent workstation and reviewed on the computer. A localization and attenuation correction CT is performed in conjunction with the PET scan. DLP: 665.81 mGycm SCAN: Subsequent Blood glucose: 133 mg/dL Average Mediastinum SUV: 1.53 Average Liver SUV: 2.91 FINDINGS: NECK: No abnormal uptake THORAX: No abnormal uptake within the thorax. Within the periphery of the right axillary region subcu taneous tissues there is a small focus of radiotracer noted may be infectious etiology with an SUV va lue 1.2. PET image 73 ABDOMEN: No abnormal uptake PELVIS: No abnormal uptake OSSEOUS STRUCTURES: No abnormal uptake LOCALIZATION CT: Ascending thoracic aorta at the level the main pulmonary artery is 3.9 cm patent diogenes n pulmonary artery the bifurcation 3.2 cm. COMPARISON: Previous pleural effusion and ascites has resolved. No obvious abscess remains adjacent t o the liver. IMPRESSION: 1. No suspicious radiotracer uptake to suggest metastatic or recurrent colon cancer.
== END | disposition home or self-care (01) ==
LOC: RADPETMAIN 07:32
PROVIDERS: ATTEND Internal Medicine Hematology & Oncology
DX: C18.2 Malignant neoplasm of ascending colon (principal)
CPT/HCPCS: 78815; A9552

== ENCOUNTER 2018-12-11 11:24 | Day surgery (SDC) | payer MEDICARE, OTHER ==
[2018-12-03 14:53] VITALS: BMI 38.3
[~2018-12-11 11:24] MED LIST changes: -BUPIVACAIN-EPI 0.25%-1:200,000 30 ML VIAL SQ ONE; -DEXAMETHASONE SOD PHOSPHATE 10 MG/ML 1 ML VIAL IV ONE; -HEPARIN SODIUM,PORCINE 100 UNIT/ML 5 ML VIAL IV ONE; -IOHEXOL 180 MG/ML 1 ML ML MISCELLANE ONE; -KETAMINE 10 MG/ML 20 ML VIAL ONE; -LIDOCAINE 1% 20 ML VIAL (10MG/ML) FOR IV START INTRADERMA PRN; -MIDAZOLAM 2 MG/2 ML VIAL IV PRN; -MIDAZOLAM 2 MG/2 ML VIAL ONE; -PROPOFOL 10 MG/ML 20 ML VIAL IV ONE; -fentaNYL (PF) 50 MCG/ML 2 ML AMP IV PRN; -fentaNYL (PF) 50 MCG/ML 2 ML AMP ONE
[2018-12-11 11:59] VITALS: TEMP 98.5
[2018-12-11] MEDS ORDERED: LIDOCAINE 1% 20 ML VIAL (10MG/ML) FOR IV START INTRADERMA ONE (12:15)
[2018-12-11] MEDS ORDERED: ONDANSETRON 4 MG/2 ML VIAL IVP ONE (12:15)
[2018-12-11] MEDS ORDERED: DEXAMETHASONE SOD PHOSPHATE 10 MG/ML 1 ML VIAL IV ONE (12:15)
[2018-12-11 12:20] LABS: Glucose,Whole Blood 108 mg/dL (75-99)
--- NOTE | 2018-12-11 12:35 | P.GSHP ---
History of Present Illness H&P Date: 12/11/18 Chief Complaint: Colon cancer This a 43-year-old male with history of colon cancer. Patient had issues with his Port-A-Cath. There is been some leakage of this chemotherapy agent. Patient presents today for revision of Port-A-Cath. Past Medical History Past Medical History: Cancer, Diabetes Mellitus, Hyperlipidemia, Hypertension, Seizure Disorder, Supraventricular Tachycardia (SVT) Additional Past Medical History / Comment(s): Last seizure 2.5 yrs ago, colon cancer,port a cath rt upper chest, received chemo, last treatment 11/13/18 History of Any Multi-Drug Resistant Organisms: None Reported Past Surgical History: Appendectomy, Bowel Resection, Hernia Repair, Orthopedic Surgery, Tonsillectomy Additional Past Surgical History / Comment(s): rt chest port, Right knee sx, upper palate reconstruction for sleep apnea, R colectomy, Lymph node bx. on 08/21/18. Past Anesthesia/Blood Transfusion Reactions: No Reported Reaction Smoking Status: Former smoker - Past Family History Mother Family Medical History: Congestive Heart Failure (CHF), Pulmonary Embolus Additional Family Medical History / Comment(s): CHF Medications and Allergies Home Medications Medication Instructions Recorded Confirmed Type Insulin Glargine [Lantus] 50 units SQ HS 03/23/15 12/03/18 History Atorvastatin Calcium [Lipitor] 20 mg PO HS 09/14/16 12/03/18 History metFORMIN HCL [Glucophage] 850 mg PO TID-W/MEALS 09/14/16 12/03/18 History Atenolol 25 mg PO QAM 07/04/18 12/03/18 History DULoxetine HCL [Cymbalta] 90 mg PO HS 07/04/18 12/03/18 History Lisinopril [Zestril] 10 mg PO HS 07/04/18 12/03/18 History Vortioxetine Hydrobromide 10 mg PO HS 07/04/18 12/03/18 History [Trintellix] HYDROcodone/APAP 7.5-325MG [[place] 1 tab PO Q6HR PRN 08/13/18 12/03/18 History 7.5-325] Ondansetron [Zofran] 4 mg PO Q8HR PRN 12/03/18 12/03/18 History Allergies Allergy/AdvReac Type Severity Reaction Status Date / Time carbamazepine [From Tegretol] Allergy Severe Anaphylaxis Verified 12/11/18 11:42 lithium [[place]] Allergy Severe Anaphylaxis Verified 12/11/18 11:42 shellfish derived Allergy Severe Anaphylaxis Verified 12/11/18 11:42 aspartame Allergy Unknown Verified 12/11/18 11:42 citalopram hydrobromide AdvReac Intermediate Nausea & Verified 12/11/18 11:42 [From Celexa] Vomiting Surgical - Exam Vital Signs Temp Pulse Resp BP Pulse Ox 98.5 F 72 16 129/83 100 12/11/18 11:57 12/11/18 11:57 12/11/18 11:57 12/11/18 11:57 12/11/18 11:57 - General well developed, well nourished, no distress - Eyes PERRL - ENT normal pinna - Neck no masses - Respiratory normal expansion - Cardiovascular Rhythm: regular - Abdomen Abdomen: soft, non tender Results - Labs Abnormal Lab Results - Last 24 Hours (Table) 12/11/18 Range/Units 12:09 POC Glucose (mg/dL) 108 H (75-99) mg/dL Assessment and Plan Assessment: History of colon cancer we'll perform revision of Port-A-Cath.
[2018-12-11] MEDS ORDERED: HEPARIN SODIUM,PORCINE 100 UNIT/ML 5 ML VIAL IV ONE ×2 (12:40→14:13)
[2018-12-11] MEDS ORDERED: BUPIVACAIN-EPI 0.25%-1:200,000 30 ML VIAL SQ ONE ×2 (12:41→14:13)
[2018-12-11] MEDS ORDERED: IOHEXOL 180 MG/ML 1 ML ML INJ ONE ×2 (12:41→14:13)
[2018-12-11] MEDS ORDERED: ceFAZolin 3 GM in SODIUM CHLORIDE 0.9% 100 ML IVPB ONE (12:45)
[2018-12-11] MEDS ORDERED: PROPOFOL 10 MG/ML 20 ML VIAL IV ONE (13:30)
[2018-12-11] MEDS ORDERED: LIDOCAINE 1% INJ 10MG/ML (20 ML MDV) ONE (13:30)
[2018-12-11] MEDS ORDERED: MIDAZOLAM 2 MG/2 ML VIAL ONE (13:30)
[2018-12-11] MEDS ORDERED: INSULIN REGULAR 100 UNIT/ML VIAL ONE (13:30)
[2018-12-11] MEDS ORDERED: fentaNYL (PF) 50 MCG/ML 2 ML AMP ONE (13:30)
[2018-12-11] MEDS ORDERED: LACTATED RINGERS 1,000 ML IV ONE (14:48)
--- NOTE | 2018-12-11 14:52 | P.OP ---
Date of Procedure: 12/11/18 Preoperative Diagnosis: Colon cancer Malfunctioning Port-A-Cath Postoperative Diagnosis: Colon cancer Malfunctioning Port-A-Cath Procedure(s) Performed: Insertion of left subclavian Port-A-Cath Removal of right subclavian Port-A-Cath Anesthesia: ANGELICA Surgeon: Mayank Stovall Estimated Blood Loss (ml): 5 Pathology: none sent Condition: stable Disposition: PACU Description of Procedure: PROCEDURE: The patient was placed on the operating table in the supine position. She received MAC anesthetic. The [left chest was prepped and draped in the usual sterile fashion. The skin underneath the right clavicle was anesthetized with 1% Xylocaine and using Seldinger technique, the right subclavian vein was cannulized. The wire was placed through the needle and positioned under fluoroscopy. Next, the needle was removed and the port site was anesthetized with 1% Xylocaine. Skin was incised with #15 blade and port pocket was made using blunt and sharp dissection. Following this the catheter was attached to the sport and the port was flushed. The port was positioned into the pocket site and was secured with 3-0 Vicryl suture. The catheter was then brought out through the wire site and then the dilator sheath was placed over the wire and the dilator and the wire were removed. The catheter was placed through the sheath and the sheath was removed. The port was flushed with hep-lock solution. Skin was closed with interrupted 3-0 Vicryl sutures. Next, the right subcu Port-A-Cath removed. The skin was incised the Port-A-Cath site and using blunt and sharp dissection with cautery the Port-A-Cath was dissected free. The skin was closed interrupted 3-0 Monocryl suture. Steri- Strips were applied. The patient tolerated the procedure well. The patient was sent to recovery room for chest x-ray after the procedure.
--- NOTE | 2018-12-11 14:53 | FL ---
Fluoroscopy INDICATION: Pain FINDINGS: Fluoroscopy time: 4 seconds. Images obtained: 1. IMPRESSIONS: 1. Documentation of fluoroscopy.
[2018-12-11 14:55] VITALS: RESP 18
--- NOTE | 2018-12-11 15:11 | XR ---
EXAMINATION TYPE: XR chest 1V portable DATE OF EXAM: 12/11/2018 COMPARISON: 09/09/2018 INDICATION: Line placement TECHNIQUE: Single frontal view of the chest is obtained. FINDINGS: The heart size is normal. The pulmonary vasculature is normal. The lungs are clear. Left central venous catheter has been placed with the tip in the region of the brachiocephalic vein. Previous right side catheters been removed. No pneumothorax is evident. IMPRESSION: 1. No pneumothorax post left central venous catheter placement. Tip appears to be within the brachioc ephalic vein region.
[2018-12-11] MEDS ORDERED: HYDROcodone/APAP 5-325MG 1 EACH TAB PO ONE (15:33)
[2018-12-11 15:53] VITALS: BP 107/67; PULSE 61
[2018-12-11 15:59] LABS: Glucose,Whole Blood 136 mg/dL (75-99)
== END 2018-12-11 17:26 | disposition home or self-care (01) ==
LOC: OR 11:24
PROVIDERS: ATTEND Surgery
DX: T82.534A Leakage of infusion catheter, initial encounter (principal); C18.9 Malignant neoplasm of colon, unspecified; E11.9 Type 2 diabetes mellitus without complications; E78.5 Hyperlipidemia, unspecified; I10 Essential (primary) hypertension; G40.909 Epilepsy, unspecified, not intractable, without status epilepticus; I47.1 Supraventricular tachycardia; G47.33 Obstructive sleep apnea (adult) (pediatric); F43.10 Post-traumatic stress disorder, unspecified; F31.9 Bipolar disorder, unspecified; E66.9 Obesity, unspecified; Z79.4 Long term (current) use of insulin; Z87.891 Personal history of nicotine dependence; Z79.899 Other long term (current) drug therapy; Z91.013 Allergy to seafood; Z88.8 Allergy status to other drugs, medicaments and biological substances; Z90.49 Acquired absence of other specified parts of digestive tract; Z98.890 Other specified postprocedural states; Z68.37 Body mass index [BMI] 37.0-37.9, adult; Z92.21 Personal history of antineoplastic chemotherapy; Z90.89 Acquired absence of other organs; Z82.49 Family history of ischemic heart disease and other diseases of the circulatory system
CPT/HCPCS: 71045; 77001

== ENCOUNTER 2018-12-12 16:55 | Emergency (ER) | payer MEDICARE, OTHER ==
[2018-12-12 17:04] VITALS: RESP 18
[2018-12-12] MEDS ORDERED: SODIUM CHLORIDE 0.9% 1,000 ML IV STA (17:56)
--- NOTE | 2018-12-12 18:03 | ED ---
General Adult HPI - General Chief complaint: Recheck/Abnormal Lab/Rx Stated complaint: Post op, surgery 12/11 Time Seen by Provider: 12/12/18 17:37 Source: patient Mode of arrival: ambulatory Limitations: no limitations - History of Present Illness Initial comments: Patient is a 43-year-old male presenting to the emergency Department with complaints of feeling paranoid since having anesthesia yesterday. Patient had a chest port moved from the right side of his chest to the left side of his chest by Dr. Stovall yesterday afternoon. She is currently receiving chemo for colon cancer. Patient was released a few hours later. Patient states yesterday he was feeling okay, he ate dinner, and took a nap. Patient states later in the evening he started feeling anxious, paranoid, and angry. Patient states his feelings have continued today and so he wanted to be checked. Patient states he does remember feeling the same way with anesthesia before but he does not recall it being this severe. Patient has follow-up appointment with Dr. Stovall on . Patient is denying fever, chills, nausea, vomiting, abdominal pain, chest pain, shortness of breath. Has no other complaints at this time. Upon arrival to ER, patient is slightly tachycardia, other vital signs stable, afebrile. - Related Data Home Medications Medication Instructions Recorded Confirmed Insulin Glargine [Lantus] 50 units SQ HS 03/23/15 12/12/18 Atorvastatin Calcium [Lipitor] 20 mg PO HS 09/14/16 12/12/18 metFORMIN HCL [Glucophage] 850 mg PO AC-TID 09/14/16 12/12/18 Atenolol 25 mg PO DAILY 07/04/18 12/12/18 DULoxetine HCL [Cymbalta] 90 mg PO HS 07/04/18 12/12/18 Lisinopril [Zestril] 10 mg PO HS 07/04/18 12/12/18 Vortioxetine Hydrobromide 10 mg PO HS 07/04/18 12/12/18 [Trintellix] Ondansetron [Zofran] 4 mg PO Q8HR PRN 12/03/18 12/12/18 Previous Rx's Medication Instructions Recorded HYDROcodone/APAP 5-325MG [[place] 1 tab PO Q6HR PRN #10 tab 12/11/18 5-325] Allergies Allergy/AdvReac Type Severity Reaction Status Date / Time carbamazepine [From Tegretol] Allergy Severe Anaphylaxis Verified 12/12/18 17:57 lithium [[place]] Allergy Severe Anaphylaxis Verified 12/12/18 17:57 shellfish derived Allergy Severe Anaphylaxis Verified 12/12/18 17:57 aspartame Allergy Unknown Verified 12/12/18 17:57 citalopram hydrobromide AdvReac Intermediate Nausea & Verified 12/12/18 17:57 [From Celexa] Vomiting Review of Systems ROS Statement: Those systems with pertinent positive or pertinent negative responses have been documented in the HPI. ROS Other: All systems not noted in ROS Statement are negative. Past Medical History Past Medical History: Cancer Additional Past Medical History / Comment(s): Last seizure 2.5 yrs ago, colon cancer,port a cath rt upper chest, receiving chemo currently History of Any Multi-Drug Resistant Organisms: None Reported Past Surgical History: Appendectomy, Bowel Resection, Hernia Repair, Orthopedic Surgery, Tonsillectomy Additional Past Surgical History / Comment(s): Right knee sx, upper palate reconstruction for sleep apnea, R colectomy, Lymph node bx. on 08/21/18. Past Anesthesia/Blood Transfusion Reactions: Motion Sickness Past Psychological History: Bipolar, Depression, Schizoaffective Disorder, Schizophrenia Smoking Status: Former smoker Past Alcohol Use History: None Reported Past Drug Use History: Marijuana - Past Family History Mother Family Medical History: Congestive Heart Failure (CHF), Pulmonary Embolus Additional Family Medical History / Comment(s): CHF General Exam - General Exam Comments Initial Comments: GENERAL: Well-appearing, well-nourished and in no acute distress. Patient does appear anxious. HEAD: Atraumatic, normocephalic. EYES: Pupils equal round and reactive to light, extraocular movements intact, sclera anicteric, conjunctiva are normal. ENT: TMs normal, nares patent, oropharynx clear without exudates. Moist mucous membranes. NECK: Normal range of motion, supple without lymphadenopathy or JVD. LUNGS: Breath sounds clear to auscultation bilaterally and equal. No wheezes rales or rhonchi. HEART: Regular rate and rhythm without murmurs, rubs or gallops. ABDOMEN: Soft, nontender, normoactive bowel sounds. No guarding, no rebound. No masses appreciated. : Deferred EXTREMITIES: Normal range of motion, no pitting or edema. No clubbing or cyanosis. NEUROLOGICAL: Cranial nerves II through XII grossly intact. Normal speech, normal gait. PSYCH: Normal mood, normal affect. Limited eye contact. SKIN: Warm, Dry, normal turgor. Patient has recent surgical incision in the right upper chest and left upper chest for port removal and replacement on the left. No signs of infection surrounding either incision. No areas of fluctuant, no erythema. Limitations: no limitations Course Vital Signs 12/12/18 12/12/18 12/12/18 17:00 17:17 18:48 Temperature 97.8 F 98 F Pulse Rate 115 H 102 H 68 Respiratory 18 18 18 Rate Blood Pressure 141/87 129/74 O2 Sat by Pulse 97 97 100 Oximetry Medical Decision Making - Medical Decision Making Patient is a 43-year-old male presenting with complaints of feeling paranoid, anxious, angry after receiving anesthesia yesterday. Patient had port removal and replacement by Dr. Tony yesterday under anesthesia. Patient is currently receiving chemo for colon cancer. Patient states since receiving the anesthesia, he has been feeling an increase in anxiety, paranoid and feeling very angry. Patient has had this reaction in the past but he feels this is more intense. Patient denies any homicidal or suicidal thoughts. Patient does feel safe at home. Patient denies any fever, chills, chest pain, shortness of br eath, nausea, vomiting, abdominal pain. Patient's exam is within normal limits. Patient's white count is 16.4 however it is comparable to his last white count. CMP is within normal limits. UA shows no acute findings. Patient did receive a liter bolus. Patient is feeling stable at this time. Patient is requesting to go home and feel safe to do so. Patient is stable for discharge at this [facility]. Vital signs are stable. Return parameters were discussed with the patient he verbalizes understanding. Case discussed with Dr. Riggs. - Lab Data Result diagrams: 12/12/18 18:14 12/12/18 18:14 Lab Results 12/12/18 12/12/18 12/12/18 Range/Units 18:14 18:14 18:29 WBC 16.4 H (3.8-10.6) k/uL RBC 4.88 (4.30-5.90) m/uL Hgb 12.6 L (13.0-17.5) gm/dL Hct 38.0 L (39.0-53.0) % MCV 77.7 L (80.0-100.0) fL MCH 25.8 (25.0-35.0) pg MCHC 33.2 (31.0-37.0) g/dL RDW 18.4 H (11.5-15.5) % Plt Count 310 (150-450) k/uL Neutrophils % (Manual) 61 % Lymphocytes % (Manual) 33 % Monocytes % (Manual) 5 % Eosinophils % (Manual) 1 % Neutrophils # (Manual) 10.00 H (1.3-7.7) k/uL Lymphocytes # (Manual) 5.41 H (1.0-4.8) k/uL Monocytes # (Manual) 0.82 (0-1.0) k/uL Eosinophils # (Manual) 0.16 (0-0.7) k/uL Nucleated RBCs 0 (0-0) /100 WBC Manual Slide Review Performed Anisocytosis Slight Microcytosis Slight Sodium 140 (137-145) mmol/L Potassium 3.8 (3.5-5.1) mmol/L Chloride 107 (98-107) mmol/L Carbon Dioxide 20 L (22-30) mmol/L Anion Gap 13 mmol/L BUN 12 (9-20) mg/dL Creatinine 0.71 (0.66-1.25) mg/dL Est GFR (CKD-EPI)AfAm >90 (>60 ml/min/1.73 sqM) Est GFR (CKD-EPI)NonAf >90 (>60 ml/min/1.73 sqM) Glucose 110 H (74-99) mg/dL Calcium 9.7 (8.4-10.2) mg/dL Total Bilirubin 0.5 (0.2-1.3) mg/dL AST 23 (17-59) U/L ALT 18 L (21-72) U/L Alkaline Phosphatase 94 (38-126) U/L Total Protein 7.4 (6.3-8.2) g/dL Albumin 4.1 (3.5-5.0) g/dL Urine Color Yellow Urine Appearance Clear (Clear) Urine pH 6.0 (5.0-8.0) Ur Specific [place] 1.028 (1.001-1.035) Urine Protein 1+ H (Negative) Urine Glucose (UA) 2+ H (Negative) Urine Ketones Negative (Negative) Urine Blood Negative (Negative) Urine Nitrite Negative (Negative) Urine Bilirubin Negative (Negative) Urine Urobilinogen 2.0 (<2.0) mg/dL Ur Leukocyte Esterase Negative (Negative) Urine RBC 7 H (0-5) /hpf Urine WBC 6 H (0-5) /hpf Ur Squamous Epith Cells 1 (0-4) /hpf Urine Mucus Many H (None) /hpf Disposition Clinical Impression: Anxiety Disposition: HOME SELF-CARE Condition: Stable Instructions (If sedation given, give patient instructions): Anxiety (ED) Additional Instructions: Please return to the Emergency Department if symptoms worsen or any other concerns. Follow-up with Dr. Stovall as discussed next week. Is patient prescribed a controlled substance at d/c from ED?: No Referrals: None,Stated [Primary Care Provider] - 1-2 days
[2018-12-12 18:48] LABS: ALT 18 U/L (21-72); AST 23 U/L (17-59); African American GFR (CKD) >90 (>60 ml/min/1.73 sqM); Albumin 4.1 g/dL (3.5-5.0); Alkaline Phosphatase 94 U/L (38-126); Anion Gap 13 mmol/L; Blood Urea Nitrogen 12 mg/dL (9-20); Calcium 9.7 mg/dL (8.4-10.2); Carbon Dioxide 20 mmol/L (22-30); Chloride 107 mmol/L (98-107); Glucose 110 mg/dL (74-99); Potassium 3.8 mmol/L (3.5-5.1); Sodium 140 mmol/L (137-145); Total Bilirubin 0.5 mg/dL (0.2-1.3); Total Protein 7.4 g/dL (6.3-8.2)
[2018-12-12 19:06] LABS: Appearance,Urine Clear (Clear); Bilirubin,Urine Negative (Negative); Blood,Urine Negative (Negative); Color,Urine Yellow; Glucose,Urine (UA) 2+ (Negative); Ketones,Urine Negative (Negative); Leukocyte Esterase,Urine Negative (Negative); Mucus,Urine Many /hpf; Nitrite,Urine Negative (Negative); Protein,Urine 1+ (Negative); RBC,Urine 7 /hpf (0-5); Specific Gravity,Urine 1.028 (1.001-1.035); Squamous Epithelial Cell,Urine 1 /hpf (0-4)
[2018-12-12 19:21] LABS: Anisocytosis Slight; HGB 12.6 gm/dL (13.0-17.5); MCH 25.8 pg (25.0-35.0); MCHC 33.2 g/dL (31.0-37.0); MCV 77.7 fL (80.0-100.0); Mean Platelet Volume 6.5; Microcytosis Slight; Platelet Count 310 k/uL (150-450); RBC 4.88 m/uL (4.30-5.90); RDW 18.4 % (11.5-15.5); WBC 16.4 k/uL (3.8-10.6)
[2018-12-12 20:12] LABS: Eosinophils # (M) 0.16 k/uL (0-0.7); Lymphocytes # (M) 5.41 k/uL (1.0-4.8); Monocytes # (M) 0.82 k/uL (0-1.0); Neutrophils % (M) 61 %; Nucleated Red Blood Cells 0 /100 WBC (0-0); Total Cells Counted 100
[2018-12-12 20:29] VITALS: BP 142/99; PULSE 69; TEMP 98.2
== END 2018-12-12 20:29 | disposition home or self-care (01) ==
LOC: EC 16:55
DX: F41.9 Anxiety disorder, unspecified (principal); D72.829 Elevated white blood cell count, unspecified; F60.0 Paranoid personality disorder; R00.0 Tachycardia, unspecified; F25.1 Schizoaffective disorder, depressive type; F25.0 Schizoaffective disorder, bipolar type; Z87.891 Personal history of nicotine dependence; Z85.038 Personal history of other malignant neoplasm of large intestine; Z92.21 Personal history of antineoplastic chemotherapy; Z79.4 Long term (current) use of insulin; Z79.899 Other long term (current) drug therapy; Z88.8 Allergy status to other drugs, medicaments and biological substances; Z91.013 Allergy to seafood
CPT/HCPCS: 36415; 80053; 81001; 85025; 96360; 99285

== ENCOUNTER → 2019-01-09 | Outpatient (CLI) | payer MEDICARE, OTHER ==
[2019-01-09 10:43] VITALS: BP 122/78; PULSE 78; RESP 16
--- NOTE | 2019-01-09 11:27 | P.CONS ---
History of Present Illness - Reason for Consult Consult date: 01/09/19 - Chief Complaint Pain in multiple joints including both hands and right knee - History of Present Illness This is a 43-year-old morbidly obese gentleman with history of colon carcinoma undergoing chemotherapy. The patient was diagnosed with rheumatoid arthritis and he noticed that the arthritis pain gets worse with chemotherapy. His pain is mostly in both hands and also on the right knee. The patient has been using [place] 5 mg however he thinks is not controlling his pain well. He was never referred to a maintenance painter for his history of altered arthritis. He admits to using marijuana twice a day however he is willing to quit using it if his pain treatment requires that. The patient denies using tobacco. He lives with his son and his on disability. Past Medical History Past Medical History: Cancer Additional Past Medical History / Comment(s): Last seizure 2.5 yrs ago, colon cancer,port a cath rt upper chest, receiving chemo currently History of Any Multi-Drug Resistant Organisms: None Reported Past Surgical History: Appendectomy, Bowel Resection, Hernia Repair, Orthopedic Surgery, Tonsillectomy Additional Past Surgical History / Comment(s): Right knee sx, upper palate reconstruction for sleep apnea, R colectomy, Lymph node bx. on 08/21/18. Past Anesthesia/Blood Transfusion Reactions: Motion Sickness Past Psychological History: Bipolar, Depression, Schizoaffective Disorder, Schiz ophrenia Additional Psychological History / Comment(s): no current thoughts of harming self. Smoking Status: Former smoker Past Alcohol Use History: None Reported Additional Past Alcohol Use History / Comment(s): Patient was a smoker one pack per day of cigarettes for 5 years, quit in 1992. Past Drug Use History: Marijuana Additional Drug Use History / Comment(s): Occasional Marijuana use, aware not to use 24 hrs prior to procedure. - Past Family History Mother Family Medical History: Congestive Heart Failure (CHF), Pulmonary Embolus Additional Family Medical History / Comment(s): CHF Medications and Allergies Home Medications Medication Instructions Recorded Confirmed Type Insulin Glargine [Lantus] 50 units SQ HS 03/23/15 01/09/19 History Atorvastatin Calcium [Lipitor] 20 mg PO HS 09/14/16 01/09/19 History metFORMIN HCL [Glucophage] 850 mg PO AC-TID 09/14/16 01/09/19 History Atenolol 25 mg PO DAILY 07/04/18 01/09/19 History Lisinopril [Zestril] 10 mg PO HS 07/04/18 01/09/19 History Vortioxetine Hydrobromide 10 mg PO HS 07/04/18 01/09/19 History [Trintellix] Ondansetron [Zofran] 4 mg PO Q8HR PRN 12/03/18 01/09/19 History HYDROcodone/APAP 5-325MG [[place] 1 tab PO Q6HR PRN #10 tab 12/11/18 01/09/19 Rx 5-325] Cholecalciferol (Vitamin D3) 2,000 unit PO DAILY 01/09/19 01/09/19 History [Vitamin D3] DULoxetine HCL [Cymbalta] 120 mg PO DAILY 01/09/19 01/09/19 History Multivitamins, Thera [Multivitamin 1 tab PO DAILY 01/09/19 01/09/19 History (formulary)] Vitamin B Complex 1 each PO DAILY 01/09/19 01/09/19 History Allergies Allergy/AdvReac Type Severity Reaction Status Date / Time carbamazepine [From Tegretol] Allergy Severe Anaphylaxis Verified 01/09/19 10:22 lithium [[place]] Allergy Severe Anaphylaxis Verified 01/09/19 10:22 shellfish derived Allergy Severe Anaphylaxis Verified 01/09/19 10:22 aspartame Allergy Unknown Verified 01/09/19 10:22 citalopram hydrobromide AdvReac Intermediate Nausea & Verified 01/09/19 10:22 [From Celexa] Vomiting Physical Exam Vitals: Vital Signs Pulse Resp BP Pulse Ox 01/09/19 10:30 78 16 122/78 98 Intake and Output 01/08/19 01/09/19 01/09/19 22:59 06:59 14:59 Other: Weight 121.563 kg - Constitutional General appearance: morbidly obese - EENT Eyes: PERRLA - Cardiovascular Rhythm: regular - Neurologic Neurologic: CNII-XII intact - Psychiatric Psychiatric: A&O x's 3, appropriate affect, intact judgment & insight Postoperative tenderness in the interphalangeal joints in both hands. No swelling or malformation in the hand joints. He has normal muscle strength in the lower extremities bilaterally and symmetrically Assessment and Plan Plan: This is a 43-year-old gentleman with history of colon carcinoma and current chemotherapy. The patient has an exacerbation of his rheumatoid arthritis. I will increase his [place] to 7.5 mg I will give him up to 2 pills a day if needed for pain. The patient will stop using marijuana. The plan will be to continue with [place] until his chemotherapy is over and then we will refer him to a maintenance painter for the treatment for his rheumatoid arthritis and we will be weaning him off [place] then. The patient understands the plan and he is willing to go along with it. I thank you for the consultation
== END ==
LOC: PNWHC3 10:11
PROVIDERS: ATTEND Anesthesiology
DX: M25.561 Pain in right knee (principal); M06.9 Rheumatoid arthritis, unspecified; E66.01 Morbid (severe) obesity due to excess calories; F32.9 Major depressive disorder, single episode, unspecified; Z88.8 Allergy status to other drugs, medicaments and biological substances; Z91.013 Allergy to seafood; Z79.899 Other long term (current) drug therapy; Z79.891 Long term (current) use of opiate analgesic; Z85.038 Personal history of other malignant neoplasm of large intestine; Z79.4 Long term (current) use of insulin; Z87.891 Personal history of nicotine dependence
CPT/HCPCS: 99211

== ENCOUNTER → 2019-02-06 | Outpatient (CLI) | payer MEDICARE, OTHER ==
[2019-02-06 12:54] VITALS: BP 165/89; PULSE 89; RESP 18
--- NOTE | 2019-02-06 13:40 | P.PAINPG ---
Subjective Progress Note Date: 02/06/19 This is a 43-year-old morbidly obese gentleman with history of colon carcinoma undergoing chemotherapy. The patient was diagnosed with rheumatoid arthritis and he noticed that the arthritis pain gets worse with chemotherapy. His pain is mostly in both hands and also on the right knee. The patient has been using [place] 5 mg however he thinks is not controlling his pain well. He was never referred to a paint spray tender for his history of altered arthritis. He admits to using marijuana twice, and he is willing to stop using marijuana, last visit we increased his [place] to 7.5/325 twice a day, he reported the medication helping him to control his pain, he denies any side effect of the medication, he complained of severe stiffness and pain in the knee area bilaterally, and some stiffness in the upper extremity mainly in the hand Objective - Vital Signs Vital signs: Vital Signs Temp Pulse 89 02/06/19 12:45 Resp 18 02/06/19 12:45 BP 165/89 02/06/19 12:45 Pulse Ox 98 02/06/19 12:45 Intake & Output 02/05/19 02/06/19 02/06/19 18:59 06:59 18:59 Weight 115.212 kg - Exam - Constitutional General appearance: morbidly obese - EENT Eyes: PERRLA - Cardiovascular Rhythm: regular - Neurologic Neurologic: CNII-XII intact - Psychiatric Psychiatric: A&O x's 3, appropriate affect, intact judgment & insight Postoperative tenderness in the interphalangeal joints in both hands. No swelling or malformation in the hand joints. He has normal muscle strength in the lower extremities bilaterally and symmetrically Assessment and Plan Plan: Assessment and plan= generalized body pain secondary to colon cancer and chemotherapy. Rule out rheumatoid arthritis Chronic and current use of high-risk medication/opiate, risk of opioid addiction and dependence discussed with the patient and he understands, prescription for [place] 7.5/325 dispense 60 given and he will follow up with the pain clinic in 1 month's Next visit we'll do urine drug scr Patient denies any side effects of the current pain medication and the current treatment/medication helping the patient to do activity of daily living , Diagnoses, prognosis, treatment options, including but not limited to physical therapy, medication management, interventional therapies, and surgery, were discussed with the patie All the questions answered The narcotic consent was signed and patient agreed and understood the side effects and complications of opioid treatment. Patient signed the narcotic agreement, and was orally counseled, not to overuse, not to abuse, not to Divert , not tp sell pain medication, and to take it as prescribed only, Patient was counseled not to drive or operate heavy equipment while using narcotic medication, and advised not to use alcohol or any Illicit drugs while using the narcotis. understanding that lack of compliance with any of the above instructions, will likely to cause discharge from, the pain service, not to renew the prescription MAPS Reviwed and it was apropriate . , Time with Patient: Less than 30 PQRS Measure Charge Sheet Measure #130: Documentation of Current Meds in Medical Chart: Patient's medications documented in chart Measure #226: Tobacco Use: Screen & Cessation Intervention: Pt not a tobacco user Measure #111: Pneumonia Vaccination: Pneumococcal vaccine administered or previously received Measure #47: Advance Care Plan: Advance care planning discussed & documented, pt chose/unable to give Measure #412: Opioid Treatment Agreement: Documented signed opioid trtmnt agreemnt min once during opioid trtmnt Measure #408: Opioid Therapy Follow-up Evaluation: Patient had f/u eval minimum every 3 months during opioid therapy Measure #317: Preventitive Care & Scrn High Bld Press & F/U: Pre-hypertensive or hypertensive BP documented, pt will f/u with PCP Measure #128: Body Mass Index (BMI) Screening & Follow-up: BMI documented ABOVE normal parameters - f/u documented Measure #131: Pain Assessment & Follow-up: Pain positive & plan documented, Follow-up scheduled Measure #431: Unhealthy Alcohol Use Preventative Care & Scrn: Patient not identified as an unhealthy alcohol user PQRS Narrative: Smoking Status Former smoker Narcotic Agreement Date Signed 01/09/19 Blood Pressure 165/89 Pain Intensity [Right Hand] 8 Scale Used Numeric (1 - 10) Hx Alcohol Use (MH) No Home Medications: Ambulatory Orders Insulin Glargine [Lantus] 50 units SQ HS 03/23/15 Atorvastatin Calcium [Lipitor] 20 mg PO HS 09/14/16 metFORMIN HCL [Glucophage] 850 mg PO AC-TID 09/14/16 Atenolol 25 mg PO DAILY 07/04/18 Lisinopril [Zestril] 10 mg PO HS 07/04/18 Vortioxetine Hydrobromide [Trintellix] 10 mg PO HS 07/04/18 Ondansetron [Zofran] 4 mg PO Q8HR PRN 12/03/18 HYDROcodone/APAP 5-325MG [[place] 5-325] 1 tab PO Q6HR PRN #10 tab 12/11/18 Cholecalciferol (Vitamin D3) [Vitamin D3] 2,000 unit PO DAILY 01/09/19 DULoxetine HCL [Cymbalta] 120 mg PO DAILY 01/09/19 Multivitamins, Thera [Multivitamin (formulary)] 1 tab PO DAILY 01/09/19 Vitamin B Complex 1 each PO DAILY 01/09/19 Controlled Substance Measures - Controlled Substance Measures Is patient prescribed a controlled substance at discharge?: Yes When asked, does pt state using other controlled substances?: No If prescribed controlled substance>3 days was MAPS reviewed?: Yes If Rx opioid, was Start Talking consent form obtained?: Yes If opioid is for acute pain is fill amount 7 days or less?: No Was information provided regarding opioid addiction?: Yes
== END ==
LOC: PNWHC3 12:23
PROVIDERS: ATTEND Specialist
DX: C18.9 Malignant neoplasm of colon, unspecified (principal); R52 Pain, unspecified; Z87.891 Personal history of nicotine dependence; Z79.4 Long term (current) use of insulin; Z79.899 Other long term (current) drug therapy; Z79.891 Long term (current) use of opiate analgesic
CPT/HCPCS: 99211

== ENCOUNTER → 2019-03-05 | Outpatient (CLI) | payer MEDICARE, OTHER ==
[2019-03-05 12:56] VITALS: BP 116/77; PULSE 87; RESP 20
--- NOTE | 2019-03-07 12:07 | P.PAINPG ---
Subjective Progress Note Date: 03/05/19 This is a 43-year-old morbidly obese gentleman with history of colon carcinoma undergoing chemotherapy, he is 6-7 more sessions left over the next 2-3 months. The patient was diagnosed with rheumatoid arthritis and he noticed that the arthritis pain gets worse with chemotherapy. His pain is mostly in both hands and also on the right knee. The patient has been using [place] 7.5 mg with good benefit. At the last visit, he was counseled on stopping marijuana use, which he agreed to. He reports today that it has been about 20-21 days since his last marijuana use. Today, he reports the medication helping him to control his pain, he has mild side effects in the form of headaches. He complains of severe stiffness and pain in the knee area bilaterally, and some stiffness in the upper extremity mainly in the hand stop he is also started to notice neuropathy in bilateral lower extremities, from knees to feet. He does say that he is occasionally unstable on his feet. The past, he has been on Neurontin, for diabetic neuropathy however this was stopped several years ago since "diabetes resolved". He did experience good benefit from the medication at that time. Review of systems is negative for chest pain, shortness of breath, new onset weakness, abdominal pain, malaise, fever, night sweats, chills, homicidal or suicidal ideation, or bowel or bladder incontinence. He doesn't endorse a runny nose and diarrhea as well as occasional headaches. Objective - Vital Signs Vital signs: Vital Signs - Exam - Constitutional General appearance: morbidly obese - EENT Eyes: PERRLA - Cardiovascular No pedal edema - Neurologic Neurologic: CNII-XII intact - Psychiatric Psychiatric: A&O x's 3, appropriate affect, intact judgment & insight Neuro: He has normal muscle strength in the lower extremities bilaterally and symmetrically in all nerves are grossly intact Assessment and Plan Plan: Assessment and plan= generalized body pain secondary to colon cancer and chidi motherapy. Rule out rheumatoid arthritis Chronic and current use of high-risk medication/opiate, risk of opioid addiction and dependence discussed with the patient and he understands, prescription for [place] 7.5/325 dispense 60. Refill be given when patient returns to clinic for urine drug screen. Prescription for gabapentin 300 MG daily at bedtime given, with one refill. Patient reports that he stopped marijuana 20-21 days ago. We called our lab, marijuana can be detected up to 21 days. I instructed him to come back to the pain clinic next week to get a urine drug screen. I also counseled him that if his urine drug screen is positive for marijuana, we will have to wean his opioids. Patient expressed understanding The narcotic consent was signed and patient agreed and understood the side effects and complications of opioid treatment. Patient signed the narcotic agreement, and was orally counseled, not to overuse, not to abuse, not to Divert , not to sell pain medication, and to take it as prescribed only, Patient was counseled not to drive or operate heavy equipment while using narcotic medication, and advised not to use alcohol or any Illicit drugs while using the narcotics. understanding that lack of compliance with any of the above instructions, will likely to cause discharge from, the pain service, not to renew the prescription MAPS reviewed and it was appropriate . Objective - Vital Signs Vital signs: Vital Signs Temp Pulse 87 03/05/19 12:46 Resp 20 03/05/19 12:46 BP 116/77 03/05/19 12:46 Pulse Ox 99 03/05/19 12:46 PQRS Measure Charge Sheet Measure #130: Documentation of Current Meds in Medical Chart: Patient's medicati ons documented in chart Measure #226: Tobacco Use: Screen & Cessation Intervention: Pt not a tobacco user Measure #111: Pneumonia Vaccination: Pneumococcal vaccine administered or previously received Measure #47: Advance Care Plan: Advance care planning discussed & documented, pt chose/unable to give Measure #412: Opioid Treatment Agreement: Documented signed opioid trtmnt agreemnt min once during opioid trtmnt Measure #408: Opioid Therapy Follow-up Evaluation: Patient had f/u eval minimum every 3 months during opioid therapy Measure #317: Preventitive Care & Scrn High Bld Press & F/U: Normal blood pressure, f/u not required Measure #128: Body Mass Index (BMI) Screening & Follow-up: BMI documented ABOVE normal parameters - f/u documented Measure #131: Pain Assessment & Follow-up: Pain positive & plan documented, Follow-up scheduled Measure #431: Unhealthy Alcohol Use Preventative Care & Scrn: Patient not identified as an unhealthy alcohol user PQRS Narrative: Smoking Status Former smoker Narcotic Agreement Date Signed 01/09/19 Blood Pressure 116/77 Pain Intensity [Bilateral Hand 9 ] Pain Intensity [Bilateral Knee 9 ] Scale Used Numeric (1 - 10) Hx Alcohol Use (MH) No Home Medications: Ambulatory Orders Insulin Glargine [Lantus] 50 units SQ HS 03/23/15 Atorvastatin Calcium [Lipitor] 20 mg PO HS 09/14/16 metFORMIN HCL [Glucophage] 850 mg PO AC-TID 09/14/16 Atenolol 25 mg PO DAILY 07/04/18 Lisinopril [Zestril] 10 mg PO HS 07/04/18 Vortioxetine Hydrobromide [Trintellix] 10 mg PO HS 07/04/18 Ondansetron [Zofran] 4 mg PO Q8HR PRN 12/03/18 Cholecalciferol (Vitamin D3) [Vitamin D3] 2,000 unit PO DAILY 01/09/19 DULoxetine HCL [Cymbalta] 120 mg PO DAILY 01/09/19 Multivitamins, Thera [Multivitamin (formulary)] 1 tab PO DAILY 01/09/19 Vitamin B Complex 1 each PO DAILY 01/09/19 HYDROcodone/APAP 7.5-325MG [[place] 7.5-325] 1 tab PO Q12H PRN 03/03/19 risperiDONE MICROSPHERES [RisperDAL CONSTA] 50 mg IM Q14D 03/03/19 Controlled Substance Measures - Controlled Substance Measures Is patient prescribed a controlled substance at discharge?: Yes When asked, does pt state using other controlled substances?: No If prescribed controlled substance>3 days was MAPS reviewed?: Yes If Rx opioid, was Start Talking consent form obtained?: Yes If opioid is for acute pain is fill amount 7 days or less?: No Was information provided regarding opioid addiction?: Yes
== END ==
LOC: PNWHC3 11:41
PROVIDERS: ATTEND Anesthesiology
DX: G89.3 Neoplasm related pain (acute) (chronic) (principal); C18.9 Malignant neoplasm of colon, unspecified; Z92.21 Personal history of antineoplastic chemotherapy; Z87.891 Personal history of nicotine dependence; E11.40 Type 2 diabetes mellitus with diabetic neuropathy, unspecified; Z68.33 Body mass index [BMI] 33.0-33.9, adult; R51 Headache; M25.561 Pain in right knee; M25.562 Pain in left knee; Z79.4 Long term (current) use of insulin; Z79.84 Long term (current) use of oral hypoglycemic drugs; Z79.899 Other long term (current) drug therapy
CPT/HCPCS: 99211

== ENCOUNTER → 2019-03-11 | Outpatient (CLI) | payer MEDICARE, OTHER ==
--- NOTE | 2019-03-11 13:45 | MR ---
EXAMINATION TYPE: MR brain wo/w con DATE OF EXAM: 03/11/2019 COMPARISON: CT brain November 20, 2018. HISTORY: dizziness giddiness, headache, hX Colon CA TECHNIQUE: Multiplanar, multisequence images of the brain and brainstem is performed without and with IV contras t, utilizing 12 mL intravenous Gadavist . FINDINGS: Diffusion weighted images demonstrate no evidence of a recent infarct or other diffusion ab normality. There is no extra-axial fluid collection. Mild generalized ventricular and sulcal promine nce. Occasional small focus of T2 hyperintensity scattered throughout the white matter bilaterally. L ess than 10 small scattered lesions are seen. Midline structures demonstrate normal morphology. The craniocervical junction appears within normal limits. Post contrast images demonstrate no abnormal enhancement. The dural venous sinuses appear pa tent. Redemonstration of mucous retention cyst or polyp in the inferior right sphenoid sinus anterior ly on image 9. Mild mucosal thickening bilateral anterior ethmoid sinuses otherwise paranasal sinuses are clear. Globes are intact bilaterally. No suspicious fluid signal bilateral mastoid air cells. IMPRESSION: Mild diffuse cerebral atrophy and minimal chronic small vessel ischemic change. No suspic ious enhancing masses are seen.
== END | disposition home or self-care (01) ==
LOC: RADMRIMAIN 10:59
PROVIDERS: ATTEND Internal Medicine Hematology & Oncology
DX: G31.89 Other specified degenerative diseases of nervous system (principal); I67.82 Cerebral ischemia; C18.2 Malignant neoplasm of ascending colon
CPT/HCPCS: 70553; A9585

== ENCOUNTER 2019-05-07 16:24 | Emergency (ER) | payer MEDICARE, OTHER ==
[2019-05-07] MEDS ORDERED: SODIUM CHLORIDE 0.9% 2,000 ML IV STA (17:14)
--- NOTE | 2019-05-07 17:31 | ED ---
Recheck HPI - General Source: patient, RN notes reviewed Mode of arrival: wheelchair Limitations: no limitations <Kwame Norman - Last Filed: 05/07/19 19:56> <Sari Riggs - Last Filed: 05/09/19 15:04> - General Chief Complaint: Recheck/Abnormal Lab/Rx Stated Complaint: Dizzy, falls Time Seen by Provider: 05/07/19 17:09 - History of Present Illness Initial Comments: This a 44-year-old male presents emergency Department with chief complaint of abdominal pain, hyperglycemia. Patient states when he was switched from chemo infusions or medications 2 weeks ago he's had hyperglycemia. He states that daily it read over 600. Patient states she's also developed mid to right-sided abdominal pain started 2 days ago. Patient does admit that he's had a prior colon resection secondary to colon cancer and this is the reasoning is on chemotherapy. Patient is also scheduled for radiation. Patient denies any rec ent fevers, chills, nausea or vomiting. Patient states he was constipated but took some laxatives which resolved it. Patient has not talked to anybody about his hyperglycemia. Patient states that his primary care physician left. Patient states he takes Lantus and metformin 3 times a day. (Kwame Norman) - Related Data Home Medications Medication Instructions Recorded Confirmed Insulin Glargine [Lantus] 50 units SQ HS 03/23/15 03/03/19 Atorvastatin Calcium [Lipitor] 20 mg PO HS 09/14/16 03/03/19 metFORMIN HCL [Glucophage] 850 mg PO AC-TID 09/14/16 03/03/19 Atenolol 25 mg PO DAILY 07/04/18 03/03/19 Lisinopril [Zestril] 10 mg PO HS 07/04/18 03/03/19 Vortioxetine Hydrobromide 10 mg PO HS 07/04/18 03/03/19 [Trintellix] Ondansetron [Zofran] 4 mg PO Q8HR PRN 12/03/18 03/03/19 Cholecalciferol (Vitamin D3) 2,000 unit PO DAILY 01/09/19 03/03/19 [Vitamin D3] DULoxetine HCL [Cymbalta] 120 mg PO DAILY 01/09/19 03/03/19 Multivitamins, Thera [Multivitamin 1 tab PO DAILY 01/09/19 03/03/19 (formulary)] Vitamin B Complex 1 each PO DAILY 01/09/19 03/03/19 HYDROcodone/APAP 7.5-325MG [[place] 1 tab PO Q12H PRN 03/03/19 03/03/19 7.5-325] risperiDONE MICROSPHERES 50 mg IM Q14D 03/03/19 03/03/19 [RisperDAL CONSTA] Allergies Allergy/AdvReac Type Severity Reaction Status Date / Time carbamazepine [From Tegretol] Allergy Severe Anaphylaxis Verified 05/07/19 16:37 lithium [Jarratt] Allergy Severe Anaphylaxis Verified 05/07/19 16:37 shellfish derived Allergy Severe Anaphylaxis Verified 05/07/19 16:37 aspartame Allergy SWELLING Verified 05/07/19 16:37 OF THROAT citalopram hydrobromide AdvReac Intermediate Nausea & Verified 05/07/19 16:37 [From Celexa] Vomiting Review of Systems ROS Other: All systems not noted in ROS Statement are negative. <Kwame Norman - Last Filed: 05/07/19 19:56> ROS Other: All systems not noted in ROS Statement are negative. <Sari Riggs - Last Filed: 05/09/19 15:04> ROS Statement: Those systems with pertinent positive or pertinent negative responses have been documented in the HPI. Past Medical History Past Medical History: Cancer Additional Past Medical History / Comment(s): Last seizure 2.5 yrs ago, colon cancer,port a cath rt upper chest, receiving chemo currently History of Any Multi-Drug Resistant Organisms: None Reported Past Surgical History: Appendectomy, Bowel Resection, Hernia Repair, Orthopedic Surgery, Tonsillectomy Additional Past Surgical History / Comment(s): Right knee sx, upper palate reconstruction for sleep apnea, R colectomy, Lymph node bx. on 08/21/18. Past Anesthesia/Blood Transfusion Reactions: Motion Sickness Past Psychological History: Bipolar, Depression, Schizoaffective Disorder, Schizophrenia Smoking Status: Former smoker - Past Family History Mother Family Medical History: Congestive Heart Failure (CHF), Pulmonary Embolus Additional Family Medical History / Comment(s): CHF <Kwame Norman - Last Filed: 05/07/19 19:56> General Exam Limitations: no limitations General appearance: alert, in no apparent distress Head exam: Present: atraumatic, normocephalic, normal inspection Respiratory exam: Present: normal lung sounds bilaterally. Absent: respiratory distress, wheezes, rales, rhonchi, stridor Cardiovascular Exam: Present: regular rate, normal rhythm, normal heart sounds. Absent: systolic murmur, diastolic murmur, rubs, gallop, clicks GI/Abdominal exam: Present: soft, tenderness (Mild to moderate mid to slightly right side abdominal pain on lateral to his primary incision), normal bowel sounds, hernia. Absent: distended, guarding, rebound, rigid Back exam: Absent: CVA tenderness (R), CVA tenderness (L) Neurological exam: Present: alert, oriented X3 Skin exam: Present: warm, dry, intact, normal color. Absent: rash <Kwame Norman - Last Filed: 05/07/19 19:56> Course Vital Signs 05/07/19 05/07/19 16:34 20:10 Temperature 97.5 F L 98.2 F Pulse Rate 93 70 Respiratory 16 19 Rate Blood Pressure 115/76 141/86 O2 Sat by Pulse 99 99 Oximetry Medical Decision Making - Lab Data Result diagrams: 05/07/19 17:50 05/07/19 17:50 <Kwame Norman - Last Filed: 05/07/19 19:56> - Lab Data Result diagrams: 05/07/19 17:50 05/07/19 17:50 <Sari Riggs - Last Filed: 05/09/19 15:04> - Medical Decision Making Patient presented for concerns of hyperglycemia, increasing abdominal pain. Patient lab work is essentially unremarkable patient has no evidence of hyperglycemia discuss possibly his glucometer may be broken or need to be elevated. Patient did have CT of his abdomen and pelvis which shows probable metastasis to liver, pancreas. Patient was updated on results patient is a follow-up appointment J Luis morning with oncologist. Patient's was updated on results feels comfortable discharge and follow-up. (Kwame Norman) I was available for consultation in the emergency department. The history and physical exam were done by the midlevel provider. I was consulted for this patients care. I reviewed the case with the midlevel provider and based on their presentation of the patient, I agree with the assessment, medical decision making and plan of care as documented. Chart was dictated using [employer] dictation software. Attempts were made to correct any dictation errors however some typographical errors may persist. (Sari Riggs) - Lab Data Lab Results 05/07/19 05/07/19 05/07/19 Range/Units 17:50 17:50 17:50 WBC 8.7 (3.8-10.6) k/uL RBC 4.61 (4.30-5.90) m/uL Hgb 12.8 L (13.0-17.5) gm/dL Hct 38.9 L (39.0-53.0) % MCV 84.3 (80.0-100.0) fL MCH 27.8 (25.0-35.0) pg MCHC 32.9 (31.0-37.0) g/dL RDW 15.2 (11.5-15.5) % Plt Count 261 (150-450) k/uL Neutrophils % 54 % Lymphocytes % 33 % Monocytes % 5 % Eosinophils % 4 % Basophils % 1 % Neutrophils # 4.7 (1.3-7.7) k/uL Lymphocytes # 2.9 (1.0-4.8) k/uL Monocytes # 0.5 (0-1.0) k/uL Eosinophils # 0.4 (0-0.7) k/uL Basophils # 0.1 (0-0.2) k/uL VBG pH (7.31-7.41) VBG pCO2 (37-51) mmHg VBG HCO3 (24-28) mmol/L Sodium 138 (137-145) mmol/L Potassium 3.5 (3.5-5.1) mmol/L Chloride 106 (98-107) mmol/L Carbon Dioxide 22 (22-30) mmol/L Anion Gap 10 mmol/L BUN 10 (9-20) mg/dL Creatinine 0.58 L (0.66-1.25) mg/dL Est GFR (CKD-EPI)AfAm >90 (>60 ml/min/1.73 sqM) Est GFR (CKD-EPI)NonAf >90 (>60 ml/min/1.73 sqM) Glucose 88 (74-99) mg/dL Lactic Ac Sepsis Rflx Plasma Lactic Acid Chay 2.1 H* (0.7-2.0) mmol/L Calcium 9.1 (8.4-10.2) mg/dL Total Bilirubin 0.7 (0.2-1.3) mg/dL AST 28 (17-59) U/L ALT 18 (4-49) U/L Alkaline Phosphatase 105 (38-126) U/L Total Protein 6.6 (6.3-8.2) g/dL Albumin 3.6 (3.5-5.0) g/dL Amylase 38 (30-110) U/L Lipase 213 (23-300) U/L Urine Color Urine Appearance (Clear) Urine pH (5.0-8.0) Ur Specific [place] (1.001-1.035) Urine Protein (Negative) Urine Glucose (UA) (Negative) Urine Ketones (Negative) Urine Blood (Negative) Urine Nitrite (Negative) Urine Bilirubin (Negative) Urine Urobilinogen (<2.0) mg/dL Ur Leukocyte Esterase (Negative) Acetone, Qual Negative (Negative) 05/07/19 05/07/19 05/07/19 Range/Units 17:50 18:39 19:10 WBC (3.8-10.6) k/uL RBC (4.30-5.90) m/uL Hgb (13.0-17.5) gm/dL Hct (39.0-53.0) % MCV (80.0-100.0) fL MCH (25.0-35.0) pg MCHC (31.0-37.0) g/dL RDW (11.5-15.5) % Plt Count (150-450) k/uL Neutrophils % % Lymphocytes % % Monocytes % % Eosinophils % % Basophils % % Neutrophils # (1.3-7.7) k/uL Lymphocytes # (1.0-4.8) k/uL Monocytes # (0-1.0) k/uL Eosinophils # (0-0.7) k/uL Basophils # (0-0.2) k/uL VBG pH 7.40 (7.31-7.41) VBG pCO2 37 (37-51) mmHg VBG HCO3 22 L (24-28) mmol/L Sodium (137-145) mmol/L Potassium (3.5-5.1) mmol/L Chloride (98-107) mmol/L Carbon Dioxide (22-30) mmol/L Anion Gap mmol/L BUN (9-20) mg/dL Creatinine (0.66-1.25) mg/dL Est GFR (CKD-EPI)AfAm (>60 ml/min/1.73 sqM) Est GFR (CKD-EPI)NonAf (>60 ml/min/1.73 sqM) Glucose (74-99) mg/dL Lactic Ac Sepsis Rflx Y Plasma Lactic Acid Chay (0.7-2.0) mmol/L Calcium (8.4-10.2) mg/dL Total Bilirubin (0.2-1.3) mg/dL AST (17-59) U/L ALT (4-49) U/L Alkaline Phosphatase (38-126) U/L Total Protein (6.3-8.2) g/dL Albumin (3.5-5.0) g/dL Amylase (30-110) U/L Lipase (23-300) U/L Urine Color Yellow Urine Appearance Clear (Clear) Urine pH 6.0 (5.0-8.0) Ur Specific [place] 1.040 H (1.001-1.035) Urine Protein Trace H (Negative) Urine Glucose (UA) 1+ H (Negative) Urine Ketones Negative (Negative) Urine Blood Negative (Negative) Urine Nitrite Negative (Negative) Urine Bilirubin Negative (Negative) Urine Urobilinogen <2.0 (<2.0) mg/dL Ur Leukocyte Esterase Negative (Negative) Acetone, Qual (Negative) Disposition Is patient prescribed a controlled substance at d/c from ED?: No Time of Disposition: 19:58 <Kwame Norman - Last Filed: 05/07/19 19:56> <Sari Riggs - Last Filed: 05/09/19 15:04> Clinical Impression: Colon cancer metastasized to liver, Abdominal pain Disposition: HOME SELF-CARE Condition: Stable Instructions (If sedation given, give patient instructions): Abdominal Pain (ED) Additional Instructions: Please return to the Emergency Department if symptoms worsen or any other concerns. Referrals: None,Stated [Primary Care Provider] - 1-2 days
[2019-05-07 18:13] LABS: Basophils # (A) 0.1 k/uL (0-0.2); Basophils % (A) 1 %; Eosinophils # (A) 0.4 k/uL (0-0.7); Eosinophils % (A) 4 %; HCT 38.9 % (39.0-53.0); HGB 12.8 gm/dL (13.0-17.5); Lymphocytes # (A) 2.9 k/uL (1.0-4.8); Lymphocytes % (A) 33 %; MCH 27.8 pg (25.0-35.0); MCHC 32.9 g/dL (31.0-37.0); MCV 84.3 fL (80.0-100.0); Mean Platelet Volume 7.1; Monocytes # (A) 0.5 k/uL (0-1.0); Monocytes % (A) 5 %; Neutrophils # (A) 4.7 k/uL (1.3-7.7); Neutrophils % (A) 54 %; Platelet Count 261 k/uL (150-450); RBC 4.61 m/uL (4.30-5.90); RDW 15.2 % (11.5-15.5); WBC 8.7 k/uL (3.8-10.6)
[2019-05-07 18:14] LABS: VBG PH 7.4 (7.31-7.41)
[2019-05-07 18:39] LABS: ALT 18 U/L (4-49); AST 28 U/L (17-59); African American GFR (CKD) >90 (>60 ml/min/1.73 sqM); Albumin 3.6 g/dL (3.5-5.0); Alkaline Phosphatase 105 U/L (38-126); Amylase 38 U/L (30-110); Anion Gap 10 mmol/L; Blood Urea Nitrogen 10 mg/dL (9-20); Calcium 9.1 mg/dL (8.4-10.2); Carbon Dioxide 22 mmol/L (22-30); Chloride 106 mmol/L (98-107); Glucose 88 mg/dL (74-99); Non-African American GFR(CKD) >90 (>60 ml/min/1.73 sqM); Potassium 3.5 mmol/L (3.5-5.1); Sodium 138 mmol/L (137-145); Total Bilirubin 0.7 mg/dL (0.2-1.3); Total Protein 6.6 g/dL (6.3-8.2)
--- NOTE | 2019-05-07 19:25 | CT ---
EXAMINATION TYPE: CT abdomen pelvis w con DATE OF EXAM: 05/07/2019 COMPARISON: 07/16/2018 HISTORY: abdominal pain, hx of colon ca CT DLP: 2707.4 mGycm Automated exposure control for dose reduction was used. CONTRAST: Performed with IV Contrast, patient injected with 100 mL of Isovue 300. Multiple axial sections were obtained from the diaphragm to the floor the pelvis with intravenous con trast. Lung bases are clear. There is no pleural effusion. Heart size is normal. There are multiple hypoden se foci in the liver of size range from 1 cm to 2 cm. The bile ducts are not dilated. Spleen is intac t. Gallbladder appears normal. There is no evidence of pancreatic mass. There is mild fat stranding a round the body and head of the pancreas. There is 2 cm enlarged peripancreatic lymph node. There is 1 .2 cm duodenal lymph node. There are some small bowel mesenteric lymph nodes that measure up to 1 cm. There is no adrenal mass. Kidneys show satisfactory contrast opacification. There is no hydronephrosi s. Ureters are not dilated. There is no retroperitoneal adenopathy. Bladder distends smoothly. There is no inguinal hernia. There is mild fat stranding in the anterior pararenal space bilaterally. There is no evidence of a pelvic mass. There is no evidence of bowel obstruction. There is no free ai r. There is broad-based ventral hernia that contains bowel and fat. There is apparent previous hernia wood rgery over the anterior mid abdomen. Lumbar vertebra have fairly normal spacing and alignment. Posterior elements are intact. The bony pel vis appears intact. I see no focal bone destruction. IMPRESSION: There are numerous hypodense liver lesions suspicious for metastatic disease. These appear new compar ed to old exam. There is some edema at the pancreas with a few lymph nodes suspicious for metastatic disease. There is clearing of the pleural effusions and basilar pulmonary infiltrates compared to old exam. Pe ripancreatic edema appears new compared to old exam. There is clearing of the extensive subcutaneous edema around the abdomen compared to old exam. There is some fluid and fat stranding in the anterior pararenal space probably due to old inflammatory proc ess evident on the old CT scan.
[2019-05-07 19:40] LABS: Appearance,Urine Clear (Clear); Bilirubin,Urine Negative (Negative); Blood,Urine Negative (Negative); Color,Urine Yellow; Glucose,Urine (UA) 1+ (Negative); Ketones,Urine Negative (Negative); Leukocyte Esterase,Urine Negative (Negative); Nitrite,Urine Negative (Negative); Protein,Urine Trace (Negative); Urobilinogen,Urine <2.0 mg/dL (<2.0)
[2019-05-07 20:19] VITALS: BP 141/86; PULSE 70; RESP 19; TEMP 98.2
== END 2019-05-07 20:10 | disposition home or self-care (01) ==
LOC: EC 16:24
DX: C78.7 Secondary malignant neoplasm of liver and intrahepatic bile duct (principal); K43.2 Incisional hernia without obstruction or gangrene; Z85.038 Personal history of other malignant neoplasm of large intestine; Z90.49 Acquired absence of other specified parts of digestive tract; Z92.21 Personal history of antineoplastic chemotherapy; F31.9 Bipolar disorder, unspecified; F20.9 Schizophrenia, unspecified; Z87.891 Personal history of nicotine dependence; Z88.8 Allergy status to other drugs, medicaments and biological substances; Z91.013 Allergy to seafood; Z91.02 Food additives allergy status; Z79.4 Long term (current) use of insulin; Z79.899 Other long term (current) drug therapy; Z98.890 Other specified postprocedural states
CPT/HCPCS: 99284; 96360; 96361; 36415; 80053; 82150; 82803; 82009; 83605; 83690; 85025; 81003; 74177; Q9967

== ENCOUNTER 2019-09-11 00:54 | Emergency (ER) | payer MEDICARE, OTHER ==
[2019-09-11 01:07] VITALS: RESP 18; TEMP 97.6
[2019-09-11] MEDS ORDERED: SODIUM CHLORIDE 0.9% 500 ML 500 ML IV STA (01:14)
[2019-09-11] MEDS ORDERED: MORPHINE SULFATE 4 MG/ML SYRINGE IVP STA (01:21)
--- NOTE | 2019-09-11 01:30 | ED ---
Back Pain HPI - General Chief Complaint: Back Pain/Injury Stated Complaint: Back Pain Time Seen by Provider: 09/11/19 01:10 Source: patient Limitations: no limitations - History of Present Illness Initial Comments: Tania is a 44yo M currently being treated for colon cancer with known metastases to lymph nodes. Patient's normal pain regimen is [place] 7.5 and gabapentin of which he is out of both currently as he has recently moved back to this area from outside of the area and has not been able to follow-up with his primary care doctor. Patient reports he's had a little bit of pain in his left lower ribs for couple of days, he states that tonight he went to bed he tried to lay on his left side and the pain became severe stabbing. Patient reports the pain is 10 out of 10 and unbearable. Patient reports the pain is in his left flank however is not similar to previous kidney stones. No associated fevers chills nausea or vomiting. - Related Data Home Medications Medication Instructions Recorded Confirmed Insulin Glargine [Lantus] 50 units SQ HS 03/23/15 03/03/19 Atorvastatin Calcium [Lipitor] 20 mg PO HS 09/14/16 03/03/19 metFORMIN HCL [Glucophage] 850 mg PO AC-TID 09/14/16 03/03/19 Atenolol 25 mg PO DAILY 07/04/18 03/03/19 Lisinopril [Zestril] 10 mg PO HS 07/04/18 03/03/19 Vortioxetine Hydrobromide 10 mg PO HS 07/04/18 03/03/19 [Trintellix] Ondansetron [Zofran] 4 mg PO Q8HR PRN 12/03/18 03/03/19 Cholecalciferol (Vitamin D3) 2,000 unit PO DAILY 01/09/19 03/03/19 [Vitamin D3] DULoxetine HCL [Cymbalta] 120 mg PO DAILY 01/09/19 03/03/19 Multivitamins, Thera [Multivitamin 1 tab PO DAILY 01/09/19 03/03/19 (formulary)] Vitamin B Complex 1 each PO DAILY 01/09/19 03/03/19 HYDROcodone/APAP 7.5-325MG [[place] 1 tab PO Q12H PRN 03/03/19 03/03/19 7.5-325] risperiDONE MICROSPHERES 50 mg IM Q14D 03/03/19 03/03/19 [RisperDAL CONSTA] Previous Rx's Medication Instructions Recorded Hydrocodone/Acetaminophen [[place] 1 tab PO Q4HR PRN 3 Days #18 tab 09/11/19 7.5-325] Allergies Allergy/AdvReac Type Severity Reaction Status Date / Time carbamazepine [From Tegretol] Allergy Severe Anaphylaxis Verified 09/11/19 01:07 lithium [[place]] Allergy Severe Anaphylaxis Verified 09/11/19 01:07 shellfish derived Allergy Severe Anaphylaxis Verified 09/11/19 01:07 aspartame Allergy SWELLING Verified 09/11/19 01:07 OF THROAT citalopram hydrobromide AdvReac Intermediate Nausea & Verified 09/11/19 01:07 [From Celexa] Vomiting Review of Systems ROS Statement: Those systems with pertinent positive or pertinent negative responses have been documented in the HPI. ROS Other: All systems not noted in ROS Statement are negative. Past Medical History Past Medical History: Cancer Additional Past Medical History / Comment(s): Last seizure 2.5 yrs ago, colon cancer,port a cath rt upper chest, chemo tx 08/28/2019 History of Any Multi-Drug Resistant Organisms: None Reported Past Surgical History: Appendectomy, Bowel Resection, Hernia Repair, Orthopedic Surgery, Tonsillectomy Additional Past Surgical History / Comment(s): Right knee sx, upper palate reconstruction for sleep apnea, R colectomy, Lymph node bx. on 08/21/18. Past Anesthesia/Blood Transfusion Reactions: Motion Sickness Past Psychological History: Bipolar, Depression, Schizoaffective Disorder, Schizophrenia Smoking Status: Former smoker Past Alcohol Use History: None Reported Past Drug Use History: Marijuana - Past Family History Mother Family Medical History: Congestive Heart Failure (CHF), Pulmonary Embolus Additional Family Medical History / Comment(s): CHF General Exam - General Exam Comments Initial Comments: Physical Exam GENERAL: Morbidly obese male HENT: Normocephalic, Atraumatic. EYES: PERRL, EOMI PULMONARY: Unlabored respirations. CARDIOVASCULAR: RRR Warm and well perfused extremities ABDOMEN: Obese Non tender Tenderness to percussion over left flank SKIN: No rashes or bruising : Deferred NEUROLOGIC: Alert and oriented Normal speech Normal gait MUSCULOSKELETAL: Moving all extremities with no apparent injury PSYCHIATRIC: No SI/HI Limitations: no limitations Course Vital Signs 09/11/19 09/11/19 01:01 04:04 Temperature 97.6 F Pulse Rate 122 H 100 Respiratory 18 18 Rate Blood Pressure 119/81 111/68 O2 Sat by Pulse 100 99 Oximetry Medical Decision Making - Medical Decision Making Patient was seen and evaluated history is obtained from patient History and physical exam are concerning for worsening left-sided flank and rib pain in a patient with known metastatic colon cancer Labs were obtained and were relatively unremarkable computed tomography scan was ordered to evaluate for metastatic disease Patient received 4 mg of IV morphine and reported significant improvement in his pain CT resulted with no bony metastases, known metastases to liver Results were discussed with the patient who is aware of these findings he's been resting comfortably since dose of morphine considering that he is typically on chronic narcotics and currently doesn't have any he will be given a three-day prescription advised follow-up with primary care or oncologist. All questions pertaining care were answered return parameters were discussed the patient was discharged home stable condition. - Lab Data Result diagrams: 09/11/19 01:52 09/11/19 01:52 Lab Results 09/11/19 09/11/19 Range/Units 01:52 01:52 WBC 10.6 (3.8-10.6) k/uL RBC 4.53 (4.30-5.90) m/uL Hgb 11.2 L (13.0-17.5) gm/dL Hct 35.3 L (39.0-53.0) % MCV 77.9 L (80.0-100.0) fL MCH 24.8 L (25.0-35.0) pg MCHC 31.8 (31.0-37.0) g/dL RDW 16.4 H (11.5-15.5) % Plt Count 403 (150-450) k/uL Neutrophils % 77 % Lymphocytes % 6 % Monocytes % 9 % Eosinophils % 6 % Basophils % 1 % Neutrophils # 8.1 H (1.3-7.7) k/uL Lymphocytes # 0.7 L (1.0-4.8) k/uL Monocytes # 1.0 (0-1.0) k/uL Eosinophils # 0.6 (0-0.7) k/uL Basophils # 0.1 (0-0.2) k/uL Anisocytosis Slight Microcytosis Slight Sodium 134 L (137-145) mmol/L Potassium 3.8 (3.5-5.1) mmol/L Chloride 103 (98-107) mmol/L Carbon Dioxide 25 (22-30) mmol/L Anion Gap 6 mmol/L BUN 14 (9-20) mg/dL Creatinine 0.60 L (0.66-1.25) mg/dL Est GFR (CKD-EPI)AfAm >90 (>60 ml/min/1.73 sqM) Est GFR (CKD-EPI)NonAf >90 (>60 ml/min/1.73 sqM) Glucose 146 H (74-99) mg/dL Calcium 8.8 (8.4-10.2) mg/dL Total Bilirubin 0.3 (0.2-1.3) mg/dL AST 36 (17-59) U/L ALT 25 (4-49) U/L Alkaline Phosphatase 233 H (38-126) U/L Total Protein 5.5 L (6.3-8.2) g/dL Albumin 2.7 L (3.5-5.0) g/dL Disposition Clinical Impression: Cancer associated pain Disposition: HOME SELF-CARE Condition: Stable Instructions (If sedation given, give patient instructions): Acute Low Back Pain (ED) Prescriptions: Hydrocodone/Acetaminophen [[place] 7.5-325] 1 tab PO Q4HR PRN 3 Days #18 tab PRN Reason: Pain Is patient prescribed a controlled substance at d/c from ED?: No Referrals: None,Stated [Primary Care Provider] - 1-2 days
[2019-09-11 01:58] LABS: Anisocytosis Slight; Basophils # (A) 0.1 k/uL (0-0.2); Basophils % (A) 1 %; Eosinophils # (A) 0.6 k/uL (0-0.7); Eosinophils % (A) 6 %; HCT 35.3 % (39.0-53.0); HGB 11.2 gm/dL (13.0-17.5); Lymphocytes # (A) 0.7 k/uL (1.0-4.8); Lymphocytes % (A) 6 %; MCH 24.8 pg (25.0-35.0); MCHC 31.8 g/dL (31.0-37.0); MCV 77.9 fL (80.0-100.0); Mean Platelet Volume 6.3; Microcytosis Slight; Monocytes % (A) 9 %; Neutrophils # (A) 8.1 k/uL (1.3-7.7); Neutrophils % (A) 77 %; Platelet Count 403 k/uL (150-450); RBC 4.53 m/uL (4.30-5.90); RDW 16.4 % (11.5-15.5); WBC 10.6 k/uL (3.8-10.6)
[2019-09-11 02:12] LABS: ALT 25 U/L (4-49); AST 36 U/L (17-59); African American GFR (CKD) >90 (>60 ml/min/1.73 sqM); Albumin 2.7 g/dL (3.5-5.0); Alkaline Phosphatase 233 U/L (38-126); Anion Gap 6 mmol/L; Blood Urea Nitrogen 14 mg/dL (9-20); Calcium 8.8 mg/dL (8.4-10.2); Carbon Dioxide 25 mmol/L (22-30); Chloride 103 mmol/L (98-107); Glucose 146 mg/dL (74-99); Non-African American GFR(CKD) >90 (>60 ml/min/1.73 sqM); Potassium 3.8 mmol/L (3.5-5.1); Sodium 134 mmol/L (137-145); Total Bilirubin 0.3 mg/dL (0.2-1.3); Total Protein 5.5 g/dL (6.3-8.2)
[2019-09-11] MEDS ORDERED: diphenhydrAMINE 50 MG/ML 1 ML VIAL IVP STA (02:58)
[2019-09-11] MEDS ORDERED: methylPREDNISolone SOD SUCCI 125 MG/2 ML VIAL IV STA (02:58)
[2019-09-11] MEDS ORDERED: FAMOTIDINE 20 MG/2 ML VIAL IV STA (02:59)
--- NOTE | 2019-09-11 03:43 | CT ---
EXAMINATION TYPE: CT ChestAbdPelvis w con DATE OF EXAM: 09/11/2019 HISTORY: lower back pain. H/x of metastatic cancer CT DLP: 2370.5 mGycm Automated exposure control for dose reduction was used. CONTRAST: Performed with IV Contrast, patient injected with 100mL mL of Isovue 300. COMPARISON: 05/17/[address] scan Exam performed from the thoracic inlet to the floor the pelvis with IV contrast. The lungs are clear of infiltrate. There is no pleural effusion. heart size is normal. There is no pericardial effusion. There are no hilar masses. There is no media stinal adenopathy. Thoracic aorta is intact. There are multiple variable-sized hypodense masses throughout the liver consistent with metastatic di sease. These measure up to 4.5 cm. The bile ducts are not dilated. Gallbladder appears normal. Spleen appears normal. There is small hiatal hernia. Stomach is intact. There is no evidence of pancreatic mass. There is epigastric ventral hernia that is broad-based and contains transverse colon. There are surgical clips apparently from ventral hernia surgery. There is large bowel surgical clips in the mi d abdomen. Kidneys show satisfactory contrast opacification. There is no hydronephrosis. Ureters are not dilated . Delayed images show normal opacification of the renal calyces. There are some retroperitoneal lymph nodes that measure less than 1 cm. Bladder distends smoothly. There is no inguinal hernia. There is no free fluid in the pelvis. There is no sign of a bowel obstruction. There is minimal small bowel me senteric edema. There are scattered enlarged mesenteric lymph nodes that measure up to 10 mm. Thoraci c vertebra show slight loss of height of T8 T7 and T6 vertebra up to 30%. I see no focal bone destruc tion. Sternum is intact. The bony pelvis is intact. The ribs appear intact. IMPRESSION: Numerous hypodense liver masses consistent with metastatic disease which appear to be new compared to PET/CT scan of 05/17/2019. Minimal mesenteric edema. Multiple mesenteric lymph nodes measuring up to 1 cm appear new compared to old exam and consistent with tumor.
[2019-09-11 04:05] VITALS: BP 111/68; PULSE 100
[2019-09-11] MEDS ORDERED: ACET/COD 300 MG/30 MG STARTER PACK 6 TAB BTL PO STA (04:27)
== END 2019-09-11 05:06 | disposition home or self-care (01) ==
LOC: EC 00:54
DX: G89.3 Neoplasm related pain (acute) (chronic) (principal); M54.5 Low back pain; C18.9 Malignant neoplasm of colon, unspecified; C78.7 Secondary malignant neoplasm of liver and intrahepatic bile duct; F31.9 Bipolar disorder, unspecified; Z79.84 Long term (current) use of oral hypoglycemic drugs; Z79.4 Long term (current) use of insulin; Z79.899 Other long term (current) drug therapy; Z88.8 Allergy status to other drugs, medicaments and biological substances; Z91.013 Allergy to seafood; Z87.891 Personal history of nicotine dependence
CPT/HCPCS: 36415; 80053; 85025; 71260; 74177; 99284; 96374; 96375 ×3; 96361 ×3; J2270; J1200; J2930; Q9967

== ENCOUNTER 2019-09-16 19:25 | Observation (INO) | payer MEDICARE, OTHER ==
[2019-09-16] MEDS ORDERED: ONDANSETRON 4 MG/2 ML VIAL IVP STA (20:17)
[2019-09-16] MEDS ORDERED: diphenhydrAMINE 50 MG/ML 1 ML VIAL IVP STA ×2 (20:17→22:17)
[2019-09-16] MEDS ORDERED: SODIUM CHLORIDE 0.9% 2,000 ML IV STA (20:17)
[2019-09-16 21:25] LABS: Appearance,Urine Clear (Clear); Bilirubin,Urine Negative (Negative); Blood,Urine Negative (Negative); Color,Urine Yellow; Glucose,Urine (UA) Negative (Negative); Ketones,Urine Trace (Negative); Leukocyte Esterase,Urine Negative (Negative); Nitrite,Urine Negative (Negative); PH, Urine 6.5 (5.0-8.0); Protein,Urine Trace (Negative); Specific Gravity,Urine 1.027 (1.001-1.035)
[2019-09-16 21:26] LABS: Anisocytosis Slight; Basophils # (A) 0.1 k/uL (0-0.2); Basophils % (A) 0 %; Eosinophils # (A) 0.3 k/uL (0-0.7); Eosinophils % (A) 3 %; HGB 11.6 gm/dL (13.0-17.5); Lymphocytes # (A) 0.8 k/uL (1.0-4.8); Lymphocytes % (A) 6 %; MCH 24.7 pg (25.0-35.0); MCHC 32.1 g/dL (31.0-37.0); MCV 76.9 fL (80.0-100.0); Mean Platelet Volume 6.7; Microcytosis Slight; Monocytes % (A) 8 %; Neutrophils # (A) 9.8 k/uL (1.3-7.7); Neutrophils % (A) 81 %; Platelet Count 533 k/uL (150-450); RBC 4.69 m/uL (4.30-5.90); RDW 16.3 % (11.5-15.5); WBC 12.2 k/uL (3.8-10.6)
[2019-09-16 21:34] LABS: ALT 22 U/L (4-49); AST 23 U/L (17-59); African American GFR (CKD) >90 (>60 ml/min/1.73 sqM); Albumin 2.9 g/dL (3.5-5.0); Alkaline Phosphatase 282 U/L (38-126); Anion Gap 7 mmol/L; Blood Urea Nitrogen 12 mg/dL (9-20); Calcium 9.2 mg/dL (8.4-10.2); Carbon Dioxide 26 mmol/L (22-30); Chloride 102 mmol/L (98-107); Glucose 133 mg/dL (74-99); Magnesium 1.5 mg/dL (1.6-2.3); Non-African American GFR(CKD) >90 (>60 ml/min/1.73 sqM); Potassium 3.7 mmol/L (3.5-5.1); Sodium 135 mmol/L (137-145); Total Bilirubin 0.6 mg/dL (0.2-1.3); Total Protein 5.9 g/dL (6.3-8.2)
--- NOTE | 2019-09-16 22:02 | XR ---
EXAMINATION TYPE: XR KUB DATE OF EXAM: 09/16/2019 COMPARISON: NONE HISTORY: Weakness. Nausea. TECHNIQUE: 2 views upright FINDINGS: There is no sign of intestinal obstruction or pneumoperitoneum. Fecal pattern is normal. Th ere are multiple shawna over the mid sacrum. There are no pathologic calcifications over the kidneys . Bony structures are intact. Lung bases are clear. IMPRESSION: Nonacute abdomen.
[2019-09-16] MEDS ORDERED: METOCLOPRAMIDE 5 MG/ML 2 ML VIAL IVP STA (22:17)
[2019-09-16] MEDS: MAGNESIUM SULFATE-D5W PMX 1 GM in DEXTROSE/WATER 1 100ML.BAG IVPB SCH ×2 (22:28→23:36)
--- NOTE | 2019-09-16 23:56 | ED ---
Nausea/Vomiting/Diarrhea HPI - General Source: patient Mode of arrival: EMS Limitations: no limitations <Swapna Nascimento - Last Filed: 09/16/19 23:46> <Buddy Mendoza - Last Filed: 09/17/19 07:39> - General Chief complaint: Nausea/Vomiting/Diarrhea Stated complaint: weakness Time Seen by Provider: 09/16/19 20:04 - History of Present Illness Initial comments: 44-year-old male patient with past medical history significant for colon cancer with lymph node involvement currently receiving chemotherapy presents to the emergency department today for evaluation of nausea and vomiting. Last chemotherapy treatment was 2-3 weeks ago. Patient does have a left chest port. Patient states that he has been vomiting since midnight early this morning. States he is unable to keep down any food or fluids. States he feels extremely nauseated. States he does have some mild midepigastric discomfort. Denies any radiation of pain through to his back. States he has been having normal bowel movements and passing gas. He denies any fever or chills. Denies any hematochezia, melena, or hematemesis. Patient denies any recent rash, cough, shortness of breath, chest pain, numbness, tingling, dizziness, weakness, h ematuria, dysuria, urinary urgency, urinary frequency, headache, visual changes, or any other complaints. (Swapna Nascimento) - Related Data Home Medications Medication Instructions Recorded Confirmed Insulin Glargine [Lantus] 50 units SQ HS 03/23/15 03/03/19 Atorvastatin Calcium [Lipitor] 20 mg PO HS 09/14/16 03/03/19 metFORMIN HCL [Glucophage] 850 mg PO AC-TID 09/14/16 03/03/19 Atenolol 25 mg PO DAILY 07/04/18 03/03/19 Lisinopril [Zestril] 10 mg PO HS 07/04/18 03/03/19 Vortioxetine Hydrobromide 10 mg PO HS 07/04/18 03/03/19 [Trintellix] Ondansetron [Zofran] 4 mg PO Q8HR PRN 12/03/18 03/03/19 Cholecalciferol (Vitamin D3) 2,000 unit PO DAILY 01/09/19 03/03/19 [Vitamin D3] DULoxetine HCL [Cymbalta] 120 mg PO DAILY 01/09/19 03/03/19 Multivitamins, Thera [Multivitamin 1 tab PO DAILY 01/09/19 03/03/19 (formulary)] Vitamin B Complex 1 each PO DAILY 01/09/19 03/03/19 HYDROcodone/APAP 7.5-325MG [[place] 1 tab PO Q12H PRN 03/03/19 03/03/19 7.5-325] risperiDONE MICROSPHERES 50 mg IM Q14D 03/03/19 03/03/19 [RisperDAL CONSTA] Previous Rx's Medication Instructions Recorded Hydrocodone/Acetaminophen [[place] 1 tab PO Q4HR PRN 3 Days #18 tab 09/11/19 7.5-325] Allergies Allergy/AdvReac Type Severity Reaction Status Date / Time carbamazepine [From Tegretol] Allergy Severe Anaphylaxis Verified 09/16/19 19:47 lithium [[place]] Allergy Severe Anaphylaxis Verified 09/16/19 19:47 shellfish derived Allergy Severe Anaphylaxis Verified 09/16/19 19:47 aspartame Allergy SWELLING Verified 09/16/19 19:47 OF THROAT citalopram hydrobromide AdvReac Intermediate Nausea & Verified 09/16/19 19:47 [From Celexa] Vomiting Review of Systems ROS Other: All systems not noted in ROS Statement are negative. <Swapna Nascimento - Last Filed: 09/16/19 23:46> ROS Other: All systems not noted in ROS Statement are negative. <Buddy Mendoza - Last Filed: 09/17/19 07:39> ROS Statement: Those systems with pertinent positive or pertinent negative responses have been documented in the HPI. Past Medical History Past Medical History: Cancer Additional Past Medical History / Comment(s): Last seizure 2.5 yrs ago, colon cancer,port a cath rt upper chest, chemo tx 08/28/2019 History of Any Multi-Drug Resistant Organisms: None Reported Past Surgical History: Appendectomy, Bowel Resection, Hernia Repair, Orthopedic Surgery, Tonsillectomy Additional Past Surgical History / Comment(s): Right knee sx, upper palate reconstruction for sleep apnea, R colectomy, Lymph node bx. on 08/21/18. Past Anesthesia/Blood Transfusion Reactions: Motion Sickness Past Psychological History: Bipolar, Depression, Schizoaffective Disorder, Schizophrenia Smoking Status: Former smoker Past Alcohol Use History: None Reported Past Drug Use History: Marijuana - Past Family History Mother Family Medical History: Congestive Heart Failure (CHF), Pulmonary Embolus Additional Family Medical History / Comment(s): CHF <Swapna Nascimento Pedro Pablo Stratton Last Filed: 09/16/19 23:46> General Exam Limitations: no limitations General appearance: alert, in no apparent distress, other (This is a well-develo ped, well-nourished adult male patient in no acute distress. Vital signs upon presentation are temperature 98.0F, pulse 99, respirations 20, blood pressure 122/88, pulse ox 100% on room air.) Eye exam: Present: normal appearance, PERRL, EOMI. Absent: scleral icterus, conjunctival injection, periorbital swelling ENT exam: Present: normal exam, normal oropharynx, mucous membranes moist Respiratory exam: Present: normal lung sounds bilaterally. Absent: respiratory distress, wheezes, rales, rhonchi, stridor Cardiovascular Exam: Present: regular rate, normal rhythm, normal heart sounds. Absent: systolic murmur, diastolic murmur, rubs, gallop, clicks GI/Abdominal exam: Present: soft, normal bowel sounds. Absent: distended, tenderness, guarding, rebound, rigid Neurological exam: Present: alert, oriented X3, CN II-XII intact Psychiatric exam: Present: normal affect, normal mood Skin exam: Present: warm, dry, intact, normal color. Absent: rash <Swapna Nascimento Pedro Pablo - Last Filed: 09/16/19 23:46> Course Vital Signs 09/16/19 09/16/19 09/16/19 19:30 21:30 23:00 Temperature 98.0 F Pulse Rate 99 94 102 H Respiratory 20 20 20 Rate Blood Pressure 122/88 148/89 149/85 O2 Sat by Pulse 100 98 99 Oximetry 09/17/19 05:35 Temperature 97.3 F L Pulse Rate 89 Respiratory 16 Rate Blood Pressure 105/88 O2 Sat by Pulse 98 Oximetry Medical Decision Making - Lab Data Result diagrams: 09/16/19 21:00 09/16/19 21:00 - Radiology Data Radiology results: report reviewed, image reviewed <Swapna Nascimento Pedro Pablo - Last Filed: 09/16/19 23:46> - Lab Data Result diagrams: 09/16/19 21:00 09/16/19 21:00 <Buddy Mendoza - Last Filed: 09/17/19 07:39> - Medical Decision Making 44 year-old male patient presents to the emergency department today for evalua tion of nausea and vomiting since midnight. Patient is currently receiving chemotherapy for treatment of colon cancer that has spread to the lymph nodes. Patient was diagnosed one year ago, did have colon resection. Physical examination is relatively unremarkable. Abdomen is soft and nontender. Upon reevaluation patient still reports significant nausea despite multiple doses of nausea medication. Patient will be admitted to the hospital for intractable nausea and vomiting. (Swapna Nascimento) I saw this patient in conjunction with the physician virtual assistant for [employer]. I performed independent history and physical exam. Agree with case management. (Buddy Mendoza) - Lab Data Lab Results 09/16/19 09/16/19 09/16/19 Range/Units 21:00 21:00 21:00 WBC 12.2 H (3.8-10.6) k/uL RBC 4.69 (4.30-5.90) m/uL Hgb 11.6 L (13.0-17.5) gm/dL Hct 36.0 L (39.0-53.0) % MCV 76.9 L (80.0-100.0) fL MCH 24.7 L (25.0-35.0) pg MCHC 32.1 (31.0-37.0) g/dL RDW 16.3 H (11.5-15.5) % Plt Count 533 H (150-450) k/uL Neutrophils % 81 % Lymphocytes % 6 % Monocytes % 8 % Eosinophils % 3 % Basophils % 0 % Neutrophils # 9.8 H (1.3-7.7) k/uL Lymphocytes # 0.8 L (1.0-4.8) k/uL Monocytes # 1.0 (0-1.0) k/uL Eosinophils # 0.3 (0-0.7) k/uL Basophils # 0.1 (0-0.2) k/uL Anisocytosis Slight Microcytosis Slight Sodium 135 L (137-145) mmol/L Potassium 3.7 (3.5-5.1) mmol/L Chloride 102 (98-107) mmol/L Carbon Dioxide 26 (22-30) mmol/L Anion Gap 7 mmol/L BUN 12 (9-20) mg/dL Creatinine 0.63 L (0.66-1.25) mg/dL Est GFR (CKD-EPI)AfAm >90 (>60 ml/min/1.73 sqM) Est GFR (CKD-EPI)NonAf >90 (>60 ml/min/1.73 sqM) Glucose 133 H (74-99) mg/dL Calcium 9.2 (8.4-10.2) mg/dL Magnesium 1.5 L (1.6-2.3) mg/dL Total Bilirubin 0.6 (0.2-1.3) mg/dL AST 23 (17-59) U/L ALT 22 (4-49) U/L Alkaline Phosphatase 282 H (38-126) U/L Total Protein 5.9 L (6.3-8.2) g/dL Albumin 2.9 L (3.5-5.0) g/dL Lipase 101 (23-300) U/L Urine Color Yellow Urine Appearance Clear (Clear) Urine pH 6.5 (5.0-8.0) Ur Specific [place] 1.027 (1.001-1.035) Urine Protein Trace H (Negative) Urine Glucose (UA) Negative (Negative) Urine Ketones Trace H (Negative) Urine Blood Negative (Negative) Urine Nitrite Negative (Negative) Urine Bilirubin Negative (Negative) Urine Urobilinogen 3.0 (<2.0) mg/dL Ur Leukocyte Esterase Negative (Negative) - Radiology Data KUB x-ray was obtained. Report was reviewed in its entirety. Impression by Dr. Zapata shows nonacute abdomen. (Swapna Nascimento) Disposition Decision to Admit Reason: Admit from EC Decision Date: 09/17/19 Decision Time: 00:00 <Swapna Nascimento - Last Filed: 09/16/19 23:46> <Buddy Mendoza - Last Filed: 09/17/19 07:39> Clinical Impression: Intractable nausea and vomiting Disposition: ADMITTED IP TO THIS [facility] Condition: Serious
[2019-09-17] MEDS ORDERED: PROCHLORPERAZINE SUPPOSITORY 25 MG SUPP RECTAL PRN
[2019-09-17] MEDS ORDERED: NALOXONE 0.4 MG/ML 1 ML VIAL IV PRN
[2019-09-17] MEDS: SODIUM CHLORIDE 0.9% 1,000 ML IV SCH ×2 (00:57→12:43)
[2019-09-17] MEDS: HYDROmorphone 1 MG/ML 1 ML SYRINGE IVP PRN ×2 (01:47→13:26)
[2019-09-17] MEDS ORDERED: ACETAMINOPHEN TAB 325 MG TAB PO STA ×2 (04:34→09:44)
[2019-09-17] MEDS: ONDANSETRON 4 MG/2 ML VIAL IVP PRN ×2 (12:21→21:41)
[2019-09-17] MEDS ORDERED: ACETAMINOPHEN TAB 325 MG TAB PO PRN (16:48)
[2019-09-17] MEDS ORDERED: LORATADINE 10 MG TAB PO PRN (17:49)
[2019-09-17] MEDS ORDERED: PROCHLORPERAZINE 10 MG TAB PO PRN (17:49)
--- NOTE | 2019-09-17 17:52 | P.CONS ---
History of Present Illness - Reason for Consult Consult date: 09/17/19 - Chief Complaint Vomiting - History of Present Illness 44-year-old male patient with past medical history significant for colon cancer with lymph node involvement currently receiving chemotherapy presents to the emergency department today for evaluation of nausea and vomiting. Last chemotherapy treatment was 3 weeks ago. Patient does have a left chest port. Patient states that he vomited a few times. His stools have been soft as well, no any diarrhea. He has pain in his lower back and ''kidneys''. No abdominal pain. No fevers or chills. Denies any hematochezia, melena, or hematemesis. Patient denies any recent rash, cough, shortness of breath, chest pain, dysuria, urinary urgency, urinary frequency, headache, visual changes, or any other complaints. Review of Systems Complete review of system performed, pertinent positives per HPI, otherwise negative Past Medical History Past Medical History: Cancer, Diabetes Mellitus, Eye Disorder, Hyperlipidemia, Hypertension, Seizure Disorder, Supraventricular Tachycardia (SVT) Additional Past Medical History / Comment(s): 06/2018 colon cancer with lymph node involvement with chemotherapy last 2-3 weeks ago and had radiation tx to lymph node, NIDDM type II, neuropathy bilateral hands and feet, falls, chronic generalized pain, R eye decreased vision-pt things d/t cataract, sepsis d/t ruptured appendix, iron anemia, History of Any Multi-Drug Resistant Organisms: None Reported Past Surgical History: Appendectomy, Bowel Resection, Hernia Repair, Orthopedic Surgery, Tonsillectomy Additional Past Surgical History / Comment(s): 08/11/18 cervical lymph node bx, exploratory laparotomy/appy and R colectomy, umbilical hernia repair, UVPPP, R knee arthroscopy, port a caths-currently L chest. Past Anesthesia/Blood Transfusion Reactions: Motion Sickness Smoking Status: Former smoker - Past Family History Father Family Medical History: Liver Disease Additional Family Medical History / Comment(s): Father had ETOH abuse. He from cirrhosis. Mother Family Medical History: Congestive Heart Failure (CHF), Pulmonary Embolus Additional Family Medical History / Comment(s): Mother from CHF Medications and Allergies Home Medications Medication Instructions Recorded Confirmed Type Atorvastatin Calcium [Lipitor] 20 mg PO HS 09/14/16 09/17/19 History metFORMIN HCL [Glucophage] 850 mg PO AC-TID 09/14/16 09/17/19 History Atenolol 25 mg PO DAILY 07/04/18 09/17/19 History Lisinopril [Zestril] 10 mg PO HS 07/04/18 09/17/19 History Cholecalciferol (Vitamin D3) 2,000 unit PO DAILY 01/09/19 09/17/19 History [Vitamin D3] DULoxetine HCL [Cymbalta] 120 mg PO DAILY 01/09/19 09/17/19 History Multivitamins, Thera [Multivitamin 1 tab PO DAILY 01/09/19 09/17/19 History (formulary)] Hydrocodone/Acetaminophen [[place] 1 tab PO Q4HR PRN 3 Days #18 tab 09/11/19 09/17/19 Rx 7.5-325] Dexamethasone 8 mg PO DIRECTED PRN 09/17/19 09/17/19 History Ferrous Sulfate [Iron] 325 mg PO TID 09/17/19 09/17/19 History Loperamide [Imodium] 2 - 4 mg PO DIRECTED PRN 09/17/19 09/17/19 History Loratadine [Claritin] 10 mg PO DAILY PRN 09/17/19 09/17/19 History Ondansetron HCl [Zofran] 8 mg PO BID PRN 09/17/19 09/17/19 History Prochlorperazine [Compazine] 10 mg PO Q6H PRN 09/17/19 09/17/19 History risperiDONE [RisperDAL] 1 mg PO BID 09/17/19 09/17/19 History Allergies Allergy/AdvReac Type Severity Reaction Status Date / Time carbamazepine [From Tegretol] Allergy Severe Anaphylaxis Verified 09/17/19 09:15 lithium [[place]] Allergy Severe Anaphylaxis Verified 09/17/19 09:15 shellfish derived Allergy Severe Anaphylaxis Verified 09/17/19 09:15 aspartame Allergy SWELLING Verified 09/17/19 09:15 OF THROAT citalopram hydrobromide AdvReac Intermediate Nausea & Verified 09/17/19 09:15 [From Celexa] Vomiting Physical Exam Vitals: Vital Signs Temp Pulse Pulse Resp BP BP Pulse Ox 09/17/19 16:21 98.2 F 82 18 135/81 100 09/17/19 16:00 82 18 09/17/19 15:03 98.3 F 91 16 143/86 100 09/17/19 14:00 97.0 F L 95 16 142/85 99 09/17/19 05:35 97.3 F L 89 16 105/88 98 09/16/19 23:00 102 H 20 149/85 99 09/16/19 21:30 94 20 148/89 98 09/16/19 19:30 98.0 F 99 20 122/88 100 Intake and Output 09/17/19 09/17/19 09/17/19 06:59 14:59 22:59 Other: Voiding Method Toilet Weight 111.584 kg Constitutional: No acute distress, conversant, pleasant Eyes:Anicteric sclerae, moist conjunctiva, no lid-lag, PERRLA, ENMT: Oropharynx clear, no erythema, exudates Neck: Supple, FROM, no masses, or JVD, No carotid bruits, No thyromegaly Lungs: Clear to auscultation, Clear to percussion, Normal respiratory effort, no accessory muscle use Cardiovascular: Heart regular in rate and rhythm, No murmurs, gallops, or rubs, No peripheral edema Abdominal: Soft, tender, no guarding, rebound or rigidity, Normoactive bowel sounds, No hepatomegaly, No splenomegaly, No palpable mass Skin: Normal temperature, tone, texture, turgor, no induration, No subcutaneous nodules, No rash, lesions, No ulcers Extremities: No digital cyanosis, No clubbing, Pedal pulses intact and symmetrical, Radial pulses intact and symmetrical, No calf tenderness Psychiatric: Alert and oriented to person, place and time, appropriate affect, intact judgement Neuro: Muscles Strength 5/5 in all 4 extremities, Sensation to light touch grossly present throughout, Cranial nerves II-XII grossly intact, no focal senso ry deficits Results CBC & Chem 7: 09/16/19 21:00 09/16/19 21:00 Labs: Abnormal Lab Results - Last 24 Hours (Table) 09/16/19 09/16/19 09/16/19 Range/Units 21:00 21:00 21:00 WBC 12.2 H (3.8-10.6) k/uL Hgb 11.6 L (13.0-17.5) gm/dL Hct 36.0 L (39.0-53.0) % MCV 76.9 L (80.0-100.0) fL MCH 24.7 L (25.0-35.0) pg RDW 16.3 H (11.5-15.5) % Plt Count 533 H (150-450) k/uL Neutrophils # 9.8 H (1.3-7.7) k/uL Lymphocytes # 0.8 L (1.0-4.8) k/uL Sodium 135 L (137-145) mmol/L Creatinine 0.63 L (0.66-1.25) mg/dL Glucose 133 H (74-99) mg/dL Magnesium 1.5 L (1.6-2.3) mg/dL Alkaline Phosphatase 282 H (38-126) U/L Total Protein 5.9 L (6.3-8.2) g/dL Albumin 2.9 L (3.5-5.0) g/dL Urine Protein Trace H (Negative) Urine Ketones Trace H (Negative) Assessment and Plan Plan: Intractable nausea and vomiting Liquid diet Anti-emetics IV fluids Diabetes type 2 Hold metformin Sliding scale insulin moderate dose with blood sugar checks every before meals and at bedtime Hypomagnesemia Replace and follow in am HTN Hyperlipidemia Stable resume meds
--- NOTE | 2019-09-17 17:56 | P.HPIM ---
History of Present Illness H&P Date: 09/17/19 Chief Complaint: Intractable N,V Mr. Mckinney was initially seen in consult 07/24, presented with fdc decreased appetite, weight loss, then progressive nausea and vomiting for 1 week. He was febrile, imaging showed evidence of ruptured appendix with surrounding intra-abdominal abscess. CT CAP 07/04/18 showed a 13 x 6 cm inflammatory mass in the right lower to mid abdomen, some enlarged periaortic lymph nodes specific subcentimeter pulmonary nodules. He had surgery 07/[address] Stovall. Operative findings noted in the sacrum with surrounding abscess extending onto the posterior wall of the ascending colon. Due to dense inflammation mobilization of the ascending colon somewhat difficult. The patient underwent drainage of the abscess and right hemicolectomy. Pathology revealed invasive well-differentiated, grade 1 adenocarcinoma 3.5 cm, 2/8 mesenteric lymph nodes were positive for metastasis. There were at least 7 tumor deposits in the serosa. Seen for his first office visit 07/26/18. He had rust syndrome testing, which was negative. PET scan revealed uptake in 2-3 left SC nodes, the largest 1.2 cm, in the 2-3 SUV range. Supraclavicular node biopsy 08/21/18 was positive for adenocarcinoma, colon primary, MSI stable, KRAS was mutated. Started FOLFOX + Avastin ( Mvasi) on 09/25/18, completed 12 cycles 03/25/19. He was started on maintenance Xeloda + Avastin on 05/03/19. He was referred to Rad Onc to consider RT to the left SC area. Repeat imaging was recommended. He had an ER visit on 05/07/19 for abdominal distension and pain. He had a Ct scan and was told that he may have progression. His last office visit was Apr 29, 2019, he moved to [facility]. Per patient, He has been back on treatment, sounds like FOLFOX, he had the oxaliplatin stopped due to neuropathy. He said he had scans about 3 weeks ago. He has now moved back to this area. I discussed with him that recent scans here look as though there may be disease progression. I'm not sure what his last scans in [place] reported. 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 Review of Systems 14 point review of systems is negative except as stated in HPI Past Medical History Past Medical History: Cancer, Diabetes Mellitus, Eye Disorder, Hyperlipidemia, Hypertension, Seizure Disorder, Supraventricular Tachycardia (SVT) Additional Past Medical History / Comment(s): 06/2018 colon cancer with lymph node involvement with chemotherapy last 2-3 weeks ago and had radiation tx to lymph node, NIDDM type II, neuropathy bilateral hands and feet, falls, chronic generalized pain, R eye decreased vision-pt things d/t cataract, sepsis d/t ruptured appendix, iron anemia, History of Any Multi-Drug Resistant Organisms: None Reported Past Surgical History: Appendectomy, Bowel Resection, Hernia Repair, Orthopedic Surgery, Tonsillectomy Additional Past Surgical History / Comment(s): 08/11/18 cervical lymph node bx, exploratory laparotomy/appy and R colectomy, umbilical hernia repair, UVPPP, R knee arthroscopy, port a caths-currently L chest. Past Anesthesia/Blood Transfusion Reactions: Motion Sickness Smoking Status: Former smoker - Past Family History Father Family Medical History: Liver Disease Additional Family Medical History / Comment(s): Father had ETOH abuse. He from cirrhosis. Mother Family Medical History: Congestive Heart Failure (CHF), Pulmonary Embolus Additional Family Medical History / Comment(s): Mother from CHF Medications and Allergies Home Medications Medication Instructions Recorded Confirmed Type Atorvastatin Calcium [Lipitor] 20 mg PO HS 09/14/16 09/17/19 History metFORMIN HCL [Glucophage] 850 mg PO AC-TID 09/14/16 09/17/19 History Atenolol 25 mg PO DAILY 07/04/18 09/17/19 History Lisinopril [Zestril] 10 mg PO HS 07/04/18 09/17/19 History Cholecalciferol (Vitamin D3) 2,000 unit PO DAILY 01/09/19 09/17/19 History [Vitamin D3] DULoxetine HCL [Cymbalta] 120 mg PO DAILY 01/09/19 09/17/19 History Multivitamins, Thera [Multivitamin 1 tab PO DAILY 01/09/19 09/17/19 History (formulary)] Hydrocodone/Acetaminophen [[place] 1 tab PO Q4HR PRN 3 Days #18 tab 09/11/19 09/17/19 Rx 7.5-325] Dexamethasone 8 mg PO DIRECTED PRN 09/17/19 09/17/19 History Ferrous Sulfate [Iron] 325 mg PO TID 09/17/19 09/17/19 History Loperamide [Imodium] 2 - 4 mg PO DIRECTED PRN 09/17/19 09/17/19 History Loratadine [Claritin] 10 mg PO DAILY PRN 09/17/19 09/17/19 History Ondansetron HCl [Zofran] 8 mg PO BID PRN 09/17/19 09/17/19 History Prochlorperazine [Compazine] 10 mg PO Q6H PRN 09/17/19 09/17/19 History risperiDONE [RisperDAL] 1 mg PO BID 09/17/19 09/17/19 History Allergies Allergy/AdvReac Type Severity Reaction Status Date / Time carbamazepine [From Tegretol] Allergy Severe Anaphylaxis Verified 09/17/19 09:15 lithium [[place]] Allergy Severe Anaphylaxis Verified 09/17/19 09:15 shellfish derived Allergy Severe Anaphylaxis Verified 09/17/19 09:15 aspartame Allergy SWELLING Verified 09/17/19 09:15 OF THROAT citalopram hydrobromide AdvReac Intermediate Nausea & Verified 09/17/19 09:15 [From Celexa] Vomiting Physical Exam Vitals: Vital Signs Temp Pulse Pulse Resp BP BP Pulse Ox 09/17/19 15:03 98.3 F 91 16 143/86 100 09/17/19 14:00 97.0 F L 95 16 142/85 99 09/17/19 05:35 97.3 F L 89 16 105/88 98 09/16/19 23:00 102 H 20 149/85 99 09/16/19 21:30 94 20 148/89 98 09/16/19 19:30 98.0 F 99 20 122/88 100 Intake and Output 09/17/19 09/17/19 09/17/19 06:59 14:59 22:59 Other: Weight 111.584 kg - Constitutional General appearance: cooperative, no acute distress, obese - EENT Eyes: anicteric sclerae ENT: hearing grossly normal, normal oropharynx - Neck Neck: no lymphadenopathy - Respiratory Respiratory: bilateral: diminished - Cardiovascular Rhythm: regular Heart sounds: normal: S1, S2 Abnormal Heart Sounds: no systolic murmur, no diastolic murmur, no rub, no S3 Gallop, no S4 Gallop, no click, no other leg Peripheral Edema: bilateral: None - Gastrointestinal General gastrointestinal: no absent bowel sounds, no decreased bowel sounds, no distended, no hepatomegaly, no hyperactive bowel sounds, normal bowel sounds, no organomegaly, no rigid, no scaphoid, soft, no splenomegaly, tenderness (epigastric area), no umbilical hernia, no ventral hernia - Integumentary Integumentary: normal - Musculoskeletal Musculoskeletal: strength equal bilaterally - Psychiatric Psychiatric: A&O x's 3, appropriate affect, intact judgment & insight Results CBC & Chem 7: 09/16/19 21:00 09/16/19 21:00 Labs: Abnormal Lab Results - Last 24 Hours (Table) 09/16/19 09/16/19 09/16/19 Range/Units 21:00 21:00 21:00 WBC 12.2 H (3.8-10.6) k/uL Hgb 11.6 L (13.0-17.5) gm/dL Hct 36.0 L (39.0-53.0) % MCV 76.9 L (80.0-100.0) fL MCH 24.7 L (25.0-35.0) pg RDW 16.3 H (11.5-15.5) % Plt Count 533 H (150-450) k/uL Neutrophils # 9.8 H (1.3-7.7) k/uL Lymphocytes # 0.8 L (1.0-4.8) k/uL Sodium 135 L (137-145) mmol/L Creatinine 0.63 L (0.66-1.25) mg/dL Glucose 133 H (74-99) mg/dL Magnesium 1.5 L (1.6-2.3) mg/dL Alkaline Phosphatase 282 H (38-126) U/L Total Protein 5.9 L (6.3-8.2) g/dL Albumin 2.9 L (3.5-5.0) g/dL Urine Protein Trace H (Negative) Urine Ketones Trace H (Negative) Comments: KUB x-ray report reviewed Thrombosis Risk Factor Assmnt - DVT/VTE Prophylaxis DVT/VTE Prophylaxis: Pharmacologic Prophylaxis ordered - Choose All That Apply Any of the Below Risk Factors Present?: Yes Each Factor Represents 1 point: Age 41-60 years, Obesity (BMI >25) Other Risk Factors: Yes Each Risk Factor Represents 2 Points: Malignancy Other congenital or acquired thrombophilia - If yes, enter type in comment: No Thrombosis Risk Factor Assessment Total Risk Factor Score: 4 Thrombosis Risk Factor Assessment Level: Moderate Risk Assessment and Plan (1) Intractable nausea and vomiting Narrative/Plan: Hydration, antiemetics and electrolyte replacement seemed to have helped patients substantially. Abdominal KUB x-ray no evidence Acute abdomen Current Visit: Yes Status: Acute Priority: High Code(s): R11.2 - NAUSEA WITH VOMITING, UNSPECIFIED SNOMED Code(s): 191081523 (2) Adenocarcinoma, colon Narrative/Plan: Have requested scans, office visit notes and treatment summary from [facility]. I did talk with the patient about the scans that were done here on 09/10, there certainly seems to be disease progression. Will await his prior scans to compare Current Visit: No Status: Chronic Priority: High Code(s): C18.9 - MALIGNANT NEOPLASM OF COLON, UNSPECIFIED SNOMED Code(s): 562128232 (3) Cancer associated pain Narrative/Plan: Currently managed on [place]. Current Visit: No Status: Chronic Priority: Medium Code(s): G89.3 - NEOPLASM RELATED PAIN (ACUTE) (CHRONIC) SNOMED Code(s): 67292453488139 Plan: Hydration, supportive medications, labs in the a.m. Hope to discharge in the a.m. Patient states he is moved back to the area. Patient has a follow-up appointment with Dr. Whalen on 09/21. He is asking for multiple medication refills. I will run a MAPS, review and see what medications are due to be refilled. Patient will be provided with temporary scrips, full prescriptions will not be given until his follow-up with Dr. Whalen
[2019-09-17] MEDS: risperiDONE 1 MG TAB PO SCH (20:06)
[2019-09-17] MEDS: FERROUS SULFATE 325 MG TAB PO SCH (20:06)
[2019-09-17] MEDS: HYDROcodone/APAP 7.5-325MG 1 EACH TAB PO PRN ×2 (20:06→22:48)
[2019-09-17] MEDS ORDERED: LISINOPRIL 10 MG TAB PO SCH (21:00)
[2019-09-17] MEDS ORDERED: ATORVASTATIN 20 MG TAB PO SCH (21:00)
[2019-09-17 21:12] LABS: Glucose,Whole Blood 140 mg/dL (75-99)
[2019-09-17] MEDS: INSULIN ASPART (NovoLOG) 100 UNIT/ML VIAL SQ SCH (22:43)
[2019-09-18] MEDS ORDERED: MELATONIN 5 MG TABLET PO PRN (00:10)
[2019-09-18] MEDS ORDERED: MELATONIN 5 MG TABLET ONE (02:00)
[2019-09-18] MEDS ORDERED: PROCHLORPERAZINE 10 MG TAB ONE (02:00)
[2019-09-18] MEDS ORDERED: HYDROcodone/APAP 7.5-325MG 1 EACH TAB ONE (02:00)
[2019-09-18] MEDS: SODIUM CHLORIDE 0.9% 1,000 ML IV SCH (05:20)
[2019-09-18] MEDS: HYDROcodone/APAP 7.5-325MG 1 EACH TAB PO PRN ×2 (05:23→12:11)
[2019-09-18 06:21] LABS: Basophils % (A) 0 %; Eosinophils # (A) 0.3 k/uL (0-0.7); Eosinophils % (A) 3 %; HCT 36.1 % (39.0-53.0); HGB 11.6 gm/dL (13.0-17.5); Hypochromasia Slight; Lymphocytes # (A) 0.8 k/uL (1.0-4.8); Lymphocytes % (A) 7 %; MCH 25.7 pg (25.0-35.0); MCHC 32.1 g/dL (31.0-37.0); Mean Platelet Volume 6.4; Monocytes # (A) 0.7 k/uL (0-1.0); Monocytes % (A) 6 %; Neutrophils # (A) 9.1 k/uL (1.3-7.7); Neutrophils % (A) 82 %; Platelet Count 442 k/uL (150-450); RBC 4.52 m/uL (4.30-5.90)
[2019-09-18 06:30] LABS: Glucose,Whole Blood 158 mg/dL (75-99)
[2019-09-18 07:00] LABS: ALT 17 U/L (4-49); AST 22 U/L (17-59); African American GFR (CKD) >90 (>60 ml/min/1.73 sqM); Albumin 2.5 g/dL (3.5-5.0); Alkaline Phosphatase 241 U/L (38-126); Anion Gap 6 mmol/L; Blood Urea Nitrogen 5 mg/dL (9-20); Calcium 8.5 mg/dL (8.4-10.2); Carbon Dioxide 26 mmol/L (22-30); Chloride 101 mmol/L (98-107); Glucose 134 mg/dL (74-99); Magnesium 1.5 mg/dL (1.6-2.3); Non-African American GFR(CKD) >90 (>60 ml/min/1.73 sqM); Phosphorus 4.3 mg/dL (2.5-4.5); Potassium 3.9 mmol/L (3.5-5.1); Sodium 133 mmol/L (137-145); Total Bilirubin 0.6 mg/dL (0.2-1.3); Total Protein 5.3 g/dL (6.3-8.2)
[2019-09-18] MEDS: FERROUS SULFATE 325 MG TAB PO SCH (07:33)
[2019-09-18] MEDS: risperiDONE 1 MG TAB PO SCH (07:34)
[2019-09-18] MEDS: INSULIN ASPART (NovoLOG) 100 UNIT/ML VIAL SQ SCH ×2 (07:59→12:26)
[2019-09-18 08:45] VITALS: BP 154/96; PULSE 110; RESP 14; TEMP 97.4
[2019-09-18] MEDS ORDERED: ATENOLOL 25 MG TAB PO SCH (09:00)
[2019-09-18] MEDS ORDERED: CHOLECALCIFEROL 1,000 UNIT TAB PO SCH (09:00)
[2019-09-18] MEDS: MAGNESIUM SULFATE-D5W PMX 1 GM in DEXTROSE/WATER 1 100ML.BAG IVPB SCH ×2 (09:03→10:22)
[2019-09-18 11:51] LABS: Glucose,Whole Blood 158 mg/dL (75-99)
--- NOTE | 2019-09-18 12:28 | P.DS ---
Providers Date of admission: 09/17/19 01:02 Expected date of discharge: 09/18/19 Attending physician: Berlin Aguillon Consults: 09/17/19 13:01 Consult Physician Urgent Consulting Provider: Henry Donaldson Consult Reason/Comments: medical management Do you want consulting provider notified?: Yes Primary care physician: Stated None - Discharge Diagnosis(es) (1) Intractable nausea and vomiting Current Visit: Yes Status: Acute Priority: High (2) Adenocarcinoma, colon Current Visit: No Status: Chronic Priority: High (3) Cancer associated pain Current Visit: No Status: Chronic Priority: Medium Hospital Course: Patient admitted with intractable nausea and vomiting. He was provided with supportive medications, electrolyte supplementation for magnesium level of 1.5, moderate improvement in his symptoms, he is at his baseline. Patient has not vomited since admission. Current analgesic regimen is adequate. He has tolerated oral intake, he is able to ambulate independently. No fevers, cough, difficulty breathing increased above baseline in his abdominal discomfort, b leeding, swelling. He feels that he is able to go home and care for himself. Internal Medicine agrees with discharged after electrolyte replacement Assessment: Well-developed, adequately nourished, A&O 4, patient is in good spirits, no oral thrush or irritation, bilateral breath sounds are clear to auscultation, respiratory effort unlabored, S1, S2, no murmur, gallop or rub, bowel sounds are positive, epigastric discomfort is minimal, bowel sounds positive, no lower extremity swelling. Pertinent Studies: KUB x-ray-no acute abdominal process Procedures: None Patient Condition at Discharge: Fair Plan - Discharge Summary Discharge Rx Participant: No New Discharge Prescriptions: No Action Atorvastatin Calcium [Lipitor] 20 mg PO HS metFORMIN HCL [Glucophage] 850 mg PO AC-TID Lisinopril [Zestril] 10 mg PO HS Atenolol 25 mg PO DAILY Multivitamins, Thera [Multivitamin (formulary)] 1 tab PO DAILY DULoxetine HCL [Cymbalta] 120 mg PO DAILY Cholecalciferol (Vitamin D3) [Vitamin D3] 2,000 unit PO DAILY Hydrocodone/Acetaminophen [[place] 7.5-325] 1 tab PO Q4HR PRN 3 Days #18 tab PRN Reason: Pain Dexamethasone 8 mg PO DIRECTED PRN PRN Reason: AFTER CHEMO Ferrous Sulfate [Iron] 325 mg PO TID Loperamide [Imodium] 2 - 4 mg PO DIRECTED PRN PRN Reason: Diarrhea Ondansetron HCl [Zofran] 8 mg PO BID PRN PRN Reason: Nausea Prochlorperazine [Compazine] 10 mg PO Q6H PRN PRN Reason: Nausea risperiDONE [RisperDAL] 1 mg PO BID Loratadine [Claritin] 10 mg PO DAILY PRN PRN Reason: Allergy Symptoms Discharge Medication List Atorvastatin Calcium [Lipitor] 20 mg PO HS 09/14/16 [History] metFORMIN HCL [Glucophage] 850 mg PO AC-TID 09/14/16 [History] Atenolol 25 mg PO DAILY 07/04/18 [History] Lisinopril [Zestril] 10 mg PO HS 07/04/18 [History] Cholecalciferol (Vitamin D3) [Vitamin D3] 2,000 unit PO DAILY 01/09/19 [History] DULoxetine HCL [Cymbalta] 120 mg PO DAILY 01/09/19 [History] Multivitamins, Thera [Multivitamin (formulary)] 1 tab PO DAILY 01/09/19 [History] Hydrocodone/Acetaminophen [[place] 7.5-325] 1 tab PO Q4HR PRN 3 Days #18 tab 09/11/19 [Rx] Dexamethasone 8 mg PO DIRECTED PRN 09/17/19 [History] Ferrous Sulfate [Iron] 325 mg PO TID 09/17/19 [History] Loperamide [Imodium] 2 - 4 mg PO DIRECTED PRN 09/17/19 [History] Loratadine [Claritin] 10 mg PO DAILY PRN 09/17/19 [History] Ondansetron HCl [Zofran] 8 mg PO BID PRN 09/17/19 [History] Prochlorperazine [Compazine] 10 mg PO Q6H PRN 09/17/19 [History] risperiDONE [RisperDAL] 1 mg PO BID 09/17/19 [History] Follow up Appointment(s)/Referral(s): None,Stated [Primary Care Provider] - 1-2 days Daniele Whalen MD [STAFF PHYSICIAN] - 09/22/19 10:30 am Activity/Diet/Wound Care/Special Instructions: Diet as tolerated. Encouraged electrolyte supplementation. Patient verbalized understanding Medicate for nausea and diarrhea Medications reviewed. Patient understands only temporaries prescriptions can be given on discharge from the hospital. 3 days Rx for [place] (MAPS reviewed) to patient's [facility] pharmacy on . Patient has started talking and patient/provider agreement for narcotics already signed in the office. Pending Studies Pending Results: None
[2019-09-18] MEDS ORDERED: DULoxetine HCL 60 MG CAPSULE.DR PO SCH (21:00)
== END 2019-09-18 13:33 | disposition home or self-care (01) ==
LOC: EC 19:25 → 5NMEDONC 09-17 01:02 → 1SOBS 09-17 16:02
PROVIDERS: ADMIT Internal Medicine Hematology & Oncology; ATTEND Internal Medicine Hematology & Oncology
DX: R11.2 Nausea with vomiting, unspecified (principal); C18.9 Malignant neoplasm of colon, unspecified; C77.9 Secondary and unspecified malignant neoplasm of lymph node, unspecified; G89.3 Neoplasm related pain (acute) (chronic); E83.42 Hypomagnesemia; M54.5 Low back pain; G62.2 Polyneuropathy due to other toxic agents; T45.1X5A Adverse effect of antineoplastic and immunosuppressive drugs, initial encounter; E11.42 Type 2 diabetes mellitus with diabetic polyneuropathy; F25.9 Schizoaffective disorder, unspecified; F31.9 Bipolar disorder, unspecified; I10 Essential (primary) hypertension; G40.909 Epilepsy, unspecified, not intractable, without status epilepticus; E78.5 Hyperlipidemia, unspecified; I47.1 Supraventricular tachycardia; H54.7 Unspecified visual loss; H26.9 Unspecified cataract; R91.8 Other nonspecific abnormal finding of lung field; D50.9 Iron deficiency anemia, unspecified; E66.9 Obesity, unspecified; Z68.33 Body mass index [BMI] 33.0-33.9, adult; Z03.818 Encounter for observation for suspected exposure to other biological agents ruled out; Z79.891 Long term (current) use of opiate analgesic; Z79.4 Long term (current) use of insulin; Z79.899 Other long term (current) drug therapy; Z88.8 Allergy status to other drugs, medicaments and biological substances; Z91.013 Allergy to seafood; Z95.828 Presence of other vascular implants and grafts; Z87.891 Personal history of nicotine dependence; Z92.3 Personal history of irradiation; Z86.19 Personal history of other infectious and parasitic diseases; Z90.49 Acquired absence of other specified parts of digestive tract; Z82.49 Family history of ischemic heart disease and other diseases of the circulatory system; Z81.1 Family history of alcohol abuse and dependence; Z83.79 Family history of other diseases of the digestive system
CPT/HCPCS: 96366 ×2; 96376 ×3; 96361 ×2; 96365; 96375 ×2; 99285; 36415; 80053 ×2; 83690; 83735 ×2; 84100; 85025 ×2; 81003; 74018; G0378 ×3; U0003; S0183; J1200; J2765; J2405 ×2; J1170; J3475 ×2

== ENCOUNTER 2019-10-01 22:53 | Observation (INO) | payer MEDICARE, OTHER ==
[2019-10-01] MEDS ORDERED: PANTOPRAZOLE 40 MG/10 ML VIAL IVP STA (23:42)
[2019-10-01] MEDS ORDERED: SODIUM CHLORIDE 0.9% 500 ML 500 ML IV STA (23:42)
[2019-10-01] MEDS ORDERED: SODIUM CHLORIDE 0.9% 1,000 ML IV STA ×2 (23:42)
[2019-10-01] MEDS ORDERED: HYDROmorphone 1 MG/ML 1 ML SYRINGE IVP STA (23:42)
[2019-10-01] MEDS ORDERED: ONDANSETRON 4 MG/2 ML VIAL IVP STA (23:42)
[2019-10-02 00:09] LABS: Basophils # (A) 0.1 k/uL (0-0.2); Basophils % (A) 1 %; Eosinophils # (A) 0.3 k/uL (0-0.7); Eosinophils % (A) 2 %; HCT 36.2 % (39.0-53.0); HGB 11.7 gm/dL (13.0-17.5); Lymphocytes # (A) 0.6 k/uL (1.0-4.8); Lymphocytes % (A) 4 %; MCHC 32.4 g/dL (31.0-37.0); MCV 77.4 fL (80.0-100.0); Mean Platelet Volume 6.7; Microcytosis Slight; Monocytes # (A) 1.4 k/uL (0-1.0); Monocytes % (A) 9 %; Neutrophils # (A) 13.6 k/uL (1.3-7.7); Neutrophils % (A) 84 %; Platelet Count 573 k/uL (150-450); RBC 4.68 m/uL (4.30-5.90); RDW 15.9 % (11.5-15.5); WBC 16.2 k/uL (3.8-10.6)
[2019-10-02 00:23] LABS: ALT 26 U/L (4-49); AST 35 U/L (17-59); Acetaminophen <10.0 ug/mL; African American GFR (CKD) >90 (>60 ml/min/1.73 sqM); Albumin 2.9 g/dL (3.5-5.0); Alkaline Phosphatase 308 U/L (38-126); Anion Gap 9 mmol/L; Blood Urea Nitrogen 14 mg/dL (9-20); Calcium 8.6 mg/dL (8.4-10.2); Carbon Dioxide 22 mmol/L (22-30); Chloride 98 mmol/L (98-107); Creatine Kinase 42 U/L (55-170); Glucose 199 mg/dL (74-99); Lipase 147 U/L (23-300); Non-African American GFR(CKD) >90 (>60 ml/min/1.73 sqM); Potassium 3.5 mmol/L (3.5-5.1); Sodium 129 mmol/L (137-145); Total Bilirubin 0.4 mg/dL (0.2-1.3); Total Protein 5.7 g/dL (6.3-8.2)
[2019-10-02 00:27] LABS: Amylase <30 U/L (30-110)
--- NOTE | 2019-10-02 00:40 | ED ---
Abdominal Pain HPI - General Chief Complaint: Abdominal Pain Stated Complaint: Abdominal Pain Time Seen by Provider: 10/01/19 23:41 Source: patient, RN notes reviewed, old records reviewed Mode of arrival: ambulatory Limitations: no limitations - History of Present Illness Initial Comments: This is a 44-year-old male DF for evaluation patient Dese for evaluation of multiple complaints abdominal pain nausea no current active vomiting but has had some vomiting no fever. Patient has no known significant surgical history feels he has some gallbladder disease patient does follow with oncology no primary care currently has been taking a lot of Tylenol with worsening symptoms. Patient feels like his heart is racing MD Complaint: abdominal pain -: days(s) Location: diffuse, periumbilical, epigastric, suprapubic Radiation: epigastric, suprapubic Migration to: no migration Severity: moderate Severity scale (1-10): 7 Quality: cramping, aching Consistency: constant Improves With: nothing Worsens With: nothing Associated Symptoms: nausea, anorexia - Related Data Home Medications Medication Instructions Recorded Confirmed Atorvastatin Calcium [Lipitor] 20 mg PO HS 09/14/16 09/17/19 metFORMIN HCL [Glucophage] 850 mg PO AC-TID 09/14/16 09/17/19 Atenolol 25 mg PO DAILY 07/04/18 09/17/19 Lisinopril [Zestril] 10 mg PO HS 07/04/18 09/17/19 Cholecalciferol (Vitamin D3) 2,000 unit PO DAILY 01/09/19 09/17/19 [Vitamin D3] DULoxetine HCL [Cymbalta] 120 mg PO DAILY 01/09/19 09/17/19 Multivitamins, Thera [Multivitamin 1 tab PO DAILY 01/09/19 09/17/19 (formulary)] Dexamethasone 8 mg PO DIRECTED PRN 09/17/19 09/17/19 Ferrous Sulfate [Iron] 325 mg PO TID 09/17/19 09/17/19 Loperamide [Imodium] 2 - 4 mg PO DIRECTED PRN 09/17/19 09/17/19 Loratadine [Claritin] 10 mg PO DAILY PRN 09/17/19 09/17/19 Ondansetron HCl [Zofran] 8 mg PO BID PRN 09/17/19 09/17/19 Prochlorperazine [Compazine] 10 mg PO Q6H PRN 09/17/19 09/17/19 risperiDONE [RisperDAL] 1 mg PO BID 09/17/19 09/17/19 Previous Rx's Medication Instructions Recorded Hydrocodone/Acetaminophen [[place] 1 tab PO Q4HR PRN 3 Days #18 tab 09/18/19 7.5-325] Allergies Allergy/AdvReac Type Severity Reaction Status Date / Time carbamazepine [From Tegretol] Allergy Severe Anaphylaxis Verified 10/01/19 23:07 lithium [[place]] Allergy Severe Anaphylaxis Verified 10/01/19 23:07 shellfish derived Allergy Severe Anaphylaxis Verified 10/01/19 23:07 aspartame Allergy SWELLING Verified 10/01/19 23:07 OF THROAT citalopram hydrobromide AdvReac Intermediate Nausea & Verified 10/01/19 23:07 [From Celexa] Vomiting Review of Systems ROS Statement: Those systems with pertinent positive or pertinent negative responses have been documented in the HPI. ROS Other: All systems not noted in ROS Statement are negative. Past Medical History Past Medical History: Cancer, Diabetes Mellitus, Eye Disorder, Hyperlipidemia, Hypertension, Seizure Disorder, Supraventricular Tachycardia (SVT) Additional Past Medical History / Comment(s): 06/2018 colon cancer with lymph node involvement with chemotherapy last 2-3 weeks ago and had radiation tx to lymph node, NIDDM type II, neuropathy bilateral hands and feet, falls, chronic generalized pain, R eye decreased vision-pt things d/t cataract, sepsis d/t ruptured appendix, iron anemia, History of Any Multi-Drug Resistant Organisms: None Reported Past Surgical History: Appendectomy, Bowel Resection, Hernia Repair, Orthopedic Surgery, Tonsillectomy Additional Past Surgical History / Comment(s): 08/11/18 cervical lymph node bx, exploratory laparotomy/appy and R colectomy, umbilical hernia repair, UVPPP, R knee arthroscopy, port a caths-currently L chest. Past Anesthesia/Blood Transfusion Reactions: Motion Sickness Past Psychological History: Bipolar, Depression, Schizoaffective Disorder, Schizophrenia Smoking Status: Former smoker Past Alcohol Use History: None Reported Past Drug Use History: Marijuana - Past Family History Father Family Medical History: Liver Disease Additional Family Medical History / Comment(s): Father had ETOH abuse. He from cirrhosis. Mother Family Medical History: Congestive Heart Failure (CHF), Pulmonary Embolus Additional Family Medical History / Comment(s): Mother from CHF General Exam Limitations: no limitations General appearance: alert, in no apparent distress Head exam: Present: atraumatic, normocephalic, normal inspection Eye exam: Present: normal appearance, PERRL, EOMI. Absent: scleral icterus, conjunctival injection, periorbital swelling ENT exam: Present: normal exam, mucous membranes moist Neck exam: Present: normal inspection. Absent: tenderness, meningismus, lymphadenopathy Respiratory exam: Present: normal lung sounds bilaterally. Absent: respiratory distress, wheezes, rales, rhonchi, stridor Cardiovascular Exam: Present: normal rhythm, tachycardia, normal heart sounds. Absent: systolic murmur, diastolic murmur, rubs, gallop, clicks GI/Abdominal exam: Present: soft, normal bowel sounds. Absent: distended, tenderness, guarding, rebound, rigid Extremities exam: Present: normal inspection, full ROM, normal capillary refill. Absent: tenderness, pedal edema, joint swelling, calf tenderness Back exam: Present: normal inspection Neurological exam: Present: alert, oriented X3, CN II-XII intact Psychiatric exam: Present: normal affect, normal mood Skin exam: Present: warm, dry, intact, normal color. Absent: rash Course Vital Signs 10/01/19 10/02/19 23:02 01:50 Temperature 98.8 F Pulse Rate 130 H 103 H Respiratory 20 20 Rate Blood Pressure 135/92 151/74 O2 Sat by Pulse 97 100 Oximetry - Reevaluation(s) Reevaluation #1: 10/02/19 02:38 Medical record is reviewed Reevaluation #2: 10/02/19 02:38 patient has pain control - Consultations Consultation #1: spoke w Sound agreeable admit Medical Decision Making - Medical Decision Making 44 male to the ER for evaluation patient presents with persistent abdominal pain, patient has known cancer uncontrolled cancer pain. [place] for pain control hydration - Lab Data Result diagrams: 10/01/19 23:44 10/01/19 23:44 Lab Results 10/01/19 10/01/19 10/01/19 Range/Units 23:44 23:44 23:44 WBC 16.2 H (3.8-10.6) k/uL RBC 4.68 (4.30-5.90) m/uL Hgb 11.7 L (13.0-17.5) gm/dL Hct 36.2 L (39.0-53.0) % MCV 77.4 L (80.0-100.0) fL MCH 25.0 (25.0-35.0) pg MCHC 32.4 (31.0-37.0) g/dL RDW 15.9 H (11.5-15.5) % Plt Count 573 H (150-450) k/uL Neutrophils % 84 % Lymphocytes % 4 % Monocytes % 9 % Eosinophils % 2 % Basophils % 1 % Neutrophils # 13.6 H (1.3-7.7) k/uL Lymphocytes # 0.6 L (1.0-4.8) k/uL Monocytes # 1.4 H (0-1.0) k/uL Eosinophils # 0.3 (0-0.7) k/uL Basophils # 0.1 (0-0.2) k/uL Microcytosis Slight Sodium 129 L (137-145) mmol/L Potassium 3.5 (3.5-5.1) mmol/L Chloride 98 (98-107) mmol/L Carbon Dioxide 22 (22-30) mmol/L Anion Gap 9 mmol/L BUN 14 (9-20) mg/dL Creatinine 0.69 (0.66-1.25) mg/dL Est GFR (CKD-EPI)AfAm >90 (>60 ml/min/1.73 sqM) Est GFR (CKD-EPI)NonAf >90 (>60 ml/min/1.73 sqM) Glucose 199 H (74-99) mg/dL Lactic Ac Sepsis Rflx Plasma Lactic Acid Chay 2.9 H* (0.7-2.0) mmol/L Calcium 8.6 (8.4-10.2) mg/dL Total Bilirubin 0.4 (0.2-1.3) mg/dL AST 35 (17-59) U/L ALT 26 (4-49) U/L Alkaline Phosphatase 308 H (38-126) U/L Creatine Kinase 42 L (55-170) U/L Total Protein 5.7 L (6.3-8.2) g/dL Albumin 2.9 L (3.5-5.0) g/dL Amylase <30 L (30-110) U/L Lipase 147 (23-300) U/L Urine Color Urine Appearance (Clear) Urine pH (5.0-8.0) Ur Specific [place] (1.001-1.035) Urine Protein (Negative) Urine Glucose (UA) (Negative) Urine Ketones (Negative) Urine Blood (Negative) Urine Nitrite (Negative) Urine Bilirubin (Negative) Urine Urobilinogen (<2.0) mg/dL Ur Leukocyte Esterase (Negative) Urine RBC (0-5) /hpf Urine WBC (0-5) /hpf Ur Squamous Epith Cells (0-4) /hpf Hyaline Casts (0-2) /lpf Urine Mucus (None) /hpf Acetaminophen <10.0 ug/mL 10/02/19 10/02/19 Range/Units 00:27 01:21 WBC (3.8-10.6) k/uL RBC (4.30-5.90) m/uL Hgb (13.0-17.5) gm/dL Hct (39.0-53.0) % MCV (80.0-100.0) fL MCH (25.0-35.0) pg MCHC (31.0-37.0) g/dL RDW (11.5-15.5) % Plt Count (150-450) k/uL Neutrophils % % Lymphocytes % % Monocytes % % Eosinophils % % Basophils % % Neutrophils # (1.3-7.7) k/uL Lymphocytes # (1.0-4.8) k/uL Monocytes # (0-1.0) k/uL Eosinophils # (0-0.7) k/uL Basophils # (0-0.2) k/uL Microcytosis Sodium (137-145) mmol/L Potassium (3.5-5.1) mmol/L Chloride (98-107) mmol/L Carbon Dioxide (22-30) mmol/L Anion Gap mmol/L BUN (9-20) mg/dL Creatinine (0.66-1.25) mg/dL Est GFR (CKD-EPI)AfAm (>60 ml/min/1.73 sqM) Est GFR (CKD-EPI)NonAf (>60 ml/min/1.73 sqM) Glucose (74-99) mg/dL Lactic Ac Sepsis Rflx Y Plasma Lactic Acid Chay (0.7-2.0) mmol/L Calcium (8.4-10.2) mg/dL Total Bilirubin (0.2-1.3) mg/dL AST (17-59) U/L ALT (4-49) U/L Alkaline Phosphatase (38-126) U/L Creatine Kinase (55-170) U/L Total Protein (6.3-8.2) g/dL Albumin (3.5-5.0) g/dL Amylase (30-110) U/L Lipase (23-300) U/L Urine Color Yellow Urine Appearance Clear (Clear) Urine pH 6.0 (5.0-8.0) Ur Specific [place] >1.050 H (1.001-1.035) Urine Protein 1+ H (Negative) Urine Glucose (UA) 1+ H (Negative) Urine Ketones Negative (Negative) Urine Blood Negative (Negative) Urine Nitrite Negative (Negative) Urine Bilirubin Negative (Negative) Urine Urobilinogen 3.0 (<2.0) mg/dL Ur Leukocyte Esterase Negative (Negative) Urine RBC 1 (0-5) /hpf Urine WBC 1 (0-5) /hpf Ur Squamous Epith Cells 1 (0-4) /hpf Hyaline Casts 1 (0-2) /lpf Urine Mucus Moderate H (None) /hpf Acetaminophen ug/mL - EKG Data -: EKG Interpreted by Me (EKG shows sinus tachycardia rate 120 by mouth 160 QRS 92 QTC 466) - Radiology Data Radiology results: report reviewed (CT of the abdomen and pelvis does show new tumors), image reviewed Disposition Clinical Impression: Adenocarcinoma, colon, Cancer associated pain, Abdominal pain Disposition: ADMITTED IP TO THIS [facility] Condition: Fair Is patient prescribed a controlled substance at d/c from ED?: No
--- NOTE | 2019-10-02 00:45 | XR ---
EXAMINATION TYPE: XR KUB DATE OF EXAM: 10/02/2019 COMPARISON: 09/16/2019 HISTORY: Abdominal pain TECHNIQUE: 2 views upright FINDINGS: There is no sign of intestinal obstruction or pneumoperitoneum. Fecal pattern is normal. Carlita ng bases are clear. There are multiple surgical clips in the pelvis. There is no evidence of a mass. I see no definite renal calculus. IMPRESSION: Nonacute abdomen. No change.
--- NOTE | 2019-10-02 01:36 | CT ---
EXAMINATION TYPE: CT abdomen pelvis w con DATE OF EXAM: 10/02/2019 COMPARISON: 09/11/2019 HISTORY: left flank pain CT DLP: 2170.1 mGycm Automated exposure control for dose reduction was used. CONTRAST: Performed with IV Contrast, patient injected with 100 mL of Isovue 300. Lung bases are clear. There is no pleural effusion. Heart size is normal. There is no pericardial eff usion. There are multiple hypodense masses throughout the liver that measure up to 5 cm. Spleen is intact. T here is no evidence of pancreatic mass. There is minimal peripancreatic retroperitoneal edema. There is upper abdominal ventral hernia that contains fat. Gallbladder appears normal. Bile ducts are not d ilated. There is no adrenal mass. Kidneys show satisfactory contrast opacification. There is no hydronephrosi s. Ureters are not dilated. There is no retroperitoneal adenopathy. There are surgical clips in the a nterior abdomen apparently from hernia surgery. Bladder distends smoothly. There is no inguinal hernia. There is no free fluid in the pelvis. There i s no evidence of free air. There is no ascites. There is no sign of a bowel obstruction. There is ile ocolic anastomosis in the right upper quadrant. There is 3.5 cm irregular slightly spiculated mass involving the small bowel mesentery in the right m id abdomen on axial image 52 Lumbar spine is intact. There is no compression fracture. Bony pelvis appears intact. IMPRESSION: Extensive liver lesions consistent with metastatic disease appear slightly increased compared to rece nt CT scan. Small bowel mesenteric mass in the right mid abdomen suspicious for tumor and appears new compared to the old PET CT scan of 05/17/2019.
[2019-10-02 01:43] LABS: Appearance,Urine Clear (Clear); Bilirubin,Urine Negative (Negative); Blood,Urine Negative (Negative); Color,Urine Yellow; Glucose,Urine (UA) 1+ (Negative); Hyaline Casts,Urine 1 /lpf (0-2); Ketones,Urine Negative (Negative); Leukocyte Esterase,Urine Negative (Negative); Mucus,Urine Moderate /hpf; Nitrite,Urine Negative (Negative); Protein,Urine 1+ (Negative); RBC,Urine 1 /hpf (0-5); Squamous Epithelial Cell,Urine 1 /hpf (0-4); WBC,Urine 1 /hpf (0-5)
[2019-10-02 01:45] LABS: Specific Gravity,Urine >1.050 (1.001-1.035)
[2019-10-02] MEDS ORDERED: ONDANSETRON 4 MG/2 ML VIAL IVP PRN (01:52)
[2019-10-02] MEDS ORDERED: KETOROLAC 30 MG/ML 1 ML VIAL IVP STA (01:52)
[2019-10-02] MEDS: HYDROmorphone 1 MG/ML 1 ML SYRINGE IVP PRN ×3 (03:07→20:59)
[2019-10-02] MEDS: LORazepam 2 MG/ML INJ IV PRN (03:51)
--- NOTE | 2019-10-02 05:19 | P.HPIM ---
History of Present Illness H&P Date: 10/02/19 The patient is a 44-year-old male with a PMH of colon cancer with metastases to the liver diagnosed June 2018 (following with Dr. Whalen, undergoing chemotherapy) type II DM, , hypertension, hyperlipidemia, and seizure disorder who presented to the ED with complaints of abdominal pain, nausea, vomiting. He reports that his symptoms started yesterday in the evening, with a deep central abdominal king n, 6 out of 10, nonradiating, with no alleviating or exacerbating features. He notes that he subsequently had 4-5 episodes of nonbloody vomitus though denied diarrhea. He denied chest pain, shortness of fever, chills, headache, or dizziness. In the ED, an abdominal CT revealed extensive liver metastatic disease with a new small bowel mesenteric mass in the right midabdomen. EKG revealed sinus a cardiac 120 bpm with no acute ST/T-wave changes noted. Laboratory evaluation revealed a WBC count of 16.2, hemoglobin 11.7, platelets 573, sodium 129, lactic acid 2.9, potassium 3.5, BUN 14, creatinine 0.69, and glucose 199. Review of Systems Pertinent positives and negatives as discussed in HPI, a complete review of systems was performed and all other systems are negative. Past Medical History Past Medical History: Cancer, Diabetes Mellitus, Eye Disorder, Hyperlipidemia, Hypertension, Seizure Disorder, Supraventricular Tachycardia (SVT) Additional Past Medical History / Comment(s): 06/2018 colon cancer with lymph node involvement with chemotherapy last 2-3 weeks ago and had radiation tx to lymph node, NIDDM type II, neuropathy bilateral hands and feet, falls, chronic generalized pain, R eye decreased vision-pt things d/t cataract, sepsis d/t ruptured appendix, iron anemia, History of Any Multi-Drug Resistant Organisms: None Reported Past Surgical History: Appendectomy, Bowel Resection, Hernia Repair, Orthopedic Surgery, Tonsillectomy Additional Past Surgical History / Comment(s): 08/11/18 cervical lymph node bx, e xploratory laparotomy/appy and R colectomy, umbilical hernia repair, UVPPP, R knee arthroscopy, port a caths-currently L chest. Past Anesthesia/Blood Transfusion Reactions: Motion Sickness Past Psychological History: Bipolar, Depression, Schizoaffective Disorder, Schizophrenia Smoking Status: Former smoker Past Alcohol Use History: None Reported Past Drug Use History: Marijuana - Past Family History Father Family Medical History: Liver Disease Additional Family Medical History / Comment(s): Father had ETOH abuse. He from cirrhosis. Mother Family Medical History: Congestive Heart Failure (CHF), Pulmonary Embolus Additional Family Medical History / Comment(s): Mother from CHF Medications and Allergies Home Medications Medication Instructions Recorded Confirmed Type Atorvastatin Calcium [Lipitor] 20 mg PO HS 09/14/16 09/17/19 History metFORMIN HCL [Glucophage] 850 mg PO AC-TID 09/14/16 09/17/19 History Atenolol 25 mg PO DAILY 07/04/18 09/17/19 History Lisinopril [Zestril] 10 mg PO HS 07/04/18 09/17/19 History Cholecalciferol (Vitamin D3) 2,000 unit PO DAILY 01/09/19 09/17/19 History [Vitamin D3] DULoxetine HCL [Cymbalta] 120 mg PO DAILY 01/09/19 09/17/19 History Multivitamins, Thera [Multivitamin 1 tab PO DAILY 01/09/19 09/17/19 History (formulary)] Dexamethasone 8 mg PO DIRECTED PRN 09/17/19 09/17/19 History Ferrous Sulfate [Iron] 325 mg PO TID 09/17/19 09/17/19 History Loperamide [Imodium] 2 - 4 mg PO DIRECTED PRN 09/17/19 09/17/19 History Loratadine [Claritin] 10 mg PO DAILY PRN 09/17/19 09/17/19 History Ondansetron HCl [Zofran] 8 mg PO BID PRN 09/17/19 09/17/19 History Prochlorperazine [Compazine] 10 mg PO Q6H PRN 09/17/19 09/17/19 History risperiDONE [RisperDAL] 1 mg PO BID 09/17/19 09/17/19 History Hydrocodone/Acetaminophen [[place] 1 tab PO Q4HR PRN 3 Days #18 tab 09/18/19 Rx 7.5-325] Allergies Allergy/AdvReac Type Severity Reaction Status Date / Time carbamazepine [From Tegretol] Allergy Severe Anaphylaxis Verified 10/01/19 23:07 lithium [[place]] Allergy Severe Anaphylaxis Verified 10/01/19 23:07 shellfish derived Allergy Severe Anaphylaxis Verified 10/01/19 23:07 aspartame Allergy SWELLING Verified 10/01/19 23:07 OF THROAT citalopram hydrobromide AdvReac Intermediate Nausea & Verified 10/01/19 23:07 [From Celexa] Vomiting Physical Exam Vitals: Vital Signs Temp Pulse Resp BP Pulse Ox 10/02/19 03:11 98.7 F 101 H 20 145/92 100 10/02/19 01:50 103 H 20 151/74 100 10/01/19 23:02 98.8 F 130 H 20 135/92 97 Intake and Output 10/01/19 10/01/19 10/02/19 14:59 22:59 06:59 Other: Weight 110.677 kg General: Chronically ill-appearing male, no distress, appears at stated age, obese Derm: no unusual rashes/lesions no unusual ecchymoses, warm, dry Head: atraumatic, normocephalic, symmetric Eyes: EOMI, no lid lag, anicteric sclera, pupils equal round reactive to light ENT: Nose and ears atraumatic, no thrush, no pharyngeal erythema Neck: No thyromegaly, no cervical lymphadenopathy, trachea midline, supple Mouth: no lip lesion, mucus membranes moist Cardiovascular: S1S2 reg, no murmur, positive posterior tibial pulse bilateral, no edema, capillary refill less than 2 seconds Lungs: CTA bilateral, no rhonchi, no rales , no accessory muscle use Abdominal: soft, nontender to palpation, no guarding, no appreciable organomegaly, normal bowel sounds Ext: no gross muscle atrophy, muscle strength 5 out of 5 in all 4 extremities grossly, no contractures, Neuro: CN II-XI grossly intact, light touch intact all 4 extremities, finger to nose within normal limits, Psych: Alert, oriented, appropriate affect Results CBC & Chem 7: 10/01/19 23:44 10/01/19 23:44 Labs: Abnormal Lab Results - Last 24 Hours (Table) 10/01/19 10/01/19 10/01/19 Range/Units 23:44 23:44 23:44 WBC 16.2 H (3.8-10.6) k/uL Hgb 11.7 L (13.0-17.5) gm/dL Hct 36.2 L (39.0-53.0) % MCV 77.4 L (80.0-100.0) fL RDW 15.9 H (11.5-15.5) % Plt Count 573 H (150-450) k/uL Neutrophils # 13.6 H (1.3-7.7) k/uL Lymphocytes # 0.6 L (1.0-4.8) k/uL Monocytes # 1.4 H (0-1.0) k/uL Sodium 129 L (137-145) mmol/L Glucose 199 H (74-99) mg/dL Plasma Lactic Acid Chay 2.9 H* (0.7-2.0) mmol/L Alkaline Phosphatase 308 H (38-126) U/L Creatine Kinase 42 L (55-170) U/L Total Protein 5.7 L (6.3-8.2) g/dL Albumin 2.9 L (3.5-5.0) g/dL Amylase <30 L (30-110) U/L Ur Specific [place] (1.001-1.035) Urine Protein (Negative) Urine Glucose (UA) (Negative) Urine Mucus (None) /hpf 10/02/19 Range/Units 01:21 WBC (3.8-10.6) k/uL Hgb (13.0-17.5) gm/dL Hct (39.0-53.0) % MCV (80.0-100.0) fL RDW (11.5-15.5) % Plt Count (150-450) k/uL Neutrophils # (1.3-7.7) k/uL Lymphocytes # (1.0-4.8) k/uL Monocytes # (0-1.0) k/uL Sodium (137-145) mmol/L Glucose (74-99) mg/dL Plasma Lactic Acid [place] (0.7-2.0) mmol/L Alkaline Phosphatase (38-126) U/L Creatine Kinase (55-170) U/L Total Protein (6.3-8.2) g/dL Albumin (3.5-5.0) g/dL Amylase (30-110) U/L Ur Specific [place] >1.050 H (1.001-1.035) Urine Protein 1+ H (Negative) Urine Glucose (UA) 1+ H (Negative) Urine Mucus Moderate H (None) /hpf Assessment and Plan Plan: Abdominal pain with nausea and vomiting, possibly secondary to new small bowel mass in setting of known colon CA with metastases -Continue with antiemetics -Pain control -Consult oncology -Nothing by mouth for now Hyponatremia, possibly SIADH versus poor oral intake -Monitor for now Lactic acidosis -Monitor to resolution Type II DM -Lispro sliding scale with blood glucose monitoring -Check A1c Hypertension -Continue with home meds Leukocytosis, chronically elevated likely due to ongoing malignancy -Monitor CBC for now -No active signs of infection noted DVT prophylaxis -Lovenox The patient is admitted with an anticipated less than 2 midnight stay for evaluation of abdominal pain CODE STATUS: Full Code Discussed with: Patient Anticipated discharge date: 1-[address]: Home A total of 40 minutes was spent on the care of this complex patient more than 50% of the time was spent in counseling and care coordination.
[2019-10-02] MEDS ORDERED: LORATADINE 10 MG TAB PO PRN (07:44)
[2019-10-02 08:11] LABS: Glucose,Whole Blood 171 mg/dL (75-99)
[2019-10-02] MEDS: PANTOPRAZOLE 40 MG/10 ML VIAL IVP SCH ×2 (08:49→11:08)
[2019-10-02] MEDS: INSULIN ASPART (NovoLOG) 100 UNIT/ML VIAL SQ SCH ×3 (08:49→17:40)
[2019-10-02] MEDS: FERROUS SULFATE 325 MG TAB PO SCH ×3 (08:49→21:58)
[2019-10-02] MEDS: atenoloL 25 MG TAB PO SCH (08:49)
[2019-10-02] MEDS: risperiDONE 1 MG TAB PO SCH ×2 (08:50→22:02)
[2019-10-02] MEDS: ENOXAPARIN 40 MG/0.4 ML SYRINGE SQ SCH (08:50)
[2019-10-02] MEDS ORDERED: DULoxetine HCL 60 MG CAPSULE.DR PO SCH ×2 (09:00→21:00)
--- NOTE | 2019-10-02 09:06 | US ---
EXAMINATION TYPE: US gallbladder DATE OF EXAM: 10/02/2019 COMPARISON: CT earlier today and older studies. Prior PET CTs. CLINICAL HISTORY: pain. Liver lesions seen on CT. Patient has history of metastatic colon cancer. EXAM MEASUREMENTS: Liver Length: 23.0 cm Gallbladder Wall: 0.3 cm CBD: 0.5 cm Right Kidney: 13.0 x 4.6 x 4.8 cm Difficult and limited study due to patient body habitus Pancreas: obscured by overlying midline bowel gas Liver: enlarged, diffusely heterogeneous with multiple ill defined hypo and isoechoic lesions seen w ith largest in right lobe measuring 4.3 x 4.0 x 4.0cm Gallbladder: wnl Evidence for sonographic Briggs's sign: no CBD: visualized portions wnl, limited by overlying bowel gas Right Kidney: wnl Exam noted suboptimal due to patient's large body habitus. Pancreas suboptimally seen on images saved . Note is made of enlarging 3.0 cm peripancreatic mass or metastatic adenopathy on CT axial image 29. Visualized liver is heterogeneously hyperechoic making evaluation for focal masses suboptimal. There are definitive multiple enlarging masses consistent with metastatic disease seen better on CT versus ultrasound images saved. CT-guided sampling can be performed to confirm if desired. Limited images r ight kidney show no hydronephrosis. Gallbladder shows no shadowing gallstones. IMPRESSION: Suboptimal study with progressive hepatic metastatic disease seen better on CT earlier to day.
[2019-10-02 09:33] LABS: HCT 33.8 % (39.0-53.0); HGB 10.8 gm/dL (13.0-17.5); Hypochromasia Slight; MCH 25.8 pg (25.0-35.0); MCV 80.6 fL (80.0-100.0); Mean Platelet Volume 6.4; Platelet Count 415 k/uL (150-450); RBC 4.19 m/uL (4.30-5.90); RDW 15.6 % (11.5-15.5); WBC 11.1 k/uL (3.8-10.6)
[2019-10-02 09:56] LABS: ALT 21 U/L (4-49); AST 27 U/L (17-59); African American GFR (CKD) >90 (>60 ml/min/1.73 sqM); Albumin 2.4 g/dL (3.5-5.0); Alkaline Phosphatase 251 U/L (38-126); Anion Gap 5 mmol/L; Blood Urea Nitrogen 12 mg/dL (9-20); Calcium 8.1 mg/dL (8.4-10.2); Carbon Dioxide 25 mmol/L (22-30); Chloride 102 mmol/L (98-107); Glucose 123 mg/dL (74-99); Non-African American GFR(CKD) >90 (>60 ml/min/1.73 sqM); Potassium 3.5 mmol/L (3.5-5.1); Sodium 132 mmol/L (137-145); Total Bilirubin 0.4 mg/dL (0.2-1.3); Total Protein 4.9 g/dL (6.3-8.2)
[2019-10-02] MEDS: HYDROcodone/APAP 10-325MG 1 EACH TAB PO PRN ×2 (11:03→18:54)
[2019-10-02 11:26] LABS: Glucose,Whole Blood 163 mg/dL (75-99)
[2019-10-02 11:37] VITALS: RESP 18
[2019-10-02 17:01] LABS: Glucose,Whole Blood 167 mg/dL (75-99)
[2019-10-02 18:14] LABS: Amylase <30 U/L (30-110); LDH 955 U/L (313-618); Lipase 81 U/L (23-300); Magnesium 1.7 mg/dL (1.6-2.3); Phosphorus 3.2 mg/dL (2.5-4.5)
[2019-10-02 18:16] LABS: Partial Thromboplastin Time 25.9 sec (22.0-30.0); Prothrombin Time 10.2 sec (9.0-12.0)
--- NOTE | 2019-10-02 20:34 | P.PN ---
Progress Note - Text Progress Note Date: 10/02/19 Advanced Care Planning: Diagnoses: Metastatic colon cancer Discussion: Person(s) present and participating in discussion: Tania Summary: Discussed with Tania has struggled with pain control and nausea and vomiting. He relates that he had been seeing Dr. Shankar regularly up until April, however he lost his house the situation and had not had adequate follow-up. He states he has been trying to get his [place] to last longer and therefore takes his [place] and then next takes a Tylenol to try to stretch it out. This has not been adequately controlling his pain and this is why he has been re-presenting to the emergency department. He also states he is struggling with other social aspects of his cancer and does need some help. We had a long discussion about his pain and vomiting. I suggested that he get involved with palliative care to have some to come out to the house and help work with him on a good pain management regimen will undergoing chemotherapy. He is in agreement to this plan of care and would welcome someone to help him through this process. He is aware that his cancer is metastatic and likely end-stage. He is hoping to have good outcomes if he doesn't other treatment regiment with Dr. Whalen, and prolong his functional status. A total of 21minutes of face to face time was spent discussing advanced care planning.
[2019-10-02] MEDS ORDERED: lisinopriL 10 MG TAB PO SCH (21:00)
[2019-10-02] MEDS ORDERED: ATORVASTATIN 20 MG TAB PO SCH (21:00)
--- NOTE | 2019-10-02 21:46 | P.CONS ---
History of Present Illness - Reason for Consult Consult date: 10/02/19 Progressive Colon Cancer, Requesting physician: Dawood Rothman - Chief Complaint Persistent N/V/JOSUE/Pain - History of Present Illness Mr. Mckinney is a 44 year old pleasant male patient well known to our practice for treatment of his metastatic adenocarcinoma of the colon, primary oncologist Dr. Whalen. He initially was seen in consult 06/2018, presented with decreased appetite, weight loss, and progressive nausea and vomiting for 1 week. He was febrile, imaging showed evidence of ruptured appendix with surrounding intra-abdominal abscess. CT CAP 07/04/18 showed a 13 x 6 cm inflammatory mass in the right lower to mid abdomen, some enlarged periaortic lymph nodes specific subcentimeter pulmonary nodules. He had surgery 07/[address] Stovall. Operative findings noted in the sacrum with surrounding abscess extending onto the posterior wall of the ascending colon. Due to dense inflammation mobilization of the ascending colon somewhat difficult. The patient underwent drainage of the abscess and right hemicolectomy. Pathology revealed invasive well-differentiated, grade 1 adenocarcinoma 3.5 cm, 2/8 mesenteric lymph nodes were positive for metastasis. There were at least 7 tumor deposits in the serosa. Seen for his first office visit 07/26/18. He had rust syndrome testing, which was negative. PET scan revealed uptake in 2-3 left SC nodes, the largest 1.2 cm, in the 2-3 SUV range. Supraclavicular node biopsy 08/21/18 was positive for adenocarcinoma, colon primary, MSI stable, KRAS was mutated. Started FOLFOX + Avastin ( Mvasi) on 09/25/18, completed 12 cycles 03/25/19. He was started on maintenance Xeloda + Avastin on 05/03/19. He was referred to Rad Onc to consider RT to the left SC area. Repeat imaging was recommended. He had an ER visit on 05/07/19 for abdominal distension and pain. He had a Ct scan and was told that he may have pr ogression. His last office visit was Apr 29, 2019, he moved to [facility]. Per patient, He has been back on treatment, unclear if FOLFIRINOX or FOLFOX. Per patient the treatment was stopped secondary to persistent cytopenias and worsening progressive neuropathy. He moved back recently and underwent restaging exams in early September which unfortunetely did reveal progression of disease. He was evaluated by Dr. Whalen in the office and decision was made to start back on treatment. Earlier this month he was admitted for pain and nausea, decreased PO intake. He states he has been experiencing increased abdominal bloating, changes in bowels (color and consistancy is different), and worsening abdominal and left sided hip/leg discomfort. He states he has started having persistent vomiting, and nausea that has not improved in the past week. He notes swallowing is more difficult and that he can feel the nodule on left neck more, and its painful. He apparently had this lymph node in neck radiated when in [place] and said it shrank but is increasing again and causing symptoms making it more difficult to eat. He complains of vision changes, increased difficulty with focus and headaches. His neuropathy is still bothersome, recently started on gabapentin and has helped alittle. He does still take norco daily for his cancer related pain. On admission patient was evaluated in Emergency Department while he waited for a room. He does not make eye contact, although does answer questions appropriately. He is sitting up in bed and does appear to be less than comfortable. Left leg strength is mildly weaker on exam then right. He did have MRI of the brain in 03/2019 which did not reveal evidence of metastatic disease to brain. Review of Systems A 14 point review of systems assessed and completed and all negative except HPI Past Medical History Past Medical History: Cancer, Diabetes Mellitus, Eye Disorder, Hyperlipidemia, Hypertension, Seizure Disorder, Supraventricular Tachycardia (SVT) Additional Past Medical History / Comment(s): Pt recently admitted to [facility] on 09/17/19 with intractable nausea/vomitting and pain associated with cancer. Other hx: 06/2018 colon cancer with lymph node involvement with chemotherapy last 3-4 weeks ago and had radiation tx to lymph node, NIDDM type II, neuropathy bilateral hands and feet, falls, chronic generalized pain, R eye decreased vision-pt things d/t cataract, sepsis d/t ruptured appendix, iron anemia, History of Any Multi-Drug Resistant Organisms: None Reported Past Surgical History: Appendectomy, Bowel Resection, Hernia Repair, Orthopedic Surgery, Tonsillectomy Additional Past Surgical History / Comment(s): 08/11/18 cervical lymph node bx, exploratory laparotomy/appy and R colectomy, umbilical hernia repair, UVPPP, R knee arthroscopy, port a caths-currently L chest. Past Anesthesia/Blood Transfusion Reactions: Motion Sickness Smoking Status: Former smoker - Past Family History Father Family Medical History: Liver Disease Additional Family Medical History / Comment(s): Father had ETOH abuse. He from cirrhosis. Mother Family Medical History: Congestive Heart Failure (CHF), Pulmonary Embolus Additional Family Medical History / Comment(s): Mother from CHF Medications and Allergies Home Medications Medication Instructions Recorded Confirmed Type Atorvastatin Calcium [Lipitor] 20 mg PO HS 09/14/16 10/02/19 History metFORMIN HCL [Glucophage] 850 mg PO AC-TID 09/14/16 10/02/19 History Atenolol 25 mg PO DAILY 07/04/18 10/02/19 History Lisinopril [Zestril] 10 mg PO HS 07/04/18 10/02/19 History Cholecalciferol (Vitamin D3) 2,000 unit PO DAILY 01/09/19 10/02/19 History [Vitamin D3] DULoxetine HCL [Cymbalta] 120 mg PO DAILY 01/09/19 10/02/19 History Multivitamins, Thera [Multivitamin 1 tab PO DAILY 01/09/19 10/02/19 History (formulary)] Dexamethasone 8 mg PO DIRECTED PRN 09/17/19 10/02/19 History Ferrous Sulfate [Iron] 325 mg PO TID 09/17/19 10/02/19 History Loperamide [Imodium] 2 - 4 mg PO DIRECTED PRN 09/17/19 10/02/19 History Loratadine [Claritin] 10 mg PO DAILY PRN 09/17/19 10/02/19 History Ondansetron HCl [Zofran] 8 mg PO BID PRN 09/17/19 10/02/19 History Prochlorperazine [Compazine] 10 mg PO Q6H PRN 09/17/19 10/02/19 History risperiDONE [RisperDAL] 1 mg PO BID 09/17/19 10/02/19 History Hydrocodone/Acetaminophen [[place] 1 tab PO Q4HR PRN 3 Days #18 tab 09/18/19 10/02/19 Rx 7.5-325] Allergies Allergy/AdvReac Type Severity Reaction Status Date / Time carbamazepine [From Tegretol] Allergy Severe Anaphylaxis Verified 10/02/19 07:20 lithium [[place]] Allergy Severe Anaphylaxis Verified 10/02/19 07:20 shellfish derived Allergy Severe Anaphylaxis Verified 10/02/19 07:20 aspartame Allergy SWELLING Verified 10/02/19 07:20 OF THROAT citalopram hydrobromide AdvReac Intermediate Nausea & Verified 10/02/19 07:20 [From Celexa] Vomiting Physical Exam Vitals: Vital Signs Temp Pulse Pulse Resp BP BP Pulse Ox 10/02/19 11:35 98.3 F 87 18 103/57 100 10/02/19 03:11 98.7 F 101 H 20 145/92 100 10/02/19 01:50 103 H 20 151/74 100 10/01/19 23:02 98.8 F 130 H 20 135/92 97 Intake and Output 10/02/19 10/02/19 10/02/19 06:59 14:59 22:59 Intake Total 1840 Balance 1840 Intake: Intake, IV Titration 1240 Amount Sodium Chloride 0.9% 1, 1240 000 ml @ 130 mls/hr IV . Q7H42M STA Rx#:[id number] Oral 600 Other: # Voids 1 Weight 110.677 kg 110.677 kg Gen: No eye contact, uncomfortable although no distress, alert and appropriate Neck: Left neck palpable nodule 3-4cm ahrd nodular and shotty LN palpable bila terally Head: NCAT O/P: Dry mucus membranes no thrush Lungs: CTA bilateral no wheezes, no increased effort Abdomen: Mild distention, firm, BS present, tender to palpation with guarding Heart: Tachy, reg Ext: Left Leg 3/5 Right 5/5. Left Arm and Right Arm 5/5 No rashes No lesions to skin Pale Pscyh: Anxious and uncomfortable. Results CBC & Chem 7: 10/02/19 09:01 10/02/19 09:01 Labs: Abnormal Lab Results - Last 24 Hours (Table) 10/01/19 10/01/19 10/01/19 Range/Units 23:44 23:44 23:44 WBC 16.2 H (3.8-10.6) k/uL RBC (4.30-5.90) m/uL Hgb 11.7 L (13.0-17.5) gm/dL Hct 36.2 L (39.0-53.0) % MCV 77.4 L (80.0-100.0) fL RDW 15.9 H (11.5-15.5) % Plt Count 573 H (150-450) k/uL Neutrophils # 13.6 H (1.3-7.7) k/uL Lymphocytes # 0.6 L (1.0-4.8) k/uL Monocytes # 1.4 H (0-1.0) k/uL Sodium 129 L (137-145) mmol/L Glucose 199 H (74-99) mg/dL POC Glucose (mg/dL) (75-99) mg/dL Plasma Lactic Acid Chay 2.9 H* (0.7-2.0) mmol/L Calcium (8.4-10.2) mg/dL Alkaline Phosphatase 308 H (38-126) U/L Creatine Kinase 42 L (55-170) U/L Total Protein 5.7 L (6.3-8.2) g/dL Albumin 2.9 L (3.5-5.0) g/dL Amylase <30 L (30-110) U/L Ur Specific [place] (1.001-1.035) Urine Protein (Negative) Urine Glucose (UA) (Negative) Urine Mucus (None) /hpf 10/02/19 10/02/19 10/02/19 Range/Units 01:21 07:59 09:01 WBC 11.1 H (3.8-10.6) k/uL RBC 4.19 L (4.30-5.90) m/uL Hgb 10.8 L (13.0-17.5) gm/dL Hct 33.8 L (39.0-53.0) % MCV (80.0-100.0) fL RDW 15.6 H (11.5-15.5) % Plt Count (150-450) k/uL Neutrophils # (1.3-7.7) k/uL Lymphocytes # (1.0-4.8) k/uL Monocytes # (0-1.0) k/uL Sodium (137-145) mmol/L Glucose (74-99) mg/dL POC Glucose (mg/dL) 171 H (75-99) mg/dL Plasma Lactic Acid Chay (0.7-2.0) mmol/L Calcium (8.4-10.2) mg/dL Alkaline Phosphatase (38-126) U/L Creatine Kinase (55-170) U/L Total Protein (6.3-8.2) g/dL Albumin (3.5-5.0) g/dL Amylase (30-110) U/L Ur Specific [place] >1.050 H (1.001-1.035) Urine Protein 1+ H (Negative) Urine Glucose (UA) 1+ H (Negative) Urine Mucus Moderate H (None) /hpf 10/02/19 10/02/19 Range/Units 09:01 11:24 WBC (3.8-10.6) k/uL RBC (4.30-5.90) m/uL Hgb (13.0-17.5) gm/dL Hct (39.0-53.0) % MCV (80.0-100.0) fL RDW (11.5-15.5) % Plt Count (150-450) k/uL Neutrophils # (1.3-7.7) k/uL Lymphocytes # (1.0-4.8) k/uL Monocytes # (0-1.0) k/uL Sodium 132 L (137-145) mmol/L Glucose 123 H (74-99) mg/dL POC Glucose (mg/dL) 163 H (75-99) mg/dL Plasma Lactic Acid Chay (0.7-2.0) mmol/L Calcium 8.1 L (8.4-10.2) mg/dL Alkaline Phosphatase 251 H (38-126) U/L Creatine Kinase (55-170) U/L Total Protein 4.9 L (6.3-8.2) g/dL Albumin 2.4 L (3.5-5.0) g/dL Amylase (30-110) U/L Ur Specific [place] (1.001-1.035) Urine Protein (Negative) Urine Glucose (UA) (Negative) Urine Mucus (None) /hpf Abdominal x-ray: report reviewed CT scan - abdomen: report reviewed CT scan - chest: report reviewed CT Scan - head: report reviewed Assessment and Plan Plan: Assessment and Recommendations: Metastatic Adenocarcinoma of the Colon: - Recent Progression evidenced with increased mesenteric disease and diffuse liver mets - Last Treatment in - Plan to restart treatment on October [address] Whalen Intractable Vomiting: - Persistent and worsening, likely secondary to increased abdominal and liver disease - Will evaluate Brain MRI with persistent N/V Abdominal Pain and Distention: - No evidence of obstruction - Secondary to metastatic and progressive disease - Supportive Care Unilateral Weakness: - Further Evaluate Spine/Sacrum Normocytic Anemia: - He has been off treatment for a few month, this is likely secondary to progression - Anemia work-up PLan: - MRI of the Brain and Lower Spine - Supportive care with pain management and antiemetics - Discussed in detail plan with patient, agreeable and all questions answered
[2019-10-02 21:53] LABS: Glucose,Whole Blood 104 mg/dL (75-99)
[2019-10-03 00:32] LABS: % Iron Saturation 14.55 (15.00-50.00); Iron 31 ug/dL (65-175); Total Iron Binding Capacity 213 ug/dL (228-460)
[2019-10-03] MEDS: HYDROmorphone 1 MG/ML 1 ML SYRINGE IVP PRN ×2 (00:56→08:54)
[2019-10-03 01:06] LABS: Folate, Serum 12.5 ng/mL
[2019-10-03 01:06] LABS: Ferritin 544.4 ng/mL (22.0-322.0)
[2019-10-03] MEDS: LORazepam 2 MG/ML INJ IV PRN ×2 (03:55→15:43)
[2019-10-03] MEDS: HYDROcodone/APAP 10-325MG 1 EACH TAB PO PRN ×2 (04:08→13:08)
[2019-10-03 07:11] LABS: Glucose,Whole Blood 157 mg/dL (75-99)
[2019-10-03 07:43] LABS: Basophils # (A) 0.1 k/uL (0-0.2); Basophils % (A) 1 %; Eosinophils # (A) 0.3 k/uL (0-0.7); Eosinophils % (A) 3 %; HCT 31.1 % (39.0-53.0); HGB 9.7 gm/dL (13.0-17.5); Hypochromasia Slight; Lymphocytes # (A) 0.4 k/uL (1.0-4.8); Lymphocytes % (A) 4 %; MCHC 31.2 g/dL (31.0-37.0); MCV 80.3 fL (80.0-100.0); Mean Platelet Volume 6.4; Monocytes # (A) 0.7 k/uL (0-1.0); Monocytes % (A) 8 %; Neutrophils # (A) 8.1 k/uL (1.3-7.7); Neutrophils % (A) 83 %; Platelet Count 385 k/uL (150-450); RBC 3.88 m/uL (4.30-5.90); RDW 15.9 % (11.5-15.5); WBC 9.8 k/uL (3.8-10.6)
[2019-10-03 07:57] LABS: ALT 18 U/L (4-49); AST 24 U/L (17-59); African American GFR (CKD) >90 (>60 ml/min/1.73 sqM); Alkaline Phosphatase 206 U/L (38-126); Anion Gap 4 mmol/L; Blood Urea Nitrogen 9 mg/dL (9-20); Calcium 7.9 mg/dL (8.4-10.2); Carbon Dioxide 22 mmol/L (22-30); Chloride 104 mmol/L (98-107); Glucose 133 mg/dL (74-99); Non-African American GFR(CKD) >90 (>60 ml/min/1.73 sqM); Potassium 3.8 mmol/L (3.5-5.1); Sodium 130 mmol/L (137-145); Total Bilirubin 0.3 mg/dL (0.2-1.3); Total Protein 4.5 g/dL (6.3-8.2)
[2019-10-03] MEDS: ENOXAPARIN 40 MG/0.4 ML SYRINGE SQ SCH (08:42)
[2019-10-03] MEDS: FERROUS SULFATE 325 MG TAB PO SCH ×2 (08:42→17:37)
[2019-10-03] MEDS: PANTOPRAZOLE 40 MG/10 ML VIAL IVP SCH (08:42)
[2019-10-03] MEDS: atenoloL 25 MG TAB PO SCH (08:42)
[2019-10-03] MEDS: INSULIN ASPART (NovoLOG) 100 UNIT/ML VIAL SQ SCH ×3 (08:43→17:37)
[2019-10-03] MEDS: risperiDONE 1 MG TAB PO SCH (08:53)
[2019-10-03 11:59] LABS: Glucose,Whole Blood 167 mg/dL (75-99)
[2019-10-03 14:06] VITALS: TEMP 98.1
--- NOTE | 2019-10-03 16:42 | P.PN ---
Subjective Progress Note Date: 10/03/19 Principal diagnosis: Progressive Metastatic Cancer Feeling better today. Still with intermittent nausea. Plan is for patient to follow-up with Dr. Prado for pain management as he has had prior chronic pain and opioid use before his metastatic cancer pain. He has tried MS contin in past although stated it made him feel too loopy, therefore prn meds continued without long acting and will await his referral Objective - Vital Signs Vital signs: Vital Signs Temp 98.1 F 10/03/19 13:00 Pulse 77 10/03/19 13:00 Resp 18 10/03/19 13:00 BP 95/61 10/03/19 13:00 Pulse Ox 100 10/03/19 13:00 Intake & Output 10/02/19 10/03/19 10/03/19 18:59 06:59 18:59 Intake Total 1840 700 850 Balance 1840 700 850 Weight 110.677 kg Intake: Intake, IV Titration 1240 Amount Sodium Chloride 0.9% 1, 1240 000 ml @ 130 mls/hr IV . Q7H42M STA Rx#:[id number] Oral 600 700 850 Other: Voiding Method Toilet Toilet Urinal Urinal # Voids 1 1 2 - Exam Gen: No eye contact, uncomfortable although no distress, alert and appropriate Neck: Left neck palpable nodule 3-4cm ahrd nodular and shotty LN palpable rod aterally Head: NCAT O/P: Dry mucus membranes no thrush Lungs: CTA bilateral no wheezes, no increased effort Abdomen: Mild distention, firm, BS present, tender to palpation with guarding Heart: Tachy, reg Ext: Left Leg 5/5 Right 5/5. Left Arm and Right Arm 5/5 - Improved No rashes No lesions to skin Pale Pscyh: Anxious and uncomfortable. - Labs CBC & Chem 7: 10/03/19 07:17 10/03/19 07:17 Labs: Abnormal Lab Results - Last 24 Hours (Table) 10/02/19 10/02/19 10/02/19 Range/Units 09:01 09:01 16:59 RBC (4.30-5.90) m/uL Hgb (13.0-17.5) gm/dL Hct (39.0-53.0) % RDW (11.5-15.5) % Neutrophils # (1.3-7.7) k/uL Lymphocytes # (1.0-4.8) k/uL Retic Count 3.0 H (0.5-2.0) % Sodium (137-145) mmol/L Creatinine (0.66-1.25) mg/dL Glucose (74-99) mg/dL POC Glucose (mg/dL) 167 H (75-99) mg/dL Calcium (8.4-10.2) mg/dL Iron 26 L (65-175) ug/dL TIBC (228-460) ug/dL % Saturation (15.00-50.00) Ferritin 544.4 H (22.0-322.0) ng/mL Alkaline Phosphatase (38-126) U/L Lactate Dehydrogenase (313-618) U/L Total Protein (6.3-8.2) g/dL Albumin (3.5-5.0) g/dL Amylase (30-110) U/L 10/02/19 10/02/19 10/03/19 Range/Units 17:32 21:52 07:09 RBC (4.30-5.90) m/uL Hgb (13.0-17.5) gm/dL Hct (39.0-53.0) % RDW (11.5-15.5) % Neutrophils # (1.3-7.7) k/uL Lymphocytes # (1.0-4.8) k/uL Retic Count (0.5-2.0) % Sodium (137-145) mmol/L Creatinine (0.66-1.25) mg/dL Glucose (74-99) mg/dL POC Glucose (mg/dL) 104 H 157 H (75-99) mg/dL Calcium (8.4-10.2) mg/dL Iron 31 L (65-175) ug/dL TIBC 213 L (228-460) ug/dL % Saturation 14.55 L (15.00-50.00) Ferritin (22.0-322.0) ng/mL Alkaline Phosphatase (38-126) U/L Lactate Dehydrogenase 955 H (313-618) U/L Total Protein (6.3-8.2) g/dL Albumin (3.5-5.0) g/dL Amylase <30 L (30-110) U/L 10/03/19 10/03/19 10/03/19 Range/Units 07:17 07:17 11:56 RBC 3.88 L (4.30-5.90) m/uL Hgb 9.7 L (13.0-17.5) gm/dL Hct 31.1 L (39.0-53.0) % RDW 15.9 H (11.5-15.5) % Neutrophils # 8.1 H (1.3-7.7) k/uL Lymphocytes # 0.4 L (1.0-4.8) k/uL Retic Count (0.5-2.0) % Sodium 130 L (137-145) mmol/L Creatinine 0.44 L (0.66-1.25) mg/dL Glucose 133 H (74-99) mg/dL POC Glucose (mg/dL) 167 H (75-99) mg/dL Calcium 7.9 L (8.4-10.2) mg/dL Iron (65-175) ug/dL TIBC (228-460) ug/dL % Saturation (15.00-50.00) Ferritin (22.0-322.0) ng/mL Alkaline Phosphatase 206 H (38-126) U/L Lactate Dehydrogenase (313-618) U/L Total Protein 4.5 L (6.3-8.2) g/dL Albumin 2.0 L (3.5-5.0) g/dL Amylase (30-110) U/L Assessment and Plan Plan: Assessment and Recommendations: Metastatic Adenocarcinoma of the Colon: - Recent Progression evidenced with increased mesenteric disease and diffuse liver mets - Last Treatment in - Plan to restart treatment on October [address] Whalen Intractable Vomiting: - Persistent and worsening, likely secondary to increased abdominal and liver disease - Will evaluate Brain MRI with persistent N/V Abdominal Pain and Distention: - No evidence of obstruction - Secondary to metastatic and progressive disease - Supportive Care Unilateral Weakness: Improved - Will continue to monitor and if continues will Further Evaluate Spine/Sacrum as outpatient Normocytic Anemia: - He has been off treatment for a few month, this is likely secondary to progression - Anemia work-up Peripheral Neuropathy: - Continue on B6 and restart gabapentin Normocytic Anemia: - Ferritin shows stable iron storage, mild increase from inflammation, no additional supplement needed unless obvious signs of bleeding - B12 decreased, likely from absorption and decreased po intake, B12 IM x5 PLan: - MRI of the Brain - Lower ext weakness improved will hold off on MRI spine for now and reassess as outpatient. CT scan did reveal lumbar spine intact - Plan to follow-up with Dr. Prado at discharge for pain management services - Supportive care with pain management and antiemetics - Discussed in detail plan with patient, agreeable and all questions answered Physician Attest: I have completed the full history and physical and agree with above dictation, dictated as a scribe
[2019-10-03 17:12] LABS: Glucose,Whole Blood 175 mg/dL (75-99)
[2019-10-03] MEDS ORDERED: CYANOCOBALAMIN 1,000 MCG/ML 1 ML VIAL IM SCH (17:30)
--- NOTE | 2019-10-03 17:33 | MR ---
EXAMINATION TYPE: MR brain wo/w con DATE OF EXAM: 10/03/2019 COMPARISON: 03/11/2019 HISTORY: persistent N/V Progressive cancer, Hx Colon CA CONTRAST: Standard multiplanar, multisequence MRI departmental protocol utilizing 10 mL intravenous Gadavist ga dolinium contrast. There is cerebral cortical atrophy. There is no mass effect nor midline shift. There is no sign of in tracranial hemorrhage. There is no evidence of a cortical infarct. There is single 4 mm focus of incr eased signal in the white matter left posterior frontal lobe. There are 3 mm foci of increased signal in the white matter left posterior temporal lobe on the FLAIR images. The brainstem is intact. Corpu s callosum appears intact. Sella turcica appears normal. There is normal contrast opacification of th e venous sinuses. I see no pathologic enhancement. IMPRESSION: Tiny white matter foci of increased signal in the left frontal and left temporal lobe of uncertain si gnificance. These appear not significantly different than old exam. Mild cerebral atrophy. No evidenc e of metastatic disease.
[2019-10-03 17:41] VITALS: BP 101/59; PULSE 78
--- NOTE | 2019-10-03 18:15 | P.DS ---
Providers Date of admission: 10/02/19 02:08 Expected date of discharge: 10/03/19 Attending physician: Braeden Pitts MD Consults: 10/02/19 02:09 Consult Physician Routine Consulting Provider: Daniele Whalen Consult Reason/Comments: known Do you want consulting provider notified?: Yes Primary care physician: Stated None Hospital Course: Discharge Diagnosis: Intractable pain secondary to metastatic cancer Metastatic Adenocarcinoma of the colon Intractable vomiting Normocytic anemia Peripheral neuropathy Hyponatremia DM 2 Hypertension Leukocytosis, improved Hospital Course: Patient is a 44-year-old male with metastatic colon cancer to the liver (following with Dr. Whalen but has not had chemotherapy since April), diabetes mellitus type 2, hypertension, dyslipidemia, and seizure disorder who presented to the emergency department with complaints of abdominal pain, nausea, and vomiting. In the ER he underwent an extensive evaluation. His initial vital signs were within normal limits. Initial laboratory analysis showed white blood cell count 16.2, hemoglobin 11.7, platelets 573, sodium 129, lactic acid 2.9, alkaline phosphatase 308, Tylenol level was negative. He underwent a CT abdomen and pelvis which showed extensive liver lesions consistent with metastatic disease as well as a small bowel mesenteric mass in the right mid abdomen. After discussion it no more vomiting. He did use IV Dilaudid for pain control. He underwent gallbladder ultrasound which was consistent with his metastatic disease. He was seen by oncology. His [place] was increased which helped control the pain. He underwent an MRI of the brain which did not show any new metastatic lesion. He was determined stable for discharge home. Arrangements were made for palliative care. Case was discussed with Dr. Whalen and they have been setting the patient up to follow with Dr. Durham's office for pain managment. Patient was discharge with an Rx for noroc 40 tabs. During his hospital stay we did discuss morphine long acting and fentanyl patch as other options for his pain control, but he did not want to try these medications at this time Patient seen and examined at bedside. No more vomiting, pain is well controlled, he states he has had a poor reaction to morphine is easily come to sedated. He has tried gabapentin in the past that helped at night, however he did it twice a day was too sedating. Vital signs reviewed and stable. General: non toxic, no distress, appears at stated age Derm: warm, dry Head: atraumatic, normocephalic, symmetric Eyes: EOMI, no lid lag, anicteric sclera Mouth: no lip lesion, mucus membranes moist Cardiovascular: S1S2 reg, no murmur, positive posterior tibial pulse bilateral, Lungs: CTA bilateral, no rhonchi, no rales , no accessory muscle use Abdominal: soft, tender to palpation left lower quadrant, no guarding, no appreciable organomegaly Ext: no gross muscle atrophy, no edema, no contractures Neuro: CN II-XI grossly intact, no focal neuro deficits Psych: Alert, oriented, appropriate affect A total of 35 minutes of time were spent preparing this complex discharge summa ry . Patient Condition at Discharge: Fair Plan - Discharge Summary Discharge Rx Participant: No New Discharge Prescriptions: New Gabapentin [Neurontin] 300 mg PO HS #30 cap HYDROcodone/APAP 10-325MG [[place] 10-325] 1 each PO Q4HR PRN #30 tab PRN Reason: Pain Pyridoxine [Vitamin B-6] 50 mg PO BID #60 tab Continue Atorvastatin Calcium [Lipitor] 20 mg PO HS metFORMIN HCL [Glucophage] 850 mg PO AC-TID Lisinopril [Zestril] 10 mg PO HS Atenolol 25 mg PO DAILY Multivitamins, Thera [Multivitamin (formulary)] 1 tab PO DAILY DULoxetine HCL [Cymbalta] 120 mg PO DAILY Cholecalciferol (Vitamin D3) [Vitamin D3] 2,000 unit PO DAILY Ferrous Sulfate [Iron] 325 mg PO TID Loperamide [Imodium] 2 - 4 mg PO DIRECTED PRN PRN Reason: Diarrhea Ondansetron HCl [Zofran] 8 mg PO BID PRN PRN Reason: Nausea Prochlorperazine [Compazine] 10 mg PO Q6H PRN PRN Reason: Nausea risperiDONE [RisperDAL] 1 mg PO BID Loratadine [Claritin] 10 mg PO DAILY PRN PRN Reason: Allergy Symptoms Discontinued Dexamethasone 8 mg PO DIRECTED PRN PRN Reason: AFTER CHEMO Hydrocodone/Acetaminophen [[place] 7.5-325] 1 tab PO Q4HR PRN 3 Days #18 tab PRN Reason: Pain Discharge Medication List Atorvastatin Calcium [Lipitor] 20 mg PO HS 09/14/16 [History] metFORMIN HCL [Glucophage] 850 mg PO AC-TID 09/14/16 [History] Atenolol 25 mg PO DAILY 07/04/18 [History] Lisinopril [Zestril] 10 mg PO HS 07/04/18 [History] Cholecalciferol (Vitamin D3) [Vitamin D3] 2,000 unit PO DAILY 01/09/19 [History] DULoxetine HCL [Cymbalta] 120 mg PO DAILY 01/09/19 [History] Multivitamins, Thera [Multivitamin (formulary)] 1 tab PO DAILY 01/09/19 [History] Ferrous Sulfate [Iron] 325 mg PO TID 09/17/19 [History] Loperamide [Imodium] 2 - 4 mg PO DIRECTED PRN 09/17/19 [History] Loratadine [Claritin] 10 mg PO DAILY PRN 09/17/19 [History] Ondansetron HCl [Zofran] 8 mg PO BID PRN 09/17/19 [History] Prochlorperazine [Compazine] 10 mg PO Q6H PRN 09/17/19 [History] risperiDONE [RisperDAL] 1 mg PO BID 09/17/19 [History] Gabapentin [Neurontin] 300 mg PO HS #30 cap 10/03/19 [Rx] HYDROcodone/APAP 10-325MG [[place] 10-325] 1 each PO Q4HR PRN #30 tab 10/03/19 [Rx] Pyridoxine [Vitamin B-6] 50 mg PO BID #60 tab 10/03/19 [Rx] Follow up Appointment(s)/Referral(s): Daniele Whalen MD [STAFF PHYSICIAN] - 1 Week Esther Durham MD [Medical Doctor] - As Needed (Should already have an appointment for pain management ) None,Stated [Primary Care Provider] - 1-2 days Activity/Diet/Wound Care/Special Instructions: Activity: as tolerated Diet: regular Special Instructions: Palliative care will call to set up a visit No driving with pain medications
[2019-10-03] MEDS ORDERED: GABAPENTIN 300 MG CAP PO SCH (21:00)
[2019-10-03] MEDS ORDERED: PYRIDOXINE 50 MG TAB PO SCH (21:00)
== END 2019-10-03 18:49 | disposition home or self-care (01) ==
LOC: EC 22:53 → INTOOBSV 10-02 02:08 → 5NMEDONC 10-02 02:08 → UNDODISIN 10-03 18:49
PROVIDERS: ADMIT Internal Medicine; ATTEND Internal Medicine
DX: G89.3 Neoplasm related pain (acute) (chronic) (principal); C18.9 Malignant neoplasm of colon, unspecified; C78.7 Secondary malignant neoplasm of liver and intrahepatic bile duct; C77.8 Secondary and unspecified malignant neoplasm of lymph nodes of multiple regions; D64.9 Anemia, unspecified; E87.1 Hypo-osmolality and hyponatremia; E11.42 Type 2 diabetes mellitus with diabetic polyneuropathy; R11.15 Cyclical vomiting syndrome unrelated to migraine; R53.1 Weakness; R63.0 Anorexia; R51 Headache; I10 Essential (primary) hypertension; D72.829 Elevated white blood cell count, unspecified; E87.5 Hyperkalemia; G40.909 Epilepsy, unspecified, not intractable, without status epilepticus; I47.1 Supraventricular tachycardia; F31.9 Bipolar disorder, unspecified; F25.9 Schizoaffective disorder, unspecified; E66.9 Obesity, unspecified; Z68.33 Body mass index [BMI] 33.0-33.9, adult; E87.2 Acidosis; R91.8 Other nonspecific abnormal finding of lung field; H54.61 Unqualified visual loss, right eye, normal vision left eye; H26.9 Unspecified cataract; E78.5 Hyperlipidemia, unspecified; Z92.3 Personal history of irradiation; Z92.21 Personal history of antineoplastic chemotherapy; Z86.19 Personal history of other infectious and parasitic diseases; Z11.59 Encounter for screening for other viral diseases; Z90.49 Acquired absence of other specified parts of digestive tract; Z87.891 Personal history of nicotine dependence; Z79.899 Other long term (current) drug therapy; Z79.84 Long term (current) use of oral hypoglycemic drugs; Z79.891 Long term (current) use of opiate analgesic; Z88.8 Allergy status to other drugs, medicaments and biological substances; Z91.013 Allergy to seafood; Z81.1 Family history of alcohol abuse and dependence; Z82.49 Family history of ischemic heart disease and other diseases of the circulatory system; Z83.79 Family history of other diseases of the digestive system
CPT/HCPCS: 96376 ×2; 96361 ×3; 96372 ×2; 96374; 96375 ×2; 99285; 36415; 93005; 83921; 80053 ×3; 82607; 82378; 82728; 82150 ×2; 82550; 82746; 83540; 83550; 83605 ×2; 83615; 83690 ×2; 83735; 84100; 85025 ×2; 85027; 85610; 85045; 85730; 81001; 83993; 87045; 87046; 83036; 74018; 76705; 74177; 70553; G0378 ×2; G0480; U0003; J2060 ×2; J3420; J2405; J1650 ×2; J1885; J1170 ×3; C9113 ×2; A9585; Q9967; 80329

== ENCOUNTER 2019-10-14 02:25 | Emergency (ER) | payer MEDICARE, OTHER ==
[2019-10-14 02:34] VITALS: TEMP 98.7
[2019-10-14] MEDS ORDERED: LORazepam 2 MG/ML INJ IV STA (02:35)
[2019-10-14 03:01] LABS: Basophils % (A) 0 %; Eosinophils # (A) 0.1 k/uL (0-0.7); Eosinophils % (A) 2 %; HCT 29.4 % (39.0-53.0); HGB 9.5 gm/dL (13.0-17.5); Hypochromasia Slight; Lymphocytes # (A) 0.4 k/uL (1.0-4.8); Lymphocytes % (A) 7 %; MCH 25.5 pg (25.0-35.0); MCHC 32.3 g/dL (31.0-37.0); MCV 78.9 fL (80.0-100.0); Mean Platelet Volume 6.6; Monocytes # (A) 0.1 k/uL (0-1.0); Monocytes % (A) 3 %; Neutrophils # (A) 4.4 k/uL (1.3-7.7); Neutrophils % (A) 87 %; Platelet Count 347 k/uL (150-450); RBC 3.73 m/uL (4.30-5.90); RDW 14.9 % (11.5-15.5)
[2019-10-14 03:10] LABS: ALT 19 U/L (4-49); AST 25 U/L (17-59); African American GFR (CKD) >90 (>60 ml/min/1.73 sqM); Albumin 2.4 g/dL (3.5-5.0); Alkaline Phosphatase 332 U/L (38-126); Anion Gap 10 mmol/L; Blood Urea Nitrogen 13 mg/dL (9-20); Calcium 8.2 mg/dL (8.4-10.2); Carbon Dioxide 21 mmol/L (22-30); Chloride 103 mmol/L (98-107); Glucose 175 mg/dL (74-99); Non-African American GFR(CKD) >90 (>60 ml/min/1.73 sqM); Potassium 3.1 mmol/L (3.5-5.1); Sodium 134 mmol/L (137-145); Total Bilirubin 0.2 mg/dL (0.2-1.3); Total Protein 4.9 g/dL (6.3-8.2)
--- NOTE | 2019-10-14 03:31 | ED ---
Seizure HPI - General Chief Complaint: Seizure Stated Complaint: seizure Time Seen by Provider: 10/14/19 02:34 Source: patient, EMS Mode of arrival: EMS Limitations: no limitations - History of Present Illness Initial Comments: This patient is a 44-year-old man who presents to be evaluated after he had seizure tonight. The patient states that he has history of seizure disorder that had been seizure free for approximately 3 years and had actually been weaned from his anticonvulsant medications. Patient did have 2 tonic-clonic seizures tonight, one of which was witnessed by his roommate and lasted between 1 and 2 minutes. The patient does state that his sleep has been irregular lately. In relation to the seizures, he did state that he fell forward and struck his head but is denying significant headache. No other injury. No neck, chest, back, abdomen pain. He states that he feels like he is back at his baseline. MD Complaint: seizure -: hour(s) Description of Episode: loss of consciousness, tonic-clonic movement -: minutes(s) Witnessed: yes - by bystander Trauma: No Seizure History: known seizure disorder Place: home Possible Precipitating Event: lack of sleep Associated Symptoms: denies other symptoms - Related Data Home Medications Medication Instructions Recorded Confirmed Atorvastatin Calcium [Lipitor] 20 mg PO HS 09/14/16 10/08/19 metFORMIN HCL [Glucophage] 850 mg PO AC-TID 09/14/16 10/08/19 Atenolol 25 mg PO DAILY 07/04/18 10/08/19 Lisinopril [Zestril] 10 mg PO HS 07/04/18 10/08/19 Cholecalciferol (Vitamin D3) 2,000 unit PO DAILY 01/09/19 10/08/19 [Vitamin D3] DULoxetine HCL [Cymbalta] 120 mg PO DAILY 01/09/19 10/08/19 Multivitamins, Thera [Multivitamin 1 tab PO DAILY 01/09/19 10/08/19 (formulary)] Ferrous Sulfate [Iron] 325 mg PO TID 09/17/19 10/08/19 Loperamide [Imodium] 2 - 4 mg PO DIRECTED PRN 09/17/19 10/08/19 Loratadine [Claritin] 10 mg PO DAILY PRN 09/17/19 10/08/19 Ondansetron HCl [Zofran] 8 mg PO BID PRN 09/17/19 10/08/19 Prochlorperazine [Compazine] 10 mg PO Q6H PRN 09/17/19 10/08/19 risperiDONE [RisperDAL] 1 mg PO BID 09/17/19 10/08/19 Previous Rx's Medication Instructions Recorded Gabapentin [Neurontin] 300 mg PO HS #30 cap 10/03/19 HYDROcodone/APAP 10-325MG [[place] 1 each PO Q4HR PRN #30 tab 10/03/19 10-325] Pyridoxine [Vitamin B-6] 50 mg PO BID #60 tab 10/03/19 levETIRAcetam [Keppra] 500 mg PO Q12HR #20 tab 10/14/19 Allergies Allergy/AdvReac Type Severity Reaction Status Date / Time carbamazepine [From Tegretol] Allergy Severe Anaphylaxis Verified 10/08/19 10:33 lithium [Carl] Allergy Severe Anaphylaxis Verified 10/08/19 10:33 shellfish derived Allergy Severe Anaphylaxis Verified 10/08/19 10:33 aspartame Allergy SWELLING Verified 10/08/19 10:33 OF THROAT citalopram hydrobromide AdvReac Intermediate Nausea & Verified 10/08/19 10:33 [From Celexa] Vomiting Review of Systems ROS Statement: Those systems with pertinent positive or pertinent negative responses have been documented in the HPI. ROS Other: All systems not noted in ROS Statement are negative. Constitutional: Denies: fever, chills Eyes: Denies: vision change Respiratory: Denies: cough, dyspnea Cardiovascular: Denies: chest pain, palpitations Gastrointestinal: Denies: abdominal pain, nausea, vomiting Genitourinary: Denies: dysuria Musculoskeletal: Denies: back pain Skin: Denies: rash Neurological: Reports: as per HPI, other (Seizure). Denies: headache, weakness, numbness, paresthesias Past Medical History Past Medical History: Cancer, Diabetes Mellitus, Eye Disorder, Hyperlipidemia, Hypertension, Seizure Disorder, Supraventricular Tachycardia (SVT) Additional Past Medical History / Comment(s): Pt recently admitted to [facility] on with intractable nausea/vomitting and pain associated with cancer. Other hx: 06/2018 colon cancer with lymph node involvement with chemotherapy last 3-4 weeks ago and had radiation tx to lymph node, NIDDM type II, neuropathy bilateral hands and feet, falls, chronic generalized pain, R eye decreased vision-pt things d/t cataract, sepsis d/t ruptured appendix, iron anemia, History of Any Multi-Drug Resistant Organisms: None Reported Past Surgical History: Appendectomy, Bowel Resection, Hernia Repair, Orthopedic Surgery, Tonsillectomy Additional Past Surgical History / Comment(s): 08/11/18 cervical lymph node bx, exploratory laparotomy/appy and R colectomy, umbilical hernia repair, UVPPP, R knee arthroscopy, port a caths-currently L chest. Past Anesthesia/Blood Transfusion Reactions: Motion Sickness Past Psychological History: Bipolar, Depression, Schizoaffective Disorder, Schizophrenia Smoking Status: Former smoker Past Alcohol Use History: None Reported Past Drug Use History: Marijuana - Past Family History Father Family Medical History: Liver Disease Additional Family Medical History / Comment(s): Father had ETOH abuse. He from cirrhosis. Mother Family Medical History: Congestive Heart Failure (CHF), Pulmonary Embolus Additional Family Medical History / Comment(s): Mother from CHF General Exam Limitations: no limitations General appearance: alert, in no apparent distress Head exam: Present: atraumatic, normocephalic Eye exam: Present: normal appearance. Absent: scleral icterus, conjunctival injection ENT exam: Present: normal oropharynx Neck exam: Present: normal inspection, full ROM Respiratory exam: Present: normal lung sounds bilaterally. Absent: respiratory distress, wheezes, rales, rhonchi, stridor Cardiovascular Exam: Present: regular rate, normal rhythm, normal heart sounds. Absent: systolic murmur, diastolic murmur, rubs, gallop GI/Abdominal exam: Present: soft. Absent: distended, tenderness, guarding, rebound, rigid, mass Extremities exam: Present: normal inspection, normal capillary refill. Absent: pedal edema, calf tenderness Back exam: Present: normal inspection. Absent: CVA tenderness (R), CVA tend erness (L) Neurological exam: Present: alert Skin exam: Present: warm, dry, intact, normal color. Absent: rash Course Vital Signs 10/14/19 10/14/19 10/14/19 02:25 04:12 05:30 Temperature 98.7 F Pulse Rate 101 H 98 97 Respiratory 20 18 18 Rate Blood Pressure 103/61 101/68 107/69 O2 Sat by Pulse 100 98 99 Oximetry Medical Decision Making - Medical Decision Making This patient is a 44-year-old man with history of previous seizures, who had been seizure free for number of years and presents tonight after having had two seizures at home. I discussed with the patient and he is not recall the previous anticonvulsant, not sure if it was Keppra, but would try resuming that and following with the neurologist. He will return should there be any other symptoms or recurrent seizure. - Lab Data Result diagrams: 10/14/19 02:33 10/14/19 02:33 Lab Results 10/14/19 10/14/19 10/14/19 Range/Units 02:33 02:33 05:14 WBC 5.0 (3.8-10.6) k/uL RBC 3.73 L (4.30-5.90) m/uL Hgb 9.5 L (13.0-17.5) gm/dL Hct 29.4 L (39.0-53.0) % MCV 78.9 L (80.0-100.0) fL MCH 25.5 (25.0-35.0) pg MCHC 32.3 (31.0-37.0) g/dL RDW 14.9 (11.5-15.5) % Plt Count 347 (150-450) k/uL Neutrophils % 87 % Lymphocytes % 7 % Monocytes % 3 % Eosinophils % 2 % Basophils % 0 % Neutrophils # 4.4 (1.3-7.7) k/uL Lymphocytes # 0.4 L (1.0-4.8) k/uL Monocytes # 0.1 (0-1.0) k/uL Eosinophils # 0.1 (0-0.7) k/uL Basophils # 0.0 (0-0.2) k/uL Hypochromasia Slight Sodium 134 L (137-145) mmol/L Potassium 3.1 L (3.5-5.1) mmol/L Chloride 103 (98-107) mmol/L Carbon Dioxide 21 L (22-30) mmol/L Anion Gap 10 mmol/L BUN 13 (9-20) mg/dL Creatinine 0.62 L (0.66-1.25) mg/dL Est GFR (CKD-EPI)AfAm >90 (>60 ml/min/1.73 sqM) Est GFR (CKD-EPI)NonAf >90 (>60 ml/min/1.73 sqM) Glucose 175 H (74-99) mg/dL Calcium 8.2 L (8.4-10.2) mg/dL Total Bilirubin 0.2 (0.2-1.3) mg/dL AST 25 (17-59) U/L ALT 19 (4-49) U/L Alkaline Phosphatase 332 H (38-126) U/L Total Protein 4.9 L (6.3-8.2) g/dL Albumin 2.4 L (3.5-5.0) g/dL Urine Color Yellow Urine Appearance Clear (Clear) Urine pH 6.0 (5.0-8.0) Ur Specific [place] 1.037 H (1.001-1.035) Urine Protein 1+ H (Negative) Urine Glucose (UA) Negative (Negative) Urine Ketones Trace H (Negative) Urine Blood Negative (Negative) Urine Nitrite Negative (Negative) Urine Bilirubin Negative (Negative) Urine Urobilinogen 2.0 (<2.0) mg/dL Ur Leukocyte Esterase Negative (Negative) Urine RBC 1 (0-5) /hpf Urine WBC <1 (0-5) /hpf Ur Squamous Epith Cells 1 (0-4) /hpf Hyaline Casts 1 (0-2) /lpf Urine Mucus Many H (None) /hpf Urine Opiates Screen Detected H (NotDetected) Ur Oxycodone Screen Not Detected (NotDetected) Urine Methadone Screen Not Detected (NotDetected) Ur Propoxyphene Screen Not Detected (NotDetected) Ur Barbiturates Screen Not Detected (NotDetected) U Tricyclic Antidepress Not Detected (NotDetected) Ur Phencyclidine Scrn Not Detected (NotDetected) Ur Amphetamines Screen Not Detected (NotDetected) U Methamphetamines Scrn Not Detected (NotDetected) U Benzodiazepines Scrn Detected H (NotDetected) Urine Cocaine Screen Not Detected (NotDetected) U Marijuana (THC) Screen Detected H (NotDetected) - EKG Data EKG shows normal: sinus rhythm, axis (Normal), intervals (Normal), QRS complexes (Normal), ST-T waves (Normal) Rate: tachycardia (Rate 102 BPM) Disposition Clinical Impression: Generalized seizure Disposition: HOME SELF-CARE Condition: Good Instructions (If sedation given, give patient instructions): Recurrent Seizures in Adults (ED) Prescriptions: levETIRAcetam [Keppra] 500 mg PO Q12HR #20 tab Is patient prescribed a controlled substance at d/c from ED?: No Referrals: None,Stated [Primary Care Provider] - 1-2 days Esther Durham MD [Medical Doctor] - 1-2 days
[2019-10-14 04:13] VITALS: RESP 18
[2019-10-14 05:32] LABS: Appearance,Urine Clear (Clear); Bilirubin,Urine Negative (Negative); Blood,Urine Negative (Negative); Color,Urine Yellow; Glucose,Urine (UA) Negative (Negative); Hyaline Casts,Urine 1 /lpf (0-2); Ketones,Urine Trace (Negative); Leukocyte Esterase,Urine Negative (Negative); Mucus,Urine Many /hpf; Nitrite,Urine Negative (Negative); Protein,Urine 1+ (Negative); RBC,Urine 1 /hpf (0-5); Specific Gravity,Urine 1.037 (1.001-1.035); Squamous Epithelial Cell,Urine 1 /hpf (0-4); WBC,Urine <1 /hpf (0-5)
[2019-10-14 05:37] VITALS: BP 107/69; PULSE 97
[2019-10-14 05:37] LABS: Amphetamine Screen,Urine Not Detected (NotDetected); Barbiturate Screen,Urine Not Detected (NotDetected); Benzodiazepines Screen,Urine Detected (NotDetected); Cocaine Screen,Urine Not Detected (NotDetected); Methadone Screen, Urine Not Detected (NotDetected); Opiate Screen,Urine Detected (NotDetected); Oxycodone Screen, Urine Not Detected (NotDetected); Phencyclidine Screen,Urine Not Detected (NotDetected); Tricyclic Antidepressant,Urine Not Detected (NotDetected); Urn Cannabinoid Scrn Detected (NotDetected)
[2019-10-14] MEDS ORDERED: POTASSIUM CHLORIDE ER 20 MEQ TAB.ER PO STA (06:04)
[2019-10-14] MEDS ORDERED: levETIRAcetam 500 MG TAB PO STA (06:10)
== END 2019-10-14 06:34 | disposition home or self-care (01) ==
LOC: EC 02:25
DX: G40.409 Other generalized epilepsy and epileptic syndromes, not intractable, without status epilepticus (principal); E78.5 Hyperlipidemia, unspecified; I10 Essential (primary) hypertension; I47.1 Supraventricular tachycardia; E11.40 Type 2 diabetes mellitus with diabetic neuropathy, unspecified; F32.9 Major depressive disorder, single episode, unspecified; F20.9 Schizophrenia, unspecified; Z87.891 Personal history of nicotine dependence; Z92.21 Personal history of antineoplastic chemotherapy; Z85.038 Personal history of other malignant neoplasm of large intestine; Z79.84 Long term (current) use of oral hypoglycemic drugs; Z79.899 Other long term (current) drug therapy; Z88.8 Allergy status to other drugs, medicaments and biological substances; Z91.013 Allergy to seafood
CPT/HCPCS: 36415; 93005; 80053; 85025; 81001; 80306; 99284; 96374; J2060

== ENCOUNTER 2019-10-17 23:30 | Emergency (ER) | payer MEDICARE, OTHER ==
[2019-10-17 23:36] VITALS: TEMP 97.3
[2019-10-18] MEDS ORDERED: DULoxetine HCL 60 MG CAPSULE.DR PO ONE
--- NOTE | 2019-10-18 00:27 | ED ---
Psych HPI - General Source: patient Mode of arrival: ambulatory - History of Present Illness MD Complaint: feels depressed Onset/Timin -: week(s) Associated Psychiatric Symptoms: depression History of same: Yes Quality: getting worse Improves With: none Worsens With: none Context: not taking psychiatric medications Associated Symptoms: denies other symptoms <Buddy Mendoza - Last Filed: 10/18/19 00:27> <Dawood Rothman - Last Filed: 10/18/19 16:46> - General Chief Complaint: Psychiatric Symptoms Stated Complaint: Mental health Time Seen by Provider: 10/17/19 23:39 - History of Present Illness Initial Comments: This patient is a 44-year-old man with history of mood disorder. He states that his mood has been worsening for between 1 and 2 weeks. His medication ran out and he will not be able to have that prescribed until his next appointment on October 26. (Buddy Mendoza) - Related Data Home Medications Medication Instructions Recorded Confirmed Atorvastatin Calcium [Lipitor] 20 mg PO HS 09/14/16 10/17/19 metFORMIN HCL [Glucophage] 850 mg PO AC-TID 09/14/16 10/17/19 Atenolol 25 mg PO DAILY 07/04/18 10/17/19 Lisinopril [Zestril] 10 mg PO HS 07/04/18 10/17/19 Cholecalciferol (Vitamin D3) 2,000 unit PO DAILY 01/09/19 10/17/19 [Vitamin D3] Multivitamins, Thera [Multivitamin 1 tab PO DAILY 01/09/19 10/17/19 (formulary)] Ferrous Sulfate [Iron] 325 mg PO TID 09/17/19 10/17/19 Loperamide [Imodium] 2 - 4 mg PO DIRECTED PRN 09/17/19 10/17/19 Loratadine [Claritin] 10 mg PO DAILY PRN 09/17/19 10/17/19 Ondansetron HCl [Zofran] 8 mg PO BID PRN 09/17/19 10/17/19 Prochlorperazine [Compazine] 10 mg PO Q6H PRN 09/17/19 10/17/19 risperiDONE [RisperDAL] 1 mg PO BID 09/17/19 10/17/19 HYDROcodone/APAP 10-325MG [[place] 1 tab PO Q4HR PRN 10/17/19 10/17/19 10-325] Previous Rx's Medication Instructions Recorded Gabapentin [Neurontin] 300 mg PO HS #30 cap 10/03/19 Pyridoxine [Vitamin B-6] 50 mg PO BID #60 tab 10/03/19 levETIRAcetam [Keppra] 500 mg PO Q12HR #20 tab 10/14/19 DULoxetine HCL [Cymbalta] 120 mg PO DAILY #60 cap 10/18/19 Allergies Allergy/AdvReac Type Severity Reaction Status Date / Time carbamazepine [From Tegretol] Allergy Severe Anaphylaxis Verified 10/17/19 23:56 lithium [[place]] Allergy Severe Anaphylaxis Verified 10/17/19 23:56 shellfish derived Allergy Severe Anaphylaxis Verified 10/17/19 23:56 aspartame Allergy SWELLING Verified 10/17/19 23:56 OF THROAT citalopram hydrobromide AdvReac Intermediate Nausea & Verified 10/17/19 23:56 [From Celexa] Vomiting Review of Systems ROS Other: All systems not noted in ROS Statement are negative. Constitutional: Denies: fever, chills Respiratory: Denies: cough, dyspnea Cardiovascular: Denies: chest pain, palpitations Gastrointestinal: Denies: abdominal pain, vomiting, diarrhea Musculoskeletal: Denies: back pain Skin: Denies: rash Neurological: Denies: headache Psychiatric: Reports: depression, suicidal thoughts. Denies: auditory hallucinations, visual hallucinations, homicidal thoughts <Buddy Mendoza - Last Filed: 10/18/19 00:27> ROS Other: All systems not noted in ROS Statement are negative. <Dawood Rothman - Last Filed: 10/18/19 16:46> ROS Statement: Those systems with pertinent positive or pertinent negative responses have been documented in the HPI. Past Medical History Past Medical History: Cancer, Diabetes Mellitus, Eye Disorder, Hyperlipidemia, Hypertension, Seizure Disorder, Supraventricular Tachycardia (SVT) Additional Past Medical History / Comment(s): Pt recently admitted to [facility] on 09/17/19 with intractable nausea/vomitting and pain associated with cancer. Other hx: 06/2018 colon cancer with lymph node involvement with chemotherapy last 3-4 weeks ago and had radiation tx to lymph node, NIDDM type II, neuropathy bilateral hands and feet, falls, chronic generalized pain, R eye decreased vision-pt things d/t cataract, sepsis d/t ruptured appendix, iron anemia, History of Any Multi-Drug Resistant Organisms: None Reported Past Surgical History: Appendectomy, Bowel Resection, Hernia Repair, Orthopedic Surgery, Tonsillectomy Additional Past Surgical History / Comment(s): 08/11/18 cervical lymph node bx, exploratory laparotomy/appy and R colectomy, umbilical hernia repair, UVPPP, R knee arthroscopy, port a caths-currently L chest. Past Anesthesia/Blood Transfusion Reactions: Motion Sickness Past Psychological History: Bipolar, Depression, Schizoaffective Disorder, Schizophrenia Smoking Status: Former smoker Past Alcohol Use History: None Reported Past Drug Use History: Marijuana - Past Family History Father Family Medical History: Liver Disease Additional Family Medical History / Comment(s): Father had ETOH abuse. He from cirrhosis. Mother Family Medical History: Congestive Heart Failure (CHF), Pulmonary Embolus Additional Family Medical History / Comment(s): Mother from CHF <Buddy Mendoza - Last Filed: 10/18/19 00:27> General Exam Limitations: no limitations General appearance: alert, in no apparent distress Head exam: Present: atraumatic, normocephalic ENT exam: Present: normal oropharynx Respiratory exam: Present: normal lung sounds bilaterally. Absent: respiratory distress, wheezes, rales, rhonchi, stridor Cardiovascular Exam: Present: regular rate, normal rhythm, normal heart sounds. Absent: systolic murmur, diastolic murmur, rubs, gallop GI/Abdominal exam: Present: soft. Absent: tenderness, guarding, rebound Extremities exam: Present: normal inspection. Absent: pedal edema Neurological exam: Present: alert Psychiatric exam: Present: normal affect. Absent: agitated, anxious, flat affect, manic, homicidal ideation Skin exam: Present: warm, dry, intact, normal color. Absent: rash <Buddy Mendoza - Last Filed: 10/18/19 00:27> Course <Dawood Rothman - Last Filed: 10/18/19 16:46> Vital Signs 10/17/19 10/18/19 10/18/19 23:32 06:11 08:46 Temperature 97.3 F L Pulse Rate 101 H 100 80 Respiratory 16 18 16 Rate Blood Pressure 136/73 116/63 133/86 O2 Sat by Pulse 99 98 99 Oximetry 10/18/19 13:30 Temperature Pulse Rate 71 Respiratory 16 Rate Blood Pressure 129/79 O2 Sat by Pulse 99 Oximetry - Reevaluation(s) Reevaluation #1: 10/18/19 16:45 Medical record reviewed and patient was seen by psychiatry here in the ER (Dawood Rothman) Medical Decision Making <Dawood Rothman - Last Filed: 10/18/19 16:46> - Medical Decision Making 44 male sustained days stable for discharge we'll re-dose patient psychiatric medications (Dawood Rothman) - Lab Data Lab Results 10/18/19 Range/Units 01:32 Urine Opiates Screen Detected H (NotDetected) Ur Oxycodone Screen Not Detected (NotDetected) Urine Methadone Screen Not Detected (NotDetected) Ur Propoxyphene Screen Not Detected (NotDetected) Ur Barbiturates Screen Not Detected (NotDetected) U Tricyclic Antidepress Not Detected (NotDetected) Ur Phencyclidine Scrn Not Detected (NotDetected) Ur Amphetamines Screen Not Detected (NotDetected) U Methamphetamines Scrn Not Detected (NotDetected) U Benzodiazepines Scrn Not Detected (NotDetected) Urine Cocaine Screen Not Detected (NotDetected) U Marijuana (THC) Screen Detected H (NotDetected) Disposition <Buddy Mendoza - Last Filed: 10/18/19 00:27> Is patient prescribed a controlled substance at d/c from ED?: No <Dawood Rothman - Last Filed: 10/18/19 16:46> Clinical Impression: Cancer associated pain, Depression Disposition: HOME SELF-CARE Condition: Fair Instructions (If sedation given, give patient instructions): Mood Disorders (ED), Depression (ED) Prescriptions: DULoxetine HCL [Cymbalta] 120 mg PO DAILY #60 cap Referrals: None,Stated [Primary Care Provider] - 1-2 days
[2019-10-18 02:05] LABS: Amphetamine Screen,Urine Not Detected (NotDetected); Barbiturate Screen,Urine Not Detected (NotDetected); Benzodiazepines Screen,Urine Not Detected (NotDetected); Cocaine Screen,Urine Not Detected (NotDetected); Methadone Screen, Urine Not Detected (NotDetected); Opiate Screen,Urine Detected (NotDetected); Oxycodone Screen, Urine Not Detected (NotDetected); Phencyclidine Screen,Urine Not Detected (NotDetected); Tricyclic Antidepressant,Urine Not Detected (NotDetected); Urn Cannabinoid Scrn Detected (NotDetected)
[2019-10-18] MEDS ORDERED: ONDANSETRON 4 MG/2 ML VIAL IVP STA (03:50)
[2019-10-18] MEDS ORDERED: ONDANSETRON ODT 4 MG TAB PO STA (03:56)
[2019-10-18] MEDS ORDERED: HYDROcodone/APAP 10-325MG 1 EACH TAB PO ONE (08:42)
[2019-10-18 08:47] VITALS: RESP 16
[2019-10-18] MEDS ORDERED: metFORMIN 850 MG TAB PO SCH ×2 (09:27→12:30)
[2019-10-18] MEDS ORDERED: FERROUS SULFATE 325 MG TAB PO SCH (09:30)
[2019-10-18] MEDS ORDERED: levETIRAcetam 500 MG TAB PO SCH (09:30)
[2019-10-18 15:11] VITALS: BP 129/79; PULSE 71
== END 2019-10-18 16:47 | disposition home or self-care (01) ==
LOC: EC 23:30
DX: F32.9 Major depressive disorder, single episode, unspecified (principal); G89.3 Neoplasm related pain (acute) (chronic); F25.9 Schizoaffective disorder, unspecified; E78.5 Hyperlipidemia, unspecified; I10 Essential (primary) hypertension; E11.42 Type 2 diabetes mellitus with diabetic polyneuropathy; D64.9 Anemia, unspecified; Z79.899 Other long term (current) drug therapy; Z79.84 Long term (current) use of oral hypoglycemic drugs; Z88.8 Allergy status to other drugs, medicaments and biological substances; Z91.013 Allergy to seafood; Z91.048 Other nonmedicinal substance allergy status; Z87.891 Personal history of nicotine dependence; Z85.038 Personal history of other malignant neoplasm of large intestine; Z92.21 Personal history of antineoplastic chemotherapy; Z92.3 Personal history of irradiation; Z90.49 Acquired absence of other specified parts of digestive tract
CPT/HCPCS: 80306; 82075; 99284

== ENCOUNTER 2019-10-25 21:39 | Emergency (ER) | payer MEDICARE, OTHER ==
[2019-10-25 21:52] VITALS: RESP 18
[2019-10-25] MEDS ORDERED: HYDROmorphone 1 MG/ML 1 ML SYRINGE IVP STA (23:40)
[2019-10-25] MEDS ORDERED: ONDANSETRON 4 MG/2 ML VIAL IVP STA (23:40)
[2019-10-25] MEDS ORDERED: SODIUM CHLORIDE 0.9% 1,000 ML IV STA (23:40)
[2019-10-26 00:14] LABS: Anisocytosis Slight; Basophils % (A) 1 %; Eosinophils # (A) 0.1 k/uL (0-0.7); Eosinophils % (A) 4 %; HCT 33.9 % (39.0-53.0); HGB 10.7 gm/dL (13.0-17.5); Lymphocytes # (A) 0.4 k/uL (1.0-4.8); Lymphocytes % (A) 24 %; MCH 24.3 pg (25.0-35.0); MCHC 31.6 g/dL (31.0-37.0); Mean Platelet Volume 6.8; Microcytosis Slight; Monocytes % (A) 3 %; Neutrophils % (A) 64 %; Platelet Count 548 k/uL (150-450); RDW 16.4 % (11.5-15.5); WBC 1.5 k/uL (3.8-10.6)
[2019-10-26 00:27] LABS: AST 31 U/L (17-59); African American GFR (CKD) >90 (>60 ml/min/1.73 sqM); Albumin 2.8 g/dL (3.5-5.0); Alkaline Phosphatase 303 U/L (38-126); Amylase 35 U/L (30-110); Anion Gap 10 mmol/L; Blood Urea Nitrogen 13 mg/dL (9-20); Calcium 8.7 mg/dL (8.4-10.2); Carbon Dioxide 20 mmol/L (22-30); Chloride 102 mmol/L (98-107); Glucose 174 mg/dL (74-99); Non-African American GFR(CKD) >90 (>60 ml/min/1.73 sqM); Potassium 3.2 mmol/L (3.5-5.1); Sodium 132 mmol/L (137-145); Total Bilirubin 0.6 mg/dL (0.2-1.3); Total Protein 5.4 g/dL (6.3-8.2)
[2019-10-26 00:36] LABS: ALT 28 U/L (4-49)
[2019-10-26] MEDS ORDERED: POTASSIUM CHLORIDE ER 20 MEQ TAB.ER PO STA (01:06)
--- NOTE | 2019-10-26 01:11 | ED ---
General Adult HPI - General Source: patient, police, EMS Mode of arrival: EMS Limitations: no limitations <Swapna Nascimento - Last Filed: 10/26/19 03:40> <Pablo Charlton - Last Filed: 10/26/19 07:58> - General Chief complaint: Psychiatric Symptoms Stated complaint: Suicidal Time Seen by Provider: 10/25/19 22:23 - History of Present Illness Initial comments: 44-year-old male patient with metastatic colon cancer presents to the emergency department today for evaluation of depression and suicidal ideation. Patient states that he lives with chronic abdominal pain related to his diagnosis. States that he has been out of his pain medication for the last 2 days. States that the pain has been so severe he has been increasingly depressed and having thoughts of killing himself. He has no current plan to take his life. Patient states he is also had some vomiting over the last couple days. States he is unable to keep down any food or fluids. Last chemo treatment was on Sunday seems that this triggered the vomiting. He denies any fevers or chills. Denies any new abdominal pain. Denies history of suicide attempt. States he does take depression medication and has had suicidal thoughts are most of his adult life. Patient denies any recent rash, cough, shortness of breath, chest pain, diarrhea, constipation, back pain, numbness, tingling, dizziness, weakness, hematuria, dysuria, urinary urgency, urinary frequency, headache, visual changes, or any other complaints. (Swapna Nascimento) - Related Data Home Medications Medication Instructions Recorded Confirmed Atorvastatin Calcium [Lipitor] 20 mg PO HS 09/14/16 10/22/19 metFORMIN HCL [Glucophage] 850 mg PO AC-TID 09/14/16 10/22/19 Atenolol 25 mg PO DAILY 07/04/18 10/22/19 Lisinopril [Zestril] 10 mg PO HS 07/04/18 10/22/19 Cholecalciferol (Vitamin D3) 2,000 unit PO DAILY 01/09/19 10/22/19 [Vitamin D3] Multivitamins, Thera [Multivitamin 1 tab PO DAILY 01/09/19 10/22/19 (formulary)] Ferrous Sulfate [Iron] 325 mg PO TID 09/17/19 10/22/19 Loperamide [Imodium] 2 - 4 mg PO DIRECTED PRN 09/17/19 10/22/19 Loratadine [Claritin] 10 mg PO DAILY PRN 09/17/19 10/22/19 Ondansetron HCl [Zofran] 8 mg PO BID PRN 09/17/19 10/22/19 Prochlorperazine [Compazine] 10 mg PO Q6H PRN 09/17/19 10/22/19 risperiDONE [RisperDAL] 1 mg PO BID 09/17/19 10/22/19 HYDROcodone/APAP 10-325MG [[place] 1 tab PO Q4HR PRN 10/17/19 10/22/19 10-325] levETIRAcetam [Keppra] 500 mg PO BID 10/22/19 10/22/19 Previous Rx's Medication Instructions Recorded Gabapentin [Neurontin] 300 mg PO HS #30 cap 10/03/19 Pyridoxine [Vitamin B-6] 50 mg PO BID #60 tab 10/03/19 levETIRAcetam [Keppra] 500 mg PO Q12HR #20 tab 10/14/19 DULoxetine HCL [Cymbalta] 120 mg PO DAILY #60 cap 10/18/19 Allergies Allergy/AdvReac Type Severity Reaction Status Date / Time carbamazepine [From Tegretol] Allergy Severe Anaphylaxis Verified 10/22/19 09:54 lithium [[place]] Allergy Severe Anaphylaxis Verified 10/22/19 09:54 shellfish derived Allergy Severe Anaphylaxis Verified 10/22/19 09:54 aspartame Allergy SWELLING Verified 10/22/19 09:54 OF THROAT citalopram hydrobromide AdvReac Intermediate Nausea & Verified 10/22/19 09:54 [From Celexa] Vomiting Review of Systems ROS Other: All systems not noted in ROS Statement are negative. <Swapna Nascimento - Last Filed: 10/26/19 03:40> ROS Other: All systems not noted in ROS Statement are negative. <Pablo Charlton - Last Filed: 10/26/19 07:58> ROS Statement: Those systems with pertinent positive or pertinent negative responses have been documented in the HPI. Past Medical History Past Medical History: Cancer, Diabetes Mellitus, Eye Disorder, Hyperlipidemia, Hypertension, Seizure Disorder, Supraventricular Tachycardia (SVT) Additional Past Medical History / Comment(s): Pt recently admitted to [facility] on 09/17/19 with intractable nausea/vomitting and pain associated with cancer. Other hx: 06/2018 colon cancer with lymph node involvement with chemotherapy last 3-4 weeks ago and had radiation tx to lymph node, NIDDM type II, neuropathy bilateral hands and feet, falls, chronic generalized pain, R eye decreased vision-pt things d/t cataract, sepsis d/t ruptured appendix, iron anemia, History of Any Multi-Drug Resistant Organisms: None Reported Past Surgical History: Appendectomy, Bowel Resection, Hernia Repair, Orthopedic Surgery, Tonsillectomy Additional Past Surgical History / Comment(s): 08/11/18 cervical lymph node bx, exploratory laparotomy/appy and R colectomy, umbilical hernia repair, UVPPP, R knee arthroscopy, port a caths-currently L chest. Past Anesthesia/Blood Transfusion Reactions: Motion Sickness Past Psychological History: Bipolar, Depression, Schizoaffective Disorder, Schizophrenia Smoking Status: Former smoker - Past Family History Father Family Medical History: Liver Disease Additional Family Medical History / Comment(s): Father had ETOH abuse. He from cirrhosis. Mother Family Medical History: Congestive Heart Failure (CHF), Pulmonary Embolus Additional Family Medical History / Comment(s): Mother from CHF <Swapna Nascimento - Last Filed: 10/26/19 03:40> General Exam Limitations: no limitations General appearance: alert, in no apparent distress, other (This is a well- developed, well-nourished adult male patient in mild distress related to pain. Vital signs upon presentation are temperature 96.6F, pulse 107, respirations 18, blood pressure 117/74, pulse ox 100% on room air.) Respiratory exam: Present: normal lung sounds bilaterally. Absent: respiratory distress, wheezes, rales, rhonchi, stridor Cardiovascular Exam: Present: regular rate, normal rhythm, normal heart sounds. Absent: systolic murmur, diastolic murmur, rubs, gallop, clicks GI/Abdominal exam: Present: soft, tenderness (Generalized), normal bowel sounds. Absent: distended, guarding, rebound, rigid Neurological exam: Present: alert, oriented X3, CN II-XII intact Psychiatric exam: Present: normal affect, normal mood Skin exam: Present: warm, dry, intact, normal color. Absent: rash <Swapna Nascimento - Last Filed: 10/26/19 03:40> Course <Pablo Charlton - Last Filed: 10/26/19 07:58> Vital Signs 10/25/19 10/26/19 10/26/19 21:47 01:00 06:32 Temperature 96.6 F L 98.2 F Pulse Rate 107 H 105 H 110 H Respiratory 18 18 18 Rate Blood Pressure 117/74 113/56 115/61 O2 Sat by Pulse 100 98 100 Oximetry - Reevaluation(s) Reevaluation #1: 10/26/19 07:56 Patient has been medically cleared and was evaluated by psychiatric department. Patient currently isn't suicidal or homicidal. His safety plan has been established and he is in agreement. He will be discharged. He currently is not a risk to himself or anyone else. (Pablo Charlton) Medical Decision Making - Lab Data Result diagrams: 10/26/19 00:06 10/26/19 00:06 <Swapna Nascimento - Last Filed: 10/26/19 03:40> - Lab Data Result diagrams: 10/26/19 00:06 10/26/19 00:06 <Pablo Charlton - Last Filed: 10/26/19 07:58> - Medical Decision Making 44-year-old male patient with past medical history significant for metastatic colon cancer currently receiving chemotherapy, last dose on Sunday presents to the emergency department for depression and suicidal ideation. Patient is also reporting generalized abdominal pain which is chronic since his diagnosis. Also reporting vomiting for the last couple days since receiving his chemo treatment. Labs reviewed and showed mostly chronic changes. We did replace potassium. He is given IV fluids, pain medication, nausea medication. Patient had no episodes of vomiting here so he is cleared medically and seen by emergency psychiatric services. We are still awaiting determination from emergency psychiatric services. Care will be handed over to my attending Dr. Cabral at 0340. (Swapna Nascimento) - Lab Data Lab Results 10/26/19 10/26/19 10/26/19 Range/Units 00:06 00:06 01:11 WBC 1.5 L (3.8-10.6) k/uL RBC 4.40 (4.30-5.90) m/uL Hgb 10.7 L (13.0-17.5) gm/dL Hct 33.9 L (39.0-53.0) % MCV 77.0 L (80.0-100.0) fL MCH 24.3 L (25.0-35.0) pg MCHC 31.6 (31.0-37.0) g/dL RDW 16.4 H (11.5-15.5) % Plt Count 548 H (150-450) k/uL Neutrophils % 64 % Lymphocytes % 24 % Monocytes % 3 % Eosinophils % 4 % Basophils % 1 % Neutrophils # 1.0 L (1.3-7.7) k/uL Lymphocytes # 0.4 L (1.0-4.8) k/uL Monocytes # 0.0 (0-1.0) k/uL Eosinophils # 0.1 (0-0.7) k/uL Basophils # 0.0 (0-0.2) k/uL Anisocytosis Slight Microcytosis Slight Sodium 132 L (137-145) mmol/L Potassium 3.2 L (3.5-5.1) mmol/L Chloride 102 (98-107) mmol/L Carbon Dioxide 20 L (22-30) mmol/L Anion Gap 10 mmol/L BUN 13 (9-20) mg/dL Creatinine 0.67 (0.66-1.25) mg/dL Est GFR (CKD-EPI)AfAm >90 (>60 ml/min/1.73 sqM) Est GFR (CKD-EPI)NonAf >90 (>60 ml/min/1.73 sqM) Glucose 174 H (74-99) mg/dL Calcium 8.7 (8.4-10.2) mg/dL Total Bilirubin 0.6 (0.2-1.3) mg/dL AST 31 (17-59) U/L ALT 28 (4-49) U/L Alkaline Phosphatase 303 H (38-126) U/L Total Protein 5.4 L (6.3-8.2) g/dL Albumin 2.8 L (3.5-5.0) g/dL Amylase 35 (30-110) U/L Lipase 212 (23-300) U/L Urine Color Yellow Urine Appearance Clear (Clear) Urine pH 6.0 (5.0-8.0) Ur Specific [place] 1.026 (1.001-1.035) Urine Protein Trace H (Negative) Urine Glucose (UA) Negative (Negative) Urine Ketones 1+ H (Negative) Urine Blood Negative (Negative) Urine Nitrite Negative (Negative) Urine Bilirubin Negative (Negative) Urine Urobilinogen <2.0 (<2.0) mg/dL Ur Leukocyte Esterase Negative (Negative) Urine Opiates Screen (NotDetected) Ur Oxycodone Screen (NotDetected) Urine Methadone Screen (NotDetected) Ur Propoxyphene Screen (NotDetected) Ur Barbiturates Screen (NotDetected) U Tricyclic Antidepress (NotDetected) Ur Phencyclidine Scrn (NotDetected) Ur Amphetamines Screen (NotDetected) U Methamphetamines Scrn (NotDetected) U Benzodiazepines Scrn (NotDetected) Urine Cocaine Screen (NotDetected) U Marijuana (THC) Screen (NotDetected) 10/26/19 Range/Units 01:11 WBC (3.8-10.6) k/uL RBC (4.30-5.90) m/uL Hgb (13.0-17.5) gm/dL Hct (39.0-53.0) % MCV (80.0-100.0) fL MCH (25.0-35.0) pg MCHC (31.0-37.0) g/dL RDW (11.5-15.5) % Plt Count (150-450) k/uL Neutrophils % % Lymphocytes % % Monocytes % % Eosinophils % % Basophils % % Neutrophils # (1.3-7.7) k/uL Lymphocytes # (1.0-4.8) k/uL Monocytes # (0-1.0) k/uL Eosinophils # (0-0.7) k/uL Basophils # (0-0.2) k/uL Anisocytosis Microcytosis Sodium (137-145) mmol/L Potassium (3.5-5.1) mmol/L Chloride (98-107) mmol/L Carbon Dioxide (22-30) mmol/L Anion Gap mmol/L BUN (9-20) mg/dL Creatinine (0.66-1.25) mg/dL Est GFR (CKD-EPI)AfAm (>60 ml/min/1.73 sqM) Est GFR (CKD-EPI)NonAf (>60 ml/min/1.73 sqM) Glucose (74-99) mg/dL Calcium (8.4-10.2) mg/dL Total Bilirubin (0.2-1.3) mg/dL AST (17-59) U/L ALT (4-49) U/L Alkaline Phosphatase (38-126) U/L Total Protein (6.3-8.2) g/dL Albumin (3.5-5.0) g/dL Amylase (30-110) U/L Lipase (23-300) U/L Urine Color Urine Appearance (Clear) Urine pH (5.0-8.0) Ur Specific [place] (1.001-1.035) Urine Protein (Negative) Urine Glucose (UA) (Negative) Urine Ketones (Negative) Urine Blood (Negative) Urine Nitrite (Negative) Urine Bilirubin (Negative) Urine Urobilinogen (<2.0) mg/dL Ur Leukocyte Esterase (Negative) Urine Opiates Screen Detected H (NotDetected) Ur Oxycodone Screen Not Detected (NotDetected) Urine Methadone Screen Not Detected (NotDetected) Ur Propoxyphene Screen Not Detected (NotDetected) Ur Barbiturates Screen Not Detected (NotDetected) U Tricyclic Antidepress Not Detected (NotDetected) Ur Phencyclidine Scrn Not Detected (NotDetected) Ur Amphetamines Screen Not Detected (NotDetected) U Methamphetamines Scrn Not Detected (NotDetected) U Benzodiazepines Scrn Not Detected (NotDetected) Urine Cocaine Screen Not Detected (NotDetected) U Marijuana (THC) Screen Detected H (NotDetected) Disposition <Swapna Nascimento - Last Filed: 10/26/19 03:40> Is patient prescribed a controlled substance at d/c from ED?: No <Pablo Charlton - Last Filed: 10/26/19 07:58> Clinical Impression: Situational depression, Adjustment reaction of adult life Disposition: HOME SELF-CARE Condition: Good Instructions (If sedation given, give patient instructions): Depression (ED) Referrals: None,Stated [Primary Care Provider] - 1-2 days
[2019-10-26 01:22] LABS: Appearance,Urine Clear (Clear); Bilirubin,Urine Negative (Negative); Blood,Urine Negative (Negative); Color,Urine Yellow; Glucose,Urine (UA) Negative (Negative); Ketones,Urine 1+ (Negative); Leukocyte Esterase,Urine Negative (Negative); Nitrite,Urine Negative (Negative); Protein,Urine Trace (Negative); Specific Gravity,Urine 1.026 (1.001-1.035); Urobilinogen,Urine <2.0 mg/dL (<2.0)
[2019-10-26 03:29] LABS: Amphetamine Screen,Urine Not Detected (NotDetected); Barbiturate Screen,Urine Not Detected (NotDetected); Benzodiazepines Screen,Urine Not Detected (NotDetected); Cocaine Screen,Urine Not Detected (NotDetected); Methadone Screen, Urine Not Detected (NotDetected); Opiate Screen,Urine Detected (NotDetected); Oxycodone Screen, Urine Not Detected (NotDetected); Phencyclidine Screen,Urine Not Detected (NotDetected); Tricyclic Antidepressant,Urine Not Detected (NotDetected); Urn Cannabinoid Scrn Detected (NotDetected)
[2019-10-26 08:22] VITALS: BP 116/78; PULSE 101; TEMP 98.8
== END 2019-10-26 08:25 | disposition home or self-care (01) ==
LOC: EC 21:39
DX: F43.21 Adjustment disorder with depressed mood (principal); R45.851 Suicidal ideations; G40.909 Epilepsy, unspecified, not intractable, without status epilepticus; F25.9 Schizoaffective disorder, unspecified; E11.9 Type 2 diabetes mellitus without complications; E78.5 Hyperlipidemia, unspecified; G89.29 Other chronic pain; I10 Essential (primary) hypertension; R10.84 Generalized abdominal pain; R11.10 Vomiting, unspecified; Z79.84 Long term (current) use of oral hypoglycemic drugs; Z79.899 Other long term (current) drug therapy; Z92.3 Personal history of irradiation; Z88.8 Allergy status to other drugs, medicaments and biological substances; Z91.013 Allergy to seafood; Z90.49 Acquired absence of other specified parts of digestive tract; Z85.038 Personal history of other malignant neoplasm of large intestine; Z92.21 Personal history of antineoplastic chemotherapy; Z87.891 Personal history of nicotine dependence
CPT/HCPCS: 36415; 80053; 80306; 81003; 82075; 82150; 83690; 85025; 96361; 96374; 96375; 99285

== ENCOUNTER 2019-10-28 00:52 | Inpatient (IN) | payer MEDICARE, OTHER ==
[2019-10-28] MEDS ORDERED: SODIUM CHLORIDE 0.9% 1,000 ML IV STA ×2 (01:11→02:19)
[2019-10-28 01:34] LABS: Anisocytosis Slight; HCT 33.2 % (39.0-53.0); HGB 11.1 gm/dL (13.0-17.5); Hypochromasia Slight; MCH 25.7 pg (25.0-35.0); MCHC 33.4 g/dL (31.0-37.0); Mean Platelet Volume 6.7; Microcytosis Slight; Platelet Count 581 k/uL (150-450); RBC 4.31 m/uL (4.30-5.90); RDW 16.1 % (11.5-15.5); WBC 5.6 k/uL (3.8-10.6)
[2019-10-28] MEDS ORDERED: ONDANSETRON 4 MG/2 ML VIAL IVP STA (01:37)
[2019-10-28] MEDS ORDERED: HYDROmorphone 1 MG/ML 1 ML SYRINGE IVP STA (01:37)
--- NOTE | 2019-10-28 01:39 | ED ---
General Adult HPI - General Chief complaint: Fall Stated complaint: Fall Time Seen by Provider: 10/28/19 00:54 Source: patient, EMS Mode of arrival: EMS Limitations: altered mental status - History of Present Illness Initial comments: 44 year-old male patient presents to the emergency department today for evaluation after having what sounds like a syncopal episode. Patient states that he was walking to the bathroom. Patient states that his roommate reports that he fell for point the door hitting himself in the head and falling to the floor. Patient does not remember this happening. He does have history of seizures but his roommate did not mention anything about body shaking. He also has history of metastatic colon cancer, last chemo treatment was on Sunday. Not currently reporting any abdominal pain. Patient is reporting headache, neck king n, did have an episode of vomiting. Denies any blurred or double vision. Denies any dizziness or weakness. States his neck pain is radiating into the left shoulder. Patient denies any recent rash, fever, chills, cough, shortness of breath, chest pain, abdominal pain, diarrhea, constipation, numbness, tingling, hematuria, dysuria, urinary urgency, urinary frequency, or any other complaints. - Related Data Home Medications Medication Instructions Recorded Confirmed Atorvastatin Calcium [Lipitor] 20 mg PO HS 09/14/16 10/22/19 metFORMIN HCL [Glucophage] 850 mg PO AC-TID 09/14/16 10/22/19 Atenolol 25 mg PO DAILY 07/04/18 10/22/19 Lisinopril [Zestril] 10 mg PO HS 07/04/18 10/22/19 Cholecalciferol (Vitamin D3) 2,000 unit PO DAILY 01/09/19 10/22/19 [Vitamin D3] Multivitamins, Thera [Multivitamin 1 tab PO DAILY 01/09/19 10/22/19 (formulary)] Ferrous Sulfate [Iron] 325 mg PO TID 09/17/19 10/22/19 Loperamide [Imodium] 2 - 4 mg PO DIRECTED PRN 09/17/19 10/22/19 Loratadine [Claritin] 10 mg PO DAILY PRN 09/17/19 10/22/19 Ondansetron HCl [Zofran] 8 mg PO BID PRN 09/17/19 10/22/19 Prochlorperazine [Compazine] 10 mg PO Q6H PRN 09/17/19 10/22/19 risperiDONE [RisperDAL] 1 mg PO BID 09/17/19 10/22/19 HYDROcodone/APAP 10-325MG [[place] 1 tab PO Q4HR PRN 10/17/19 10/22/19 10-325] levETIRAcetam [Keppra] 500 mg PO BID 10/22/19 10/22/19 Previous Rx's Medication Instructions Recorded Gabapentin [Neurontin] 300 mg PO HS #30 cap 10/03/19 Pyridoxine [Vitamin B-6] 50 mg PO BID #60 tab 10/03/19 levETIRAcetam [Keppra] 500 mg PO Q12HR #20 tab 10/14/19 DULoxetine HCL [Cymbalta] 120 mg PO DAILY #60 cap 10/18/19 Allergies Allergy/AdvReac Type Severity Reaction Status Date / Time carbamazepine [From Tegretol] Allergy Severe Anaphylaxis Verified 10/27/19 08:34 lithium [[place]] Allergy Severe Anaphylaxis Verified 10/27/19 08:34 shellfish derived Allergy Severe Anaphylaxis Verified 10/27/19 08:34 aspartame Allergy SWELLING Verified 10/27/19 08:34 OF THROAT citalopram hydrobromide AdvReac Intermediate Nausea & Verified 10/27/19 08:34 [From Celexa] Vomiting Review of Systems ROS Statement: Those systems with pertinent positive or pertinent negative responses have been documented in the HPI. ROS Other: All systems not noted in ROS Statement are negative. Past Medical History Past Medical History: Cancer, Diabetes Mellitus, Eye Disorder, Hyperlipidemia, Hypertension, Seizure Disorder, Supraventricular Tachycardia (SVT) Additional Past Medical History / Comment(s): Pt recently admitted to [facility] on 09/17/19 with intractable nausea/vomitting and pain associated with cancer. Other hx: 06/2018 colon cancer with lymph node involvement with chemotherapy last 3-4 weeks ago and had radiation tx to lymph node, NIDDM type II, neuropathy bilateral hands and feet, falls, chronic generalized pain, R eye decreased vision-pt things d/t cataract, sepsis d/t ruptured appendix, iron anemia, History of Any Multi-Drug Resistant Organisms: None Reported Past Surgical History: Appendectomy, Bowel Resection, Hernia Repair, Orthopedic Surgery, Tonsillectomy Additional Past Surgical History / Comment(s): 08/11/18 cervical lymph node bx, exploratory laparotomy/appy and R colectomy, umbilical hernia repair, UVPPP, R knee arthroscopy, port a caths-currently L chest. Past Anesthesia/Blood Transfusion Reactions: Motion Sickness Past Psychological History: Bipolar, Depression, Schizoaffective Disorder, Schizophrenia Smoking Status: Former smoker Past Alcohol Use History: None Reported Past Drug Use History: Marijuana - Past Family History Father Family Medical History: Liver Disease Additional Family Medical History / Comment(s): Father had ETOH abuse. He from cirrhosis. Mother Family Medical History: Congestive Heart Failure (CHF), Pulmonary Embolus Additional Family Medical History / Comment(s): Mother from CHF General Exam Limitations: altered mental status General appearance: alert, in no apparent distress, other (This is a well- developed, well-nourished adult male patient in no acute distress. Vital signs upon presentation are temperature 98.5F, pulse 107, respirations 16, blood pressure 97/71, pulse ox 97% on room air.) Head exam: Present: atraumatic, normocephalic, normal inspection Eye exam: Present: normal appearance, PERRL, EOMI, other (There is clouding of the left pupil). Absent: scleral icterus, conjunctival injection, periorbital swelling, periorbital tenderness ENT exam: Present: normal exam, normal oropharynx, mucous membranes moist Neck exam: Present: normal inspection, other (There is midline cervical spinal tenderness, no bony step-off or deformity noted to for midline palpation.). Absent: tenderness, meningismus, full ROM (C-collar placed), lymphadenopathy Respiratory exam: Present: normal lung sounds bilaterally. Absent: respiratory distress, wheezes, rales, rhonchi, stridor Cardiovascular Exam: Present: regular rate, normal rhythm, normal heart sounds. Absent: systolic murmur, diastolic murmur, rubs, gallop, clicks GI/Abdominal exam: Present: soft, normal bowel sounds. Absent: distended, tenderness, guarding, rebound, rigid Extremities exam: Present: normal inspection, full ROM, normal capillary refill, other (Skin to the extremities is pink, warm, dry. Cap refills less than 3 seconds. Radial pulses 2+ and equal bilaterally.). Absent: tenderness, pedal edema, joint swelling, calf tenderness Back exam: Present: normal inspection. Absent: vertebral tenderness Neurological exam: Present: alert, oriented X3, CN II-XII intact Psychiatric exam: Present: normal affect, normal mood Skin exam: Present: warm, dry, intact, normal color. Absent: rash Course Vital Signs 10/28/19 10/28/19 10/28/19 00:55 01:46 02:29 Temperature 98.5 F Pulse Rate 107 H 100 Respiratory 16 22 Rate Blood Pressure 97/71 78/54 Blood Pressure 76/56 [Right Arm Standing] Blood Pressure 92/60 [Right Arm Supine] Blood Pressure 98/61 [Right Arm] O2 Sat by Pulse 97 97 Oximetry EKG Findings - EKG Comments: EKG Findings:: EKG obtained at 0109 shows sinus tachycardia. Ventricular rate of 102, RI interval 152, QRS duration 88, QT 344, QTC 448. No evidence of ST elevation or depression. Medical Decision Making - Medical Decision Making 44-year-old male patient with past medical history significant for seizures, metastatic colon cancer with last chemo dose being Sunday presents to the emergency department today after having a syncopal episode at home. Patient states he is walking in the hallway next thing he knew he was waking up on the floor. His roommate told him that he had fallen and struck his head on the wal l. Labs here today revealed normal white blood cell count and hypokalemia. CT brain and C-spine was negative. Chest x-ray shows no acute cardiopulmonary process. Patient did have positive orthostatic vital signs. He is given IV fluids in the department, blood pressure remained borderline low sodium we'll admit to the hospital with IV fluids ordered. I did discuss all findings and results with the patient. He is agreeable. - Lab Data Result diagrams: 10/28/19 01:26 10/28/19 01:26 Lab Results 10/28/19 10/28/19 10/28/19 Range/Units 01:26 01:26 01:26 WBC 5.6 (3.8-10.6) k/uL RBC 4.31 (4.30-5.90) m/uL Hgb 11.1 L (13.0-17.5) gm/dL Hct 33.2 L (39.0-53.0) % MCV 77.0 L (80.0-100.0) fL MCH 25.7 (25.0-35.0) pg MCHC 33.4 (31.0-37.0) g/dL RDW 16.1 H (11.5-15.5) % Plt Count 581 H (150-450) k/uL Neutrophils % (Manual) 72 % Band Neutrophils % 9 % Lymphocytes % (Manual) 10 % Monocytes % (Manual) 7 % Eosinophils % (Manual) 2 % Metamyelocytes % 1 % Myelocytes % 1 % Neutrophils # (Manual) 4.50 (1.3-7.7) k/uL Lymphocytes # (Manual) 0.56 L (1.0-4.8) k/uL Monocytes # (Manual) 0.39 (0-1.0) k/uL Eosinophils # (Manual) 0.11 (0-0.7) k/uL Metamyelocytes # (Man) 0.06 H (0) k/uL Myelocytes # (Manual) 0.06 H (0) k/uL Nucleated RBCs 0 (0-0) /100 WBC Manual Slide Review Performed Hypochromasia Slight Poikilocytosis (manual Present Anisocytosis Slight Microcytosis Slight PT 12.3 H (9.0-12.0) sec INR 1.2 H (<1.2) APTT 26.4 (22.0-30.0) sec Sodium 132 L (137-145) mmol/L Potassium 3.2 L (3.5-5.1) mmol/L Chloride 104 (98-107) mmol/L Carbon Dioxide 18 L (22-30) mmol/L Anion Gap 10 mmol/L BUN 13 (9-20) mg/dL Creatinine 0.79 (0.66-1.25) mg/dL Est GFR (CKD-EPI)AfAm >90 (>60 ml/min/1.73 sqM) Est GFR (CKD-EPI)NonAf >90 (>60 ml/min/1.73 sqM) Glucose 148 H (74-99) mg/dL Calcium 9.2 (8.4-10.2) mg/dL Total Bilirubin 0.3 (0.2-1.3) mg/dL AST 33 (17-59) U/L ALT 21 (4-49) U/L Alkaline Phosphatase 346 H (38-126) U/L Troponin I (0.000-0.034) ng/mL Total Protein 5.4 L (6.3-8.2) g/dL Albumin 2.8 L (3.5-5.0) g/dL Urine Color Urine Appearance (Clear) Urine pH (5.0-8.0) Ur Specific [place] (1.001-1.035) Urine Protein (Negative) Urine Glucose (UA) (Negative) Urine Ketones (Negative) Urine Blood (Negative) Urine Nitrite (Negative) Urine Bilirubin (Negative) Urine Urobilinogen (<2.0) mg/dL Ur Leukocyte Esterase (Negative) Urine RBC (0-5) /hpf Urine WBC (0-5) /hpf Ur Squamous Epith Cells (0-4) /hpf Calcium Oxalate Crystal (None) /hpf Urine Bacteria (None) /hpf Urine Mucus (None) /hpf 10/28/19 10/28/19 Range/Units 01:26 02:08 WBC (3.8-10.6) k/uL RBC (4.30-5.90) m/uL Hgb (13.0-17.5) gm/dL Hct (39.0-53.0) % MCV (80.0-100.0) fL MCH (25.0-35.0) pg MCHC (31.0-37.0) g/dL RDW (11.5-15.5) % Plt Count (150-450) k/uL Neutrophils % (Manual) % Band Neutrophils % % Lymphocytes % (Manual) % Monocytes % (Manual) % Eosinophils % (Manual) % Metamyelocytes % % Myelocytes % % Neutrophils # (Manual) (1.3-7.7) k/uL Lymphocytes # (Manual) (1.0-4.8) k/uL Monocytes # (Manual) (0-1.0) k/uL Eosinophils # (Manual) (0-0.7) k/uL Metamyelocytes # (Man) (0) k/uL Myelocytes # (Manual) (0) k/uL Nucleated RBCs (0-0) /100 WBC Manual Slide Review Hypochromasia Poikilocytosis (manual Anisocytosis Microcytosis PT (9.0-12.0) sec INR (<1.2) APTT (22.0-30.0) sec Sodium (137-145) mmol/L Potassium (3.5-5.1) mmol/L Chloride (98-107) mmol/L Carbon Dioxide (22-30) mmol/L Anion Gap mmol/L BUN (9-20) mg/dL Creatinine (0.66-1.25) mg/dL Est GFR (CKD-EPI)AfAm (>60 ml/min/1.73 sqM) Est GFR (CKD-EPI)NonAf (>60 ml/min/1.73 sqM) Glucose (74-99) mg/dL Calcium (8.4-10.2) mg/dL Total Bilirubin (0.2-1.3) mg/dL AST (17-59) U/L ALT (4-49) U/L Alkaline Phosphatase (38-126) U/L Troponin I <0.012 (0.000-0.034) ng/mL Total Protein (6.3-8.2) g/dL Albumin (3.5-5.0) g/dL Urine Color Yellow Urine Appearance Cloudy (Clear) Urine pH 6.0 (5.0-8.0) Ur Specific [place] 1.039 H (1.001-1.035) Urine Protein 2+ H (Negative) Urine Glucose (UA) Negative (Negative) Urine Ketones Trace H (Negative) Urine Blood Negative (Negative) Urine Nitrite Negative (Negative) Urine Bilirubin 1+ H (Negative) Urine Urobilinogen 4.0 (<2.0) mg/dL Ur Leukocyte Esterase Negative (Negative) Urine RBC 4 (0-5) /hpf Urine WBC 8 H (0-5) /hpf Ur Squamous Epith Cells 11 H (0-4) /hpf Calcium Oxalate Crystal Occasional H (None) /hpf Urine Bacteria Occasional H (None) /hpf Urine Mucus Many H (None) /hpf - Radiology Data Radiology results: report reviewed, image reviewed Disposition Clinical Impression: Syncope, Orthostatic hypotension Disposition: ADMITTED IP TO THIS [facility] Condition: Serious Referrals: None,Stated [Primary Care Provider] - 1-2 days Decision to Admit Reason: Admit from EC Decision Date: 10/28/19 Decision Time: 02:48
[2019-10-28 01:44] LABS: ALT 21 U/L (4-49); AST 33 U/L (17-59); African American GFR (CKD) >90 (>60 ml/min/1.73 sqM); Albumin 2.8 g/dL (3.5-5.0); Alkaline Phosphatase 346 U/L (38-126); Anion Gap 10 mmol/L; Blood Urea Nitrogen 13 mg/dL (9-20); Calcium 9.2 mg/dL (8.4-10.2); Carbon Dioxide 18 mmol/L (22-30); Chloride 104 mmol/L (98-107); Glucose 148 mg/dL (74-99); Non-African American GFR(CKD) >90 (>60 ml/min/1.73 sqM); Potassium 3.2 mmol/L (3.5-5.1); Sodium 132 mmol/L (137-145); Total Bilirubin 0.3 mg/dL (0.2-1.3); Total Protein 5.4 g/dL (6.3-8.2)
[2019-10-28 01:45] LABS: INR 1.2 (<1.2); Partial Thromboplastin Time 26.4 sec (22.0-30.0); Prothrombin Time 12.3 sec (9.0-12.0)
[2019-10-28] MEDS ORDERED: POTASSIUM CHLORIDE ER 20 MEQ TAB.ER PO STA (01:46)
--- NOTE | 2019-10-28 02:01 | CT ---
EXAMINATION TYPE: CT brain cspine wo con DATE OF EXAM: 10/28/2019 COMPARISON: None HISTORY: Fall Headache. Neck pain. CT DLP: 1378.80 mGycm Automated exposure control for dose reduction was used. There is cerebral cortical atrophy. There is no mass effect nor midline shift. There is no sign of in tracranial hemorrhage. The calvarium is intact. There is no evidence of cerebral edema. Cervical vertebra have fairly normal spacing and alignment. Posterior elements are intact. Facet join ts appear normal. The skull base is intact. There is normal aeration of the temporal bones. There is debris in the external auditory canals bilaterally. IMPRESSION: Negative CT scan of the brain. Mild cerebral atrophy. Negative CT scan cervical spine. No evidence of traumatic injury.
--- NOTE | 2019-10-28 02:07 | XR ---
EXAMINATION TYPE: XR chest 2V DATE OF EXAM: 10/28/2019 COMPARISON: 12/11/2018 HISTORY: Syncope TECHNIQUE: FINDINGS: Heart and mediastinum are normal. Lungs are clear. Costophrenic angles are clear. There is left-sided central venous catheter with the tip in the superior vena cava. There is no pleural effusi on. There are no hilar masses. Bony thorax appears intact. IMPRESSION: No active cardiopulmonary disease. Normal heart. No change.
[2019-10-28 02:09] LABS: Band Neutrophils % 9 %; Eosinophils # (M) 0.11 k/uL (0-0.7); Lymphocytes # (M) 0.56 k/uL (1.0-4.8); Metamyelocytes # (M) 0.06 k/uL (0); Metamyelocytes % 1 %; Monocytes # (M) 0.39 k/uL (0-1.0); Myelocytes # (M) 0.06 k/uL (0); Myelocytes % 1 %; Neutrophils % (M) 72 %; Nucleated Red Blood Cells 0 /100 WBC (0-0); Total Cells Counted 200
[2019-10-28 02:10] LABS: Poikilocytosis (M) Present
[2019-10-28 02:16] LABS: Appearance,Urine Cloudy (Clear); Bacteria,Urine Occasional /hpf; Bilirubin,Urine 1+ (Negative); Blood,Urine Negative (Negative); Calcium Oxalate Crystals,Urine Occasional /hpf; Color,Urine Yellow; Glucose,Urine (UA) Negative (Negative); Ketones,Urine Trace (Negative); Leukocyte Esterase,Urine Negative (Negative); Mucus,Urine Many /hpf; Nitrite,Urine Negative (Negative); Protein,Urine 2+ (Negative); RBC,Urine 4 /hpf (0-5); Specific Gravity,Urine 1.039 (1.001-1.035); Squamous Epithelial Cell,Urine 11 /hpf (0-4); WBC,Urine 8 /hpf (0-5)
[2019-10-28] MEDS ORDERED: SODIUM CHLORIDE 0.9% 1,000 ML IV ONE (02:33)
[2019-10-28] MEDS ORDERED: NALOXONE 0.4 MG/ML 1 ML VIAL IV PRN (02:45)
[2019-10-28] MEDS: SODIUM CHLORIDE 0.9% 1,000 ML IV SCH ×3 (03:00→20:46)
[2019-10-28 04:09] LABS: Glucose,Whole Blood 132 mg/dL (75-99)
[2019-10-28 06:32] LABS: Glucose,Whole Blood 122 mg/dL (75-99)
[2019-10-28] MEDS ORDERED: SODIUM CHLORIDE 0.9% 500 ML 250 ML IV ONE (07:57)
--- NOTE | 2019-10-28 09:04 | HP ---
HISTORY AND PHYSICAL A 44-year-old white male who came in with a syncopal episode. MMODL / IJN: [id number] /
--- NOTE | 2019-10-28 11:24 | HP ---
HISTORY AND PHYSICAL 44-year-old white male came in from syncope coming from the bathroom. History of seizures. He has metastatic colon cancer. Last chemo treatment was Sunday. He was not able to eat or drink over the weekend. Possibly he had severe dehydration, was given multiple fluid boluses, still remains hypotensive. Discussed case with Dr. Whalen, his oncologist who recommends maybe we can try some Midodrine on him to keep his blood pressure up as he has trouble with dizziness with chemo all the time. Home medicines: Lipitor 20 daily, metformin 850 t.i.d., atenolol 25 daily, Zestril 10 mg daily, multivitamin daily, Loratadine 10 daily, Zofran p.r.n., Compazine p.r.n., Risperdal 1 mg b.i.d., [place] 10/325 q.4 p.r.n., Keppra 500 b.i.d. ALLERGIES: TEGRETOL, LIBRIUM, SHELLFISH. 14-point review of systems negative except for mentioned in HPI. PAST HISTORY: Cancer, diabetes, eye disorder, dyslipidemia, hypertension, seizure disorder, SVT, colon cancer for the past year or two, getting chemo. SURGERIES: Appendectomy, bowel surgery, hernia repair, orthopedic surgery, tonsillectomy, bipolar, depression, schizophrenia. PHYSICAL EXAMINATION: Temp 98.5, blood pressure 78 to 97 over 54 to 71, pulse 100-107. EXTREMITIES: No cyanosis, clubbing, edema. GI soft, nontender. CARDIOVASCULAR: S1, S2. LUNGS clear. NECK is supple. No mass. ENT normal. BACK nontender. NEUROLOGIC: Alert and orient x3. PSYCH: Fair mood and affect. ASSESSMENT: 1. Dehydration status post chemo. 2. Metastatic colon cancer. 3. Possible orthostatic hypotension. Possible trial of Midodrine per Oncology after my discussion with him. Check for orthostatic changes. Possible discharge home today. MMODL / IJN: [id number] /
[2019-10-28 11:36] LABS: Glucose,Whole Blood 114 mg/dL (75-99)
[2019-10-28] MEDS: metFORMIN 850 MG TAB PO SCH ×2 (11:53→17:20)
[2019-10-28] MEDS: MIDODRINE 5 MG TAB PO SCH ×3 (11:53→17:47)
[2019-10-28] MEDS ORDERED: CAPECITABINE PO SCH (12:00)
--- NOTE | 2019-10-28 12:11 | P.CONS ---
History of Present Illness - Reason for Consult Consult date: 10/28/19 Metastatic Colon Cancer Requesting physician: David Thompsonchristopher - Chief Complaint Fall at home - History of Present Illness Mr. Mckinney is a 44 year old pleasant male patient well known to our practice for treatment of his metastatic adenocarcinoma of the colon, primary oncologist Dr. Whalen. He initially was seen in consult 06/2018, presented with decreased appetite, weight loss, and progressive nausea and vomiting for 1 week. He was febrile, imaging showed evidence of ruptured appendix with surrounding intra-abdominal abscess. CT CAP 07/04/18 showed a 13 x 6 cm inflammatory mass in the right lower to mid abdomen, some enlarged periaortic lymph nodes specific subcentimeter pulmonary nodules. He had surgery 07/[address] Stovall. Operative findings noted in the sacrum with surrounding abscess extending onto the posterior wall of the ascending colon. Due to dense inflammation mobilization of the ascending colon somewhat difficult. The patient underwent drainage of the abscess and right hemicolectomy. Pathology revealed invasive well-differentiated, grade 1 adenocarcinoma 3.5 cm, 2/8 mesenteric lymph nodes were positive for metastasis. There were at least 7 tumor deposits in the serosa. Seen for his first office visit 07/26/18. He had rust syndrome testing, which was negative. PET scan revealed uptake in 2-3 left SC nodes, the largest 1.2 cm, in the 2-3 SUV range. Supraclavicular node biopsy 08/21/18 was positive for adenocarcinoma, colon primary, MSI stable, KRAS was mutated. Started FOLFOX + Avastin ( Mvasi) on 09/25/18, completed 12 cycles 03/25/19. He was started on maintenance Xeloda + Avastin on 05/03/19. He was referred to Rad Onc to consider RT to the left SC area. Repeat imaging was recommended. He had an ER visit on 05/07/19 for abdominal distension and pain. He had a Ct scan and was told that he may have progression. His last office visit was Apr 29, 2019, he moved to [facility]. Per patient, He has been back on treatment, unclear if FOLFIRINOX or FOLFOX. Per patient the treatment was stopped secondary to persistent cytopenias and worsening progressive neuropathy. He moved back recently and underwent restaging exams in early September which unfortunetely did reveal progression of disease. He was evaluated by Dr. Whalen in the office and decision was made to start back on treatment. Earlier this month he was admitted for pain and nausea, decreased PO intake. He states he has been experiencing increased abdominal bloating, changes in bowels (color and consistancy is different), and worsening abdominal and left sided hip/leg discomfort. He states he has started having persistent vomiting, and nausea that has not improved in the past week. He notes swallowing is more difficult and that he can feel the nodule on left neck more, and its painful. He apparently had this lymph node in neck radiated when in [place] and said it shrank but is increasing again and causing symptoms making it more difficult to eat. He complains of vision changes, increased difficulty with focus and headaches. His neuropathy is still bothersome, recently started on gabapentin and has helped alittle. He does still take norco daily for his cancer related pain. Recent admission patient after presenting to Emergency Department for uncontrolled cancer pain. He has now been referred to Dr. Prado to continue pain management He now presents to the emergency department for evaluation after fall at home. He fell walking to bathroom and his roommate told him he hit his head, therefore he was brought for further evaluation. He is currently status post cycle 6 of FOLFIRI and Mvasi. He is not on capcitabine at this time. He does not remember falling, therefore he thinks he "blacked out". Review of Systems A 14 ppoint review of systems assessed and completed and all negative except HPI Past Medical History Past Medical History: Cancer, Diabetes Mellitus, Eye Disorder, Hyperlipidemia, Hypertension, Seizure Disorder, Supraventricular Tachycardia (SVT), Syncope Additional Past Medical History / Comment(s): Pt recently admitted to [facility] on 09/17/19 with intractable nausea/vomitting and pain associated with cancer. Other hx: 06/2018 colon cancer with lymph node involvement with chemotherapy last 3-4 weeks ago and had radiation tx to lymph node, NIDDM type II, neuropathy bilateral hands and feet, falls, chronic generalized pain, R eye decreased vision-pt things d/t cataract, sepsis d/t ruptured appendix, iron anemia, History of Any Multi-Drug Resistant Organisms: None Reported Past Surgical History: Appendectomy, Bowel Resection, Hernia Repair, Orthopedic Surgery, Tonsillectomy Additional Past Surgical History / Comment(s): 08/11/18 cervical lymph node bx, exploratory laparotomy/appy and R colectomy, umbilical hernia repair, UVPPP, R knee arthroscopy, port a caths-currently L chest. Past Anesthesia/Blood Transfusion Reactions: Motion Sickness Past Psychological History: Bipolar, Depression, Schizoaffective Disorder, Schizophrenia Additional Psychological History / Comment(s): Pt states he has been under stress d/t changing living arrangements. Currently is living with friends. Pt states d/t his multiple moves, he has lost his glucometer and walker. He needs a script for a new walker. Pt does not drive. He uses the bus or friends [place] get [place] [employer] He has established with [facility]. Pt states he has hx of 20 suicide attempts but does not feel suicidal at this time or recently. Smoking Status: Former smoker Past Alcohol Use History: None Reported Additional Past Alcohol Use History / Comment(s): Pt started smoking in 1987 and quit in 1992. Past Drug Use History: Marijuana Additional Drug Use History / Comment(s): Occasional Marijuana use. - Past Family History Father Family Medical History: Liver Disease Additional Family Medical History / Comment(s): Father had ETOH abuse. He from cirrhosis. Mother Family Medical History: Congestive Heart Failure (CHF), Pulmonary Embolus Additional Family Medical History / Comment(s): Mother from CHF Medications and Allergies Home Medications Medication Instructions Recorded Confirmed Type Atorvastatin Calcium [Lipitor] 20 mg PO HS 09/14/16 10/28/19 History metFORMIN HCL [Glucophage] 850 mg PO AC-TID 09/14/16 10/28/19 History Atenolol 25 mg PO DAILY 07/04/18 10/28/19 History Lisinopril [Zestril] 10 mg PO HS 07/04/18 10/28/19 History Multivitamins, Thera [Multivitamin 1 tab PO DAILY 01/09/19 10/28/19 History (formulary)] Gabapentin [Neurontin] 300 mg PO HS #30 cap 10/03/19 10/28/19 Rx HYDROcodone/APAP 10-325MG [[place] 1 tab PO Q4H PRN 10/17/19 10/28/19 History 10-325] DULoxetine HCL [Cymbalta] 120 mg PO DAILY #60 cap 10/18/19 10/28/19 Rx levETIRAcetam [Keppra] 500 mg PO BID 10/22/19 10/28/19 History Capecitabine [Xeloda] 2,500 mg PO DIRECTED 10/28/19 10/28/19 History Ondansetron [Zofran] 8 mg PO Q6H PRN 10/28/19 10/28/19 History Allergies Allergy/AdvReac Type Severity Reaction Status Date / Time carbamazepine [From Tegretol] Allergy Severe Anaphylaxis Verified 10/28/19 08:20 lithium [[place]] Allergy Severe Anaphylaxis Verified 10/28/19 08:20 shellfish derived Allergy Severe Anaphylaxis Verified 10/28/19 08:20 aspartame Allergy SWELLING Verified 10/28/19 08:20 OF THROAT citalopram hydrobromide AdvReac Intermediate Nausea & Verified 10/28/19 08:20 [From Celexa] Vomiting Physical Exam Vitals: Vital Signs Temp Pulse Pulse Resp BP BP BP 10/28/19 10:46 90 111/74 10/28/19 07:45 98.1 F 102 H 16 82/53 10/28/19 07:38 16 10/28/19 04:00 107 H 15 10/28/19 03:35 98.1 F 107 H 15 106/54 10/28/19 03:30 15 10/28/19 02:29 76/56 10/28/19 01:46 100 22 78/54 10/28/19 00:55 98.5 F 107 H 16 97/71 BP BP Pulse Ox 10/28/19 10:46 10/28/19 07:45 78/50 99 10/28/19 07:38 10/28/19 04:00 10/28/19 03:35 100 10/28/19 03:30 10/28/19 02:29 92/60 98/61 10/28/19 01:46 97 10/28/19 00:55 97 Intake and Output 10/27/19 10/28/19 10/28/19 22:59 06:59 14:59 Other: # Voids 1 # Bowel Movements 1 Weight 102.058 kg Gen: No eye contact, uncomfortable although no distress, alert and appropriate Neck: Left neck palpable nodule 3-4cm ahrd nodular and shotty LN palpable bilaterally Head: NCAT O/P: Dry mucus membranes no thrush Lungs: CTA bilateral no wheezes, no increased effort Abdomen: Mild distention, firm, BS present, tender to palpation with guarding Heart: Tachy, reg Ext: Left Leg 5/5 Right 5/5. Left Arm and Right Arm 5/5 - Improved No rashes No lesions to skin Pale Pscyh: Anxious and uncomfortable. Results CBC & Chem 7: 10/28/19 01:26 10/28/19 01:26 Labs: Abnormal Lab Results - Last 24 Hours (Table) 10/28/19 10/28/19 10/28/19 Range/Units 01:26 01:26 01:26 Hgb 11.1 L (13.0-17.5) gm/dL Hct 33.2 L (39.0-53.0) % MCV 77.0 L (80.0-100.0) fL RDW 16.1 H (11.5-15.5) % Plt Count 581 H (150-450) k/uL Lymphocytes # (Manual) 0.56 L (1.0-4.8) k/uL Metamyelocytes # (Man) 0.06 H (0) k/uL Myelocytes # (Manual) 0.06 H (0) k/uL PT 12.3 H (9.0-12.0) sec INR 1.2 H (<1.2) Sodium 132 L (137-145) mmol/L Potassium 3.2 L (3.5-5.1) mmol/L Carbon Dioxide 18 L (22-30) mmol/L Glucose 148 H (74-99) mg/dL POC Glucose (mg/dL) (75-99) mg/dL Alkaline Phosphatase 346 H (38-126) U/L Total Protein 5.4 L (6.3-8.2) g/dL Albumin 2.8 L (3.5-5.0) g/dL Ur Specific [place] (1.001-1.035) Urine Protein (Negative) Urine Ketones (Negative) Urine Bilirubin (Negative) Urine WBC (0-5) /hpf Ur Squamous Epith Cells (0-4) /hpf Calcium Oxalate Crystal (None) /hpf Urine Bacteria (None) /hpf Urine Mucus (None) /hpf 10/28/19 10/28/19 10/28/19 Range/Units 02:08 04:08 06:31 Hgb (13.0-17.5) gm/dL Hct (39.0-53.0) % MCV (80.0-100.0) fL RDW (11.5-15.5) % Plt Count (150-450) k/uL Lymphocytes # (Manual) (1.0-4.8) k/uL Metamyelocytes # (Man) (0) k/uL Myelocytes # (Manual) (0) k/uL PT (9.0-12.0) sec INR (<1.2) Sodium (137-145) mmol/L Potassium (3.5-5.1) mmol/L Carbon Dioxide (22-30) mmol/L Glucose (74-99) mg/dL POC Glucose (mg/dL) 132 H 122 H (75-99) mg/dL Alkaline Phosphatase (38-126) U/L Total Protein (6.3-8.2) g/dL Albumin (3.5-5.0) g/dL Ur Specific [place] 1.039 H (1.001-1.035) Urine Protein 2+ H (Negative) Urine Ketones Trace H (Negative) Urine Bilirubin 1+ H (Negative) Urine WBC 8 H (0-5) /hpf Ur Squamous Epith Cells 11 H (0-4) /hpf Calcium Oxalate Crystal Occasional H (None) /hpf Urine Bacteria Occasional H (None) /hpf Urine Mucus Many H (None) /hpf CT Scan - head: report reviewed Assessment and Plan (1) Metastatic colorectal cancer Current Visit: Yes Status: Acute Code(s): C19 - MALIGNANT NEOPLASM OF RECTOSIGMOID JUNCTION SNOMED Code(s): 76524639 (2) Orthostatic hypotension Current Visit: Yes Status: Acute Code(s): I95.1 - ORTHOSTATIC HYPOTENSION SNOMED Code(s): 22578391 (3) Syncope Current Visit: Yes Status: Acute Code(s): R55 - SYNCOPE AND COLLAPSE SNOMED Code(s): 583826061 (4) Hypokalemia Current Visit: Yes Status: Acute Code(s): E87.6 - HYPOKALEMIA SNOMED Code(s): 66315029 Plan: patient was kept for monitoring in observation. Dr. Whalen spoke to Dr. Bain. His potassium is being rechecked after supplementation and he is receiving IV hydration. He will resume chemotherapy and regular follow-ups after discharge. Physician Attest: I have completed the full history and physical and developed the above impression and plan, agree with dictation, dictated as a scribe.
--- NOTE | 2019-10-28 12:47 | P.CRDCN ---
History of Present Illness History of present illness: HISTORY OF PRESENTING ILLNESS This is a pleasant 44-year-old male past medical history significant for colon cancer with metastases to the liver currently undergoing chemotherapy, hypertension, dyslipidemia and diabetes mellitus. 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 We have been asked to see in consultation for orthostatic hypotension. He states he finished a round of chemotherapy on Sunday. Since that time he has had a poor appetite and poor oral intake. Last night he got up from sleep to use the bathroom and was walking when he became acutely lightheaded. He braced himself on the door however he didn't fact passed out hitting his head on the door frame and the door itself. He does not recall feeling chest pain, shortness of breath or palpitations prior to falling or thereafter. He is seen and examined resting comfortably lying flat in bed in no acute distress. He states he frequently has dizzy spells when he changes positions. Orthostatic vital signs reveal a change from 92/60 supine to 76/56 standing. He has been receiving IV fluids. DIAGNOSTICS EKG reveals sinus tachycardia heart rate of 102. Telemetry tracings unremarkable for an acute arrhythmia. Chest xray negative for an acute cardiopulmonary process. CT of the brain negative for acute intracranial process. Laboratory reviewed, WBC 5.6, hemoglobin 11.1, platelets 581, INR 1.2, sodium 132, potassium 3.2, creatinine 0.79, troponin negative 1, alkaline phosphatase 346. Current cardiac medications include lisinopril 10 mg daily, atorvastatin 20 mg daily and atenolol 25 mg daily. REVIEW OF SYSTEMS At the time of my exam: CONSTITUTIONAL: Denies fever or chills. CARDIOVASCULAR: Denies chest pain, shortness of breath, orthopnea, PND or palpitations. RESPIRATORY: Denies cough. GASTROINTESTINAL: Denies abdominal pain, diarrhea, constipation, nausea or vomiting. MUSCULOSKELETAL: Denies myalgias. NEUROLOGIC: Complains of dizziness with position changes. Denies numbness, tingling or weakness. ENDOCRINE: Denies fatigue, weight change, polydipsia or polyurina. GENITOURINARY: Denies burning, hematuria or urgency with micturation. HEMATOLOGIC: Denies history of anemia or bleeding. PHYSICAL EXAMINATION Blood pressure 88/59 heart rate 112 afebrile and maintaining oxygen saturation on and room air. CONSTITUTIONAL: No apparent distress. HEENT: Head is normocephalic. Pupils are equal, round. Sclerae anicteric. Mucous membranes of the mouth are moist. No JVD. No carotid bruit. CHEST EXAMINATION: Lungs are clear to auscultation. No chest wall tenderness is noted on palpation or with deep breathing. HEART EXAMINATION: Regular rate and rhythm. S1, S2 heard. No murmurs, gallops or rub. ABDOMEN: Soft, nontender. Positive bowel sounds. EXTREMITIES: 2+ peripheral pulses, no lower extremity edema and no calf tenderness. NEUROLOGIC EXAMINATION: Patient is awake, alert and oriented x3. ASSESSMENT Syncopal episode secondary to orthostatic changes Orthostatic hypotension Metastatic colorectal cancer Hypokalemia PLAN Hold lisinopril and continue with IV hydration. Obtain 2-D echocardiogram and Doppler study to assess cardiac structure and function. Thank you kindly for this consultation. Nurse Practitioner note has been reviewed, I agree with a documented findings and plan of care. Patient was seen and examined. Past Medical History Past Medical History: Cancer, Diabetes Mellitus, Eye Disorder, Hyperlipidemia, Hypertension, Seizure Disorder, Supraventricular Tachycardia (SVT), Syncope Additional Past Medical History / Comment(s): Pt recently admitted to [facility] on 09/17/19 with intractable nausea/vomitting and pain associated with cancer. Other hx: 06/2018 colon cancer with lymph node involvement with chemotherapy last 3-4 weeks ago and had radiation tx to lymph node, NIDDM type II, neuropathy bilateral hands and feet, falls, chronic generalized pain, R eye decreased vision-pt things d/t cataract, sepsis d/t ruptured appendix, iron anemia, History of Any Multi-Drug Resistant Organisms: None Reported Past Surgical History: Appendectomy, Bowel Resection, Hernia Repair, Orthopedic Surgery, Tonsillectomy Additional Past Surgical History / Comment(s): 08/11/18 cervical lymph node bx, exploratory laparotomy/appy and R colectomy, umbilical hernia repair, UVPPP, R knee arthroscopy, port a caths-currently L chest. Past Anesthesia/Blood Transfusion Reactions: Motion Sickness Past Psychological History: Bipolar, Depression, Schizoaffective Disorder, Schizophrenia Additional Psychological History / Comment(s): Pt states he has been under stress d/t changing living arrangements. Currently is living with friends. Pt states d/t his multiple moves, he has lost his glucometer and walker. He needs a script for a new walker. Pt does not drive. He uses the bus or friends to get to appts. He has established with [facility]. Pt states he has hx of 20 suicide attempts but does not feel suicidal at this time or recently. Smoking Status: Former smoker Past Alcohol Use History: None Reported Additional Past Alcohol Use History / Comment(s): Pt started smoking in 1987 and quit in 1992. Past Drug Use History: Marijuana Additional Drug Use History / Comment(s): Occasional Marijuana use. - Past Family History Father Family Medical History: Liver Disease Additional Family Medical History / Comment(s): Father had ETOH abuse. He from cirrhosis. Mother Family Medical History: Congestive Heart Failure (CHF), Pulmonary Embolus Additional Family Medical History / Comment(s): Mother from CHF Medications and Allergies Home Medications Medication Instructions Recorded Confirmed Type Atorvastatin Calcium [Lipitor] 20 mg PO HS 09/14/16 10/28/19 History metFORMIN HCL [Glucophage] 850 mg PO AC-TID 09/14/16 10/28/19 History Atenolol 25 mg PO DAILY 07/04/18 10/28/19 History Lisinopril [Zestril] 10 mg PO HS 07/04/18 10/28/19 History Multivitamins, Thera [Multivitamin 1 tab PO DAILY 01/09/19 10/28/19 History (formulary)] Gabapentin [Neurontin] 300 mg PO HS #30 cap 10/03/19 10/28/19 Rx HYDROcodone/APAP 10-325MG [[place] 1 tab PO Q4H PRN 10/17/19 10/28/19 History 10-325] DULoxetine HCL [Cymbalta] 120 mg PO DAILY #60 cap 10/18/19 10/28/19 Rx levETIRAcetam [Keppra] 500 mg PO BID 10/22/19 10/28/19 History Capecitabine [Xeloda] 2,500 mg PO DIRECTED 10/28/19 10/28/19 History Ondansetron [Zofran] 8 mg PO Q6H PRN 10/28/19 10/28/19 History Allergies Allergy/AdvReac Type Severity Reaction Status Date / Time carbamazepine [From Tegretol] Allergy Severe Anaphylaxis Verified 10/28/19 08:20 lithium [[place]] Allergy Severe Anaphylaxis Verified 10/28/19 08:20 shellfish derived Allergy Severe Anaphylaxis Verified 10/28/19 08:20 aspartame Allergy SWELLING Verified 10/28/19 08:20 OF THROAT citalopram hydrobromide AdvReac Intermediate Nausea & Verified 10/28/19 08:20 [From Celexa] Vomiting Physical Exam Vitals: Vital Signs Temp Pulse Pulse Resp BP BP BP 10/28/19 07:45 98.1 F 102 H 16 82/53 10/28/19 07:38 16 10/28/19 04:00 107 H 15 10/28/19 03:35 98.1 F 107 H 15 106/54 10/28/19 03:30 15 10/28/19 02:29 76/56 10/28/19 01:46 100 22 78/54 10/28/19 00:55 98.5 F 107 H 16 97/71 BP BP Pulse Ox 10/28/19 07:45 78/50 99 10/28/19 07:38 10/28/19 04:00 10/28/19 03:35 100 10/28/19 03:30 10/28/19 02:29 92/60 98/61 10/28/19 01:46 97 10/28/19 00:55 97 Intake and Output 10/27/19 10/28/19 10/28/19 22:59 06:59 14:59 Other: # Voids 1 # Bowel Movements 1 Weight 102.058 kg Results 10/28/19 01:26 10/28/19 01:26 Cardiac Enzymes 10/28/19 10/28/19 Range/Units 01:26 01:26 AST 33 (17-59) U/L Troponin I <0.012 (0.000-0.034) ng/mL Coagulation 10/28/19 Range/Units 01:26 PT 12.3 H (9.0-12.0) sec APTT 26.4 (22.0-30.0) sec CBC 10/28/19 Range/Units 01:26 WBC 5.6 (3.8-10.6) k/uL RBC 4.31 (4.30-5.90) m/uL Hgb 11.1 L (13.0-17.5) gm/dL Hct 33.2 L (39.0-53.0) % Plt Count 581 H (150-450) k/uL Comprehensive Metabolic Panel 10/28/19 Range/Units 01:26 Sodium 132 L (137-145) mmol/L Potassium 3.2 L (3.5-5.1) mmol/L Chloride 104 (98-107) mmol/L Carbon Dioxide 18 L (22-30) mmol/L BUN 13 (9-20) mg/dL Creatinine 0.79 (0.66-1.25) mg/dL Glucose 148 H (74-99) mg/dL Calcium 9.2 (8.4-10.2) mg/dL AST 33 (17-59) U/L ALT 21 (4-49) U/L Alkaline Phosphatase 346 H (38-126) U/L Total Protein 5.4 L (6.3-8.2) g/dL Albumin 2.8 L (3.5-5.0) g/dL Current Medications Generic Name Dose Route Start Last Admin Trade Name Freq PRN Reason Stop Dose Admin Sodium Chloride 1,000 mls @ 125 mls/hr 10/28/19 02:45 10/28/19 03:00 Saline 0.9% IV 100 mls/hr .Q8H BRANDIE Administration Naloxone HCl 0.2 mg 10/28/19 02:45 Narcan IV Q2M PRN Opioid Reversal Ondansetron HCl 4 mg 10/28/19 02:45 Zofran IVP Q8HR PRN Nausea And Vomiting Intake and Output 10/27/19 10/28/19 10/28/19 22:59 06:59 14:59 Other: # Voids 1 # Bowel Movements 1 Weight 102.058 kg 10/28/19 01:26 10/28/19 01:26
[2019-10-28 13:32] LABS: African American GFR (CKD) >90 (>60 ml/min/1.73 sqM); Anion Gap 6 mmol/L; Blood Urea Nitrogen 11 mg/dL (9-20); Calcium 8.9 mg/dL (8.4-10.2); Carbon Dioxide 18 mmol/L (22-30); Chloride 112 mmol/L (98-107); Glucose 123 mg/dL (74-99); Magnesium 1.8 mg/dL (1.6-2.3); Non-African American GFR(CKD) >90 (>60 ml/min/1.73 sqM); Potassium 4.7 mmol/L (3.5-5.1); Sodium 136 mmol/L (137-145)
[2019-10-28] MEDS: HYDROcodone/APAP 5-325MG 1 EACH TAB PO PRN ×2 (13:59→19:31)
[2019-10-28] MEDS: ONDANSETRON 4 MG/2 ML VIAL IVP PRN (14:05)
[2019-10-28 17:01] LABS: Glucose,Whole Blood 123 mg/dL (75-99)
[2019-10-28] MEDS: levETIRAcetam 500 MG TAB PO SCH (20:01)
[2019-10-28] MEDS: ATORVASTATIN 20 MG TAB PO SCH (20:01)
[2019-10-28] MEDS: GABAPENTIN 300 MG CAP PO SCH (20:01)
[2019-10-28 20:41] LABS: Glucose,Whole Blood 128 mg/dL (75-99)
[2019-10-29] MEDS: HYDROcodone/APAP 5-325MG 1 EACH TAB PO PRN ×4 (01:06→20:54)
[2019-10-29 06:34] LABS: Glucose,Whole Blood 93 mg/dL (75-99)
[2019-10-29] MEDS: MULTIVITAMINS, THERA 1 EACH TAB PO SCH (07:56)
[2019-10-29] MEDS: levETIRAcetam 500 MG TAB PO SCH ×2 (07:56→20:54)
[2019-10-29] MEDS: DULoxetine HCL 60 MG CAPSULE.DR PO SCH (07:56)
[2019-10-29] MEDS: metFORMIN 850 MG TAB PO SCH ×3 (07:57→16:48)
[2019-10-29] MEDS: MIDODRINE 5 MG TAB PO SCH ×3 (07:57→16:48)
[2019-10-29] MEDS: SODIUM CHLORIDE 0.9% 1,000 ML IV SCH ×3 (07:58→20:53)
--- NOTE | 2019-10-29 10:00 | ECHOF ---
Referral Reason:syncope MEASUREMENTS -------- HEIGHT: 180.3 cm WEIGHT: 102.1 kg BP: RVIDd: 2.6 cm (< 3.3) IVSd: 1.4 cm (0.6 - 1.1) LVIDd: 3.0 cm (3.9 - 5.3) LVPWd: 1.5 cm (0.6 - 1.1) IVSs: 1.8 cm LVIDs: 2.1 cm LVPWs: 1.7 cm Ao Diam: 3.6 cm (2.0 - 3.7) AV Cusp: 2.3 cm (1.5 - 2.6) LA Diam: 3.6 cm (2.7 - 3.8) MV EXCURSION: 17.007 mm (> 18.000) MV EF SLOPE: 79 mm/s (70 - 150) EPSS: 0.2 cm MV E Vance: 0.51 m/s MV DecT: 193 ms MV A Vance: 0.70 m/s MV E/A Ratio: 0.73 RAP: 5.00 mmHg RVSP: 20.86 mmHg FINDINGS -------- Resting tachycardia (HR>100bpm). This was a technically difficult study with suboptimal views. The left ventricular size is normal. There is moderate concentric left ventricular hypertrophy. O verall left ventricular systolic function is normal with, an EF between 55 - 60 %. The right ventricle is normal in size. The left atrial size is normal. The right atrial size is normal. Lumason used The aortic valve is trileaflet and appears structurally normal. The mitral valve is normal. There is trace mitral regurgitation. The tricuspid valve appears structurally normal. Trace tricuspid regurgitation present. Right melania tricular systolic pressure is normal at < 35 mmHg. There is no pulmonic regurgitation present. The aortic root size is normal. IVC Not well visulized. There is no pericardial effusion. CONCLUSIONS -------- 1. There is moderate concentric left ventricular hypertrophy. 2. Overall left ventricular systolic function is normal with, an EF between 55 - 60 %. 3. There is trace mitral regurgitation. 4. Trace tricuspid regurgitation present. CIGAR WRAPPER: Lucy John [facility]
[2019-10-29 11:40] LABS: Glucose,Whole Blood 146 mg/dL (75-99)
--- NOTE | 2019-10-29 12:28 | P.PN ---
Subjective Progress Note Date: 10/29/19 This 44-year-old gentleman who is status post chemotherapy was admitted to the hospital with dizziness and syncopal episodes. Patient was found to have significant postural hypotension. Patient has received IV fluids with improvement in his blood pressure. Still has postural changes today. Patient is feeling better and eating better. No arrhythmias noted. Objective - Vital Signs Vital signs: Vital Signs Temp 97.9 F 10/29/19 07:49 Pulse 96 10/29/19 07:49 Resp 16 10/29/19 12:00 BP 103/59 10/29/19 12:00 Pulse Ox 100 10/29/19 07:49 Intake & Output 10/28/19 10/29/19 10/29/19 18:59 06:59 18:59 Output Total 200 Balance -200 Output: Emesis 200 Other: Voiding Method Toilet # Voids 2 1 # Bowel Movements 2 - Exam GENERAL EXAM: Patient is alert and oriented and doesn't appear to be in any acute distress HEENT: Normocephalic. Normal reaction of pupils, equal size, normal range of extraocular motion. No erythema or exudates in the throat. NECK: No masses, no nuchal rigidity. CHEST: No chest wall deformity. LUNGS: Equal air entry with no crackles or wheeze. HEART: S1 and S2 normal with no audible mumurs or gallops. Regular rhythm, femorals equal on both sides.. ABDOMEN: No hepatosplenomegaly, normal bowel sounds, no guarding or rigidity. SKIN: No rashes CENTRAL NERVOUS SYSTEM: No focal deficits. EXTREMITIES: No cyanosis, clubbing or edema. - Labs CBC & Chem 7: 10/28/19 01:26 10/28/19 12:30 Labs: Abnormal Lab Results - Last 24 Hours (Table) 10/28/19 10/28/19 10/28/19 Range/Units 12:30 17:00 20:39 Sodium 136 L (137-145) mmol/L Chloride 112 H (98-107) mmol/L Carbon Dioxide 18 L (22-30) mmol/L Glucose 123 H (74-99) mg/dL POC Glucose (mg/dL) 123 H 128 H (75-99) mg/dL 10/29/19 Range/Units 11:39 Sodium (137-145) mmol/L Chloride (98-107) mmol/L Carbon Dioxide (22-30) mmol/L Glucose (74-99) mg/dL POC Glucose (mg/dL) 146 H (75-99) mg/dL Assessment and Plan (1) Hypokalemia Current Visit: Yes Status: Acute Code(s): E87.6 - HYPOKALEMIA SNOMED Code (s): 59738375 (2) Metastatic colorectal cancer Current Visit: Yes Status: Acute Code(s): C19 - MALIGNANT NEOPLASM OF RECTOSIGMOID JUNCTION SNOMED Code(s): 07271380 (3) Orthostatic hypotension Current Visit: Yes Status: Acute Code(s): I95.1 - ORTHOSTATIC HYPOTENSION SNOMED Code(s): 47995920 (4) Syncope Current Visit: Yes Status: Acute Code(s): R55 - SYNCOPE AND COLLAPSE SNOMED Code(s): 754750183 Plan: His syncope is clearly related to orthostatic hypotension related to volume loss and chemotherapy. He is feeling better. Continue current management. May consider adding knee-high stockings. We'll follow him as needed
[2019-10-29] MEDS: ONDANSETRON 4 MG/2 ML VIAL IVP PRN ×2 (13:15→20:54)
--- NOTE | 2019-10-29 15:45 | P.PN ---
Subjective Progress Note Date: 10/29/19 Principal diagnosis: Metastatic colon cancer Objective - Vital Signs Vital signs: Vital Signs Temp 97.7 F 10/29/19 14:47 Pulse 100 10/29/19 14:47 Resp 14 10/29/19 14:47 BP 98/68 10/29/19 14:47 Pulse Ox 99 10/29/19 14:47 Intake & Output 10/28/19 10/29/19 10/29/19 18:59 06:59 18:59 Output Total 200 Balance -200 Output: Emesis 200 Other: Voiding Method Toilet Toilet # Voids 2 1 1 # Bowel Movements 2 - Exam Gen: No eye contact, uncomfortable although no distress, alert and appropriate Neck: Left neck palpable nodule 3-4cm ahrd nodular and shotty LN palpable bilaterally Head: NCAT O/P: Dry mucus membranes no thrush Lungs: CTA bilateral no wheezes, no increased effort Abdomen: Mild distention, firm, BS present, tender to palpation with guarding Heart: Tachy, reg Ext: Left Leg 5/5 Right 5/5. Left Arm and Right Arm 5/5 - Improved No rashes No lesions to skin Pale Pscyh: Anxious and uncomfortable. - Labs CBC & Chem 7: 10/28/19 01:26 10/28/19 12:30 Labs: Abnormal Lab Results - Last 24 Hours (Table) 10/28/19 10/28/19 10/29/19 Range/Units 17:00 20:39 11:39 POC Glucose (mg/dL) 123 H 128 H 146 H (75-99) mg/dL Assessment and Plan (1) Metastatic colorectal cancer Current Visit: Yes Status: Acute Code(s): C19 - MALIGNANT NEOPLASM OF RECTOSIGMOID JUNCTION SNOMED Code(s): 18439219 (2) Orthostatic hypotension Current Visit: Yes Status: Acute Code(s): I95.1 - ORTHOSTATIC HYPOTENSION SNOMED Code(s): 52283099 (3) Syncope Current Visit: Yes Status: Acute Code(s): R55 - SYNCOPE AND COLLAPSE SNOMED Code(s): 291525415 (4) Hypokalemia Current Visit: Yes Status: Acute Code(s): E87.6 - HYPOKALEMIA SNOMED Code(s): 31757347 Plan: patient was kept for monitoring in observation. Dr. Whalen spoke to Dr. Bain. Low potassium has resolved Echo and further work-up of syncope per cardio and primary team Physician Attest: I have completed the full history and physical and developed the above impression and plan, agree with dictation, dictated as a scribe.
[2019-10-29 16:38] LABS: Glucose,Whole Blood 94 mg/dL (75-99)
[2019-10-29 20:34] LABS: Glucose,Whole Blood 106 mg/dL (75-99)
[2019-10-29] MEDS: GABAPENTIN 300 MG CAP PO SCH (20:53)
[2019-10-29] MEDS: ATORVASTATIN 20 MG TAB PO SCH (20:58)
--- NOTE | 2019-10-29 22:51 | PN ---
PROGRESS NOTE This patient is a 44-year-old male who has severe orthostatic hypotension and dizziness, status post chemotherapy 4 days ago. He was placed on midodrine after discussion with Dr. Whalen, the investigative shopper/oncologist. Continues to have some dizziness and syncope today. Postural hypotension despite large amounts of IV fluids. No arrhythmias were seen. Blood pressure 103/59, O2 100%, pulse 96, respiratory rate 16, temperature 97.9. Abdomen is soft, distended due to obesity. Heart: S1, S2. Lungs are clear. Neck is supple. HEENT is normocephalic, atraumatic. Pupils equal, round, reactive. EXTREMITIES: No cyanosis, clubbing, edema. Hemoglobin is 11.1, sodium 136. ASSESSMENT: 1. Hypokalemia. 2. Metastatic colon cancer. 3. Static hypotension, syncope. The syncope could be related to orthostatic hypotension due to volume loss and chemotherapy. Feeling better. Knee-high stockings. Possibly discharge home in the morning if he is feeling better. MMODL / IJN: [id number] /
[2019-10-30] MEDS: SODIUM CHLORIDE 0.9% 1,000 ML IV SCH ×3 (04:08→20:51)
[2019-10-30 06:31] LABS: Glucose,Whole Blood 81 mg/dL (75-99)
[2019-10-30] MEDS: MIDODRINE 5 MG TAB PO SCH ×3 (07:48→16:52)
[2019-10-30] MEDS: HYDROcodone/APAP 5-325MG 1 EACH TAB PO PRN ×3 (07:48→22:07)
[2019-10-30] MEDS: levETIRAcetam 500 MG TAB PO SCH ×2 (07:48→20:50)
[2019-10-30] MEDS: DULoxetine HCL 60 MG CAPSULE.DR PO SCH (07:48)
[2019-10-30] MEDS: metFORMIN 850 MG TAB PO SCH ×3 (07:48→16:52)
[2019-10-30] MEDS: MULTIVITAMINS, THERA 1 EACH TAB PO SCH (07:48)
[2019-10-30 11:42] LABS: Glucose,Whole Blood 104 mg/dL (75-99)
[2019-10-30 16:45] LABS: Glucose,Whole Blood 98 mg/dL (75-99)
[2019-10-30 20:16] LABS: Glucose,Whole Blood 102 mg/dL (75-99)
[2019-10-30] MEDS: ATORVASTATIN 20 MG TAB PO SCH (20:50)
[2019-10-30] MEDS: GABAPENTIN 300 MG CAP PO SCH (20:50)
[2019-10-30] MEDS: MECLIZINE 25 MG TAB PO PRN (22:07)
[2019-10-30] MEDS: ONDANSETRON 4 MG/2 ML VIAL IVP PRN (22:08)
--- NOTE | 2019-10-30 23:21 | PN ---
PROGRESS NOTE This patient is a 44-year-old white male, status post chemotherapy. Dizziness. Syncopal. He was found to have postural hypotension, received IV fluids. He still has some 20-point drop in his blood pressure standing and sitting. He was started on midodrine 5 mg t.i.d. Now he says the room is spinning. He is eating a little bit better. He is feeing a little bit better. We are going to give him Antivert. Blood pressure 103/59, O2 100%, pulse 96, respiratory rate 16. Hemoglobin is 11.1, sodium 136, potassium 4.7. CARDIOVASCULAR: S1, S2. LUNGS: Clear. GI: Soft. ASSESSMENT: 1. Hypokalemia. 2. Metastatic colon cancer. 3. Orthostatic hypotension. 4. Syncope. 5. Orthostatic hypotension due to volume loss, chemotherapy. Feeling better. Start Antivert. Will send him home tomorrow morning. MMODL / IJN: [id number] /
[2019-10-31] MEDS: SODIUM CHLORIDE 0.9% 1,000 ML IV SCH ×2 (03:15→12:09)
[2019-10-31 06:38] LABS: Glucose,Whole Blood 88 mg/dL (75-99)
[2019-10-31] MEDS: metFORMIN 850 MG TAB PO SCH ×3 (07:25→16:39)
[2019-10-31] MEDS: MIDODRINE 5 MG TAB PO SCH ×3 (07:38→17:38)
[2019-10-31] MEDS: levETIRAcetam 500 MG TAB PO SCH ×2 (07:38→21:54)
[2019-10-31] MEDS: HYDROcodone/APAP 5-325MG 1 EACH TAB PO PRN ×3 (07:39→23:59)
[2019-10-31] MEDS: MULTIVITAMINS, THERA 1 EACH TAB PO SCH (07:39)
[2019-10-31] MEDS: DULoxetine HCL 60 MG CAPSULE.DR PO SCH (07:39)
[2019-10-31 08:06] LABS: Anisocytosis Slight; Basophils % (A) 0 %; Eosinophils % (A) 0 %; HCT 32.1 % (39.0-53.0); HGB 10.6 gm/dL (13.0-17.5); Hypochromasia Slight; Lymphocytes # (A) 0.6 k/uL (1.0-4.8); Lymphocytes % (A) 7 %; MCH 25.9 pg (25.0-35.0); MCHC 32.9 g/dL (31.0-37.0); MCV 78.7 fL (80.0-100.0); Mean Platelet Volume 6.8; Microcytosis Slight; Monocytes # (A) 0.5 k/uL (0-1.0); Monocytes % (A) 6 %; Neutrophils # (A) 7.5 k/uL (1.3-7.7); Neutrophils % (A) 85 %; Platelet Count 389 k/uL (150-450); Poikilocytosis Slight; RBC 4.09 m/uL (4.30-5.90); RDW 17.1 % (11.5-15.5); WBC 8.8 k/uL (3.8-10.6)
[2019-10-31 08:16] LABS: ALT 21 U/L (4-49); AST 26 U/L (17-59); African American GFR (CKD) >90 (>60 ml/min/1.73 sqM); Albumin 2.4 g/dL (3.5-5.0); Alkaline Phosphatase 266 U/L (38-126); Anion Gap 7 mmol/L; Blood Urea Nitrogen 3 mg/dL (9-20); Calcium 8.2 mg/dL (8.4-10.2); Carbon Dioxide 17 mmol/L (22-30); Chloride 112 mmol/L (98-107); Glucose 101 mg/dL (74-99); Non-African American GFR(CKD) >90 (>60 ml/min/1.73 sqM); Potassium 3.1 mmol/L (3.5-5.1); Sodium 136 mmol/L (137-145); Total Bilirubin 0.3 mg/dL (0.2-1.3); Total Protein 4.8 g/dL (6.3-8.2)
[2019-10-31] MEDS ORDERED: Potassium Replacement Protocol 1 EACH MISC MISCELLANE PRN ×2 (08:22→08:43)
[2019-10-31] MEDS ORDERED: Magnesium Replacement Protocol 1 EACH MISC MISCELLANE PRN ×2 (08:57→10:32)
[2019-10-31] MEDS ORDERED: POTASSIUM CHLORIDE ER 20 MEQ TAB.ER PO SCH (09:00)
[2019-10-31] MEDS: MECLIZINE 25 MG TAB PO PRN ×2 (09:08→21:54)
[2019-10-31] MEDS: POTASSIUM CHLORIDE ER 20 MEQ TAB.ER PO SCH ×2 (09:08→10:50)
[2019-10-31] MEDS: MAGNESIUM SULFATE-D5W PMX 1 GM in DEXTROSE/WATER 1 100ML.BAG IVPB SCH ×3 (10:49→13:21)
[2019-10-31 11:52] LABS: Glucose,Whole Blood 113 mg/dL (75-99)
[2019-10-31] MEDS: ONDANSETRON 4 MG/2 ML VIAL IVP PRN (12:13)
--- NOTE | 2019-10-31 14:30 | P.PN ---
Subjective Progress Note Date: 10/31/19 Principal diagnosis: Metastatic colon cancer Still with his chronic diarrhea, electrolyes decreased and dizzyness. Objective - Vital Signs Vital signs: Vital Signs Temp 98.2 F 10/31/19 12:00 Pulse 91 10/31/19 12:00 Resp 16 10/31/19 12:00 BP 127/77 10/31/19 12:00 Pulse Ox 99 10/31/19 12:00 Intake & Output 10/30/19 10/31/19 10/31/19 18:59 06:59 18:59 Intake Total 970 900 Balance 970 900 Intake: Intake, IV Titration 250 Amount Sodium Chloride 0.9% 1, 250 000 ml @ 125 mls/hr IV . Q8H [facility] Rx#:[id number] Oral 720 900 Other: Voiding Method Toilet Toilet # Voids 2 2 - Exam Gen: No eye contact, uncomfortable although no distress, alert and appropriate Neck: Left neck palpable nodule 3-4cm ahrd nodular and shotty LN palpable bilaterally Head: NCAT O/P: Dry mucus membranes no thrush Lungs: CTA bilateral no wheezes, no increased effort Abdomen: Mild distention, firm, BS present, tender to palpation with guarding Heart: Tachy, reg Ext: Left Leg 5/5 Right 5/5. Left Arm and Right Arm 5/5 - Improved No rashes No lesions to skin Pale Pscyh: Anxious and uncomfortable. - Labs CBC & Chem 7: 10/31/19 07:26 10/31/19 07:26 Labs: Abnormal Lab Results - Last 24 Hours (Table) 10/30/19 10/31/19 10/31/19 Range/Units 20:15 07:26 07:26 RBC 4.09 L (4.30-5.90) m/uL Hgb 10.6 L (13.0-17.5) gm/dL Hct 32.1 L (39.0-53.0) % MCV 78.7 L (80.0-100.0) fL RDW 17.1 H (11.5-15.5) % Lymphocytes # 0.6 L (1.0-4.8) k/uL Sodium 136 L (137-145) mmol/L Potassium 3.1 L (3.5-5.1) mmol/L Chloride 112 H (98-107) mmol/L Carbon Dioxide 17 L (22-30) mmol/L BUN 3 L (9-20) mg/dL Creatinine 0.63 L (0.66-1.25) mg/dL Glucose 101 H (74-99) mg/dL POC Glucose (mg/dL) 102 H (75-99) mg/dL Calcium 8.2 L (8.4-10.2) mg/dL Magnesium (1.6-2.3) mg/dL Alkaline Phosphatase 266 H (38-126) U/L Total Protein 4.8 L (6.3-8.2) g/dL Albumin 2.4 L (3.5-5.0) g/dL 10/31/19 10/31/19 Range/Units 07:26 11:48 RBC (4.30-5.90) m/uL Hgb (13.0-17.5) gm/dL Hct (39.0-53.0) % MCV (80.0-100.0) fL RDW (11.5-15.5) % Lymphocytes # (1.0-4.8) k/uL Sodium (137-145) mmol/L Potassium (3.5-5.1) mmol/L Chloride (98-107) mmol/L Carbon Dioxide (22-30) mmol/L BUN (9-20) mg/dL Creatinine (0.66-1.25) mg/dL Glucose (74-99) mg/dL POC Glucose (mg/dL) 113 H (75-99) mg/dL Calcium (8.4-10.2) mg/dL Magnesium 1.3 L (1.6-2.3) mg/dL Alkaline Phosphatase (38-126) U/L Total Protein (6.3-8.2) g/dL Albumin (3.5-5.0) g/dL Assessment and Plan (1) Metastatic colorectal cancer Current Visit: Yes Status: Acute Code(s): C19 - MALIGNANT NEOPLASM OF RECTOSIGMOID JUNCTION SNOMED Code(s): 79979908 (2) Orthostatic hypotension Current Visit: Yes Status: Acute Code(s): I95.1 - ORTHOSTATIC HYPOTENSION SNOMED Code(s): 06943711 (3) Syncope Current Visit: Yes Status: Acute Code(s): R55 - SYNCOPE AND COLLAPSE SNOMED Code(s): 867341860 (4) Hypokalemia Current Visit: Yes Status: Acute Code(s): E87.6 - HYPOKALEMIA SNOMED Code(s): 96790016 Plan: patient was kept for monitoring in observation. Dr. Whalen spoke to Dr. Bain. Microcytic Anemia: - Recheck Iron and B12 Electrolyte Abnormalities: - Secondary to GI loss and absorption diarrhea Orthostatic Hypotension: - Started on ANtivert Metastatic COlon Cancer: - Follow-up in office next week Physician Attest: I have completed the full history and physical and developed the above impression and plan, agree with dictation, dictated as a scribe.
[2019-10-31 15:48] LABS: Potassium 3.5 mmol/L (3.5-5.1)
[2019-10-31 16:37] LABS: Glucose,Whole Blood 93 mg/dL (75-99)
[2019-10-31 20:12] LABS: Glucose,Whole Blood 108 mg/dL (75-99)
[2019-10-31] MEDS: ATORVASTATIN 20 MG TAB PO SCH (21:54)
[2019-10-31] MEDS: GABAPENTIN 300 MG CAP PO SCH (21:54)
[2019-10-31 23:50] LABS: % Iron Saturation 13.62 (15.00-50.00); Iron 32 ug/dL (65-175); Total Iron Binding Capacity 235 ug/dL (228-460)
[2019-11-01 00:06] LABS: Ferritin 439.2 ng/mL (22.0-322.0); Folate, Serum >24.0 ng/mL
[2019-11-01] MEDS: SODIUM CHLORIDE 0.9% 1,000 ML IV SCH ×4 (00:13→17:53)
--- NOTE | 2019-11-01 02:19 | PN ---
PROGRESS NOTE White male, metastatic colon cancer. Having no chest pain or shortness of breath. Dizziness is this is improved with Antivert. He was supposed to be discharged home on midodrine and Antivert but he had low potassium and magnesium which will need to be replaced. Possible discharge home in the morning. ASSESSMENT: 1. Vertigo. 2. Hypokalemia. 3. Hypomagnesemia. 4. Orthostatic hypotension. Home on midodrine tomorrow. ANA / IKEN: [id number] /
[2019-11-01] MEDS: HYDROcodone/APAP 5-325MG 1 EACH TAB PO PRN ×4 (06:25→23:53)
[2019-11-01 06:28] LABS: Glucose,Whole Blood 98 mg/dL (75-99)
[2019-11-01] MEDS: levETIRAcetam 500 MG TAB PO SCH ×2 (07:58→21:08)
[2019-11-01] MEDS: MULTIVITAMINS, THERA 1 EACH TAB PO SCH (07:58)
[2019-11-01] MEDS: DULoxetine HCL 60 MG CAPSULE.DR PO SCH (07:58)
[2019-11-01] MEDS: metFORMIN 850 MG TAB PO SCH ×3 (07:59→17:03)
[2019-11-01] MEDS: MIDODRINE 5 MG TAB PO SCH ×3 (07:59→17:03)
[2019-11-01 10:58] LABS: Glucose,Whole Blood 95 mg/dL (75-99)
[2019-11-01] MEDS ORDERED: POTASSIUM CHLORIDE ER 20 MEQ TAB.ER PO STA (12:33)
--- NOTE | 2019-11-01 15:47 | P.PN ---
Subjective Progress Note Date: 11/01/19 Principal diagnosis: this is a 44-year-old male who was recently admitted with dizziness and was also found to have hypokalemia and hypomagnesemia. Patient continues to be extremely dizzy and states that the room is spinning and does have meclizine but states it has not been helping. Patient also found to have orthostatic hypotension and was started on Midodrine and will continue. patient does follow with Dr. Whalen in the outpatient setting for metastatic colon cancer and is actively receiving chemo treatments at this time. Patient states he has not had much of an appetite although is eating a little with no reports of diarrhea noted today. No reports of chest pain, shortness of breath, or palpitations. Patient is afebrile. Objective - Vital Signs Vital signs: Vital Signs Temp 98.4 F 11/01/19 15:11 Pulse 91 11/01/19 15:19 Resp 18 11/01/19 15:19 BP 121/82 11/01/19 15:11 Pulse Ox 100 11/01/19 15:11 Intake & Output 10/31/19 11/01/19 11/01/19 18:59 06:59 18:59 Intake Total 900 1100 2340 Balance 900 1100 2340 Intake: Intake, IV Titration 1100 1500 Amount Magnesium Sulfate-D5w Pmx 100 1 gm In Dextrose/Water 1 100ml.bag @ 100 mls/hr IVPB Q1H [facility] Rx#: [id number] Sodium Chloride 0.9% 1, 1000 1500 000 ml @ 125 mls/hr IV . Q8H [facility] Rx#:[id number] Oral 900 840 Other: Voiding Method Toilet # Voids 2 1 2 - Exam Gen: This is a 44-year-old male sitting up in bed awake, alert and oriented 3, well-developed, well-nourished, obese. HEENT: Head is atraumatic, normocephalic. Pupils equal, round. Sclerae is anicteric. NECK: Supple. No JVD. No lymphadenopathy. No thyromegaly. LUNGS: Clear to auscultation. No wheezes or rhonchi. No intercostal retractions. HEART: Regular rate and rhythm. No murmur. ABDOMEN: Soft. obese. Bowel sounds are present. No masses. mildly tender on palpation. EXTREMITIES: No pedal edema. No calf tenderness. NEUROLOGICAL: Patient is awake, alert and oriented x3. Cranial nerves 2 through 12 are grossly intact. - Labs CBC & Chem 7: 10/31/19 07:26 10/31/19 15:35 Labs: Abnormal Lab Results - Last 24 Hours (Table) 10/31/19 10/31/19 Range/Units 15:35 20:11 POC Glucose (mg/dL) 108 H (75-99) mg/dL Iron 32 L (65-175) ug/dL % Saturation 13.62 L (15.00-50.00) Ferritin 439.2 H (22.0-322.0) ng/mL Vitamin B12 1380.0 H (200.0-944.0) pg/mL Assessment and Plan Assessment: vertigo hypokalemia Hypomagnesemia Orthostatic hypotension history of metastatic colon cancer currently receiving chemo Plan: Continue current medications, management, and symptomatic treatment. Will repeat a.m. labs. increase activity as tolerated. Possibly discharge home [facility].
[2019-11-01] MEDS: MECLIZINE 25 MG TAB PO PRN ×2 (16:05→23:53)
[2019-11-01 16:08] LABS: Glucose,Whole Blood 91 mg/dL (75-99)
[2019-11-01 20:49] LABS: Glucose,Whole Blood 103 mg/dL (75-99)
[2019-11-01] MEDS: GABAPENTIN 300 MG CAP PO SCH (21:08)
[2019-11-01] MEDS: ATORVASTATIN 20 MG TAB PO SCH (21:08)
[2019-11-02] MEDS: HYDROcodone/APAP 5-325MG 1 EACH TAB PO PRN ×4 (05:57→22:57)
[2019-11-02 06:31] LABS: Glucose,Whole Blood 102 mg/dL (75-99)
[2019-11-02] MEDS: SODIUM CHLORIDE 0.9% 1,000 ML IV SCH ×3 (06:55→20:56)
[2019-11-02] MEDS: MULTIVITAMINS, THERA 1 EACH TAB PO SCH (07:46)
[2019-11-02] MEDS: DULoxetine HCL 60 MG CAPSULE.DR PO SCH (07:46)
[2019-11-02] MEDS: MIDODRINE 5 MG TAB PO SCH ×3 (07:46→17:47)
[2019-11-02] MEDS: levETIRAcetam 500 MG TAB PO SCH ×2 (07:46→20:57)
[2019-11-02] MEDS: metFORMIN 850 MG TAB PO SCH ×3 (07:47→17:58)
[2019-11-02 08:06] LABS: African American GFR (CKD) >90 (>60 ml/min/1.73 sqM); Anion Gap 4 mmol/L; Blood Urea Nitrogen <2 mg/dL (9-20); Carbon Dioxide 17 mmol/L (22-30); Chloride 114 mmol/L (98-107); Glucose 98 mg/dL (74-99); Non-African American GFR(CKD) >90 (>60 ml/min/1.73 sqM); Potassium 3.1 mmol/L (3.5-5.1); Sodium 135 mmol/L (137-145)
[2019-11-02] MEDS ORDERED: Potassium Replacement Protocol 1 EACH MISC MISCELLANE PRN (08:17)
[2019-11-02] MEDS: POTASSIUM CHLORIDE ER 20 MEQ TAB.ER PO SCH ×2 (08:41→10:03)
[2019-11-02] MEDS ORDERED: POTASSIUM CHLORIDE ER 20 MEQ TAB.ER PO STA (10:30)
[2019-11-02 11:12] LABS: Glucose,Whole Blood 94 mg/dL (75-99)
[2019-11-02 16:43] LABS: Glucose,Whole Blood 93 mg/dL (75-99)
[2019-11-02] MEDS: ONDANSETRON 4 MG/2 ML VIAL IVP PRN (17:58)
[2019-11-02 20:48] LABS: Glucose,Whole Blood 87 mg/dL (75-99)
[2019-11-02] MEDS: GABAPENTIN 300 MG CAP PO SCH (20:57)
[2019-11-02] MEDS: ATORVASTATIN 20 MG TAB PO SCH (20:57)
--- NOTE | 2019-11-02 22:54 | PN ---
PROGRESS NOTE He states he is feeling less dizzy today, wants to stay 1 more day. He said he had a bad day yesterday. His electrolytes have been replaced. Suppose to get chemo again Sunday. No diarrhea today. Eating a little. Blood pressure 120s over 80s, pulse 90s, respiratory rate 16 to 18, temperature 98.4, O2 of 100%. CARDIOVASCULAR: S1, S2. LUNGS: Clear. PSYCH: Fair mood and affect. GI: Soft. ASSESSMENT: 1. Vertigo .. 2. Hypokalemia. 3. Hypomagnesemia with . 4. History of metastatic cancer. Continue current management. Possible discharge home tomorrow. He seems to be stable at this point. MMODL / IJN: [id number] /
[2019-11-03] MEDS: HYDROcodone/APAP 5-325MG 1 EACH TAB PO PRN (05:40)
[2019-11-03] MEDS: SODIUM CHLORIDE 0.9% 1,000 ML IV SCH (05:41)
[2019-11-03 06:25] LABS: Glucose,Whole Blood 90 mg/dL (75-99)
[2019-11-03 06:31] LABS: Anisocytosis Slight; Basophils % (A) 0 %; Eosinophils # (A) 0.1 k/uL (0-0.7); Eosinophils % (A) 2 %; HCT 31.4 % (39.0-53.0); HGB 10.5 gm/dL (13.0-17.5); Hypochromasia Slight; Lymphocytes # (A) 0.4 k/uL (1.0-4.8); Lymphocytes % (A) 8 %; MCH 26.1 pg (25.0-35.0); MCHC 33.4 g/dL (31.0-37.0); MCV 78.2 fL (80.0-100.0); Mean Platelet Volume 6.6; Microcytosis Slight; Monocytes # (A) 0.5 k/uL (0-1.0); Monocytes % (A) 8 %; Neutrophils # (A) 4.5 k/uL (1.3-7.7); Neutrophils % (A) 80 %; Platelet Count 301 k/uL (150-450); Poikilocytosis Slight; RBC 4.02 m/uL (4.30-5.90); RDW 18.2 % (11.5-15.5); WBC 5.6 k/uL (3.8-10.6)
[2019-11-03 06:36] LABS: ALT 18 U/L (4-49); AST 30 U/L (17-59); African American GFR (CKD) >90 (>60 ml/min/1.73 sqM); Albumin 2.1 g/dL (3.5-5.0); Alkaline Phosphatase 241 U/L (38-126); Anion Gap 5 mmol/L; Blood Urea Nitrogen 3 mg/dL (9-20); Calcium 8.3 mg/dL (8.4-10.2); Carbon Dioxide 20 mmol/L (22-30); Chloride 111 mmol/L (98-107); Glucose 82 mg/dL (74-99); Magnesium 1.6 mg/dL (1.6-2.3); Non-African American GFR(CKD) >90 (>60 ml/min/1.73 sqM); Potassium 3.6 mmol/L (3.5-5.1); Sodium 136 mmol/L (137-145); Total Bilirubin 0.3 mg/dL (0.2-1.3); Total Protein 4.4 g/dL (6.3-8.2)
[2019-11-03 08:03] VITALS: BP 130/84; PULSE 89; RESP 16; TEMP 98.1
[2019-11-03] MEDS: DULoxetine HCL 60 MG CAPSULE.DR PO SCH (08:04)
[2019-11-03] MEDS: levETIRAcetam 500 MG TAB PO SCH (08:04)
[2019-11-03] MEDS: MULTIVITAMINS, THERA 1 EACH TAB PO SCH (08:04)
[2019-11-03] MEDS: metFORMIN 850 MG TAB PO SCH (08:05)
[2019-11-03] MEDS: MIDODRINE 5 MG TAB PO SCH (08:05)
[2019-11-03] MEDS: MECLIZINE 25 MG TAB PO PRN (09:00)
--- NOTE | 2019-11-03 11:08 | P.PN ---
Subjective Progress Note Date: 11/03/19 Principal diagnosis: Syncope, orthostatic hypotension. In follow-up today patient is in the process of being discharged. He has generalized complaints of feeling unwell but, was not able to qualify her quantify any particular signs or symptoms. Patient continues to have near s yncopal/syncopal episodes when he changes positions abruptly. He states that he was started on Antivert and it does help for a few hours. Explained to patient that he is supposed take it 3 times a day so, hopefully he will have another dose ready for when his symptoms recur. He is concerned about his pain meds as his follow-up with his pain management doctor was adjusted due to hospitalization. Objective - Vital Signs Vital signs: Vital Signs Temp 98.1 F 11/03/19 07:48 Pulse 89 11/03/19 07:48 Resp 16 11/03/19 07:48 BP 130/84 11/03/19 07:48 Pulse Ox 100 11/03/19 07:48 Intake & Output 11/02/19 11/03/19 11/03/19 18:59 06:59 18:59 Intake Total 3000 Balance 3000 Intake: Intake, IV Titration 750 Amount Sodium Chloride 0.9% 1, 750 000 ml @ 125 mls/hr IV . Q8H [facility] Rx#:[id number] Oral 2250 Other: Voiding Method Toilet Toilet # Voids 1 2 # Bowel Movements 1 - Constitutional General appearance: Present: cooperative, no acute distress, obese - EENT Eyes: Present: anicteric sclerae ENT: Present: hearing grossly normal - Respiratory Respiratory: bilateral: CTA - Cardiovascular Rhythm: regular Heart sounds: normal: S1, S2 Abnormal Heart Sounds: Absent: systolic murmur, diastolic murmur, rub, S3 Gallop, S4 Gallop, click, other - Peripheral edema leg Peripheral Edema: bilateral: None - Gastrointestinal General gastrointestinal: Present: normal bowel sounds, soft - Musculoskeletal Musculoskeletal: Present: generalized weakness, strength equal bilaterally - Psychiatric Psychiatric: Present: A&O x's 3, appropriate affect, intact judgment & insight - Labs CBC & Chem 7: 11/03/19 05:39 11/03/19 05:39 Labs: Abnormal Lab Results - Last 24 Hours (Table) 11/03/19 11/03/19 Range/Units 05:39 05:39 RBC 4.02 L (4.30-5.90) m/uL Hgb 10.5 L (13.0-17.5) gm/dL Hct 31.4 L (39.0-53.0) % MCV 78.2 L (80.0-100.0) fL RDW 18.2 H (11.5-15.5) % Lymphocytes # 0.4 L (1.0-4.8) k/uL Sodium 136 L (137-145) mmol/L Chloride 111 H (98-107) mmol/L Carbon Dioxide 20 L (22-30) mmol/L BUN 3 L (9-20) mg/dL Creatinine 0.56 L (0.66-1.25) mg/dL Calcium 8.3 L (8.4-10.2) mg/dL Alkaline Phosphatase 241 H (38-126) U/L Total Protein 4.4 L (6.3-8.2) g/dL Albumin 2.1 L (3.5-5.0) g/dL Assessment and Plan (1) Metastatic colorectal cancer Narrative/Plan: He will keep current plan for chemo on follow-up with primary Oncologist Current Visit: Yes Status: Chronic Priority: Medium Code(s): C19 - MALIGNANT NEOPLASM OF RECTOSIGMOID JUNCTION SNOMED Code(s): 17666900 (2) Orthostatic hypotension Narrative/Plan: Patient has been orientated on changing positions slowly for quite some time. He has been placed on Antivert with statements that he feels like it helps. This is ordered 3 times a day. Current Visit: Yes Status: Chronic Priority: High Code(s): I95.1 - ORTHOSTATIC HYPOTENSION SNOMED Code(s): 80838774 (3) Diarrhea Narrative/Plan: Patient has utilized multiple different medications for treatment of the same. We will try Questran 4 times a day, this was sent to his [facility]. Current Visit: Yes Status: Chronic Priority: High Code(s): R19.7 - DIARRHEA, UNSPECIFIED SNOMED Code(s): 09822207 Plan: Patient's pain meds are managed by pain services. Patient missed his appointment. Encouraged patient to contact pain services to discuss his appointment being adjusted and that if he was due for pain med refill they will likely provide him with a prescription until he is seen in the office.
--- NOTE | 2019-11-22 22:34 | DS ---
DISCHARGE SUMMARY DATE OF ADMISSION: 11/03/2019. DISCHARGE DATE: 11/03/2019 DISCHARGE MEDICATIONS: 1. Lipitor 20 mg daily. 2. Glucophage 850 a.c. t.i.d. 3. Zestril 10 mg daily. 4. Atenolol 25 mg daily. 5. Multivitamin one daily. 6. Neurontin 300 mg q.h.s. 7. [place] 10/325 q.4 hours. 8. Cymbalta 120 mg p.o. daily. 9. Keppra 500 b.i.d. 10.Xeloda 2500 mg daily. 11.Zofran 4 mg q.6 hours p.r.n. 12.Lantus 50 units daily. 13.Midodrine 2.5 a.c. t.i.d. 14.Antivert 12.5 mg p.o. t.i.d. 15.Questran 4 mg q.i.d. CONDITION: Stable. PROGNOSIS: Guarded. Ambulate as tolerated. This is a white male came in with severe dizziness, lightheadedness, syncope. The patient was treated with IV fluids, Antivert for dizziness and patient improved. The patient was discharged home to follow up as an outpatient with Neurology. MMNIRMAL / IKEN: [id number] /
== END 2019-11-03 11:00 | disposition home or self-care (01) | DRG 312 ==
LOC: EC 00:52 → 1SOBS 02:44 → OBSVTOIN 11-03 07:06
PROVIDERS: ADMIT Family Medicine; ATTEND Family Medicine
PROC: 05HF33Z Insertion of Infusion Device into Left Cephalic Vein, Percutaneous Approach (ICD-10-PCS; principal; 2019-10-29 10:30)
DX: I95.1 Orthostatic hypotension (principal); C77.2 Secondary and unspecified malignant neoplasm of intra-abdominal lymph nodes; C77.0 Secondary and unspecified malignant neoplasm of lymph nodes of head, face and neck; C19 Malignant neoplasm of rectosigmoid junction; C78.7 Secondary malignant neoplasm of liver and intrahepatic bile duct; E11.40 Type 2 diabetes mellitus with diabetic neuropathy, unspecified; E11.36 Type 2 diabetes mellitus with diabetic cataract; F25.9 Schizoaffective disorder, unspecified; E86.0 Dehydration; D50.9 Iron deficiency anemia, unspecified; G40.909 Epilepsy, unspecified, not intractable, without status epilepticus; Z79.4 Long term (current) use of insulin; F31.9 Bipolar disorder, unspecified; Z20.828 Contact with and (suspected) exposure to other viral communicable diseases; E78.5 Hyperlipidemia, unspecified; G89.3 Neoplasm related pain (acute) (chronic); E83.42 Hypomagnesemia; E87.6 Hypokalemia; I10 Essential (primary) hypertension; M54.2 Cervicalgia; H26.9 Unspecified cataract; T45.1X5A Adverse effect of antineoplastic and immunosuppressive drugs, initial encounter; R19.7 Diarrhea, unspecified; R91.8 Other nonspecific abnormal finding of lung field; E66.9 Obesity, unspecified; Z68.29 Body mass index [BMI] 29.0-29.9, adult; Z79.899 Other long term (current) drug therapy; Z86.79 Personal history of other diseases of the circulatory system; Z87.891 Personal history of nicotine dependence; Z87.19 Personal history of other diseases of the digestive system; Z98.890 Other specified postprocedural states; Z90.49 Acquired absence of other specified parts of digestive tract; Z90.89 Acquired absence of other organs; Z88.8 Allergy status to other drugs, medicaments and biological substances; Z91.013 Allergy to seafood; W01.198A Fall on same level from slipping, tripping and stumbling with subsequent striking against other object, initial encounter; Y92.009 Unspecified place in unspecified non-institutional (private) residence as the place of occurrence of the external cause; Y93.01 Activity, walking, marching and hiking; Z81.1 Family history of alcohol abuse and dependence; Z83.79 Family history of other diseases of the digestive system; Z82.49 Family history of ischemic heart disease and other diseases of the circulatory system
CPT/HCPCS: 36410; 36415; 70450; 71046; 72125; 76937; 80048; 80053; 81001; 82607; 82728; 82746; 83540; 83550; 83735; 83921; 84132; 84484; 85025; 85610; 85730; 93005; 93306; 96361; 96374; 99285

== ENCOUNTER 2019-11-03 23:08 | Observation (INO) | payer MEDICARE, OTHER ==
[2019-11-03] MEDS ORDERED: SODIUM CHLORIDE 0.9% 1,000 ML IV STA (23:40)
[2019-11-03] MEDS ORDERED: ONDANSETRON 4 MG/2 ML VIAL IVP STA (23:40)
--- NOTE | 2019-11-04 00:14 | ED ---
Dizziness HPI - General Chief Complaint: Dizziness Stated Complaint: Revisit Vomiting Time Seen by Provider: 11/03/19 23:10 Source: patient, RN notes reviewed, old records reviewed Mode of arrival: ambulatory Limitations: no limitations - History of Present Illness Initial Comments: This is a 44-year-old male DF for evaluation of multiple complaints weakness lightheadedness dizziness episodes of vomiting. Patient has no headaches denies any injuries or trauma was just hospital for monitoring for the past week symptoms got worse weak when on. Again denies any chest pain or shortness of breath no abdominal pain with the vomiting. Was unable to his medications down tonight given Antivert prior to discharge for dizziness has not helped the is very much the sensation of spinning especially change of position MD Complaint: dizziness, difficulty walking -: days(s) Timing: gradual onset, intermittent, waxing/waning Description: sense of movement, "room spinning", off-balance, difficulty walking History of Same: No History of Trauma: No Severity: moderate Improves With: remaining still Worsens With: movement Associated Symptoms: ataxia, loss of appetite, weakness - Related Data Home Medications Medication Instructions Recorded Confirmed Atorvastatin Calcium [Lipitor] 20 mg PO HS 09/14/16 10/28/19 metFORMIN HCL [Glucophage] 850 mg PO AC-TID 09/14/16 10/28/19 atenoloL [Atenolol] 25 mg PO DAILY 07/04/18 10/28/19 lisinopriL [Zestril] 10 mg PO HS 07/04/18 10/28/19 Multivitamins, Thera [Multivitamin 1 tab PO DAILY 01/09/19 10/28/19 (formulary)] HYDROcodone/APAP 10-325MG [[place] 1 tab PO Q4H PRN 10/17/19 10/28/19 10-325] levETIRAcetam [Keppra] 500 mg PO BID 10/22/19 10/28/19 Capecitabine [Xeloda] 2,500 mg PO DIRECTED 10/28/19 10/28/19 Insulin Glargine [Lantus] 50 unit SQ DAILY 10/28/19 10/28/19 Ondansetron [Zofran] 8 mg PO Q6H PRN 10/28/19 10/28/19 Previous Rx's Medication Instructions Recorded Gabapentin [Neurontin] 300 mg PO HS #30 cap 10/03/19 DULoxetine HCL [Cymbalta] 120 mg PO DAILY #60 cap 10/18/19 Midodrine [ProAmatine] 2.5 mg PO AC-TID #30 tab 10/28/19 Meclizine [Antivert] 25 mg PO TID PRN 10 Days #30 tab 11/02/19 Cholestyramine (with Sugar) 4 gm PO QID #120 packet 11/03/19 [Questran] Allergies Allergy/AdvReac Type Severity Reaction Status Date / Time carbamazepine [From Tegretol] Allergy Severe Anaphylaxis Verified 11/03/19 23:15 lithium [[place]] Allergy Severe Anaphylaxis Verified 11/03/19 23:15 shellfish derived Allergy Severe Anaphylaxis Verified 11/03/19 23:15 aspartame Allergy SWELLING Verified 11/03/19 23:15 OF THROAT citalopram hydrobromide AdvReac Intermediate Nausea & Verified 11/03/19 23:15 [From Celexa] Vomiting Review of Systems ROS Statement: Those systems with pertinent positive or pertinent negative responses have been documented in the HPI. ROS Other: All systems not noted in ROS Statement are negative. Past Medical History Past Medical History: Cancer, Diabetes Mellitus, Eye Disorder, Hyperlipidemia, Hypertension, Seizure Disorder, Supraventricular Tachycardia (SVT), Syncope Additional Past Medical History / Comment(s): Pt recently admitted to [facility] on 09/17/19 with intractable nausea/vomitting and pain associated with cancer. Other hx: 06/2018 colon cancer with lymph node involvement with chemotherapy last 3-4 weeks ago and had radiation tx to lymph node, NIDDM type II, neuropathy bilateral hands and feet, falls, chronic generalized pain, R eye decreased vision-pt things d/t cataract, sepsis d/t ruptured appendix, iron anemia, History of Any Multi-Drug Resistant Organisms: None Reported Past Surgical History: Appendectomy, Bowel Resection, Hernia Repair, Orthopedic Surgery, Tonsillectomy Additional Past Surgical History / Comment(s): 08/11/18 cervical lymph node bx, exploratory laparotomy/appy and R colectomy, umbilical hernia repair, UVPPP, R knee arthroscopy, port a caths-currently L chest. Past Anesthesia/Blood Transfusion Reactions: Motion Sickness Past Psychological History: Bipolar, Depression, Schizoaffective Disorder, Schizophrenia Smoking Status: Former smoker Past Alcohol Use History: None Reported Past Drug Use History: Marijuana - Past Family History Father Family Medical History: Liver Disease Additional Family Medical History / Comment(s): Father had ETOH abuse. He from cirrhosis. Mother Family Medical History: Congestive Heart Failure (CHF), Pulmonary Embolus Additional Family Medical History / Comment(s): Mother from CHF General Exam - General Exam Comments Initial Comments: NIH of 0, finger-nose testing is normal [id number] testing is normal Limitations: no limitations General appearance: alert, in no apparent distress Head exam: Present: atraumatic, normocephalic, normal inspection Eye exam: Present: normal appearance, PERRL, EOMI. Absent: scleral icterus, conjunctival injection, periorbital swelling ENT exam: Present: normal exam, mucous membranes moist Neck exam: Present: normal inspection. Absent: tenderness, meningismus, lymphadenopathy Respiratory exam: Present: normal lung sounds bilaterally. Absent: respiratory distress, wheezes, rales, rhonchi, stridor Cardiovascular Exam: Present: regular rate, normal rhythm, normal heart sounds. Absent: systolic murmur, diastolic murmur, rubs, gallop, clicks GI/Abdominal exam: Present: soft, normal bowel sounds. Absent: distended, tenderness, guarding, rebound, rigid Extremities exam: Present: normal inspection, full ROM, normal capillary refill. Absent: tenderness, pedal edema, joint swelling, calf tenderness Back exam: Present: normal inspection Neurological exam: Present: alert, oriented X3, CN II-XII intact Psychiatric exam: Present: normal affect, normal mood Skin exam: Present: warm, dry, intact, normal color. Absent: rash Course Vital Signs 11/03/19 23:10 Temperature 97.5 F L Pulse Rate 85 Respiratory 18 Rate Blood Pressure 131/84 O2 Sat by Pulse 99 Oximetry - Reevaluation(s) Reevaluation #1: 11/04/19 00:12 Medical record and prior hospitalization are reviewed Reevaluation #2: 11/04/19 01:27 Patient still feels unwell off-balance with complaint complaint nausea and vomiting Medical Decision Making - Medical Decision Making 44 male to the admitted for evaluation by neurology secondary to vertiginous symptoms - Lab Data Result diagrams: 11/04/19 01:34 11/04/19 01:34 - Radiology Data Radiology results: report reviewed (CT brain and chest x-rays negative for acute disease), image reviewed Disposition Clinical Impression: Adenocarcinoma, colon, Intractable nausea and vomiting, Dizziness, Vertigo Disposition: ADMITTED IP TO THIS HOSP Condition: Good Is patient prescribed a controlled substance at d/c from ED?: No
--- NOTE | 2019-11-04 00:53 | CT ---
EXAMINATION TYPE: CT brain wo con DATE OF EXAM: 11/04/2019 COMPARISON: 10/28/2019 HISTORY: Weakness CT DLP: 1121.4 mGycm Automated exposure control for dose reduction was used. Ventricles and sulci appear normal. There is no mass effect nor midline shift. There is no sign of in tracranial hemorrhage. The calvarium is intact. There is no evidence of cerebral edema. Temporal bone s show normal aeration. IMPRESSION: Negative unenhanced head CT scan. No change.
--- NOTE | 2019-11-04 00:54 | XR ---
EXAMINATION TYPE: XR chest 2V DATE OF EXAM: 11/04/2019 COMPARISON: 10/28/2019 HISTORY: Weakness TECHNIQUE: FINDINGS: Heart and mediastinum are normal. Lungs are clear. Costophrenic angles are clear. There are no hilar masses. There is left-sided central venous catheter with tip in the superior vena cava. Bon y thorax appears intact. IMPRESSION: No active cardiopulmonary disease. Normal heart. No change.
[2019-11-04] MEDS ORDERED: diphenhydrAMINE 50 MG/ML 1 ML VIAL IVP STA (01:28)
[2019-11-04] MEDS ORDERED: ONDANSETRON 4 MG/2 ML VIAL IVP PRN (01:28)
[2019-11-04] MEDS ORDERED: diphenhydrAMINE 50 MG/ML 1 ML VIAL IVP PRN (01:28)
[2019-11-04 02:00] LABS: Anisocytosis Slight; Basophils # (A) 0.1 k/uL (0-0.2); Basophils % (A) 1 %; Eosinophils # (A) 0.2 k/uL (0-0.7); Eosinophils % (A) 2 %; HCT 36.5 % (39.0-53.0); HGB 11.4 gm/dL (13.0-17.5); Hypochromasia Slight; Lymphocytes # (A) 0.5 k/uL (1.0-4.8); Lymphocytes % (A) 6 %; MCH 24.2 pg (25.0-35.0); MCHC 31.2 g/dL (31.0-37.0); MCV 77.6 fL (80.0-100.0); Mean Platelet Volume 6.9; Microcytosis Slight; Monocytes # (A) 0.6 k/uL (0-1.0); Monocytes % (A) 7 %; Neutrophils # (A) 7.4 k/uL (1.3-7.7); Neutrophils % (A) 83 %; Platelet Count 315 k/uL (150-450); Poikilocytosis Slight; RDW 18.4 % (11.5-15.5); WBC 8.9 k/uL (3.8-10.6)
[2019-11-04 02:10] LABS: INR 1.2 (<1.2); Partial Thromboplastin Time 29.9 sec (22.0-30.0); Prothrombin Time 12.3 sec (9.0-12.0)
[2019-11-04 02:15] LABS: ALT 20 U/L (4-49); AST 33 U/L (17-59); African American GFR (CKD) >90 (>60 ml/min/1.73 sqM); Albumin 2.7 g/dL (3.5-5.0); Alkaline Phosphatase 293 U/L (38-126); Anion Gap 10 mmol/L; Blood Urea Nitrogen 5 mg/dL (9-20); Calcium 9.2 mg/dL (8.4-10.2); Carbon Dioxide 18 mmol/L (22-30); Chloride 107 mmol/L (98-107); Creatine Kinase 30 U/L (55-170); Glucose 98 mg/dL (74-99); Magnesium 1.6 mg/dL (1.6-2.3); Non-African American GFR(CKD) >90 (>60 ml/min/1.73 sqM); Phosphorus 2.8 mg/dL (2.5-4.5); Potassium 3.1 mmol/L (3.5-5.1); Sodium 135 mmol/L (137-145); Total Bilirubin 0.6 mg/dL (0.2-1.3); Total Protein 5.3 g/dL (6.3-8.2)
[2019-11-04 05:59] LABS: Appearance,Urine Clear (Clear); Bilirubin,Urine Negative (Negative); Blood,Urine Negative (Negative); Color,Urine Yellow; Glucose,Urine (UA) Negative (Negative); Ketones,Urine Negative (Negative); Leukocyte Esterase,Urine Negative (Negative); Nitrite,Urine Negative (Negative); Protein,Urine Negative (Negative); Specific Gravity,Urine 1.013 (1.001-1.035); Urobilinogen,Urine <2.0 mg/dL (<2.0)
[2019-11-04] MEDS ORDERED: DIAZEPAM 5 MG/ML 2 ML INJ IVP PRN (11:46)
[2019-11-04] MEDS: HYDROcodone/APAP 10-325MG 1 EACH TAB PO PRN ×2 (12:08→17:28)
[2019-11-04] MEDS ORDERED: ONDANSETRON 4 MG TAB PO PRN (12:39)
[2019-11-04] MEDS: CAPECITABINE PO SCH (13:10)
[2019-11-04] MEDS: CHOLESTYRAMINE (WITH SUGAR) 4 GM PACKET PO SCH ×3 (13:11→22:56)
[2019-11-04] MEDS: POTASSIUM CHLORIDE ER 20 MEQ TAB.ER PO SCH (13:16)
[2019-11-04] MEDS ORDERED: TRIMETHOBENZAMIDE 100 MG/ML 2 ML VIAL IM PRN (13:19)
[2019-11-04] MEDS: PANTOPRAZOLE 40 MG/10 ML VIAL IVP SCH ×2 (13:27→20:48)
--- NOTE | 2019-11-04 14:32 | HP ---
HISTORY AND PHYSICAL This is a 44-year-old male who was admitted with multiple complaints, lightheaded, dizziness with vomiting, no headaches or injuries or trauma. Was recently discharged and he went home. He denies any pain or shortness of breath. No abdominal pain, but he was still vomiting. Antivert did not work for dizziness at which time he came back here. He is requesting something for dizziness. As the room spinning and changes with positions. Potassium was low. He is going to rehydrate him with given him different potassium pills. He is about 1 week out from chemotherapy from Oncology for metastatic colon cancer. HOME MEDICINES: Lipitor, Glucophage, atenolol, Zestril, multivitamin, [place], Keppra, Xeloda, Lantus, Zofran. ALLERGIES: See list. 14 POINT REVIEW OF SYSTEMS: Please see further orders. PAST MEDICAL HISTORY: History of metastatic colon cancer, diabetes mellitus, hypertension, seizure disorder, SVT, syncope. He has chronic nausea, vomiting, and pain associated with cancer and dizziness. He has type 2 diabetic mellitus, generalized pain, neuropathy, cataracts. SURGERIES: Appendectomy, bowel resection, hernia repair, orthopedic surgery, tonsillectomy, colectomy, laparotomy, umbilical hernia repair, right knee arthroscopy, Port-A-Cath, history of bipolar depression, schizoaffective schizophrenia. FAMILY HISTORY: Father with liver disease. Mother CHF, PM, pulmonary embolism. PHYSICAL EXAMINATION: He keeps his eyes closed and he has [[place]], his BMI is over 40. HEAD: Normocephalic, atraumatic. Pupils equal, round, reactive. CARDIOVASCULAR: S1, S2. LUNGS: Essentially clear. ABDOMEN: Distended due to obesity. EXTREMITIES: Possibly some dry skin turgor, poor mucous membranes. NEUROLOGIC: Cranial nerves are intact. PSYCH: Fair mood and affect. Temp is 97.5, pulse 85, respiratory rate 16 to 18, blood pressure 130s/80s. ASSESSMENT: Dizziness, hypokalemia, hyponatremia, metastatic colon cancer with instead of Antivert for dizziness. Get GI consult for progressive vomiting. MMODL / IJN: [id number] /
[2019-11-04] MEDS: ONDANSETRON 4 MG/2 ML VIAL IVP SCH ×2 (17:13→22:57)
[2019-11-04 17:14] LABS: Glucose,Whole Blood 119 mg/dL (75-99)
[2019-11-04] MEDS: metFORMIN 850 MG TAB PO SCH (18:04)
[2019-11-04] MEDS: MIDODRINE 5 MG TAB PO SCH (18:04)
[2019-11-04] MEDS: GABAPENTIN 300 MG CAP PO SCH (20:48)
[2019-11-04] MEDS: levETIRAcetam 500 MG TAB PO SCH (20:48)
[2019-11-04] MEDS: ATORVASTATIN 20 MG TAB PO SCH (20:48)
[2019-11-04] MEDS ORDERED: MECLIZINE 25 MG TAB PO PRN (21:15)
--- NOTE | 2019-11-04 21:15 | P.CNNES ---
History of Present Illness Consult date: 11/04/19 Requesting physician: David Fam Reason for Consult: Vertigo History of Present Illness: Patient is a 44-year-old male, with history of hypertension, diabetes, hyperlipidemia, bipolar disorder, schizoaffective disorder, also has history of stage IV colon cancer, for which he is on chemotherapy for last 1 year. Patient states that he has been feeling dizziness with nausea off and on since he has been undergoing chemotherapy for the last 1 year. Patient states that about a week ago he suffered from a fall after his blood pressure dropped, and he hit his head on the floor. Since then he has been having more intense vertigo, which is occurring every day, lasting for a few seconds to 1 hour. He has nausea and sometimes vomiting. Denies any hearing loss, tinnitus, any sinus issues or upper respiratory infection. Patient denies recent upper respiratory infection or sinus congestion. Patient states that he does not have to change his body or head position to get vertigo. It can occur by itself. He denies any focal symptoms otherwise. CT head showed no active cardiopulmonary disease. Normal heart. EKG shows normal sinus rhythm. Patient has diabetes for last 13 years. Denies hypertension. He states he was diagnosed with stage IV lung cancer early last year. He underwent surgery on 07/04/2018 followed by a 14 radiation treatments. He then received 14-15 sessions of chemotherapy. He has smoked marijuana 1-2 joints per day. Patient smokes a pack a day from age [age], then quit. Patient states that he does have neuropathy in the fingers from chemotherapy. Review of Systems As above in detail in HPI. All other 14 point of review systems unremarkable. Patient states he does have neuropathy with some numbness in the fingers. He has some balance issues. Past Medical History Past Medical History: Cancer, Diabetes Mellitus, Eye Disorder, Hyperlipidemia, Hypertension, Seizure Disorder, Supraventricular Tachycardia (SVT), Syncope Additional Past Medical History / Comment(s): Pt recently admitted to [facility] on 09/17/19 with intractable nausea/vomitting and pain associated with cancer. Other hx: 06/2018 colon cancer with lymph node involvement with chemotherapy last 3-4 weeks ago and had radiation tx to lymph node, NIDDM type II, neuropathy bilateral hands and feet, falls, chronic generalized pain, R eye decreased vision-pt things d/t cataract, sepsis d/t ruptured appendix, iron anemia, History of Any Multi-Drug Resistant Organisms: None Reported Past Surgical History: Appendectomy, Bowel Resection, Hernia Repair, Orthopedic Surgery, Tonsillectomy Additional Past Surgical History / Comment(s): 08/11/18 cervical lymph node bx, exploratory laparotomy/appy and R colectomy, umbilical hernia repair, UVPPP, R knee arthroscopy, port a caths-currently L chest. Past Anesthesia/Blood Transfusion Reactions: Motion Sickness Past Psychological History: Bipolar, Depression, Schizoaffective Disorder, Schizophrenia Additional Psychological History / Comment(s): Pt states he has been under stress d/t changing living arrangements. Currently is living with friends. Pt states d/t his multiple moves, he has lost his glucometer and walker. He needs a script for a new walker. Pt does not drive. He uses the bus or [place] [employer]. He has established with [facility]. Pt states he has hx of 20 suicide attempts but does not feel suicidal at this time or recently. Smoking Status: Former smoker Past Alcohol Use History: None Reported Additional Past Alcohol Use History / Comment(s): Pt started smoking in 1987 and quit in 1992. Past Drug Use History: Marijuana Additional Drug Use History / Comment(s): Occasional Marijuana use. - Past Family History Father Family Medical History: Liver Disease Additional Family Medical History / Comment(s): Father had ETOH abuse. He from cirrhosis. Mother Family Medical History: Congestive Heart Failure (CHF), Pulmonary Embolus Additional Family Medical History / Comment(s): Mother from CHF Medications and Allergies Home Medications Medication Instructions Recorded Confirmed Type Atorvastatin Calcium [Lipitor] 20 mg PO HS 09/14/16 11/04/19 History metFORMIN HCL [Glucophage] 850 mg PO AC-TID 09/14/16 11/04/19 History atenoloL [Atenolol] 25 mg PO DAILY 07/04/18 11/04/19 History lisinopriL [Zestril] 10 mg PO HS 07/04/18 11/04/19 History Multivitamins, Thera [Multivitamin 1 tab PO DAILY 01/09/19 11/04/19 History (formulary)] Gabapentin [Neurontin] 300 mg PO HS #30 cap 10/03/19 11/04/19 Rx HYDROcodone/APAP 10-325MG [[place] 1 tab PO Q4H PRN 10/17/19 11/04/19 History 10-325] DULoxetine HCL [Cymbalta] 120 mg PO DAILY #60 cap 10/18/19 11/04/19 Rx levETIRAcetam [Keppra] 500 mg PO BID 10/22/19 11/04/19 History Capecitabine [Xeloda] 2,500 mg PO DIRECTED 10/28/19 11/04/19 History Insulin Glargine [Lantus] 50 unit SQ DAILY 10/28/19 11/04/19 History Midodrine [ProAmatine] 2.5 mg PO AC-TID #30 tab 10/28/19 11/04/19 Rx Ondansetron [Zofran] 8 mg PO Q6H PRN 10/28/19 11/04/19 History Meclizine [Antivert] 25 mg PO TID PRN 10 Days #30 tab 11/02/19 11/04/19 Rx Cholestyramine (with Sugar) 4 gm PO QID #120 packet 11/03/19 11/04/19 Rx [Questran] Allergies Allergy/AdvReac Type Severity Reaction Status Date / Time carbamazepine [From Tegretol] Allergy Severe Anaphylaxis Verified 11/04/19 07:16 lithium [[place]] Allergy Severe Anaphylaxis Verified 11/04/19 07:16 shellfish derived Allergy Severe Anaphylaxis Verified 11/04/19 07:16 aspartame Allergy SWELLING Verified 11/04/19 07:16 OF THROAT citalopram hydrobromide AdvReac Intermediate Nausea & Verified 11/04/19 07:16 [From Celexa] Vomiting Physical Examination - Vital Signs Vital Signs: Vital Signs Temp Pulse Pulse Resp BP BP Pulse Ox 11/04/19 13:09 98 F 93 12 148/77 99 11/04/19 12:58 97.5 F L 104 H 18 121/82 98 11/04/19 10:00 18 11/04/19 09:00 83 18 117/100 99 11/04/19 08:00 18 11/04/19 02:28 18 147/81 11/04/19 01:30 16 130/81 11/03/19 23:30 85 18 133/75 11/03/19 23:10 97.5 F L 85 18 131/84 99 Intake and Output 07/11/04/19 11/04/19 22:59 06:59 14:59 Other: Voiding Method Toilet # Voids 1 Weight 99.79 kg On examination patient is a middle aged male, in no acute distress is alert and awake fully oriented. Speech and language functions are normal. Attention and concentration fund of knowledge is adequate. Patient has evidence of tardive dyskinesia with facial repetitive movements. On cranial nerve examination pupils are round and reacting to light, visual coello are full, extraocular muscles are intact. He has obvious opacity in the right lens. He can only see shadows out of right eye. He has some early stages cataract in the left as well. Face is symmetric, tongue protrudes to the midline. Palatal elevation and sensation normal. Hearing and shoulder shrug normal. On muscle strength testing there is no pronator drift and the strength is normal in arms and legs. Reflexes are trace to 1, and plantars downgoing. Sensory touch is equal. No ataxia for [id number] or [id number] testing. Tone and bulk of muscles normal. Gait deferred. No bruit or murmur, peripheral pulses present. Chest is clear, abdomen soft nontender. Results - Laboratory Findings CBC and BMP: 11/04/19 01:34 11/04/19 01:34 Abnormal Lab Findings: Abnormal Labs 11/04/19 11/04/19 11/04/19 01:34 01:34 01:34 Hgb 11.4 L Hct 36.5 L MCV 77.6 L MCH 24.2 L RDW 18.4 H Lymphocytes # 0.5 L PT 12.3 H INR 1.2 H Sodium 135 L Potassium 3.1 L Carbon Dioxide 18 L BUN 5 L Creatinine 0.53 L Alkaline Phosphatase 293 H Creatine Kinase 30 L Total Protein 5.3 L Albumin 2.7 L Assessment and Plan Assessment: * New onset vertigo of 7 days' duration since he suffered from a fall with syncope from low blood pressure. Patient's symptoms are suggestive of possible peripheral vestibular dysfunction. Doubt central cause. * Stage IV colon cancer, on chemotherapy. * Diabetes Plan: * Antivert 25 mg every 8 hours as needed vertigo. * Medrol Dosepak, if medically cleared. * If symptoms persist, suggest ENT evaluation to evaluate for VNG/ENG to evaluate for peripheral vestibular dysfunction. * Patient had a negative MRI on 10/03/2019. Current computed tomography scan of the head and neurological examination is normal. * Neurologically clear otherwise.
[2019-11-05 00:05] LABS: Glucose,Whole Blood 90 mg/dL (75-99)
[2019-11-05 06:10] LABS: Glucose,Whole Blood 89 mg/dL (75-99)
[2019-11-05] MEDS: HYDROcodone/APAP 10-325MG 1 EACH TAB PO PRN ×4 (06:18→23:37)
[2019-11-05] MEDS: ONDANSETRON 4 MG/2 ML VIAL IVP SCH ×4 (06:18→23:37)
--- NOTE | 2019-11-05 07:19 | P.CONS ---
History of Present Illness - Reason for Consult Consult date: 11/04/19 Nausea and vomiting Requesting physician: David Fam - Chief Complaint Dizziness, nausea - History of Present Illness 44-year-old male with multiple medical comorbidities including hypertension, diabetes mellitus, neuropathy, bipolar disorder and metastatic colon cancer currently receiving chemotherapy who presented to the hospital with multiple complaints including dizziness, lightheadedness and nausea and vomiting. Patient reports a longstanding history of nausea and vomiting. She reports that this is been present in association with chemotherapy which she has been receiving with the oncology service. The patient will take either Zofran or Compazine as needed for the nausea. He denies any problems with reflux disease. He denies any PPI therapy or H2 antagonist therapy. The patient has also had chronic diarrhea since starting treatment for his metastatic colon cancer. He reports previously undergoing colectomy after which he was started on chemotherapy. He reports multiple loose bowel movements daily secondary to the chemotherapy and will take either Imodium or Lomotil as needed for his loose bowel movements. Review of Systems REVIEW OF SYSTEMS: CONSTITUTIONAL: Denies any fevers, chills, weight change but she does have fatigue. CARDIOVASCULAR: Denies any chest pain, palpitations high or low blood pressures RESPIRATORY: Denies any shortness of breath, hemoptysis or cough. GENITOURINARY: No dysuria or hematuria. MUSCULOSKELETAL: No weakness reported. SKIN: Denies any new rashes or lesions, jaundice or pallor. PSYCHIATRIC: Denies any depression or anxiety. NEUROLOGY: Denies headache, denies any new focal deficits, continues to report dizziness. EARS/NOSE/THROAT: No recent hearing change, congestion, nasal discharge or sore throat. EYES: No pain in eyes, discharge or change in vision. GASTROINTESTINAL: As per HPI. Past Medical History Past Medical History: Cancer, Diabetes Mellitus, Eye Disorder, Hyperlipidemia, Hypertension, Seizure Disorder, Supraventricular Tachycardia (SVT), Syncope Additional Past Medical History / Comment(s): Pt recently admitted to [facility] on 09/17/19 with intractable nausea/vomitting and pain associated with cancer. Other hx: 06/2018 colon cancer with lymph node involvement with chemotherapy last 3-4 weeks ago and had radiation tx to lymph node, NIDDM type II, neuropathy bilateral hands and feet, falls, chronic generalized pain, R eye decreased vision-pt things d/t cataract, sepsis d/t ruptured appendix, iron anemia, History of Any Multi-Drug Resistant Organisms: None Reported Past Surgical History: Appendectomy, Bowel Resection, Hernia Repair, Orthopedic Surgery, Tonsillectomy Additional Past Surgical History / Comment(s): 08/11/18 cervical lymph node bx, exploratory laparotomy/appy and R colectomy, umbilical hernia repair, UVPPP, R knee arthroscopy, port a caths-currently L chest. Past Anesthesia/Blood Transfusion Reactions: Motion Sickness Past Psychological History: Bipolar, Depression, Schizoaffective Disorder, Schizophrenia Additional Psychological History / Comment(s): Pt states he has been under stress d/t changing living arrangements. Currently is living with friends. Pt states d/t his multiple moves, he has lost his glucometer and walker. He needs a script for a new walker. Pt does not drive. He uses the bus or friends to get to [facility]. He has established with [facility]. Pt states he has hx of 20 suicide attempts but does not feel suicidal at this time or recently. Smoking Status: Former smoker Past Alcohol Use History: None Reported Additional Past Alcohol Use History / Comment(s): Pt started smoking in 1987 and quit in 1992. Past Drug Use History: Marijuana Additional Drug Use History / Comment(s): Occasional Marijuana use. - Past Family History Father Family Medical History: Liver Disease Additional Family Medical History / Comment(s): Father had ETOH abuse. He from cirrhosis. Mother Family Medical History: Congestive Heart Failure (CHF), Pulmonary Embolus Additional Family Medical History / Comment(s): Mother from CHF Medications and Allergies Home Medications Medication Instructions Recorded Confirmed Type Atorvastatin Calcium [Lipitor] 20 mg PO HS 09/14/16 11/04/19 History metFORMIN HCL [Glucophage] 850 mg PO AC-TID 09/14/16 11/04/19 History atenoloL [Atenolol] 25 mg PO DAILY 07/04/18 11/04/19 History lisinopriL [Zestril] 10 mg PO HS 07/04/18 11/04/19 History Multivitamins, Thera [Multivitamin 1 tab PO DAILY 01/09/19 11/04/19 History (formulary)] Gabapentin [Neurontin] 300 mg PO HS #30 cap 10/03/19 11/04/19 Rx HYDROcodone/APAP 10-325MG [[place] 1 tab PO Q4H PRN 10/17/19 11/04/19 History 10-325] DULoxetine HCL [Cymbalta] 120 mg PO DAILY #60 cap 10/18/19 11/04/19 Rx levETIRAcetam [Keppra] 500 mg PO BID 10/22/19 11/04/19 History Capecitabine [Xeloda] 2,500 mg PO DIRECTED 10/28/19 11/04/19 History Insulin Glargine [Lantus] 50 unit SQ DAILY 10/28/19 11/04/19 History Midodrine [ProAmatine] 2.5 mg PO AC-TID #30 tab 10/28/19 11/04/19 Rx Ondansetron [Zofran] 8 mg PO Q6H PRN 10/28/19 11/04/19 History Meclizine [Antivert] 25 mg PO TID PRN 10 Days #30 tab 11/02/19 11/04/19 Rx Cholestyramine (with Sugar) 4 gm PO QID #120 packet 11/03/19 11/04/19 Rx [Questran] Allergies Allergy/AdvReac Type Severity Reaction Status Date / Time carbamazepine [From Tegretol] Allergy Severe Anaphylaxis Verified 11/04/19 07:16 lithium [[place]] Allergy Severe Anaphylaxis Verified 11/04/19 07:16 shellfish derived Allergy Severe Anaphylaxis Verified 11/04/19 07:16 aspartame Allergy SWELLING Verified 11/04/19 07:16 OF THROAT citalopram hydrobromide AdvReac Intermediate Nausea & Verified 11/04/19 07:16 [From Celexa] Vomiting Physical Exam Vitals: Vital Signs Temp Pulse Pulse Resp BP BP Pulse Ox 11/05/19 03:10 98.5 F 100 15 118/72 98 11/05/19 03:00 100 15 11/04/19 21:00 98 14 11/04/19 19:15 97.7 F 98 14 130/63 99 11/04/19 13:09 98 F 93 12 148/77 99 11/04/19 12:58 97.5 F L 104 H 18 121/82 98 11/04/19 10:00 18 11/04/19 09:00 83 18 117/100 99 11/04/19 08:00 18 Intake and Output 11/04/19 11/04/19 11/05/19 14:59 22:59 06:59 Intake Total 240 Balance 240 Intake: Oral 240 Other: Voiding Method Toilet Toilet Toilet # Voids 1 1 1 On physical examination, patient appears comfortable in no apparent distress. HEAD: Normocephalic, atraumatic. EYES: No scleral icterus. No conjunctival injection. MOUTH: No lesions, tongue midline. NECK: Trachea midline, no gross abnormalities. CHEST: Decreased air and all coello. HEART: S1-S2 appreciated. ABDOMEN: Soft, obese. Bowel sounds are positive. No organomegaly. No guarding or rigidity. EXTREMITIES: No pedal edema. SKIN: No rashes, no jaundice. NEUROLOGIC: Alert and oriented x3. No focal deficits. Results CBC & Chem 7: 11/04/19 01:34 11/04/19 01:34 Labs: Abnormal Lab Results - Last 24 Hours (Table) 11/04/19 Range/Units 17:14 POC Glucose (mg/dL) 119 H (75-99) mg/dL Chest x-ray: report reviewed (No acute process noted on chest xray) Assessment and Plan (1) Intractable nausea and vomiting Narrative/Plan: 44-year-old male with multiple medical comorbidities including metastatic colon cancer currently being treated with chemotherapy with the oncology service who presented with multiple complaints including dizziness, nausea and vomiting. He reports symptoms of chronic nausea and vomiting treated with Zofran and Compazine at home since starting chemotherapy. He is also had chronic diarrhea for which he uses Imodium or Lomotil for symptomatic treatment. He has been having problems with dizziness after mechanical fall and is currently being evaluated by the neurology service. Etiology of nausea and vomiting is likely medication related secondary to chemotherapy, cannot rule out marijuana hyperemesis syndrome, uncontrolled reflux, or other etiology. Current Visit: Yes Status: Acute Priority: High Code(s): R11.2 - NAUSEA WITH VOMITING, UNSPECIFIED SNOMED Code(s): 288227443 (2) Adenocarcinoma, colon Current Visit: Yes Status: Chronic Priority: High Code(s): C18.9 - MALIGNANT NEOPLASM OF COLON, UNSPECIFIED SNOMED Code(s): 186529223 (3) Diarrhea Current Visit: No Status: Chronic Priority: High Code(s): R19.7 - DIARRHEA, UNSPECIFIED SNOMED Code(s): 94456353 Plan: Supportive care Okay for diet as tolerated Protonix therapy added Continue Zofran [id number] Tigan added as needed for breakthrough nausea Okay to continue antidiarrheals as needed for symptoms of diarrhea and loose stool No plans for endoscopic evaluation at this time Thank you for allowing us to participate in the care of the patient
[2019-11-05] MEDS: metFORMIN 850 MG TAB PO SCH ×3 (07:44→17:04)
[2019-11-05] MEDS: MIDODRINE 5 MG TAB PO SCH ×3 (07:44→17:26)
[2019-11-05] MEDS: PANTOPRAZOLE 40 MG/10 ML VIAL IVP SCH (08:28)
[2019-11-05] MEDS: MULTIVITAMINS, THERA 1 EACH TAB PO SCH (08:29)
[2019-11-05] MEDS: CHOLESTYRAMINE (WITH SUGAR) 4 GM PACKET PO SCH ×5 (08:29→20:58)
[2019-11-05] MEDS: levETIRAcetam 500 MG TAB PO SCH ×2 (08:29→20:59)
[2019-11-05] MEDS: DULoxetine HCL 60 MG CAPSULE.DR PO SCH (08:29)
[2019-11-05] MEDS: POTASSIUM CHLORIDE ER 20 MEQ TAB.ER PO SCH (08:29)
[2019-11-05] MEDS: atenoloL 25 MG TAB PO SCH (08:30)
[2019-11-05] MEDS: INSULIN DETEMIR (LEVEMIR) 100 UNIT/ML SYR SQ SCH (08:35)
[2019-11-05] MEDS ORDERED: LOPERAMIDE 2 MG CAP PO PRN (10:33)
[2019-11-05 11:36] LABS: Glucose,Whole Blood 96 mg/dL (75-99)
--- NOTE | 2019-11-05 13:31 | P.CONS ---
History of Present Illness - Reason for Consult Consult date: 11/05/19 On treatment for metastatic colon cancer Requesting physician: David Fam - Chief Complaint Vertigo - History of Present Illness Please see medical consulted dated 10/28/19 as nothing has changed in patient's malignancy history since that time. He has received no other treatment since that time. Patient is admitted with vertigo, he has persistent dizziness, nausea, intermittent vomiting, persistent diarrhea. Despite multiple remedies tried, most of them do not treat patient's symptoms. He had his last cycle of FOLFIRI mVasi 10/21, he is due for treatment this week. Review of Systems 14 point review of systems is negative except as stated in HPI Past Medical History Past Medical History: Cancer, Diabetes Mellitus, Eye Disorder, Hyperlipidemia, Hypertension, Seizure Disorder, Supraventricular Tachycardia (SVT), Syncope Additional Past Medical History / Comment(s): Pt recently admitted to [facility] on 09/17/19 with intractable nausea/vomitting and pain associated with cancer. Other hx: 06/2018 colon cancer with lymph node involvement with chemotherapy last 3-4 weeks ago and had radiation tx to lymph node, NIDDM type II, neuropathy bilateral hands and feet, falls, chronic generalized pain, R eye decreased vision-pt things d/t cataract, sepsis d/t ruptured appendix, iron anemia, History of Any Multi-Drug Resistant Organisms: None Reported Past Surgical History: Appendectomy, Bowel Resection, Hernia Repair, Orthopedic Surgery, Tonsillectomy Additional Past Surgical History / Comment(s): 08/11/18 cervical lymph node bx, exploratory laparotomy/appy and R colectomy, umbilical hernia repair, UVPPP, R knee arthroscopy, port a caths-currently L chest. Past Anesthesia/Blood Transfusion Reactions: Motion Sickness Past Psychological History: Bipolar, Depression, Schizoaffective Disorder, Schizophrenia Additional Psychological History / Comment(s): Pt states he has been under stress d/t changing living arrangements. Currently is living with friends. Pt states d/t his multiple moves, he has lost his glucometer and walker. He needs a script for a new walker. Pt does not drive. He uses the bus or friends to get to appts. He has established with [facility]. Pt states he has hx of 20 suicide attempts but does not feel suicidal at this time or recently. Smoking Status: Former smoker Past Alcohol Use History: None Reported Additional Past Alcohol Use History / Comment(s): Pt started smoking in 1987 and quit in 1992. Past Drug Use History: Marijuana Additional Drug Use History / Comment(s): Occasional Marijuana use. - Past Family History Father Family Medical History: Liver Disease Additional Family Medical History / Comment(s): Father had ETOH abuse. He from cirrhosis. Mother Family Medical History: Congestive Heart Failure (CHF), Pulmonary Embolus Additional Family Medical History / Comment(s): Mother from CHF Medications and Allergies Home Medications Medication Instructions Recorded Confirmed Type Atorvastatin Calcium [Lipitor] 20 mg PO HS 09/14/16 11/04/19 History metFORMIN HCL [Glucophage] 850 mg PO AC-TID 09/14/16 11/04/19 History atenoloL [Atenolol] 25 mg PO DAILY 07/04/18 11/04/19 History lisinopriL [Zestril] 10 mg PO HS 07/04/18 11/04/19 History Multivitamins, Thera [Multivitamin 1 tab PO DAILY 01/09/19 11/04/19 History (formulary)] Gabapentin [Neurontin] 300 mg PO HS #30 cap 10/03/19 11/04/19 Rx HYDROcodone/APAP 10-325MG [[place] 1 tab PO Q4H PRN 10/17/19 11/04/19 History 10-325] DULoxetine HCL [Cymbalta] 120 mg PO DAILY #60 cap 10/18/19 11/04/19 Rx levETIRAcetam [Keppra] 500 mg PO BID 10/22/19 11/04/19 History Capecitabine [Xeloda] 2,500 mg PO DIRECTED 10/28/19 11/04/19 History Insulin Glargine [Lantus] 50 unit SQ DAILY 10/28/19 11/04/19 History Midodrine [ProAmatine] 2.5 mg PO AC-TID #30 tab 10/28/19 11/04/19 Rx Ondansetron [Zofran] 8 mg PO Q6H PRN 10/28/19 11/04/19 History Meclizine [Antivert] 25 mg PO TID PRN 10 Days #30 tab 11/02/19 11/04/19 Rx Cholestyramine (with Sugar) 4 gm PO QID #120 packet 11/03/19 11/04/19 Rx [Questran] Allergies Allergy/AdvReac Type Severity Reaction Status Date / Time carbamazepine [From Tegretol] Allergy Severe Anaphylaxis Verified 11/04/19 07:16 lithium [[place]] Allergy Severe Anaphylaxis Verified 11/04/19 07:16 shellfish derived Allergy Severe Anaphylaxis Verified 11/04/19 07:16 aspartame Allergy SWELLING Verified 11/04/19 07:16 OF THROAT citalopram hydrobromide AdvReac Intermediate Nausea & Verified 11/04/19 07:16 [From Celexa] Vomiting Physical Exam Vitals: Vital Signs Temp Pulse Resp BP Pulse Ox 11/05/19 08:39 98.6 F 95 17 126/59 98 11/05/19 03:10 98.5 F 100 15 118/72 98 11/05/19 03:00 100 15 11/04/19 21:00 98 14 11/04/19 19:15 97.7 F 98 14 130/63 99 Intake and Output 11/04/19 11/05/19 11/05/19 22:59 06:59 14:59 Intake Total 240 236 Balance 240 236 Intake: Oral 240 236 Other: Voiding Method Toilet Toilet # Voids 1 1 - Constitutional General appearance: cooperative, no acute distress, obese - EENT Dry mucous membranes Eyes: anicteric sclerae ENT: hearing grossly normal - Neck Neck: no lymphadenopathy - Respiratory Respiratory: bilateral: CTA, rhonchi (A few scattered posteriorly) - Cardiovascular Rhythm: regular Heart sounds: normal: S1, S2 Abnormal Heart Sounds: no systolic murmur, no diastolic murmur, no rub, no S3 Gallop, no S4 Gallop, no click, no other leg Peripheral Edema: bilateral: None - Gastrointestinal General gastrointestinal: no absent bowel sounds, no decreased bowel sounds, no distended, no hepatomegaly, no hyperactive bowel sounds, normal bowel sounds, no organomegaly, no rigid, no scaphoid, soft, no splenomegaly, no tenderness, no umbilical hernia, no ventral hernia - Musculoskeletal Musculoskeletal: strength equal bilaterally - Psychiatric Psychiatric: A&O x's 3, appropriate affect, intact judgment & insight Results CBC & Chem 7: 11/04/19 01:34 11/04/19 01:34 Labs: Abnormal Lab Results - Last 24 Hours (Table) 11/04/19 Range/Units 17:14 POC Glucose (mg/dL) 119 H (75-99) mg/dL Chest x-ray: report reviewed CT Scan - head: report reviewed Assessment and Plan (1) Dizziness Current Visit: Yes Status: Chronic Priority: High Code(s): R42 - DIZZINESS AND GIDDINESS SNOMED Code(s): 355883834 (2) Vertigo Current Visit: Yes Status: Chronic Priority: High Code(s): R42 - DIZZINESS AND GIDDINESS SNOMED Code(s): 311060659 (3) Metastatic colorectal cancer Narrative/Plan: I asked patient if he felt if his symptoms were related to chemotherapy and he states that he feels this might be but he doesn't feel that all of them are. I did advise him that he could request dose adjustment to see if this alleviated some of the severity of his symptoms. He will think about it. Current Visit: No Status: Chronic Priority: Medium Code(s): C19 - MALIGNANT NEOPLASM OF RECTOSIGMOID JUNCTION SNOMED Code(s): 57379751 Plan: Patient is on multiple medications that can be associated with dizziness and vertigo. Patient has been told previously that he has orthostatic hypotension. He has been evaluated by Neurology as well as Gastroenterology. Patient states he was trying the Questran for the diarrhea but it makes him somewhat sick to his stomach. He is complaining today mostly about a runny nose. We will try a scopolamine patch. I told patient that if he has any side effects related to have the nurse remove immediately. Verbalized understanding.
--- NOTE | 2019-11-05 13:44 | P.PN ---
Subjective Progress Note Date: 11/05/19 Patient started on Antivert. States he is 30-40% better. No new neurological symptoms. Objective - Vital Signs Vital signs: Vital Signs Temp 98.6 F 11/05/19 08:39 Pulse 95 11/05/19 08:39 Resp 17 11/05/19 08:39 BP 126/59 11/05/19 08:39 Pulse Ox 98 11/05/19 08:39 Intake & Output 11/04/19 11/05/19 11/05/19 18:59 06:59 18:59 Intake Total 240 236 Balance 240 236 Intake: Oral 240 236 Other: Voiding Method Toilet Toilet # Voids 1 1 - Exam Patient is alert and awake, sitting in the bed. Speech and leverage functions are normal. Muscle strength is normal. No ataxia. - Labs CBC & Chem 7: 11/04/19 01:34 11/04/19 01:34 Labs: Abnormal Lab Results - Last 24 Hours (Table) 11/04/19 Range/Units 17:14 POC Glucose (mg/dL) 119 H (75-99) mg/dL Assessment and Plan Assessment: * New onset vertigo of 7 days' duration since he suffered from a fall with syncope from low blood pressure. Patient's symptoms are suggestive of possible peripheral vestibular dysfunction. Doubt central cause. * Stage IV colon cancer, on chemotherapy. * Diabetes Plan: * Antivert 25 mg every 8 hours as needed vertigo. * Medrol Dosepak, if medically cleared. * If symptoms persist, suggest ENT evaluation to evaluate for VNG/ENG to evaluate for peripheral vestibular dysfunction. * Patient had a negative MRI on 10/03/2019. Current computed tomography scan of the head and neurological examination is normal. * Neurologically clear otherwise. * We will sign off. Please call neurology if any other concerns.
[2019-11-05] MEDS: CAPECITABINE PO SCH (13:57)
[2019-11-05 16:39] LABS: Glucose,Whole Blood 62 mg/dL (75-99)
[2019-11-05 16:55] LABS: Glucose,Whole Blood 62 mg/dL (75-99)
[2019-11-05 17:07] LABS: Glucose,Whole Blood 84 mg/dL (75-99)
[2019-11-05] MEDS: PANTOPRAZOLE 40 MG TABLET PO SCH (17:26)
[2019-11-05] MEDS: GABAPENTIN 300 MG CAP PO SCH (20:58)
[2019-11-05] MEDS: ATORVASTATIN 20 MG TAB PO SCH (20:59)
[2019-11-05 21:03] LABS: Glucose,Whole Blood 98 mg/dL (75-99)
--- NOTE | 2019-11-05 21:38 | PN ---
PROGRESS NOTE This patient is a white male with metastatic colon cancer. He feels better today. GI doctor saw him, re-organized some medications for vomiting. Dizziness is mild but improving. Dr. Sparks saw the patient from Neurology. States he is 30% to 40% better. No new neurologic symptoms. He is alert and oriented x3. He is more alert, sitting up in bed. Blood pressure 120s over 50s, respiratory rate 16 to 18, pulse 96, respiratory rate CARDIOVASCULAR: S1, S2. LUNGS: Transmitted upper airway sounds. HEMATOLOGY: Negative Homans. PSYCH: Fair mood and affect. Hemoglobin is 11.4. Potassium 3.1. Sodium 134. ASSESSMENT: 1. New-onset vertigo. 2. History of fall with syncope. 3. Metastatic colon cancer, stage IV colon cancer, on chemotherapy. 4. Diabetes mellitus. Antivert 25 q.8 hours p.r.n., Medrol Dosepak. ENT to do an ENG as an outpatient. Neurologically stable. Possibly discharge home tomorrow. MMODL / IJN: [id number] /
[2019-11-06] MEDS: ONDANSETRON 4 MG/2 ML VIAL IVP SCH ×4 (06:35→23:02)
[2019-11-06] MEDS: HYDROcodone/APAP 10-325MG 1 EACH TAB PO PRN ×3 (06:35→23:01)
[2019-11-06 06:44] LABS: Glucose,Whole Blood 68 mg/dL (75-99)
[2019-11-06 07:03] LABS: Glucose,Whole Blood 75 mg/dL (75-99)
--- NOTE | 2019-11-06 07:18 | P.PN ---
Subjective Progress Note Date: 11/05/19 Principal diagnosis: Metastatic colon cancer, diarrhea, nausea and vomiting Patient is seen lying in bed reporting nausea vomiting greatly improved. He is still having some loose stool and an antidiarrheal has been added. Objective - Vital Signs Vital signs: Vital Signs Temp 98.1 F 11/05/19 14:21 Pulse 76 11/05/19 14:21 Resp 18 11/05/19 14:21 BP 121/81 11/05/19 14:21 Pulse Ox 100 11/05/19 14:21 Intake & Output 11/04/19 11/05/19 11/05/19 18:59 06:59 18:59 Intake Total 240 236 Balance 240 236 Intake: Oral 240 236 Other: Voiding Method Toilet Toilet # Voids 1 1 1 - Exam On physical examination, patient appears comfortable in no apparent distress. HEAD: Normocephalic, atraumatic. EYES: No scleral icterus. No conjunctival injection. MOUTH: No lesions, tongue midline. NECK: Trachea midline, no gross abnormalities. ABDOMEN: Soft, obese. Bowel sounds are positive. No organomegaly. No guarding or rigidity. EXTREMITIES: No pedal edema. SKIN: No rashes, no jaundice. NEUROLOGIC: Alert and oriented x3. No focal deficits. - Labs CBC & Chem 7: 11/04/19 01:34 11/04/19 01:34 Labs: Abnormal Lab Results - Last 24 Hours (Table) 11/04/19 Range/Units 17:14 POC Glucose (mg/dL) 119 H (75-99) mg/dL Assessment and Plan (1) Intractable nausea and vomiting Narrative/Plan: 44-year-old male with multiple medical comorbidities including metastatic colon cancer currently being treated with chemotherapy with the oncology service who presented with multiple complaints including dizziness, nausea and vomiting. He reports symptoms of chronic nausea and vomiting treated with Zofran and Compazine at home since starting chemotherapy. He is also had chronic diarrhea for which he uses Imodium or Lomotil for symptomatic treatment. He has been having problems with dizziness after mechanical fall and is currently being evaluated by the neurology service. Etiology of nausea and vomiting is likely medication related secondary to chemotherapy, cannot rule out marijuana hyper emesis syndrome, uncontrolled reflux, or other etiology. Symptoms are greatly improved today. Current Visit: Yes Status: Acute Priority: High Code(s): R11.2 - NAUSEA WITH VOMITING, UNSPECIFIED SNOMED Code(s): 955150251 (2) Adenocarcinoma, colon Current Visit: Yes Status: Chronic Priority: High Code(s): C18.9 - MALIGNANT NEOPLASM OF COLON, UNSPECIFIED SNOMED Code(s): 053563827 (3) Diarrhea Current Visit: No Status: Chronic Priority: High Code(s): R19.7 - DIARRHEA, UNSPECIFIED SNOMED Code(s): 00040643 Plan: Supportive care Okay for diet as tolerated Protonix therapy added Continue Zofran [id number] Tigan added as needed for breakthrough nausea Okay to continue antidiarrheals as needed for symptoms of diarrhea and loose stool No plans for endoscopic evaluation at this time Okay for discharge from GI standpoint when otherwise medically stable Thank you for allowing us to participate in the care of the patient, the GI service will stand by, please call us back with any questions or concerns
[2019-11-06] MEDS: PANTOPRAZOLE 40 MG TABLET PO SCH ×2 (07:23→17:17)
[2019-11-06] MEDS: metFORMIN 850 MG TAB PO SCH ×3 (07:24→17:17)
[2019-11-06] MEDS: MIDODRINE 5 MG TAB PO SCH ×3 (08:13→17:17)
[2019-11-06] MEDS: POTASSIUM CHLORIDE ER 20 MEQ TAB.ER PO SCH (08:14)
[2019-11-06] MEDS: levETIRAcetam 500 MG TAB PO SCH ×2 (08:14→20:18)
[2019-11-06] MEDS: MULTIVITAMINS, THERA 1 EACH TAB PO SCH (08:14)
[2019-11-06] MEDS: atenoloL 25 MG TAB PO SCH (08:14)
[2019-11-06] MEDS: DULoxetine HCL 60 MG CAPSULE.DR PO SCH (08:14)
[2019-11-06] MEDS: CHOLESTYRAMINE (WITH SUGAR) 4 GM PACKET PO SCH ×4 (08:15→20:18)
[2019-11-06] MEDS: INSULIN DETEMIR (LEVEMIR) 100 UNIT/ML SYR SQ SCH (08:19)
--- NOTE | 2019-11-06 10:34 | P.PN ---
Subjective Progress Note Date: 11/06/19 Principal diagnosis: vertigo. In f/u today pt still has c/o runny nose, his stomach is irritated for about a half hour after taking questran, no vomiting, he has not had a BM today. No other c/o on a 10 point ROS Objective - Vital Signs Vital signs: Vital Signs Temp 98.1 F 11/06/19 07:56 Pulse 90 11/06/19 07:56 Resp 16 11/06/19 07:56 BP 125/70 11/06/19 07:56 Pulse Ox 100 11/06/19 07:56 Intake & Output 11/05/19 11/06/19 11/06/19 18:59 06:59 18:59 Intake Total 458 200 420 Balance 458 200 420 Intake: Oral 458 200 420 Other: Voiding Method Toilet # Voids 1 1 - Constitutional General appearance: Present: cooperative, no acute distress, obese - EENT Eyes: Present: anicteric sclerae ENT: Present: hearing grossly normal - Respiratory Respiratory: bilateral: CTA - Cardiovascular Heart sounds: normal: S1, S2 Abnormal Heart Sounds: Absent: systolic murmur, diastolic murmur, rub, S3 Gallop, S4 Gallop, click, other - Gastrointestinal General gastrointestinal: Present: normal bowel sounds, soft - Musculoskeletal Musculoskeletal: Present: strength equal bilaterally - Psychiatric Psychiatric: Present: A&O x's 3, appropriate affect, intact judgment & insight - Labs CBC & Chem 7: 11/04/19 01:34 11/04/19 01:34 Labs: Abnormal Lab Results - Last 24 Hours (Table) 11/05/19 11/05/19 11/06/19 Range/Units 16:35 16:53 06:42 POC Glucose (mg/dL) 62 L 62 L 68 L (75-99) mg/dL Assessment and Plan (1) Dizziness Current Visit: Yes Status: Chronic Priority: High Code(s): R42 - DIZZINESS AND GIDDINESS SNOMED Code(s): 922717783 (2) Vertigo Current Visit: Yes Status: Chronic Priority: High Code(s): R42 - DIZZINESS AND GIDDINESS SNOMED Code(s): 151662741 (3) Metastatic colorectal cancer Narrative/Plan: I asked patient if he felt if his symptoms were related to chemotherapy and he states that he feels this might be but he doesn't feel that all of them are. I did advise him that he could request dose adjustment to see if this alleviated some of the severity of his symptoms. He will think about it. Reviewed with pt that treatment this week is obviously cancelled. He has a f/u with Dr. Whalen already scheduled for next week which he will keep. Will cont with treatment on sched there after if pt doing better Recommended that he continue to use the questran up to 4 times a day if it helps slow diarrhea down. He did get a Rx last admit for a 30 day supply Current Visit: No Status: Chronic Priority: Medium Code(s): C19 - MALIGNANT NEOPLASM OF RECTOSIGMOID JUNCTION SNOMED Code(s): 97146860 Plan: Patient is on multiple medications that can be associated with dizziness and vertigo. Patient has been told previously that he has orthostatic hypotension. He has been evaluated by Neurology as well as Gastroenterology. Did not try a scopolamine patch-too many cardiac interactions. Pt seems to be doing a little better today He cont to need K+ supplementation
[2019-11-06] MEDS: LORATADINE 10 MG TAB PO SCH (11:14)
[2019-11-06 11:35] LABS: Glucose,Whole Blood 99 mg/dL (75-99)
[2019-11-06] MEDS: CAPECITABINE PO SCH (12:47)
--- NOTE | 2019-11-06 14:30 | P.PN ---
Subjective Progress Note Date: 11/06/19 Patient states he is about 70% better. He still gets dizziness "out of blue" lasting for a few seconds. It can happen often while he is walking, but sometimes can happen sitting or laying. He does not have to change head or body position to provoke the vertigo. Patient is currently on Antivert. States he is 30-40% better. No new neurological symptoms. Objective - Vital Signs Vital signs: Vital Signs Temp 98.1 F 11/06/19 07:56 Pulse 90 11/06/19 07:56 Resp 16 11/06/19 07:56 BP 125/70 11/06/19 07:56 Pulse Ox 100 11/06/19 07:56 Intake & Output 11/05/19 11/06/19 11/06/19 18:59 06:59 18:59 Intake Total 458 200 545 Balance 458 200 545 Intake: Oral 458 200 545 Other: Voiding Method Toilet # Voids 1 1 - Exam Patient is alert and awake, sitting in the bed. Speech and language functions are normal. No nystagmus. Visual coello full. Face symmetric. Muscle strength is normal. No ataxia for [id number] or dcvp-ny-gbmt testing. Gait normal. - Labs CBC & Chem 7: 11/04/19 01:34 11/04/19 01:34 Labs: Abnormal Lab Results - Last 24 Hours (Table) 11/05/19 11/05/19 11/06/19 Range/Units 16:35 16:53 06:42 POC Glucose (mg/dL) 62 L 62 L 68 L (75-99) mg/dL Assessment and Plan Assessment: * New onset vertigo of 7 days' duration since he suffered from a fall with syncope from low blood pressure. Patient's symptoms are suggestive of possible peripheral vestibular dysfunction. Doubt central cause. Some component of orthostasis. * Stage IV colon cancer, on chemotherapy. * Diabetes Plan: * Patient's orthostatics showed; laying down 127/75, pulse rate 91; sitting 122/69 with pulse of 94; standing 110/65 with pulse of 116. Patient has mild orthostasis. If symptoms of orthostasis persist, may increase the dose of midodrine. * Continue Antivert 25 mg every 8 hours as needed vertigo. * If symptoms persist, suggest ENT evaluation to evaluate for VNG/ENG to evaluate for peripheral vestibular dysfunction. * Patient had a negative MRI on 10/03/2019. Current computed tomography scan of the head and neurological examination is normal. * Neurologically clear otherwise.
[2019-11-06 14:49] VITALS: RESP 18
[2019-11-06 16:29] LABS: Glucose,Whole Blood 80 mg/dL (75-99)
[2019-11-06 20:04] LABS: Glucose,Whole Blood 78 mg/dL (75-99)
[2019-11-06] MEDS: ATORVASTATIN 20 MG TAB PO SCH (20:17)
[2019-11-06] MEDS: GABAPENTIN 300 MG CAP PO SCH (20:18)
--- NOTE | 2019-11-06 23:37 | PN ---
PROGRESS NOTE A white male who is in for dizziness, near syncope. He has only had very few doses of midodrine today, no meclizine. His sugars have been in the 70 to 90s. VITAL SIGNS: Temperature 98.5, blood pressure 108 to 122 over 68 to 71, pulse 70s to 80s. CARDIOVASCULAR: S1, S2. LUNGS: Clear. GI: Soft. HEMATOLOGY: Negative Homans. ASSESSMENT: 1. Orthostatic hypotension. 2. Dehydration. 3. Metastatic colon cancer. No neurologic symptoms today. Labs are reviewed. Possible peripheral vascular dysfunction. Go home and take Antivert p.r.n. tomorrow. Orthostatic hypotension, a fall. If blood pressure has been stable, he will be able to go home tomorrow on midodrine. Continue Antivert every 8 hours. Plus VNG/ENG as an outpatient to work up his dizziness. MMSARAHL / IKEN: [id number] /
[2019-11-07 06:22] LABS: Anisocytosis Slight; Basophils # (A) 0.1 k/uL (0-0.2); Basophils % (A) 0 %; Eosinophils # (A) 0.1 k/uL (0-0.7); Eosinophils % (A) 0 %; HCT 35.9 % (39.0-53.0); HGB 11.1 gm/dL (13.0-17.5); Hypochromasia Slight; Lymphocytes # (A) 0.7 k/uL (1.0-4.8); Lymphocytes % (A) 3 %; MCHC 30.8 g/dL (31.0-37.0); MCV 77.8 fL (80.0-100.0); Mean Platelet Volume 6.6; Microcytosis Slight; Monocytes # (A) 0.9 k/uL (0-1.0); Monocytes % (A) 4 %; Neutrophils # (A) 19.2 k/uL (1.3-7.7); Neutrophils % (A) 91 %; Platelet Count 360 k/uL (150-450); Poikilocytosis Slight; RBC 4.61 m/uL (4.30-5.90); WBC 21.2 k/uL (3.8-10.6)
[2019-11-07 06:33] LABS: ALT 14 U/L (4-49); AST 36 U/L (17-59); African American GFR (CKD) >90 (>60 ml/min/1.73 sqM); Albumin 2.2 g/dL (3.5-5.0); Alkaline Phosphatase 217 U/L (38-126); Anion Gap 4 mmol/L; Blood Urea Nitrogen 8 mg/dL (9-20); Calcium 8.6 mg/dL (8.4-10.2); Carbon Dioxide 25 mmol/L (22-30); Chloride 105 mmol/L (98-107); Glucose 54 mg/dL (74-99); Magnesium 1.8 mg/dL (1.6-2.3); Non-African American GFR(CKD) >90 (>60 ml/min/1.73 sqM); Potassium 3.4 mmol/L (3.5-5.1); Sodium 134 mmol/L (137-145); Total Bilirubin 0.3 mg/dL (0.2-1.3); Total Protein 4.6 g/dL (6.3-8.2)
[2019-11-07] MEDS: ONDANSETRON 4 MG/2 ML VIAL IVP SCH ×2 (06:52→12:03)
[2019-11-07] MEDS: HYDROcodone/APAP 10-325MG 1 EACH TAB PO PRN ×2 (06:54→15:49)
[2019-11-07 06:59] LABS: Glucose,Whole Blood 72 mg/dL (75-99)
[2019-11-07] MEDS: metFORMIN 850 MG TAB PO SCH ×2 (08:15→12:07)
[2019-11-07] MEDS: INSULIN DETEMIR (LEVEMIR) 100 UNIT/ML SYR SQ SCH (08:15)
[2019-11-07] MEDS: POTASSIUM CHLORIDE ER 20 MEQ TAB.ER PO SCH (08:24)
[2019-11-07] MEDS: PANTOPRAZOLE 40 MG TABLET PO SCH (08:24)
[2019-11-07] MEDS: levETIRAcetam 500 MG TAB PO SCH (08:24)
[2019-11-07] MEDS: atenoloL 25 MG TAB PO SCH ×2 (08:24→08:29)
[2019-11-07] MEDS: DULoxetine HCL 60 MG CAPSULE.DR PO SCH (08:24)
[2019-11-07] MEDS: LORATADINE 10 MG TAB PO SCH (08:24)
[2019-11-07] MEDS: MULTIVITAMINS, THERA 1 EACH TAB PO SCH (08:24)
[2019-11-07] MEDS: CHOLESTYRAMINE (WITH SUGAR) 4 GM PACKET PO SCH ×2 (08:25→12:06)
[2019-11-07] MEDS: MIDODRINE 5 MG TAB PO SCH ×2 (08:25→12:07)
[2019-11-07 08:32] VITALS: TEMP 98.3
[2019-11-07 11:59] LABS: Glucose,Whole Blood 145 mg/dL (75-99)
[2019-11-07] MEDS: CAPECITABINE PO SCH (12:07)
[2019-11-07 15:09] VITALS: BP 108/60; PULSE 88
--- NOTE | 2019-11-07 16:33 | DS ---
DISCHARGE SUMMARY DISCHARGE MEDICINES: 1. Tenormin 25 mg daily. 2. Lipitor 20 mg daily. 3. Questran 4 [QAMARKER q.i.d. p.r.n. 4. Cymbalta 120 mg daily. 5. Neurontin 300 mg at night. 6. [place] 10 every 6 hours p.r.n. for pain. 7. Levemir 50 units daily. 8. Keppra 500 mg b.i.d. 9. Imodium 2 mg q.i.d. 10.Claritin 10 mg daily. 11.Antivert p.r.n. 25 mg if he gets dizzy. Metformin will be discontinued due to GI upset. 1. ProAmatine 2.5 mg before meals t.i.d. 2. Xeloda 2500 mg p.o. as directed. 3. Protonix 40 mg daily. 4. K-Dur 20 mEq daily. CONDITION: Stable. PROGNOSIS: Guarded. Ambulate as tolerated. The patient came in with dizziness, dehydration, progressive vomiting. He was seen by a GI doctor, who ordered some GI medications. As mentioned, Glucophage was stopped due to GI upset and diarrhea and vomiting. The patient improved while in the hospital with fluids. Dizziness improved. Orthostatic changes improved. Midodrine was continued. Fluid rehydration. Metformin was discontinued. Stable for discharge home. He was not using Antivert in the last 24-48 hours prior to discharge, but may need Antivert p.r.n. for inner ear vertigo and may possibly need workup with an ENG or CARLYN test as an outpatient with ENT. Continue get chemo per Oncology. MMODL / IJN: [id number] /
[2019-11-07 17:14] LABS: Glucose,Whole Blood 118 mg/dL (75-99)
== END 2019-11-07 17:44 | disposition home or self-care (01) ==
LOC: EC 23:08 → 1SOBS 11-04 01:27
PROVIDERS: ADMIT Family Medicine; ATTEND Family Medicine
DX: R42 Dizziness and giddiness (principal); E86.0 Dehydration; E87.1 Hypo-osmolality and hyponatremia; E78.5 Hyperlipidemia, unspecified; E87.6 Hypokalemia; F12.90 Cannabis use, unspecified, uncomplicated; F17.210 Nicotine dependence, cigarettes, uncomplicated; F25.9 Schizoaffective disorder, unspecified; F31.30 Bipolar disorder, current episode depressed, mild or moderate severity, unspecified; G40.909 Epilepsy, unspecified, not intractable, without status epilepticus; E11.40 Type 2 diabetes mellitus with diabetic neuropathy, unspecified; I10 Essential (primary) hypertension; I95.1 Orthostatic hypotension; H26.9 Unspecified cataract; C19 Malignant neoplasm of rectosigmoid junction; C79.9 Secondary malignant neoplasm of unspecified site; K52.9 Noninfective gastroenteritis and colitis, unspecified; W18.30XA Fall on same level, unspecified, initial encounter; Z79.4 Long term (current) use of insulin; Z79.899 Other long term (current) drug therapy; Z82.49 Family history of ischemic heart disease and other diseases of the circulatory system; Z91.013 Allergy to seafood; Z88.8 Allergy status to other drugs, medicaments and biological substances; Z03.818 Encounter for observation for suspected exposure to other biological agents ruled out
CPT/HCPCS: 96375 ×2; 96376 ×3; 96361; 96374; 99285; 93005; 83880; 80053 ×2; 82550; 83605; 83735 ×2; 84100; 84484; 85025 ×2; 85610; 85730; 81003; 71046; 70450; G0378 ×4; U0003; J1200; J3360; J2405 ×3; C9113 ×2

== ENCOUNTER 2019-11-08 17:30 | Inpatient (IN) | payer MEDICARE, OTHER ==
[2019-11-08] MEDS ORDERED: METOCLOPRAMIDE 5 MG/ML 2 ML VIAL IVP STA (18:29)
[2019-11-08] MEDS ORDERED: MIDAZOLAM 1 MG/ML 5 ML VIAL IV STA (18:34)
--- NOTE | 2019-11-08 18:34 | ED ---
General Adult HPI - General Chief complaint: Dizziness Stated complaint: Dizziness Time Seen by Provider: 11/08/19 18:23 Source: patient Mode of arrival: ambulatory Limitations: no limitations - History of Present Illness Initial comments: Dictation was produced using [employer] dictation software. please excuse any grammatical, word or spelling errors. This patient was cared for during a federal and state declared state of emergency secondary to Covid 19 Chief Complaint: 44 old male past medical history of colon cancer and recent admission to the hospital presents with down pain, dizziness and nausea History of Present Illness: Is a 44-year-old male. He states that he was just admitted to the hospital and discharged just last night. Reports she is back because he does not feel any improvement of his symptoms. Patient states he was admitted to the hospital for nausea, dizziness. Did not have any episodes of vomiting since yesterday. Less than me anything was last night. He had some macaroni and cheese. She denies any fever, chills or constitutional symptoms. He does complain of diffuse abdominal tenderness. Patient is poor historian and is uncooperative. The ROS documented in this emergency department record has been reviewed and confirmed by me. Those systems with pertinent positive or negative responses h ave been documented in the HPI. All other systems are other negative and/or noncontributory. PHYSICAL EXAM: General Impression: Alert and oriented x3, not in acute distress HEENT: Normocephalic atraumatic, extra-ocular movements intact, pupils equal and reactive to light bilaterally, mucous membranes moist. Cardiovascular: Heart regular rate and rhythm Chest: Able to complete full sentences, no retractions, no tachypnea Abdomen: abdomen soft, non-tender, non-distended, no organomegaly Musculoskeletal: Pulses present and equal in all extremities, no peripheral edema Motor: no focal deficits noted Neurological: CN II-XII grossly intact, no focal motor or sensory deficits noted Skin: Intact with no visualized rashes Psych: Normal affect and mood ED course: 44-year-old male presents with dizziness, diffuse abdominal pain. Vital signs upon arrival are within acceptable limits. Chart review shows that patient was just admitted to the hospital on the of the last month. He was evaluated for vertigo. Evaluated by neurology and oncology. Neurology evaluation and assessment was for peripheral vertigo. Laboratory evaluation obtained. Patient leukocytosis of 22.7. Previous lab reviewed and patient has history of waxing and waning white counts. Hemoglobin stable at 11.6. Coag panel is unremarkable. Metabolic panel is positive for blood gas shows 2.5. There is a non-gap acidosis. Abdominal x-ray shows no acute processes. Patient reevaluated bedside he is resting comfortably and watching TV. It has sort comorbidities however he does appear well. Patient given 1 dose of Valium for persistent dizziness. Considered patient's comorbidities patient be admitted with observation admission. Dr. Fam requests that patient not be given any narcotic medications. GI and neurology will be consulted. EKG interpretation: Ventricular rate 1:15, sinus tachycardia,. Interval 140, QRS 86, QTC 445. No WA prolongation, no QTC prolongation, no ST or T-wave changes noted. - Related Data Home Medications Medication Instructions Recorded Confirmed Atorvastatin Calcium [Lipitor] 20 mg PO HS 09/14/16 11/08/19 atenoloL [Atenolol] 25 mg PO DAILY 07/04/18 11/08/19 Multivitamins, Thera [Multivitamin 1 tab PO DAILY 01/09/19 11/08/19 (formulary)] levETIRAcetam [Keppra] 500 mg PO BID 10/22/19 11/08/19 Capecitabine [Xeloda] 2,500 mg PO DIRECTED 10/28/19 11/08/19 HYDROcodone/APAP 10-325MG [Unity 1 tab PO Q4H PRN 11/08/19 11/08/19 10-325] metFORMIN HCL See Protocol PO AC-TID PRN 11/08/19 11/08/19 Previous Rx's Medication Instructions Recorded Gabapentin [Neurontin] 300 mg PO HS #30 cap 10/03/19 DULoxetine HCL [Cymbalta] 120 mg PO DAILY #60 cap 10/18/19 Midodrine [ProAmatine] 2.5 mg PO AC-TID #30 tab 10/28/19 Meclizine [Antivert] 25 mg PO TID PRN 10 Days #30 tab 11/02/19 Loperamide [Imodium] 2 mg PO QID PRN cap 11/07/19 Loratadine [Claritin] 10 mg PO DAILY tab 11/07/19 Pantoprazole [Protonix] 40 mg PO AC-BID tablet. 11/07/19 Potassium Chloride ER [K-Dur 20] 20 meq PO DAILY tab.er.prt 11/07/19 Allergies Allergy/AdvReac Type Severity Reaction Status Date / Time carbamazepine [From Tegretol] Allergy Severe Anaphylaxis Verified 11/08/19 19:33 lithium [Rockwell] Allergy Severe Anaphylaxis Verified 11/08/19 19:33 shellfish derived Allergy Severe Anaphylaxis Verified 11/08/19 19:33 aspartame Allergy SWELLING Verified 11/08/19 19:33 OF THROAT citalopram hydrobromide AdvReac Intermediate Nausea & Verified 11/08/19 19:33 [From Celexa] Vomiting Review of Systems ROS Statement: Those systems with pertinent positive or pertinent negative responses have been documented in the HPI. ROS Other: All systems not noted in ROS Statement are negative. Past Medical History Past Medical History: Cancer, Diabetes Mellitus, Eye Disorder, Hyperlipidemia, Hypertension, Seizure Disorder, Supraventricular Tachycardia (SVT), Syncope Additional Past Medical History / Comment(s): Pt recently admitted to [facility] on 09/17/19 with intractable nausea/vomitting and pain associated with cancer. Other hx: 06/2018 colon cancer with lymph node involvement with chemotherapy last 3-4 weeks ago and had radiation tx to lymph node, NIDDM type II, neuropathy bilateral hands and feet, falls, chronic generalized pain, R eye decreased vision-pt things d/t cataract, sepsis d/t ruptured appendix, iron anemia, History of Any Multi-Drug Resistant Organisms: None Reported Past Surgical History: Appendectomy, Bowel Resection, Hernia Repair, Orthopedic Surgery, Tonsillectomy Additional Past Surgical History / Comment(s): 08/11/18 cervical lymph node bx, exploratory laparotomy/appy and R colectomy, umbilical hernia repair, UVPPP, R knee arthroscopy, port a caths-currently L chest. Past Anesthesia/Blood Transfusion Reactions: Motion Sickness Past Psychological History: Bipolar, Depression, Schizoaffective Disorder, Schizophrenia Smoking Status: Former smoker Past Alcohol Use History: None Reported Past Drug Use History: Marijuana - Past Family History Father Family Medical History: Liver Disease Additional Family Medical History / Comment(s): Father had ETOH abuse. He from cirrhosis. Mother Family Medical History: Congestive Heart Failure (CHF), Pulmonary Embolus Additional Family Medical History / Comment(s): Mother from CHF General Exam Limitations: no limitations Course Vital Signs 11/08/19 11/08/19 17:33 19:14 Temperature 98.2 F Pulse Rate 109 H 112 H Respiratory 18 18 Rate Blood Pressure 142/87 120/87 O2 Sat by Pulse 100 100 Oximetry Medical Decision Making - Lab Data Result diagrams: 11/08/19 18:49 11/08/19 18:49 Lab Results 11/08/19 11/08/19 11/08/19 Range/Units 18:49 18:49 18:49 WBC 22.7 H (3.8-10.6) k/uL RBC 4.68 (4.30-5.90) m/uL Hgb 11.6 L (13.0-17.5) gm/dL Hct 35.3 L (39.0-53.0) % MCV 75.5 L (80.0-100.0) fL MCH 24.7 L (25.0-35.0) pg MCHC 32.8 (31.0-37.0) g/dL RDW 17.8 H (11.5-15.5) % Plt Count 420 (150-450) k/uL Neutrophils % 89 % Lymphocytes % 5 % Monocytes % 5 % Eosinophils % 1 % Basophils % 0 % Neutrophils # 20.2 H (1.3-7.7) k/uL Lymphocytes # 1.0 (1.0-4.8) k/uL Monocytes # 1.1 H (0-1.0) k/uL Eosinophils # 0.2 (0-0.7) k/uL Basophils # 0.0 (0-0.2) k/uL Poikilocytosis Slight Anisocytosis Slight Microcytosis Slight PT 11.4 (9.0-12.0) sec INR 1.1 (<1.2) APTT 27.3 (22.0-30.0) sec Sodium 132 L (137-145) mmol/L Potassium 3.9 (3.5-5.1) mmol/L Chloride 102 (98-107) mmol/L Carbon Dioxide 21 L (22-30) mmol/L Anion Gap 9 mmol/L BUN 9 (9-20) mg/dL Creatinine 0.53 L (0.66-1.25) mg/dL Est GFR (CKD-EPI)AfAm >90 (>60 ml/min/1.73 sqM) Est GFR (CKD-EPI)NonAf >90 (>60 ml/min/1.73 sqM) Glucose 99 (74-99) mg/dL Plasma Lactic Acid Chay (0.7-2.0) mmol/L Calcium 8.9 (8.4-10.2) mg/dL Magnesium 1.6 (1.6-2.3) mg/dL Total Bilirubin 0.6 (0.2-1.3) mg/dL AST 40 (17-59) U/L ALT 17 (4-49) U/L Alkaline Phosphatase 303 H (38-126) U/L Total Protein 5.1 L (6.3-8.2) g/dL Albumin 2.5 L (3.5-5.0) g/dL 11/08/19 Range/Units 18:49 WBC (3.8-10.6) k/uL RBC (4.30-5.90) m/uL Hgb (13.0-17.5) gm/dL Hct (39.0-53.0) % MCV (80.0-100.0) fL MCH (25.0-35.0) pg MCHC (31.0-37.0) g/dL RDW (11.5-15.5) % Plt Count (150-450) k/uL Neutrophils % % Lymphocytes % % Monocytes % % Eosinophils % % Basophils % % Neutrophils # (1.3-7.7) k/uL Lymphocytes # (1.0-4.8) k/uL Monocytes # (0-1.0) k/uL Eosinophils # (0-0.7) k/uL Basophils # (0-0.2) k/uL Poikilocytosis Anisocytosis Microcytosis PT (9.0-12.0) sec INR (<1.2) APTT (22.0-30.0) sec Sodium (137-145) mmol/L Potassium (3.5-5.1) mmol/L Chloride (98-107) mmol/L Carbon Dioxide (22-30) mmol/L Anion Gap mmol/L BUN (9-20) mg/dL Creatinine (0.66-1.25) mg/dL Est GFR (CKD-EPI)AfAm (>60 ml/min/1.73 sqM) Est GFR (CKD-EPI)NonAf (>60 ml/min/1.73 sqM) Glucose (74-99) mg/dL Plasma Lactic Acid Chay 2.5 H* (0.7-2.0) mmol/L Calcium (8.4-10.2) mg/dL Magnesium (1.6-2.3) mg/dL Total Bilirubin (0.2-1.3) mg/dL AST (17-59) U/L ALT (4-49) U/L Alkaline Phosphatase (38-126) U/L Total Protein (6.3-8.2) g/dL Albumin (3.5-5.0) g/dL Disposition Clinical Impression: Dizziness Disposition: ADMITTED IP TO THIS HOSP Condition: Fair Referrals: David Fam MD [Primary Care Provider] - 1-2 days Decision Time: 19:51
[2019-11-08] MEDS ORDERED: DIAZEPAM 5 MG/ML 2 ML INJ IVP STA (18:56)
[2019-11-08 19:19] LABS: Anisocytosis Slight; Basophils % (A) 0 %; Eosinophils # (A) 0.2 k/uL (0-0.7); Eosinophils % (A) 1 %; HCT 35.3 % (39.0-53.0); HGB 11.6 gm/dL (13.0-17.5); Lymphocytes % (A) 5 %; MCH 24.7 pg (25.0-35.0); MCHC 32.8 g/dL (31.0-37.0); MCV 75.5 fL (80.0-100.0); Microcytosis Slight; Monocytes # (A) 1.1 k/uL (0-1.0); Monocytes % (A) 5 %; Neutrophils # (A) 20.2 k/uL (1.3-7.7); Neutrophils % (A) 89 %; Platelet Count 420 k/uL (150-450); Poikilocytosis Slight; RBC 4.68 m/uL (4.30-5.90); RDW 17.8 % (11.5-15.5); WBC 22.7 k/uL (3.8-10.6)
[2019-11-08 19:26] LABS: INR 1.1 (<1.2); Partial Thromboplastin Time 27.3 sec (22.0-30.0); Prothrombin Time 11.4 sec (9.0-12.0)
[2019-11-08 19:32] LABS: ALT 17 U/L (4-49); AST 40 U/L (17-59); African American GFR (CKD) >90 (>60 ml/min/1.73 sqM); Albumin 2.5 g/dL (3.5-5.0); Alkaline Phosphatase 303 U/L (38-126); Anion Gap 9 mmol/L; Blood Urea Nitrogen 9 mg/dL (9-20); Calcium 8.9 mg/dL (8.4-10.2); Carbon Dioxide 21 mmol/L (22-30); Chloride 102 mmol/L (98-107); Glucose 99 mg/dL (74-99); Magnesium 1.6 mg/dL (1.6-2.3); Non-African American GFR(CKD) >90 (>60 ml/min/1.73 sqM); Potassium 3.9 mmol/L (3.5-5.1); Sodium 132 mmol/L (137-145); Total Bilirubin 0.6 mg/dL (0.2-1.3); Total Protein 5.1 g/dL (6.3-8.2)
--- NOTE | 2019-11-08 19:36 | XR ---
EXAMINATION TYPE: XR abdomen 1V DATE OF EXAM: 11/08/2019 COMPARISON: 10/02/2019 HISTORY: Weakness abdominal pain TECHNIQUE: 2 views upright FINDINGS: There is no sign of intestinal obstruction or pneumoperitoneum. Fecal pattern is normal. Th ere are no pathologic calcifications over the kidneys. Bony structures appear intact. IMPRESSION: Nonacute abdomen. No change.
[2019-11-08] MEDS ORDERED: NALOXONE 0.4 MG/ML 1 ML VIAL IV PRN (19:46)
[2019-11-08] MEDS ORDERED: SODIUM CHLORIDE 0.9% 1,000 ML IV STA (19:48)
[2019-11-08] MEDS: SODIUM CHLORIDE 0.9% 1,000 ML IV SCH (20:12)
[2019-11-08] MEDS: ACETAMINOPHEN TAB 325 MG TAB PO PRN (21:38)
[2019-11-08 21:43] LABS: Glucose,Whole Blood 108 mg/dL (75-99)
[2019-11-09] MEDS: ACETAMINOPHEN TAB 325 MG TAB PO PRN ×4 (03:03→19:52)
[2019-11-09] MEDS: ONDANSETRON 4 MG/2 ML VIAL IVP PRN ×3 (03:31→19:53)
[2019-11-09] MEDS: SODIUM CHLORIDE 0.9% 1,000 ML IV SCH ×3 (05:07→23:35)
[2019-11-09 06:19] LABS: Glucose,Whole Blood 105 mg/dL (75-99)
[2019-11-09] MEDS ORDERED: MECLIZINE 25 MG TAB PO PRN (08:17)
[2019-11-09] MEDS: CAPECITABINE PO SCH (08:30)
[2019-11-09] MEDS: LORATADINE 10 MG TAB PO SCH (08:32)
[2019-11-09] MEDS: atenoloL 25 MG TAB PO SCH (08:32)
[2019-11-09] MEDS: DULoxetine HCL 60 MG CAPSULE.DR PO SCH (08:32)
[2019-11-09] MEDS: MULTIVITAMINS, THERA 1 EACH TAB PO SCH (08:32)
[2019-11-09] MEDS: POTASSIUM CHLORIDE ER 20 MEQ TAB.ER PO SCH (08:32)
[2019-11-09] MEDS: levETIRAcetam 500 MG TAB PO SCH ×2 (08:32→20:21)
--- NOTE | 2019-11-09 08:37 | XR ---
EXAMINATION TYPE: XR chest 2V DATE OF EXAM: 11/09/2019 HISTORY: cap. REFERENCE: Previous study dated 11/04/2019. FINDINGS: There is some platelike atelectasis at the right lung base. Lungs otherwise clear. Pleural space are clear. There is a left subclavian catheter in place. Its tip is at the junction of the inno minate vein and the IVC. IMPRESSION: PLATELIKE ATELECTASIS, RIGHT LUNG BASE.
--- NOTE | 2019-11-09 10:57 | HP ---
HISTORY AND PHYSICAL 44-year-old white male in the hospital twice in the last week for metastatic colon cancer with some dizziness and nausea post chemo. We gave him Antivert and midodrine for hypotension and dizziness which went well. He was having nausea and dizziness. Last night he said he had some macaroni and cheese and had some diffuse abdominal tenderness. Poor historian and uncooperative. Review of systems otherwise has been negative. PHYSICAL EXAMINATION: Alert and oriented times three. No acute distress. Head normocephalic, atraumatic. CARDIOVASCULAR: S1, S2. Abdomen is soft. Musculoskeletal: Range of motion x4. Neurologic: Cranial nerves are intact. Skin: Warm, dry, intact. Psych: Fair mood and affect. IMPRESSION: 1. Dizziness. 2. Acute abdominal pain. 3. Leukocytosis of unclear etiology for that. 4. Possible peripheral vertigo. We will do a chest x-ray to rule out pneumonia. Get Dr. Cyr to see him for leukocytosis. He is given 1 mg of Valium for persistent dizziness. Admitted. EKG ventricular rate good. Home medications are reordered. ASSESSMENT: 1. Vertigo. 2. Acute abdominal pain. Get surgery and GI to seem him and Neurology. Possibly ENT for altered peripheral vestibular and unsure why he has elevated white count and neutrophil count. We will check a UA and chest x-ray. MMODL / IJN: [id number] /
--- NOTE | 2019-11-09 11:01 | US ---
EXAMINATION TYPE: US abdomen complete DATE OF EXAM: 11/09/2019 COMPARISON: Previous study dated 10/02/2019. CLINICAL HISTORY: abdominal pain/emesis. Pain, h/o colon CA with known mets EXAM MEASUREMENTS: Liver Length: 23.2 cm Gallbladder Wall: 0.3 cm CBD: 0.5 cm Spleen: 11.9 cm Right Kidney: 13.5 x 5.1 x 5.2 cm Left Kidney: 11.8 x 6.0 x 6.6 cm Pancreas: Obscured by bowel gas Liver: Enlarged, very difficult to visualize lesions seen on CT, a vague, hypoechoic lesion was visu alized at inferior right lobe= 3.6 x 3.2 x 3.6 cm Gallbladder: wnl Evidence for sonographic Briggs's sign: No CBD: wnl Spleen: wnl Right Kidney: wnl Left Kidney: wnl, lower pole gassed out Upper IVC: wnl Abd Aorta: Proximal portion gassed out/ mid and distal portions appeared wnl Large pt body habitus, difficult to scan Limited views of the pancreas are unremarkable. The liver is enlarged measuring 23 cm. The multiple lesions noted on previous CT and also on previous ultrasound are not well visualized on today's examination. There is at least one lesion visualized i n the right lobe of the liver measuring 3.6 cm. The gallbladder is unremarkable. The gallbladder wall measures 3 mm. This common hepatic duct measure s 5 mm. There is no sonographic Briggs's sign. The spleen is normal in size. Both kidneys are unremarkable. Limited views of the aorta and IVC are unremarkable. IMPRESSION: 1. THIS EXAMINATION FAILS TO DEMONSTRATE THE KNOWN LESIONS FROM PREVIOUS CT AND ONLY 1 LESION WAS SEE N TODAY. 2. NO OTHER ACUTE INTRA-ABDOMINAL ABNORMALITY.
[2019-11-09] MEDS: MIDODRINE 5 MG TAB PO SCH ×2 (11:10→14:53)
[2019-11-09 11:34] LABS: Glucose,Whole Blood 107 mg/dL (75-99)
[2019-11-09 12:26] LABS: Appearance,Urine Cloudy (Clear); Bilirubin,Urine Negative (Negative); Blood,Urine Negative (Negative); Color,Urine Yellow; Glucose,Urine (UA) Negative (Negative); Ketones,Urine Negative (Negative); Leukocyte Esterase,Urine Negative (Negative); Mucus,Urine Occasional /hpf; Nitrite,Urine Negative (Negative); Protein,Urine Negative (Negative); RBC,Urine <1 /hpf (0-5); Specific Gravity,Urine 1.018 (1.001-1.035); WBC,Urine 1 /hpf (0-5)
[2019-11-09] MEDS: PANTOPRAZOLE 40 MG TABLET PO SCH (14:54)
[2019-11-09 16:33] LABS: Glucose,Whole Blood 123 mg/dL (75-99)
[2019-11-09 19:59] LABS: Glucose,Whole Blood 100 mg/dL (75-99)
[2019-11-09] MEDS: LOPERAMIDE 2 MG CAP PO PRN (20:21)
[2019-11-09] MEDS: ATORVASTATIN 20 MG TAB PO SCH (20:21)
[2019-11-09] MEDS: GABAPENTIN 300 MG CAP PO SCH (20:21)
--- NOTE | 2019-11-09 23:15 | P.CONS ---
History of Present Illness - Reason for Consult Consult date: 11/09/19 Leukocytosis Requesting physician: David Fam - Chief Complaint Dizziness and nausea x few days - History of Present Illness Patient is a 44-year-old male with past medical history significant for metastatic colorectal cancer was recently admitted to this facility from November 03 to November 06 patient was treated for dizziness and nausea patient did have a normal white count on his last admission however he did have a white count up to 21,000, the day he was discharged from the hospital, Patient presented back to the hospital with a 24-hour with chief complaints of no improvement in his symptoms patient did have persistent dizziness and nausea and was complaining of some abdominal pain after he did have a dinner of macaroni and cheese patient to denies having any fever or any chills and no fever has been recorded during this hospital stay patient did have elevated white count 22,000 and mildly elevated lactic acid patient also complaining of diarrhea with significant chronic for him however still has some recent worsening with about 4-5 loose stools no purulent mucus in the stools. Complaining of some epigastric discomfort more fidelity and sharp pain with associated nausea and vomiting patient was admitted to the hospital noticed to have white count of 22,000 and that prompted this infectious disease consultation Review of Systems Positive point has been mentioned in the HPI rest of the systems are negative Past Medical History Past Medical History: Cancer, Diabetes Mellitus, Eye Disorder, Hyperlipidemia, Hypertension, Seizure Disorder, Supraventricular Tachycardia (SVT), Syncope Additional Past Medical History / Comment(s): Pt was discharged 11/06/19, came for increased dizziness. Chemo approx. 2 weeks ago. History of Any Multi-Drug Resistant Organisms: None Reported Past Surgical History: Appendectomy, Bowel Resection, Hernia Repair, Orthopedic Surgery, Tonsillectomy Additional Past Surgical History / Comment(s): 08/11/18 cervical lymph node bx, exploratory laparotomy/appy and R colectomy, umbilical hernia repair, UVPPP, R knee arthroscopy, port a caths-currently L chest. Past Anesthesia/Blood Transfusion Reactions: Motion Sickness Past Psychological History: Bipolar, Depression, Schizoaffective Disorder, Schizophrenia Additional Psychological History / Comment(s): No suicidial thoughts. Smoking Status: Former smoker Past Alcohol Use History: None Reported Additional Past Alcohol Use History / Comment(s): Pt started smoking in 1987 and quit in 1992. Past Drug Use History: Marijuana Additional Drug Use History / Comment(s): Occasional Marijuana use. - Past Family History Father Family Medical History: Liver Disease Additional Family Medical History / Comment(s): Father had ETOH abuse. He from cirrhosis. Mother Family Medical History: Congestive Heart Failure (CHF), Pulmonary Embolus Additional Family Medical History / Comment(s): Mother from CHF Medications and Allergies Home Medications Medication Instructions Recorded Confirmed Type Atorvastatin Calcium [Lipitor] 20 mg PO HS 09/14/16 11/08/19 History atenoloL [Atenolol] 25 mg PO DAILY 07/04/18 11/08/19 History Multivitamins, Thera [Multivitamin 1 tab PO DAILY 01/09/19 11/08/19 History (formulary)] Gabapentin [Neurontin] 300 mg PO HS #30 cap 10/03/19 11/08/19 Rx DULoxetine HCL [Cymbalta] 120 mg PO DAILY #60 cap 10/18/19 11/08/19 Rx levETIRAcetam [Keppra] 500 mg PO BID 10/22/19 11/08/19 History Capecitabine [Xeloda] 2,500 mg PO DIRECTED 10/28/19 11/08/19 History Midodrine [ProAmatine] 2.5 mg PO AC-TID #30 tab 10/28/19 11/08/19 Rx Meclizine [Antivert] 25 mg PO TID PRN 10 Days #30 tab 11/02/19 11/08/19 Rx Loperamide [Imodium] 2 mg PO QID PRN cap 11/07/19 11/08/19 Rx Loratadine [Claritin] 10 mg PO DAILY tab 11/07/19 11/08/19 Rx Pantoprazole [Protonix] 40 mg PO AC-BID tablet. 11/07/19 11/08/19 Rx Potassium Chloride ER [K-Dur 20] 20 meq PO DAILY tab.er.prt 11/07/19 11/08/19 Rx HYDROcodone/APAP 10-325MG [[place] 1 tab PO Q4H PRN 11/08/19 11/08/19 History 10-325] metFORMIN HCL See Protocol PO AC-TID PRN 11/08/19 11/08/19 History Allergies Allergy/AdvReac Type Severity Reaction Status Date / Time carbamazepine [From Tegretol] Allergy Severe Anaphylaxis Verified 11/08/19 19:33 lithium [[place]] Allergy Severe Anaphylaxis Verified 11/08/19 19:33 shellfish derived Allergy Severe Anaphylaxis Verified 11/08/19 19:33 aspartame Allergy SWELLING Verified 11/08/19 19:33 OF THROAT citalopram hydrobromide AdvReac Intermediate Nausea & Verified 11/08/19 19:33 [From Celexa] Vomiting Physical Exam Vitals: Vital Signs Temp Pulse Pulse Resp BP BP Pulse Ox 11/09/19 14:53 98.7 F 89 12 127/71 100 11/09/19 07:10 97.7 F 110 H 15 130/77 99 11/09/19 02:23 94 17 11/09/19 02:20 97.7 F 94 17 124/84 100 11/08/19 21:21 97.7 F 98 16 125/70 100 11/08/19 20:47 105 H 16 138/97 98 11/08/19 19:14 112 H 18 120/87 100 Intake and Output 11/09/19 11/09/19 11/09/19 06:59 14:59 22:59 Other: Voiding Method Toilet Toilet # Voids 1 3 # Bowel Movements 1 1 GENERAL DESCRIPTION: Middle-aged male lying in bed, no distress. No tachypnea or accessory muscle of respiration use. HEENT: Shows Pallor , no scleral icterus. Oral mucous membrane is dry. No pharyngeal erythema or thrush NECK: Trachea central, no thyromegaly. LUNGS: Unlabored breathing. Clear to auscultation anteriorly. No wheeze or crackle. HEART: S1, S2, regular rate and rhythm. No loud murmur ABDOMEN: Soft, no tenderness , guarding or rigidity, no organomegaly EXTREMITIES: No edema of feet. SKIN: No rash, no masses palpable. NEUROLOGICAL: The patient is awake, alert, oriented x3, mood and affect normal. Results CBC & Chem 7: 11/08/19 18:49 11/08/19 18:49 Labs: Abnormal Lab Results - Last 24 Hours (Table) 11/08/19 11/08/19 11/08/19 Range/Units 18:49 18:49 18:49 WBC 22.7 H (3.8-10.6) k/uL Hgb 11.6 L (13.0-17.5) gm/dL Hct 35.3 L (39.0-53.0) % MCV 75.5 L (80.0-100.0) fL MCH 24.7 L (25.0-35.0) pg RDW 17.8 H (11.5-15.5) % Neutrophils # 20.2 H (1.3-7.7) k/uL Monocytes # 1.1 H (0-1.0) k/uL Sodium 132 L (137-145) mmol/L Carbon Dioxide 21 L (22-30) mmol/L Creatinine 0.53 L (0.66-1.25) mg/dL POC Glucose (mg/dL) (75-99) mg/dL Plasma Lactic Acid Chay 2.5 H* (0.7-2.0) mmol/L Alkaline Phosphatase 303 H (38-126) U/L Total Protein 5.1 L (6.3-8.2) g/dL Albumin 2.5 L (3.5-5.0) g/dL Urine Mucus (None) /hpf 11/08/19 11/09/19 11/09/19 Range/Units 21:41 06:17 11:00 WBC (3.8-10.6) k/uL Hgb (13.0-17.5) gm/dL Hct (39.0-53.0) % MCV (80.0-100.0) fL MCH (25.0-35.0) pg RDW (11.5-15.5) % Neutrophils # (1.3-7.7) k/uL Monocytes # (0-1.0) k/uL Sodium (137-145) mmol/L Carbon Dioxide (22-30) mmol/L Creatinine (0.66-1.25) mg/dL POC Glucose (mg/dL) 108 H 105 H (75-99) mg/dL Plasma Lactic Acid Chay (0.7-2.0) mmol/L Alkaline Phosphatase (38-126) U/L Total Protein (6.3-8.2) g/dL Albumin (3.5-5.0) g/dL Urine Mucus Occasional H (None) /hpf 11/09/19 11/09/19 Range/Units 11:32 16:31 WBC (3.8-10.6) k/uL Hgb (13.0-17.5) gm/dL Hct (39.0-53.0) % MCV (80.0-100.0) fL MCH (25.0-35.0) pg RDW (11.5-15.5) % Neutrophils # (1.3-7.7) k/uL Monocytes # (0-1.0) k/uL Sodium (137-145) mmol/L Carbon Dioxide (22-30) mmol/L Creatinine (0.66-1.25) mg/dL POC Glucose (mg/dL) 107 H 123 H (75-99) mg/dL Plasma Lactic Acid Chay (0.7-2.0) mmol/L Alkaline Phosphatase (38-126) U/L Total Protein (6.3-8.2) g/dL Albumin (3.5-5.0) g/dL Urine Mucus (None) /hpf Assessment and Plan Assessment: 1- patient with elevated white count in this patient who did have history of metastatic colorectal cancer with recent admission Hospital for nausea and dizziness patient did have a normal white count on presentation however did have a white count of 21,000 on the day of discharge and subsequently the admission Hospital with a 24-hour now with a white count of 22,000, however the patient did not have any fever that developed toxic initial workup so far chest x-ray and UA has been negativen ultrasound of the abdominal did no show any acute abnormality, patient may symptom remains to be diarrhea and will need further workup to rule out infectious diarrhea and is obviously history patient hasn't received any Neulasta which may have contributed to elevated white count (1) Leukocytosis Current Visit: Yes Status: Acute Code(s): D72.829 - ELEVATED WHITE BLOOD CELL COUNT, UNSPECIFIED SNOMED Code(s): 384574721 (2) Diarrhea Current Visit: No Status: Chronic Priority: High Code(s): R19.7 - DIARRHEA, UNSPECIFIED SNOMED Code(s): 22033241 Plan: 1- we will check a stool for C. diff and stool culture 2-hold on any systemic antibiotic therapy as no obvious focus of infection 3-gentle IV fluid and symptomatic treatment of his diarrhea 4- repeat CBC CMP and BMP in the morning We will follow on clinical condition and cultures to further adjust medication if needed Thank you for this consultation will follow this patient with you Time with Patient: Greater than 30
--- NOTE | 2019-11-10 01:30 | CONS ---
CONSULTATION DATE OF DICTATION: 11/09/2019 REASON FOR CONSULTATION: Nausea. HISTORY OF PRESENT ILLNESS: The patient is a 44-year-old pleasant white male with history of the metastatic colon cancer presently chemotherapy, admitted to the hospital with nausea and dizziness. The patient states that he is undergoing chemotherapy and sees Dr. Whalen. and the last one was 2 weeks ago. He became severely nauseated and he had episodes of emesis once or twice a week. Also, complains of severe dizziness. He complains of some epigastric discomfort, symptoms are worse with eating. We are consulted for management of the nausea. The patient is put on Zofran 8 mg three times daily as needed at home with decent improvement in his symptoms. Occasionally, he does have some emesis. No prior history of peptic ulcer disease or recent NSAID use. PAST MEDICAL HISTORY: Metastatic colon cancer diagnosed in November of status post colon resection, undergoing chemotherapy. History of hypertension, hyperlipidemia and diabetes mellitus, SVT, seizure disorder, PAST SURGICAL HISTORY: Colon resection, appendectomy, hernia repair, tonsillectomy, cervical lymph node biopsy, exploratory laparotomy. FAMILY HISTORY: Father has EtOH liver disease. Mother has congestive heart failure and pulmonary embolism. MEDICATIONS: Medication at home include Lipitor, atenolol, multivitamin, Keppra, Xeloda, [place], metformin. ALLERGIES: TEGRETOL, LITHIUM, CITALOPRAM. REVIEW OF SYSTEMS: CARDIOPULMONARY: He denies any chest pain or shortness of breath. GENITOURINARY: No dysuria or hematuria. MUSCULOSKELETAL: Unremarkable. SKIN: Unremarkable. ENDOCRINE: Diabetes mellitus. PSYCHIATRY: Unremarkable. ONCOLOGY: As mentioned above. HEMATOLOGY: Mild anemia. CONSTITUTIONAL: Weight loss of 40 pounds in the last 6 months. No fever, chills, night sweats. PHYSICAL EXAMINATION: He appears comfortable in no apparent distress. Vital signs are stable. Blood pressure 133/86, pulse rate 110, temperature 97.7. HEENT EXAMINATION: Unremarkable. Conjunctivae pink. Sclerae anicteric. Oral cavity no lesions. Neck: No JVD or lymph node enlargement. CHEST: Clear to auscultation. HEART: Regular rate and rhythm. ABDOMEN: Soft. Bowel sounds are positive. Mild tenderness in the epigastric area. EXTREMITIES: No pedal edema. SKIN: No rashes. NEUROLOGIC: Alert and oriented x3. No focal deficits. LABS: Labs from today: WBC 22.7, hemoglobin 11.6, platelets 420. MCV 75.5. within normal limits. ALT, AST, T bilirubin normal. Alkaline phosphatase is 303. IMPRESSION: 1. Persistent nausea with occasional emesis on . Patient diagnosed with metastatic colon cancer in November of 2017 and since then has been on different chemo regimen and most likely his symptoms are related to ongoing chemotherapy and maintained on Zofran 8 mg four times daily and he is doing much better. 2. Dizziness, new onset. 3. History of metastatic colon cancer follows with Dr. Whalen, undergoing chemotherapy. 4. History of anxiety, depression. 5. History of hypertension. RECOMMENDATIONS: 1. Continue with Protonix 40 mg daily. 2. Zofran as needed. 3. IV hydration. 4. Symptomatic supportive care. 5. No plans for any endoscopic intervention at the present. 6. Will follow with you closely. Thank you for this consultation. ANA / CESAR: [id number] /
[2019-11-10] MEDS: ACETAMINOPHEN TAB 325 MG TAB PO PRN ×4 (02:58→22:07)
[2019-11-10 06:25] LABS: Glucose,Whole Blood 92 mg/dL (75-99)
[2019-11-10 07:03] LABS: Anisocytosis Slight; Basophils # (A) 0.1 k/uL (0-0.2); Basophils % (A) 0 %; Eosinophils # (A) 0.1 k/uL (0-0.7); Eosinophils % (A) 1 %; HCT 32.7 % (39.0-53.0); HGB 10.5 gm/dL (13.0-17.5); Hypochromasia Marked; Lymphocytes # (A) 0.4 k/uL (1.0-4.8); Lymphocytes % (A) 2 %; MCH 26.2 pg (25.0-35.0); MCHC 32.2 g/dL (31.0-37.0); Mean Platelet Volume 7.7; Monocytes # (A) 1.4 k/uL (0-1.0); Monocytes % (A) 8 %; Neutrophils # (A) 15.2 k/uL (1.3-7.7); Neutrophils % (A) 88 %; Platelet Count 336 k/uL (150-450); RBC 4.02 m/uL (4.30-5.90); WBC 17.4 k/uL (3.8-10.6)
[2019-11-10 07:04] LABS: MCV 81.5 fL (80.0-100.0)
[2019-11-10 07:16] LABS: African American GFR (CKD) >90 (>60 ml/min/1.73 sqM); Anion Gap 5 mmol/L; Blood Urea Nitrogen 5 mg/dL (9-20); C Reactive Protein 80.7 mg/L (<10.0); Carbon Dioxide 22 mmol/L (22-30); Chloride 106 mmol/L (98-107); Glucose 83 mg/dL (74-99); Non-African American GFR(CKD) >90 (>60 ml/min/1.73 sqM); Potassium 3.7 mmol/L (3.5-5.1); Sodium 133 mmol/L (137-145)
[2019-11-10] MEDS: atenoloL 25 MG TAB PO SCH (07:28)
[2019-11-10] MEDS: CAPECITABINE PO SCH (07:29)
[2019-11-10] MEDS: POTASSIUM CHLORIDE ER 20 MEQ TAB.ER PO SCH (07:42)
[2019-11-10] MEDS: MIDODRINE 5 MG TAB PO SCH ×3 (07:43→16:29)
[2019-11-10] MEDS: DULoxetine HCL 60 MG CAPSULE.DR PO SCH (07:43)
[2019-11-10] MEDS: LORATADINE 10 MG TAB PO SCH (07:43)
[2019-11-10] MEDS: levETIRAcetam 500 MG TAB PO SCH ×2 (07:43→22:08)
[2019-11-10] MEDS: MULTIVITAMINS, THERA 1 EACH TAB PO SCH (07:44)
[2019-11-10] MEDS: SODIUM CHLORIDE 0.9% 1,000 ML IV SCH ×2 (07:44→16:30)
[2019-11-10] MEDS: PANTOPRAZOLE 40 MG TABLET PO SCH ×2 (07:44→16:30)
[2019-11-10] MEDS: LOPERAMIDE 2 MG CAP PO PRN (09:01)
[2019-11-10 11:42] LABS: Glucose,Whole Blood 112 mg/dL (75-99)
--- NOTE | 2019-11-10 15:50 | PN ---
PROGRESS NOTE DATE OF SERVICE: 11/10/2019 REASON FOR FOLLOWUP: Leukocytosis and diarrhea. INTERVAL HISTORY: The patient is currently afebrile. The patient is breathing more comfortably. The patient denies having any chest pain or shortness of breath. Abdominal pain has improved. No further vomiting. Diarrhea has slowed down. PHYSICAL EXAMINATION: Blood pressure 116/65 with a pulse of 83, temperature 98.2. He is 99% on room air. General description is a middle-aged male lying in bed in no distress. RESPIRATORY SYSTEM: Unlabored breathing. Clear to auscultation anteriorly. HEART: S1, S2. Regular rate and rhythm. ABDOMEN: Soft. No tenderness. LABS: White count down to 17.4. Stool for C difficile is negative. Stool culture currently pending. Blood culture so far negative. DIAGNOSTIC IMPRESSION AND PLAN: Patient with leukocytosis which is multifactorial in this patient currently predominantly with GI symptoms of diarrhea. Abdomen is soft. No tenderness. White count is trending down with oral antibiotic therapy; to continue. Monitor closely and follow his cultures. MMODL / IJN: [id number] /
[2019-11-10 16:39] LABS: Glucose,Whole Blood 109 mg/dL (75-99)
--- NOTE | 2019-11-10 20:17 | PN ---
PROGRESS NOTE DATE OF DICTATION: 11/10/2019 The patient is a 44-year-old white male admitted to the hospital with severe nausea and dizziness. He is undergoing chemotherapy for metastatic colon cancer diagnosed in September of 2018. He is feeling much better today. He remains on Protonix 40 mg daily, Zofran 4 mg every 8 hours as needed. He denies any abdominal pain. He is on a clear liquid diet, tolerating well. No episodes of emesis. PHYSICAL EXAMINATION: He appears comfortable. No apparent distress. VITAL SIGNS: Stable. Blood pressure is 122/68, pulse rate 93, temperature 98. HEENT examination unremarkable. Conjunctivae pink. Sclerae anicteric. Oral cavity no lesions. NECK: No JVD or lymph node enlargement. CHEST: Clear to auscultation. ABDOMEN: Obese. Bowel sounds are positive. Very minimal tenderness in the epigastric area. EXTREMITIES: No pedal edema. SKIN: No rashes. NEUROLOGIC: Alert and oriented x3. No focal deficits. LABS: Labs from today show WBC 17.4, hemoglobin 10.5, platelets normal. Basic metabolic panel is within normal limits. IMPRESSION: 1. Persistent nausea, probably chemo-related. He remains on Zofran as well as IV Protonix. He is feeling much better today. 2. Metastatic colon cancer diagnosed in September of 2018. 3. Mild leukocytosis. Dr. Cyr is following the patient closely. 4. Dizziness, improving. 5. Diarrhea, resolved. RECOMMENDATIONS: 1. Continue with Protonix 40 mg daily. 2. Continue Zofran as needed. 3. No plans for any endoscopic intervention at the present. 4. Continue symptomatic and supportive care and we will follow with you. Thank you for this consultation. MMODL / IJN: [id number] /
[2019-11-10 21:30] LABS: Glucose,Whole Blood 115 mg/dL (75-99)
[2019-11-10] MEDS: ATORVASTATIN 20 MG TAB PO SCH (22:08)
[2019-11-10] MEDS: GABAPENTIN 300 MG CAP PO SCH (22:08)
--- NOTE | 2019-11-10 23:34 | PN ---
PROGRESS NOTE A 44-year-old white male seen by Dr. Thomas who plans no endoscopy or colonoscopy. Just put him on Protonix, Zofran. Tolerating foods. No emesis. He is being treated for outpatient metastatic colon cancer. He is feeling better today. Blood pressure 122/68, pulse 93, temp 98. CARDIOVASCULAR: S1, S2. LUNGS: Clear. GI: Soft. HEMATOLOGY: Negative Homans. ASSESSMENT: 1. Dizziness. 2. Orthostatic hypotension, chemo related. On Zofran p.r.n. then discharge home tomorrow as he is medically stable. MMODL / IJN: [id number] /
[2019-11-11] MEDS: SODIUM CHLORIDE 0.9% 1,000 ML IV SCH ×2 (02:46→11:20)
[2019-11-11] MEDS: ACETAMINOPHEN TAB 325 MG TAB PO PRN ×4 (03:13→22:39)
[2019-11-11 06:53] LABS: Glucose,Whole Blood 93 mg/dL (75-99)
[2019-11-11] MEDS: CAPECITABINE PO SCH (07:27)
[2019-11-11] MEDS: atenoloL 25 MG TAB PO SCH ×2 (07:28→18:11)
[2019-11-11] MEDS: LOPERAMIDE 2 MG CAP PO PRN (07:37)
[2019-11-11] MEDS: LORATADINE 10 MG TAB PO SCH (07:37)
[2019-11-11] MEDS: DULoxetine HCL 60 MG CAPSULE.DR PO SCH (07:37)
[2019-11-11] MEDS: POTASSIUM CHLORIDE ER 20 MEQ TAB.ER PO SCH (07:38)
[2019-11-11] MEDS: levETIRAcetam 500 MG TAB PO SCH ×2 (07:38→22:39)
[2019-11-11] MEDS: MULTIVITAMINS, THERA 1 EACH TAB PO SCH (07:38)
[2019-11-11] MEDS: MIDODRINE 5 MG TAB PO SCH ×3 (07:38→16:53)
[2019-11-11] MEDS: PANTOPRAZOLE 40 MG TABLET PO SCH ×2 (07:38→16:54)
[2019-11-11] MEDS: SIMETHICONE 80 MG CHEWABLE PO SCH ×3 (11:21→22:39)
[2019-11-11 11:26] LABS: Glucose,Whole Blood 120 mg/dL (75-99)
--- NOTE | 2019-11-11 16:01 | PN ---
PROGRESS NOTE DATE OF SERVICE: 11/11/2019 REASON FOR FOLLOWUP: Leukocytosis and possible gastroenteritis. INTERVAL HISTORY: The patient is currently afebrile, has been feeling better, breathing comfortably. Patient denies having any chest pain, no shortness of breath, no cough. Abdominal pain has improved. No further vomiting. He has been tolerating diet and diarrhea has slowed down. PHYSICAL EXAMINATION: Blood pressure 120/80 with a pulse of 84, temperature is 98, he is 99% on room air. General description is a middle-aged male, lying in bed in no distress. RESPIRATORY SYSTEM: Unlabored breathing, clear to auscultation anteriorly. HEART: S1, S2. Regular rate and rhythm. ABDOMEN: Soft, no tenderness. LABS: No new labs have been obtained today. Stool cultures are pending. Blood culture negative. DIAGNOSTIC IMPRESSION AND PLAN: Patient with leukocytosis which is likely multifactorial with concern for possible leukocytosis versus gastroenteritis. We are waiting for the stool culture to finalize. The patient's white count showing a downward trend. CBC, BMP tomorrow; continue homocystine antibiotic therapy. MMODL / IJN: [id number] /
[2019-11-11 16:58] LABS: Glucose,Whole Blood 111 mg/dL (75-99)
--- NOTE | 2019-11-11 19:46 | PN ---
PROGRESS NOTE This patient is a 44-year-old white male who apparently was up ambulating today and got severely tachycardic, for which Cardiology is trying to be re-contacted. Due to tachycardia with ambulation we will have to increase his [place], possibly get him discharged home tomorrow. He is feeling better as far as his dizziness and lightheadedness are going. Will have to wait for Cardiology to see him tomorrow prior to discharge. Will increase atenolol to 25 b.i.d. Continue current treatments. GI: Soft. CARDIOVASCULAR: S1, S2. Heart rate around 90s. Please see further orders on the chart. MMODL / IJN: [id number] /
--- NOTE | 2019-11-11 19:52 | PN ---
PROGRESS NOTE DATE OF DICTATION: 11/11/2019 Patient is a 44-year-old white male admitted to the hospital with severe nausea and dizziness. He is feeling much better, on a regular diet, tolerating well. No abdominal pain. He has some dizziness today. Overall doing better. PHYSICAL EXAMINATION: Appears comfortable. VITAL SIGNS: Stable. Blood pressure 144/80, pulse rate 114, temperature 98.8. HEENT examination unremarkable. Conjunctivae pink. Sclerae anicteric. NECK: No JVD or lymph node enlargement. CHEST: Clear to auscultation. HEART: Regular rate and rhythm. ABDOMEN: Soft. Bowel sounds are positive. No organomegaly. EXTREMITIES: No pedal edema. NEUROLOGIC: Alert and oriented x3. No focal deficits. LABS: Labs from today not available; from yesterday, WBC 17.4, hemoglobin 10.5, platelets normal. IMPRESSION: 1. Severe nausea, probably chemo-related. Patient doing much better on IV Zofran as well as Protonix. He is on a regular diet, tolerating well. 2. Metastatic colon cancer, undergoing chemotherapy. He follows with Dr. Whalen. 3. Microcytic anemia with stable hemoglobin. No active bleeding. 4. Dizziness, improving. RECOMMENDATIONS: 1. Continue with symptomatic and supportive care. 2. Continue antiemetics as needed. 3. Small frequent meals. 4. Increase ambulation. 5. Will sign off at this time. Please call us if needed. Thank you for this consultation. MMODL / IJN: [id number] /
[2019-11-11 20:57] LABS: Glucose,Whole Blood 131 mg/dL (75-99)
[2019-11-11] MEDS: GABAPENTIN 300 MG CAP PO SCH (22:38)
[2019-11-11] MEDS: ATORVASTATIN 20 MG TAB PO SCH (22:39)
[2019-11-12] MEDS: SODIUM CHLORIDE 0.9% 1,000 ML IV SCH ×3 (01:26→15:18)
[2019-11-12 06:28] LABS: Glucose,Whole Blood 96 mg/dL (75-99)
[2019-11-12] MEDS: DULoxetine HCL 60 MG CAPSULE.DR PO SCH (08:32)
[2019-11-12] MEDS: MULTIVITAMINS, THERA 1 EACH TAB PO SCH (08:32)
[2019-11-12] MEDS: PANTOPRAZOLE 40 MG TABLET PO SCH (08:32)
[2019-11-12] MEDS: atenoloL 25 MG TAB PO SCH (08:32)
[2019-11-12] MEDS: LORATADINE 10 MG TAB PO SCH (08:32)
[2019-11-12] MEDS: levETIRAcetam 500 MG TAB PO SCH (08:32)
[2019-11-12] MEDS: POTASSIUM CHLORIDE ER 20 MEQ TAB.ER PO SCH (08:32)
[2019-11-12] MEDS: SIMETHICONE 80 MG CHEWABLE PO SCH ×2 (08:33→11:50)
[2019-11-12] MEDS: MIDODRINE 5 MG TAB PO SCH ×2 (08:34→11:50)
[2019-11-12] MEDS: CAPECITABINE PO SCH (08:34)
[2019-11-12] MEDS: ACETAMINOPHEN TAB 325 MG TAB PO PRN (08:37)
[2019-11-12 09:11] VITALS: BP 156/84; PULSE 74; RESP 14; TEMP 97.8
[2019-11-12 11:38] LABS: Glucose,Whole Blood 99 mg/dL (75-99)
--- NOTE | 2019-11-12 12:08 | P.CRDCN ---
History of Present Illness History of present illness: HISTORY OF PRESENTING ILLNESS This is a pleasant 44-year-old male past medical history significant for colon cancer with metastases to the liver currently undergoing chemotherapy, hypertension, dyslipidemia and diabetes mellitus. 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 We have been asked to see in consultation for orthostatic hypotension. He is currently undergoing chemotherapy for metastatic colon cancer. We have seen him in consultation earlier this month for similar symptoms. He does have documented orthostatic hypotension and tachycardia secondary to dehydration and chemotherapy. He is taking his prescribed midodrine in the morning, around dinner time and then before bedtime. He states it does help but not completely. He continue to feel dizzy when he changes positions. He has no chest pain, shortness of breath, palpitations or syncope. DIAGNOSTICS EKG reveals sinus tachycardia heart rate of 115 with PVC. Telemetry tracings unremarkable for an acute arrhythmia. Persistent sinus tachycardia. Chest xray on admission negative for an acute cardiopulmonary process. Repeat reveals right base atelectasis. CT of the brain negative for acute intracranial process. Laboratory reviewed, WBC 17.4, hemoglobin 10.5, platelets 336, sodium 133, potassium 3.7, creatinine 0.55. Current cardiac medications include atorvastatin 20 mg at bedtime, midodrine 2.5 mg 3 times a day, atenolol 25 mg daily. REVIEW OF SYSTEMS At the time of my exam: CONSTITUTIONAL: Denies fever or chills. CARDIOVASCULAR: Denies chest pain, shortness of breath, orthopnea, PND or palpitations. RESPIRATORY: Denies cough. GASTROINTESTINAL: Denies abdominal pain, diarrhea, constipation, nausea or vomiting. MUSCULOSKELETAL: Denies myalgias. NEUROLOGIC: Complains of dizziness with position changes. Denies numbness, tingling or weakness. ENDOCRINE: Denies fatigue, weight change, polydipsia or polyurina. GENITOURINARY: Denies burning, hematuria or urgency with micturation. HEMATOLOGIC: Denies history of anemia or bleeding. PHYSICAL EXAMINATION Blood pressure 156/84 heart rate 74 afebrile maintaining oxygen saturation on room air CONSTITUTIONAL: No apparent distress. HEENT: Head is normocephalic. Pupils are equal, round. Sclerae anicteric. Mucous membranes of the mouth are moist. No JVD. No carotid bruit. CHEST EXAMINATION: Lungs are clear to auscultation. No chest wall tenderness is noted on palpation or with deep breathing. HEART EXAMINATION: Regular rate and rhythm. S1, S2 heard. No murmurs, gallops or rub. ABDOMEN: Soft, nontender. Positive bowel sounds. EXTREMITIES: 2+ peripheral pulses, no lower extremity edema and no calf tenderness. NEUROLOGIC EXAMINATION: Patient is awake, alert and oriented x3. ASSESSMENT Orthostatic hypotension Sinus tachycardia Leukocytosis Metastatic colorectal cancer PLAN Midodrine dosing discussed in great detail with the patient. Continue 2.5 mg 3 times a day to be taken 30 minutes before actually getting out of bed in the morning and then every 4-5 hours thereafter for a total of 3 doses. HS dosing should not be done as his dizziness does not occur when he is sleeping. We will follow along as needed. Ongoing medical management. Thank you kindly for this consultation. Nurse Practitioner note has been reviewed, I agree with a documented findings and plan of care. Patient was seen and examined. Past Medical History Past Medical History: Cancer, Diabetes Mellitus, Eye Disorder, Hyperlipidemia, Hypertension, Seizure Disorder, Supraventricular Tachycardia (SVT), Syncope Additional Past Medical History / Comment(s): Pt was discharged 11/06/19, came for increased dizziness. Chemo approx. 2 weeks ago. History of Any Multi-Drug Resistant Organisms: None Reported Past Surgical History: Appendectomy, Bowel Resection, Hernia Repair, Orthopedic Surgery, Tonsillectomy Additional Past Surgical History / Comment(s): 08/11/18 cervical lymph node bx, exploratory laparotomy/appy and R colectomy, umbilical hernia repair, UVPPP, R knee arthroscopy, port a caths-currently L chest. Past Anesthesia/Blood Transfusion Reactions: Motion Sickness Past Psychological History: Bipolar, Depression, Schizoaffective Disorder, Schizophrenia Additional Psychological History / Comment(s): No suicidial thoughts. Smoking Status: Former smoker Past Alcohol Use History: None Reported Additional Past Alcohol Use History / Comment(s): Pt started smoking in 1987 and quit in 1992. Past Drug Use History: Marijuana Additional Drug Use History / Comment(s): Occasional Marijuana use. - Past Family History Father Family Medical History: Liver Disease Additional Family Medical History / Comment(s): Father had ETOH abuse. He from cirrhosis. Mother Family Medical History: Congestive Heart Failure (CHF), Pulmonary Embolus Additional Family Medical History / Comment(s): Mother from CHF Medications and Allergies Home Medications Medication Instructions Recorded Confirmed Type Atorvastatin Calcium [Lipitor] 20 mg PO HS 09/14/16 11/08/19 History atenoloL [Atenolol] 25 mg PO DAILY 07/04/18 11/08/19 History Multivitamins, Thera [Multivitamin 1 tab PO DAILY 01/09/19 11/08/19 History (formulary)] Gabapentin [Neurontin] 300 mg PO HS #30 cap 10/03/19 11/08/19 Rx DULoxetine HCL [Cymbalta] 120 mg PO DAILY #60 cap 10/18/19 11/08/19 Rx levETIRAcetam [Keppra] 500 mg PO BID 10/22/19 11/08/19 History Capecitabine [Xeloda] 2,500 mg PO DIRECTED 10/28/19 11/08/19 History Midodrine [ProAmatine] 2.5 mg PO AC-TID #30 tab 10/28/19 11/08/19 Rx Meclizine [Antivert] 25 mg PO TID PRN 10 Days #30 tab 11/02/19 11/08/19 Rx Loperamide [Imodium] 2 mg PO QID PRN cap 11/07/19 11/08/19 Rx Loratadine [Claritin] 10 mg PO DAILY tab 11/07/19 11/08/19 Rx Pantoprazole [Protonix] 40 mg PO AC-BID tablet. 11/07/19 11/08/19 Rx Potassium Chloride ER [K-Dur 20] 20 meq PO DAILY tab.er.prt 11/07/19 11/08/19 Rx HYDROcodone/APAP 10-325MG [[place] 1 tab PO Q4H PRN 11/08/19 11/08/19 History 10-325] metFORMIN HCL See Protocol PO AC-TID PRN 11/08/19 11/08/19 History Allergies Allergy/AdvReac Type Severity Reaction Status Date / Time carbamazepine [From Tegretol] Allergy Severe Anaphylaxis Verified 11/08/19 19:33 lithium [[place]] Allergy Severe Anaphylaxis Verified 11/08/19 19:33 shellfish derived Allergy Severe Anaphylaxis Verified 11/08/19 19:33 aspartame Allergy SWELLING Verified 11/08/19 19:33 OF THROAT citalopram hydrobromide AdvReac Intermediate Nausea & Verified 11/08/19 19:33 [From Celexa] Vomiting Physical Exam Vitals: Vital Signs Temp Pulse Pulse Pulse Pulse Resp BP 11/12/19 09:00 97.8 F 74 14 11/12/19 03:00 97.5 F L 87 18 11/11/19 21:00 98.7 F 90 110 H 86 18 11/11/19 15:00 98.8 F 114 H 18 144/80 BP BP BP Pulse Ox 11/12/19 09:00 156/84 98 11/12/19 03:00 99/63 100 11/11/19 21:00 128/82 114/73 147/88 99 11/11/19 15:00 99 Intake and Output 11/11/19 11/12/19 11/12/19 22:59 06:59 14:59 Other: Voiding Method Toilet Toilet # Voids 1 1 # Bowel Movements 1 Results 11/10/19 05:36 11/10/19 05:36 Current Medications Generic Name Dose Route Start Last Admin Trade Name Freq PRN Reason Stop Dose Admin Acetaminophen 650 mg 11/08/19 19:46 11/12/19 08:37 Tylenol Tab PO 650 mg Q6HR PRN Administration Mild Pain or Fever > 100.5 Atenolol 25 mg 11/11/19 18:00 11/12/19 08:32 Tenormin PO 25 mg BID BRANDIE Administration Atorvastatin Calcium 20 mg 11/09/19 21:00 11/11/19 22:39 Lipitor PO 20 mg HS BRANDIE Administration Duloxetine HCl 120 mg 11/09/19 09:00 11/12/19 08:32 Cymbalta PO 120 mg DAILY BRANDIE Administration Gabapentin 300 mg 11/09/19 21:00 11/11/19 22:38 Neurontin PO 300 mg HS BRANDIE Administration Sodium Chloride 1,000 mls @ 110 mls/hr 11/08/19 20:00 11/12/19 05:16 Saline 0.9% IV Not Given .Q9H6M BRANDIE Levetiracetam 500 mg 11/09/19 09:00 11/12/19 08:32 Keppra PO 500 mg BID BRANDIE Administration Loperamide HCl 2 mg 11/09/19 08:17 11/11/19 07:37 Imodium PO 2 mg QID PRN Administration Diarrhea Loratadine 10 mg 11/09/19 09:00 11/12/19 08:32 Claritin PO 10 mg DAILY BRANDIE Administration Meclizine HCl 25 mg 11/09/19 08:17 11/11/19 11:20 Antivert PO 25 mg TID PRN Administration Vertigo Midodrine 2.5 mg 11/09/19 12:30 11/12/19 11:50 Proamatine PO 2.5 mg AC-TID BRANDIE Administration Multivitamins 1 each 11/09/19 09:00 11/12/19 08:32 Theragran PO 1 each DAILY BRANDIE Administration Naloxone HCl 0.2 mg 11/08/19 19:46 Narcan IV Q2M PRN Opioid Reversal Non-Formulary Medication 2,500 mg 11/09/19 08:30 11/12/19 08:34 Capecitabine [Xeloda] PO Not Given DIRECTED BRANDIE Ondansetron HCl 4 mg 11/08/19 19:46 11/09/19 19:53 Zofran IVP 4 mg Q8HR PRN Administration Nausea And Vomiting Pantoprazole Sodium 40 mg 11/09/19 17:30 11/12/19 08:32 Protonix PO 40 mg AC-BID BRANDIE Administration Potassium Chloride 20 meq 11/09/19 09:00 11/12/19 08:32 K-Dur 20 PO 20 meq DAILY BRANDIE Administration Simethicone 40 mg 11/11/19 13:00 11/12/19 11:50 Mylicon Chew PO 40 mg QID BRANDIE Administration Intake and Output 11/11/19 11/12/19 11/12/19 22:59 06:59 14:59 Other: Voiding Method Toilet Toilet # Voids 1 1 # Bowel Movements 1 11/10/19 05:36 11/10/19 05:36
[2019-11-12 13:00] LABS: Anisocytosis Slight; Basophils # (A) 0.1 k/uL (0-0.2); Basophils % (A) 1 %; Eosinophils # (A) 0.3 k/uL (0-0.7); Eosinophils % (A) 1 %; HCT 39.5 % (39.0-53.0); HGB 11.9 gm/dL (13.0-17.5); Hypochromasia Marked; Lymphocytes # (A) 0.8 k/uL (1.0-4.8); Lymphocytes % (A) 3 %; MCH 24.5 pg (25.0-35.0); MCV 81.7 fL (80.0-100.0); Mean Platelet Volume 6.3; Monocytes # (A) 1.2 k/uL (0-1.0); Monocytes % (A) 5 %; Neutrophils # (A) 20.7 k/uL (1.3-7.7); Neutrophils % (A) 89 %; Platelet Count 409 k/uL (150-450); RBC 4.84 m/uL (4.30-5.90); RDW 17.8 % (11.5-15.5); WBC 23.3 k/uL (3.8-10.6)
--- NOTE | 2019-11-12 13:03 | PN ---
PROGRESS NOTE DATE OF SERVICE: 11/12/2019 REASON FOR FOLLOWUP: Leukocytosis and diarrhea. INTERVAL HISTORY: Patient is currently afebrile, has been breathing comfortably. Patient denies having any chest pain. No shortness of breath or cough. Abdominal pain has improved and the patient's diarrhea has slowed down and not as runny as it was. PHYSICAL EXAMINATION: His vital signs stable, T-max of 98. General description is a middle-aged male, lying in bed in no distress. RESPIRATORY SYSTEM: Unlabored breathing, clear to auscultation anteriorly. HEART: S1, S2. Regular rate and rhythm. ABDOMEN: Soft, no tenderness. LABS: No new labs have been obtained today. DIAGNOSTIC IMPRESSION AND PLAN: Patient with leukocytosis, possible multifactorial, did have GI symptoms so far, cultures are negative. We will repeat a CBC, CRP. Continue with symptomatic treatment. No need for systemic antibiotic. MMODL / IJN: [id number] /
== END 2019-11-12 15:38 | disposition home or self-care (01) | DRG 312 ==
LOC: EC 17:30 → 1SOBS 19:46 → OBSVTOIN 11-12 10:23
PROVIDERS: ADMIT Family Medicine; ATTEND Family Medicine
DX: I95.2 Hypotension due to drugs (principal); C19 Malignant neoplasm of rectosigmoid junction; C78.7 Secondary malignant neoplasm of liver and intrahepatic bile duct; E87.2 Acidosis; J98.11 Atelectasis; T45.1X5A Adverse effect of antineoplastic and immunosuppressive drugs, initial encounter; D50.9 Iron deficiency anemia, unspecified; D72.829 Elevated white blood cell count, unspecified; E11.9 Type 2 diabetes mellitus without complications; E78.5 Hyperlipidemia, unspecified; E86.0 Dehydration; F25.9 Schizoaffective disorder, unspecified; G40.909 Epilepsy, unspecified, not intractable, without status epilepticus; H54.7 Unspecified visual loss; H81.399 Other peripheral vertigo, unspecified ear; I10 Essential (primary) hypertension; I49.3 Ventricular premature depolarization; R11.2 Nausea with vomiting, unspecified; Z79.899 Other long term (current) drug therapy; Z82.49 Family history of ischemic heart disease and other diseases of the circulatory system; Z87.891 Personal history of nicotine dependence; Z90.49 Acquired absence of other specified parts of digestive tract; Z90.89 Acquired absence of other organs; Z11.59 Encounter for screening for other viral diseases; Z81.1 Family history of alcohol abuse and dependence; Z88.8 Allergy status to other drugs, medicaments and biological substances; Z91.013 Allergy to seafood; R19.7 Diarrhea, unspecified; Z83.2 Family history of diseases of the blood and blood-forming organs and certain disorders involving the immune mechanism; F41.9 Anxiety disorder, unspecified; F32.9 Major depressive disorder, single episode, unspecified
CPT/HCPCS: 36415; 71046; 74018; 76700; 80048; 80053; 81001; 83605; 83735; 85025; 85610; 85730; 86140; 87040; 87045; 87046; 87324; 93005; 96361; 96374; 96375; 99285

== ENCOUNTER 2019-11-16 15:55 | Emergency (ER) | payer MEDICARE, OTHER ==
[2019-11-16] MEDS ORDERED: MORPHINE SULFATE 4 MG/ML SYRINGE IVP STA (16:14)
[2019-11-16] MEDS ORDERED: SODIUM CHLORIDE 0.9% 500 ML 500 ML IV STA (16:14)
--- NOTE | 2019-11-16 16:23 | ED ---
Fall HPI - General Chief Complaint: Fall Stated Complaint: Fall Time Seen by Provider: 11/16/19 16:01 Source: EMS Mode of arrival: EMS - History of Present Illness Initial Comments: Patient is a 44-year-old male, currently undergoing treatment for colon cancer, presenting to the emergency department after he slipped and fell at home. Patient states he has been lightheaded for a few weeks now, was recently admitted to the hospital for this. Patient states he is taking Antivert which is helping his dizziness. Patient states today he feels like he slipped on the tile floor in his bedroom and fell mostly onto his left side. He is complaining of some mild left shoulder pain but more significant left hip pain. He denies any history of surgeries to these areas. He states he did hit his head slightly on his dresser when he fell. He does not have a headache, there is no loss of consciousness, no nausea or vomiting. He denies any abdominal pain. He states he is not on blood thinners. He has no further complaints at this time. - Related Data Home Medications Medication Instructions Recorded Confirmed Atorvastatin Calcium [Lipitor] 20 mg PO HS 09/14/16 11/08/19 Multivitamins, Thera [Multivitamin 1 tab PO DAILY 01/09/19 11/08/19 (formulary)] levETIRAcetam [Keppra] 500 mg PO BID 10/22/19 11/08/19 Capecitabine [Xeloda] 2,500 mg PO DIRECTED 10/28/19 11/08/19 HYDROcodone/APAP 10-325MG [[place] 1 tab PO Q4H PRN 11/08/19 11/08/19 10-325] metFORMIN HCL See Protocol PO AC-TID PRN 11/08/19 11/08/19 Previous Rx's Medication Instructions Recorded Gabapentin [Neurontin] 300 mg PO HS #30 cap 10/03/19 DULoxetine HCL [Cymbalta] 120 mg PO DAILY #60 cap 10/18/19 Midodrine [ProAmatine] 2.5 mg PO AC-TID #30 tab 10/28/19 Meclizine [Antivert] 25 mg PO TID PRN 10 Days #30 tab 11/02/19 Loperamide [Imodium] 2 mg PO QID PRN cap 11/07/19 Loratadine [Claritin] 10 mg PO DAILY tab 11/07/19 Pantoprazole [Protonix] 40 mg PO AC-BID tablet. 11/07/19 Potassium Chloride ER [K-Dur 20] 20 meq PO DAILY tab.er.prt 11/07/19 atenoloL [Tenormin] 25 mg PO BID tab 11/12/19 Allergies Allergy/AdvReac Type Severity Reaction Status Date / Time carbamazepine [From Tegretol] Allergy Severe Anaphylaxis Verified 11/08/19 19:33 lithium [[place]] Allergy Severe Anaphylaxis Verified 11/08/19 19:33 shellfish derived Allergy Severe Anaphylaxis Verified 11/08/19 19:33 aspartame Allergy SWELLING Verified 11/08/19 19:33 OF THROAT citalopram hydrobromide AdvReac Intermediate Nausea & Verified 11/08/19 19:33 [From Celexa] Vomiting Review of Systems ROS Statement: Those systems with pertinent positive or pertinent negative responses have been documented in the HPI. ROS Other: All systems not noted in ROS Statement are negative. Past Medical History Past Medical History: Cancer, Diabetes Mellitus, Eye Disorder, Hyperlipidemia, Hypertension, Seizure Disorder, Supraventricular Tachycardia (SVT), Syncope Additional Past Medical History / Comment(s): Pt was discharged 11/06/19, came for increased dizziness. Chemo approx. 2 weeks ago. History of Any Multi-Drug Resistant Organisms: None Reported Past Surgical History: Appendectomy, Bowel Resection, Hernia Repair, Orthopedic Surgery, Tonsillectomy Additional Past Surgical History / Comment(s): 08/11/18 cervical lymph node bx, exploratory laparotomy/appy and R colectomy, umbilical hernia repair, UVPPP, R knee arthroscopy, port a caths-currently L chest. Past Anesthesia/Blood Transfusion Reactions: Motion Sickness Past Psychological History: Bipolar, Depression, Schizoaffective Disorder, Schizophrenia Smoking Status: Former smoker Past Alcohol Use History: None Reported Past Drug Use History: Marijuana - Past Family History Father Family Medical History: Liver Disease Additional Family Medical History / Comment(s): Father had ETOH abuse. He from cirrhosis. Mother Family Medical History: Congestive Heart Failure (CHF), Pulmonary Embolus Additional Family Medical History / Comment(s): Mother from CHF General Exam - General Exam Comments Initial Comments: GENERAL: Patient is nontoxic and in no acute distress. HEAD: Atraumatic, normocephalic. Very mild scratch to the left side of the forehead. There are no hematomas, no signs of basal skull fracture. EYES: Pupils equal round and reactive to light, extraocular movements intact, sclera anicteric, conjunctiva are normal. Eyelids were unremarkable. ENT: TMs normal, nares patent, oropharynx clear without exudates. Moist mucous membranes. NECK: Normal range of motion, supple without lymphadenopathy or JVD. LUNGS: Unlabored respirations. Breath sounds clear to auscultation bilaterally and equal. No wheezes rales or rhonchi. HEART: Regular rate and rhythm without murmurs, rubs or gallops. ABDOMEN: Soft, nontender, normoactive bowel sounds. No guarding, no rebound. No masses appreciated. : Deferred MUSCULOSKELETAL: Patient has pain with palpation of the left hip, pain with internal and external range of motion. He is neurovascular intact. He has some mild pain with palpation of the left shoulder but does have full range of motion. No clubbing or cyanosis. NEUROLOGICAL: Patient is alert and oriented x 3. Motor and sensory are also intact. Cranial nerves II through XII grossly intact. Symmetrical smile. Normal speech. Patient is able to ambulate. PSYCH: Normal mood, normal affect. SKIN: Warm, Dry, normal turgor, no rashes or lesions noted. Limitations: no limitations Course Vital Signs 11/16/19 11/16/19 11/16/19 16:01 17:37 18:03 Temperature 99.3 F 99.9 F H 98.6 F Pulse Rate 94 105 H 106 H Respiratory 19 16 19 Rate Blood Pressure 105/67 122/73 106/80 O2 Sat by Pulse 99 98 98 Oximetry 11/16/19 18:21 Temperature Pulse Rate 102 H Respiratory 18 Rate Blood Pressure 114/83 O2 Sat by Pulse 98 Oximetry Medical Decision Making - Medical Decision Making Patient is a 44-year-old male here after he slipped and fell, mostly complaining of left hip pain. Patient has been recently admitted to hospital for dizziness, is currently on Antivert which is helping his symptoms. His vital signs are stable upon arrival. X-rays reveal no acute fractures of the left hip. He is able to ambulate. I discussed with patient this is most likely contusion to his hip, recommended ice the area, Tylenol and Motrin for the discomfort. He has a follow-up with his doctor next week. He is in agreement with this plan of care. He is stable for discharge. Return parameters were discussed with the patient he verbalizes understanding. Case discussed with Dr. Cabral. Of note, nurse reported a temperature of 99.9 in his chart. Temperature was rechecked vanessa roximately 15 minutes later and revealed a normal temperature. I feel like this was documented in error, patient has been afebrile during ER stay. - EKG Data EKG Comments: Normal sinus rhythm, normal ECG. Ventricular rate 93, P arrival 146, QT 382. Disposition Clinical Impression: Fall, Left hip pain, Contusion of left hip Disposition: HOME SELF-CARE Condition: Stable Instructions (If sedation given, give patient instructions): Hip Contusion (ED) Additional Instructions: Please return to the Emergency Department if symptoms worsen or any other concerns. Recommend ice to the area, Tylenol and/or Motrin for discomfort. Follow-up with PCP. Is patient prescribed a controlled substance at d/c from ED?: No Referrals: David Fam MD [Primary Care Provider] - 1-2 days
[2019-11-16] MEDS ORDERED: MORPHINE SULFATE 4 MG/ML SYRINGE IM STA (17:03)
--- NOTE | 2019-11-16 17:27 | XR ---
EXAMINATION TYPE: XR Hip Complete LT DATE OF EXAM: 11/16/2019 COMPARISON: NONE HISTORY: Left hip pain TECHNIQUE: 2 views FINDINGS: There is no fracture nor dislocation. Hip joint space is fairly normal. Sacroiliac joint is intact. Proximal femurs are intact. IMPRESSION: Negative left hip exam.
[2019-11-16 18:04] VITALS: TEMP 98.6
[2019-11-16 18:24] VITALS: BP 114/83; PULSE 102; RESP 18
== END 2019-11-16 18:24 | disposition home or self-care (01) ==
LOC: EC 15:55
DX: S70.02XA Contusion of left hip, initial encounter (principal); R42 Dizziness and giddiness; M25.512 Pain in left shoulder; E11.9 Type 2 diabetes mellitus without complications; E78.5 Hyperlipidemia, unspecified; I10 Essential (primary) hypertension; G40.909 Epilepsy, unspecified, not intractable, without status epilepticus; Z79.84 Long term (current) use of oral hypoglycemic drugs; Z79.899 Other long term (current) drug therapy; Z87.891 Personal history of nicotine dependence; Z88.8 Allergy status to other drugs, medicaments and biological substances; Z91.048 Other nonmedicinal substance allergy status; Z91.013 Allergy to seafood; Z92.21 Personal history of antineoplastic chemotherapy; Z85.038 Personal history of other malignant neoplasm of large intestine; Z90.49 Acquired absence of other specified parts of digestive tract; W01.10XA Fall on same level from slipping, tripping and stumbling with subsequent striking against unspecified object, initial encounter; Y93.89 Activity, other specified; Y92.003 Bedroom of unspecified non-institutional (private) residence as the place of occurrence of the external cause
CPT/HCPCS: 93005; 73502; 99284; 96372; J2270

== ENCOUNTER 2019-12-01 18:44 | Emergency (ER) | payer MEDICARE, OTHER ==
[2019-12-01 18:52] VITALS: RESP 18; TEMP 98.1
[2019-12-01] MEDS ORDERED: SODIUM CHLORIDE 0.9% 500 ML 500 ML IV ONE (19:13)
[2019-12-01] MEDS ORDERED: SODIUM CHLORIDE 0.9% 1,000 ML IV ONE (19:13)
[2019-12-01] MEDS ORDERED: HYDROmorphone 0.5 MG/0.5 ML SYRINGE IVP STA ×2 (19:14→21:28)
[2019-12-01] MEDS ORDERED: METOCLOPRAMIDE 5 MG/ML 2 ML VIAL IVP STA (19:14)
[2019-12-01] MEDS ORDERED: SODIUM CHLORIDE 0.9% 1,000 ML IV SCH (19:15)
--- NOTE | 2019-12-01 19:36 | ED ---
Nausea/Vomiting/Diarrhea HPI - General Chief complaint: Nausea/Vomiting/Diarrhea Stated complaint: nausea and vomiting Time Seen by Provider: 12/01/19 19:00 Source: patient Mode of arrival: wheelchair Limitations: no limitations - History of Present Illness Initial comments: 44-year-old male with history of colon cancer with metastasis to the stomach kristi er and lymph nodes, DM, HTN, HLD, SVT, seizure disorder presenting today for chief complaint of nausea and vomiting since 10 PM last night. Patient states he's had nausea and vomiting since 10 PM last night he states he's also had on and off nosebleeds he denies any bleeding currently. Patient denies any chest pain shortness of breath he states his last chemotherapy regimen was one month ago but he states he is no longer going to go through with chemotherapy and is scheduled for radiation within the next month. Patient states that he goes between diarrhea and constipation he states he's been constant for the past 2 days. Patient denies any upper respiratory symptoms or fevers. Patient states he does not follow GI however does have oncologist Dr. Whalen. Patient denies dark stools, bloody stools. Patient denies headaches. Patient states he has all over chronic abdominal pain, but denies any acute changes. Patient states he has been frequently hospitalized due to the nausea and vomiting/dehydration. Patient has no additional complaints. On arrival he appears nontoxic in no acute distress. He is not currently actively vomiting. Oral temperature was recorded personally 98.7F. I did not feel patient was warm to palpation as stated in triage. - Related Data Home Medications Medication Instructions Recorded Confirmed Multivitamins, Thera [Multivitamin 1 tab PO DAILY 01/09/19 12/01/19 (formulary)] levETIRAcetam [Keppra] 500 mg PO BID 10/22/19 12/01/19 Cholestyramine (with Sugar) 4 gm PO QID PRN 11/22/19 12/01/19 [Cholestyramine Packet] DULoxetine HCL [Cymbalta] 120 mg PO HS 11/22/19 12/01/19 Ondansetron HCl [Zofran] 8 mg PO BID PRN 11/22/19 12/01/19 Pyridoxine HCl (Vitamin B6) 100 mg PO BID 11/22/19 12/01/19 [Vitamin B-6] atenoloL [Tenormin] 25 mg PO DAILY 11/22/19 12/01/19 Previous Rx's Medication Instructions Recorded Meclizine [Antivert] 25 mg PO TID PRN 10 Days #30 tab 11/02/19 Midodrine [ProAmatine] 10 mg PO AC-TID 30 Days #90 tab 11/29/19 Gabapentin [Neurontin] 300 mg PO HS #30 cap 11/30/19 HYDROcodone/APAP 10-325MG [[place] 1 tab PO Q4HR PRN 7 Days #40 tab 11/30/19 10-325] predniSONE [Deltasone] 20 mg PO DAILY #30 tab 11/30/19 Allergies Allergy/AdvReac Type Severity Reaction Status Date / Time carbamazepine [From Tegretol] Allergy Severe Anaphylaxis Verified 12/01/19 19:45 lithium [[place]] Allergy Severe Anaphylaxis Verified 12/01/19 19:45 shellfish derived Allergy Severe Anaphylaxis Verified 12/01/19 19:45 aspartame Allergy SWELLING Verified 12/01/19 19:45 OF THROAT citalopram hydrobromide AdvReac Intermediate Nausea & Verified 12/01/19 19:45 [From Celexa] Vomiting Review of Systems ROS Statement: Those systems with pertinent positive or pertinent negative responses have been documented in the HPI. ROS Other: All systems not noted in ROS Statement are negative. Past Medical History Past Medical History: Cancer, Diabetes Mellitus, Eye Disorder, Hyperlipidemia, Hypertension, Seizure Disorder, Supraventricular Tachycardia (SVT), Syncope Additional Past Medical History / Comment(s): colon cancer with mets Pt was discharged 11/06/19, came for increased dizziness. Chemo one month ago History of Any Multi-Drug Resistant Organisms: None Reported Past Surgical History: Appendectomy, Bowel Resection, Hernia Repair, Orthopedic Surgery, Tonsillectomy Additional Past Surgical History / Comment(s): 08/11/18 cervical lymph node bx, exploratory laparotomy/appy and R colectomy, umbilical hernia repair, UVPPP, R knee arthroscopy, port a caths-currently L chest. Past Anesthesia/Blood Transfusion Reactions: Motion Sickness Past Psychological History: Bipolar, Depression, Schizoaffective Disorder, Schizophrenia Smoking Status: Former smoker Past Alcohol Use History: None Reported Past Drug Use History: Marijuana - Past Family History Father Family Medical History: Liver Disease Additional Family Medical History / Comment(s): Father had ETOH abuse. He from cirrhosis. Mother Family Medical History: Congestive Heart Failure (CHF), Pulmonary Embolus Additional Family Medical History / Comment(s): Mother from CHF General Exam Limitations: no limitations Course Vital Signs 12/01/19 12/01/19 18:46 21:16 Temperature 98.1 F Pulse Rate 130 H 83 Respiratory 18 18 Rate Blood Pressure 106/78 120/70 O2 Sat by Pulse 98 100 Oximetry Medical Decision Making - Medical Decision Making 44 year old male just discharged yesterday from an inpatient stay for nausea vomiting history of gastric metastasis from a primary colon cancer. Patient states his symptoms are chronic and identical to when he is previously admitted. Patient slept her studies reveal findings consistent with previous values. Improvement of patient's chronic leukocytosis. Patient's heart rate normalized after pain medications and fluids. patient BP stable, discussed case at length with attending Dr. Cabral who spoke with patient primary provider together they decided patient is stable for discharge with f/u in primary office. Patient tolerated PO challenge, no vomiting throughout stay in ER. Patient pain medications recently filled per Dr. Cabral who spoke with Dr. Fam. Patient discharged appearing well. Recommending repeat CMP in 1-2 days to monitor sodium. - Lab Data Result diagrams: 12/01/19 19:20 12/01/19 19:20 Lab Results 12/01/19 12/01/19 12/01/19 Range/Units 19:20 19:20 19:20 WBC 18.2 H (3.8-10.6) k/uL RBC 4.20 L (4.30-5.90) m/uL Hgb 9.7 L (13.0-17.5) gm/dL Hct 31.7 L (39.0-53.0) % MCV 75.3 L (80.0-100.0) fL MCH 23.1 L (25.0-35.0) pg MCHC 30.6 L (31.0-37.0) g/dL RDW 18.0 H (11.5-15.5) % Plt Count 745 H (150-450) k/uL Neutrophils % 86 % Lymphocytes % 3 % Monocytes % 9 % Eosinophils % 1 % Basophils % 0 % Neutrophils # 15.6 H (1.3-7.7) k/uL Lymphocytes # 0.5 L (1.0-4.8) k/uL Monocytes # 1.7 H (0-1.0) k/uL Eosinophils # 0.2 (0-0.7) k/uL Basophils # 0.0 (0-0.2) k/uL Hypochromasia Slight Anisocytosis Slight Microcytosis Moderate Sodium 130 L (137-145) mmol/L Potassium 3.9 (3.5-5.1) mmol/L Chloride 94 L (98-107) mmol/L Carbon Dioxide 26 (22-30) mmol/L Anion Gap 10 mmol/L BUN 12 (9-20) mg/dL Creatinine 0.44 L (0.66-1.25) mg/dL Est GFR (CKD-EPI)AfAm >90 (>60 ml/min/1.73 sqM) Est GFR (CKD-EPI)NonAf >90 (>60 ml/min/1.73 sqM) Glucose 193 H (74-99) mg/dL Calcium 8.9 (8.4-10.2) mg/dL Total Bilirubin 0.5 (0.2-1.3) mg/dL AST 45 (17-59) U/L ALT 39 (4-49) U/L Alkaline Phosphatase 420 H (38-126) U/L Troponin I <0.012 (0.000-0.034) ng/mL Total Protein 5.3 L (6.3-8.2) g/dL Albumin 2.6 L (3.5-5.0) g/dL Lipase 103 (23-300) U/L Disposition Clinical Impression: Nausea and vomiting, Chronic pain, Chronic nausea Disposition: HOME SELF-CARE Condition: Stable Additional Instructions: Please use medication as discussed. Please follow-up with family doctor tomorrow in office. Please return to emergency room if the symptoms increase or worsen or for any other concerns. Is patient prescribed a controlled substance at d/c from ED?: No Referrals: David Fam MD [Primary Care Provider] - 1-2 days Time of Disposition: 21:05
[2019-12-01 20:39] LABS: Anisocytosis Slight; Basophils % (A) 0 %; Eosinophils # (A) 0.2 k/uL (0-0.7); Eosinophils % (A) 1 %; HCT 31.7 % (39.0-53.0); HGB 9.7 gm/dL (13.0-17.5); Hypochromasia Slight; Lymphocytes # (A) 0.5 k/uL (1.0-4.8); Lymphocytes % (A) 3 %; MCH 23.1 pg (25.0-35.0); MCHC 30.6 g/dL (31.0-37.0); MCV 75.3 fL (80.0-100.0); Mean Platelet Volume 6.5; Microcytosis Moderate; Monocytes # (A) 1.7 k/uL (0-1.0); Monocytes % (A) 9 %; Neutrophils # (A) 15.6 k/uL (1.3-7.7); Neutrophils % (A) 86 %; Platelet Count 745 k/uL (150-450); WBC 18.2 k/uL (3.8-10.6)
--- NOTE | 2019-12-01 20:48 | XR ---
EXAMINATION TYPE: XR abdomen acute w cxr DATE OF EXAM: 12/01/2019 COMPARISON: Chest radiograph 11/09/2019. Abdominal radiograph 11/08/2019. HISTORY: Nausea and vomiting. History of colon cancer with metastases. TECHNIQUE: Frontal view of the chest obtained. Supine and upright views of the abdomen are obtained. FINDINGS: Chest radiograph demonstrates left-sided MediPort with distal tip over the left brachiocephalic vein. Cardiac size normal. No focal air space opacity, pleural effusion, or pneumothorax. Left basilar sub segmental atelectasis. There is no evidence for pneumoperitoneum. The bowel gas pattern is nonspecific. No evidence of air-f luid levels. Surgical shawna of the mid abdomen. No unusual calcifications. Osseous structures are i ntact. IMPRESSION: 1. No acute cardiopulmonary process. 2. Nonspecific bowel gas pattern.
[2019-12-01 20:49] LABS: ALT 39 U/L (4-49); AST 45 U/L (17-59); African American GFR (CKD) >90 (>60 ml/min/1.73 sqM); Albumin 2.6 g/dL (3.5-5.0); Alkaline Phosphatase 420 U/L (38-126); Anion Gap 10 mmol/L; Blood Urea Nitrogen 12 mg/dL (9-20); Calcium 8.9 mg/dL (8.4-10.2); Carbon Dioxide 26 mmol/L (22-30); Chloride 94 mmol/L (98-107); Glucose 193 mg/dL (74-99); Non-African American GFR(CKD) >90 (>60 ml/min/1.73 sqM); Potassium 3.9 mmol/L (3.5-5.1); Sodium 130 mmol/L (137-145); Total Bilirubin 0.5 mg/dL (0.2-1.3); Total Protein 5.3 g/dL (6.3-8.2)
[2019-12-01] MEDS ORDERED: HYDROmorphone 1 MG/ML 1 ML SYRINGE IVP STA (21:05)
[2019-12-01 21:17] VITALS: BP 120/70; PULSE 83
== END 2019-12-01 22:02 | disposition home or self-care (01) ==
LOC: EC 18:44
DX: R11.2 Nausea with vomiting, unspecified (principal); R10.9 Unspecified abdominal pain; G89.29 Other chronic pain; F31.9 Bipolar disorder, unspecified; G40.909 Epilepsy, unspecified, not intractable, without status epilepticus; C78.89 Secondary malignant neoplasm of other digestive organs; Z85.038 Personal history of other malignant neoplasm of large intestine; Z87.891 Personal history of nicotine dependence; Z79.899 Other long term (current) drug therapy; Z91.013 Allergy to seafood; Z88.8 Allergy status to other drugs, medicaments and biological substances
CPT/HCPCS: 99284; 96374; 96375 ×2; 96376; 96361 ×2; 36415; 93005; 80053; 83690; 84484; 85025; 74022; J2765; J1642; J1170 ×2

== ENCOUNTER 2019-12-26 16:25 | Emergency (ER) | payer MEDICARE, OTHER ==
[2019-12-26] MEDS ORDERED: levETIRAcetam IV 1,000 MG in SALINE 1 100ML.BAG IVPB STA (17:05)
[2019-12-26] MEDS ORDERED: HYDROmorphone 1 MG/ML 1 ML SYRINGE IVP STA (17:09)
[2019-12-26] MEDS ORDERED: SODIUM CHLORIDE 0.9% 1,000 ML IV STA (17:09)
--- NOTE | 2019-12-26 17:12 | ED ---
General Adult HPI - General Chief complaint: Weakness Stated complaint: Seizures, right sided weakness Time Seen by Provider: 12/26/19 17:01 Source: patient Mode of arrival: wheelchair Limitations: no limitations - History of Present Illness Initial comments: Dictation was produced using [employer] dictation software. please excuse any grammatical, word or spelling errors. This patient was cared for during a federal and state declared state of [facility] secondary to Covid 19 Chief Complaint: 44-year-old male past medical history of colon cancer, metastatic lesions in hospice care presents with migraine and concerns of seizure-like activity today. History of Present Illness: 44-year-old male he is well-known to emergency department. Patient is here at least once a week. 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 He presents today with couple hours of migraine headaches. Patient has a history of migraines. States his headache is typical of his usual headaches. Patient also has history of seizures. Does have intracranial lesions that were evaluated recently. Patient states he doesn't recall what happened today his home health care nurse was concerned that patient had seizures today. Patient reports that he is compliant with his Keppra. Denies any fever, chills or night sweats. The ROS documented in this emergency department record has been reviewed and confirmed by me. Those systems with pertinent positive or negative responses have been documented in the HPI. All other systems are other negative and/or noncontributory. PHYSICAL EXAM: General Impression: Alert and oriented x3, not in acute distress HEENT: Normocephalic atraumatic, extra-ocular movements intact, pupils equal and reactive to light bilaterally, mucous membranes moist, no lateral tongue avulsion Cardiovascular: Heart regular rate and rhythm Chest: Able to complete full sentences, no retractions, no tachypnea Abdomen: abdomen soft, non-tender, non-distended, no organomegaly Musculoskeletal: Pulses present and equal in all extremities, no peripheral edema Motor: no focal deficits noted Neurological: CN II-XII grossly intact, no focal motor or sensory deficits noted, no hyperreflexia Skin: Intact with no visualized rashes Psych: Normal affect and mood ED course: 44-year-old male who is well-known to emergency Department reports for migraine headache and concerns of seizure-like activity. Patient does take Keppra and he reports that his complaint was medications. Vital signs upon arrival shows heart rate of 129, rest of vital signs within acceptable limits. Patient appears to be in his usual state of health. I did evaluate this patient on several occasions prior to today. Seems to be at baseline. Laboratory evaluation obtained. Patient's CBC, coag panel. Be baseline. Patient reevaluated bedside with stable medical condition. Patient was loaded with Keppra given Dilaudid for his pain. He reports significant improvement in his condition. Patient be discharged. EKG interpretation: Ventricular rate 116, sinus tachycardia,. Interval 140, QRS 94, QTC 464. No NH prolongation, no QTC prolongation, no ST or T-wave changes noted. EKG compared to 12/01/2019 showing no changes. Overall, this EKG is unremarkable - Related Data Home Medications Medication Instructions Recorded Confirmed Multivitamins, Thera [Multivitamin 1 tab PO DAILY 01/09/19 12/01/19 (formulary)] levETIRAcetam [Keppra] 500 mg PO BID 10/22/19 12/01/19 Cholestyramine (with Sugar) 4 gm PO QID PRN 11/22/19 12/01/19 [Cholestyramine Packet] DULoxetine HCL [Cymbalta] 120 mg PO HS 11/22/19 12/01/19 Ondansetron HCl [Zofran] 8 mg PO BID PRN 11/22/19 12/01/19 Pyridoxine HCl (Vitamin B6) 100 mg PO BID 11/22/19 12/01/19 [Vitamin B-6] atenoloL [Tenormin] 25 mg PO DAILY 11/22/19 12/01/19 Previous Rx's Medication Instructions Recorded Meclizine [Antivert] 25 mg PO TID PRN 10 Days #30 tab 11/02/19 Midodrine [ProAmatine] 10 mg PO AC-TID 30 Days #90 tab 11/29/19 Gabapentin [Neurontin] 300 mg PO HS #30 cap 11/30/19 HYDROcodone/APAP 10-325MG [[place] 1 tab PO Q4HR PRN 7 Days #40 tab 11/30/19 10-325] predniSONE [Deltasone] 20 mg PO DAILY #30 tab 11/30/19 Allergies Allergy/AdvReac Type Severity Reaction Status Date / Time carbamazepine [From Tegretol] Allergy Severe Anaphylaxis Verified 12/26/19 16:36 lithium [[place]] Allergy Severe Anaphylaxis Verified 12/26/19 16:36 shellfish derived Allergy Severe Anaphylaxis Verified 12/26/19 16:36 aspartame Allergy SWELLING Verified 12/26/19 16:36 OF THROAT citalopram hydrobromide AdvReac Intermediate Nausea & Verified 12/26/19 16:36 [From Celexa] Vomiting Review of Systems ROS Statement: Those systems with pertinent positive or pertinent negative responses have been documented in the HPI. ROS Other: All systems not noted in ROS Statement are negative. Past Medical History Past Medical History: Cancer, Diabetes Mellitus, Eye Disorder, Hyperlipidemia, Hypertension, Seizure Disorder, Supraventricular Tachycardia (SVT), Syncope Additional Past Medical History / Comment(s): colon cancer with mets Pt was discharged 11/06/19, came for increased dizziness. Chemo one month ago History of Any Multi-Drug Resistant Organisms: None Reported Past Surgical History: Appendectomy, Bowel Resection, Hernia Repair, Orthopedic Surgery, Tonsillectomy Additional Past Surgical History / Comment(s): 08/11/18 cervical lymph node bx, exploratory laparotomy/appy and R colectomy, umbilical hernia repair, UVPPP, R knee arthroscopy, port a caths-currently L chest. Past Anesthesia/Blood Transfusion Reactions: Motion Sickness Past Psychological History: Bipolar, Depression, Schizoaffective Disorder, Schizophrenia Smoking Status: Former smoker Past Alcohol Use History: None Reported Past Drug Use History: Marijuana - Past Family History Father Family Medical History: Liver Disease Additional Family Medical History / Comment(s): Father had ETOH abuse. He from cirrhosis. Mother Family Medical History: Congestive Heart Failure (CHF), Pulmonary Embolus Additional Family Medical History / Comment(s): Mother from CHF General Exam Limitations: no limitations Course Vital Signs 12/26/19 12/26/19 16:36 17:45 Temperature 97.7 F Pulse Rate 129 H 116 H Respiratory 22 20 Rate Blood Pressure 113/74 O2 Sat by Pulse 100 97 Oximetry Medical Decision Making - Lab Data Result diagrams: 12/26/19 17:25 12/26/19 17:25 Lab Results 12/26/19 12/26/19 12/26/19 Range/Units 17:25 17:25 17:25 WBC 15.2 H (3.8-10.6) k/uL RBC 4.28 L (4.30-5.90) m/uL Hgb 9.5 L (13.0-17.5) gm/dL Hct 31.5 L (39.0-53.0) % MCV 73.5 L (80.0-100.0) fL MCH 22.2 L (25.0-35.0) pg MCHC 30.2 L (31.0-37.0) g/dL RDW 16.8 H (11.5-15.5) % Plt Count 502 H (150-450) k/uL Neutrophils % 88 % Lymphocytes % 4 % Monocytes % 6 % Eosinophils % 1 % Basophils % 0 % Neutrophils # 13.3 H (1.3-7.7) k/uL Lymphocytes # 0.6 L (1.0-4.8) k/uL Monocytes # 0.9 (0-1.0) k/uL Eosinophils # 0.2 (0-0.7) k/uL Basophils # 0.0 (0-0.2) k/uL Hypochromasia Moderate Anisocytosis Slight Microcytosis Moderate PT 12.8 H (9.0-12.0) sec INR 1.3 H (<1.2) APTT 22.7 (22.0-30.0) sec Sodium 134 L (137-145) mmol/L Potassium 3.5 (3.5-5.1) mmol/L Chloride 98 (98-107) mmol/L Carbon Dioxide 28 (22-30) mmol/L Anion Gap 8 mmol/L BUN 9 (9-20) mg/dL Creatinine 0.38 L (0.66-1.25) mg/dL Est GFR (CKD-EPI)AfAm >90 (>60 ml/min/1.73 sqM) Est GFR (CKD-EPI)NonAf >90 (>60 ml/min/1.73 sqM) Glucose 127 H (74-99) mg/dL Calcium 8.9 (8.4-10.2) mg/dL Total Bilirubin 0.8 (0.2-1.3) mg/dL AST 63 H (17-59) U/L ALT 24 (4-49) U/L Alkaline Phosphatase 424 H (38-126) U/L Total Protein 5.9 L (6.3-8.2) g/dL Albumin 2.7 L (3.5-5.0) g/dL Disposition Clinical Impression: Headache Disposition: HOME SELF-CARE Condition: Good Instructions (If sedation given, give patient instructions): Recurrent Seizures in Adults (ED) Is patient prescribed a controlled substance at d/c from ED?: No Referrals: David Fam MD [Primary Care Provider] - 1-2 days Time of Disposition: 17:59
[2019-12-26 17:32] LABS: Anisocytosis Slight; Basophils % (A) 0 %; Eosinophils # (A) 0.2 k/uL (0-0.7); Eosinophils % (A) 1 %; HCT 31.5 % (39.0-53.0); HGB 9.5 gm/dL (13.0-17.5); Hypochromasia Moderate; Lymphocytes # (A) 0.6 k/uL (1.0-4.8); Lymphocytes % (A) 4 %; MCH 22.2 pg (25.0-35.0); MCHC 30.2 g/dL (31.0-37.0); MCV 73.5 fL (80.0-100.0); Mean Platelet Volume 6.4; Microcytosis Moderate; Monocytes # (A) 0.9 k/uL (0-1.0); Monocytes % (A) 6 %; Neutrophils # (A) 13.3 k/uL (1.3-7.7); Neutrophils % (A) 88 %; Platelet Count 502 k/uL (150-450); RBC 4.28 m/uL (4.30-5.90); RDW 16.8 % (11.5-15.5); WBC 15.2 k/uL (3.8-10.6)
[2019-12-26 17:43] LABS: INR 1.3 (<1.2); Partial Thromboplastin Time 22.7 sec (22.0-30.0); Prothrombin Time 12.8 sec (9.0-12.0)
[2019-12-26 17:46] LABS: ALT 24 U/L (4-49); AST 63 U/L (17-59); African American GFR (CKD) >90 (>60 ml/min/1.73 sqM); Albumin 2.7 g/dL (3.5-5.0); Alkaline Phosphatase 424 U/L (38-126); Anion Gap 8 mmol/L; Blood Urea Nitrogen 9 mg/dL (9-20); Calcium 8.9 mg/dL (8.4-10.2); Carbon Dioxide 28 mmol/L (22-30); Chloride 98 mmol/L (98-107); Glucose 127 mg/dL (74-99); Non-African American GFR(CKD) >90 (>60 ml/min/1.73 sqM); Potassium 3.5 mmol/L (3.5-5.1); Sodium 134 mmol/L (137-145); Total Bilirubin 0.8 mg/dL (0.2-1.3); Total Protein 5.9 g/dL (6.3-8.2)
[2019-12-26 17:47] VITALS: RESP 20
[2019-12-26 18:19] VITALS: BP 119/72; PULSE 115; TEMP 98.7
== END 2019-12-26 19:02 | disposition home or self-care (01) ==
LOC: EC 16:25
DX: G43.909 Migraine, unspecified, not intractable, without status migrainosus (principal); F31.9 Bipolar disorder, unspecified; C79.49 Secondary malignant neoplasm of other parts of nervous system; G40.909 Epilepsy, unspecified, not intractable, without status epilepticus; Z79.899 Other long term (current) drug therapy; Z88.8 Allergy status to other drugs, medicaments and biological substances; Z91.013 Allergy to seafood; Z85.038 Personal history of other malignant neoplasm of large intestine; Z87.891 Personal history of nicotine dependence; Z92.21 Personal history of antineoplastic chemotherapy
CPT/HCPCS: 36415; 93005; 80053; 85025; 85610; 85730; 99285; 96365; 96375; J1170; J1953